=== PATIENT | male | born 1935 | race Hispanic/Latino ===

== ENCOUNTER 2020-07-10 16:08 | Inpatient (IN) | payer OTHER ==
[2020-07-10] MEDS ORDERED: GLUCAGON 1 MG/VIAL IM PRN (17:02)
[2020-07-10 17:13] VITALS: BMI 29.0
[2020-07-10] MEDS ORDERED: D50W 25 GM/50 ML SYRINGE IV PRN (17:24)
[2020-07-10] MEDS: METOPROLOL TAR 25 MG TAB PO SCH (17:51)
[2020-07-10 18:00] LABS: Absolute Lymphocytes (CBC) 1.4 K/uL (0.7-4.9); Basophils % 1.2 % (0-1.3); Hematocrit 22.4 % (39.6-49.0); Lymphocytes % 20.8 % (15.3-44.8); MPV 8.8 fL (7.6-11.3); RBC Red Blood Cell Count 3.96 M/uL (4.33-5.43)
[2020-07-10] MEDS ORDERED: D50W 25 GM/50 ML VIAL IV PRN (18:00)
[2020-07-10 18:13] LABS: Potassium 4.4 mmol/L (3.5-5.1)
[2020-07-10] MEDS ORDERED: PNEUMOCOCCAL VACCINE 0.5 ML IMVAC ONE (19:00)
[2020-07-10 19:21] LABS: Blood Morphology Comment NOTED (NOT SEEN); Platelet Estimate ADEQ; White Blood Cell Scan OK (OK)
[2020-07-10 19:22] LABS: Anisocytosis 3+; Poikilocytosis 3+
[2020-07-10] MEDS: INSULIN -REGULAR HUMAN 50 UNIT/0.5 ML ML SQ SCH (21:00)
[2020-07-10] MEDS ORDERED: ACETAMINOPHEN 500 MG TAB PO PRN (21:01)
[2020-07-10] MEDS: NA CHLORIDE 0.9% 250 ML ONE ×2 (23:40)
[2020-07-11] MEDS: METOPROLOL TAR 25 MG TAB PO SCH ×3 (05:51→18:02)
[2020-07-11 05:59] LABS: Absolute Lymphocytes (CBC) 2.1 K/uL (0.7-4.9); Basophils % 2.1 % (0-1.3); Hematocrit 25.6 % (39.6-49.0); Lymphocytes % 32.9 % (15.3-44.8); MPV 8.5 fL (7.6-11.3); RBC Red Blood Cell Count 4.31 M/uL (4.33-5.43)
[2020-07-11] MEDS: INSULIN -REGULAR HUMAN 50 UNIT/0.5 ML ML SQ SCH ×4 (07:30→21:00)
--- NOTE | 2020-07-11 08:59 | RAD REPORT ---
EXAM DESCRIPTION: CT - Angio Aorta For Dissection - 07/11/2020 7:46 am CLINICAL HISTORY: AAA, chest pain, abdominal pain COMPARISON: Two view chest June 29, 2020, CT abdomen May 2007 TECHNIQUE: Dynamically enhanced 3 mm thick images of the chest, abdomen, and upper pelvis were obtai navya during administration of approximately 150mL Isovue 370 IV contrast. Sagittal and coronal reconst ruction images were generated using MIP and reviewed. Exam utilizes a protocol to evaluate entire cou rse of the aorta. All CT scans are performed using dose optimization technique as appropriate and may include automated exposure control or mA/KV adjustment according to patient size. FINDINGS: Aorta is normal in diameter with no dissection or other acute aortic findings. Aortic wall atherosclerotic calcifications are present without displacement of the calcification. No mural throm bus along the mercedes. Reconstruction images show no significant findings. Prominent iliac wall atherosclerotic calcifications are present without stenosis or luminal narrowing . Left-sided common femoral artery and proximal leg arterial branches are unremarkable. Postsurgical changes are present at the right common femoral artery with multiple bypass grafts in place. All of t he stents appear thrombosed. There is a patent profunda or muscular branch seen in the upper right le g. Pulmonary arteries are normal as well. No cardiomegaly, pericardial thickening or pericardial effusio n. Sternotomy wires are in place. CABG surgical changes are noted. No dense mass or consolidation. A few small scattered ground-glass opacities are present in the lung parenchyma. These are probably areas of minimal atelectasis. Minimal infiltrate is unlikely. No pleur al thickening, pleural effusion or pneumothorax. No abnormal mediastinal or hilar mass or lymphadenopathy seen. No chest wall mass or abnormal axillar y lymphadenopathy. Patient has a large hiatal hernia with approximately 30% of the stomach intrathora cic. Celiac, SMA and renal arteries show no suspicious findings. No mass lesions of the liver, spleen or p ancreas seen. Accessory splenic nodule is present. Full assessment is limited on a single phase acqui sition study. Renal function is symmetric. No hydronephrosis or acute renal parenchymal finding. Part ially filled urinary bladder shows no suspicious finding. Enlarged prostate gland noted. No mass or abnormal lymphadenopathy. No free air, free fluid or inflammatory stranding. No acute bowel finding seen. There is a large amount of stool present filling the colon. Rectum is di stended to 6.5 cm by a large stool volume. Bony degenerative changes are present. No pathologic bone finding identified. IMPRESSION: Negative CT scan of the aorta for dissection, aneurysm or acute finding. 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 A patent profunda or muscular branche is present. Multiple small ground-glass opacities in the lung parenchyma favored to be atelectasis rather than in filtrate. Follow-up CT imaging in 3-6 months can be performed to monitor these findings. Additional nonacute findings detailed in the body of the report.
[2020-07-11] MEDS: MUPIROCIN 2% OINT 22GM TUBE TOP SCH (09:01)
[2020-07-11 10:23] LABS: Anisocytosis 1+; Blood Morphology Comment NOTED (NOT SEEN); Hypochromasia 3+; Platelet Estimate ADEQ; Poikilocytosis 1+
[2020-07-11 10:53] LABS: Urine Appearance CLEAR (Clear); Urine Bilirubin NEGATIVE (Negative); Urine Blood NEGATIVE (Negative); Urine Color YELLOW (Yellow); Urine Glucose NEGATIVE (Negative); Urine Microscopic Reflex NO UMIC; Urine Protein NEGATIVE (Negative); Urine Specific Gravity >=1.030 (1.005-1.030); Urine pH 5.5 (5.0-7.0)
[2020-07-11] MEDS ORDERED: cloNIDine HCL 0.1 MG TAB PO PRN (11:18)
[2020-07-11] MEDS ORDERED: NA CHLORIDE 0.9% 250 ML ONE (11:18)
[2020-07-11] MEDS ORDERED: FUROSEMIDE 20 MG/ 2ML VIAL IV SCH (14:03)
--- NOTE | 2020-07-11 20:12 | PN ---
Date of Progress Note: 07/11/2020 Subjective: The patient is in the process of getting his second unit of blood. He does get bradycar dic with his combination of medications. see how this plays out after he gets his second unit of blood. CT scan showed blockages of his stents on the right lower leg, where he has had all o f his problems including nonhealing of the ulcer on the anterior portion of his leg. We will try and obtain prior records to see if this is acute or chronic. At some point, he may need endoscopy as we ll. In the meantime, we will place him back on his Plavix after second unit of blood. His circulati on does remain an issue. HR/MODL Voice ID: [id number] Report ID: [id number]
[2020-07-11] MEDS ORDERED: METOPROLOL TAR 25 MG TAB PO SCH (21:00)
[2020-07-11] MEDS: HOME MED 1 EA UNK (Pravastatin Sodium [Pravastatin Sodium] 40 MG Tablet) PO SCH (21:00)
[2020-07-11] MEDS ORDERED: CILOSTAZOL 50 MG PO SCH (21:00)
[2020-07-11] MEDS: GABAPENTIN 400 MG CAP PO SCH (21:32)
[2020-07-11] MEDS: TAMSULOSIN 0.4 MG SR CAP PO SCH (21:32)
[2020-07-11] MEDS ORDERED: PANTOPRAZOLE 40MG TABLET PO ONE (22:30)
[2020-07-11] MEDS: cilostazoL 100 MG TAB PO SCH (22:32)
[2020-07-12 05:17] LABS: Absolute Lymphocytes (CBC) 2.2 K/uL (0.7-4.9); Hematocrit 27.3 % (39.6-49.0); Lymphocytes % 27.4 % (15.3-44.8); MPV 8.7 fL (7.6-11.3); Magnesium 2.5 mg/dL (1.8-2.4); Potassium 3.7 mmol/L (3.5-5.1); RBC Red Blood Cell Count 4.55 M/uL (4.33-5.43)
[2020-07-12] MEDS: METOPROLOL TAR 25 MG TAB PO SCH ×2 (06:30→22:35)
[2020-07-12] MEDS: INSULIN -REGULAR HUMAN 50 UNIT/0.5 ML ML SQ SCH ×4 (07:30→21:00)
[2020-07-12] MEDS: MUPIROCIN 2% OINT 22GM TUBE TOP SCH (09:00)
[2020-07-12] MEDS: cilostazoL 100 MG TAB PO SCH ×2 (09:00→21:00)
[2020-07-12] MEDS: GABAPENTIN 400 MG CAP PO SCH ×3 (11:08→22:35)
[2020-07-12] MEDS: CLOPIDOGREL 75 MG TABLET PO SCH (11:09)
[2020-07-12 12:12] LABS: Hematocrit 28.1 % (39.6-49.0)
[2020-07-12] MEDS: PANTOPRAZOLE 40MG TABLET PO SCH ×2 (12:46→22:35)
--- NOTE | 2020-07-12 15:02 | CON ---
Date of Consultation: 07/12/2020 Reason For Consultation: Nonhealing wound, right BKA stump. History Of Present Illness: The patient is an 84-year-old gentleman, who [facility] nonhealing wound that needed debridement and we began his workup and we are going to de bride him as an outpatient; however, the patient's routine labs showed that he was very anemic and wo rkup was begun. He has been transfused and he is not ready for debridement and he was transfused a u nit and a half yesterday blood. I have not been able to get guaiac his stool to see if he is bleedin g or not, but it appears that he has anemia of chronic disease. He is awake, alert. No fever or chi lls. No sore throat, runny nose, cough, headaches, or dizziness. No chest pain. Review of Systems: Otherwise unremarkable. Past Medical History: History of diabetes, hypertension. Past Surgical History: Right below-knee amputation. Allergies: NO ALLERGIES. Social History: The patient currently does not smoke or drink. Family History: Noncontributory. Physical Examination: Vital Signs: Stable. He is afebrile. General: He is awake, alert, and oriented x3. Head and Neck: Cranial nerves 2 through 12 grossly within normal limits. No neck masses. No JVD. Throat clear. Neck: Supple. Chest: Clear. Heart: S1, S2. Abdomen: Soft. Extremity: Diminished dorsalis pedis on the left and posterior tibial on the right BKA stump. The donna solitario does have hair on his BKA stump and there is a wound anterior on the stump. The sacral pressu re wound with moderate amount of fibrin of approximately 1 cm in diameter with minimal erythema, but no warmth. Minimal edema. Laboratory Data: His white count is 8000. His H and H are 8.1 and 27.3. Chemistry reviewed. The p atgregg had a CT dissection study done, which was reviewed with the radiologist. Essentially, the pat ient has occlusion of the right common femoral artery with multiple bypass grafts, but he has a paten t profunda and a muscular branch in the upper right leg, which is supplying the BKA stump. Assessment: Nonhealing wound, right BKA stump. Recommendations: We will go ahead and debride the wound in the morning. The patient and family unde rstand the risks, benefits, and alternatives and agree. Plan of care discussed in detail with Dr. Latricia fuchs. YANELI/JAMI Voice ID: [id number] Report ID: [id number]
--- NOTE | 2020-07-12 16:14 | EKG ---
Test Date: 2020-07-10 Test Time: 17:40:51 Regulatory Affairs Internship: [facility] MEASUREMENT RESULTS: Intervals: Rate: 58 CA: 250 QRSD: 74 QT: 434 QTc: 426 [place]: P: 58 CA: 250 QRS: 73 T: -32 INTERPRETIVE STATEMENTS: Sinus bradycardia with 1st degree AV block Abnormal QRS-T angle, consider primary T wave abnormality Abnormal ECG Compared to ECG 06/29/2020 09:44:29 T-wave abnormality now present Sinus rhythm no longer present Ventricular premature complex(es) no longer present ST (T wave) deviation no longer present Electronically Signed On 07-12-20 16:07:36 CDT by Dale Ruiz
[2020-07-12] MEDS ORDERED: BISACODYL E.C. 5 MG TAB PO ONE (18:00)
[2020-07-12] MEDS: HOME MED 1 EA UNK (Pravastatin Sodium [Pravastatin Sodium] 40 MG Tablet) PO SCH (21:00)
--- NOTE | 2020-07-12 21:38 | PN ---
Date of Progress Note: 07/12/2020 This information was obtained from his granddaughter. She states that during the blood transfusion _ he did have some visual disturbances, which have now improved markedly and none have been p rior to the blood and blood transfusion when he had the BKA in January with no issues. He still not had a bowel movement. A suppository would be necessary to determine his status as far as that is co ncerned. Otherwise, he is scheduling for a surgical debridement of his nonhealing wound anterior estela mp area. HR/MODL Voice ID: [id number] Report ID: [id number]
[2020-07-12] MEDS: TAMSULOSIN 0.4 MG SR CAP PO SCH (22:35)
[2020-07-13 04:17] LABS: Basophils % 0.7 % (0-1.3); Hematocrit 28.4 % (39.6-49.0); Lymphocytes % 27.9 % (15.3-44.8); MPV 8.8 fL (7.6-11.3); RBC Red Blood Cell Count 4.68 M/uL (4.33-5.43)
[2020-07-13 04:33] LABS: Magnesium 2.4 mg/dL (1.8-2.4); Potassium 3.8 mmol/L (3.5-5.1)
[2020-07-13] MEDS: METOPROLOL TAR 25 MG TAB PO SCH (06:00)
[2020-07-13] MEDS: INSULIN -REGULAR HUMAN 50 UNIT/0.5 ML ML SQ SCH ×2 (07:30→11:30)
[2020-07-13] MEDS: PANTOPRAZOLE 40MG TABLET PO SCH (07:30)
[2020-07-13] MEDS: MUPIROCIN 2% OINT 22GM TUBE TOP SCH (09:00)
[2020-07-13] MEDS: GABAPENTIN 400 MG CAP PO SCH (09:00)
[2020-07-13] MEDS: cilostazoL 100 MG TAB PO SCH (09:00)
[2020-07-13] MEDS ORDERED: NA CHLORIDE 0.9% 500 ML ONE (09:37)
[2020-07-13] MEDS ORDERED: propofoL 200 MG/20 ML VIAL IV ONE (09:43)
[2020-07-13] MEDS: COLLAGENASE 30 GM OINTMENT TOP ONE ×2 (09:43→10:42)
[2020-07-13] MEDS ORDERED: LIDOCAINE 2% MPF 5 ML VIAL ONE (09:43)
[2020-07-13] MEDS: CEFAZOLIN/SWI 1gm 1 GM/10 ML SYR ONE ×2 (10:19→10:25)
--- NOTE | 2020-07-13 10:39 | P.OP ---
English Faculty Member: NONE,NONE Preoperative diagnosis: Non healing wound Right BKA Postoperative diagnosis: same Primary procedure: Wide Excision Right BKA wound 2x1 cm to sq Anesthesia: General Estimated blood loss: min Specimen: Debridement tissue Findings: as above Complications: None Transferred to: Recovery Room Condition: Good
[2020-07-13] MEDS ORDERED: CODEINE 30MG/APAP 300MG TAB PO PRN (10:40)
[2020-07-13] MEDS ORDERED: KETOROLAC 30 MG/ML INJ ONE (10:54)
--- NOTE | 2020-07-13 11:18 | OP ---
Date of Procedure: 07/13/2020 Surgeon: Elia Gonzales MD Voice Network Administrator: None. Preoperative Diagnosis: Nonhealing wound, right BKA. Postoperative Diagnosis: Nonhealing wound, right BKA. Procedure: Excisional debridement of right BKA wound 2 x 1 cm to subcutaneous tissue. Estimated Blood Loss: Minimal. Specimen: Debridement tissue. Findings: Above. Anesthesia: General. Complications: None. Disposition: The patient tolerated the procedure in stable condition and taken to Recovery in good g eneral condition. Procedure In Detail: The patient was brought to the OR and placed in supine position. General anest hesia begun. The patient was prepped and draped in the usual sterile fashion and then Marcaine 0.5% was infiltrated locally. A 15-blade was used to make a 2 x 1 cm incision, circular in nature in the anterior aspect of the right BKA. Subcutaneous tissue was divided until healthy bleeding tissue coul d be identified and then the entire nonhealing ulcer was excised and sent to Pathology. Wound was ir rigated. Bleeding was controlled with cautery. Collagenase dressing was applied. The patient kim ated the procedure in stable condition, taken to Recovery in good general condition. /MODL Voice ID: [id number] Report ID: [id number]
[2020-07-13 12:46] VITALS: O2SAT 94
[2020-07-13 12:59] VITALS: BP 141/65; TEMP 97.6
[2020-07-13] MEDS: CLOPIDOGREL 75 MG TABLET PO SCH (13:02)
== END 2020-07-13 15:21 | disposition home or self-care (01) | DRG 465 ==
LOC: 4TH 16:08 → OBSVTOIN 07-12 07:51
PROVIDERS: ADMIT Family Medicine; ATTEND Family Medicine
PROC: 30233N1 Transfusion of Nonautologous Red Blood Cells into Peripheral Vein, Percutaneous Approach (ICD-10-PCS; 2020-07-10)
PROC: 0JBN0ZZ Excision of Right Lower Leg Subcutaneous Tissue and Fascia, Open Approach (ICD-10-PCS; principal; 2020-07-13 10:30)
DX: T87.89 Other complications of amputation stump (principal); I10 Essential (primary) hypertension; E11.9 Type 2 diabetes mellitus without complications; D63.8 Anemia in other chronic diseases classified elsewhere; Z89.611 Acquired absence of right leg above knee; Z89.511 Acquired absence of right leg below knee; Z20.822 Contact with and (suspected) exposure to COVID-19
CPT/HCPCS: 36415; 36430; 71275; 74175; 80048; 81003; 82274; 82947; 83735; 85014; 85018; 85025; 86850; 86900; 86901; 88304; 93005; G0378; J0690; J1940; J2704; J3590; J7040; J7050; P9016; Q9967; U0003

== ENCOUNTER 2022-12-26 13:52 | Inpatient (IN) | payer OTHER ==
--- OUTSIDE RECORDS SUMMARY | 2022-12-26 14:19 | XMS REPORT | Continuity of Care Document ---
:1935 Author Organization [facility] t Address [address] [facility] [address] [place] [address] Care Team Providers Name Role Phone PCP, PATIENT DOES NOT HAVE A Primary Care Physician UnavailEMA Azul JR Attending Clinician Unavailable Justo Lopez Attending Clinician Unavailable Doctor Unassigned, [place] Attending Clinician Unavailable Shakeel Fritz Attending Clinician Unavailable Kristan Gunter RN Attending Clinician Vero Messer Attending Clinician Tia Gutiérrez Attending Clinician Faculty, Vascular Surg Attending Clinician Unavailable Bryanna Pradhan Attending Clinician BRYANNA GR Attending Clinician Unavailable Ema Sam MD Attending Clinician Jr Ferguson MD Attending Clinician Estrellita So MD Attending Clinician John Rush MD, Rey Attending Clinician REY EDMONDSON Attending Clinician Unavailable Hattie [place], Carole Saeed Attending Clinician [phone] Power [place], Mireille Edmondson Attending Clinician Ha Martin MD Attending Clinician Miranda [place], Bianca Moseley Attending Clinician [phone] Mariana [place], Gerardo Thomas Attending Clinician Ainsley BURGOS, Seun العلي Attending Clinician Unavailable ÁNGEL PEÑA Attending Clinician Unavailable Lisandra Fairbakns MD Attending Clinician Mariana [place], Ángel Attending Clinician SUSAN HOLLINGSWORTH Attending Clinician Unavailable Bj [place], Shakeel Falk Attending Clinician Darrick [place], Susan Attending Clinician GERI SABA Attending Clinician Unavailable Dena Faye DO Attending Clinician Geri Saba MD Attending Clinician Maria Guadalupe BURGOS, Ashli Attending Clinician Winston Prieto MD Attending Clinician CAMMIE GREENBERG Attending Clinician Unavailable Kira Leija MD Attending Clinician Cammie Greenberg MD Attending Clinician EMA SAM JR Admitting Clinician Unavailable Yefri Salgado Admitting Clinician Unavailable Ema Sam MD Admitting Clinician Power [place], Mireille Edmondson Admitting Clinician ÁNGEL PEÑA Admitting Clinician Unavailable Mariana [place], Ángel Admitting Clinician SUSAN HOLLINGSWORTH Admitting Clinician Unavailable Darrick [place], Susan Admitting Clinician GERI SABA Admitting Clinician Unavailable Geri Saba MD Admitting Clinician WINSTON PRIETO Admitting Clinician Unavailable Winston Prieto MD Admitting Clinician Payers Payer Name Policy Type Policy Number Effective Date Expiration Date Bernabe almanza [facility] [id number] 2019 2019 EMERGENCY 00:00:00 00:00:00 MEDICAID Problems Condition Condition Condition Status Onset Resolution Last Treating Co mments Source Name Details Category Date Date Treatment Clinician Date Thrombosis Thrombosis Disease Active 2019-03 U nivers of of 03-27 ity of femoro[place] Medical bypass bypass Branch graft, graft, initial initial encounter encounter Pain in Pain in Disease Active 2019-03 Overview: Univ ers right right 03-27 Added ity of lower leg lower leg 00:00: [place] ally from Medical request Branch for surgery [id number] Peripheral Peripheral Disease Active 2019-03 Overview : Univers artery artery 04 Added ity of disease disease 00:00: automatic [place] 00 ally from Medical request Branch for surgery [id number] PAD PAD Disease Active 2019-03 Overview: Univer s (periphera (periphera 0-26 Added it y of l artery l artery 00:00: automatic [place] disease) disease) 00 ally from Med ical request Branch for surgery [id number] 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 9-16 it y of constipati constipati [place] Medical Branch Chronic Chronic Disease Active Univers osteomyeli osteomyeli 9-15 it y of tis of tis of 00:00: [place] right foot right foot 00 Me dical Branch Chronic Chronic Disease Active Univers infection infection 9-11 ity of as as 00:00: [place] complicati complicati 00 Me dical on of on of Branch amputation amputation NIKO (acute NIKO (acute Disease Active U nivers kidney kidney 6- ity of injury) injury) 00:00: [place] 00 Medical Branch Melena Melena Disease Active Overview: Univer s 6-08 Added ity of 00:00: automatic [place] 00 ally from Medical request Branch for surgery [id number] Pain of Pain of Disease Active Overview: Univ ers toe, toe, 6-08 Added ity of unspecifie unspecifie 00:00: automatic [place] d d 00 ally from Medical laterality laterality request B ranch for surgery [id number] Foot Foot Disease Active Univers infection infection 5-23 ity of 00:00: [place] 00 Medical Branch Cellulitis Cellulitis Disease Active U nivers of right of right 5-22 ity of foot foot 00:00: [place] 00 Medical Branch Anemia Anemia Disease Active Univers 5-15 ity of 00:00: [place] 00 Medical Branch Diabetic Diabetic Disease Active Unive rs toe ulcer toe ulcer 3-15 ity of 00:00: [place] 00 Medical Branch Right foot Right foot Disease Active Overview : Univers pain pain 3-15 Added ity of 00:00: automatic [place] 00 ally from Medical request Branch for surgery [id number] Coronary Coronary Disease Active Unive rs atheroscle atheroscle 3-17 it y of rosis of rosis of 00:00: [place] white earth white earth 00 Medical coronary coronary Branch artery artery Essential Essential Disease Active Overview: Univers hypertensi hypertensi 3-17 ICD10 it y of on on 00:00: Diagnosis [place] 00 Term Medical Airplane Inspector Branch Utility 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 3-17 ICD10 ity of mellitus mellitus 00:00: Diagnosis [place] without without 00 Term Medical complicati complicati Airplane Inspector Branch ons ons Utility Well Well Disease Active Univers controlled controlled 3-17 it y of diabetes diabetes 00:00: [place] mellitus mellitus 00 Medica l Branch Coronary Coronary Disease Active Unive rs atheroscle atheroscle 3-17 it y of rosis of rosis of 00:00: [place] white earth white earth 00 Medical coronary coronary Branch artery artery Severe Severe Disease Active Univers peripheral peripheral 2-28 it y of arterial arterial 00:00: [place] disease disease 00 Medical Branch PAD PAD Disease Active Univers (periphera (periphera 2-28 it y of l artery l artery 00:00: [place] disease) disease) 00 Medica l Branch Allergies, Adverse Reactions, Alerts Allergy Allergy Status Severity Reaction(s) Onset Inactive Treating Comm ents Source Name Type Date Date Clinician NO KNOWN Drug Active Univers ALLERGIE Class ity of S [facility] Social History Social Habit Start Date Stop Date Quantity Comments Source Exposure to Not sure University of SARS-CoV-2 [place] [facility] (event) Branch Tobacco use and 2020-03-02 2020-03-02 Never used Universit y of exposure 00:00:00 00:00:00 [facility] Alcohol intake 2020-03-02 2020-03-02 Current University of 00:00:00 00:00:00 non-drinker of [facility] alcohol Branch (finding) History SDOH 2019-12-04 2019-12-04 4 University o f Financial 00:00:00 00:00:00 [place] [facility] History SDUT Food 2019-12-04 2019-12-04 1 Univers ity of Worry 00:00:00 00:00:00 [place] [facility] History SDUT Food 2019-12-04 2019-12-04 1 Univers ity of Scarcity 00:00:00 00:00:00 [place] [facility] History [facility] 2019-12-04 2019-12-04 1 University o f Transport Med 00:00:00 00:00:00 [place] Medic al Branch History [facility] 2019-12-04 2019-12-04 1 University o f Transport Non-Med 00:00:00 00:00:00 [place] M edical Branch Tobacco Comment 2019-08-06 2019-08-06 stopped 1988 Univers ity of 00:00:00 00:00:00 [facility] Sex Assigned At [birth year] Universit y of 00:00:00 00:00:00 [facility] Smoking Status Start Date Stop Date Source Former smoker 2020-03-02 00:00:00 2020-03-02 00:00:00 Universi ty of [facility] Medications Ordered Filled Start Stop Current Ordering Indication Dosage Frequency Signature Comments Components Source Medication Medication Date Date Medication? Clinician (SIG) Name Name acetaminoph 2019-03- No 2745 1{tbl} Take 1 U nivers en-codeine 04-25 tablet by ity of 300-30 mg 00:00: 05:59 mouth [place] tablet 00 :00 every 6 Medical (six) Branch hours as needed for Pain (scale 7-10) for up to 30 days. Indication s: chronic pain acetaminoph 2019-03- No 2745 1{tbl} Take 1 U nivers en-codeine 2-02 01-02 tablet by ity of 300-30 mg 00:00: 05:59 mouth [place] tablet 00 :00 every 6 Medical (six) Branch hours as needed for Pain (scale 7-10) for up to 30 days. Indication s: chronic pain acetaminoph 2019-03 No 2745 1{tbl} Take 1 U nivers en-codeine 2-02 01-02 tablet by ity of 300-30 mg 00:00: 05:59 mouth [place] tablet 00 :00 every 6 Medical (six) Branch hours as needed for Pain (scale 7-10) for up to 30 days. Indication s: chronic pain acetaminoph 2019-03 No 274 1{tbl} Take 1 U nivers en-codeine 2-02 -02 tablet by ity of 300-30 mg 00:00: 05:59 mouth [place] tablet 00 :00 every 6 Medical (six) Branch hours as needed for Pain (scale 7-10) for up to 30 days. Indication s: chronic pain acetaminoph 2019-03 No 274 1{tbl} Take 1 U nivers en-codeine 2-02 -02 tablet by ity of 300-30 mg 00:00: 05:59 mouth [place] tablet 00 :00 every 6 Medical (six) Branch hours as needed for Pain (scale 7-10) for up to 30 days. Indication s: chronic pain acetaminoph 2019-03 No 274 1{tbl} Take 1 U nivers en-codeine 2-02 -02 tablet by ity of 300-30 mg 00:00: 05:59 mouth [place] tablet 00 :00 every 6 Medical (six) Branch hours as needed for Pain (scale 7-10) for up to 30 days. Indication s: chronic pain acetaminoph 2019-03 Yes 4647 1{tbl} Take 1 Un martha en-codeine 1-19 tablet by ity of 300-30 mg 00:00: mouth [place] tablet 00 every 4 Medical (four) Branch hours as needed for Pain (scale 7-10) for up to 30 doses. Indication s: acute pain acetaminoph 2019-03 Yes 4647 1{tbl} Take 1 Un martha en-codeine 1-19 tablet by ity of 300-30 mg 00:00: mouth [place] tablet 00 every 4 Medical (four) Branch hours as needed for Pain (scale 7-10) for up to 30 doses. Indication s: acute pain acetaminoph 2020-1 Yes 4647 1{tbl} Take 1 Un martha en-codeine 1-19 tablet by ity of 300-30 mg 00:00: mouth [place] tablet 00 every 4 Medical (four) Branch hours as needed for Pain (scale 7-10) for up to 30 doses. Indication s: acute pain acetaminoph 2020-1 Yes 4647 1{tbl} Take 1 Un martha en-codeine 1-19 tablet by ity of 300-30 mg 00:00: mouth [place] tablet 00 every 4 Medical (four) Branch hours as needed for Pain (scale 7-10) for up to 30 doses. Indication s: acute pain acetaminoph 2020-1 Yes 4647 1{tbl} Take 1 Un martha en-codeine 1-19 tablet by ity of 300-30 mg 00:00: mouth [place] tablet 00 every 4 Medical (four) Branch hours as needed for Pain (scale 7-10) for up to 30 doses. Indication s: acute pain acetaminoph 2020-1 Yes 4647 1{tbl} Take 1 Un martha en-codeine 1-19 tablet by ity of 300-30 mg 00:00: mouth [place] tablet 00 every 4 Medical (four) Branch hours as needed for Pain (scale 7-10) for up to 30 doses. Indication s: acute pain acetaminoph 2020-1 Yes 4647 1{tbl} Take 1 Un martha en-codeine 1-19 tablet by ity of 300-30 mg 00:00: mouth [place] tablet 00 every 4 Medical (four) Branch hours as needed for Pain (scale 7-10) for up to 30 doses. Indication s: acute pain acetaminoph 2020-1 Yes 4647 1{tbl} Take 1 Un martha en-codeine 1-19 tablet by ity of 300-30 mg 00:00: mouth [place] tablet 00 every 4 Medical (four) Branch hours as needed for Pain (scale 7-10) for up to 30 doses. Indication s: acute pain acetaminoph 2020-1 Yes 4647 1{tbl} Take 1 Un martha en-codeine 1-19 tablet by ity of 300-30 mg 00:00: mouth [place] tablet 00 every 4 Medical (four) Branch hours as needed for Pain (scale 7-10) for up to 30 doses. Indication s: acute pain acetaminoph 2020-1 Yes 4647 1{tbl} Take 1 Un martha en-codeine 1-19 tablet by ity of 300-30 mg 00:00: mouth [place] tablet 00 every 4 Medical (four) Branch hours as needed for Pain (scale 7-10) for up to 30 doses. Indication s: acute pain acetaminoph 2020-1 Yes 4647 1{tbl} Take 1 Un martha en-codeine 1-19 tablet by ity of 300-30 mg 00:00: mouth [place] tablet 00 every 4 Medical (four) Branch hours as needed for Pain (scale 7-10) for up to 30 doses. Indication s: acute pain acetaminoph 2020-1 Yes 4647 1{tbl} Take 1 Un martha en-codeine 1-19 tablet by ity of 300-30 mg 00:00: mouth [place] tablet 00 every 4 Medical (four) Branch hours as needed for Pain (scale 7-10) for up to 30 doses. Indication s: acute pain acetaminoph 2020-1 Yes 4647 1{tbl} Take 1 Un martha en-codeine 1-19 tablet by ity of 300-30 mg 00:00: mouth [place] tablet 00 every 4 Medical (four) Branch hours as needed for Pain (scale 7-10) for up to 30 doses. Indication s: acute pain acetaminoph 2020-1 Yes 4647 1{tbl} Take 1 Un martha en-codeine 1-19 tablet by ity of 300-30 mg 00:00: mouth [place] tablet 00 every 4 Medical (four) Branch hours as needed for Pain (scale 7-10) for up to 30 doses. Indication s: acute pain acetaminoph 2020-1 Yes 4647 1{tbl} Take 1 Un martha en-codeine 1-19 tablet by ity of 300-30 mg 00:00: mouth [place] tablet 00 every 4 Medical (four) Branch hours as needed for Pain (scale 7-10) for up to 30 doses. Indication s: acute pain acetaminoph 2020-1 Yes 4647 1{tbl} Take 1 Un martha en-codeine 1-19 tablet by ity of 300-30 mg 00:00: mouth [place] tablet 00 every 4 Medical (four) Branch hours as needed for Pain (scale 7-10) for up to 30 doses. Indication s: acute pain acetaminoph 2020-1 Yes 4647 1{tbl} Take 1 Un martha en-codeine 1-19 tablet by ity of 300-30 mg 00:00: mouth [place] tablet 00 every 4 Medical (four) Branch hours as needed for Pain (scale 7-10) for up to 30 doses. Indication s: acute pain acetaminoph 2020-1 Yes 4647 1{tbl} Take 1 Un martha en-codeine 1-19 tablet by ity of 300-30 mg 00:00: mouth [place] tablet 00 every 4 Medical (four) Branch hours as needed for Pain (scale 7-10) for up to 30 doses. Indication s: acute pain acetaminoph 2020-1 Yes 4647 1{tbl} Take 1 Un martha en-codeine 1-19 tablet by ity of 300-30 mg 00:00: mouth [place] tablet 00 every 4 Medical (four) Branch hours as needed for Pain (scale 7-10) for up to 30 doses. Indication s: acute pain clopidogreL 2020- Yes 75mg Take 75 mg Univers 75 mg 1-11 by mouth ity of tablet 03:45: daily. [address] clopidogreL 2020-1 Yes 75mg Take 75 mg Univers 75 mg 1-11 by mouth ity of tablet 03:45: daily. [address] clopidogreL 2020-1 Yes 75mg Take 75 mg Univers 75 mg 1-11 by mouth ity of tablet 03:45: daily. [address] clopidogreL 2020-1 Yes 75mg Take 75 mg Univers 75 mg 1-11 by mouth ity of tablet 03:45: daily. [address] clopidogreL 2020-1 Yes 75mg Take 75 mg Univers 75 mg 1-11 by mouth ity of tablet 03:45: daily. [address] clopidogreL 2020-1 Yes 75mg Take 75 mg Univers 75 mg 1-11 by mouth ity of tablet 03:45: daily. [address] clopidogreL 2020-1 Yes 75mg Take 75 mg Univers 75 mg 1-11 by mouth ity of tablet 03:45: daily. [address] clopidogreL 2020-1 Yes 75mg Take 75 mg Univers 75 mg 1-11 by mouth ity of tablet 03:45: daily. [address] clopidogreL 2020-1 Yes 75mg Take 75 mg Univers 75 mg 1-11 by mouth ity of tablet 03:45: daily. [address] clopidogreL 2020-1 Yes 75mg Take 75 mg Univers 75 mg 1-11 by mouth ity of tablet 03:45: daily. [address] clopidogreL 2020-1 Yes 75mg Take 75 mg Univers 75 mg 1-11 by mouth ity of tablet 03:45: daily. [address] clopidogreL 2020-1 Yes 75mg Take 75 mg Univers 75 mg 1-11 by mouth ity of tablet 03:45: daily. [address] clopidogreL 2020-1 Yes 75mg Take 75 mg Univers 75 mg 1-11 by mouth ity of tablet 03:45: daily. [address] clopidogreL 2020-1 Yes 75mg Take 75 mg Univers 75 mg 1-11 by mouth ity of tablet 03:45: daily. [address] clopidogreL 2020-1 Yes 75mg Take 75 mg Univers 75 mg 1-11 by mouth ity of tablet 03:45: daily. [address] clopidogreL 2020-1 Yes 75mg Take 75 mg Univers 75 mg 1-11 by mouth ity of tablet 03:45: daily. [address] clopidogreL 2020-1 Yes 75mg Take 75 mg Univers 75 mg 1-11 by mouth ity of tablet 03:45: daily. [address] clopidogreL 2020-1 Yes 75mg Take 75 mg Univers 75 mg 1-11 by mouth ity of tablet 03:45: daily. [address] clopidogreL 2020-1 Yes 75mg Take 75 mg Univers 75 mg 1-11 by mouth ity of tablet 03:45: daily. [address] clopidogreL 2020-1 Yes 75mg Take 75 mg Univers 75 mg 1-11 by mouth ity of tablet 03:45: daily. [address] clopidogreL 2020-1 Yes 75mg Take 75 mg Univers 75 mg 1-11 by mouth ity of tablet 03:45: daily. [address] clopidogreL 2020-1 Yes 75mg Take 75 mg Univers 75 mg 1-11 by mouth ity of tablet 03:45: daily. [address] clopidogreL 2020-1 Yes 75mg Take 75 mg Univers 75 mg 1-11 by mouth ity of tablet 03:45: daily. [address] acetaminoph 2019-03 Yes [id number] 325mg Take 1 Univers en 1-10 9108 tablet by ity of (TYLENOL) 00:00: mouth [place] 325 mg 00 every 6 Medical tablet (six) Branch hours as needed for Pain (scale 4-6). acetaminoph 2019-03 Yes [id number] 325mg Take 1 Univers en 1-10 9108 tablet by ity of (TYLENOL) 00:00: mouth [place] 325 mg 00 every 6 Medical tablet (six) Branch hours as needed for Pain (scale 4-6). acetaminoph 2019-03 Yes [id number] 325mg Take 1 Univers en 1-10 9108 tablet by ity of (TYLENOL) 00:00: mouth [place] 325 mg 00 every 6 Medical tablet (six) Branch hours as needed for Pain (scale 4-6). acetaminoph 2019-03 Yes [id number] 325mg Take 1 Univers en 1-10 9108 tablet by ity of (TYLENOL) 00:00: mouth [place] 325 mg 00 every 6 Medical tablet (six) Branch hours as needed for Pain (scale 4-6). acetaminoph 2019-03 Yes [id number] 325mg Take 1 Univers en 1-10 9108 tablet by ity of (TYLENOL) 00:00: mouth [place] 325 mg 00 every 6 Medical tablet (six) Branch hours as needed for Pain (scale 4-6). acetaminoph 2019-03 Yes [id number] 325mg Take 1 Univers en 1-10 9108 tablet by ity of (TYLENOL) 00:00: mouth [place] 325 mg 00 every 6 Medical tablet (six) Branch hours as needed for Pain (scale 4-6). acetaminoph 2019-03 Yes [id number] 325mg Take 1 Univers en 1-10 9108 tablet by ity of (TYLENOL) 00:00: mouth [place] 325 mg 00 every 6 Medical tablet (six) Branch hours as needed for Pain (scale 4-6). acetaminoph 2019-03 Yes [id number] 325mg Take 1 Univers en 1-10 9108 tablet by ity of (TYLENOL) 00:00: mouth [place] 325 mg 00 every 6 Medical tablet (six) Branch hours as needed for Pain (scale 4-6). acetaminoph 2019-03 Yes [id number] 325mg Take 1 Univers en 1-10 9108 tablet by ity of (TYLENOL) 00:00: mouth [place] 325 mg 00 every 6 Medical tablet (six) Branch hours as needed for Pain (scale 4-6). acetaminoph 2019-03 Yes [id number] 325mg Take 1 Univers en 1-10 9108 tablet by ity of (TYLENOL) 00:00: mouth [place] 325 mg 00 every 6 Medical tablet (six) Branch hours as needed for Pain (scale 4-6). acetaminoph 2019-03 Yes [id number] 325mg Take 1 Univers en 1-10 9108 tablet by ity of (TYLENOL) 00:00: mouth [place] 325 mg 00 every 6 Medical tablet (six) Branch hours as needed for Pain (scale 4-6). acetaminoph 2019-03 Yes [id number] 325mg Take 1 Univers en 1-10 9108 tablet by ity of (TYLENOL) 00:00: mouth [place] 325 mg 00 every 6 Medical tablet (six) Branch hours as needed for Pain (scale 4-6). acetaminoph 2019-03 Yes [id number] 325mg Take 1 Univers en 1-10 9108 tablet by ity of (TYLENOL) 00:00: mouth [place] 325 mg 00 every 6 Medical tablet (six) Branch hours as needed for Pain (scale 4-6). acetaminoph 2019-03 Yes [id number] 325mg Take 1 Univers en 1-10 9108 tablet by ity of (TYLENOL) 00:00: mouth [place] 325 mg 00 every 6 Medical tablet (six) Branch hours as needed for Pain (scale 4-6). acetaminoph 2019-03 Yes [id number] 325mg Take 1 Univers en 1-10 9108 tablet by ity of (TYLENOL) 00:00: mouth [place] 325 mg 00 every 6 Medical tablet (six) Branch hours as needed for Pain (scale 4-6). acetaminoph 2020 Yes [id number] 325mg Take 1 Univers en 1-10 9108 tablet by ity of (TYLENOL) 00:00: mouth [place] 325 mg 00 every 6 Medical tablet (six) Branch hours as needed for Pain (scale 4-6). acetaminoph 2019-03 Yes [id number] 325mg Take 1 Univers en 1-10 9108 tablet by ity of (TYLENOL) 00:00: mouth [place] 325 mg 00 every 6 Medical tablet (six) Branch hours as needed for Pain (scale 4-6). acetaminoph 2019-03 Yes [id number] 325mg Take 1 Univers en 1-10 9108 tablet by ity of (TYLENOL) 00:00: mouth [place] 325 mg 00 every 6 Medical tablet (six) Branch hours as needed for Pain (scale 4-6). acetaminoph 2019-03 Yes [id number] 325mg Take 1 Univers en 1-10 9108 tablet by ity of (TYLENOL) 00:00: mouth [place] 325 mg 00 every 6 Medical tablet (six) Branch hours as needed for Pain (scale 4-6). acetaminoph 2019-03 Yes [id number] 325mg Take 1 Univers en 1-10 9108 tablet by ity of (TYLENOL) 00:00: mouth [place] 325 mg 00 every 6 Medical tablet (six) Branch hours as needed for Pain (scale 4-6). acetaminoph 2019-03 Yes [id number] 325mg Take 1 Univers en 1-10 9108 tablet by ity of (TYLENOL) 00:00: mouth [place] 325 mg 00 every 6 Medical tablet (six) Branch hours as needed for Pain (scale 4-6). acetaminoph 2019-03 Yes [id number] 325mg Take 1 Univers en 1-10 9108 tablet by ity of (TYLENOL) 00:00: mouth [place] 325 mg 00 every 6 Medical tablet (six) Branch hours as needed for Pain (scale 4-6). acetaminoph 2019-03 Yes [id number] 325mg Take 1 Univers en 1-10 9108 tablet by ity of (TYLENOL) 00:00: mouth [place] 325 mg 00 every 6 Medical tablet (six) Branch hours as needed for Pain (scale 4-6). cyclobenzap 2019-03 2020- No [id number] 5mg Take 1 Univers rine 5 mg 1-10 12-11 9108 tablet by ity of tablet 00:00: 05:59 mouth 3 [place] 00 :00 (three) Medical times Branch daily for 30 days. cyclobenzap 2019-03 2020- No [id number] 5mg Take 1 Univers rine 5 mg 1-10 12-11 9108 tablet by ity of tablet 00:00: 05:59 mouth 3 [place] 00 :00 (three) Medical times Branch daily for 30 days. cyclobenzap 2019- 2020- No [id number] 5mg Take 1 Univers rine 5 mg 1-01 02-11 9108 tablet by ity of tablet 00:00: 05:59 mouth 3 [place] 00 :00 (three) Medical times Branch daily for 30 days. cyclobenzap 2019-03 2020- No [id number] 5mg Take 1 Univers rine 5 mg 1- 12-11 9108 tablet by ity of tablet 00:00: 05:59 mouth 3 [place] 00 :00 (three) Medical times Branch daily for 30 days. cyclobenzap 2019-03 2020- No [id number] 5mg Take 1 Univers rine 5 mg 1- 12-11 9108 tablet by ity of tablet 00:00: 05:59 mouth 3 [place] 00 :00 ([facility]) Medical times Branch daily for 30 days. cyclobenzap 2019-03- No [id number] 5mg Take 1 Univers rine 5 mg 1-01 02- 9108 tablet by ity of tablet 00:00: 05:59 mouth 3 [place] 00 :00 ([facility]) Medical times Branch daily for 30 days. cyclobenzap 2019-03 2020- No [id number] 5mg Take 1 Univers rine 5 mg 04-02- 9108 tablet by ity of tablet 00:00: 05:59 mouth 3 [place] 00 :00 ([facility]) Medical times Branch daily for 30 days. cyclobenzap 2019-03 2020- No [id number] 5mg Take 1 Univers rine 5 mg 04-02- 9108 tablet by ity of tablet 00:00: 05:59 mouth 3 [place] 00 :00 (three) Medical times Branch daily for 30 days. cyclobenzap 2019-03 2020- No [id number] 5mg Take 1 Univers rine 5 mg - 12-11 9108 tablet by ity of tablet 00:00: 05:59 mouth 3 [place] 00 :00 (three) Medical times Branch daily for 30 days. cyclobenzap 2019- 2020- No [id number] 5mg Take 1 Univers rine 5 mg 1-10 12-11 9108 tablet by ity of tablet 00:00: 05:59 mouth 3 [place] 00 :00 (three) Medical times Branch daily for 30 days. cyclobenzap 2019- 2020- No [id number] 5mg Take 1 Univers rine 5 mg 04-02 9108 tablet by ity of tablet 00:00: 05:59 mouth 3 [place] 00 :00 (three) Medical times Branch daily for 30 days. cyclobenzap 2019-03- No [id number] 5mg Take 1 Univers rine 5 mg 04-02 9108 tablet by ity of tablet 00:00: 05:59 mouth 3 [place] 00 :00 (three) Medical times Branch daily for 30 days. cyclobenzap 2019-03- No [id number] 5mg Take 1 Univers rine 5 mg 04-02 9108 tablet by ity of tablet 00:00: 05:59 mouth 3 [place] 00 :00 (three) Medical times Branch daily for 30 days. cyclobenzap 2019-03- No [id number] 5mg Take 1 Univers rine 5 mg 04-02 9108 tablet by ity of tablet 00:00: 05:59 mouth 3 [place] 00 :00 (three) Medical times Branch daily for 30 days. cyclobenzap 2019-03 No [id number] 5mg Take 1 Univers rine 5 mg 04-02 9108 tablet by ity of tablet 00:00: 05:59 mouth 3 [place] 00 :00 (three) Medical times Branch daily for 30 days. HYDROcodone 2019-03 No 4647 1{tbl} Take 1 U nivers -acetaminop 04-02-18 tablet by it y of hen 5-325 00:00: 05:59 mouth [place] mg tablet 00 :00 every 4 Medical (four) Branch hours as needed for Pain (scale 4-6) for up to 7 days. Indication s: acute pain docusate 2019-03- No [id number] 100mg Take 1 [facility] (COLACE) 04-02 9108 capsule by ity of 100 mg 00:00: 05:59 mouth [place] capsule 00 :00 daily for Medical 7 days. Branch HYDROcodone 2019-03- No 4647 1{tbl} Take 1 U nivers -acetaminop - 11-18 tablet by it y of hen 5-325 00:00: 05:59 mouth [place] mg tablet 00 :00 every 4 Medical (four) Branch hours as needed for Pain (scale 4-6) for up to 7 days. Indication s: acute pain docusate 2019-03- No [id number] 100mg Take 1 [facility] (COLACE) 04-02 9108 capsule by ity of 100 mg 00:00: 05:59 mouth [place] capsule 00 :00 daily for Medical 7 days. [place] HYDROcodone 2019-03 2020- No 4647 1{tbl} Take 1 U nivers -acetaminop 04-02 tablet by it y of hen 5-325 00:00: 05:59 mouth [place] mg tablet 00 :00 every 4 Medical (four) Branch hours as needed for Pain (scale 4-6) for up to 7 days. Indication s: acute pain docusate 2019-03- No [id number] 100mg Take 1 Univers (COLACE) 04-02 9108 capsule by ity of 100 mg 00:00: 05:59 mouth [place] capsule 00 :00 daily for Medical 7 days. [place] NaCl 0.9% 2019-03- No 250mL 250 mL, IV Univers (NS) IV 04-01 Infusion, ity of Line 13:00: 14:38 ONCE, 1 [place] Priming and 00 :00 dose, Mon Med ical [place] 01/31/20 at [facility] h Fluid Only 0700, 250 250 mL mL morpHINE 2019-03 Yes 2mg 2 mg, Slow Uni vers injection 2 03-30 IV Push, ity of mg 17:45: Q3HPRN, [place] 00 Starting Medical Sat [place] 01/29/20 at 1145, Until Discontinu ed, Routine, Pain (scale 7-10) metoprolol 2019-03 Yes 25mg 25 mg, Unive rs tartrate 07 Oral, ity of (LOPRESSOR) 14:00: Q12H, [place] tablet 25 00 First dose Medi bharat mg (after Branch last modificati on) on 01/29/20 at 0800, Until Discontinu ed, Routine sodium 2019-03 Yes PRN, Univers chloride 07 Starting ity of 0.9 % 01:15: Fri [place] irrigation 00 01/28/20 at Med ical solution 1915, Branch Until Discontinu ed, Intra-op cyclobenzap 2019-03 Yes 5mg 5 mg, Unive rs rine 1-06 Oral, TID, ity of (FLEXERIL) 02:00: First dose [place] tablet 5 mg 00 on [facility] 01/27/20 at Branch 2000, Until Discontinu ed, Routine ketorolac 2019-03 2020- No 15mg 15 mg, Unive rs (TORADOL) 03-29 Slow IV ity of injection 00:30: 23:59 Push, Q6H, [place] 15 mg 00 :00 4 doses, Medical First dose Branch on [facility] 01/27/20 at 1830, Last dose on Fri01/28/20 at 1200, Routine
cleaning crew member approving Restricted medication : EMA SAM JR morpHINE 2019-03- No 4mg 4 mg, Slow Un martha injection 4 03-29 IV Push, ity of mg 00:17: 17:33 Q4HPRN, [place] 22 :08 Starting Medical [facility] 01/27/20 at 1817, Until 01/29/20 at 1133, Routine, Pain (scale 7-10) sennosides 2019-03 Yes 8.6mg 8.6 mg, Uni vers (SENOKOT) 1-05 Oral, ity of tablet 8.6 15:00: DAILY, [place] mg 00 First dose Medical on [facility] 01/27/20 at 0900, Until Discontinu ed, Routine tamsulosin 2019-03 Yes .4mg 0.4 mg, Univ ers (FLOMAX) 1-05 Oral, ity of capsule 0.4 15:00: DAILY, [place] mg 00 First dose Medical on [facility] 01/27/20 at 0900, Until Discontinu ed, Routine clopidogreL 2019-03 Yes 75mg 75 mg, Univ ers (PLAVIX) 1-05 Oral, ity of tablet 75 15:00: DAILY, [place] mg 00 First dose Medical on [facility] Branch 01/27/20 at 0900, Until Discontinu ed, Routine acetaminoph 2019-03 Yes 650mg 650 mg, Un martha en 1-05 Oral, Q6H, ity of (TYLENOL) 12:00: First dose [place] tablet 650 00 (after Medical mg last Branch modificati on) on [facility] 01/27/20 at 0600, Until Discontinu ed, Routine ibuprofen 2019-03 Yes 200mg 200 mg, Univ ers (MOTRIN IB) 1-05 Oral, Q6H, it y of tablet 200 12:00: First dose [place] mg 00 on [facility] Medical 01/27/20 at Branch 0600, Until Discontinu ed, Routine HYDROcodone 2019-03 Yes 1{tbl} 1 tablet, Univers -acetaminop 05 Oral, ity of hen (NORCO 11:14: Q4HPRN, [place] 5) 5-325 mg 52 Starting Medi bharat tablet 1 Fri [place] tablet 01/27/20 at 0514, Until Discontinu ed, Routine, Pain (scale 4-6) acetaminoph 2019-03 No 650mg 650 mg, U nivers en 03-28 1105 Oral, Q6H, ity of (TYLENOL) 06:00: 11:15 First dose [place] tablet 650 00 :24 (after Medical mg last Branch modificati on) on [facility] 01/27/20 at 0000, Until Discontinu ed, Routine clopidogreL 2019-03 Yes 75mg Take 75 mg Univers 75 mg 05 by mouth ity of tablet 03:46: daily. [address] clopidogreL 2019-03 Yes 75mg Take 75 mg Univers 75 mg -05 by mouth ity of tablet 03:46: daily. [address] clopidogreL 2019-03 Yes 75mg Take 75 mg Univers 75 mg -05 by mouth ity of tablet 03:46: daily. [address] pravastatin 2019-03 Yes 40mg 40 mg, Univ ers (PRAVACHOL) 05 Oral, QHS, it y of tablet 40 03:00: First dose [place] mg 00 on Fri [facility] 01/26/20 at Branch 2100, Until Discontinu ed, Routine rifAMPin 2019-03 Yes 300mg 300 mg, Unive rs (RIFADIN) 105 Oral, ity of capsule 300 02:00: Q12H, [place] mg 00 First dose Medical on Fri [place] 01/26/20 at 2000, Until Discontinu ed, ONESIMO
Re ason for Anti-Infec tive: Documented Infection< br>Documen sapna Infection Site: Vascular<b r>Duration of Therapy: 7 days Polyethylen 2019-03 Yes 17g 17 g, Unive rs e Glycol 1-05 Oral, BID, ity o f 3350 02:00: First dose [place] (MIRALAX) 00 on Fri Medical powder 17 g 01/26/20 at Br anch 1999, Until Discontinu ed, Routine gabapentin 2019-03 Yes 400mg 400 mg, Uni vers (NEURONTIN) 03-28 Oral, TID, it y of capsule 400 02:00: First dose [place] mg 00 on Fri Medical 01/26/20 at Branch 2000, Until Discontinu ed, Routine metoprolol 2019-03 2020- No 25mg 25 mg, Univ ers tartrate 03-2807 Oral, ity of (LOPRESSOR) 02:00: 05:08 Q12H, [place] tablet 25 00 :06 First dose Medi bharat mg on Fri Branch 01/26/20 at 2000, Until Discontinu ed, Routine Sliding 2019-03 Yes Subcutaneo Univ ers Scale -04 us, TID ity of Insulin - 23:00: MEALS+HS, [place] as Aspart 00 First dose Medical (NOVOLOG) + on Fri Branch [facility] 01/26/20 at Testing 1700, Until Discontinu ed, Routine omeprazole 2019-03 Yes 40mg 40 mg, Unive rs (PRILOSEC) 03-27 Oral, QPM, ity of capsule 40 23:00: First dose [place] mg 00 on Fri [facility] 01/26/20 at Branch 1700, Until Discontinu ed glipiZIDE 2019-03 Yes 5mg 5 mg, Univers (GLUCOTROL) 03-27 Oral, ity of tablet 5 mg 23:00: QAM+PM, [place] 00 First dose Medical on [facility] Branch 01/26/20 at 1700, Until Discontinu ed, Routine morphine IR 2019-03 2020- No 2745 7.5mg 7.5 mg, U nivers (MSIR) 03-2706 Oral, ity of tablet 7.5 22:30: 00:18 [id number], [place] mg 43 :48 Starting Medical [facility] 01/26/20 at 1630, Until [place] 01/27/20 at 1818, Routine, Pain (scale 7-10) bisacodyL 2019-03 Yes 5mg 5 mg, Univers (DULCOLAX) 03-27 Oral, ity of tablet 5 mg 22:30: QDAILYPRN, [place] 02 Starting Medical [facility] 01/26/20 at 1630, Until Discontinu ed, Routine, Constipati on heparin 2019-03- No 5000U 5,000 Univers 1000 03-2704 Units, IV ity of unit/mL 21:30: 21:36 Push, [place] injection 00 :00 ONCE, 1 Medical Soln 5,000 dose, Wed Bran ch Units 01/26/20 at 1530, Routine heparin 2019-03- No 18U/kg/ 18 Univer s 25,000 03-27 11-07 h Units/kg/h ity of Units/250 21:28: 01:29 r ?69.9 kg [place] mL 55 :44 (12.582 Medical (Premixed mL/hr, Branch Bag) in rounded to 0.45 % NS 12.58 mL/hr), IV Infusion, TITRATE, Parameters in Admin. Instr., Starting Fri01/26/20 at 1528
CA UTION - If LMWH given in ER, AVOID bolus and start next dose/drip 12 hrs after ER dosage.&nb sp; M ust program rate using programmab le infusion pump.&nbsp ; Nisha ck with the ordering provider first prior to any administra tion should the patient be on existing/a dditional anticoagul ant therapy. Rang e, Dosing and Testing: &nbs p;DO NOT ADJUST INITIAL BOLUS OR INITIAL INFUSION RATE.&nbsp ; _ &nb sp;FOR FOREST, [facility], AND [facility] ONLY &nbs p; - aPTT < 35: & nbsp;Bolus 5000 units, increase rate 300 units/hr&n bsp; - aPTT 35-44:&nbs p; Javed tita 3000 units, increase rate 200 units/hr&n bsp; - aPTT 45-54:&nbs p; In crease rate 100 units/hr&n bsp; - aPTT 55-85:&amp ;nbsp;&nbs p;NO CHANGE&nbs p; - aPTT 86-95:&nbs p; De crease rate 100 units/hr&a mp;nbsp; - aPTT 96-120:&nb sp; H old 30 minutes, decrease rate 150 units/hr&n bsp; - aPTT > 120: Hold 60 minutes, decrease rate 200 units/hr&n bsp; Check aPTT 6 hours after initiation , then Q6H after every change, aPTT Q12H once therapeuti c levels are reached.&n bsp; &nbs p; __ &n bsp;FOR [facility] ONLY - aPTT < 40: & nbsp;Bolus 5000 units, increase rate 300 units/hr&n bsp; - aPTT 40-49:&nbs p; Javed tita 3000 units, increase rate 200 units/hr&n bsp; - aPTT 50-59:&nbs p; In crease rate 100 units/hr&n bsp; - aPTT 60-85:&nbs p; NO CHANGE&nbs p; - aPTT 86-95:&nbs p; De crease rate 100 units/hr&n bsp; - aPTT 96-120:&nb sp; H old 30 minutes, decrease rate 150 units/hr&n bsp; - aPTT > 120: Hold 60 minutes, decrease rate 200 units/hr&n bsp; Check aPTT 6 hours after initiation , then Q6H after every change, aPTT Q12H once therapeuti c levels are reached.<b r> morpHINE 2019-03- No 4mg 4 mg, Slow Un martha injection 4 03-27 IV Push, ity of mg 19:30: 18:28 ONCE, 1 [place] 00 :00 dose, Wed Medical 01/26/20 at Branch 1330, STAT ciprofloxac 2019-03- No [id number] 750mg Take 1 Univers in HCl 750 0-01-3104 tablet by it y of mg tablet 00:00: 00:00 mouth [place] 00 :00 every 12 Medical (twelve) Branch hours for 12 days. rifAMPin 2019-03- No [id number] 300mg Take 1 [facility] 300 mg 001-31 42128 capsule by ity o f capsule 00:00: 00:00 mouth [place] 00 :00 every 12 Medical (twelve) Branch hours for 12 days. ciprofloxac 2019-03- No [id number] 750mg Take 1 Univers in HCl 750 001-26 10077 tablet by it y of mg tablet 00:00: 05:59 mouth [place] 00 :00 every 12 Medical (twelve) Branch hours for 12 days. rifAMPin 2019-03- No [id number] 300mg Take 1 [facility] 300 mg 001-26 06471 capsule by ity o f capsule 00:00: 05:59 mouth [place] 00 :00 every 12 Medical (twelve) Branch hours for 12 days. ciprofloxac 2019-03- No [id number] 750mg Take 1 [facility] in HCl 750 001-26 81517 tablet by it y of mg tablet 00:00: 05:59 mouth [place] 00 :00 every 12 Medical (twelve) Branch hours for 12 days. rifAMPin 2019-03- No [id number] 300mg Take 1 [facility] 300 mg 001-26 67233 capsule by ity o f capsule 00:00: 05:59 mouth [place] 00 :00 every 12 Medical (twelve) Branch hours for 12 days. ciprofloxac 2019-03- No [id number] 750mg Take 1 Univers in HCl 750 001-26 00726 tablet by it y of mg tablet 00:00: 05:59 mouth [place] 00 :00 every 12 Medical (twelve) Branch hours for 12 days. rifAMPin 2019-03- No [id number] 300mg Take 1 [facility] 300 mg 0-01-26 07966 capsule by ity o f capsule 00:00: 05:59 mouth [place] 00 :00 every 12 Medical (twelve) Branch hours for 12 days. ciprofloxac 2019- 2020- No [id number] 750mg Take 1 [facility] in HCl 750 01-26 tablet by it y of mg tablet 00:00: 05:59 mouth [place] 00 :00 every 12 Medical (twelve) Branch hours for 12 days. rifAMPin 2019- 2020- No [id number] 300mg Take 1 [facility] 300 mg 01-26 capsule by ity o f capsule 00:00: 05:59 mouth [place] 00 :00 every 12 Medical ([facility]) Branch hours for 12 days. clopidogreL 2020-0 Yes 75mg Take 75 mg Univers 75 mg 9-30 by mouth ity of tablet 00:27: daily. [address] clopidogreL 2020-0 Yes 75mg Take 75 mg Univers 75 mg 9-30 by mouth ity of tablet 00:27: daily. [address] clopidogreL 2020-0 Yes 75mg Take 75 mg Univers 75 mg 9-30 by mouth ity of tablet 00:27: daily. [address] clopidogreL 2020-0 Yes 75mg Take 75 mg Univers 75 mg 9-30 by mouth ity of tablet 00:27: daily. [address] clopidogreL 2020-0 Yes 75mg Take 75 mg Univers 75 mg 9-30 by mouth ity of tablet 00:27: daily. [address] clopidogreL 2020-0 Yes 75mg Take 75 mg Univers 75 mg 9-30 by mouth ity of tablet 00:27: daily. [address] clopidogreL 2020-0 Yes 75mg Take 75 mg Univers 75 mg 9-30 by mouth ity of tablet 00:27: daily. [address] clopidogreL 2020-0 Yes 75mg Take 75 mg Univers 75 mg 9-30 by mouth ity of tablet 00:27: daily. [address] clopidogreL 2020-0 Yes 75mg Take 75 mg Univers 75 mg 9-30 by mouth ity of tablet 00:27: daily. [address] clopidogreL 2020-0 Yes 75mg Take 75 mg Univers 75 mg 9-30 by mouth ity of tablet 00:27: daily. [address] clopidogreL 2020-0 Yes 75mg Take 75 mg Univers 75 mg 9-30 by mouth ity of tablet 00:27: daily. [address] clopidogreL 2020-0 Yes 75mg Take 75 mg Univers 75 mg 9-30 by mouth ity of tablet 00:27: daily. [address] Branch clopidogreL 2020-0 Yes 75mg Take 75 mg Univers 75 mg 9-30 by mouth ity of tablet 00:27: daily. [address] Branch clopidogreL 2020-0 Yes 75mg Take 75 mg Univers 75 mg 9-30 by mouth ity of tablet 00:27: daily. [address] clopidogreL 2020-0 Yes 75mg Take 75 mg Univers 75 mg 9-30 by mouth ity of tablet 00:27: daily. [address] Branch insulin NPH 2020-0 2020- No [id number] 7U inject 7 Univers 100 unit/mL 12-21 26144 Units ity o f injection 00:00: 00:00 under the [place] 00 :00 skin every Medical morning Branch for 30 days. insulin NPH 2020-0 Yes 7U 7 Units, Un martha (HUMULIN N) 12-20 Subcutaneo it y of injection 7 14:00: TERE lizarraga, [place] Units 00 First dose Medical (after Branch last modificati on) on Fri12/21/19 at 0900, Until Discontinu ed, Routine morphine ER 2020-0 Yes 30mg 30 mg, Univ ers (MS CONTIN) 12-20 Oral, ity of 12 hr 01:00: Q12H, [place] tablet 30 00 First dose Medi bharat mg (after Branch last modificati on) on Fri12/20/19 at 2000, Until Discontinu ed, Routine rifAMPin 2020-0 Yes [id number] 300mg Take 1 [facility] 300 mg 12-20 capsule by ity of capsule 00:00: mouth [place] 00 daily. Medical Branch ciprofloxac 2020-0 Yes [id number] 750mg Take 1 [facility] in HCl 750 12-20 tablet by ity of mg tablet 00:00: mouth [place] 00 every 12 Medical (twelve) Branch hours. rifAMPin 2020-0 Yes [id number] 300mg Take 1 [facility] 300 mg 12-20 90339 capsule by ity of capsule 00:00: mouth [place] 00 daily. Medical Branch ciprofloxac 2020-0 Yes [id number] 750mg Take 1 [facility] in HCl 750 12-20 85760 tablet by ity of mg tablet 00:00: mouth [place] 00 every 12 Medical (twelve) Branch hours. rifAMPin 2020-0 Yes [id number] 300mg Take 1 [facility] 300 mg 9- 75430 capsule by ity of capsule 00:00: mouth [place] 00 daily. Medical Branch ciprofloxac 2020-0 Yes [id number] 750mg Take 1 [facility] in HCl 750 9-29 34547 tablet by ity of mg tablet 00:00: mouth [place] 00 every 12 Medical (twelve) Branch hours. rifAMPin 2020-0 Yes [id number] 300mg Take 1 [facility] 300 mg 9- 35447 capsule by ity of capsule 00:00: mouth [place] 00 daily. Medical Branch ciprofloxac 2020-0 Yes [id number] 750mg Take 1 [facility] in HCl 750 9- 79983 tablet by ity of mg tablet 00:00: mouth [place] 00 every 12 Medical (twelve) Branch hours. rifAMPin 2020-0 Yes [id number] 300mg Take 1 [facility] 300 mg 9- 24450 capsule by ity of capsule 00:00: mouth [place] 00 daily. Medical Branch ciprofloxac 2020-0 Yes [id number] 750mg Take 1 [facility] in HCl 750 9- 59010 tablet by ity of mg tablet 00:00: mouth [place] 00 every 12 Medical (twelve) Branch hours. rifAMPin 2020-0 Yes [id number] 300mg Take 1 [facility] 300 mg 9- 88483 capsule by ity of capsule 00:00: mouth [place] 00 daily. Medical Branch ciprofloxac 2020-0 Yes [id number] 750mg Take 1 [facility] in HCl 750 9- 24515 tablet by ity of mg tablet 00:00: mouth [place] 00 every 12 Medical (twelve) Branch hours. rifAMPin 2020-0 Yes [id number] 300mg Take 1 [facility] 300 mg 9- 40859 capsule by ity of capsule 00:00: mouth [place] 00 daily. Medical Branch ciprofloxac 2020-0 Yes [id number] 750mg Take 1 [facility] in HCl 750 9-29 82084 tablet by ity of mg tablet 00:00: mouth [place] 00 every 12 Medical (twelve) Branch hours. rifAMPin 2020-0 Yes [id number] 300mg Take 1 [facility] 300 mg 9-29 55693 capsule by ity of capsule 00:00: mouth [place] 00 daily. Medical Branch ciprofloxac 2020-0 Yes [id number] 750mg Take 1 [facility] in HCl 750 9- 53358 tablet by ity of mg tablet 00:00: mouth [place] 00 every 12 Medical (twelve) Branch hours. rifAMPin 2020-0 Yes [id number] 300mg Take 1 [facility] 300 mg 9- 84498 capsule by ity of capsule 00:00: mouth [place] 00 daily. Medical Branch ciprofloxac 2020-0 Yes [id number] 750mg Take 1 [facility] in HCl 750 9- 29247 tablet by ity of mg tablet 00:00: mouth [place] 00 every 12 Medical (twelve) Branch hours. rifAMPin 2020-0 Yes [id number] 300mg Take 1 [facility] 300 mg 9 80437 capsule by ity of capsule 00:00: mouth [place] 00 daily. Medical Branch ciprofloxac 2020-0 Yes [id number] 750mg Take 1 [facility] in HCl 750 9- 53794 tablet by ity of mg tablet 00:00: mouth [place] 00 every 12 Medical (twelve) Branch hours. rifAMPin 2020-0 Yes [id number] 300mg Take 1 [facility] 300 mg 12-20 07836 capsule by ity of capsule 00:00: mouth [place] 00 daily. Medical Branch ciprofloxac 2020-0 Yes [id number] 750mg Take 1 [facility] in HCl 750 - 85453 tablet by ity of mg tablet 00:00: mouth [place] 00 every 12 Medical (twelve) Branch hours. rifAMPin 2020-0 2020- No [id number] 300mg Take 1 [facility] 300 mg -01-13 71722 capsule by ity o f capsule 00:00: 00:00 mouth [place] 00 :00 daily. Medical Branch ciprofloxac 2020-0 2020- No [id number] 750mg Take 1 [facility] in HCl 750 -19 01- 90319 tablet by it y of mg tablet 00:00: 00:00 mouth [place] 00 :00 every 12 Medical (twelve) Branch hours. rifAMPin 2020-0 2020- No [id number] 300mg Take 1 [facility] 300 mg 9-19 01- 99579 capsule by ity o f capsule 00:00: 00:00 mouth [place] 00 :00 daily. Medical Branch ciprofloxac 2020-0 2020- No [id number] 750mg Take 1 [facility] in HCl 750 9-29 10-23 78882 tablet by it y of mg tablet 00:00: 00:00 mouth [place] 00 :00 every 12 Medical (twelve) Branch hours. insulin NPH 2019-0 2019- No [id number] 5U inject 5 [facility] 100 unit/mL 12-20 Units ity of injection 00:00: 00:00 under the [place] 00 :00 skin every Medical evening Branch for 30 days. insulin NPH 2020-0 Yes 5U 5 Units, Un martha (HUMULIN N) 12-19 Subcutaneo it y of injection 5 22:00: [place], QPM, [place] Units 00 First dose Medical (after Branch last modificati on) on [facility] 12/20/19 at 1700, Until Discontinu ed, Routine morpHINE 2019-0 2019- No 2mg 2 mg, Slow Un martha injection 2 12-19 IV Push, ity of mg 21:15: 20:56 ONCE, 1 [place] 00 :00 dose, [facility] 12/20/19 at Branch 1615, Routine morpHINE 2020-0 Yes 4mg 4 mg, Slow Uni vers injection 4 12-19 IV Push, ity of mg 20:03: Q4HPRN, [place] 21 Starting Medical [facility] 12/20/19 at 1503, Until Discontinu ed, Routine, Pain (scale 7-10) insulin NPH 2019-0 2019- No 5U 5 Units, U nivers (HUMULIN N) 12-19 Subcutaneo i ty of injection 5 14:00: 20:39 us, QAM, [place] Units 00 :40 First dose Medical on [facility] 12/20/19 at 0900, Until Discontinu ed, Routine gabapentin 2020-0 Yes 400mg 400 mg, Uni vers (NEURONTIN) 12-19 Oral, BID, it y of capsule 400 01:00: First dose [place] mg 00 (after Medical last Branch modificati on) on Fri12/19/19 at 2000, Until Discontinu ed, Routine acetaminoph 2019-0 2020- No [id number] 650mg Take 2 Univers en 325 mg 12-19 tablets by it y of tablet 00:00: 04:59 mouth [place] 00 :00 every 6 Medical (six) Branch hours. acetaminoph 2019-2020- No [id number] 650mg Take 2 Univers en 325 mg 12-19 29917 tablets by it y of tablet 00:00: 04:59 mouth [place] 00 :00 every 6 Medical (six) Branch hours. acetaminoph 2020- No [id number] 650mg Take 2 Univers en 325 mg 12-19 25204 tablets by it y of tablet 00:00: 04:59 mouth [place] 00 :00 every 6 Medical (six) Branch hours. acetaminoph 2020- No [id number] 650mg Take 2 Univers en 325 mg 12-19 84897 tablets by it y of tablet 00:00: 04:59 mouth [place] 00 :00 every 6 Medical (six) Branch hours. acetaminoph 2020- No [id number] 650mg Take 2 Univers en 325 mg 12-19 23034 tablets by it y of tablet 00:00: 04:59 mouth [place] 00 :00 every 6 Medical (six) Branch hours. acetaminoph 2020- No [id number] 650mg Take 2 Univers en 325 mg 12-19 22630 tablets by it y of tablet 00:00: 04:59 mouth [place] 00 :00 every 6 Medical (six) Branch hours. acetaminoph 2020- No [id number] 650mg Take 2 Univers en 325 mg 12-19 45755 tablets by it y of tablet 00:00: 04:59 mouth [place] 00 :00 every 6 Medical (six) Branch hours. acetaminoph 2020- No [id number] 650mg Take 2 Univers en 325 mg 12-19 48460 tablets by it y of tablet 00:00: 04:59 mouth [place] 00 :00 every 6 Medical (six) Branch hours. acetaminoph 2020- No [id number] 650mg Take 2 Univers en 325 mg 12-19 34692 tablets by it y of tablet 00:00: 04:59 mouth [place] 00 :00 every 6 Medical (six) Branch hours. acetaminoph 2020- No [id number] 650mg Take 2 Univers en 325 mg 12-19 85480 tablets by it y of tablet 00:00: 04:59 mouth [place] 00 :00 every 6 Medical (six) Branch hours. acetaminoph 2020- No [id number] 650mg Take 2 Univers en 325 mg 12-19 93190 tablets by it y of tablet 00:00: 04:59 mouth [place] 00 :00 every 6 Medical (six) Branch hours. acetaminoph 2020- No [id number] 650mg Take 2 Univers en 325 mg 12-19 87393 tablets by it y of tablet 00:00: 04:59 mouth [place] 00 :00 every 6 Medical (six) Branch hours. acetaminoph 2020- No [id number] 650mg Take 2 Univers en 325 mg 12-19 29460 tablets by it y of tablet 00:00: 04:59 mouth [place] 00 :00 every 6 Medical (six) Branch hours. acetaminoph 2020- No [id number] 650mg Take 2 Univers en 325 mg 12-19 11046 tablets by it y of tablet 00:00: 04:59 mouth [place] 00 :00 every 6 Medical (six) Branch hours. acetaminoph 2020- No [id number] 650mg Take 2 Univers en 325 mg 12-19 96668 tablets by it y of tablet 00:00: 04:59 mouth [place] 00 :00 every 6 Medical (six) Branch hours. acetaminoph 2020- No [id number] 650mg Take 2 Univers en 325 mg 12-19 06852 tablets by it y of tablet 00:00: 04:59 mouth [place] 00 :00 every 6 Medical (six) Branch hours. acetaminoph 2020- No [id number] 650mg Take 2 Univers en 325 mg 12-19 25611 tablets by it y of tablet 00:00: 04:59 mouth [place] 00 :00 every 6 Medical (six) Branch hours. acetaminoph 2020- No [id number] 650mg Take 2 Univers en 325 mg 12-19 38393 tablets by it y of tablet 00:00: 04:59 mouth [place] 00 :00 every 6 Medical (six) Branch hours. acetaminoph 2020- No [id number] 650mg Take 2 Univers en 325 mg 12-19 56821 tablets by it y of tablet 00:00: 04:59 mouth [place] 00 :00 every 6 Medical (six) Branch hours. acetaminoph 2020- No [id number] 650mg Take 2 Univers en 325 mg 12-19 51191 tablets by it y of tablet 00:00: 04:59 mouth [place] 00 :00 every 6 Medical (six) Branch hours. acetaminoph 2020- No [id number] 650mg Take 2 Univers en 325 mg 12-19 62322 tablets by it y of tablet 00:00: 04:59 mouth [place] 00 :00 every 6 Medical (six) Branch hours. acetaminoph 2020- No [id number] 650mg Take 2 Univers en 325 mg 12-19 02307 tablets by it y of tablet 00:00: 04:59 mouth [place] 00 :00 every 6 Medical (six) Branch hours. acetaminoph 2020- No [id number] 650mg Take 2 Univers en 325 mg 12-19 75245 tablets by it y of tablet 00:00: 04:59 mouth [place] 00 :00 every 6 Medical (six) Branch hours. acetaminoph 2020- No [id number] 650mg Take 2 Univers en 325 mg 12-19 99856 tablets by it y of tablet 00:00: 04:59 mouth [place] 00 :00 every 6 Medical (six) Branch hours. acetaminoph 2020- No [id number] 650mg Take 2 Univers en 325 mg 12-19 52611 tablets by it y of tablet 00:00: 04:59 mouth [place] 00 :00 every 6 Medical (six) Branch hours. acetaminoph 2020- No [id number] 650mg Take 2 Univers en 325 mg 12-19 29877 tablets by it y of tablet 00:00: 04:59 mouth [place] 00 :00 every 6 Medical (six) Branch hours. acetaminoph 2020- No [id number] 650mg Take 2 Univers en 325 mg 12-19 46397 tablets by it y of tablet 00:00: 04:59 mouth [place] 00 :00 every 6 Medical (six) Branch hours. acetaminoph 2020- No [id number] 650mg Take 2 Univers en 325 mg 12-19 74805 tablets by it y of tablet 00:00: 04:59 mouth [place] 00 :00 every 6 Medical (six) Branch hours. acetaminoph 2020- No [id number] 650mg Take 2 Univers en 325 mg 12-19 75398 tablets by it y of tablet 00:00: 04:59 mouth [place] 00 :00 every 6 Medical (six) Branch hours. acetaminoph 2020- No [id number] 650mg Take 2 [facility] en 325 mg 12-19 18443 tablets by it y of tablet 00:00: 04:59 mouth [place] 00 :00 every 6 Medical (six) Branch hours. acetaminoph 2020- No [id number] 650mg Take 2 [facility] en 325 mg 12-19 93801 tablets by it y of tablet 00:00: 04:59 mouth [place] 00 :00 every 6 Medical (six) Branch hours. acetaminoph 2020- No [id number] 650mg Take 2 [facility] en 325 mg 12-19 [id number] tablets by it y of tablet 00:00: 04:59 mouth [place] 00 :00 every 6 Medical (six) Branch hours. acetaminoph 2020- No [id number] 650mg Take 2 [facility] en 325 mg 12-19 24619 tablets by it y of tablet 00:00: 04:59 mouth [place] 00 :00 every 6 Medical (six) Branch hours. acetaminoph 2020- No [id number] 650mg Take 2 [facility] en 325 mg 12-19 82228 tablets by it y of tablet 00:00: 04:59 mouth [place] 00 :00 every 6 Medical (six) Branch hours. acetaminoph 2020- No [id number] 650mg Take 2 [facility] en 325 mg 12-19 [id number] tablets by it y of tablet 00:00: 04:59 mouth [place] 00 :00 every 6 Medical (six) Branch hours. acetaminoph 2020- No [id number] 650mg Take 2 [facility] en 325 mg 12-19 14922 tablets by it y of tablet 00:00: 04:59 mouth [place] 00 :00 every 6 Medical (six) Branch hours. acetaminoph 2020- No [id number] 650mg Take 2 Univers en 325 mg 12-19- 44748 tablets by it y of tablet 00:00: 04:59 mouth [place] 00 :00 every 6 Medical (six) Branch hours. acetaminoph 2020- No [id number] 650mg Take 2 Univers en 325 mg 12-19 70319 tablets by it y of tablet 00:00: 04:59 mouth [place] 00 :00 every 6 Medical (six) Branch hours. acetaminoph 2020- No [id number] 650mg Take 2 [facility] en 325 mg 12-19 78594 tablets by it y of tablet 00:00: 04:59 mouth [place] 00 :00 every 6 Medical (six) Branch hours. acetaminoph 2020- No [id number] 650mg Take 2 [facility] en 325 mg 12-19 94434 tablets by it y of tablet 00:00: 04:59 mouth [place] 00 :00 every 6 Medical (six) Branch hours. acetaminoph 2020- No [id number] 650mg Take 2 [facility] en 325 mg 12-19 81715 tablets by it y of tablet 00:00: 04:59 mouth [place] 00 :00 every 6 Medical (six) Branch hours. sennosides 2020- No [id number] 8.6mg Take 1 [facility] 8.6 mg 9-28 10-13 tablet by ity of tablet 00:00: 04:59 mouth 2 [place] 00 :00 (two) Medical times Branch daily for 14 days. sennosides 2019-0 2020- No [id number] 8.6mg Take 1 [facility] 8.6 mg 9-28 10-13 tablet by ity of tablet 00:00: 04:59 mouth 2 [place] 00 :00 (two) Medical times Branch daily for 14 days. sennosides 2020-0 2020- No [id number] 8.6mg Take 1 Univers 8.6 mg 9-28 10-13 tablet by ity of tablet 00:00: 04:59 mouth 2 [place] 00 :00 (two) Medical times Branch daily for 14 days. sennosides 2020-0 2020- No [id number] 8.6mg Take 1 Univers 8.6 mg 9-28 10-13 tablet by ity of tablet 00:00: 04:59 mouth 2 [place] 00 :00 (two) Medical times Branch daily for 14 days. sennosides 2019- 2020- No [id number] 8.6mg Take 1 Univers 8.6 mg 9-28 10-13 tablet by ity of tablet 00:00: 04:59 mouth 2 [place] 00 :00 (two) Medical times Branch daily for 14 days. sennosides 2019- 2020- No [id number] 8.6mg Take 1 Univers 8.6 mg 9-28 10-13 tablet by ity of tablet 00:00: 04:59 mouth 2 [place] 00 :00 (two) Medical times Branch daily for 14 days. sennosides 2019-2019- No [id number] 8.6mg Take 1 [facility] 8.6 mg 9-28 10-13 tablet by ity of tablet 00:00: 04:59 mouth 2 [place] 00 :00 (two) Medical times Branch daily for 14 days. sennosides 2019- 2020- No [id number] 8.6mg Take 1 [facility] 8.6 mg 9-28 10-13 tablet by ity of tablet 00:00: 04:59 mouth 2 [place] 00 :00 (two) Medical times Branch daily for 14 days. ciprofloxac 2019- 2020- No [id number] 750mg Take 1 Univers in HCl 750 12-19 tablet by it y of mg tablet 00:00: 00:00 mouth [place] 00 :00 every 12 Medical (twelve) Branch hours for 14 days. rifAMPin 2020- No [id number] 300mg Take 1 [facility] 300 mg 12-1904 capsule by ity o f capsule 00:00: 00:00 mouth [place] 00 :00 daily for Medical 14 days. Branch acetaminoph 0 Yes 650mg 650 mg, Un martha en 12-18 Oral, Q6H, ity of (TYLENOL) 23:00: First dose [place] tablet 650 00 (after Medical mg last Branch modificati on) on 12/19/19 at 1800, Until Discontinu ed, Routine morpHINE 2019- 2020- No 2mg 2 mg, Slow [facility] mar[facility] injection 2 12-18 IV Push, ity of mg 22:32: 20:03 Q4HPRN, [place] 22 :34 Starting Medical Sun Branch 12/19/19 at 1732, Until 12/20/19 at 1503, Routine, Pain (scale 7-10) Polyethylen 2020-0 Yes 17g 17 g, Unive rs e Glycol - Oral, TID, ity o f 3350 13:00: First dose [place] (MIRALAX) 00 (after Medical powder 17 g last Branch modificati on) on 12/19/19 at 0800, Until Discontinu ed, Routine morphine ER 2020-0 2020- No 15mg 15 mg, Uni vers (MS CONTIN) 12-18 Oral, ity of 12 hr 01:00: 20:03 Q12H, [place] tablet 15 00 :11 First dose Medi bharat mg on [facility] Branch 12/18/19 at 2000, Until Discontinu ed, Routine morphine IR 2020-0 Yes 2745 7.5mg Take 0.5 U nivers 15 mg 9-27 tablets by ity of tablet 00:00: mouth [place] 00 every 12 Medical (twelve) Branch hours as needed for Pain (scale 7-10) for up to 30 doses. Indication s: chronic pain morphine IR 2020-0 Yes 2745 7.5mg Take 0.5 U nivers 15 mg 9-27 tablets by ity of tablet 00:00: mouth [place] 00 every 12 Medical (twelve) Branch hours as needed for Pain (scale 7-10) for up to 30 doses. Indication s: chronic pain morphine IR 2020-0 Yes 2745 7.5mg Take 0.5 U nivers 15 mg 9-27 tablets by ity of tablet 00:00: mouth [place] 00 every 12 Medical (twelve) Branch hours as needed for Pain (scale 7-10) for up to 30 doses. Indication s: chronic pain morphine IR 2020-0 Yes 2745 7.5mg Take 0.5 U nivers 15 mg 9-27 tablets by ity of tablet 00:00: mouth [place] 00 every 12 Medical (twelve) Branch hours as needed for Pain (scale 7-10) for up to 30 doses. Indication s: chronic pain morphine IR 2020-0 Yes 2745 7.5mg Take 0.5 U nivers 15 mg 9-27 tablets by ity of tablet 00:00: mouth [place] 00 every 12 Medical (twelve) Branch hours as needed for Pain (scale 7-10) for up to 30 doses. Indication s: chronic pain morphine IR 2020-0 Yes 2745 7.5mg Take 0.5 U nivers 15 mg 9-27 tablets by ity of tablet 00:00: mouth [place] 00 every 12 Medical (twelve) Branch hours as needed for Pain (scale 7-10) for up to 30 doses. Indication s: chronic pain morphine IR 2020-0 Yes 2745 7.5mg Take 0.5 U nivers 15 mg 9-27 tablets by ity of tablet 00:00: mouth [place] 00 every 12 Medical (twelve) Branch hours as needed for Pain (scale 7-10) for up to 30 doses. Indication s: chronic pain morphine IR 2020-0 Yes 2745 7.5mg Take 0.5 U nivers 15 mg 9-27 tablets by ity of tablet 00:00: mouth [place] 00 every 12 Medical (twelve) Branch hours as needed for Pain (scale 7-10) for up to 30 doses. Indication s: chronic pain morphine IR 2020-0 Yes 2745 7.5mg Take 0.5 U nivers 15 mg 9-27 tablets by ity of tablet 00:00: mouth [place] 00 every 12 Medical (twelve) Branch hours as needed for Pain (scale 7-10) for up to 30 doses. Indication s: chronic pain morphine IR 2020-0 Yes 2745 7.5mg Take 0.5 U nivers 15 mg 9-27 tablets by ity of tablet 00:00: mouth [place] 00 every 12 Medical (twelve) Branch hours as needed for Pain (scale 7-10) for up to 30 doses. Indication s: chronic pain morphine IR 2020-0 Yes 2745 7.5mg Take 0.5 U nivers 15 mg 9-27 tablets by ity of tablet 00:00: mouth [place] 00 every 12 Medical (twelve) Branch hours as needed for Pain (scale 7-10) for up to 30 doses. Indication s: chronic pain morphine IR 2020-0 Yes 2745 7.5mg Take 0.5 U nivers 15 mg 9-27 tablets by ity of tablet 00:00: mouth [place] 00 every 12 Medical (twelve) Branch hours as needed for Pain (scale 7-10) for up to 30 doses. Indication s: chronic pain morphine IR 2020-0 Yes 2745 7.5mg Take 0.5 U nivers 15 mg 9-27 tablets by ity of tablet 00:00: mouth [place] 00 every 12 Medical (twelve) Branch hours as needed for Pain (scale 7-10) for up to 30 doses. Indication s: chronic pain morphine IR 2020-0 Yes 2745 7.5mg Take 0.5 U nivers 15 mg 9-27 tablets by ity of tablet 00:00: mouth [place] 00 every 12 Medical (twelve) Branch hours as needed for Pain (scale 7-10) for up to 30 doses. Indication s: chronic pain morphine IR 2020-0 Yes 2745 7.5mg Take 0.5 U nivers 15 mg 9-27 tablets by ity of tablet 00:00: mouth [place] 00 every 12 Medical (twelve) Branch hours as needed for Pain (scale 7-10) for up to 30 doses. Indication s: chronic pain morphine IR 2020-0 Yes 2745 7.5mg Take 0.5 U nivers 15 mg 9-27 tablets by ity of tablet 00:00: mouth [place] 00 every 12 Medical (twelve) Branch hours as needed for Pain (scale 7-10) for up to 30 doses. Indication s: chronic pain morphine IR 2020-0 Yes 2745 7.5mg Take 0.5 U nivers 15 mg 9-27 tablets by ity of tablet 00:00: mouth [place] 00 every 12 Medical (twelve) Branch hours as needed for Pain (scale 7-10) for up to 30 doses. Indication s: chronic pain morphine IR 2020-0 Yes 2745 7.5mg Take 0.5 U nivers 15 mg 9-27 tablets by ity of tablet 00:00: mouth [place] 00 every 12 Medical (twelve) Branch hours as needed for Pain (scale 7-10) for up to 30 doses. Indication s: chronic pain morphine IR 2020-0 Yes 2745 7.5mg Take 0.5 U nivers 15 mg 9-27 tablets by ity of tablet 00:00: mouth [place] 00 every 12 Medical (twelve) Branch hours as needed for Pain (scale 7-10) for up to 30 doses. Indication s: chronic pain morphine IR 2020-0 Yes 2745 7.5mg Take 0.5 U nivers 15 mg 9-27 tablets by ity of tablet 00:00: mouth [place] 00 every 12 Medical (twelve) Branch hours as needed for Pain (scale 7-10) for up to 30 doses. Indication s: chronic pain morphine IR 2020-0 Yes 2745 7.5mg Take 0.5 U nivers 15 mg 9-27 tablets by ity of tablet 00:00: mouth [place] 00 every 12 Medical (twelve) Branch hours as needed for Pain (scale 7-10) for up to 30 doses. Indication s: chronic pain morphine IR 2020-0 Yes 2745 7.5mg Take 0.5 U nivers 15 mg 9-27 tablets by ity of tablet 00:00: mouth [place] 00 every 12 Medical (twelve) Branch hours as needed for Pain (scale 7-10) for up to 30 doses. Indication s: chronic pain morphine IR 2020-0 Yes 2745 7.5mg Take 0.5 U nivers 15 mg 9-27 tablets by ity of tablet 00:00: mouth [place] 00 every 12 Medical (twelve) Branch hours as needed for Pain (scale 7-10) for up to 30 doses. Indication s: chronic pain morphine IR 2020-0 Yes 2745 7.5mg Take 0.5 U nivers 15 mg 9-27 tablets by ity of tablet 00:00: mouth [place] 00 every 12 Medical (twelve) Branch hours as needed for Pain (scale 7-10) for up to 30 doses. Indication s: chronic pain morphine IR 2020-0 Yes 2745 7.5mg Take 0.5 U nivers 15 mg 9-27 tablets by ity of tablet 00:00: mouth [place] 00 every 12 Medical (twelve) Branch hours as needed for Pain (scale 7-10) for up to 30 doses. Indication s: chronic pain morphine IR 2020-0 Yes 2745 7.5mg Take 0.5 U nivers 15 mg 9-27 tablets by ity of tablet 00:00: mouth [place] 00 every 12 Medical (twelve) Branch hours as needed for Pain (scale 7-10) for up to 30 doses. Indication s: chronic pain morphine IR 2020-0 Yes 2745 7.5mg Take 0.5 U nivers 15 mg 9-27 tablets by ity of tablet 00:00: mouth [place] 00 every 12 Medical (twelve) Branch hours as needed for Pain (scale 7-10) for up to 30 doses. Indication s: chronic pain morphine IR 2020-0 Yes 2745 7.5mg Take 0.5 U nivers 15 mg 9-27 tablets by ity of tablet 00:00: mouth [place] 00 every 12 Medical (twelve) Branch hours as needed for Pain (scale 7-10) for up to 30 doses. Indication s: chronic pain morphine IR 2020-0 Yes 2745 7.5mg Take 0.5 U nivers 15 mg 9-27 tablets by ity of tablet 00:00: mouth [place] 00 every 12 Medical (twelve) Branch hours as needed for Pain (scale 7-10) for up to 30 doses. Indication s: chronic pain morphine IR 2020-0 Yes 2745 7.5mg Take 0.5 U nivers 15 mg 9-27 tablets by ity of tablet 00:00: mouth [place] 00 every 12 Medical (twelve) Branch hours as needed for Pain (scale 7-10) for up to 30 doses. Indication s: chronic pain morphine IR 2020-0 Yes 2745 7.5mg Take 0.5 U nivers 15 mg 9-27 tablets by ity of tablet 00:00: mouth [place] 00 every 12 Medical (twelve) Branch hours as needed for Pain (scale 7-10) for up to 30 doses. Indication s: chronic pain morphine IR 2020-0 Yes 2745 7.5mg Take 0.5 U nivers 15 mg 9-27 tablets by ity of tablet 00:00: mouth [place] 00 every 12 Medical (twelve) Branch hours as needed for Pain (scale 7-10) for up to 30 doses. Indication s: chronic pain morphine IR 2020-0 Yes 2745 7.5mg Take 0.5 U nivers 15 mg 9-27 tablets by ity of tablet 00:00: mouth [place] 00 every 12 Medical (twelve) Branch hours as needed for Pain (scale 7-10) for up to 30 doses. Indication s: chronic pain morphine IR 2020-0 Yes 2745 7.5mg Take 0.5 U nivers 15 mg 9-27 tablets by ity of tablet 00:00: mouth [place] 00 every 12 Medical (twelve) Branch hours as needed for Pain (scale 7-10) for up to 30 doses. Indication s: chronic pain morphine IR 2020-0 Yes 2745 7.5mg Take 0.5 U nivers 15 mg 9-27 tablets by ity of tablet 00:00: mouth [place] 00 every 12 Medical (twelve) Branch hours as needed for Pain (scale 7-10) for up to 30 doses. Indication s: chronic pain morphine IR 2020-0 Yes 2745 7.5mg Take 0.5 U nivers 15 mg 9-27 tablets by ity of tablet 00:00: mouth [place] 00 every 12 Medical (twelve) Branch hours as needed for Pain (scale 7-10) for up to 30 doses. Indication s: chronic pain morphine IR 2020-0 Yes 2745 7.5mg Take 0.5 U nivers 15 mg 9-27 tablets by ity of tablet 00:00: mouth [place] 00 every 12 Medical (twelve) Branch hours as needed for Pain (scale 7-10) for up to 30 doses. Indication s: chronic pain morphine IR 2020-0 Yes 2745 7.5mg Take 0.5 U nivers 15 mg 9-27 tablets by ity of tablet 00:00: mouth [place] 00 every 12 Medical (twelve) Branch hours as needed for Pain (scale 7-10) for up to 30 doses. Indication s: chronic pain morphine IR 2020-0 Yes 2745 7.5mg Take 0.5 U nivers 15 mg 9-27 tablets by ity of tablet 00:00: mouth [place] 00 every 12 Medical (twelve) Branch hours as needed for Pain (scale 7-10) for up to 30 doses. Indication s: chronic pain morphine IR 2020-0 Yes 2745 7.5mg Take 0.5 U nivers 15 mg 9-27 tablets by ity of tablet 00:00: mouth [place] 00 every 12 Medical (twelve) Branch hours as needed for Pain (scale 7-10) for up to 30 doses. Indication s: chronic pain morphine IR 2020-0 Yes 2745 7.5mg Take 0.5 U nivers 15 mg 9-27 tablets by ity of tablet 00:00: mouth [place] 00 every 12 Medical (twelve) Branch hours as needed for Pain (scale 7-10) for up to 30 doses. Indication s: chronic pain morphine ER 2020-0 2020- No 2745 15mg Take 1 Uni vers 15 mg 12 hr 9-27 10-05 tablet by it y of tablet 00:00: 04:59 mouth [place] 00 :00 every 12 Medical (twelve) Branch hours for 7 days. Indication s: chronic pain morphine ER 2020-0 2020- No 2745 15mg Take 1 Uni vers 15 mg 12 hr 9-27 10-05 tablet by it y of tablet 00:00: 04:59 mouth [place] 00 :00 every 12 Medical (twelve) Branch hours for 7 days. Indication s: chronic pain morphine ER 2020-0 2020- No 2745 15mg Take 1 Uni vers 15 mg 12 hr 12-18 10-05 tablet by it y of tablet 00:00: 04:59 mouth [place] 00 :00 every 12 Medical (twelve) Branch hours for 7 days. Indication s: chronic pain morphine ER 2020-0 2020- No 2745 15mg Take 1 Uni vers 15 mg 12 hr 12-18 10-05 tablet by it y of tablet 00:00: 04:59 mouth [place] 00 :00 every 12 Medical (twelve) Branch hours for 7 days. Indication s: chronic pain morphine ER 2020-0 2020- No 2745 15mg Take 1 Uni vers 15 mg 12 hr 12-18 10-05 tablet by it y of tablet 00:00: 04:59 mouth [place] 00 :00 every 12 Medical (twelve) Branch hours for 7 days. Indication s: chronic pain morphine ER 2020-0 2020- No 2745 15mg Take 1 Uni vers 15 mg 12 hr 12-18 10-05 tablet by it y of tablet 00:00: 04:59 mouth [place] 00 :00 every 12 Medical (twelve) Branch hours for 7 days. Indication s: chronic pain morphine ER 2020-0 2020- No 2745 15mg Take 1 Uni vers 15 mg 12 hr 12-18 10-05 tablet by it y of tablet 00:00: 04:59 mouth [place] 00 :00 every 12 Medical (twelve) Branch hours for 7 days. Indication s: chronic pain morpHINE 2019-0 2020- No 2mg 2 mg, Slow Un martha injection 2 12-17 IV Push, ity of mg 18:30: 22:33 Q4HPRN, [place] 00 :01 Starting Medical Sat Branch 12/18/19 at 1330, Until 12/19/19 at 1733, Routine, Pain (scale 7-10) Sliding 2019-0 Yes Subcutaneo Univ ers Scale - us, TID ity of Insulin - 17:00: MEALS+HS, [place] Aspart 00 First dose Medical (NOVOLOG) + (after Branch Fsbg last Testing modificati on) on [place] 12/16/19 at 1200, Until Discontinu ed, Routine rifAMPin 2019-0 Yes 300mg 300 mg, Unive rs (RIFADIN) 12-15 Oral, ity of capsule 300 14:00: DAILY, [place] mg 00 First dose Medical on [place] Branch 12/16/19 at 0900, Until Discontinu ed, ONESIMO
Re ason for Anti-Infec tive: Documented Infection< br>Documen sapna Infection Site: Wound
D uration of Therapy: 7 days ciprofloxac 2020-0 Yes 750mg 750 mg, Un martha in HCl 12-15 Oral, ity of (CIPRO) 12:15: Q12HA2, [place] tablet 750 00 First dose Med ical mg on [place] Branch 12/16/19 at 0715, Until Discontinu ed, ONESIMO
Re ason for Anti-Infec tive: Documented Infection< br>Documen sapna Infection Site: Wound
D uration of Therapy: 7 days ondansetron 2019-0 2020- No 4mg 4 mg, Univ ers (ZOFRAN-ODT 12-15 Oral, ity of ) 01:00: 12:13 Q12H, [place] disintegrat 00 :36 First dose Me dical ing tablet on Fri Branch 4 mg 12/15/19 at 2000, Until Discontinu ed, Routine thrombin 2020-0 Yes PRN, Univers (recombinan 12-14 Starting ity of t) 22:08: Fri [place] (RECOTHROM) 00 12/15/19 at Or dical topical 1708, Branch solution Until Discontinu ed, Routine, Intra-op papaverine 2020-0 Yes PRN, Univers injection 12-14 Starting ity of 18:43: Fri [place] 00 12/15/19 at Medical 1343, Branch Until Discontinu ed, Routine, Intra-op heparin 2020-0 Yes PRN, Univers 1,000 12-14 Starting ity of unit/mL 18:42: Fri [place] injection 12/15/19 at [facility] 1342, Branch Until Discontinu ed, Routine, Intra-op FENTanyl PF 2020-0 2020- No 50ug 50 mcg, Un martha (SUBLIMAZE 12-14 Slow IV ity o f (PF)) 06:00: 05:10 Push, [place] injection 00 :00 ONCE, 1 Medical 50 mcg dose, [facility] Branch 12/15/19 at 0100, Routine HYDROcodone 2020-0 2020- No 1{tbl} 1 tablet, Univers -acetaminop 12-13-27 Oral, Q8H, i ty of hen (NORCO) 03:00: 17:08 First dose [place] 10-325 mg 00 :55 on Mon Medical tablet 1 12/13/19 at Bran h tablet 2200, Until Discontinu ed, Routine HYDROcodone 2020-0 2020- No 1{tbl} 1 tablet, Univers -acetaminop 12-11- Oral, Q8H, i ty of hen (NORCO 19:00: 21:06 First dose [place] 5) 5-325 mg 00 :07 (after Medica l tablet 1 last Branch tablet modificati on) on Fri12/12/19 at 1400, Until Discontinu ed, Routine heparin 2020-0 Yes 5000U 5,000 Univers (porcine) -20 Units, ity of injection 13:00: Subcutaneo [place] 5,000 Units 00 us, Q12H, Med ical First dose Branch (after last modificati on) on Fri12/12/19 at 0800, Until Discontinu ed, Routine sennosides 2020-0 Yes 8.6mg 8.6 mg, Uni vers (SENOKOT) 19 Oral, BID, ity of tablet 8.6 01:00: First dose [place] mg 00 (after Medical last Branch modificati on) on Fri12/10/19 at 2000, Until Discontinu ed, Routine NaCl 0.9% 2020-0 2020- No 500mL at 999 Univ ers (NS) bolus 12-09 mL/hr, 500 it y of infusion 15:04: 15:32 mL, IV [place] 500 mL 00 :00 Piggyback, Medical ONCE, 1 Branch dose, 12/10/19 at 1015, ONESIMO morpHINE 2019-0 2020- No 4mg 4 mg, Slow Un martha injection 4 12-09 IV Push, ity of mg 15:00: 18:20 Q6HPRN, [place] 00 :14 Starting Medical Fri Branch 12/10/19 at 1000, Until 12/18/19 at 1320, Routine, Pain (scale 7-10) ondansetron 2019-0 2020- No 4mg 4 mg, Slow Univers (ZOFRAN 12-09 IV Push, ity of (PF)) 15:00: 12:13 Q6HPRN, [place] injection 4 00 :36 Starting Medi bharat mg Fri12/10/19 at 1000, Until [place] 12/16/19 at 0713, Routine, Nausea and Vomiting (N/V) HYDROcodone 2019-0 2020- No 1{tbl} 1 tablet, Univers -acetaminop 12-08 Oral, ity of hen (NORCO 01:00: 18:52 Q12H, [place] 5) 5-325 mg 00 :31 First dose Me dical tablet 1 (after Branch tablet last modificati on) on Fri12/08/19 at 2000, Until Discontinu ed, Routine lactated 2020- No 500mL at 999 Unive rs ringers IV 12-07 mL/hr, 500 it y of infusion 17:00: 17:03 mL, IV [place] 500 mL 00 :00 Infusion, Medical ONCE, 1 Branch dose, Fri12/08/19 at 1200, STAT morpHINE 2019-2019- No 4mg 4 mg, Slow Un martha injection 4 12-07 IV Push, ity of mg 15:09: 14:47 [id number], [place] 29 :59 Starting Medical Fri12/08/19 at 1009, Until Fri12/10/19 at 0947, Routine, Pain (scale 7-10) ondansetron 2019- 2020- No 4mg 4 mg, Slow Univers (ZOFRAN 12-07 IV Push, ity of (PF)) 12:15: 14:47 Q8HPRN, [place] injection 4 49 :59 Starting Medi bharat mg Fri12/08/19 at 0715, Until Fri12/10/19 at 0947, Routine, Nausea and Vomiting (N/V) sennosides 2019-0 2020- No 8.6mg 8.6 mg, Un martha (SENOKOT) 12-06 Oral, ity of tablet 8.6 15:15: 14:47 DAILY, [place] mg 00 :59 First dose Medical on Fri12/07/19 at 1015, Until Discontinu ed, Routine morpHINE 2019-0 2020- No 4mg 4 mg, Slow Un martha injection 4 12-05 IV Push, ity of mg 20:03: 14:39 Q4HPRN, [place] 25 :49 Starting Medical [facility] 12/06/19 at 1503, Until 12/08/19 at 0939, Routine, Pain (scale 7-10) HYDROcodone 2020-0 2020- No 1{tbl} 1 tablet, Univers -acetaminop 12-05 Oral, Q8H, i ty of hen (NORCO 19:00: 14:38 First dose [place] 5) 5-325 mg 00 :51 on [facility] Medica l tablet 1 12/06/19 at [facility] h tablet 1400, Until Discontinu ed, Routine acetaminoph 2020-0 2020- No 650mg 650 mg, U nivers en 12-05 Oral, ity of (TYLENOL) 16:02: 19:36 Q6HPRN, [place] tablet 650 34 :49 Starting Medic al mg [facility] 12/06/19 at 1102, Until 12/19/19 at 1436, Routine, Pain (scale 1-3), Pain (scale 4-6) pravastatin 2020-0 Yes 40mg 40 mg, Univ ers (PRAVACHOL) 12-04 Oral, QHS, it y of tablet 40 02:00: First dose [place] mg 00 on [facility] 12/04/19 at Branch 2100, Until Discontinu ed, Routine acetaminoph 2020-0 2020- No 1{tbl} 1 tablet, [facility] en-codeine 12-03 Oral, ity of (TYLENOL 16:06: 16:03 Q4HPN, [place] #3) 300-30 40 :45 Starting Medic al mg tablet 1 [facility] tablet 12/04/19 at 1106, Until [facility] 12/06/19 at 1103, Routine, Pain (scale 4-6) tamsulosin 2020-0 Yes .4mg 0.4 mg, Univ ers (FLOMAX) 12-03 Oral, ity of capsule 0.4 14:00: DAILY, [place] mg 00 First dose Medical on [facility] 12/04/19 at 0900, Until Discontinu ed, Routine omeprazole 2020-0 Yes 40mg 40 mg, Unive rs (PRILOSEC) 12-03 Oral, ity of capsule 40 14:00: DAILY, [place] mg 00 First dose Medical on [facility] 12/04/19 at 0900, Until Discontinu ed clopidogreL 2020-0 Yes 75mg 75 mg, Univ ers (PLAVIX) 12-03 Oral, ity of tablet 75 14:00: DAILY, [place] mg 00 First dose Medical on [facility] Branch 12/04/19 at 0900, Until Discontinu ed, Routine metoprolol 2020-0 Yes 25mg 25 mg, Unive rs tartrate 12-03 Oral, ity of (LOPRESSOR) 13:00: Q12H, [place] tablet 25 00 First dose Medi bharat mg on [facility] Branch 12/04/19 at 0800, Until Discontinu ed, Routine cilostazoL 2020-0 Yes 100mg 100 mg, Uni vers (PLETAL) 12-03 Oral, BID ity of tablet 100 13:00: MEALS, [place] mg 00 First dose Medical on [facility] Branch 12/04/19 at 0800, Until Discontinu ed, Routine Polyethylen 2020-0 2020- No 17g 17 g, Univ ers e Glycol 12-03 Oral, BID, ity of 3350 13:00: 01:37 First dose [place] (MIRALAX) 00 :56 on [facility] Medical powder 17 g 12/04/19 at Br anch 0800, Until Discontinu ed, Routine gabapentin 2020-0 2020- No 400mg 400 mg, Un martha (NEURONTIN) 12-03 Oral, TID, i ty of capsule 400 13:00: 19:34 First dose [place] mg 00 :34 on [facility] Medical 12/04/19 at Branch 0800, Until Discontinu ed, Routine Sliding 2020-0 2020- No Subcutaneo Uni vers Scale 12-03 us, TID ity of Insulin - 13:00: 13:17 MEALS+HS, [place] Aspart 00 :35 First dose Medical (NOVOLOG) + on [facility] Branch Fsbg 12/04/19 at Testing 0800, Until Discontinu ed, Routine heparin 2020-0 2020- No 5000U 5,000 Univers (porcine) 12-03 Units, ity of injection 13:00: 01:42 Subcutaneo [place] 5,000 Units 00 :55 us, Q12H, Med ical First dose Branch on 12/04/19 at 0800, Until Discontinu ed, Routine vancomycin 2020-0 2020- No 1250mg 1,250 mg, Univers 1250 mg in 12-0315 IV ity of NS 250 mL 05:30: 07:06 Piggyback, [place] RTU IV 00 :42 Q12H ABX, Medical Piggyback First dose Bran ch 1,250 mg on 12/04/19 at 0030, Until Discontinu ed
Reas on for Anti-Infec tive: Documented Infection< br>Documen sapna Infection Site: Skin / Soft Tissue< br>Duratio n of Therapy: 7 days ertapenem 2019- No 1000mg 1,000 mg, [facility] (INVANZ) 12-0316 IV ity of 1,000 mg in 05:24: 05:04 Piggyback, [place] NaCl 0.9% 00 :34 Q24H ABX, Medic al (NS) 50 mL First dose Bra nch MINI-BAG on 12/04/19 at 0030, Until Discontinu ed, 50 mL
R gabe for Anti-Infec tive: Documented Infection< br>Documen sapna Infection Site: Skin / Soft Tissue
Duration of Therapy: 7 days
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 dextrose 50 2019-0 Yes 25mL 25 mL, [facility] ers % in water 12-03 Slow IV ity of (D50W) 04:29: Push, PRN, [place] injection 02 Starting Medica l 25 mL Fri Branch 12/03/19 at 2329, Until Discontinu ed, ONESIMO, Blood Glucose < or = 70 mg/dL and patient is unable to swallow or has mental status changes. acetaminoph 2019- No 650mg 650 mg, U nivers en 12-03 Oral, ity of (TYLENOL) 04:27: 16:03 Q6HPRN, [place] 650 11 :45 Starting Medic al mg Fri Branch 12/03/19 at 2327, Until 12/06/19 at 1103, Routine, Pain (scale 1-3) clopidogreL 2020-0 Yes 75mg Take 75 mg [facility] 75 mg 6-26 by mouth ity of tablet 00:37: daily. [address] clopidogreL 2020-0 Yes 75mg Take 75 mg [facility] 75 mg 6-26 by mouth ity of tablet 00:37: daily. [address] clopidogreL 2020-0 Yes 75mg Take 75 mg [facility] 75 mg 6-26 by mouth ity of tablet 00:37: daily. [address] clopidogreL 2020-0 Yes 75mg Take 75 mg [facility] 75 mg 6-26 by mouth ity of tablet 00:37: daily. [address] clopidogreL 2020-0 Yes 75mg Take 75 mg [facility] 75 mg 6-26 by mouth ity of tablet 00:37: daily. [address] clopidogreL 2020-0 Yes 75mg Take 75 mg [facility] 75 mg 6-26 by mouth ity of tablet 00:37: daily. [address] clopidogreL 2020-0 Yes 75mg Take 75 mg [facility] 75 mg 6-26 by mouth ity of tablet 00:37: daily. [address] clopidogreL 2020-0 Yes 75mg Take 75 mg [facility] 75 mg 6-26 by mouth ity of tablet 00:37: daily. [address] clopidogreL 2020-0 Yes 75mg Take 75 mg [facility] 75 mg 6-26 by mouth ity of tablet 00:37: daily. [address] clopidogreL 2020-0 Yes 75mg Take 75 mg [facility] 75 mg 6-26 by mouth ity of tablet 00:37: daily. [address] clopidogreL 2020-0 Yes 75mg Take 75 mg [facility] 75 mg 6-26 by mouth ity of tablet 00:37: daily. [address] clopidogreL 2020-0 Yes 75mg Take 75 mg [facility] 75 mg 6-26 by mouth ity of tablet 00:37: daily. [address] LINAGLIPTIN 2020-0 2020- No Take by [facility] -METFORMIN 6-26 06-25 mouth at ity of 2.5-850 mg 00:35: 00:00 bedtime. [place] Tab 24 :00 [facility] ibuprofen 2020-0 2020- No 600mg Take 600 [facility] 600 mg 6-25 06-25 mg by ity of tablet 17:24: 00:00 mouth 3 [place] 11 :00 (three) Medical times Branch daily. lidocaine 2020-0 2020- No 5mL 5 mL, Univer s 1% (PF) 6-25 06-25 Subcutaneo ity o f (XYLOCAINE) 12:15: 16:00 us, ONCE, [place] injection 5 00 :00 1 dose, Medic al mL [place] Branch 09/16/19 at 0715, Routine NaCl 0.9% 2020-0 Yes 10mL 10 mL, Univer s (NS) 6-25 Slow IV ity of injection 12:11: Push, PRN, [place] 10 mL 22 Starting Medical [place] Branch 09/16/19 at 0711, Until Discontinu ed, Routine, line maintenanc e ferrous 2020-0 Yes [id number] 324mg Take 1 [facility] gluconate 6-25 tablet by ity o f 324 mg 00:00: mouth [place] (37.5 mg 00 every Medical iron) other day. Branch tablet gabapentin 2020-0 Yes [id number] 400mg Take 1 [facility] 400 mg 6-25 [id number] capsule by ity o f capsule 00:00: mouth 3 [place] 00 (three) Medical times Branch daily. omeprazole 2020-0 Yes [id number] 40mg Take 1 [facility] 40 mg 6-25 [id number] capsule by ity of capsule 00:00: mouth [place] 00 every Medical evening. Branch acetaminoph 2020-0 Yes [id number] 1{tbl} Take 1 [facility] en-codeine 6-25 [id number] tablet by it y of 300-30 mg 00:00: mouth [place] tablet 00 every 6 Medical (six) Branch hours as needed for Pain (scale 7-10). traMADol 50 2020-0 Yes [id number] 50mg Take 1 [facility] mg tablet 6-25 [id number] tablet by ity of 00:00: mouth [place] 00 every 6 Medical (six) Branch hours as needed for Pain (scale 4-6). linagliptin 2020-0 Yes [id number] 1{tbl} Take 1 [facility] -metformin 6-25 9101 tablet by ity of 2.5-850 mg 00:00: mouth [place] Tab 00 bedtime. Medical Branch ferrous 2020-0 Yes [id number] 324mg Take 1 [facility] gluconate 6-25 tablet by ity o f 324 mg 00:00: mouth [place] (37.5 mg 00 every Medical iron) other day. Branch tablet gabapentin 2020-0 Yes [id number] 400mg Take 1 [facility] 400 mg 6-25 [id number] capsule by ity o f capsule 00:00: mouth 3 [place] 00 (three) Medical times Branch daily. omeprazole 2020-0 Yes [id number] 40mg Take 1 [facility] 40 mg 6-25 [id number] capsule by ity of capsule 00:00: mouth [place] 00 every Medical evening. Branch acetaminoph 2020-0 Yes [id number] 1{tbl} Take 1 [facility] en-codeine 6-25 [id number] tablet by it y of 300-30 mg 00:00: mouth [place] tablet 00 every 6 Medical (six) Branch hours as needed for Pain (scale 7-10). traMADol 50 2020-0 Yes [id number] 50mg Take 1 [facility] mg tablet 6-25 [id number] tablet by ity of 00:00: mouth [place] 00 every 6 Medical (six) Branch hours as needed for Pain (scale 4-6). linagliptin 2020-0 Yes [id number] 1{tbl} Take 1 [facility] -metformin 6-25 9101 tablet by ity of 2.5-850 mg 00:00: mouth [place] Tab 00 bedtime. Medical Branch ferrous 2020-0 Yes [id number] 324mg Take 1 [facility] gluconate 6-25 tablet by ity o f 324 mg 00:00: mouth [place] (37.5 mg 00 every Medical iron) other day. Branch tablet gabapentin 2020-0 Yes [id number] 400mg Take 1 [facility] 400 mg 6-25 [id number] capsule by ity o f capsule 00:00: mouth 3 [place] 00 (three) Medical times Branch daily. omeprazole 2020-0 Yes [id number] 40mg Take 1 [facility] 40 mg 6-25 [id number] capsule by ity of capsule 00:00: mouth [place] 00 every Medical evening. Branch acetaminoph 2020-0 Yes [id number] 1{tbl} Take 1 [facility] en-codeine 6-25 [id number] tablet by it y of 300-30 mg 00:00: mouth [place] tablet 00 every 6 Medical (six) Branch hours as needed for Pain (scale 7-10). traMADol 50 2020-0 Yes [id number] 50mg Take 1 [facility] mg tablet 6-25 [id number] tablet by ity of 00:00: mouth [place] 00 every 6 Medical (six) Branch hours as needed for Pain (scale 4-6). linagliptin 2020-0 Yes [id number] 1{tbl} Take 1 [facility] -metformin 6-25 9101 tablet by ity of 2.5-850 mg 00:00: mouth [place] Tab 00 bedtime. Medical Branch ferrous 2020-0 Yes [id number] 324mg Take 1 [facility] gluconate 6-25 tablet by ity o f 324 mg 00:00: mouth [place] (37.5 mg 00 every Medical iron) other day. Branch tablet gabapentin 2020-0 Yes [id number] 400mg Take 1 [facility] 400 mg 6-25 [id number] capsule by ity o f capsule 00:00: mouth 3 [place] 00 (three) Medical times Branch daily. omeprazole 2020-0 Yes [id number] 40mg Take 1 [facility] 40 mg 6-25 [id number] capsule by ity of capsule 00:00: mouth [place] 00 every Medical evening. Branch acetaminoph 2020-0 Yes [id number] 1{tbl} Take 1 [facility] en-codeine 6-25 [id number] tablet by it y of 300-30 mg 00:00: mouth [place] tablet 00 every 6 Medical (six) Branch hours as needed for Pain (scale 7-10). traMADol 50 2020-0 Yes [id number] 50mg Take 1 [facility] mg tablet 6-25 [id number] tablet by ity of 00:00: mouth [place] 00 every 6 Medical (six) Branch hours as needed for Pain (scale 4-6). linagliptin 2020-0 Yes [id number] 1{tbl} Take 1 [facility] -metformin 6-25 9101 tablet by ity of 2.5-850 mg 00:00: mouth [place] Tab 00 bedtime. Medical Branch ferrous 2020-0 Yes [id number] 324mg Take 1 [facility] gluconate 6-25 tablet by ity o f 324 mg 00:00: mouth [place] (37.5 mg 00 every Medical iron) other day. Branch tablet gabapentin 2020-0 Yes [id number] 400mg Take 1 [facility] 400 mg 6-25 [id number] capsule by ity o f capsule 00:00: mouth 3 [place] 00 (three) Medical times Branch daily. omeprazole 2020-0 Yes [id number] 40mg Take 1 [facility] 40 mg 6-25 [id number] capsule by ity of capsule 00:00: mouth [place] 00 every Medical evening. Branch acetaminoph 2020-0 Yes [id number] 1{tbl} Take 1 [facility] en-codeine 6-25 [id number] tablet by it y of 300-30 mg 00:00: mouth [place] tablet 00 every 6 Medical (six) Branch hours as needed for Pain (scale 7-10). traMADol 50 2020-0 Yes [id number] 50mg Take 1 [facility] mg tablet 6-25 [id number] tablet by ity of 00:00: mouth [place] 00 every 6 Medical (six) Branch hours as needed for Pain (scale 4-6). linagliptin 2020-0 Yes [id number] 1{tbl} Take 1 [facility] -metformin 6-25 9101 tablet by ity of 2.5-850 mg 00:00: mouth [place] Tab 00 bedtime. Medical Branch ferrous 2020-0 Yes [id number] 324mg Take 1 [facility] gluconate 6-25 tablet by ity o f 324 mg 00:00: mouth [place] (37.5 mg 00 every Medical iron) other day. Branch tablet gabapentin 2020-0 Yes [id number] 400mg Take 1 [facility] 400 mg 6-25 [id number] capsule by ity o f capsule 00:00: mouth 3 [place] 00 (three) Medical times Branch daily. omeprazole 2020-0 Yes [id number] 40mg Take 1 [facility] 40 mg 6-25 [id number] capsule by ity of capsule 00:00: mouth [place] 00 every Medical evening. Branch acetaminoph 2020-0 Yes [id number] 1{tbl} Take 1 [facility] en-codeine 6-25 [id number] tablet by it y of 300-30 mg 00:00: mouth [place] tablet 00 every 6 Medical (six) Branch hours as needed for Pain (scale 7-10). traMADol 50 2020-0 Yes [id number] 50mg Take 1 [facility] mg tablet 6-25 [id number] tablet by ity of 00:00: mouth [place] 00 every 6 Medical (six) Branch hours as needed for Pain (scale 4-6). linagliptin 2020-0 Yes [id number] 1{tbl} Take 1 [facility] -metformin 6-25 9101 tablet by ity of 2.5-850 mg 00:00: mouth [place] Tab 00 bedtime. Medical Branch ferrous 2020-0 Yes [id number] 324mg Take 1 [facility] gluconate 6-25 tablet by ity o f 324 mg 00:00: mouth [place] (37.5 mg 00 every Medical iron) other day. Branch tablet gabapentin 2020-0 Yes [id number] 400mg Take 1 [facility] 400 mg 6-25 [id number] capsule by ity o f capsule 00:00: mouth 3 [place] 00 (three) Medical times Branch daily. omeprazole 2020-0 Yes [id number] 40mg Take 1 [facility] 40 mg 6-25 [id number] capsule by ity of capsule 00:00: mouth [place] 00 every Medical evening. Branch acetaminoph 2020-0 Yes [id number] 1{tbl} Take 1 [facility] en-codeine 6-25 [id number] tablet by it y of 300-30 mg 00:00: mouth [place] tablet 00 every 6 Medical (six) Branch hours as needed for Pain (scale 7-10). traMADol 50 2020-0 Yes [id number] 50mg Take 1 [facility] mg tablet 6-25 [id number] tablet by ity of 00:00: mouth [place] 00 every 6 Medical (six) Branch hours as needed for Pain (scale 4-6). linagliptin 2020-0 Yes [id number] 1{tbl} Take 1 [facility] -metformin 6-25 9101 tablet by ity of 2.5-850 mg 00:00: mouth at [place] Tab 00 bedtime. Medical Branch ferrous 2020-0 Yes [id number] 324mg Take 1 [facility] gluconate 6-25 tablet by ity o f 324 mg 00:00: mouth [place] (37.5 mg 00 every Medical iron) other day. Branch tablet gabapentin 2020-0 Yes [id number] 400mg Take 1 [facility] 400 mg 6-25 [id number] capsule by ity o f capsule 00:00: mouth 3 [place] 00 (three) Medical times Branch daily. omeprazole 2020-0 Yes [id number] 40mg Take 1 [facility] 40 mg 6-25 [id number] capsule by ity of capsule 00:00: mouth [place] 00 every Medical evening. Branch acetaminoph 2020-0 Yes [id number] 1{tbl} Take 1 [facility] en-codeine 6-25 [id number] tablet by it y of 300-30 mg 00:00: mouth [place] tablet 00 every 6 Medical (six) Branch hours as needed for Pain (scale 7-10). traMADol 50 2020-0 Yes [id number] 50mg Take 1 [facility] mg tablet 6-25 [id number] tablet by ity of 00:00: mouth [place] 00 every 6 Medical (six) Branch hours as needed for Pain (scale 4-6). linagliptin 2020-0 Yes [id number] 1{tbl} Take 1 [facility] -metformin 6-25 9101 tablet by ity of 2.5-850 mg 00:00: mouth [place] Tab 00 bedtime. Medical Branch ferrous 2020-0 Yes [id number] 324mg Take 1 [facility] gluconate 6-25 tablet by ity o f 324 mg 00:00: mouth [place] (37.5 mg 00 every Medical iron) other day. Branch tablet gabapentin 2020-0 Yes [id number] 400mg Take 1 [facility] 400 mg 6-25 [id number] capsule by ity o f capsule 00:00: mouth 3 [place] 00 (three) Medical times Branch daily. omeprazole 2020-0 Yes [id number] 40mg Take 1 [facility] 40 mg 6-25 [id number] capsule by ity of capsule 00:00: mouth [place] 00 every Medical evening. Branch acetaminoph 2020-0 Yes [id number] 1{tbl} Take 1 [facility] en-codeine 6-25 [id number] tablet by it y of 300-30 mg 00:00: mouth [place] tablet 00 every 6 Medical (six) Branch hours as needed for Pain (scale 7-10). traMADol 50 2020-0 Yes [id number] 50mg Take 1 [facility] mg tablet 6-25 [id number] tablet by ity of 00:00: mouth [place] 00 every 6 Medical (six) Branch hours as needed for Pain (scale 4-6). linagliptin 2020-0 Yes [id number] 1{tbl} Take 1 [facility] -metformin 6-25 9101 tablet by ity of 2.5-850 mg 00:00: mouth at [place] Tab 00 bedtime. Medical Branch ferrous 2020-0 Yes [id number] 324mg Take 1 [facility] gluconate 6-25 tablet by ity o f 324 mg 00:00: mouth [place] (37.5 mg 00 every Medical iron) other day. Branch tablet gabapentin 2020-0 Yes [id number] 400mg Take 1 [facility] 400 mg 6-25 [id number] capsule by ity o f capsule 00:00: mouth 3 [place] 00 (three) Medical times Branch daily. omeprazole 2020-0 Yes [id number] 40mg Take 1 [facility] 40 mg 6-25 [id number] capsule by ity of capsule 00:00: mouth [place] 00 every Medical evening. Branch acetaminoph 2020-0 Yes [id number] 1{tbl} Take 1 [facility] en-codeine 6-25 [id number] tablet by it y of 300-30 mg 00:00: mouth [place] tablet 00 every 6 Medical (six) Branch hours as needed for Pain (scale 7-10). traMADol 50 2020-0 Yes [id number] 50mg Take 1 [facility] mg tablet 6-25 [id number] tablet by ity of 00:00: mouth [place] 00 every 6 Medical (six) Branch hours as needed for Pain (scale 4-6). linagliptin 2020-0 Yes [id number] 1{tbl} Take 1 [facility] -metformin 6-25 9101 tablet by ity of 2.5-850 mg 00:00: mouth at [place] Tab 00 bedtime. Medical Branch ferrous 2020-0 Yes [id number] 324mg Take 1 [facility] gluconate 6-25 tablet by ity o f 324 mg 00:00: mouth [place] (37.5 mg 00 every Medical iron) other day. Branch tablet gabapentin 2020-0 Yes [id number] 400mg Take 1 [facility] 400 mg 6-25 [id number] capsule by ity o f capsule 00:00: mouth 3 [place] 00 (three) Medical times Branch daily. omeprazole 2020-0 Yes [id number] 40mg Take 1 [facility] 40 mg 6-25 [id number] capsule by ity of capsule 00:00: mouth [place] 00 every Medical evening. Branch acetaminoph 2020-0 Yes [id number] 1{tbl} Take 1 [facility] en-codeine 6-25 [id number] tablet by it y of 300-30 mg 00:00: mouth [place] tablet 00 every 6 Medical (six) Branch hours as needed for Pain (scale 7-10). traMADol 50 2020-0 Yes [id number] 50mg Take 1 [facility] mg tablet 6-25 [id number] tablet by ity of 00:00: mouth [place] 00 every 6 Medical (six) Branch hours as needed for Pain (scale 4-6). linagliptin 2020-0 Yes [id number] 1{tbl} Take 1 [facility] -metformin 6-25 9101 tablet by ity of 2.5-850 mg 00:00: mouth at [place] Tab 00 bedtime. Medical Branch gabapentin 2020-0 Yes [id number] 400mg Take 1 [facility] 400 mg 6-25 [id number] capsule by ity o f capsule 00:00: mouth 3 [place] 00 (three) Medical times Branch daily. omeprazole 2020-0 Yes [id number] 40mg Take 1 [facility] 40 mg 6-25 [id number] capsule by ity of capsule 00:00: mouth [place] 00 every Medical evening. Branch linagliptin 2020-0 Yes [id number] 1{tbl} Take 1 [facility] -metformin 6-25 9101 tablet by ity of 2.5-850 mg 00:00: mouth at [place] Tab 00 bedtime. Medical Branch gabapentin 2020-0 Yes [id number] 400mg Take 1 [facility] 400 mg 6-25 [id number] capsule by ity o f capsule 00:00: mouth 3 [place] 00 (three) Medical times Branch daily. omeprazole 2020-0 Yes [id number] 40mg Take 1 [facility] 40 mg 6-25 [id number] capsule by ity of capsule 00:00: mouth [place] 00 every Medical evening. Branch linagliptin 2020-0 Yes [id number] 1{tbl} Take 1 [facility] -metformin 6-25 9101 tablet by ity of 2.5-850 mg 00:00: mouth at [place] Tab 00 bedtime. Medical Branch gabapentin 2020-0 Yes [id number] 400mg Take 1 [facility] 400 mg 6-25 [id number] capsule by ity o f capsule 00:00: mouth 3 [place] 00 (three) Medical times Branch daily. omeprazole 2020-0 Yes [id number] 40mg Take 1 [facility] 40 mg 6-25 [id number] capsule by ity of capsule 00:00: mouth [place] 00 every Medical evening. Branch linagliptin 2020-0 Yes [id number] 1{tbl} Take 1 [facility] -metformin 6-25 9101 tablet by ity of 2.5-850 mg 00:00: mouth at [place] Tab 00 bedtime. Medical Branch gabapentin 2020-0 Yes [id number] 400mg Take 1 [facility] 400 mg 6-25 [id number] capsule by ity o f capsule 00:00: mouth 3 [place] 00 (three) Medical times Branch daily. omeprazole 2020-0 Yes [id number] 40mg Take 1 [facility] 40 mg 6-25 [id number] capsule by ity of capsule 00:00: mouth [place] 00 every Medical evening. Branch linagliptin 2020-0 Yes [id number] 1{tbl} Take 1 [facility] -metformin 6-25 9101 tablet by ity of 2.5-850 mg 00:00: mouth at [place] Tab 00 bedtime. Medical Branch gabapentin 2020-0 Yes [id number] 400mg Take 1 [facility] 400 mg 6-25 [id number] capsule by ity o f capsule 00:00: mouth 3 [place] 00 (three) Medical times Branch daily. omeprazole 2020-0 Yes [id number] 40mg Take 1 [facility] 40 mg 6-25 [id number] capsule by ity of capsule 00:00: mouth [place] 00 every Medical evening. Branch linagliptin 2020-0 Yes [id number] 1{tbl} Take 1 [facility] -metformin 6-25 9101 tablet by ity of 2.5-850 mg 00:00: mouth at [place] Tab 00 bedtime. Medical Branch gabapentin 2020-0 Yes [id number] 400mg Take 1 [facility] 400 mg 6-25 [id number] capsule by ity o f capsule 00:00: mouth 3 [place] 00 (three) Medical times Branch daily. omeprazole 2020-0 Yes [id number] 40mg Take 1 [facility] 40 mg 6-25 [id number] capsule by ity of capsule 00:00: mouth [place] 00 every Medical evening. Branch linagliptin 2020-0 Yes [id number] 1{tbl} Take 1 [facility] -metformin 6-25 9101 tablet by ity of 2.5-850 mg 00:00: mouth at [place] Tab 00 bedtime. Medical Branch gabapentin 2020-0 Yes [id number] 400mg Take 1 [facility] 400 mg 6-25 [id number] capsule by ity o f capsule 00:00: mouth 3 [place] 00 (three) Medical times Branch daily. omeprazole 2020-0 Yes [id number] 40mg Take 1 [facility] 40 mg 6-25 [id number] capsule by ity of capsule 00:00: mouth [place] 00 every Medical evening. Branch linagliptin 2020-0 Yes [id number] 1{tbl} Take 1 [facility] -metformin 6-25 9101 tablet by ity of 2.5-850 mg 00:00: mouth at [place] Tab 00 bedtime. Medical Branch gabapentin 2020-0 Yes [id number] 400mg Take 1 [facility] 400 mg 6-25 [id number] capsule by ity o f capsule 00:00: mouth 3 [place] 00 (three) Medical times Branch daily. omeprazole 2020-0 Yes [id number] 40mg Take 1 [facility] 40 mg 6-25 [id number] capsule by ity of capsule 00:00: mouth [place] 00 every Medical evening. Branch linagliptin 2020-0 Yes [id number] 1{tbl} Take 1 [facility] -metformin 6-25 9101 tablet by ity of 2.5-850 mg 00:00: mouth at [place] Tab 00 bedtime. Medical Branch gabapentin 2020-0 Yes [id number] 400mg Take 1 [facility] 400 mg 6-25 [id number] capsule by ity o f capsule 00:00: mouth 3 [place] 00 (three) Medical times Branch daily. omeprazole 2020-0 Yes [id number] 40mg Take 1 [facility] 40 mg 6-25 [id number] capsule by ity of capsule 00:00: mouth [place] 00 every Medical evening. Branch linagliptin 2020-0 Yes [id number] 1{tbl} Take 1 [facility] -metformin 6-25 9101 tablet by ity of 2.5-850 mg 00:00: mouth at [place] Tab 00 bedtime. Medical Branch gabapentin 2020-0 Yes [id number] 400mg Take 1 [facility] 400 mg 6-25 [id number] capsule by ity o f capsule 00:00: mouth 3 [place] 00 (three) Medical times Branch daily. omeprazole 2020-0 Yes [id number] 40mg Take 1 [facility] 40 mg 6-25 [id number] capsule by ity of capsule 00:00: mouth [place] 00 every Medical evening. Branch linagliptin 2020-0 Yes [id number] 1{tbl} Take 1 [facility] -metformin 6-25 9101 tablet by ity of 2.5-850 mg 00:00: mouth at [place] Tab 00 bedtime. Medical Branch gabapentin 2020-0 Yes [id number] 400mg Take 1 [facility] 400 mg 6-25 [id number] capsule by ity o f capsule 00:00: mouth 3 [place] 00 (three) Medical times Branch daily. omeprazole 2020-0 Yes [id number] 40mg Take 1 [facility] 40 mg 6-25 [id number] capsule by ity of capsule 00:00: mouth [place] 00 every Medical evening. Branch linagliptin 2020-0 Yes [id number] 1{tbl} Take 1 [facility] -metformin 6-25 9101 tablet by ity of 2.5-850 mg 00:00: mouth at [place] Tab 00 bedtime. Medical Branch gabapentin 2020-0 Yes [id number] 400mg Take 1 [facility] 400 mg 6-25 [id number] capsule by ity o f capsule 00:00: mouth 3 [place] 00 (three) Medical times Branch daily. omeprazole 2020-0 Yes [id number] 40mg Take 1 [facility] 40 mg 6-25 [id number] capsule by ity of capsule 00:00: mouth [place] 00 every Medical evening. Branch linagliptin 2020-0 Yes [id number] 1{tbl} Take 1 [facility] -metformin 6-25 9101 tablet by ity of 2.5-850 mg 00:00: mouth at [place] Tab 00 bedtime. Medical Branch gabapentin 2020-0 Yes [id number] 400mg Take 1 [facility] 400 mg 6-25 [id number] capsule by ity o f capsule 00:00: mouth 3 [place] 00 (three) Medical times Branch daily. omeprazole 2020-0 Yes [id number] 40mg Take 1 [facility] 40 mg 6-25 [id number] capsule by ity of capsule 00:00: mouth [place] 00 every Medical evening. Branch linagliptin 2020-0 Yes [id number] 1{tbl} Take 1 [facility] -metformin 6-25 9101 tablet by ity of 2.5-850 mg 00:00: mouth at [place] Tab 00 bedtime. Medical Branch gabapentin 2020-0 Yes [id number] 400mg Take 1 [facility] 400 mg 6-25 [id number] capsule by ity o f capsule 00:00: mouth 3 [place] 00 (three) Medical times Branch daily. omeprazole 2020-0 Yes [id number] 40mg Take 1 [facility] 40 mg 6-25 [id number] capsule by ity of capsule 00:00: mouth [place] 00 every Medical evening. Branch linagliptin 2020-0 Yes [id number] 1{tbl} Take 1 [facility] -metformin 6-25 9101 tablet by ity of 2.5-850 mg 00:00: mouth at [place] Tab 00 bedtime. Medical Branch gabapentin 2020-0 Yes [id number] 400mg Take 1 [facility] 400 mg 6-25 [id number] capsule by ity o f capsule 00:00: mouth 3 [place] 00 (three) Medical times Branch daily. omeprazole 2020-0 Yes [id number] 40mg Take 1 [facility] 40 mg 6-25 [id number] capsule by ity of capsule 00:00: mouth [place] 00 every Medical evening. Branch linagliptin 2020-0 Yes [id number] 1{tbl} Take 1 [facility] -metformin 6-25 9101 tablet by ity of 2.5-850 mg 00:00: mouth at [place] Tab 00 bedtime. Medical Branch gabapentin 2020-0 Yes [id number] 400mg Take 1 [facility] 400 mg 6-25 [id number] capsule by ity o f capsule 00:00: mouth 3 [place] 00 (three) Medical times Branch daily. omeprazole 2020-0 Yes [id number] 40mg Take 1 [facility] 40 mg 6-25 [id number] capsule by ity of capsule 00:00: mouth [place] 00 every Medical evening. Branch linagliptin 2020-0 Yes [id number] 1{tbl} Take 1 [facility] -metformin 6-25 9101 tablet by ity of 2.5-850 mg 00:00: mouth at [place] Tab 00 bedtime. Medical Branch gabapentin 2020-0 Yes [id number] 400mg Take 1 [facility] 400 mg 6-25 [id number] capsule by ity o f capsule 00:00: mouth 3 [place] 00 (three) Medical times Branch daily. omeprazole 2020-0 Yes [id number] 40mg Take 1 [facility] 40 mg 6-25 [id number] capsule by ity of capsule 00:00: mouth [place] 00 every Medical evening. Branch linagliptin 2020-0 Yes [id number] 1{tbl} Take 1 [facility] -metformin 6-25 9101 tablet by ity of 2.5-850 mg 00:00: mouth at [place] Tab 00 bedtime. Medical Branch gabapentin 2020-0 Yes [id number] 400mg Take 1 [facility] 400 mg 6-25 [id number] capsule by ity o f capsule 00:00: mouth 3 [place] 00 (three) Medical times Branch daily. omeprazole 2020-0 Yes [id number] 40mg Take 1 [facility] 40 mg 6-25 [id number] capsule by ity of capsule 00:00: mouth [place] 00 every Medical evening. Branch linagliptin 2020-0 Yes [id number] 1{tbl} Take 1 [facility] -metformin 6-25 9101 tablet by ity of 2.5-850 mg 00:00: mouth at [place] Tab 00 bedtime. Medical Branch gabapentin 2020-0 Yes [id number] 400mg Take 1 [facility] 400 mg 6-25 [id number] capsule by ity o f capsule 00:00: mouth 3 [place] 00 (three) Medical times Branch daily. omeprazole 2020-0 Yes [id number] 40mg Take 1 [facility] 40 mg 6-25 [id number] capsule by ity of capsule 00:00: mouth [place] 00 every Medical evening. Branch linagliptin 2020-0 Yes [id number] 1{tbl} Take 1 [facility] -metformin 6-25 9101 tablet by ity of 2.5-850 mg 00:00: mouth at [place] Tab 00 bedtime. Medical Branch gabapentin 2020-0 Yes [id number] 400mg Take 1 [facility] 400 mg 6-25 [id number] capsule by ity o f capsule 00:00: mouth 3 [place] 00 (three) Medical times Branch daily. omeprazole 2020-0 Yes [id number] 40mg Take 1 [facility] 40 mg 6-25 [id number] capsule by ity of capsule 00:00: mouth [place] 00 every Medical evening. Branch linagliptin 2020-0 Yes [id number] 1{tbl} Take 1 [facility] -metformin 6-25 9101 tablet by ity of 2.5-850 mg 00:00: mouth at [place] Tab 00 bedtime. Medical Branch gabapentin 2020-0 Yes [id number] 400mg Take 1 [facility] 400 mg 6-25 [id number] capsule by ity o f capsule 00:00: mouth 3 [place] 00 (three) Medical times Branch daily. omeprazole 2020-0 Yes [id number] 40mg Take 1 [facility] 40 mg 6-25 [id number] capsule by ity of capsule 00:00: mouth [place] 00 every Medical evening. Branch linagliptin 2020-0 Yes [id number] 1{tbl} Take 1 [facility] -metformin 6-25 9101 tablet by ity of 2.5-850 mg 00:00: mouth at [place] Tab 00 bedtime. Medical Branch gabapentin 2020-0 Yes [id number] 400mg Take 1 [facility] 400 mg 6-25 [id number] capsule by ity o f capsule 00:00: mouth 3 [place] 00 (three) Medical times Branch daily. omeprazole 2020-0 Yes [id number] 40mg Take 1 [facility] 40 mg 6-25 [id number] capsule by ity of capsule 00:00: mouth [place] 00 every Medical evening. Branch linagliptin 2020-0 Yes [id number] 1{tbl} Take 1 [facility] -metformin 6-25 9101 tablet by ity of 2.5-850 mg 00:00: mouth at [place] Tab 00 bedtime. Medical Branch gabapentin 2020-0 Yes [id number] 400mg Take 1 [facility] 400 mg 6-25 [id number] capsule by ity o f capsule 00:00: mouth 3 [place] 00 (three) Medical times Branch daily. omeprazole 2020-0 Yes [id number] 40mg Take 1 [facility] 40 mg 6-25 [id number] capsule by ity of capsule 00:00: mouth [place] 00 every Medical evening. Branch linagliptin 2020-0 Yes [id number] 1{tbl} Take 1 [facility] -metformin 6-25 9101 tablet by ity of 2.5-850 mg 00:00: mouth at [place] Tab 00 bedtime. Medical Branch gabapentin 2020-0 Yes [id number] 400mg Take 1 [facility] 400 mg 6-25 [id number] capsule by ity o f capsule 00:00: mouth 3 [place] 00 (three) Medical times Branch daily. omeprazole 2020-0 Yes [id number] 40mg Take 1 [facility] 40 mg 6-25 [id number] capsule by ity of capsule 00:00: mouth [place] 00 every Medical evening. Branch linagliptin 2020-0 Yes [id number] 1{tbl} Take 1 [facility] -metformin 6-25 9101 tablet by ity of 2.5-850 mg 00:00: mouth at [place] Tab 00 bedtime. Medical Branch gabapentin 2020-0 Yes [id number] 400mg Take 1 [facility] 400 mg 6-25 [id number] capsule by ity o f capsule 00:00: mouth 3 [place] 00 (three) Medical times Branch daily. omeprazole 2020-0 Yes [id number] 40mg Take 1 [facility] 40 mg 6-25 [id number] capsule by ity of capsule 00:00: mouth [place] 00 every Medical evening. Branch linagliptin 2020-0 Yes [id number] 1{tbl} Take 1 [facility] -metformin 6-25 9101 tablet by ity of 2.5-850 mg 00:00: mouth [place] Tab 00 bedtime. Medical Branch gabapentin 2020-0 Yes [id number] 400mg Take 1 [facility] 400 mg 6-25 [id number] capsule by ity o f capsule 00:00: mouth 3 [place] 00 (three) Medical times Branch daily. omeprazole 2020-0 Yes [id number] 40mg Take 1 [facility] 40 mg 6-25 [id number] capsule by ity of capsule 00:00: mouth [place] 00 every Medical evening. Branch linagliptin 2020-0 Yes [id number] 1{tbl} Take 1 [facility] -metformin 6-25 9101 tablet by ity of 2.5-850 mg 00:00: mouth at [place] Tab 00 bedtime. Medical Branch gabapentin 2020-0 Yes [id number] 400mg Take 1 [facility] 400 mg 6-25 [id number] capsule by ity o f capsule 00:00: mouth 3 [place] 00 (three) Medical times Branch daily. omeprazole 2020-0 Yes [id number] 40mg Take 1 [facility] 40 mg 6-25 [id number] capsule by ity of capsule 00:00: mouth [place] 00 every Medical evening. Branch linagliptin 2020-0 Yes [id number] 1{tbl} Take 1 [facility] -metformin 6-25 9101 tablet by ity of 2.5-850 mg 00:00: mouth at [place] Tab 00 bedtime. Medical Branch gabapentin 2020-0 Yes [id number] 400mg Take 1 [facility] 400 mg 6-25 [id number] capsule by ity o f capsule 00:00: mouth 3 [place] 00 (three) Medical times Branch daily. omeprazole 2020-0 Yes [id number] 40mg Take 1 [facility] 40 mg 6-25 [id number] capsule by ity of capsule 00:00: mouth [place] 00 every Medical evening. Branch linagliptin 2020-0 Yes [id number] 1{tbl} Take 1 [facility] -metformin 6-25 9101 tablet by ity of 2.5-850 mg 00:00: mouth at [place] Tab 00 bedtime. Medical Branch gabapentin 2020-0 Yes [id number] 400mg Take 1 [facility] 400 mg 6-25 [id number] capsule by ity o f capsule 00:00: mouth 3 [place] 00 (three) Medical times Branch daily. omeprazole 2020-0 Yes [id number] 40mg Take 1 [facility] 40 mg 6-25 [id number] capsule by ity of capsule 00:00: mouth [place] 00 every Medical evening. Branch linagliptin 2020-0 Yes [id number] 1{tbl} Take 1 [facility] -metformin 6-25 9101 tablet by ity of 2.5-850 mg 00:00: mouth at [place] Tab 00 bedtime. Medical Branch gabapentin 2020-0 Yes [id number] 400mg Take 1 [facility] 400 mg 6-25 [id number] capsule by ity o f capsule 00:00: mouth 3 [place] 00 (three) Medical times Branch daily. omeprazole 2020-0 Yes [id number] 40mg Take 1 [facility] 40 mg 6-25 [id number] capsule by ity of capsule 00:00: mouth [place] 00 every Medical evening. Branch linagliptin 2020-0 Yes [id number] 1{tbl} Take 1 [facility] -metformin 6-25 9101 tablet by ity of 2.5-850 mg 00:00: mouth at [place] Tab 00 bedtime. Medical Branch gabapentin 2020-0 Yes [id number] 400mg Take 1 [facility] 400 mg 6-25 [id number] capsule by ity o f capsule 00:00: mouth 3 [place] 00 (three) Medical times Branch daily. omeprazole 2020-0 Yes [id number] 40mg Take 1 [facility] 40 mg 6-25 [id number] capsule by ity of capsule 00:00: mouth [place] 00 every Medical evening. Branch linagliptin 2020-0 Yes [id number] 1{tbl} Take 1 [facility] -metformin 6-25 9101 tablet by ity of 2.5-850 mg 00:00: mouth at [place] Tab 00 bedtime. Medical Branch gabapentin 2020-0 Yes [id number] 400mg Take 1 [facility] 400 mg 6-25 [id number] capsule by ity o f capsule 00:00: mouth 3 [place] 00 (three) Medical times Branch daily. omeprazole 2020-0 Yes [id number] 40mg Take 1 [facility] 40 mg 6-25 [id number] capsule by ity of capsule 00:00: mouth [place] 00 every Medical evening. Branch linagliptin 2020-0 Yes [id number] 1{tbl} Take 1 [facility] -metformin 6-25 9101 tablet by ity of 2.5-850 mg 00:00: mouth at [place] Tab 00 bedtime. Medical Branch gabapentin 2020-0 Yes [id number] 400mg Take 1 [facility] 400 mg 6-25 [id number] capsule by ity o f capsule 00:00: mouth 3 [place] 00 (three) Medical times Branch daily. omeprazole 2020-0 Yes [id number] 40mg Take 1 [facility] 40 mg 6-25 [id number] capsule by ity of capsule 00:00: mouth [place] 00 every Medical evening. Branch linagliptin 2020-0 Yes [id number] 1{tbl} Take 1 [facility] -metformin 6-25 9101 tablet by ity of 2.5-850 mg 00:00: mouth at [place] Tab 00 bedtime. Medical Branch gabapentin 2020-0 Yes [id number] 400mg Take 1 [facility] 400 mg 6-25 [id number] capsule by ity o f capsule 00:00: mouth 3 [place] 00 (three) Medical times Branch daily. omeprazole 2020-0 Yes [id number] 40mg Take 1 [facility] 40 mg 6-25 [id number] capsule by ity of capsule 00:00: mouth [place] 00 every Medical evening. Branch linagliptin 2020-0 Yes [id number] 1{tbl} Take 1 [facility] -metformin 6-25 9101 tablet by ity of 2.5-850 mg 00:00: mouth at [place] Tab 00 bedtime. Medical Branch gabapentin 2020-0 Yes [id number] 400mg Take 1 [facility] 400 mg 6-25 [id number] capsule by ity o f capsule 00:00: mouth 3 [place] 00 (three) Medical times Branch daily. omeprazole 2020-0 Yes [id number] 40mg Take 1 [facility] 40 mg 6-25 [id number] capsule by ity of capsule 00:00: mouth [place] 00 every Medical evening. Branch linagliptin 2020-0 Yes [id number] 1{tbl} Take 1 [facility] -metformin 6-25 9101 tablet by ity of 2.5-850 mg 00:00: mouth at [place] Tab 00 bedtime. Medical Branch gabapentin 2020-0 Yes [id number] 400mg Take 1 [facility] 400 mg 6-25 [id number] capsule by ity o f capsule 00:00: mouth 3 [place] 00 (three) Medical times Branch daily. omeprazole 2020-0 Yes [id number] 40mg Take 1 [facility] 40 mg 6-25 [id number] capsule by ity of capsule 00:00: mouth [place] 00 every Medical evening. Branch linagliptin 2020-0 Yes [id number] 1{tbl} Take 1 [facility] -metformin 6-25 9101 tablet by ity of 2.5-850 mg 00:00: mouth at [place] Tab 00 bedtime. Medical Branch gabapentin 2020-0 Yes [id number] 400mg Take 1 [facility] 400 mg 6-25 [id number] capsule by ity o f capsule 00:00: mouth 3 [place] 00 (three) Medical times Branch daily. omeprazole 2020-0 Yes [id number] 40mg Take 1 [facility] 40 mg 6-25 [id number] capsule by ity of capsule 00:00: mouth [place] 00 every Medical evening. Branch linagliptin 2020-0 Yes [id number] 1{tbl} Take 1 [facility] -metformin 6-25 9101 tablet by ity of 2.5-850 mg 00:00: mouth at [place] Tab 00 bedtime. Medical Branch gabapentin 2020-0 Yes [id number] 400mg Take 1 [facility] 400 mg 6-25 [id number] capsule by ity o f capsule 00:00: mouth 3 [place] 00 (three) Medical times Branch daily. omeprazole 2020-0 Yes [id number] 40mg Take 1 [facility] 40 mg 6-25 [id number] capsule by ity of capsule 00:00: mouth [place] 00 every Medical evening. Branch linagliptin 2020-0 Yes [id number] 1{tbl} Take 1 [facility] -metformin 6-25 9101 tablet by ity of 2.5-850 mg 00:00: mouth at [place] Tab 00 bedtime. Medical Branch gabapentin 2020-0 Yes [id number] 400mg Take 1 [facility] 400 mg 6-25 [id number] capsule by ity o f capsule 00:00: mouth 3 [place] 00 (three) Medical times Branch daily. omeprazole 2020-0 Yes [id number] 40mg Take 1 [facility] 40 mg 6-25 [id number] capsule by ity of capsule 00:00: mouth [place] 00 every Medical evening. Branch linagliptin 2020-0 Yes [id number] 1{tbl} Take 1 [facility] -metformin 6-25 9101 tablet by ity of 2.5-850 mg 00:00: mouth at [place] Tab 00 bedtime. Medical Branch gabapentin 2020-0 Yes [id number] 400mg Take 1 [facility] 400 mg 6-25 [id number] capsule by ity o f capsule 00:00: mouth 3 [place] 00 (three) Medical times Branch daily. omeprazole 2020-0 Yes [id number] 40mg Take 1 [facility] 40 mg 6-25 [id number] capsule by ity of capsule 00:00: mouth [place] 00 every Medical evening. Branch linagliptin 2020-0 Yes [id number] 1{tbl} Take 1 [facility] -metformin 6-25 9101 tablet by ity of 2.5-850 mg 00:00: mouth at [place] Tab 00 bedtime. Medical Branch gabapentin 2020-0 Yes [id number] 400mg Take 1 [facility] 400 mg 6-25 [id number] capsule by ity o f capsule 00:00: mouth 3 [place] 00 (three) Medical times Branch daily. omeprazole 2020-0 Yes [id number] 40mg Take 1 [facility] 40 mg 6-25 [id number] capsule by ity of capsule 00:00: mouth [place] 00 every Medical evening. Branch linagliptin 2020-0 Yes [id number] 1{tbl} Take 1 [facility] -metformin 6-25 9101 tablet by ity of 2.5-850 mg 00:00: mouth at [place] Tab 00 bedtime. Medical Branch ferrous 2020-0 Yes [id number] 324mg Take 1 Un martha gluconate 6-25 tablet by ity o f 324 mg 00:00: mouth [place] (37.5 mg 00 every Medical iron) other day. Branch tablet gabapentin 2020-0 Yes [id number] 400mg Take 1 [facility] 400 mg 6-25 [id number] capsule by ity o f capsule 00:00: mouth 3 [place] 00 (three) Medical times Branch daily. omeprazole 2020-0 Yes [id number] 40mg Take 1 [facility] 40 mg 6-25 [id number] capsule by ity of capsule 00:00: mouth [place] 00 every Medical evening. Branch acetaminoph 2020-0 Yes [id number] 1{tbl} Take 1 [facility] en-codeine 6-25 [id number] tablet by it y of 300-30 mg 00:00: mouth [place] tablet 00 every 6 Medical (six) Branch hours as needed for Pain (scale 7-10). traMADol 50 2020-0 Yes [id number] 50mg Take 1 [facility] mg tablet 6-25 [id number] tablet by ity of 00:00: mouth [place] 00 every 6 Medical (six) Branch hours as needed for Pain (scale 4-6). linagliptin 2020-0 Yes [id number] 1{tbl} Take 1 [facility] -metformin 6-25 9101 tablet by ity of 2.5-850 mg 00:00: mouth at [place] Tab 00 bedtime. Medical Branch acetaminoph 2019-0 2020- No [id number] 650mg Take 2 [facility] en 325 mg 6-25 - [id number] tablets by i ty of tablet 00:00: 04:59 mouth [place] 00 :00 every 6 Medical (six) Branch hours. acetaminoph 2019-0 2020- No [id number] 650mg Take 2 [facility] en 325 mg 6-25 - [id number] tablets by i ty of tablet 00:00: 04:59 mouth [place] 00 :00 every 6 Medical (six) Branch hours. acetaminoph 2020- No [id number] 650mg Take 2 [facility] en 325 mg 6-25 - [id number] tablets by i ty of tablet 00:00: 04:59 mouth [place] 00 :00 every 6 Medical (six) Branch hours. acetaminoph 2020- No [id number] 650mg Take 2 [facility] en 325 mg -15 09- [id number] tablets by i ty of tablet 00:00: 04:59 mouth [place] 00 :00 every 6 Medical (six) Branch hours. acetaminoph 2020- No [id number] 650mg Take 2 [facility] en 325 mg 6-15 09- [id number] tablets by i ty of tablet 00:00: 04:59 mouth [place] 00 :00 every 6 Medical (six) Branch hours. acetaminoph 2020- No [id number] 650mg Take 2 [facility] en 325 mg -15 09- [id number] tablets by i ty of tablet 00:00: 04:59 mouth [place] 00 :00 every 6 Medical (six) Branch hours. acetaminoph 2020- No [id number] 650mg Take 2 [facility] en 325 mg 09-15 [id number] tablets by i ty of tablet 00:00: 04:59 mouth [place] 00 :00 every 6 Medical (six) Branch hours. acetaminoph 2020- No [id number] 650mg Take 2 [facility] en 325 mg 09-15- [id number] tablets by i ty of tablet 00:00: 04:59 mouth [place] 00 :00 every 6 Medical (six) Branch hours. acetaminoph 2020- No [id number] 650mg Take 2 [facility] en 325 mg 09-15- [id number] tablets by i ty of tablet 00:00: 04:59 mouth [place] 00 :00 every 6 Medical (six) Branch hours. acetaminoph 2020- No [id number] 650mg Take 2 [facility] en 325 mg -15 09- [id number] tablets by i ty of tablet 00:00: 04:59 mouth [place] 00 :00 every 6 Medical (six) Branch hours. acetaminoph 2020- No [id number] 650mg Take 2 [facility] en 325 mg -15 09- [id number] tablets by i ty of tablet 00:00: 04:59 mouth [place] 00 :00 every 6 Medical (six) Branch hours. acetaminoph 2020- No [id number] 650mg Take 2 [facility] en 325 mg 6-15 09- 013832 tablets by i ty of tablet 00:00: 04:59 mouth [place] 00 :00 every 6 Medical (six) Branch hours. ferrous 2020-0 2020- No [id number] 324mg Take 1 U nivers gluconate 09-15 tablet by ity of 324 mg 00:00: 00:00 mouth [place] (37.5 mg 00 :00 every Medical iron) other day. Branch tablet acetaminoph 2019- 2020- No [id number] 650mg Take 2 [facility] en 325 mg 09-15 [id number] tablets by i ty of tablet 00:00: 00:00 mouth [place] 00 :00 every 6 Medical (six) Branch hours. acetaminoph 2019- 2020- No [id number] 1{tbl} Take 1 [facility] en-codeine 09-15 [id number] tablet by i ty of 300-30 mg 00:00: 00:00 mouth [place] tablet 00 :00 every 6 Medical (six) Branch hours as needed for Pain (scale 7-10). traMADol 50 2019- 2020- No [id number] 50mg Take 1 [facility] mg tablet 09-15 [id number] tablet by it y of 00:00: 00:00 mouth [place] 00 :00 every 6 Medical (six) Branch hours as needed for Pain (scale 4-6). NaCl 0.9% 0 2020- No [id number] 1g Infuse 1 g Univers (NS) PgBk 09-15 [id number] every 24 ity of 50 mL with 00:00: 04:59 (twenty-fo ertapenem 1 00 :00 ur) hours Med ical gram SolR 1 for 33 Branch g days. NaCl 0.9% 0 2020- No [id number] 1g Infuse 1 g Univers (NS) PgBk 09-15 [id number] every 24 ity of 50 mL with 00:00: 04:59 (twenty-fo [place] ertapenem 1 00 :00 ur) hours Med ical gram SolR 1 for 33 Branch g days. NaCl 0.9% 0 2020- No [id number] 1g Infuse 1 g Univers (NS) PgBk 09-15 [id number] every 24 ity of 50 mL with 00:00: 04:59 (twenty-fo [place] ertapenem 1 00 :00 ur) hours Med ical gram SolR 1 for 33 Branch g days. NaCl 0.9% 2020-0 2020- No [id number] 1g Infuse 1 g Univers (NS) PgBk 09-15 [id number] every 24 ity of 50 mL with 00:00: 04:59 (twenty-fo [place] ertapenem 1 00 :00 ur) hours Med ical gram SolR 1 for 33 Branch g days. NaCl 0.9% 2020-0 2020- No [id number] 1g Infuse 1 g Univers (NS) PgBk 09-15 [id number] every 24 ity of 50 mL with 00:00: 04:59 (twenty-fo [place] ertapenem 1 00 :00 ur) hours Med ical gram SolR 1 for 33 Branch g days. NaCl 0.9% 2020-0 2020- No [id number] 1g Infuse 1 g Univers (NS) PgBk 09-15 [id number] every 24 ity of 50 mL with 00:00: 04:59 (twenty-fo [place] ertapenem 1 00 :00 ur) hours Med ical gram SolR 1 for 33 Branch g days. NaCl 0.9% 2020-0 2020- No [id number] 1g Infuse 1 g Univers (NS) PgBk 09-15 [id number] every 24 ity of 50 mL with 00:00: 04:59 (twenty-fo [place] ertapenem 1 00 :00 ur) hours Med ical gram SolR 1 for 33 Branch g days. NaCl 0.9% 2020-0 2020- No [id number] 1g Infuse 1 g Univers (NS) PgBk 09-15 [id number] every 24 ity of 50 mL with 00:00: 04:59 (twenty-fo [place] ertapenem 1 00 :00 ur) hours Med ical gram SolR 1 for 33 Branch g days. gabapentin 2020-0 Yes 400mg 400 mg, Uni vers (NEURONTIN) 6-24 Oral, TID, it y of capsule 400 01:00: First dose [place] mg 00 on [facility] 09/14/19 at [place] 1999, Until Discontinu ed, Routine HYDROcodone 2020-0 2020- No 1{tbl} 1 tablet, Univers -acetaminop 09-13- Oral, ity of hen (NORCO 15:30: 14:37 ONCE, 1 [place] 5) 5-325 mg 00 :00 dose, Tue Med ical tablet 1 09/14/19 at [facility] h tablet 1030, Routine HYDROcodone 2020-0 2020- No 1{tbl} 1 tablet, Univers -acetaminop 09-11 06-21 Oral, ity of hen (NORCO 20:45: 22:55 ONCE, 1 [place] 5) 5-325 mg 00 :00 dose, Sun Med ical tablet 1 09/12/19 at [facility] h tablet 1545, Routine Sliding 2020-0 Yes Subcutaneo Univ ers Scale 6-21 us, Q4H, ity of Insulin - 18:00: First dose [place] Aspart 00 on [facility] (NOVOLOG) + 09/12/19 at [facility] 1300, Testing Until Discontinu ed, Routine acetaminoph 2020-0 Yes 1{tbl} 1 tablet, Univers en-codeine 09-11 Oral, ity of (TYLENOL 12:30: Q6HPRN, [place] #3) 300-30 00 Starting Medic al mg tablet 1 Pending [facility] To [facility] tablet 09/12/19 at 0730, Until Discontinu ed, Routine, Pain (scale 7-10) traMADol 2020-0 Yes 50mg 50 mg, Univers (ULTRAM) 09-11 Oral, ity of tablet 50 12:27: Q6HPRN, [place] mg 52 Starting Medical [place] Branch 09/12/19 at 0727, Until Discontinu ed, Routine, Pain (scale 4-6) Sliding 2020-0 2020- No Subcutaneo Uni vers Scale 6-10 09- us, Q4H, ity of Insulin - 21:00: 17:48 First dose [place] Aspart 00 :45 on [facility] (NOVOLOG) + 09/11/19 at [facility] 1600, Testing Until Discontinu ed, Routine gabapentin 2020-0 2020- No 300mg 300 mg, Un martha (NEURONTIN) 09-09 Oral, TID, i ty of capsule 300 19:00: 21:49 First dose [place] mg 00 :29 on Fri Medical 09/10/19 at Branch 1400, Until Discontinu ed, Routine morpHINE 2020-0 2020- No 4mg 4 mg, Slow Un martha injection 4 09-09 IV Push, ity of mg 10:30: 09:36 ONCE, 1 [place] 00 :00 dose, Fri Medical 09/10/19 at Branch 0530, Routine clopidogreL 2019- Yes 75mg 75 mg, Univ ers (PLAVIX) 09-08 Oral, ity of tablet 75 14:00: DAILY, [place] mg 00 First dose Medical on [place] Branch 09/09/19 at 0900, Until Discontinu ed, Routine acetaminoph 2019- No 1{tbl} 1 tablet, Univers en-codeine 09-08 Oral, ity of (TYLENOL 06:14: 12:28 Q4HPRN, [place] #3) 300-30 42 :29 Starting Medic al mg tablet 1 [facility] tablet 09/09/19 at 0114, Until 09/12/19 at 0728, Routine, Pain (scale 4-6) traMADol 2019- No 50mg 50 mg, Univer s (ULTRAM) 09-08 Oral, ity of tablet 50 06:14: 12:28 Q6HPRN, [place] mg 12 :29 Starting Medical [facility] Branch 09/09/19 at 0114, Until 09/12/19 at 0728, Routine, Pain (scale 7-10) vancomycin 2019- No 15mg/kg 1,000 mg Univers (VANCOCIN) 09-08 (rounded ity of 1,000 mg in 02:30: 14:58 from 960 [place] NaCl 0.9% 00 :18 mg = 15 Medical (NS) 250 mL mg/kg ?64 [facility] VIAL-MATE kg), IV IV Piggyback, piggyback Q12H ABX, First dose on [facility] 09/08/19 at 2130, Until Discontinu ed, 250 mL
Reas on for Anti-Infec tive: Empiric Therapy for Suspected Infection< br>Empiric Therapy Site: Respirator y
Durat ion of therapy: 72 hours clopidogreL 2019- No 150mg 150 mg, U nivers (PLAVIX) 09-08 Oral, ity of tablet 150 00:30: 00:58 ONCE, 1 [place] mg 00 :00 dose, Fri Medical 09/08/19 at Branch 1930, Routine alteplase Yes PRN, Univers (TPA) 09-07 Starting ity of (ACTIVASE) 20:35: Wed [place] syringe 00 09/08/19 at Medica l 1535, [place] Until Discontinu ed, Routine, Intra-op lidocaine Yes PRN, Univers 1% (PF) 09-07 Starting ity of (XYLOCAINE) 18:01: Fri [place] injection 00 09/08/19 at [facility] 1301, [place] Until Discontinu ed, Routine, Intra-op heparin Yes PRN, Univers 1,000 09-07 Starting ity of unit/mL 17:48: Wed [place] 10,000 00 09/08/19 at Medical Units in 1248, [place] NaCl 0.9% Intra-op (NS) 1,000 mL OR irrigation ertapenem Yes 1000mg 1,000 mg, U nivers (INVANZ) 09-06 IV ity of 1,000 mg in 22:45: Piggyback, [place] NaCl 0.9% 00 Q24H ABX, Medic al (NS) 50 mL First dose [facility] MINI-BAG on Fri09/07/19 at 1745, Until Discontinu ed, 50 mL
R gabe for Anti-Infec tive: Documented Infection< br>Documen sapna Infection Site: Blood<br&g t;Duration of Therapy: 7 days
Re stricted use approved by: TUYET HUTCHISON, ADULT ID micafungin 2019- No 100mg 100 mg, IV Univers (MYCAMINE) 09-06 Piggyback, it y of 100 mg in 22:45: 15:55 Q24H ABX, [place] NaCl 0.9% 00 :02 First dose [facility] (NS) 100 mL on [facility] MINI-BAG 09/07/19 at 1745, Until Discontinu ed, 100 mL
R estricted use approved by: TUYET HUTCHISON, ADULT ID
Reas on for Anti-Infec tive: Documented Infection< br>Documen sapna Infection Site: Bone
Du ration of Therapy: 7 days midazolam 0 2020- No IV Push, Uni vers (VERSED) 09-0616 PRN, ity of injection 19:35: 19:35 Starting [place] 44 :56 Tu Medical 09/07/19 at Branch 1435, Until Discontinu ed, Routine ondansetron 2020-0 Yes 4mg 4 mg, Slow Univers (ZOFRAN 6-16 IV Push, ity of (PF)) 18:37: Q8HPRN, [place] injection 4 37 Starting Medi bharat mg [facility] 09/07/19 at 1337, Until Discontinu ed, Routine, Nausea and Vomiting (N/V) lidocaine 2020-0 2020- No PRN, Univers 1% (PF) 09-01 Starting ity of (XYLOCAINE) 16:20: 16:20 [place] injection 44 :44 09/02/19 at [facility] 1120, Branch Until Discontinu ed, Routine FENTanyl PF 2020-0 2020- No Slow IV Un martha (SUBLIMAZE 09-01 Push, PRN, it y of (PF)) 16:19: 16:19 Starting [place] injection 10 :10 [place] Medical 09/02/19 at Branch 1119, Until Discontinu ed, Routine omeprazole 2020-0 Yes 40mg 40 mg, Unive rs (PRILOSEC) 6-10 Oral, QPM, ity of capsule 40 22:00: First dose [place] mg 00 on [facility] 09/01/19 at Branch 1700, Until Discontinu ed, Routine lidocaine 2020-0 2020- No 5mL 5 mL, Univer s 1% (PF) 08-31 Infiltrati ity o f (XYLOCAINE) 19:51: 20:00 on, ONCE, [place] injection 5 00 :00 1 dose, Medic al mL [facility] 09/01/19 at 1500, Routine acetaminoph 2020-0 Yes 650mg 650 mg, Un martha en 6-10 Oral, Q6H, ity of (TYLENOL) 17:00: First dose [place] tablet 650 00 on Fri Medical mg 09/01/19 at Branch 1200, Until Discontinu ed, Routine sennosides- 2020-0 Yes 1{tbl} 1 tablet, Univers docusate 6-10 Oral, BID, ity o f sodium 15:15: First dose [place] (SENOKOT S) 00 on Fri Medica l 8.6-50 mg 09/01/19 at [facility] per tablet 1015, 1 tablet Until Discontinu ed, Routine Polyethylen 2020-0 Yes 17g 17 g, Unive rs e Glycol 6-10 Oral, ity of 3350 15:15: DAILY, [place] (MIRALAX) 00 First dose Medi bharat powder 17 g on Fri09/01/19 at 1015, Until Discontinu ed, Routine ferrous 2020-0 Yes 325mg 325 mg, Univer s sulfate 6-10 Oral, Q ity of tablet 325 14:00: OTHERDAY, [place] mg 00 First dose Medical on Fri09/01/19 at 0900, Until Discontinu ed, Routine aspirin 2020-0 2020- No 81mg 81 mg, Univers chewable 08-31 Oral, ity of tablet 81 14:00: 16:39 DAILY, [place] mg 00 :27 First dose Medical on Fri09/01/19 at 0900, Until Discontinu ed, Routine omeprazole 2020-0 2020- No 40mg 40 mg, Univ ers (PRILOSEC) 08-31 Oral, ity of capsule 40 14:00: 18:39 DAILY, [place] mg 00 :03 First dose Medical on Fri09/01/19 at 0900, Until Discontinu ed, Routine phenol 2020-0 Yes 1{spray 1 [place], Univ ers (SORE 08-31 } Oral, PRN, ity of THROAT 13:58: Starting [place] (PHENOL)) 44 Fri Medical 1.4 % spray 09/01/19 at Br anch bottle 1 0860, [place] Until Discontinu ed, Routine, Sore throat gadoteridol 2020-0 2020- No .2mL/kg 12.3 mL Univers (PROHANCE-1 08-31 (0.2 mL/kg i ty of 5 mL) 04:15: 04:15 ?61.5 kg), [place] injection 00 :00 Intravenou Medi bharat 12.3 mL s, ONCE, 1 Branch dose, Fri08/31/19 at 2315, Routine pravastatin 2020-0 Yes 40mg 40 mg, Univ ers (PRAVACHOL) 6-10 Oral, QHS, it y of tablet 40 02:00: First dose [place] mg 00 on Fri Medical 08/31/19 at Branch 2100, Until Discontinu ed, Routine piperacilli 2020-0 2020- No 2.25g 2.25 g, IV Univers n-tazobacta 08-30- Piggyback, i ty of m (ZOSYN) 22:00: 21:59 Q6H ABX, [place] 2.25 g/50 00 :09 First dose Medi bharat mL RTU on [facility] 08/31/19 at 1700, Until Discontinu ed, 50 mL
Reas on for Anti-Infec tive: Empiric Therapy for Suspected Infection< br>Empiric Therapy Site: Skin / Soft tissue
Duration of therapy: 7 days lactated 2019-0 2020- No 500mL at 999 [facility] [place] [facility] rs ringers IV 08-30 mL/hr, 500 it y of infusion 14:15: 15:02 mL, IV [place] 500 mL 00 :00 Infusion, Medical ONCE, 1 Branch dose, [facility] 08/31/19 at 0915, STAT tamsulosin 2019-0 Yes .4mg 0.4 mg, [facility] ers (FLOMAX) 08-30 Oral, ity of capsule 0.4 14:00: DAILY, [place] 00 First dose Medical on [facility] 08/31/19 at 0900, Until Discontinu ed, Routine furosemide 2019- 2020- No 20mg 20 mg, [facility] ers (LASIX) 08-30 Slow IV ity of injection 13:15: 14:35 Push, [place] 20 mg 00 :00 ONCE, 1 Medical dose, [facility] 08/31/19 at 0815, STAT metoprolol 2019-0 Yes 25mg 25 mg, [facility] [place] [facility] rs tartrate 08-30 Oral, ity of (LOPRESSOR) 13:00: Q12H, [place] tablet 25 00 First dose Medi bharat mg on [facility] 08/31/19 at 0800, Until Discontinu ed, Routine cilostazoL 2019-0 Yes 100mg 100 mg, Uni vers (PLETAL) 08-30 Oral, BID ity of tablet 100 13:00: MEALS, [place] mg 00 First dose Medical on [facility] 08/31/19 at 0800, Until Discontinu ed, Routine Sliding 2019-0 2020- No Subcutaneo Uni vers Scale 08-30 us, TID ity of Insulin - 13:00: 17:24 MEALS+HS, [place] Aspart 00 :02 First dose Medical (NOVOLOG) + on [facility] Fsbg 08/31/19 at Testing 0800, Until Discontinu ed, Routine gabapentin 2020-0 2020- No 200mg 200 mg, Un martha (NEURONTIN) 08-30 Oral, TID, i ty of capsule 200 13:00: 15:26 First dose [place] mg 00 :34 on [facility] Medical 08/31/19 at Branch 0800, Until Discontinu ed, Routine NaCl 0.9% 2020-0 2020- No 500mL at 999 Univ ers (NS) bolus 08-30- mL/hr, 500 it y of infusion 06:00: 05:09 mL, IV [place] 500 mL 00 :00 Piggyback, Medical ONCE, 1 Branch dose, [facility] 08/31/19 at 0100, STAT NaCl 0.9% 2020-0 2020- No 1000mL at 100 Uni vers (NS) IV 08-30 mL/hr, IV ity of infusion 05:45: 13:10 Infusion, [place] 1,000 mL 00 :48 CONTINUOUS Medic al , Starting Branch [facility] 08/31/19 at 0045, Until [facility] 08/31/19 at 0810, Routine glucagon 2020-0 Yes 1mg 1 mg, Univers (GLUCAGEN 08-30 Intravenou ity of DIAGNOSTIC 04:35: s, PRN - [place] as KIT) 41 SEE Medical injection 1 INSTRUCTIO Br anch mg NS, Starting 08/30/19 at 2335, Until Discontinu ed, Routine, BG<70 glucagon 2020-0 Yes 1mg 1 mg, Univers (GLUCAGEN 08-30 Intramuscu ity of DIAGNOSTIC 04:35: lar, PRN, [place] KIT) 37 Starting Medical injection 1 Mon 08/30/19 Br anch mg at 2335, Until Discontinu ed, ONESIMO, Blood Glucose < or = 70 mg/dL and patient is unable to swallow or has mental changes. pantoprazol 2020-0 2020- No 40mg 40 mg, Uni vers e 08-30 Oral, ity of (PROTONIX) 04:15: 13:07 DAILY, [place] EC tablet 00 :31 First dose Medi bharat 40 mg on [facility] Branch 08/30/19 at 2315, Until Discontinu ed, Routine maalox:diph 2020-0 2020- No 15mL 15 mL, Uni vers enhydrAMINE 08-30 Oral, ity of :lidocaine 04:14: 05:34 ONCE, 1 [place] as 2 % viscous 00 :00 dose, Mon Med ical 1:1:1 08/30/19 at [place] (FIRST-MOUT 2315, HWASH BLM) Routine oral suspension 15 mL acetaminoph 2019- 2020- No 1{tbl} 1 tablet, Univers en-codeine 08-30 Oral, ity of (TYLENOL 04:13: 06:15 Q4HPRN, [place] #3) 300-30 50 :06 Starting Medic al mg tablet 1 Mon 08/30/19 Br anch tablet at 2313, Until [place] 09/09/19 at 0115, Routine, Pain (scale 7-10) vancomycin 2019- 2020- No 15mg/kg 1,000 mg Univers 1000 mg in 08-30 (rounded ity of NS 200 mL 02:15: 02:32 from [place] RTU IV 00 :00 1,033.5 mg Medical Piggyback = 15 mg/kg Bran ch 1,000 mg ?68.9 kg), IV Piggyback, ONCE, 1 dose, [facility] 08/30/19 at 2115
Re ason for Anti-Infec tive: Empiric Therapy for Suspected Infection< br>Empiric Therapy Site: Skin / Soft tissue
Duration of therapy: 72 hours ondansetron 2019-0 2020- No 4mg 4 mg, Slow Univers (ZOFRAN 08-30 IV Push, ity of (PF)) 02:00: 01:25 ONCE, 1 [place] injection 4 00 :00 dose, [facility] Med ical mg 08/30/19 at [place] 2100, ONESIMO morpHINE 2019-0 2019- No 4mg 4 mg, Slow Un martha injection 4 08-30 IV Push, ity of mg 02:00: 01:25 ONCE, 1 [place] 00 :00 dose, [facility] Medical 08/30/19 at [place] 2100, STAT LINAGLIPTIN 2020-0 Yes Take by Uni vers -METFORMIN 5-25 mouth at ity o f 2.5-850 mg 23:12: bedtime. Kv[place] as Tab [address] [place] [address] clopidogreL 2020-0 Yes 75mg Take 75 mg Univers 75 mg 5-25 by mouth ity of tablet 23:12: daily. [address] LINAGLIPTIN 2020-0 Yes Take by Uni vers -METFORMIN 5-25 mouth at ity o f 2.5-850 mg 23:12: bedtime. Kv[place] as Tab [address] [place] [address] clopidogreL 2020-0 Yes 75mg Take 75 mg Univers 75 mg 5-25 by mouth ity of tablet 23:12: daily. [address] iron 2019-0 2020- No 25mg 25 mg, IV Univers dextran 5-25 05-25 Piggyback, ity o f (INFED) 25 18:15: 18:49 ONCE, 1 [place] as mg in NaCl 00 :00 dose, [facility] Medi bharat 0.9% (NS) 08/16/19 at Bran ch 100 mL IV 1315, 100 piggyback mL iron 2019- No 1000mg 1,000 mg, Unive rs dextran 5-25 05-25 IV ity of (INFED) 18:15: 20:18 Infusion, [place] 1,000 mg in 00 :00 ONCE, 1 Medic al NaCl 0.9% dose, [facility] Branc h (NS) 500 mL 08/16/19 at IV infusion 1315, 500 mL ferrous 2019-0 Yes 324mg 324 mg, Univer s gluconate 5-25 Oral, TID ity o f tablet 324 17:00: MEALS, [place] mg 00 First dose Medical on [facility] 08/16/19 at 1200, Until Discontinu ed, Routine sennosides- 2019-0 Yes 1{tbl} 1 tablet, Univers docusate 5-25 Oral, ity of sodium 14:00: DAILY, [place] (SENOKOT S) 00 First dose Me dical 8.6-50 mg on [facility] per tablet 08/16/19 at 1 tablet 0900, Until Discontinu ed, Routine ferrous 2019-0 2020- No [id number] 324mg Take 1 U nivers gluconate 5-25 06-25 tablet by ity of 324 mg 00:00: 04:59 mouth 3 [place] (37.5 mg 00 :00 (three) Medical iron) times [place] tablet daily with meals for 30 days. ferrous 2020-0 2020- No [id number] 324mg Take 1 U nivers gluconate 5-25 06-25 tablet by ity of 324 mg 00:00: 04:59 mouth 3 [place] (37.5 mg 00 :00 (three) Medical iron) times Branch tablet daily with meals for 30 days. ferrous 2020-0 2020- No [id number] 324mg Take 1 U nivers gluconate 5-25 06-25 tablet by ity of 324 mg 00:00: 00:00 mouth 3 [place] (37.5 mg 00 :00 (three) Medical iron) times Branch tablet daily with meals for 30 days. cephALEXin 2020-0 2020- No [id number] 500mg Take 1 Univers 500 mg 5-25 05-28 capsule by ity of capsule 00:00: 04:59 mouth 4 [place] 00 :00 (four) Medical times Branch daily for 2 days. cephALEXin 2020-0 2020- No [id number] 500mg Take 1 Univers 500 mg 5-25 05-28 capsule by ity of capsule 00:00: 04:59 mouth 4 [place] 00 :00 (four) Medical times Branch daily for 2 days. piperacilli 2020-0 Yes 3.375g 3.375 g, Univers n-tazobacta 5-23 IV ity of m (ZOSYN) 20:45: [place]gyback, [place] 3.375 00 Q6H ABX, Medical gram/50 mL First dose [facility] Piggyback on Sat RTU 3.375 g 08/14/19 at 1545, Until Discontinu ed, 50 mL
R gabe for Anti-Infec tive: Documented Infection< br>Documen sapna Infection Site: Skin / Soft Tissue
Duration of Therapy: 7 days furosemide 2020-0 Yes 20mg 20 mg, Unive rs (LASIX) 5-23 Oral, ity of tablet 20 14:00: DAILY, [place] mg 00 First dose Medical on [facility] Branch 08/14/19 at 0900, Until Discontinu ed, Routine enalapril 2020-0 Yes 5mg 5 mg, Univers (VASOTEC) 5-23 Oral, ity of tablet 5 mg 14:00: DAILY, [place] 00 First dose Medical on [facility] 08/14/19 at 0900, Until Discontinu ed, Routine clopidogreL 2020-0 Yes 75mg 75 mg, Univ ers (PLAVIX) 5-23 Oral, ity of tablet 75 14:00: DAILY, [place] mg 00 First dose Medical on [facility] Branch 08/14/19 at 0900, Until Discontinu ed, Routine aspirin 2020-0 Yes 81mg 81 mg, Univers chewable 08-13 Oral, ity of tablet 81 14:00: DAILY, [place] mg 00 First dose Medical on [facility] Branch 08/14/19 at 0900, Until Discontinu ed, Routine cilostazoL 2020-0 Yes 100mg 100 mg, Uni vers (PLETAL) - Oral, BID ity of tablet 100 13:00: MEALS, [place] mg 00 First dose Medical on [facility] Branch 08/14/19 at 0800, Until Discontinu ed, Routine vancomycin 2020-0 Yes 15mg/kg 1,000 mg Univers 1000 mg in 08-13 (rounded ity o f NS 200 mL 09:00: from [place] RTU IV 00 1,054.5 mg Medical Piggyback = 15 mg/kg Bran ch 1,000 mg ?70.3 kg), IV Piggyback, Q12H ABX, First dose on [facility] 08/14/19 at 0400, Until Discontinu ed
Reas on for Anti-Infec tive: Empiric Therapy for Suspected Infection< br>Empiric Therapy Site: Skin / Soft tissue
Duration of therapy: 7 days Sliding 2020-0 Yes Subcutaneo Univ ers Scale 5-23 us, TID ity of Insulin - 02:00: MEALS+HS, [place] Aspart 00 First dose Medical (NOVOLOG) + on Fri [place] Fsbg 08/13/19 at Testing 2100, Until Discontinu ed, Routine pravastatin 2020-0 Yes 40mg 40 mg, Univ ers (PRAVACHOL) - Oral, QHS, it y of tablet 40 02:00: First dose [place] mg 00 on Fri Medical 08/13/19 at Branch 2100, Until Discontinu ed, Routine heparin 2020-0 Yes 5000U 5,000 Univers (porcine) 5-23 Units, ity of injection 01:00: Subcutaneo [place] 5,000 Units 00 us, Q12H, Med ical First dose Branch on Fri08/13/19 at 2000, Until Discontinu ed, Routine Polyethylen 2020-0 Yes 17g 17 g, Unive rs e Glycol - Oral, BID, ity o f 3350 01:00: First dose [place] (MIRALAX) 00 on Fri Medical powder 17 g 08/13/19 at Br anch 2000, Until Discontinu ed, Routine metoprolol 2020-0 Yes 25mg 25 mg, Unive rs tartrate 5-23 Oral, ity of (LOPRESSOR) 01:00: Q12H, [place] tablet 25 00 First dose Medi bharat mg on Fri Branch 08/13/19 at 2000, Until Discontinu ed, Routine gabapentin 2020-0 Yes 100mg 100 mg, Uni vers (NEURONTIN) 5-23 Oral, TID, it y of capsule 100 01:00: First dose [place] mg 00 on Fri Medical 08/13/19 at Branch 2000, Until Discontinu ed, Routine ondansetron 2020-0 Yes 4mg 4 mg, Slow Univers (ZOFRAN - IV Push, ity of (PF)) 23:45: Q6HPRN, [place] injection 4 25 Starting Medi bharat mg Fri Branch 08/13/19 at 1845, Until Discontinu ed, Routine, Nausea and Vomiting (N/V) acetaminoph 2020-0 Yes 650mg 650 mg, Un martha en 5- Oral, ity of (TYLENOL) 23:45: Q6HPRN, [place] tablet 650 19 Starting Medic al mg Fri Branch 08/13/19 at 1845, Until Discontinu ed, Routine, Pain (scale 1-3) dextrose 2020-0 Yes 250mL 250 mL, IV Un martha 10% (D10W) 08-12 Infusion, ity of bolus 23:43: PRN - SEE [place] infusion 31 INSTRUCTIO Medic al 250 mL NS, Branch Hypoglycem ia, Starting Fri08/13/19 at 1843
De xtrose 10% 250 mL bag contains:& nbsp;10 gm = 100 mL 20 gm = 200 mL 25 gm = 250 mL (whole bag) The maximum rate at which dextrose can be infused without producing glycosuria is 0.5 g/kg/hour. &nbs p;BUD: If wrapper is open bag is good for 30 days at room temperatur e. <b r> glucagon 2020-0 Yes 1mg 1 mg, Univers (GLUCAGEN - Intramuscu ity of DIAGNOSTIC 23:43: lar, PRN, [place] KIT) 27 Starting Medical injection 1 Fri Branch mg 08/13/19 at 1843, Until Discontinu ed, ONESIMO, Blood Glucose < or = 70 mg/dL and patient is unable to swallow or has mental changes. traMADol 2020-0 Yes 50mg 50 mg, Univers (ULTRAM) - Oral, ity of tablet 50 23:43: Q8HPRN, [place] mg 15 Starting Medical Fri Branch 08/13/19 at 1843, Until Discontinu ed, Routine, Pain (scale 7-10) ondansetron 2019-0 2019- No 4mg 4 mg, Slow Univers (ZOFRAN 08-12 IV Push, ity of (PF)) 21:00: 20:23 ONCE, 1 [place] injection 4 00 :00 dose, Fri Med ical mg 08/13/19 at Branch 1600, ONESIMO morpHINE 2019-0 2019- No 4mg 4 mg, Slow Un martha injection 4 08-12 IV Push, ity of mg 21:00: 20:23 ONCE, 1 [place] 00 :00 dose, Fri Medical 08/13/19 at Branch 1600, STAT vancomycin 2019-0 2019- No 15mg/kg 1,000 mg Univers 1000 mg in 08-12 (rounded ity of NS 200 mL 21:00: 21:23 from [place] RTU IV 00 :00 1,054.5 mg Medical Piggyback = 15 mg/kg Bran ch 1,000 mg ?70.3 kg), IV Piggyback, ONCE, 1 dose, 08/13/19 at 1600
Re ason for Anti-Infec tive: Documented Infection< br>Documen sapna Infection Site: Skin / Soft Tissue
Duration of Therapy: 7 days LINAGLIPTIN 2020-0 Yes Take by Uni vers -METFORMIN 5-16 mouth at ity o f 2.5-850 mg 23:18: bedtime. Kvng as Tab 19 Medical Branch glipiZIDE 2019-0 Yes 5mg 5 mg, Univers (GLUCOTROL) 5-16 Oral, ity of tablet 5 mg 14:00: QAM+PM, [place] 00 First dose Medical on Sat Branch 08/07/19 at 0900, Until Discontinu ed, Routine pantoprazol 2019-0 Yes 40mg 40 mg, IV U nivers e 5-16 Piggyback, ity of (PROTONIX) 13:00: Q12H, [place] 40 mg in 00 First dose Medic al NaCl 0.9% on [facility] Branch (NS) 100 mL 08/07/19 at MINI-BAG 0800, Until Discontinu ed, 100 mL Sliding 2020-0 Yes Subcutaneo Univ ers Scale 5-16 us, AC+HS, ity of Insulin - 12:30: First dose [place] Aspart 00 on [facility] (NOVOLOG) + 08/07/19 at Br anch Fsbg 0730, Testing Until Discontinu ed, Routine traMADol 2020-0 Yes 50mg 50 mg, Univers (ULTRAM) 5-16 Oral, ity of tablet 50 04:57: Q4HPRN, [place] mg 24 Starting Medical Fri Branch 08/06/19 at 2357, Until Discontinu ed, Routine, Pain (scale 4-6) alum-mag 2020-0 Yes 30mL 30 mL, Univers hydroxide-s 5-16 Oral, ity of imeth 04:34: Q6HPRN, [place] (MAALOX 31 Starting Medical PLUS / Fri Branch MAG-AL 08/06/19 at PLUS) 2334, 200-200-20 Until mg/5 mL Discontinu suspension ed, 30 mL Routine, Indigestio n ondansetron 2020-0 Yes 4mg 4 mg, Slow Univers (ZOFRAN 5-16 IV Push, ity of (PF)) 04:33: Q6HPRN, [place] injection 4 32 Starting Medi bharat mg Fri Branch 08/06/19 at 2333, Until Discontinu ed, Routine, Nausea and Vomiting (N/V) metoprolol 2020-0 Yes 25mg 25 mg, Unive rs tartrate 5-16 Oral, ity of (LOPRESSOR) 01:00: Q12H, [place] tablet 25 00 First dose Medi bharat mg on Fri Branch 08/06/19 at 2000, Until Discontinu ed, Routine gabapentin 2020-0 Yes 100mg 100 mg, Uni vers (NEURONTIN) 5-16 Oral, TID, it y of capsule 100 01:00: First dose [place] mg 00 on Fri Medical 08/06/19 at Branch 1999, Until Discontinu ed, Routine acetaminoph 2020-0 Yes 650mg 650 mg, Un martha en 5-15 Oral, ity of (TYLENOL) 20:48: Q6HPRN, [place] tablet 650 24 Starting Medic al mg Fri Branch 08/06/19 at 1548, Until Discontinu ed, Routine, Pain (scale 1-3) maalox:diph 2019-0 2020- No 15mL 15 mL, Uni vers enhydrAMINE -15 05-16 Oral, ity of :lidocaine 20:30: 01:58 ONCE, 1 [place] 2 % viscous 00 :00 dose, Fri Med ical 1:1:1 08/06/19 at [place] (FIRST-MOUT 1530, ONESIMO HWASH BLM) oral suspension 15 mL ondansetron 2019-0 2020- No 4mg 4 mg, Slow Univers (ZOFRAN 5- 05-15 IV Push, ity of (PF)) 20:00: 19:01 ONCE, 1 [place] injection 4 00 :00 dose, Fri Med ical mg 08/06/19 at [place] 1500, ONESIMO NaCl 0.9% 2019-0 2020- No 1000mL at 999 Uni vers (NS) bolus 5-15 05-15 mL/hr, ity of infusion 20:00: 19:00 1,000 mL, [place] as 1,000 mL 00 :00 IV Medical Piggyback, [place] ONCE, 1 dose, 08/06/19 at 1500, STAT iohexol 2019-0 2020- No 50mL 50 mL, Univers (OMNIPAQUE 5- 05-15 Intravenou it y of 350 BULK-50 17:50: 17:50 s, ONCE, 1 [place] mL) 00 :00 dose, Fri Medical injection 08/06/19 at Bran ch 50 mL 1315, Routine traMADol 50 2020-0 Yes [id number] 50mg Take 1 Univers mg tablet 4-17 tablet by ity o f 00:00: mouth [place] 00 every 8 Medical (eight) Branch hours as needed for Pain (scale 7-10) for up to 30 doses. traMADol 50 2020-0 Yes [id number] 50mg Take 1 Univers mg tablet 4-17 tablet by ity o f 00:00: mouth [place] 00 every 8 Medical (eight) Branch hours as needed for Pain (scale 7-10) for up to 30 doses. traMADol 50 2020-0 Yes [id number] 50mg Take 1 Univers mg tablet 4-17 tablet by ity o f 00:00: mouth [place] 00 every 8 Medical (eight) Branch hours as needed for Pain (scale 7-10) for up to 30 doses. traMADol 50 2019-0 Yes [id number] 50mg Take 1 Univers mg tablet 4-17 tablet by ity o f 00:00: mouth [place] 00 every 8 Medical (eight) Branch hours as needed for Pain (scale 7-10) for up to 30 doses. traMADol 50 2019-0 2020- No [id number] 50mg Take 1 Univers mg tablet 4-17 06-08 tablet by ity of 00:00: 00:00 mouth [place] 00 :00 every 8 Medical (eight) Branch hours as needed for Pain (scale 7-10) for up to 30 doses. verapamil 2019-0 2020- No 80mg Take 80 mg U nivers 80 mg 4-02 04-02 by mouth 3 ity of tablet 19:52: 00:00 (three) [place] 46 :00 times Medical daily. Branch verapamil 2019-0 2020- No 80mg Take 80 mg U nivers 80 mg 4-02 04-02 by mouth 3 ity of tablet 19:52: 00:00 (three) [place] 46 :00 times Medical daily. Branch enalapril 0 Yes [id number] 5mg Take 0.5 Univers 10 mg 4-02 tablets by ity of tablet 00:00: mouth [place] 00 daily. Medical Branch acetaminoph 2019-0 Yes [id number] 1{tbl} Take 1 Univers en-codeine 4-02 tablet by ity of 300-30 mg 00:00: mouth [place] tablet 00 every 6 Medical (six) Branch hours as needed for Pain (scale 7-10) for up to 30 doses. enalapril 2019-0 Yes [id number] 5mg Take 0.5 Univers 10 mg 4-02 tablets by ity of tablet 00:00: mouth [place] 00 daily. Medical Branch acetaminoph 2019-0 Yes [id number] 1{tbl} Take 1 Univers en-codeine 4-02 tablet by ity of 300-30 mg 00:00: mouth [place] tablet 00 every 6 Medical (six) Branch hours as needed for Pain (scale 7-10) for up to 30 doses. enalapril 2020-0 Yes [id number] 5mg Take 0.5 Univers 10 mg 4-02 tablets by ity of tablet 00:00: mouth [place] 00 daily. Medical Branch acetaminoph 2019-0 Yes [id number] 1{tbl} Take 1 Univers en-codeine 4-02 tablet by ity of 300-30 mg 00:00: mouth [place] tablet 00 every 6 Medical (six) Branch hours as needed for Pain (scale 7-10) for up to 30 doses. enalapril 2020-0 Yes [id number] 5mg Take 0.5 Univers 10 mg 4-02 tablets by ity of tablet 00:00: mouth [place] 00 daily. Medical Branch acetaminoph 2020-0 Yes [id number] 1{tbl} Take 1 Univers en-codeine 4-02 tablet by ity of 300-30 mg 00:00: mouth [place] tablet 00 every 6 Medical (six) Branch hours as needed for Pain (scale 7-10) for up to 30 doses. enalapril 2020-0 Yes [id number] 5mg Take 0.5 Univers 10 mg 4-02 tablets by ity of tablet 00:00: mouth [place] 00 daily. Medical Branch acetaminoph 2020-0 Yes [id number] 1{tbl} Take 1 Univers en-codeine 4-02 tablet by ity of 300-30 mg 00:00: mouth [place] tablet 00 every 6 Medical (six) Branch hours as needed for Pain (scale 7-10) for up to 30 doses. enalapril 2020-0 Yes [id number] 5mg Take 0.5 Univers 10 mg 4-02 tablets by ity of tablet 00:00: mouth [place] 00 daily. Medical Branch acetaminoph 2019-0 Yes [id number] 1{tbl} Take 1 Univers en-codeine 4-02 tablet by ity of 300-30 mg 00:00: mouth [place] tablet 00 every 6 Medical (six) Branch hours as needed for Pain (scale 7-10) for up to 30 doses. enalapril 2020-0 2020- No [id number] 5mg Take 0.5 Univers 10 mg 4-02 06-25 tablets by ity of tablet 00:00: 00:00 mouth [place] 00 :00 daily. Medical Branch acetaminoph 2020-0 2020- No [id number] 1{tbl} Take 1 Univers en-codeine 4-02 06-25 tablet by ity of 300-30 mg 00:00: 00:00 mouth [place] tablet 00 :00 every 6 Medical (six) Branch hours as needed for Pain (scale 7-10) for up to 30 doses. gabapentin 2019-0 2020- No [id number] 100mg Take 1 Univers 100 mg 4- 05-03 capsule by ity of capsule 00:00: 04:59 mouth 3 [place] 00 :00 (three) Medical times Branch daily for 30 days. gabapentin 2020-0 2020- No [id number] 100mg Take 1 Univers 100 mg 4- 05-03 capsule by ity of capsule 00:00: 04:59 mouth 3 [place] 00 :00 (three) Medical times Branch daily for 30 days. gabapentin 2020-0 2020- No [id number] 100mg Take 1 Univers 100 mg 4- 05-03 capsule by ity of capsule 00:00: 04:59 mouth 3 [place] 00 :00 (three) Medical times Branch daily for 30 days. LINAGLIPTIN 2020-0 Yes Take by Uni vers -METFORMIN 3-27 mouth at ity o f 2.5-850 mg 14:38: bedtime. Kv[place] as Tab 52 Medical Branch verapamil 2020-0 Yes 80mg Take 80 mg Un martha 80 mg 3-27 by mouth 3 ity of tablet 14:38: (three) [place] 52 times Medical daily. Branch LINAGLIPTIN 2020-0 Yes Take by Uni vers -METFORMIN 3-27 mouth at ity o f 2.5-850 mg 14:38: bedtime. Kvng as Tab 52 Medical Branch verapamil 2020-0 Yes 80mg Take 80 mg Un martha 80 mg 3-27 by mouth 3 ity of tablet 14:38: (three) [place] 52 times Medical daily. Branch LINAGLIPTIN 2020-0 Yes Take by Uni vers -METFORMIN 3-27 mouth at ity o f 2.5-850 mg 14:38: bedtime. Kv[place] as Tab 52 Medical Branch LINAGLIPTIN 2020-0 Yes Take by Uni vers -METFORMIN 3-27 mouth at ity o f 2.5-850 mg 14:38: bedtime. Kv[place] as Tab 52 Medical Branch LINAGLIPTIN 2020-0 Yes Take by Uni vers -METFORMIN 3-27 mouth at ity o f 2.5-850 mg 14:38: bedtime. Kv[place] as Tab 52 Medical Branch LINAGLIPTIN 2020-0 Yes Take by Uni vers -METFORMIN 3-27 mouth at ity o f 2.5-850 mg 14:38: bedtime. Kvng as Tab 52 Medical Branch LINAGLIPTIN 2020-0 Yes Take by Uni vers -METFORMIN 3-21 mouth at ity o f 2.5-850 mg 21:20: bedtime. Kvng as Tab 50 Medical Branch verapamil 2020-0 Yes 80mg Take 80 mg Un martha 80 mg 3-21 by mouth 3 ity of tablet 21:20: (three) [place] 50 times Medical daily. Branch LINAGLIPTIN 2020-0 Yes Take by Uni vers -METFORMIN 3-21 mouth at ity o f 2.5-850 mg 21:20: bedtime. Kvng as Tab 50 Medical Branch verapamil 2020-0 Yes 80mg Take 80 mg Un martha 80 mg 3-21 by mouth 3 ity of tablet 21:20: (three) [place] 50 times Medical daily. Branch LINAGLIPTIN 2020-0 Yes Take by Uni vers -METFORMIN 3-21 mouth at ity o f 2.5-850 mg 21:20: bedtime. Kvng as Tab 50 Medical Branch verapamil 2020-0 Yes 80mg Take 80 mg Un martha 80 mg 3-21 by mouth 3 ity of tablet 21:20: (three) [place] 50 times Medical daily. Branch LINAGLIPTIN 2020-0 Yes Take by Uni vers -METFORMIN 3-21 mouth at ity o f 2.5-850 mg 21:20: bedtime. Kvng as Tab 50 Medical Branch verapamil 2020-0 Yes 80mg Take 80 mg Un martha 80 mg 3-21 by mouth 3 ity of tablet 21:20: (three) [place] 50 times Medical daily. Branch furosemide 0 2020- No 20mg Take 20 mg Univers (LASIX) 20 -11 06-21 by mouth ity of mg tablet 16:49: 00:00 daily. [place] 15 :00 Medical Branch ezetimibe/a 2019-0 2020- No 10mg Take 10 mg Univers torvastatin -11 06-21 by mouth ity of calcium 16:49: 00:00 at [place] (EZETIMIBE- 15 :00 bedtime. Medi bharat ATORVASTATI Branch N ORAL) nebivolol 5 2019-0 2020- No 1.25mg Take 1.25 Univers mg tablet - 03-21 mg by ity of 16:49: 00:00 mouth [place] 15 :00 daily. Medical Branch tamsulosin 2019-0 2020- No .4mg Take 0.4 Un martha 0.4 mg 24 3- 03-21 mg by ity of hr capsule 16:49: 00:00 mouth [place] 15 :00 daily. Medical Branch enalapril 2019-0 2020- No Take by Univ ers 10 mg 3-21 -21 mouth ity of tablet 16:49: 00:00 daily. [place] 15 :00 Medical Branch traMADol 50 2020-0 2020- No 50mg Take 50 mg Univers mg tablet 3-21 -21 by mouth ity o f 16:49: 00:00 every 6 [place] 15 :00 (six) Medical hours as Branch needed (foot pain). bisacodyL 5 2020-0 Yes [id number] 5mg Take 1 Univers mg EC 3-21 tablet by ity of tablet 00:00: mouth once [place] 00 daily as Medical needed for Branch Constipati on. Polyethylen 2020-0 Yes [id number] 17g Take 1 Univers e Glycol 3-21 Packet by ity of 3350 17 00:00: mouth 2 [place] gram powder 00 (two) Medical times Branch daily. glipiZIDE 5 2020-0 Yes [id number] 5mg Take 1 Univers mg tablet 3-21 tablet by ity o f 00:00: mouth [place] 00 every Medical morning Branch and evening. metoprolol 2020-0 Yes [id number] 25mg Take 1 Univers tartrate 25 3-21 tablet by ity of mg tablet 00:00: mouth [place] 00 every 12 Medical (twelve) Branch hours. cilostazoL 2020-0 Yes [id number] 100mg Take 2 Univers (PLETAL) 50 3-21 tablets by it y of mg tablet 00:00: mouth 2 [place] 00 (two) Medical times Branch daily with meals. pravastatin 2020-0 Yes [id number] 40mg Take 1 Univers 40 mg 3-21 tablet by ity of tablet 00:00: mouth at [place] 00 bedtime. Medical Branch tamsulosin 2020-0 Yes [id number] .4mg Take 1 Univers 0.4 mg 24 3-21 capsule by ity of hr capsule 00:00: mouth [place] 00 daily. Medical Branch bisacodyL 5 2020-0 Yes [id number] 5mg Take 1 Univers mg EC 3-21 tablet by ity of tablet 00:00: mouth once [place] 00 daily as Medical needed for Branch Constipati on. Polyethylen 2020-0 Yes [id number] 17g Take 1 Univers e Glycol 3-21 Packet by ity of 3350 17 00:00: mouth 2 [place] gram powder 00 (two) Medical times Branch daily. glipiZIDE 5 2020-0 Yes [id number] 5mg Take 1 Univers mg tablet 3-21 tablet by ity o f 00:00: mouth [place] 00 every Medical morning Branch and evening. metoprolol 2020-0 Yes [id number] 25mg Take 1 Univers tartrate 25 3-21 tablet by ity of mg tablet 00:00: mouth [place] 00 every 12 Medical (twelve) Branch hours. cilostazoL 2020-0 Yes [id number] 100mg Take 2 [facility] (PLETAL) 50 3-21 tablets by [facility] mg tablet 00:00: mouth 2 [place] 00 (two) Medical times Branch daily with meals. pravastatin 2020-0 Yes [id number] 40mg Take 1 [facility] 40 mg 3-21 tablet by [facility] tablet 00:00: mouth at [place] 00 bedtime. [facility] tamsulosin 2020-0 Yes [id number] .4mg Take 1 [facility] 0.4 mg 24 3-21 capsule by [facility] of hr capsule 00:00: mouth [place] 00 daily. Medical [facility] bisacodyL 5 2020-0 Yes [id number] 5mg Take 1 [facility] mg EC 3-21 tablet by [facility] of tablet 00:00: mouth once [place] 00 daily as Medical needed for Branch Constipati on. Polyethylen 2020-0 Yes [id number] 17g Take 1 [facility] e Glycol 3-21 Packet by [facility] of 3350 17 00:00: mouth 2 [place] gram powder 00 (two) Medical times Branch daily. glipiZIDE 5 2020-0 Yes [id number] 5mg Take 1 [facility] mg tablet 3-21 tablet by [facility] o f 00:00: mouth [place] 00 every Medical morning Branch and evening. metoprolol 2020-0 Yes [id number] 25mg Take 1 [facility] tartrate 25 3-21 tablet by [facility] of mg tablet 00:00: mouth [place] 00 every 12 Medical (twelve) Branch hours. cilostazoL 2020-0 Yes [id number] 100mg Take 2 [facility] (PLETAL) 50 3-21 tablets by it y of mg tablet 00:00: mouth 2 [place] 00 (two) Medical times Branch daily with meals. pravastatin 2020-0 Yes [id number] 40mg Take 1 [facility] 40 mg 3-21 tablet by [facility] of tablet 00:00: mouth at [place] 00 bedtime. [facility] tamsulosin 2020-0 Yes [id number] .4mg Take 1 [facility] 0.4 mg 24 3-21 capsule by [facility] of hr capsule 00:00: mouth [place] 00 daily. [facility] bisacodyL 5 2020-0 Yes [id number] 5mg Take 1 [facility] mg EC 3-21 tablet by [facility] of tablet 00:00: mouth once [place] 00 daily as Medical needed for Branch Constipati on. Polyethylen 2020-0 Yes [id number] 17g Take 1 [facility] e Glycol 3-21 Packet by [facility]y of 3350 17 00:00: mouth 2 [place] gram powder 00 (two) Medical times Branch daily. glipiZIDE 5 2020-0 Yes [id number] 5mg Take 1 [facility] mg tablet 3-21 tablet by ity o f 00:00: mouth [place] 00 every Medical morning Branch and evening. metoprolol 2020-0 Yes [id number] 25mg Take 1 [facility] tartrate 25 3-21 tablet by [facility] of mg tablet 00:00: mouth [place] 00 every 12 Medical (twelve) Branch hours. cilostazoL 2020-0 Yes [id number] 100mg Take 2 [facility] (PLETAL) 50 3-21 tablets by [facility] of mg tablet 00:00: mouth 2 [place] 00 (two) Medical times Branch daily with meals. pravastatin 2020-0 Yes [id number] 40mg Take 1 [facility] 40 mg 3-21 tablet by [facility] of tablet 00:00: mouth at [place] 00 bedtime. [facility] tamsulosin 2020-0 Yes [id number] .4mg Take 1 [facility] 0.4 mg 24 3-21 capsule by [facility] hr capsule 00:00: mouth [place] 00 daily. [facility] bisacodyL 5 2020-0 Yes [id number] 5mg Take 1 [facility] mg EC 3-21 tablet by [facility] of tablet 00:00: mouth once [place] 00 daily as Medical needed for Branch Constipati on. Polyethylen 2020-0 Yes [id number] 17g Take 1 [facility] e Glycol 3-21 Packet by [facility] of 3350 17 00:00: mouth 2 [place] gram powder 00 (two) Medical times Branch daily. glipiZIDE 5 2020-0 Yes [id number] 5mg Take 1 [facility] mg tablet 3-21 tablet by it[facility] o f 00:00: mouth [place] 00 every Medical morning Branch and evening. metoprolol 2020-0 Yes [id number] 25mg Take 1 [facility] tartrate 25 3-21 tablet by [facility] of mg tablet 00:00: mouth [place] 00 every 12 Medical (twelve) Branch hours. cilostazoL 2020-0 Yes [id number] 100mg Take 2 [facility] (PLETAL) 50 3-21 tablets by it y of mg tablet 00:00: mouth 2 [place] 00 (two) Medical times Branch daily with meals. pravastatin 2020-0 Yes [id number] 40mg Take 1 [facility] 40 mg 3-21 tablet by [facility] of tablet 00:00: mouth at [place] 00 bedtime. [facility] tamsulosin 2020-0 Yes [id number] .4mg Take 1 [facility] 0.4 mg 24 3-21 capsule by [facility] of hr capsule 00:00: mouth [place] 00 daily. [facility] bisacodyL 5 2020-0 Yes [id number] 5mg Take 1 [facility] mg EC 3-21 tablet by [facility] of tablet 00:00: mouth once [place] 00 daily as Medical needed for Branch Constipati on. Polyethylen 2020-0 Yes [id number] 17g Take 1 [facility] e Glycol 3-21 Packet by [facility] of 3350 17 00:00: mouth 2 [place] gram powder 00 (two) Medical times Branch daily. glipiZIDE 5 2020-0 Yes [id number] 5mg Take 1 [facility] mg tablet 3-21 tablet by ity o f 00:00: mouth [place] 00 every Medical morning Branch and evening. metoprolol 2020-0 Yes [id number] 25mg Take 1 [facility] tartrate 25 3-21 tablet by [facility] of mg tablet 00:00: mouth [place] 00 every 12 Medical (twelve) Branch hours. cilostazoL 2020-0 Yes [id number] 100mg Take 2 [facility] (PLETAL) 50 3-21 tablets by it y of mg tablet 00:00: mouth 2 [place] 00 (two) Medical times Branch daily with meals. pravastatin 2020-0 Yes [id number] 40mg Take 1 [facility] 40 mg 3-21 tablet by [facility] of tablet 00:00: mouth at [place] 00 bedtime. Medical [facility] tamsulosin 2020-0 Yes [id number] .4mg Take 1 [facility] 0.4 mg 24 3-21 capsule by [facility] of hr capsule 00:00: mouth [place] 00 daily. [facility] bisacodyL 5 2020-0 Yes [id number] 5mg Take 1 [facility] mg EC 3-21 tablet by [facility] of tablet 00:00: mouth once [place] 00 daily as Medical needed for Branch Constipati on. Polyethylen 2020-0 Yes [id number] 17g Take 1 [facility] e Glycol 3-21 Packet by [facility]y of 3350 17 00:00: mouth 2 [place] gram powder 00 (two) Medical times Branch daily. glipiZIDE 5 2020-0 Yes [id number] 5mg Take 1 [facility] mg tablet 3-21 tablet by ity o f 00:00: mouth [place] 00 every Medical morning Branch and evening. metoprolol 2020-0 Yes [id number] 25mg Take 1 [facility] tartrate 25 3-21 tablet by [facility] of mg tablet 00:00: mouth [place] 00 every 12 Medical (twelve) Branch hours. cilostazoL 2020-0 Yes [id number] 100mg Take 2 [facility] (PLETAL) 50 3-21 tablets by [facility] of mg tablet 00:00: mouth (two) Medical times Branch daily with meals. pravastatin 2020-0 Yes [id number] 40mg Take 1 [facility] 40 mg 3-21 tablet by [facility] of tablet 00:00: mouth at [place] 00 bedtime. Medical [facility] tamsulosin 2020-0 Yes [id number] .4mg Take 1 [facility] 0.4 mg 24 3-21 capsule by [facility] of hr capsule 00:00: mouth 00 daily. [facility] bisacodyL 5 2020-0 Yes [id number] 5mg Take 1 [facility] mg EC 3-21 tablet by [facility] of tablet 00:00: mouth once 00 daily as Medical needed for Branch Constipati on. Polyethylen 2020-0 Yes [id number] 17g Take 1 [facility] e Glycol 3-21 Packet by [facility] of 3350 17 00:00: mouth 2 [place] gram powder 00 (two) Medical times Branch daily. glipiZIDE 5 2020-0 Yes [id number] 5mg Take 1 [facility] mg tablet 3-21 tablet by ity o f 00:00: mouth [place] 00 every Medical morning Branch and evening. metoprolol 2020-0 Yes [id number] 25mg Take 1 [facility] tartrate 25 3-21 tablet by [facility] of mg tablet 00:00: mouth [place] 00 every 12 Medical (twelve) Branch hours. cilostazoL 2020-0 Yes [id number] 100mg Take 2 [facility] (PLETAL) 50 3-21 tablets by it y of mg tablet 00:00: mouth 2 (two) Medical times Branch daily with meals. pravastatin 2020-0 Yes [id number] 40mg Take 1 [facility] 40 mg 3-21 tablet by [facility] of tablet 00:00: mouth at [place] 00 bedtime. [facility] tamsulosin 2020-0 Yes [id number] .4mg Take 1 [facility] 0.4 mg 24 3-21 capsule by [facility] of hr capsule 00:00: mouth [place] 00 daily. [facility] bisacodyL 5 2020-0 Yes [id number] 5mg Take 1 [facility] mg EC 3-21 tablet by [facility] of tablet 00:00: mouth once [place] 00 daily as Medical needed for Branch Constipati on. Polyethylen 2020-0 Yes [id number] 17g Take 1 [facility] e Glycol 3-21 Packet by [facility]y of 3350 17 00:00: mouth 2 [place] gram powder 00 (two) Medical times Branch daily. glipiZIDE 5 2020-0 Yes [id number] 5mg Take 1 [facility] mg tablet 3-21 tablet by ity o f 00:00: mouth 00 every Medical morning Branch and evening. metoprolol 2020-0 Yes [id number] 25mg Take 1 [facility] tartrate 25 3-21 tablet by [facility] of mg tablet 00:00: mouth [place] 00 every 12 Medical (twelve) Branch hours. cilostazoL 2020-0 Yes [id number] 100mg Take 2 [facility] (PLETAL) 50 3-21 tablets by it y of mg tablet 00:00: mouth 2 00 (two) Medical times Branch daily with meals. pravastatin 2020-0 Yes [id number] 40mg Take 1 [facility] 40 mg 3-21 tablet by [facility] of tablet 00:00: mouth at [place] 00 bedtime. [facility] tamsulosin 2020-0 Yes [id number] .4mg Take 1 [facility] 0.4 mg 24 3-21 capsule by [facility] of hr capsule 00:00: mouth [place] 00 daily. [facility] bisacodyL 5 2020-0 Yes [id number] 5mg Take 1 [facility] mg EC 3-21 tablet by [facility] of tablet 00:00: mouth once [place] 00 daily as Medical needed for Branch Constipati on. Polyethylen 2020-0 Yes [id number] 17g Take 1 [facility] e Glycol 3-21 Packet by [facility]y of 3350 17 00:00: mouth 2 [place] gram powder 00 (two) Medical times Branch daily. glipiZIDE 5 2020-0 Yes [id number] 5mg Take 1 [facility] mg tablet 3-21 tablet by ity o f 00:00: mouth [place] 00 every Medical morning Branch and evening. metoprolol 2020-0 Yes [id number] 25mg Take 1 [facility] tartrate 25 3-21 tablet by [facility] of mg tablet 00:00: mouth [place] 00 every 12 Medical (twelve) Branch hours. cilostazoL 2020-0 Yes [id number] 100mg Take 2 [facility] (PLETAL) 50 3-21 tablets by it y of mg tablet 00:00: mouth 2 [place] 00 (two) Medical times Branch daily with meals. pravastatin 2020-0 Yes [id number] 40mg Take 1 [facility] 40 mg 3-21 tablet by [facility] of tablet 00:00: mouth at [place] 00 bedtime. Medical [facility] tamsulosin 2020-0 Yes [id number] .4mg Take 1 [facility] 0.4 mg 24 3-21 capsule by [facility] of hr capsule 00:00: mouth [place] 00 daily. [facility] bisacodyL 5 2020-0 Yes [id number] 5mg Take 1 [facility] mg EC 3-21 tablet by ity of tablet 00:00: mouth once [place] 00 daily as Medical needed for Branch Constipati on. Polyethylen 2020-0 Yes [id number] 17g Take 1 [facility] e Glycol 3-21 Packet by ity of 3350 17 00:00: mouth 2 [place] gram powder 00 (two) Medical times Branch daily. glipiZIDE 5 2020-0 Yes [id number] 5mg Take 1 [facility] mg tablet 3-21 tablet by ity o f 00:00: mouth [place] 00 every Medical morning Branch and evening. metoprolol 2020-0 Yes [id number] 25mg Take 1 [facility] tartrate 25 3-21 tablet by [facility] of mg tablet 00:00: mouth [place] 00 every 12 Medical (twelve) Branch hours. cilostazoL 2020-0 Yes [id number] 100mg Take 2 [facility] (PLETAL) 50 3-21 tablets by it y of mg tablet 00:00: mouth 2 [place] 00 (two) Medical times Branch daily with meals. pravastatin 2020-0 Yes [id number] 40mg Take 1 [facility] 40 mg 3-21 tablet by [facility] of tablet 00:00: mouth at [place] 00 bedtime. Medical [facility] tamsulosin 2020-0 Yes [id number] .4mg Take 1 [facility] 0.4 mg 24 3-21 capsule by [facility] of hr capsule 00:00: mouth [place] 00 daily. [facility] bisacodyL 5 2020-0 Yes [id number] 5mg Take 1 [facility] mg EC 3-21 tablet by [facility] of tablet 00:00: mouth once [place] 00 daily as Medical needed for Branch Constipati on. Polyethylen 2020-0 Yes [id number] 17g Take 1 [facility] e Glycol 3-21 Packet by ity of 3350 17 00:00: mouth 2 [place] gram powder 00 (two) Medical times Branch daily. glipiZIDE 5 2020-0 Yes [id number] 5mg Take 1 [facility] mg tablet 3-21 tablet by ity o f 00:00: mouth [place] 00 every Medical morning Branch and evening. metoprolol 2020-0 Yes [id number] 25mg Take 1 [facility] tartrate 25 3-21 tablet by [facility] of mg tablet 00:00: mouth [place] 00 every 12 Medical (twelve) Branch hours. cilostazoL 2020-0 Yes [id number] 100mg Take 2 [facility] (PLETAL) 50 3-21 tablets by it y of mg tablet 00:00: mouth 2 [place] 00 (two) Medical times Branch daily with meals. pravastatin 2020-0 Yes [id number] 40mg Take 1 [facility] 40 mg 3-21 tablet by [facility] of tablet 00:00: mouth at [place] 00 bedtime. [facility] tamsulosin 2020-0 Yes [id number] .4mg Take 1 [facility] 0.4 mg 24 3-21 capsule by [facility] of hr capsule 00:00: mouth [place] 00 daily. [facility] bisacodyL 5 2020-0 Yes [id number] 5mg Take 1 [facility] mg EC 3-21 tablet by it[facility] of tablet 00:00: mouth once [place] 00 daily as Medical needed for Branch Constipati on. Polyethylen 2020-0 Yes [id number] 17g Take 1 [facility] e Glycol 3-21 Packet by ity of 3350 17 00:00: mouth 2 [place] gram powder 00 (two) Medical times Branch daily. glipiZIDE 5 2020-0 Yes [id number] 5mg Take 1 [facility] mg tablet 3-21 tablet by ity o f 00:00: mouth [place] 00 every Medical morning Branch and evening. metoprolol 2020-0 Yes [id number] 25mg Take 1 [facility] tartrate 25 3-21 tablet by [facility] of mg tablet 00:00: mouth [place] 00 every 12 Medical (twelve) Branch hours. cilostazoL 2020-0 Yes [id number] 100mg Take 2 [facility] (PLETAL) 50 3-21 tablets by it y of mg tablet 00:00: mouth 2 [place] 00 (two) Medical times Branch daily with meals. pravastatin 2020-0 Yes [id number] 40mg Take 1 [facility] 40 mg 3-21 tablet by [facility] of tablet 00:00: mouth at [place] 00 bedtime. Medical [facility] tamsulosin 2020-0 Yes [id number] .4mg Take 1 [facility] 0.4 mg 24 3-21 capsule by [facility] of hr capsule 00:00: mouth [place] 00 daily. [facility] bisacodyL 5 2020-0 Yes [id number] 5mg Take 1 [facility] mg EC 3-21 tablet by [facility]y of tablet 00:00: mouth once [place] 00 daily as Medical needed for Branch Constipati on. Polyethylen 2020-0 Yes [id number] 17g Take 1 [facility] e Glycol 3-21 Packet by ity of 3350 17 00:00: mouth 2 [place] gram powder 00 (two) Medical times Branch daily. glipiZIDE 5 2020-0 Yes [id number] 5mg Take 1 [facility] mg tablet 3-21 tablet by ity o f 00:00: mouth [place] 00 every Medical morning Branch and evening. metoprolol 2020-0 Yes [id number] 25mg Take 1 [facility] tartrate 25 3-21 tablet by [facility] of mg tablet 00:00: mouth [place] 00 every 12 Medical (twelve) Branch hours. cilostazoL 2020-0 Yes [id number] 100mg Take 2 [facility] (PLETAL) 50 3-21 tablets by it y of mg tablet 00:00: mouth 2 [place] 00 (two) Medical times Branch daily with meals. pravastatin 2020-0 Yes [id number] 40mg Take 1 [facility] 40 mg 3-21 tablet by [facility] of tablet 00:00: mouth at [place] 00 bedtime. Medical [facility] tamsulosin 2020-0 Yes [id number] .4mg Take 1 [facility] 0.4 mg 24 3-21 capsule by [facility] of hr capsule 00:00: mouth [place] 00 daily. [facility] bisacodyL 5 2020-0 Yes [id number] 5mg Take 1 [facility] mg EC 3-21 tablet by ity of tablet 00:00: mouth once [place] 00 daily as Medical needed for Branch Constipati on. Polyethylen 2020-0 Yes [id number] 17g Take 1 [facility] e Glycol 3-21 Packet by ity of 3350 17 00:00: mouth 2 [place] gram powder 00 (two) Medical times Branch daily. glipiZIDE 5 2020-0 Yes [id number] 5mg Take 1 [facility] mg tablet 3-21 tablet by ity o f 00:00: mouth 00 every Medical morning Branch and evening. metoprolol 2020-0 Yes [id number] 25mg Take 1 [facility] tartrate 25 3-21 tablet by [facility]y of mg tablet 00:00: mouth [place] 00 every 12 Medical (twelve) Branch hours. cilostazoL 2020-0 Yes [id number] 100mg Take 2 [facility] (PLETAL) 50 3-21 tablets by it y of mg tablet 00:00: mouth (two) Medical times Branch daily with meals. pravastatin 2020-0 Yes [id number] 40mg Take 1 [facility] 40 mg 3-21 tablet by [facility] of tablet 00:00: mouth at [place] 00 bedtime. Medical [facility] tamsulosin 2020-0 Yes [id number] .4mg Take 1 [facility] 0.4 mg 24 3-21 capsule by ity of hr capsule 00:00: mouth daily. [facility] bisacodyL 5 2020-0 Yes [id number] 5mg Take 1 [facility] mg EC 3-21 tablet by ity of tablet 00:00: mouth daily as Medical needed for Branch Constipati on. Polyethylen 2020-0 Yes [id number] 17g Take 1 [facility] e Glycol 3-21 Packet by ity of 3350 17 00:00: mouth 2 [place] gram powder 00 (two) Medical times Branch daily. glipiZIDE 5 2020-0 Yes [id number] 5mg Take 1 [facility] mg tablet 3-21 tablet by ity o f 00:00: mouth 00 every Medical morning Branch and evening. metoprolol 2020-0 Yes [id number] 25mg Take 1 [facility] tartrate 25 3-21 tablet by [facility]y of mg tablet 00:00: mouth [place] 00 every 12 Medical (twelve) Branch hours. cilostazoL 2020-0 Yes [id number] 100mg Take 2 [facility] (PLETAL) 50 3-21 tablets by it y of mg tablet 00:00: mouth 2 [place] 00 (two) Medical times Branch daily with meals. pravastatin 2020-0 Yes [id number] 40mg Take 1 [facility] 40 mg 3-21 tablet by [facility] of tablet 00:00: mouth at [place] 00 bedtime. [facility] tamsulosin 2020-0 Yes [id number] .4mg Take 1 [facility] 0.4 mg 24 3-21 capsule by [facility]y of hr capsule 00:00: mouth [place] 00 daily. [facility] bisacodyL 5 2020-0 Yes [id number] 5mg Take 1 [facility] mg EC 3-21 tablet by ity of tablet 00:00: mouth once [place] 00 daily as Medical needed for Branch Constipati on. Polyethylen 2020-0 Yes [id number] 17g Take 1 [facility] e Glycol 3-21 Packet by ity of 3350 17 00:00: mouth 2 [place] gram powder 00 (two) Medical times Branch daily. glipiZIDE 5 2020-0 Yes [id number] 5mg Take 1 [facility] mg tablet 3-21 tablet by ity o f 00:00: mouth 00 every Medical morning Branch and evening. metoprolol 2020-0 Yes [id number] 25mg Take 1 [facility] tartrate 25 3-21 tablet by [facility]y of mg tablet 00:00: mouth [place] 00 every 12 Medical (twelve) Branch hours. cilostazoL 2020-0 Yes [id number] 100mg Take 2 [facility] (PLETAL) 50 3-21 tablets by it y of mg tablet 00:00: mouth 2 00 (two) Medical times Branch daily with meals. pravastatin 2020-0 Yes [id number] 40mg Take 1 [facility] 40 mg 3-21 tablet by [facility] of tablet 00:00: mouth at [place] 00 bedtime. Medical [facility] tamsulosin 2020-0 Yes [id number] .4mg Take 1 [facility] 0.4 mg 24 3-21 capsule by ity of hr capsule 00:00: mouth [place] 00 daily. [facility] bisacodyL 5 2020-0 Yes [id number] 5mg Take 1 [facility] mg EC 3-21 tablet by [facility]y of tablet 00:00: mouth once [place] 00 daily as Medical needed for Branch Constipati on. Polyethylen 2020-0 Yes [id number] 17g Take 1 [facility] e Glycol 3-21 Packet by ity of 3350 17 00:00: mouth 2 [place] gram powder 00 (two) Medical times Branch daily. glipiZIDE 5 2020-0 Yes [id number] 5mg Take 1 [facility] mg tablet 3-21 tablet by ity o f 00:00: mouth [place] 00 every Medical morning Branch and evening. metoprolol 2020-0 Yes [id number] 25mg Take 1 [facility] tartrate 25 3-21 tablet by [facility]y of mg tablet 00:00: mouth [place] 00 every 12 Medical (twelve) Branch hours. cilostazoL 2020-0 Yes [id number] 100mg Take 2 [facility] (PLETAL) 50 3-21 tablets by it y of mg tablet 00:00: mouth 2 [place] 00 (two) Medical times Branch daily with meals. pravastatin 2020-0 Yes [id number] 40mg Take 1 [facility] 40 mg 3-21 tablet by [facility]y of tablet 00:00: mouth at [place] 00 bedtime. Medical [facility] tamsulosin 2020-0 Yes [id number] .4mg Take 1 [facility] 0.4 mg 24 3-21 capsule by ity of hr capsule 00:00: mouth [place] 00 daily. [facility] bisacodyL 5 2020-0 Yes [id number] 5mg Take 1 [facility] mg EC 3-21 tablet by ity of tablet 00:00: mouth once [place] 00 daily as Medical needed for Branch Constipati on. Polyethylen 2020-0 Yes [id number] 17g Take 1 [facility] e Glycol 3-21 Packet by ity of 3350 17 00:00: mouth 2 [place] gram powder 00 (two) Medical times Branch daily. glipiZIDE 5 2020-0 Yes [id number] 5mg Take 1 [facility] mg tablet 3-21 tablet by ity o f 00:00: mouth [place] 00 every Medical morning Branch and evening. metoprolol 2020-0 Yes [id number] 25mg Take 1 [facility] tartrate 25 3-21 tablet by [facility]y of mg tablet 00:00: mouth [place] 00 every 12 Medical (twelve) Branch hours. cilostazoL 2020-0 Yes [id number] 100mg Take 2 [facility] (PLETAL) 50 3-21 tablets by it y of mg tablet 00:00: mouth 2 [place] 00 (two) Medical times Branch daily with meals. pravastatin 2020-0 Yes [id number] 40mg Take 1 [facility] 40 mg 3-21 tablet by [facility] of tablet 00:00: mouth at [place] 00 bedtime. Medical [facility] tamsulosin 2020-0 Yes [id number] .4mg Take 1 [facility] 0.4 mg 24 3-21 capsule by ity of hr capsule 00:00: mouth [place] 00 daily. [facility] bisacodyL 5 2020-0 Yes [id number] 5mg Take 1 [facility] mg EC 3-21 tablet by ity of tablet 00:00: mouth once [place] 00 daily as Medical needed for Branch Constipati on. Polyethylen 2020-0 Yes [id number] 17g Take 1 [facility] e Glycol 3-21 Packet by ity of 3350 17 00:00: mouth 2 [place] gram powder 00 (two) Medical times Branch daily. glipiZIDE 5 2020-0 Yes [id number] 5mg Take 1 [facility] mg tablet 3-21 tablet by ity o f 00:00: mouth [place] 00 every Medical morning Branch and evening. metoprolol 2020-0 Yes [id number] 25mg Take 1 [facility] tartrate 25 3-21 tablet by [facility]y of mg tablet 00:00: mouth [place] 00 every 12 Medical (twelve) Branch hours. cilostazoL 2020-0 Yes [id number] 100mg Take 2 [facility] (PLETAL) 50 3-21 tablets by it y of mg tablet 00:00: mouth 2 [place] 00 (two) Medical times Branch daily with meals. pravastatin 2020-0 Yes [id number] 40mg Take 1 [facility] 40 mg 3-21 tablet by [facility]y of tablet 00:00: mouth at [place] 00 bedtime. Medical [facility] tamsulosin 2020-0 Yes [id number] .4mg Take 1 [facility] 0.4 mg 24 3-21 capsule by ity of hr capsule 00:00: mouth [place] 00 daily. [facility] bisacodyL 5 2020-0 Yes [id number] 5mg Take 1 [facility] mg EC 3-21 tablet by [facility]y of tablet 00:00: mouth once [place] 00 daily as Medical needed for Branch Constipati on. Polyethylen 2020-0 Yes [id number] 17g Take 1 [facility] e Glycol 3-21 Packet by ity of 3350 17 00:00: mouth 2 [place] gram powder 00 (two) Medical times Branch daily. glipiZIDE 5 2020-0 Yes [id number] 5mg Take 1 [facility] mg tablet 3-21 tablet by ity o f 00:00: mouth [place] 00 every Medical morning Branch and evening. metoprolol 2020-0 Yes [id number] 25mg Take 1 [facility] tartrate 25 3-21 tablet by [facility]y of mg tablet 00:00: mouth [place] 00 every 12 Medical (twelve) Branch hours. cilostazoL 2020-0 Yes [id number] 100mg Take 2 [facility] (PLETAL) 50 3-21 tablets by it y of mg tablet 00:00: mouth 2 [place] 00 (two) Medical times Branch daily with meals. pravastatin 2020-0 Yes [id number] 40mg Take 1 [facility] 40 mg 3-21 tablet by [facility] of tablet 00:00: mouth at [place] 00 bedtime. Medical [facility] tamsulosin 2020-0 Yes [id number] .4mg Take 1 [facility] 0.4 mg 24 3-21 capsule by ity of hr capsule 00:00: mouth [place] 00 daily. [facility] bisacodyL 5 2020-0 Yes [id number] 5mg Take 1 [facility] mg EC 3-21 tablet by ity of tablet 00:00: mouth once [place] 00 daily as Medical needed for Branch Constipati on. Polyethylen 2020-0 Yes [id number] 17g Take 1 [facility] e Glycol 3-21 Packet by ity of 3350 17 00:00: mouth 2 [place] gram powder 00 (two) Medical times Branch daily. glipiZIDE 5 2020-0 Yes [id number] 5mg Take 1 [facility] mg tablet 3-21 tablet by ity o f 00:00: mouth [place] 00 every Medical morning Branch and evening. metoprolol 2020-0 Yes [id number] 25mg Take 1 [facility] tartrate 25 3-21 tablet by [facility]y of mg tablet 00:00: mouth [place] 00 every 12 Medical (twelve) Branch hours. cilostazoL 2020-0 Yes [id number] 100mg Take 2 [facility] (PLETAL) 50 3-21 tablets by it y of mg tablet 00:00: mouth 2 [place] 00 (two) Medical times Branch daily with meals. pravastatin 2020-0 Yes [id number] 40mg Take 1 [facility] 40 mg 3-21 tablet by [facility] of tablet 00:00: mouth at [place] 00 bedtime. Medical [facility] tamsulosin 2020-0 Yes [id number] .4mg Take 1 [facility] 0.4 mg 24 3-21 capsule by [facility]y of hr capsule 00:00: mouth [place] 00 daily. [facility] bisacodyL 5 2020-0 Yes [id number] 5mg Take 1 [facility] mg EC 3-21 tablet by [facility]y of tablet 00:00: mouth once [place] 00 daily as Medical needed for Branch Constipati on. Polyethylen 2020-0 Yes [id number] 17g Take 1 [facility] e Glycol 3-21 Packet by ity of 3350 17 00:00: mouth 2 [place] gram powder 00 (two) Medical times Branch daily. glipiZIDE 5 2020-0 Yes [id number] 5mg Take 1 [facility] mg tablet 3-21 tablet by ity o f 00:00: mouth [place] 00 every Medical morning Branch and evening. metoprolol 2020-0 Yes [id number] 25mg Take 1 [facility] tartrate 25 3-21 tablet by [facility]y of mg tablet 00:00: mouth [place] 00 every 12 Medical (twelve) Branch hours. cilostazoL 2020-0 Yes [id number] 100mg Take 2 [facility] (PLETAL) 50 3-21 tablets by it y of mg tablet 00:00: mouth 2 [place] (two) Medical times Branch daily with meals. pravastatin 2020-0 Yes [id number] 40mg Take 1 [facility] 40 mg 3-21 tablet by [facility] of tablet 00:00: mouth at [place] 00 bedtime. [facility] tamsulosin 2020-0 Yes [id number] .4mg Take 1 [facility] 0.4 mg 24 3-21 capsule by [facility]y of hr capsule 00:00: mouth 00 daily. [facility] bisacodyL 5 2020-0 Yes [id number] 5mg Take 1 [facility] mg EC 3-21 tablet by [facility]y of tablet 00:00: mouth once [place] 00 daily as Medical needed for Branch Constipati on. Polyethylen 2020-0 Yes [id number] 17g Take 1 [facility] e Glycol 3-21 Packet by ity of 3350 17 00:00: mouth 2 [place] gram powder 00 (two) Medical times Branch daily. glipiZIDE 5 2020-0 Yes [id number] 5mg Take 1 [facility] mg tablet 3-21 tablet by ity o f 00:00: mouth [place] 00 every Medical morning Branch and evening. metoprolol 2020-0 Yes [id number] 25mg Take 1 [facility] tartrate 25 3-21 tablet by [facility]y of mg tablet 00:00: mouth [place] 00 every 12 Medical (twelve) Branch hours. cilostazoL 2020-0 Yes [id number] 100mg Take 2 [facility] (PLETAL) 50 3-21 tablets by it y of mg tablet 00:00: mouth 2 00 (two) Medical times Branch daily with meals. pravastatin 2020-0 Yes [id number] 40mg Take 1 [facility] 40 mg 3-21 tablet by [facility] of tablet 00:00: mouth at [place] 00 bedtime. Medical [facility] tamsulosin 2020-0 Yes [id number] .4mg Take 1 [facility] 0.4 mg 24 3-21 capsule by [facility] hr capsule 00:00: mouth [place] 00 daily. [facility] bisacodyL 5 2020-0 Yes [id number] 5mg Take 1 [facility] mg EC 3-21 tablet by [facility] of tablet 00:00: mouth once [place] 00 daily as Medical needed for Branch Constipati on. Polyethylen 2020-0 Yes [id number] 17g Take 1 [facility] e Glycol 3-21 Packet by [facility] of 3350 17 00:00: mouth 2 [place] gram powder 00 (two) Medical times Branch daily. glipiZIDE 5 2020-0 Yes [id number] 5mg Take 1 [facility] mg tablet 3-21 tablet by [facility] o f 00:00: mouth 00 every Medical morning Branch and evening. metoprolol 2020-0 Yes [id number] 25mg Take 1 [facility] tartrate 25 3-21 tablet by [facility] of mg tablet 00:00: mouth [place] 00 every 12 Medical (twelve) Branch hours. cilostazoL 2020-0 Yes [id number] 100mg Take 2 [facility] (PLETAL) 50 3-21 tablets by it y of mg tablet 00:00: mouth 2 (two) Medical times Branch daily with meals. pravastatin 2020-0 Yes [id number] 40mg Take 1 [facility] 40 mg 3-21 tablet by [facility] of tablet 00:00: mouth at [place] 00 bedtime. Medical [facility] tamsulosin 2020-0 Yes [id number] .4mg Take 1 [facility] 0.4 mg 24 3-21 capsule by [facility] hr capsule 00:00: mouth [place] 00 daily. [facility] bisacodyL 5 2020-0 Yes [id number] 5mg Take 1 [facility] mg EC 3-21 tablet by [facility] of tablet 00:00: mouth once [place] 00 daily as Medical needed for Branch Constipati on. Polyethylen 2020-0 Yes [id number] 17g Take 1 [facility] e Glycol 3-21 Packet by [facility] of 3350 17 00:00: mouth 2 [place] gram powder 00 (two) Medical times Branch daily. glipiZIDE 5 2020-0 Yes [id number] 5mg Take 1 [facility] mg tablet 3-21 tablet by [facility] o f 00:00: mouth [place] 00 every Medical morning Branch and evening. metoprolol 2020-0 Yes [id number] 25mg Take 1 [facility] tartrate 25 3-21 tablet by [facility] of mg tablet 00:00: mouth [place] 00 every 12 Medical (twelve) Branch hours. cilostazoL 2020-0 Yes [id number] 100mg Take 2 [facility] (PLETAL) 50 3-21 tablets by it y of mg tablet 00:00: mouth 2 [place] 00 (two) Medical times Branch daily with meals. pravastatin 2020-0 Yes [id number] 40mg Take 1 [facility] 40 mg 3-21 tablet by [facility] of tablet 00:00: mouth at [place] 00 bedtime. [facility] tamsulosin 2020-0 Yes [id number] .4mg Take 1 [facility] 0.4 mg 24 3-21 capsule by [facility] hr capsule 00:00: mouth [place] 00 daily. [facility] bisacodyL 5 2020-0 Yes [id number] 5mg Take 1 [facility] mg EC 3-21 tablet by [facility] of tablet 00:00: mouth once [place] 00 daily as Medical needed for Branch Constipati on. Polyethylen 2020-0 Yes [id number] 17g Take 1 [facility] e Glycol 3-21 Packet by [facility] of 3350 17 00:00: mouth 2 [place] gram powder 00 (two) Medical times Branch daily. glipiZIDE 5 2020-0 Yes [id number] 5mg Take 1 [facility] mg tablet 3-21 tablet by [facility] o f 00:00: mouth [place] 00 every Medical morning Branch and evening. metoprolol 2020-0 Yes [id number] 25mg Take 1 [facility] tartrate 25 3-21 tablet by [facility] of mg tablet 00:00: mouth [place] 00 every 12 Medical (twelve) Branch hours. cilostazoL 2020-0 Yes [id number] 100mg Take 2 [facility] (PLETAL) 50 3-21 tablets by it y of mg tablet 00:00: mouth 2 [place] 00 (two) Medical times Branch daily with meals. pravastatin 2020-0 Yes [id number] 40mg Take 1 [facility] 40 mg 3-21 tablet by [facility] of tablet 00:00: mouth at [place] 00 bedtime. [facility] tamsulosin 2020-0 Yes [id number] .4mg Take 1 [facility] 0.4 mg 24 3-21 capsule by [facility] of hr capsule 00:00: mouth [place] 00 daily. [facility] bisacodyL 5 2020-0 Yes [id number] 5mg Take 1 [facility] mg EC 3-21 tablet by [facility] of tablet 00:00: mouth once [place] 00 daily as Medical needed for Branch Constipati on. Polyethylen 2020-0 Yes [id number] 17g Take 1 [facility] e Glycol 3-21 Packet by [facility] of 3350 17 00:00: mouth 2 [place] gram powder 00 (two) Medical times Branch daily. glipiZIDE 5 2020-0 Yes [id number] 5mg Take 1 [facility] mg tablet 3-21 tablet by [facility] o f 00:00: mouth [place] 00 every Medical morning Branch and evening. metoprolol 2020-0 Yes [id number] 25mg Take 1 [facility] tartrate 25 3-21 tablet by [facility] of mg tablet 00:00: mouth [place] 00 every 12 Medical (twelve) Branch hours. cilostazoL 2020-0 Yes [id number] 100mg Take 2 [facility] (PLETAL) 50 3-21 tablets by it y of mg tablet 00:00: mouth 2 [place] 00 (two) Medical times Branch daily with meals. pravastatin 2020-0 Yes [id number] 40mg Take 1 [facility] 40 mg 3-21 tablet by [facility] of tablet 00:00: mouth at [place] 00 bedtime. Medical [facility] tamsulosin 2020-0 Yes [id number] .4mg Take 1 [facility] 0.4 mg 24 3-21 capsule by [facility] of hr capsule 00:00: mouth [place] 00 daily. [facility] bisacodyL 5 2020-0 Yes [id number] 5mg Take 1 [facility] mg EC 3-21 tablet by [facility] of tablet 00:00: mouth once [place] 00 daily as Medical needed for Branch Constipati on. Polyethylen 2020-0 Yes [id number] 17g Take 1 [facility] e Glycol 3-21 Packet by [facility]y of 3350 17 00:00: mouth 2 [place] gram powder 00 (two) Medical times Branch daily. glipiZIDE 5 2020-0 Yes [id number] 5mg Take 1 [facility] mg tablet 3-21 tablet by ity o f 00:00: mouth [place] 00 every Medical morning Branch and evening. metoprolol 2020-0 Yes [id number] 25mg Take 1 [facility] tartrate 25 3-21 tablet by [facility] of mg tablet 00:00: mouth [place] 00 every 12 Medical (twelve) Branch hours. cilostazoL 2020-0 Yes [id number] 100mg Take 2 [facility] (PLETAL) 50 3-21 tablets by it y of mg tablet 00:00: mouth 2 [place] 00 (two) Medical times Branch daily with meals. pravastatin 2020-0 Yes [id number] 40mg Take 1 [facility] 40 mg 3-21 tablet by [facility] of tablet 00:00: mouth at [place] 00 bedtime. Medical [facility] tamsulosin 2020-0 Yes [id number] .4mg Take 1 [facility] 0.4 mg 24 3-21 capsule by [facility] of hr capsule 00:00: mouth [place] 00 daily. [facility] bisacodyL 5 2020-0 Yes [id number] 5mg Take 1 [facility] mg EC 3-21 tablet by [facility] of tablet 00:00: mouth once [place] 00 daily as Medical needed for Branch Constipati on. Polyethylen 2020-0 Yes [id number] 17g Take 1 [facility] e Glycol 3-21 Packet by [facility] of 3350 17 00:00: mouth 2 [place] gram powder 00 (two) Medical times Branch daily. glipiZIDE 5 2020-0 Yes [id number] 5mg Take 1 [facility] mg tablet 3-21 tablet by ity o f 00:00: mouth [place] 00 every Medical morning Branch and evening. metoprolol 2020-0 Yes [id number] 25mg Take 1 [facility] tartrate 25 3-21 tablet by [facility] of mg tablet 00:00: mouth [place] 00 every 12 Medical (twelve) Branch hours. cilostazoL 2020-0 Yes [id number] 100mg Take 2 [facility] (PLETAL) 50 3-21 tablets by it y of mg tablet 00:00: mouth 2 [place] 00 (two) Medical times Branch daily with meals. pravastatin 2020-0 Yes [id number] 40mg Take 1 [facility] 40 mg 3-21 tablet by [facility] of tablet 00:00: mouth at [place] 00 bedtime. [facility] tamsulosin 2020-0 Yes [id number] .4mg Take 1 [facility] 0.4 mg 24 3-21 capsule by [facility] of hr capsule 00:00: mouth [place] 00 daily. [facility] bisacodyL 5 2020-0 Yes [id number] 5mg Take 1 [facility] mg EC 3-21 tablet by [facility] of tablet 00:00: mouth once [place] 00 daily as Medical needed for Branch Constipati on. Polyethylen 2020-0 Yes [id number] 17g Take 1 [facility] e Glycol 3-21 Packet by ity of 3350 17 00:00: mouth 2 [place] gram powder 00 (two) Medical times Branch daily. glipiZIDE 5 2020-0 Yes [id number] 5mg Take 1 [facility] mg tablet 3-21 tablet by ity o f 00:00: mouth [place] 00 every Medical morning Branch and evening. metoprolol 2020-0 Yes [id number] 25mg Take 1 [facility] tartrate 25 3-21 tablet by [facility] of mg tablet 00:00: mouth [place] 00 every 12 Medical (twelve) Branch hours. cilostazoL 2020-0 Yes [id number] 100mg Take 2 [facility] (PLETAL) 50 3-21 tablets by it y of mg tablet 00:00: mouth 2 [place] 00 (two) Medical times Branch daily with meals. pravastatin 2020-0 Yes [id number] 40mg Take 1 [facility] 40 mg 3-21 tablet by [facility] of tablet 00:00: mouth at [place] 00 bedtime. [facility] tamsulosin 2020-0 Yes [id number] .4mg Take 1 [facility] 0.4 mg 24 3-21 capsule by [facility] of hr capsule 00:00: mouth [place] 00 daily. [facility] bisacodyL 5 2020-0 Yes [id number] 5mg Take 1 [facility] mg EC 3-21 tablet by [facility] of tablet 00:00: mouth once [place] 00 daily as Medical needed for Branch Constipati on. Polyethylen 2020-0 Yes [id number] 17g Take 1 [facility] e Glycol 3-21 Packet by [facility]y of 3350 17 00:00: mouth 2 [place] gram powder 00 (two) Medical times Branch daily. glipiZIDE 5 2020-0 Yes [id number] 5mg Take 1 [facility] mg tablet 3-21 tablet by ity o f 00:00: mouth [place] 00 every Medical morning Branch and evening. metoprolol 2020-0 Yes [id number] 25mg Take 1 [facility] tartrate 25 3-21 tablet by [facility] of mg tablet 00:00: mouth [place] 00 every 12 Medical (twelve) Branch hours. cilostazoL 2020-0 Yes [id number] 100mg Take 2 [facility] (PLETAL) 50 3-21 tablets by it y of mg tablet 00:00: mouth 2 [place] 00 (two) Medical times Branch daily with meals. pravastatin 2020-0 Yes [id number] 40mg Take 1 [facility] 40 mg 3-21 tablet by [facility] of tablet 00:00: mouth at [place] 00 bedtime. [facility] tamsulosin 2020-0 Yes [id number] .4mg Take 1 [facility] 0.4 mg 24 3-21 capsule by [facility] of hr capsule 00:00: mouth [place] 00 daily. [facility] bisacodyL 5 2020-0 Yes [id number] 5mg Take 1 [facility] mg EC 3-21 tablet by [facility] of tablet 00:00: mouth once [place] 00 daily as Medical needed for Branch Constipati on. Polyethylen 2020-0 Yes [id number] 17g Take 1 [facility] e Glycol 3-21 Packet by [facility]y of 3350 17 00:00: mouth 2 [place] gram powder 00 (two) Medical times Branch daily. glipiZIDE 5 2020-0 Yes [id number] 5mg Take 1 [facility] mg tablet 3-21 tablet by ity o f 00:00: mouth [place] 00 every Medical morning Branch and evening. metoprolol 2020-0 Yes [id number] 25mg Take 1 [facility] tartrate 25 3-21 tablet by [facility] of mg tablet 00:00: mouth [place] 00 every 12 Medical (twelve) Branch hours. cilostazoL 2020-0 Yes [id number] 100mg Take 2 [facility] (PLETAL) 50 3-21 tablets by it y of mg tablet 00:00: mouth 2 [place] 00 (two) Medical times Branch daily with meals. pravastatin 2020-0 Yes [id number] 40mg Take 1 [facility] 40 mg 3-21 tablet by [facility] of tablet 00:00: mouth at [place] 00 bedtime. Medical [facility] tamsulosin 2020-0 Yes [id number] .4mg Take 1 [facility] 0.4 mg 24 3-21 capsule by [facility] of hr capsule 00:00: mouth [place] 00 daily. [facility] bisacodyL 5 2020-0 Yes [id number] 5mg Take 1 [facility] mg EC 3-21 tablet by [facility] of tablet 00:00: mouth once [place] 00 daily as Medical needed for Branch Constipati on. HYDROcodone 2020-0 Yes [id number] 1{tbl} Take 1 [facility] -acetaminop 3-21 tablet by ity of hen 5-325 00:00: mouth [place] mg tablet 00 every 6 Medical (six) Branch hours as needed for Pain (scale 4-6) or Pain (scale 7-10). bisacodyL 5 2020-0 Yes [id number] 5mg Take 1 [facility] mg EC 3-21 tablet by ity of tablet 00:00: mouth once [place] 00 daily as Medical needed for Branch Constipati on. Polyethylen 2020-0 Yes [id number] 17g Take 1 [facility] e Glycol 3-21 Packet by ity of 3350 17 00:00: mouth 2 [place] gram powder 00 (two) Medical times Branch daily. glipiZIDE 5 2020-0 Yes [id number] 5mg Take 1 [facility] mg tablet 3-21 tablet by ity o f 00:00: mouth [place] 00 every Medical morning Branch and evening. metoprolol 2020-0 Yes [id number] 25mg Take 1 [facility] tartrate 25 3-21 tablet by [facility] of mg tablet 00:00: mouth [place] 00 every 12 Medical (twelve) Branch hours. cilostazoL 2020-0 Yes [id number] 100mg Take 2 [facility] (PLETAL) 50 3-21 tablets by it y of mg tablet 00:00: mouth 2 [place] 00 (two) Medical times Branch daily with meals. pravastatin 2020-0 Yes [id number] 40mg Take 1 [facility] 40 mg 3-21 tablet by [facility] of tablet 00:00: mouth at [place] 00 bedtime. Medical [facility] tamsulosin 2020-0 Yes [id number] .4mg Take 1 [facility] 0.4 mg 24 3-21 capsule by [facility] of hr capsule 00:00: mouth [place] 00 daily. [facility] Polyethylen 2020-0 Yes [id number] 17g Take 1 [facility] e Glycol 3-21 Packet by ity of 3350 17 00:00: mouth 2 [place] gram powder 00 (two) Medical times Branch daily. enalapril 2020-0 Yes [id number] 10mg Take 1 [facility] 10 mg 3-21 tablet by [facility] of tablet 00:00: mouth [place] 00 daily. [facility] glipiZIDE 5 2020-0 Yes [id number] 5mg Take 1 [facility] mg tablet 3-21 tablet by ity o f 00:00: mouth [place] 00 every Medical morning Branch and evening. bisacodyL 5 2020-0 Yes [id number] 5mg Take 1 [facility] mg EC 3-21 tablet by [facility] of tablet 00:00: mouth once [place] 00 daily as Medical needed for Branch Constipati on. Polyethylen 2020-0 Yes [id number] 17g Take 1 [facility] e Glycol 3-21 Packet by ity of 3350 17 00:00: mouth 2 [place] gram powder 00 (two) Medical times Branch daily. glipiZIDE 5 2020-0 Yes [id number] 5mg Take 1 [facility] mg tablet 3-21 tablet by ity o f 00:00: mouth [place] 00 every Medical morning Branch and evening. metoprolol 2020-0 Yes [id number] 25mg Take 1 [facility] tartrate 25 3-21 tablet by [facility] of mg tablet 00:00: mouth [place] 00 every 12 Medical (twelve) Branch hours. cilostazoL 2020-0 Yes [id number] 100mg Take 2 [facility] (PLETAL) 50 3-21 tablets by it y of mg tablet 00:00: mouth 2 [place] 00 (two) Medical times Branch daily with meals. pravastatin 2020-0 Yes [id number] 40mg Take 1 [facility] 40 mg 3-21 tablet by [facility] of tablet 00:00: mouth at [place] 00 bedtime. Medical [facility] tamsulosin 2020-0 Yes [id number] .4mg Take 1 [facility] 0.4 mg 24 3-21 capsule by [facility] of hr capsule 00:00: mouth [place] 00 daily. [facility] clopidogreL 2020-0 Yes [id number] 75mg Take 1 [facility] 75 mg 3-21 tablet by [facility] of tablet 00:00: mouth [place] 00 daily. [facility] gabapentin 2020-0 Yes [id number] 100mg Take 1 [facility] 100 mg 3-21 capsule by [facility] of capsule 00:00: mouth 3 [place] 00 (three) Medical times Branch daily. bisacodyL 5 2020-0 Yes [id number] 5mg Take 1 [facility] mg EC 3-21 tablet by [facility] of tablet 00:00: mouth once [place] 00 daily as Medical needed for Branch Constipati on. Polyethylen 2020-0 Yes [id number] 17g Take 1 [facility] e Glycol 3-21 Packet by ity of 3350 17 00:00: mouth 2 [place] gram powder 00 (two) Medical times Branch daily. glipiZIDE 5 2020-0 Yes [id number] 5mg Take 1 [facility] mg tablet 3-21 tablet by ity o f 00:00: mouth [place] 00 every Medical morning Branch and evening. metoprolol 2020-0 Yes [id number] 25mg Take 1 [facility] tartrate 25 3-21 tablet by [facility]y of mg tablet 00:00: mouth [place] 00 every 12 Medical (twelve) Branch hours. cilostazoL 2020-0 Yes [id number] 100mg Take 2 [facility] (PLETAL) 50 3-21 tablets by it y of mg tablet 00:00: mouth 2 [place] 00 (two) Medical times Branch daily with meals. pravastatin 2020-0 Yes [id number] 40mg Take 1 [facility] 40 mg 3-21 tablet by [facility] of tablet 00:00: mouth at [place] 00 bedtime. Medical [facility] tamsulosin 2020-0 Yes [id number] .4mg Take 1 [facility] 0.4 mg 24 3-21 capsule by [facility]y of hr capsule 00:00: mouth [place] 00 daily. [facility] metoprolol 2020-0 Yes [id number] 25mg Take 1 [facility] tartrate 25 3-21 tablet by [facility] of mg tablet 00:00: mouth [place] 00 every 12 Medical (twelve) Branch hours. aspirin 81 2020-0 Yes [id number] 81mg Take 1 [facility] mg chewable 3-21 tablet by [facility] of tablet 00:00: mouth [place] 00 daily. [facility] bisacodyL 5 2020-0 Yes [id number] 5mg Take 1 [facility] mg EC 3-21 tablet by ity of tablet 00:00: mouth once [place] 00 daily as Medical needed for Branch Constipati on. Polyethylen 2020-0 Yes [id number] 17g Take 1 [facility] e Glycol 3-21 Packet by ity of 3350 17 00:00: mouth 2 [place] gram powder 00 (two) Medical times Branch daily. glipiZIDE 5 2020-0 Yes [id number] 5mg Take 1 [facility] mg tablet 3-21 tablet by ity o f 00:00: mouth [place] 00 every Medical morning Branch and evening. metoprolol 2020-0 Yes [id number] 25mg Take 1 [facility] tartrate 25 3-21 tablet by [facility]y of mg tablet 00:00: mouth [place] 00 every 12 Medical (twelve) Branch hours. cilostazoL 2020-0 Yes [id number] 100mg Take 2 [facility] (PLETAL) 50 3-21 tablets by it y of mg tablet 00:00: mouth 2 [place] 00 (two) Medical times Branch daily with meals. pravastatin 2020-0 Yes [id number] 40mg Take 1 [facility] 40 mg 3-21 tablet by [facility] of tablet 00:00: mouth at [place] 00 bedtime. Medical [facility] tamsulosin 2020-0 Yes [id number] .4mg Take 1 [facility] 0.4 mg 24 3-21 capsule by [facility]y of hr capsule 00:00: mouth [place] 00 daily. [facility] cilostazoL 2020-0 Yes [id number] 100mg Take 2 [facility] (PLETAL) 50 3-21 tablets by it y of mg tablet 00:00: mouth 2 [place] 00 (two) Medical times Branch daily with meals. furosemide 2020-0 Yes [id number] 20mg Take 1 [facility] (LASIX) 20 3-21 tablet by ity of mg tablet 00:00: mouth [place] 00 daily. [facility] bisacodyL 5 2020-0 Yes [id number] 5mg Take 1 [facility] mg EC 3-21 tablet by ity of tablet 00:00: mouth once [place] 00 daily as Medical needed for Branch Constipati on. Polyethylen 2020-0 Yes [id number] 17g Take 1 [facility] e Glycol 3-21 Packet by ity of 3350 17 00:00: mouth 2 [place] gram powder 00 (two) Medical times Branch daily. glipiZIDE 5 2020-0 Yes [id number] 5mg Take 1 [facility] mg tablet 3-21 tablet by ity o f 00:00: mouth [place] 00 every Medical morning Branch and evening. metoprolol 2020-0 Yes [id number] 25mg Take 1 [facility] tartrate 25 3-21 tablet by [facility]y of mg tablet 00:00: mouth [place] 00 every 12 Medical (twelve) Branch hours. cilostazoL 2020-0 Yes [id number] 100mg Take 2 [facility] (PLETAL) 50 3-21 tablets by it y of mg tablet 00:00: mouth 2 00 (two) Medical times Branch daily with meals. pravastatin 2020-0 Yes [id number] 40mg Take 1 [facility] 40 mg 3-21 tablet by [facility] of tablet 00:00: mouth at [place] 00 bedtime. [facility] pravastatin 2020-0 Yes [id number] 40mg Take 1 [facility] 40 mg 3-21 tablet by [facility]y of tablet 00:00: mouth at [place] 00 bedtime. Medical [facility] tamsulosin 2020-0 Yes [id number] .4mg Take 1 [facility] 0.4 mg 24 3-21 capsule by [facility] of hr capsule 00:00: mouth [place] 00 daily. [facility] tamsulosin 2020-0 Yes [id number] .4mg Take 1 [facility] 0.4 mg 24 3-21 capsule by [facility]y of hr capsule 00:00: mouth [place] 00 daily. [facility] bisacodyL 5 2020-0 Yes [id number] 5mg Take 1 [facility] mg EC 3-21 tablet by ity of tablet 00:00: mouth once [place] 00 daily as Medical needed for Branch Constipati on. Polyethylen 2020-0 Yes [id number] 17g Take 1 [facility] e Glycol 3-21 Packet by ity of 3350 17 00:00: mouth 2 [place] gram powder 00 (two) Medical times Branch daily. glipiZIDE 5 2020-0 Yes [id number] 5mg Take 1 [facility] mg tablet 3-21 tablet by ity o f 00:00: mouth [place] 00 every Medical morning Branch and evening. metoprolol 2020-0 Yes [id number] 25mg Take 1 [facility] tartrate 25 3-21 tablet by [facility]y of mg tablet 00:00: mouth [place] 00 every 12 Medical (twelve) Branch hours. cilostazoL 2020-0 Yes [id number] 100mg Take 2 [facility] (PLETAL) 50 3-21 tablets by it y of mg tablet 00:00: mouth 2 [place] 00 (two) Medical times Branch daily with meals. pravastatin 2020-0 Yes [id number] 40mg Take 1 [facility] 40 mg 3-21 tablet by [facility] of tablet 00:00: mouth at [place] 00 bedtime. Medical [facility] tamsulosin 2020-0 Yes [id number] .4mg Take 1 [facility] 0.4 mg 24 3-21 capsule by ity of hr capsule 00:00: mouth [place] 00 daily. [facility] bisacodyL 5 2020-0 Yes [id number] 5mg Take 1 [facility] mg EC 3-21 tablet by ity of tablet 00:00: mouth once [place] 00 daily as Medical needed for Branch Constipati on. Polyethylen 2020-0 Yes [id number] 17g Take 1 [facility] e Glycol 3-21 Packet by ity of 3350 17 00:00: mouth 2 [place] gram powder 00 (two) Medical times Branch daily. glipiZIDE 5 2020-0 Yes [id number] 5mg Take 1 [facility] mg tablet 3-21 tablet by ity o f 00:00: mouth [place] 00 every Medical morning Branch and evening. metoprolol 2020-0 Yes [id number] 25mg Take 1 [facility] tartrate 25 3-21 tablet by [facility]y of mg tablet 00:00: mouth [place] 00 every 12 Medical (twelve) Branch hours. cilostazoL 2020-0 Yes [id number] 100mg Take 2 [facility] (PLETAL) 50 3-21 tablets by it y of mg tablet 00:00: mouth 2 [place] 00 (two) Medical times Branch daily with meals. pravastatin 2020-0 Yes [id number] 40mg Take 1 [facility] 40 mg 3-21 tablet by [facility] of tablet 00:00: mouth at [place] 00 bedtime. [facility] tamsulosin 2020-0 Yes [id number] .4mg Take 1 [facility] 0.4 mg 24 3-21 capsule by [facility]y of hr capsule 00:00: mouth [place] 00 daily. [facility] bisacodyL 5 2020-0 Yes [id number] 5mg Take 1 [facility] mg EC 3-21 tablet by ity of tablet 00:00: mouth once 00 daily as Medical needed for Branch Constipati on. Polyethylen 2020-0 Yes [id number] 17g Take 1 [facility] e Glycol 3-21 Packet by ity of 3350 17 00:00: mouth 2 [place] gram powder 00 (two) Medical times Branch daily. glipiZIDE 5 2020-0 Yes [id number] 5mg Take 1 [facility] mg tablet 3-21 tablet by ity o f 00:00: mouth [place] 00 every Medical morning Branch and evening. metoprolol 2020-0 Yes [id number] 25mg Take 1 [facility] tartrate 25 3-21 tablet by ity of mg tablet 00:00: mouth [place] 00 every 12 Medical (twelve) Branch hours. cilostazoL 2020-0 Yes [id number] 100mg Take 2 [facility] (PLETAL) 50 3-21 tablets by it y of mg tablet 00:00: mouth 2 [place] 00 (two) Medical times Branch daily with meals. pravastatin 2020-0 Yes [id number] 40mg Take 1 [facility] 40 mg 3-21 tablet by [facility]y of tablet 00:00: mouth at [place] 00 bedtime. Medical [facility] tamsulosin 2020-0 Yes [id number] .4mg Take 1 [facility] 0.4 mg 24 3-21 capsule by ity of hr capsule 00:00: mouth [place] 00 daily. [facility] bisacodyL 5 2020-0 Yes [id number] 5mg Take 1 [facility] mg EC 3-21 tablet by ity of tablet 00:00: mouth once [place] 00 daily as Medical needed for Branch Constipati on. HYDROcodone 2020-0 Yes [id number] 1{tbl} Take 1 [facility] -acetaminop 3-21 tablet by ity of hen 5-325 00:00: mouth [place] mg tablet 00 every 6 Medical (six) Branch hours as needed for Pain (scale 4-6) or Pain (scale 7-10). bisacodyL 5 2020-0 Yes [id number] 5mg Take 1 [facility] mg EC 3-21 tablet by ity of tablet 00:00: mouth once [place] 00 daily as Medical needed for Branch Constipati on. Polyethylen 2020-0 Yes [id number] 17g Take 1 [facility] e Glycol 3-21 Packet by ity of 3350 17 00:00: mouth 2 [place] gram powder 00 (two) Medical times Branch daily. glipiZIDE 5 2020-0 Yes [id number] 5mg Take 1 [facility] mg tablet 3-21 tablet by ity o f 00:00: mouth [place] 00 every Medical morning Branch and evening. metoprolol 2020-0 Yes [id number] 25mg Take 1 [facility] tartrate 25 3-21 tablet by [facility]y of mg tablet 00:00: mouth [place] 00 every 12 Medical (twelve) Branch hours. Polyethylen 2020-0 Yes [id number] 17g Take 1 [facility] e Glycol 3-21 Packet by ity of 3350 17 00:00: mouth 2 [place] gram powder 00 (two) Medical times Branch daily. cilostazoL 2020-0 Yes [id number] 100mg Take 2 [facility] (PLETAL) 50 3-21 tablets by it y of mg tablet 00:00: mouth 2 [place] 00 (two) Medical times Branch daily with meals. pravastatin 2020-0 Yes [id number] 40mg Take 1 [facility] 40 mg 3-21 tablet by [facility]y of tablet 00:00: mouth at [place] 00 bedtime. Medical [facility] tamsulosin 2020-0 Yes [id number] .4mg Take 1 [facility] 0.4 mg 24 3-21 capsule by ity of hr capsule 00:00: mouth [place] 00 daily. [facility] enalapril 2020-0 Yes [id number] 10mg Take 1 [facility] 10 mg 3-21 tablet by [facility] of tablet 00:00: mouth [place] 00 daily. [facility] glipiZIDE 5 2020-0 Yes [id number] 5mg Take 1 [facility] mg tablet 3-21 tablet by ity o f 00:00: mouth [place] 00 every Medical morning Branch and evening. bisacodyL 5 2020-0 Yes [id number] 5mg Take 1 [facility] mg EC 3-21 tablet by ity of tablet 00:00: mouth once [place] 00 daily as Medical needed for Branch Constipati on. Polyethylen 2020-0 Yes [id number] 17g Take 1 [facility] e Glycol 3-21 Packet by ity of 3350 17 00:00: mouth 2 [place] gram powder 00 (two) Medical times Branch daily. glipiZIDE 5 2020-0 Yes [id number] 5mg Take 1 [facility] mg tablet 3-21 tablet by ity o f 00:00: mouth [place] 00 every Medical morning Branch and evening. metoprolol 2020-0 Yes [id number] 25mg Take 1 [facility] tartrate 25 3-21 tablet by ity of mg tablet 00:00: mouth [place] 00 every 12 Medical (twelve) Branch hours. cilostazoL 2020-0 Yes [id number] 100mg Take 2 [facility] (PLETAL) 50 3-21 tablets by it y of mg tablet 00:00: mouth 2 [place] 00 (two) Medical times Branch daily with meals. pravastatin 2020-0 Yes [id number] 40mg Take 1 [facility] 40 mg 3-21 tablet by [facility] of tablet 00:00: mouth at [place] 00 bedtime. Medical [facility] tamsulosin 2020-0 Yes [id number] .4mg Take 1 [facility] 0.4 mg 24 3-21 capsule by ity of hr capsule 00:00: mouth [place] 00 daily. [facility] clopidogreL 2020-0 Yes [id number] 75mg Take 1 [facility] 75 mg 3-21 tablet by [facility] of tablet 00:00: mouth [place] 00 daily. [facility] gabapentin 2020-0 Yes [id number] 100mg Take 1 [facility] 100 mg 3-21 capsule by [facility]y of capsule 00:00: mouth 3 [place] 00 (three) Medical times Branch daily. metoprolol 2020-0 Yes [id number] 25mg Take 1 [facility] tartrate 25 3-21 tablet by [facility]y of mg tablet 00:00: mouth [place] 00 every 12 Medical (twelve) Branch hours. bisacodyL 5 2020-0 Yes [id number] 5mg Take 1 [facility] mg EC 3-21 tablet by ity of tablet 00:00: mouth once 00 daily as Medical needed for Branch Constipati on. Polyethylen 2020-0 Yes [id number] 17g Take 1 [facility] e Glycol 3-21 Packet by [facility] of 3350 17 00:00: mouth 2 [place] gram powder 00 (two) Medical times Branch daily. glipiZIDE 5 2020-0 Yes [id number] 5mg Take 1 [facility] mg tablet 3-21 tablet by [facility] o f 00:00: mouth [place] 00 every Medical morning Branch and evening. metoprolol 2020-0 Yes [id number] 25mg Take 1 [facility] tartrate 25 3-21 tablet by [facility] of mg tablet 00:00: mouth 00 every 12 Medical (twelve) Branch hours. cilostazoL 2020-0 Yes [id number] 100mg Take 2 [facility] (PLETAL) 50 3-21 tablets by it y of mg tablet 00:00: mouth 2 (two) Medical times Branch daily with meals. pravastatin 2020-0 Yes [id number] 40mg Take 1 [facility] 40 mg 3-21 tablet by [facility] of tablet 00:00: mouth at 00 bedtime. Medical Branch tamsulosin 2020-0 Yes [id number] .4mg Take 1 [facility] 0.4 mg 24 3-21 capsule by [facility] of hr capsule 00:00: mouth 00 daily. Medical Branch aspirin 81 2020-0 Yes [id number] 81mg Take 1 [facility] mg chewable 3-21 tablet by [facility] of tablet 00:00: mouth 00 daily. [facility] Branch cilostazoL 2020-0 Yes [id number] 100mg Take 2 [facility] (PLETAL) 50 3-21 tablets by it y of mg tablet 00:00: mouth 2 [place] 00 (two) Medical times Branch daily with meals. bisacodyL 5 2020-0 Yes [id number] 5mg Take 1 [facility] mg EC 3-21 tablet by [facility] of tablet 00:00: mouth once 00 daily as Medical needed for Branch Constipati on. Polyethylen 2020-0 Yes [id number] 17g Take 1 [facility] e Glycol 3-21 Packet by [facility] of 3350 17 00:00: mouth 2 [place] gram powder 00 (two) Medical times Branch daily. glipiZIDE 5 2020-0 Yes [id number] 5mg Take 1 [facility] mg tablet 3-21 tablet by ity o f 00:00: mouth [place] 00 every Medical morning Branch and evening. metoprolol 2020-0 Yes [id number] 25mg Take 1 [facility] tartrate 25 3-21 tablet by [facility] of mg tablet 00:00: mouth [place] 00 every 12 Medical (twelve) Branch hours. cilostazoL 2020-0 Yes [id number] 100mg Take 2 [facility] (PLETAL) 50 3-21 tablets by it y of mg tablet 00:00: mouth 2 [place] 00 (two) Medical times Branch daily with meals. furosemide 2020-0 Yes [id number] 20mg Take 1 [facility] (LASIX) 20 3-21 tablet by [facility] of mg tablet 00:00: mouth [place] 00 daily. Medical [facility] pravastatin 2020-0 Yes [id number] 40mg Take 1 [facility] 40 mg 3-21 tablet by [facility] of tablet 00:00: mouth at [place] 00 bedtime. Medical Branch tamsulosin 2020-0 Yes [id number] .4mg Take 1 [facility] 0.4 mg 24 3-21 capsule by [facility] of hr capsule 00:00: mouth [place] 00 daily. Medical [facility] pravastatin 2020-0 Yes [id number] 40mg Take 1 [facility] 40 mg 3-21 tablet by [facility] of tablet 00:00: mouth at [place] 00 bedtime. Medical Branch bisacodyL 5 2020-0 Yes [id number] 5mg Take 1 [facility] mg EC 3-21 tablet by [facility] of tablet 00:00: mouth once [place] 00 daily as Medical needed for Branch Constipati on. Polyethylen 2020-0 Yes [id number] 17g Take 1 [facility] e Glycol 3-21 Packet by [facility] of 3350 17 00:00: mouth 2 [place] gram powder 00 (two) Medical times Branch daily. glipiZIDE 5 2020-0 Yes [id number] 5mg Take 1 [facility] mg tablet 3-21 tablet by it[facility] o f 00:00: mouth [place] 00 every Medical morning Branch and evening. tamsulosin 2020-0 Yes [id number] .4mg Take 1 [facility] 0.4 mg 24 3-21 capsule by [facility] of hr capsule 00:00: mouth [place] 00 daily. Medical Branch metoprolol 2020-0 Yes [id number] 25mg Take 1 [facility] tartrate 25 3-21 tablet by [facility] of mg tablet 00:00: mouth [place] 00 every 12 Medical (twelve) Branch hours. cilostazoL 2020-0 Yes [id number] 100mg Take 2 [facility] (PLETAL) 50 3-21 tablets by it y of mg tablet 00:00: mouth 2 (two) Medical times Branch daily with meals. pravastatin 2020-0 Yes [id number] 40mg Take 1 [facility] 40 mg 3-21 tablet by [facility] of tablet 00:00: mouth at [place] 00 bedtime. Medical Branch tamsulosin 2020-0 Yes [id number] .4mg Take 1 [facility] 0.4 mg 24 3-21 capsule by [facility] of hr capsule 00:00: mouth 00 daily. Medical Branch bisacodyL 5 2020-0 Yes [id number] 5mg Take 1 [facility] mg EC 3-21 tablet by [facility] of tablet 00:00: mouth once 00 daily as Medical needed for Branch Constipati on. Polyethylen 2020-0 Yes [id number] 17g Take 1 [facility] e Glycol 3-21 Packet by [facility] of 3350 17 00:00: mouth [place] (two) Medical times [facility] daily. glipiZIDE 5 2020-0 Yes [id number] 5mg Take 1 [facility] mg tablet 3-21 tablet by it[facility] o f 00:00: mouth 00 every Medical morning Branch and evening. metoprolol 2020-0 Yes [id number] 25mg Take 1 [facility] tartrate 25 3-21 tablet by [facility] of mg tablet 00:00: mouth [place] 00 every 12 Medical (twelve) Branch hours. cilostazoL 2020-0 Yes [id number] 100mg Take 2 [facility] (PLETAL) 50 3-21 tablets by it y of mg tablet 00:00: mouth 2 (two) Medical times Branch daily with meals. pravastatin 2020-0 Yes [id number] 40mg Take 1 [facility] 40 mg 3-21 tablet by [facility] of tablet 00:00: mouth at [place] 00 bedtime. Medical Branch tamsulosin 2020-0 Yes [id number] .4mg Take 1 [facility] 0.4 mg 24 3-21 capsule by it[facility] of hr capsule 00:00: mouth [place] 00 daily. Medical Branch bisacodyL 5 2020-0 Yes [id number] 5mg Take 1 [facility] mg EC 3-21 tablet by it[facility] of tablet 00:00: mouth once 00 daily as Medical needed for Branch Constipati on. Polyethylen 2020-0 Yes [id number] 17g Take 1 [facility] e Glycol 3-21 Packet by [facility] of 3350 17 00:00: mouth 2 [place] gram powder 00 (two) Medical times Branch daily. glipiZIDE 5 2020-0 Yes [id number] 5mg Take 1 [facility] mg tablet 3-21 tablet by ity o f 00:00: mouth [place] 00 every Medical morning Branch and evening. metoprolol 2020-0 Yes [id number] 25mg Take 1 [facility] tartrate 25 3-21 tablet by [facility] of mg tablet 00:00: mouth [place] 00 every 12 Medical (twelve) Branch hours. cilostazoL 2020-0 Yes [id number] 100mg Take 2 [facility] (PLETAL) 50 3-21 tablets by it y of mg tablet 00:00: mouth 2 (two) Medical times Branch daily with meals. pravastatin 2020-0 Yes [id number] 40mg Take 1 [facility] 40 mg 3-21 tablet by [facility] of tablet 00:00: mouth at [place] 00 bedtime. Medical Branch tamsulosin 2020-0 Yes [id number] .4mg Take 1 [facility] 0.4 mg 24 3-21 capsule by [facility] of hr capsule 00:00: mouth [place] 00 daily. Medical Branch bisacodyL 5 2020-0 Yes [id number] 5mg Take 1 [facility] mg EC 3-21 tablet by [facility] of tablet 00:00: mouth once [place] 00 daily as Medical needed for Branch Constipati on. Polyethylen 2020-0 Yes [id number] 17g Take 1 [facility] e Glycol 3-21 Packet by ity of 3350 17 00:00: mouth 2 [place] gram powder 00 (two) Medical times Branch daily. glipiZIDE 5 2020-0 Yes [id number] 5mg Take 1 [facility] mg tablet 3-21 tablet by ity o f 00:00: mouth [place] 00 every Medical morning Branch and evening. metoprolol 2020-0 Yes [id number] 25mg Take 1 [facility] tartrate 25 3-21 tablet by ity of mg tablet 00:00: mouth [place] 00 every 12 Medical (twelve) Branch hours. cilostazoL 2020-0 Yes [id number] 100mg Take 2 [facility] (PLETAL) 50 3-21 tablets by it y of mg tablet 00:00: mouth 2 [place] (two) Medical times Branch daily with meals. pravastatin 2020-0 Yes [id number] 40mg Take 1 [facility] 40 mg 3-21 tablet by it[facility] of tablet 00:00: mouth at [place] 00 bedtime. Medical Branch tamsulosin 2020-0 Yes [id number] .4mg Take 1 [facility] 0.4 mg 24 3-21 capsule by ity of hr capsule 00:00: mouth [place] 00 daily. Medical Branch bisacodyL 5 2020-0 Yes [id number] 5mg Take 1 [facility] mg EC 3-21 tablet by ity of tablet 00:00: mouth once [place] 00 daily as Medical needed for Branch Constipati on. HYDROcodone 2020-0 Yes [id number] 1{tbl} Take 1 [facility] -acetaminop 3-21 tablet by ity of hen 5-325 00:00: mouth [place] mg tablet 00 every 6 Medical (six) Branch hours as needed for Pain (scale 4-6) or Pain (scale 7-10). bisacodyL 5 2020-0 Yes [id number] 5mg Take 1 [facility] mg EC 3-21 tablet by ity of tablet 00:00: mouth once [place] 00 daily as Medical needed for Branch Constipati on. Polyethylen 2020-0 Yes [id number] 17g Take 1 [facility] e Glycol 3-21 Packet by ity of 3350 17 00:00: mouth 2 [place] gram powder 00 (two) Medical times Branch daily. glipiZIDE 5 2020-0 Yes [id number] 5mg Take 1 [facility] mg tablet 3-21 tablet by ity o f 00:00: mouth [place] 00 every Medical morning Branch and evening. metoprolol 2020-0 Yes [id number] 25mg Take 1 [facility] tartrate 25 3-21 tablet by ity of mg tablet 00:00: mouth [place] 00 every 12 Medical (twelve) Branch hours. cilostazoL 2020-0 Yes [id number] 100mg Take 2 [facility] (PLETAL) 50 3-21 tablets by it y of mg tablet 00:00: mouth 2 [place] 00 (two) Medical times Branch daily with meals. pravastatin 2020-0 Yes [id number] 40mg Take 1 [facility] 40 mg 3-21 tablet by [facility] of tablet 00:00: mouth at [place] 00 bedtime. Medical Branch tamsulosin 2020-0 Yes [id number] .4mg Take 1 [facility] 0.4 mg 24 3-21 capsule by ity of hr capsule 00:00: mouth [place] 00 daily. Medical Branch Polyethylen 2020-0 Yes [id number] 17g Take 1 [facility] e Glycol 3-21 Packet by ity of 3350 17 00:00: mouth 2 [place] gram powder 00 (two) Medical times Branch daily. enalapril 2020-0 Yes [id number] 10mg Take 1 [facility] 10 mg 3-21 tablet by [facility] of tablet 00:00: mouth [place] 00 daily. Medical Branch bisacodyL 5 2020-0 Yes [id number] 5mg Take 1 [facility] mg EC 3-21 tablet by ity of tablet 00:00: mouth once [place] 00 daily as Medical needed for Branch Constipati on. Polyethylen 2020-0 Yes [id number] 17g Take 1 [facility] e Glycol 3-21 Packet by ity of 3350 17 00:00: mouth 2 [place] gram powder 00 (two) Medical times Branch daily. glipiZIDE 5 2020-0 Yes [id number] 5mg Take 1 [facility] mg tablet 3-21 tablet by ity o f 00:00: mouth [place] 00 every Medical morning Branch and evening. metoprolol 2020-0 Yes [id number] 25mg Take 1 [facility] tartrate 25 3-21 tablet by ity of mg tablet 00:00: mouth [place] 00 every 12 Medical (twelve) Branch hours. cilostazoL 2020-0 Yes [id number] 100mg Take 2 [facility] (PLETAL) 50 3-21 tablets by it y of mg tablet 00:00: mouth 2 [place] 00 (two) Medical times Branch daily with meals. pravastatin 2020-0 Yes [id number] 40mg Take 1 [facility] 40 mg 3-21 tablet by ity of tablet 00:00: mouth at [place] 00 bedtime. Medical Branch tamsulosin 2020-0 Yes [id number] .4mg Take 1 [facility] 0.4 mg 24 3-21 capsule by ity of hr capsule 00:00: mouth [place] 00 daily. Medical Branch glipiZIDE 5 2020-0 Yes [id number] 5mg Take 1 [facility] mg tablet 3-21 tablet by ity o f 00:00: mouth [place] 00 every Medical morning Branch and evening. clopidogreL 2020-0 Yes [id number] 75mg Take 1 [facility] 75 mg 3-21 tablet by ity of tablet 00:00: mouth [place] 00 daily. Medical Branch bisacodyL 5 2020-0 Yes [id number] 5mg Take 1 [facility] mg EC 3-21 tablet by ity of tablet 00:00: mouth once 00 daily as Medical needed for Branch Constipati on. Polyethylen 2020-0 Yes [id number] 17g Take 1 [facility] e Glycol 3-21 Packet by ity of 3350 17 00:00: mouth 2 [place] gram powder 00 (two) Medical times Branch daily. glipiZIDE 5 2020-0 Yes [id number] 5mg Take 1 [facility] mg tablet 3-21 tablet by ity o f 00:00: mouth [place] 00 every Medical morning Branch and evening. metoprolol 2020-0 Yes [id number] 25mg Take 1 [facility] tartrate 25 3-21 tablet by ity of mg tablet 00:00: mouth [place] 00 every 12 Medical (twelve) Branch hours. cilostazoL 2020-0 Yes [id number] 100mg Take 2 [facility] (PLETAL) 50 3-21 tablets by it y of mg tablet 00:00: mouth 2 (two) Medical times Branch daily with meals. pravastatin 2020-0 Yes [id number] 40mg Take 1 [facility] 40 mg 3-21 tablet by it[facility] of tablet 00:00: mouth at [place] 00 bedtime. Medical Branch tamsulosin 2020-0 Yes [id number] .4mg Take 1 [facility] 0.4 mg 24 3-21 capsule by ity of hr capsule 00:00: mouth 00 daily. Medical Branch gabapentin 2020-0 Yes [id number] 100mg Take 1 [facility] 100 mg 3-21 capsule by ity of capsule 00:00: mouth 3 [place] 00 (three) Medical times Branch daily. metoprolol 2020-0 Yes [id number] 25mg Take 1 [facility] tartrate 25 3-21 tablet by ity of mg tablet 00:00: mouth [place] 00 every 12 Medical (twelve) Branch hours. aspirin 81 2020-0 Yes [id number] 81mg Take 1 [facility] mg chewable 3-21 tablet by [facility]y of tablet 00:00: mouth [place] 00 daily. Medical Branch cilostazoL 2020-0 Yes [id number] 100mg Take 2 [facility] (PLETAL) 50 3-21 tablets by it y of mg tablet 00:00: mouth 2 [place] 00 (two) Medical times Branch daily with meals. furosemide 2020-0 Yes [id number] 20mg Take 1 [facility] (LASIX) 20 3-21 tablet by ity of mg tablet 00:00: mouth [place] 00 daily. Medical Branch pravastatin 2020-0 Yes [id number] 40mg Take 1 [facility] 40 mg 3-21 tablet by ity of tablet 00:00: mouth at [place] 00 bedtime. Medical Branch tamsulosin 2020-0 Yes [id number] .4mg Take 1 [facility] 0.4 mg 24 3-21 capsule by ity of hr capsule 00:00: mouth [place] 00 daily. Medical [facility] bisacodyL 5 2020-0 Yes [id number] 5mg Take 1 [facility] mg EC 3-21 tablet by ity of tablet 00:00: mouth once [place] 00 daily as Medical needed for Branch Constipati on. HYDROcodone 2020-0 Yes [id number] 1{tbl} Take 1 [facility] -acetaminop 3-21 tablet by ity of hen 5-325 00:00: mouth [place] mg tablet 00 every 6 Medical (six) Branch hours as needed for Pain (scale 4-6) or Pain (scale 7-10). Polyethylen 2020-0 Yes [id number] 17g Take 1 [facility] e Glycol 3-21 Packet by ity of 3350 17 00:00: mouth 2 [place] gram powder 00 (two) Medical times Branch daily. enalapril 2020-0 Yes [id number] 10mg Take 1 [facility] 10 mg 3-21 tablet by ity of tablet 00:00: mouth [place] 00 daily. Medical Branch glipiZIDE 5 2020-0 Yes [id number] 5mg Take 1 [facility] mg tablet 3-21 tablet by ity o f 00:00: mouth [place] 00 every Medical morning Branch and evening. clopidogreL 2020-0 Yes [id number] 75mg Take 1 [facility] 75 mg 3-21 tablet by ity of tablet 00:00: mouth [place] 00 daily. Medical Branch gabapentin 2020-0 Yes [id number] 100mg Take 1 [facility] 100 mg 3-21 capsule by ity of capsule 00:00: mouth 3 [place] 00 (three) Medical times Branch daily. metoprolol 2020-0 Yes [id number] 25mg Take 1 [facility] tartrate 25 3-21 tablet by ity of mg tablet 00:00: mouth [place] 00 every 12 Medical (twelve) Branch hours. aspirin 81 2020-0 Yes [id number] 81mg Take 1 [facility] mg chewable 3-21 tablet by ity of tablet 00:00: mouth [place] 00 daily. Medical [facility] cilostazoL 2020-0 Yes [id number] 100mg Take 2 [facility] (PLETAL) 50 3-21 tablets by it y of mg tablet 00:00: mouth 2 [place] 00 (two) Medical times Branch daily with meals. furosemide 2020-0 Yes [id number] 20mg Take 1 [facility] (LASIX) 20 3-21 tablet by ity of mg tablet 00:00: mouth [place] 00 daily. Medical [facility] pravastatin 2020-0 Yes [id number] 40mg Take 1 [facility] 40 mg 3-21 tablet by ity of tablet 00:00: mouth at [place] 00 bedtime. Medical [facility] tamsulosin 2020-0 Yes [id number] .4mg Take 1 [facility] 0.4 mg 24 3-21 capsule by ity of hr capsule 00:00: mouth [place] 00 daily. Medical [facility] bisacodyL 5 2020-0 Yes [id number] 5mg Take 1 [facility] mg EC 3-21 tablet by ity of tablet 00:00: mouth once [place] 00 daily as Medical needed for Branch Constipati on. HYDROcodone 2020-0 Yes [id number] 1{tbl} Take 1 [facility] -acetaminop 3-21 tablet by ity of hen 5-325 00:00: mouth [place] mg tablet 00 every 6 Medical (six) Branch hours as needed for Pain (scale 4-6) or Pain (scale 7-10). Polyethylen 2020-0 Yes [id number] 17g Take 1 [facility] e Glycol 3-21 Packet by ity of 3350 17 00:00: mouth 2 [place] gram powder 00 (two) Medical times Branch daily. enalapril 2020-0 Yes [id number] 10mg Take 1 [facility] 10 mg 3-21 tablet by ity of tablet 00:00: mouth [place] 00 daily. Medical Branch glipiZIDE 5 2020-0 Yes [id number] 5mg Take 1 [facility] mg tablet 3-21 tablet by ity o f 00:00: mouth [place] 00 every Medical morning Branch and evening. clopidogreL 2020-0 Yes [id number] 75mg Take 1 [facility] 75 mg 3-21 tablet by ity of tablet 00:00: mouth [place] 00 daily. Medical Branch gabapentin 2020-0 Yes [id number] 100mg Take 1 [facility] 100 mg 3-21 capsule by ity of capsule 00:00: mouth 3 [place] 00 (three) Medical times Branch daily. metoprolol 2020-0 Yes [id number] 25mg Take 1 [facility] tartrate 25 3-21 tablet by ity of mg tablet 00:00: mouth [place] 00 every 12 Medical (twelve) Branch hours. aspirin 81 2020-0 Yes [id number] 81mg Take 1 [facility] mg chewable 3-21 tablet by ity of tablet 00:00: mouth [place] 00 daily. Medical [facility] cilostazoL 2020-0 Yes [id number] 100mg Take 2 [facility] (PLETAL) 50 3-21 tablets by it y of mg tablet 00:00: mouth 2 [place] 00 (two) Medical times Branch daily with meals. furosemide 2020-0 Yes [id number] 20mg Take 1 [facility] (LASIX) 20 3-21 tablet by ity of mg tablet 00:00: mouth [place] 00 daily. Medical [facility] pravastatin 2020-0 Yes [id number] 40mg Take 1 [facility] 40 mg 3-21 tablet by ity of tablet 00:00: mouth at [place] 00 bedtime. Medical [facility] tamsulosin 2020-0 Yes [id number] .4mg Take 1 [facility] 0.4 mg 24 3-21 capsule by ity of hr capsule 00:00: mouth [place] 00 daily. Medical [facility] bisacodyL 5 2020-0 Yes [id number] 5mg Take 1 [facility] mg EC 3-21 tablet by ity of tablet 00:00: mouth once [place] 00 daily as Medical needed for Branch Constipati on. Polyethylen 2020-0 Yes [id number] 17g Take 1 [facility] e Glycol 3-21 Packet by ity of 3350 17 00:00: mouth 2 [place] gram powder 00 (two) Medical times Branch daily. glipiZIDE 5 2020-0 Yes [id number] 5mg Take 1 [facility] mg tablet 3-21 tablet by ity o f 00:00: mouth [place] 00 every Medical morning Branch and evening. clopidogreL 2020-0 Yes [id number] 75mg Take 1 [facility] 75 mg 3-21 tablet by ity of tablet 00:00: mouth [place] 00 daily. Medical Branch gabapentin 2020-0 Yes [id number] 100mg Take 1 [facility] 100 mg 3-21 capsule by ity of capsule 00:00: mouth 3 [place] 00 (three) Medical times Branch daily. metoprolol 2020-0 Yes [id number] 25mg Take 1 [facility] tartrate 25 3-21 tablet by ity of mg tablet 00:00: mouth [place] 00 every 12 Medical (twelve) Branch hours. aspirin 81 2020-0 Yes [id number] 81mg Take 1 [facility] mg chewable 3-21 tablet by ity of tablet 00:00: mouth [place] 00 daily. Medical [facility] cilostazoL 2020-0 Yes [id number] 100mg Take 2 [facility] (PLETAL) 50 3-21 tablets by it y of mg tablet 00:00: mouth 2 [place] 00 (two) Medical times Branch daily with meals. furosemide 2020-0 Yes [id number] 20mg Take 1 [facility] (LASIX) 20 3-21 tablet by ity of mg tablet 00:00: mouth [place] 00 daily. Medical [facility] pravastatin 2020-0 Yes [id number] 40mg Take 1 [facility] 40 mg 3-21 tablet by ity of tablet 00:00: mouth at [place] 00 bedtime. Medical [facility] tamsulosin 2020-0 Yes [id number] .4mg Take 1 [facility] 0.4 mg 24 3-21 capsule by ity of hr capsule 00:00: mouth [place] 00 daily. Medical [facility] bisacodyL 5 2020-0 Yes [id number] 5mg Take 1 [facility] mg EC 3-21 tablet by ity of tablet 00:00: mouth once [place] 00 daily as Medical needed for Branch Constipati on. Polyethylen 2020-0 Yes [id number] 17g Take 1 [facility] e Glycol 3-21 Packet by ity of 3350 17 00:00: mouth 2 [place] gram powder 00 (two) Medical times Branch daily. glipiZIDE 5 2020-0 Yes [id number] 5mg Take 1 [facility] mg tablet 3-21 tablet by ity o f 00:00: mouth [place] 00 every Medical morning Branch and evening. clopidogreL 2020-0 Yes [id number] 75mg Take 1 [facility] 75 mg 3-21 tablet by ity of tablet 00:00: mouth [place] 00 daily. Medical Branch gabapentin 2020-0 Yes [id number] 100mg Take 1 [facility] 100 mg 3-21 capsule by ity of capsule 00:00: mouth 3 [place] 00 (three) Medical times Branch daily. metoprolol 2020-0 Yes [id number] 25mg Take 1 [facility] tartrate 25 3-21 tablet by ity of mg tablet 00:00: mouth [place] 00 every 12 Medical (twelve) Branch hours. aspirin 81 2020-0 Yes [id number] 81mg Take 1 [facility] mg chewable 3-21 tablet by ity of tablet 00:00: mouth [place] 00 daily. Medical [facility] cilostazoL 2020-0 Yes [id number] 100mg Take 2 [facility] (PLETAL) 50 3-21 tablets by it y of mg tablet 00:00: mouth 2 [place] 00 (two) Medical times Branch daily with meals. furosemide 2020-0 Yes [id number] 20mg Take 1 [facility] (LASIX) 20 3-21 tablet by ity of mg tablet 00:00: mouth [place] 00 daily. Medical [facility] pravastatin 2020-0 Yes [id number] 40mg Take 1 [facility] 40 mg 3-21 tablet by ity of tablet 00:00: mouth at [place] 00 bedtime. Medical [facility] tamsulosin 2020-0 Yes [id number] .4mg Take 1 [facility] 0.4 mg 24 3-21 capsule by ity of hr capsule 00:00: mouth [place] 00 daily. Medical [facility] bisacodyL 5 2020-0 Yes [id number] 5mg Take 1 [facility] mg EC 3-21 tablet by ity of tablet 00:00: mouth once [place] 00 daily as Medical needed for Branch Constipati on. Polyethylen 2020-0 Yes [id number] 17g Take 1 [facility] e Glycol 3-21 Packet by ity of 3350 17 00:00: mouth 2 [place] gram powder 00 (two) Medical times Branch daily. glipiZIDE 5 2020-0 Yes [id number] 5mg Take 1 [facility] mg tablet 3-21 tablet by ity o f 00:00: mouth [place] 00 every Medical morning Branch and evening. clopidogreL 2020-0 Yes [id number] 75mg Take 1 [facility] 75 mg 3-21 tablet by ity of tablet 00:00: mouth [place] 00 daily. Medical Branch gabapentin 2020-0 Yes [id number] 100mg Take 1 [facility] 100 mg 3-21 capsule by ity of capsule 00:00: mouth 3 [place] 00 (three) Medical times Branch daily. metoprolol 2020-0 Yes [id number] 25mg Take 1 [facility] tartrate 25 3-21 tablet by ity of mg tablet 00:00: mouth [place] 00 every 12 Medical (twelve) Branch hours. aspirin 81 2020-0 Yes [id number] 81mg Take 1 [facility] mg chewable 3-21 tablet by ity of tablet 00:00: mouth [place] 00 daily. Medical [facility] cilostazoL 2020-0 Yes [id number] 100mg Take 2 [facility] (PLETAL) 50 3-21 tablets by it y of mg tablet 00:00: mouth 2 [place] 00 (two) Medical times Branch daily with meals. furosemide 2020-0 Yes [id number] 20mg Take 1 [facility] (LASIX) 20 3-21 tablet by ity of mg tablet 00:00: mouth [place] 00 daily. Medical [facility] pravastatin 2020-0 Yes [id number] 40mg Take 1 [facility] 40 mg 3-21 tablet by ity of tablet 00:00: mouth at [place] 00 bedtime. Medical [facility] tamsulosin 2020-0 Yes [id number] .4mg Take 1 [facility] 0.4 mg 24 3-21 capsule by ity of hr capsule 00:00: mouth [place] 00 daily. Medical [facility] bisacodyL 5 2020-0 Yes [id number] 5mg Take 1 [facility] mg EC 3-21 tablet by ity of tablet 00:00: mouth once [place] 00 daily as Medical needed for Branch Constipati on. Polyethylen 2020-0 Yes [id number] 17g Take 1 [facility] e Glycol 3-21 Packet by ity of 3350 17 00:00: mouth 2 [place] gram powder 00 (two) Medical times Branch daily. glipiZIDE 5 2020-0 Yes [id number] 5mg Take 1 [facility] mg tablet 3-21 tablet by ity o f 00:00: mouth [place] 00 every Medical morning Branch and evening. clopidogreL 2020-0 Yes [id number] 75mg Take 1 [facility] 75 mg 3-21 tablet by [facility]y of tablet 00:00: mouth [place] 00 daily. Medical Branch gabapentin 2020-0 Yes [id number] 100mg Take 1 [facility] 100 mg 3-21 capsule by ity of capsule 00:00: mouth 3 [place] 00 (three) Medical times Branch daily. bisacodyL 5 2020-0 Yes [id number] 5mg Take 1 [facility] mg EC 3-21 tablet by ity of tablet 00:00: mouth once [place] 00 daily as Medical needed for Branch Constipati on. metoprolol 2020-0 Yes [id number] 25mg Take 1 [facility] tartrate 25 3-21 tablet by ity of mg tablet 00:00: mouth [place] 00 every 12 Medical (twelve) Branch hours. aspirin 81 2020-0 Yes [id number] 81mg Take 1 [facility] mg chewable 3-21 tablet by ity of tablet 00:00: mouth [place] 00 daily. Medical [facility] cilostazoL 2020-0 Yes [id number] 100mg Take 2 [facility] (PLETAL) 50 3-21 tablets by it y of mg tablet 00:00: mouth 2 [place] 00 (two) Medical times Branch daily with meals. furosemide 2020-0 Yes [id number] 20mg Take 1 [facility] (LASIX) 20 3-21 tablet by ity of mg tablet 00:00: mouth [place] 00 daily. Medical [facility] pravastatin 2020-0 Yes [id number] 40mg Take 1 [facility] 40 mg 3-21 tablet by [facility]y of tablet 00:00: mouth at [place] 00 bedtime. Medical [facility] tamsulosin 2020-0 Yes [id number] .4mg Take 1 [facility] 0.4 mg 24 3-21 capsule by ity of hr capsule 00:00: mouth [place] 00 daily. Medical Branch HYDROcodone 2020-0 Yes [id number] 1{tbl} Take 1 [facility] -acetaminop 3-21 tablet by ity of hen 5-325 00:00: mouth [place] mg tablet 00 every 6 Medical (six) Branch hours as needed for Pain (scale 4-6) or Pain (scale 7-10). Polyethylen 2020-0 Yes [id number] 17g Take 1 [facility] e Glycol 3-21 Packet by ity of 3350 17 00:00: mouth 2 [place] gram powder 00 (two) Medical times Branch daily. bisacodyL 5 2020-0 Yes [id number] 5mg Take 1 [facility] mg EC 3-21 tablet by ity of tablet 00:00: mouth once [place] 00 daily as Medical needed for Branch Constipati on. Polyethylen 2020-0 Yes [id number] 17g Take 1 [facility] e Glycol 3-21 Packet by ity of 3350 17 00:00: mouth 2 [place] gram powder 00 (two) Medical times Branch daily. glipiZIDE 5 2020-0 Yes [id number] 5mg Take 1 [facility] mg tablet 3-21 tablet by ity o f 00:00: mouth [place] 00 every Medical morning Branch and evening. gabapentin 2020-0 Yes [id number] 100mg Take 1 [facility] 100 mg 3-21 capsule by [facility]y of capsule 00:00: mouth 3 [place] 00 (three) Medical times Branch daily. metoprolol 2020-0 Yes [id number] 25mg Take 1 [facility] tartrate 25 3-21 tablet by ity of mg tablet 00:00: mouth [place] 00 every 12 Medical (twelve) Branch hours. aspirin 81 2020-0 Yes [id number] 81mg Take 1 [facility] mg chewable 3-21 tablet by ity of tablet 00:00: mouth [place] 00 daily. Medical Branch cilostazoL 2020-0 Yes [id number] 100mg Take 2 [facility] (PLETAL) 50 3-21 tablets by it y of mg tablet 00:00: mouth 2 00 (two) Medical times Branch daily with meals. furosemide 2020-0 Yes [id number] 20mg Take 1 [facility] (LASIX) 20 3-21 tablet by ity of mg tablet 00:00: mouth [place] 00 daily. Medical Branch pravastatin 2020-0 Yes [id number] 40mg Take 1 [facility] 40 mg 3-21 tablet by ity of tablet 00:00: mouth at [place] 00 bedtime. Medical Branch tamsulosin 2020-0 Yes [id number] .4mg Take 1 [facility] 0.4 mg 24 3-21 capsule by ity of hr capsule 00:00: mouth [place] 00 daily. Medical Branch enalapril 2020-0 Yes [id number] 10mg Take 1 U nivers 10 mg 3-21 tablet by ity of tablet 00:00: mouth [place] 00 daily. Medical Branch glipiZIDE 5 2020-0 Yes [id number] 5mg Take 1 [facility] mg tablet 3-21 tablet by ity o f 00:00: mouth [place] 00 every Medical morning Branch and evening. clopidogreL 2020-0 Yes [id number] 75mg Take 1 [facility] 75 mg 3-21 tablet by ity of tablet 00:00: mouth [place] 00 daily. Medical Branch gabapentin 2020-0 Yes [id number] 100mg Take 1 [facility] 100 mg 3-21 capsule by ity of capsule 00:00: mouth 3 00 (three) Medical times Branch daily. metoprolol 2020-0 Yes [id number] 25mg Take 1 [facility] tartrate 25 3-21 tablet by ity of mg tablet 00:00: mouth [place] 00 every 12 Medical (twelve) Branch hours. aspirin 81 2020-0 Yes [id number] 81mg Take 1 [facility] mg chewable 3-21 tablet by ity of tablet 00:00: mouth [place] 00 daily. Medical Branch cilostazoL 2020-0 Yes [id number] 100mg Take 2 [facility] (PLETAL) 50 3-21 tablets by it y of mg tablet 00:00: mouth 2 (two) Medical times Branch daily with meals. furosemide 2020-0 Yes [id number] 20mg Take 1 [facility] (LASIX) 20 3-21 tablet by ity of mg tablet 00:00: mouth [place] 00 daily. Medical Branch pravastatin 2020-0 Yes [id number] 40mg Take 1 [facility] 40 mg 3-21 tablet by ity of tablet 00:00: mouth at [place] 00 bedtime. Medical Branch bisacodyL 5 2020-0 Yes [id number] 5mg Take 1 [facility] mg EC 3-21 tablet by ity of tablet 00:00: mouth once [place] 00 daily as Medical needed for Branch Constipati on. tamsulosin 2020-0 Yes [id number] .4mg Take 1 [facility] 0.4 mg 24 3-21 capsule by ity of hr capsule 00:00: mouth [place] 00 daily. Medical Branch Polyethylen 2020-0 Yes [id number] 17g Take 1 [facility] e Glycol 3-21 Packet by ity of 3350 17 00:00: mouth 2 [place] gram powder 00 (two) Medical times Branch daily. glipiZIDE 5 2020-0 Yes [id number] 5mg Take 1 [facility] mg tablet 3-21 tablet by ity o f 00:00: mouth [place] 00 every Medical morning Branch and evening. gabapentin 2020-0 Yes [id number] 100mg Take 1 [facility] 100 mg 3-21 capsule by ity of capsule 00:00: mouth 3 [place] 00 (three) Medical times Branch daily. metoprolol 2020-0 Yes [id number] 25mg Take 1 [facility] tartrate 25 3-21 tablet by ity of mg tablet 00:00: mouth [place] 00 every 12 Medical (twelve) Branch hours. aspirin 81 2020-0 Yes [id number] 81mg Take 1 [facility] mg chewable 3-21 tablet by ity of tablet 00:00: mouth [place] 00 daily. Medical Branch cilostazoL 2020-0 Yes [id number] 100mg Take 2 [facility] (PLETAL) 50 3-21 tablets by it y of mg tablet 00:00: mouth 2 [place] 00 (two) Medical times Branch daily with meals. furosemide 2020-0 Yes [id number] 20mg Take 1 [facility] (LASIX) 20 3-21 tablet by ity of mg tablet 00:00: mouth [place] 00 daily. Medical Branch pravastatin 2020-0 Yes [id number] 40mg Take 1 [facility] 40 mg 3-21 tablet by ity of tablet 00:00: mouth at [place] 00 bedtime. Medical Branch tamsulosin 2020-0 Yes [id number] .4mg Take 1 [facility] 0.4 mg 24 3-21 capsule by ity of hr capsule 00:00: mouth [place] 00 daily. Medical Branch bisacodyL 5 2020-0 Yes [id number] 5mg Take 1 [facility] mg EC 3-21 tablet by ity of tablet 00:00: mouth once [place] 00 daily as Medical needed for Branch Constipati on. Polyethylen 2020-0 Yes [id number] 17g Take 1 [facility] e Glycol 3-21 Packet by ity of 3350 17 00:00: mouth 2 [place] gram powder 00 (two) Medical times Branch daily. glipiZIDE 5 2020-0 Yes [id number] 5mg Take 1 [facility] mg tablet 3-21 tablet by ity o f 00:00: mouth [place] 00 every Medical morning Branch and evening. gabapentin 2020-0 Yes [id number] 100mg Take 1 [facility] 100 mg 3-21 capsule by ity of capsule 00:00: mouth 3 [place] 00 (three) Medical times Branch daily. metoprolol 2020-0 Yes [id number] 25mg Take 1 [facility] tartrate 25 3-21 tablet by ity of mg tablet 00:00: mouth [place] 00 every 12 Medical (twelve) Branch hours. aspirin 81 2020-0 Yes [id number] 81mg Take 1 [facility] mg chewable 3-21 tablet by ity of tablet 00:00: mouth [place] 00 daily. Medical Branch cilostazoL 2020-0 Yes [id number] 100mg Take 2 [facility] (PLETAL) 50 3-21 tablets by it y of mg tablet 00:00: mouth 2 [place] 00 (two) Medical times Branch daily with meals. furosemide 2020-0 Yes [id number] 20mg Take 1 [facility] (LASIX) 20 3-21 tablet by ity of mg tablet 00:00: mouth [place] 00 daily. Medical Branch pravastatin 2020-0 Yes [id number] 40mg Take 1 [facility] 40 mg 3-21 tablet by ity of tablet 00:00: mouth at [place] 00 bedtime. Medical Branch tamsulosin 2020-0 Yes [id number] .4mg Take 1 [facility] 0.4 mg 24 3-21 capsule by ity of hr capsule 00:00: mouth [place] 00 daily. Medical Branch bisacodyL 5 2020-0 Yes [id number] 5mg Take 1 [facility] mg EC 3-21 tablet by ity of tablet 00:00: mouth once [place] 00 daily as Medical needed for Branch Constipati on. Polyethylen 2020-0 Yes [id number] 17g Take 1 [facility] e Glycol 3-21 Packet by ity of 3350 17 00:00: mouth 2 [place] gram powder 00 (two) Medical times Branch daily. glipiZIDE 5 2020-0 Yes [id number] 5mg Take 1 [facility] mg tablet 3-21 tablet by ity o f 00:00: mouth [place] 00 every Medical morning Branch and evening. metoprolol 2020-0 Yes [id number] 25mg Take 1 [facility] tartrate 25 3-21 tablet by ity of mg tablet 00:00: mouth [place] 00 every 12 Medical (twelve) Branch hours. cilostazoL 2020-0 Yes [id number] 100mg Take 2 [facility] (PLETAL) 50 3-21 tablets by it y of mg tablet 00:00: mouth 2 [place] 00 (two) Medical times Branch daily with meals. pravastatin 2020-0 Yes [id number] 40mg Take 1 [facility] 40 mg 3-21 tablet by ity of tablet 00:00: mouth at [place] 00 bedtime. Medical Branch tamsulosin 2020-0 Yes [id number] .4mg Take 1 [facility] 0.4 mg 24 3-21 capsule by ity of hr capsule 00:00: mouth [place] 00 daily. Medical Branch gabapentin 2019-0 2020- No [id number] 100mg Take 1 [facility] 100 mg 3-21 06-25 capsule by ity of capsule 00:00: 00:00 mouth 3 [place] 00 :00 (three) Medical times Branch daily. aspirin 81 2020-0 2020- No [id number] 81mg Take 1 [facility] mg chewable 3-21 06-25 tablet by it y of tablet 00:00: 00:00 mouth [place] 00 :00 daily. Medical Branch furosemide 2019-0 2020- No [id number] 20mg Take 1 [facility] (LASIX) 20 3-21 06-08 tablet by ity of mg tablet 00:00: 00:00 mouth [place] 00 :00 daily. Medical Branch clopidogreL 2019-0 2020- No [id number] 75mg Take 1 [facility] 75 mg 3-21 05-16 tablet by ity of tablet 00:00: 00:00 mouth [place] 00 :00 daily. Medical Branch HYDROcodone 2020-0 2020- No [id number] 1{tbl} Take 1 [facility] -acetaminop 3-21 04-02 tablet by it y of hen 5-325 00:00: 00:00 mouth [place] mg tablet 00 :00 every 6 Medical (six) Branch hours as needed for Pain (scale 4-6) or Pain (scale 7-10). enalapril 2019- No [id number] 10mg Take 1 [facility] 10 mg 3-21 -02 tablet by ity of tablet 00:00: 00:00 mouth [place] 00 :00 daily. Medical Branch HYDROcodone 2019- No [id number] 1{tbl} Take 1 [facility] -acetaminop 3-21 04-02 tablet by it y of hen 5-325 00:00: 00:00 mouth [place] mg tablet 00 :00 every 6 Medical (six) Branch hours as needed for Pain (scale 4-6) or Pain (scale 7-10). enalapril 2019- No [id number] 10mg Take 1 [facility] 10 mg 3-12 07-02 tablet by ity of tablet 00:00: 00:00 mouth [place] 00 :00 daily. Medical Branch cephALEXin 2019- No [id number] 500mg Take 1 [facility] (KEFLEX) -11 06- 9101 capsule by ity of 500 mg 00:00: 04:59 mouth 2 [place] capsule 00 :00 (two) Medical times Branch daily for 2 days. cephALEXin 2019- No [id number] 250mg Take 1 [facility] 250 mg 3-21 -21 capsule by ity of capsule 00:00: 00:00 mouth 4 [place] 00 :00 (four) Medical times Branch daily for 6 doses. cephALEXin 2019- No [id number] 500mg Take 2 [facility] 250 mg 3-21 -21 capsules ity of capsule 00:00: 00:00 by mouth 3 [place] 00 :00 (three) Medical times Branch daily. HYDROcodone Yes 1{tbl} 1 tablet, Univers -acetaminop 3-20 Oral, ity of hen (NORCO 23:00: Q6HPRN, [place] 5) 5-325 mg 00 Starting Medi bharat tablet 1 Fri Branch tablet 06/11/19 at 1800, Until Discontinu ed, Routine, Pain (scale 4-6) morpHINE 2020-0 2020- No 2mg 2 mg, Slow Un martha injection 2 06-1021 IV Push, ity of mg 19:00: 11:59 Q4HPRN, [place] 00 :22 Starting Medical Fri Branch 06/11/19 at 1400, Until 06/12/19 at 0659, Routine, Pain (scale 7-10), pain not controlled by norco lactated 2020-0 2020- No 1000mL at 42 Unive rs ringers IV 06-10-20 mL/hr, ity of infusion 14:30: 16:48 1,000 mL, [place] 1,000 mL 00 :58 IV Medical Infusion, Branch CONTINUOUS , Starting 06/11/19 at 0930, Until 06/11/19 at 1148, Routine, PACU sennosides- 2019-0 Yes 1{tbl} 1 tablet, Univers docusate 06-09 Oral, ity of sodium 14:00: DAILY, [place] (SENOKOT S) 00 First dose Me dical 8.6-50 mg on [place] Branch per tablet 06/10/19 at 1 tablet 0900, Until Discontinu ed, Routine Polyethylen 2020-0 Yes 17g 17 g, Unive rs e Glycol 06-09 Oral, BID, ity o f 3350 13:00: First dose [place] (MIRALAX) 00 on [place] Medical powder 17 g 06/10/19 at Br anch 0800, Until Discontinu ed, Routine magnesium 2020-0 2020- No 800mg 800 mg, Uni vers oxide 06-09 Oral, ity of (MAG-OX 12:45: 14:41 ONCE, 1 [place] 400) tablet 00 :00 dose, [place] Med ical 800 mg 06/10/19 at Branch 0745, Routine D5W 0.45% 2019-0 2020- No 1000mL at 150 Uni vers NaCl 06-08 mL/hr, ity of (1/2NS) IV 09:00: 11:41 1,000 mL, [place] infusion 00 :55 IV Medical 1,000 mL Infusion, Branch CONTINUOUS , Starting 06/09/19 at 0400, Until [place] 06/10/19 at 0641, Routine D5W 0.45% 2020-0 2020- No 1000mL at 125 Uni vers NaCl 06-07-17 mL/hr, ity of (1/2NS) IV 17:15: 18:26 1,000 mL, [place] infusion 00 :10 IV Medical 1,000 mL Infusion, Branch CONTINUOUS , Starting [facility] 06/08/19 at 1215, Until [facility] 06/08/19 at 1326, Routine cephALEXin 2020-0 2020- No 250mg 250 mg, Un martha (KEFLEX) 06-07 Oral, QID, ity of capsule 250 17:00: 16:59 20 doses, [place] mg 00 :00 First dose Medical on [facility] 06/08/19 at 1200, Last dose on [place] 06/13/19 at 0800, ONESIMO
Re ason for Anti-Infec tive: Empiric Therapy for Suspected Infection< br>Empiric Therapy Site: Skin / Soft tissue
Duration of therapy: 7 days tamsulosin 2020-0 Yes .4mg 0.4 mg, Univ ers (FLOMAX) 17 Oral, ity of capsule 0.4 14:00: DAILY, [place] mg 00 First dose Medical on [facility] 06/08/19 at 0900, Until Discontinu ed, Routine cilostazoL 2020-0 Yes 100mg 100 mg, Uni vers (PLETAL) 3-16 Oral, BID ity of tablet 100 22:00: MEALS, [place] mg 00 First dose Medical on [facility] 06/07/19 at 1700, Until Discontinu ed, Routine bisacodyL 2020-0 Yes 10mg 10 mg, Univer s (DULCOLAX) 3-16 Rectal, ity of suppository 15:14: QDAILYPRN, [place] 10 mg 45 Starting [facility] 06/07/19 at 1014, Until Discontinu ed, Routine, Constipati on bisacodyL 2020-0 Yes 5mg 5 mg, Univers (DULCOLAX) 3-16 Oral, ity of tablet 5 mg 15:14: QDAILYPRN, [place] 43 Starting [facility] 06/07/19 at 1014, Until Discontinu ed, Routine, Constipati on furosemide 2020-0 Yes 20mg 20 mg, Unive rs (LASIX) 3-16 Oral, ity of tablet 20 14:00: DAILY, [place] mg 00 First dose Medical on [facility] 06/07/19 at 0900, Until Discontinu ed, Routine clopidogreL 2020-0 Yes 75mg 75 mg, Univ ers (PLAVIX) 3-16 Oral, ity of tablet 75 14:00: DAILY, [place] mg 00 First dose Medical on [facility] 06/07/19 at 0900, Until Discontinu ed, Routine aspirin 2020-0 Yes 81mg 81 mg, [facility] chewable 3-16 Oral, ity of tablet 81 14:00: DAILY, [place] mg 00 First dose Medical on [facility] 06/07/19 at 0900, Until Discontinu ed, Routine heparin 2020-0 Yes 5000U 5,000 [facility] (porcine) 3-16 Units, ity of injection 13:00: Subcutaneo [place] 5,000 Units 00 us, Q12H, Med ical First dose Branch on [facility] 06/07/19 at 0800, Until Discontinu ed, Routine metoprolol 2020-0 Yes 25mg 25 mg, Unive rs tartrate 3-16 Oral, ity of (LOPRESSOR) 13:00: Q12H, [place] tablet 25 00 First dose Medi bharat mg on [facility] 06/07/19 at 0800, Until Discontinu ed, Routine gabapentin 2020-0 Yes 100mg 100 mg, Uni vers (NEURONTIN) 3-16 Oral, TID, it y of capsule 100 13:00: First dose [place] mg 00 on [facility] 06/07/19 at Branch 0800, Until Discontinu ed, Routine cilostazoL 2020-0 2020- No 50mg 50 mg, Univ ers (PLETAL) 06-06-16 Oral, BID ity o f tablet 50 13:00: 20:01 MEALS, [place] mg 00 :19 First dose Medical on [facility] 06/07/19 at 0800, Until Discontinu ed, Routine insulin 2020-0 2020- No 5U 5 Units, Unive rs regular 06-06-16 IV Push, ity of human 07:45: 07:09 ONCE, 1 [place] (HUMULIN R) 00 :00 dose, Mon Med ical injection 5 06/07/19 at Br anch Units 0245, Routine furosemide 2020-0 2020- No 40mg 40 mg, Univ ers (LASIX) 06-06-16 Slow IV ity of injection 06:45: 06:24 Push, ONCE [place] 40 mg 00 :00 NOW, 1 [facility] dose, [facility] 06/07/19 at 0145, Routine dextrose 2020-0 2020- No 250mL 250 mL, IV U nivers 10% (D10W) 06-06-16 Infusion, ity of bolus 06:00: 06:24 ONCE NOW, [place] infusion 00 :00 [facility] Medical 250 mL 06/07/19 at Branch 0100, For 1 dose
De xtrose 10% 250 mL bag contains:& nbsp;10 gm = 100 mL 20 gm = 200 mL 25 gm = 250 mL (whole bag) The maximum rate at which dextrose can be infused without producing glycosuria is 0.5 g/kg/hour. &nbs p;BUD: If wrapper is open bag is good for 30 days at room temperatur e. &l t;br> Sliding 2020-0 Yes Subcutaneo Univ ers Scale 3-16 us, Q6H, ity of Insulin - 05:00: First dose [place] Aspart 00 on [facility] (NOVOLOG) + 06/07/19 at Br anch Fsbg 0000, Testing Until Discontinu ed, Routine NaCl 0.9% 2020-0 2020- No 500mL at 999 Univ ers (NS) bolus 06-06 03-16 mL/hr, 500 it y of infusion 04:00: 04:43 mL, IV [place] 500 mL 00 :00 Piggyback, Medical ONCE, 1 Branch dose, [place] 06/06/19 at 2300, STAT morpHINE 2020-0 2020- No 4mg 4 mg, Slow Un martha injection 4 06-0616 IV Push, ity of mg 03:00: 03:16 ONCE NOW, [place] 00 :00 1 dose, Medical Pending Sale To [facility] 06/06/19 at 2200, Routine dextrose 2020-0 Yes 250mL 250 mL, IV Un martha 10% (D10W) 16 Infusion, ity of bolus 02:03: PRN - SEE [place] infusion 07 INSTRUCTIO Medic al 250 mL NS, If Branch glucose is < or = 70 mg/dL and patient is able to swallow: give 8 oz. nonfat milk OR 4 oz. orange juice OR non-diet soda. IF PATIENT HAS SEVERE KIDNEY DISEASE give 4 oz of cranberry juice OR 4 oz non-diet lemon [place] soda. Recheck blood glucose in 15 minutes; repeat above until glucose > 100 X 2., Starting 06/06/19 at 2103
De xtrose 10% 250 mL bag contains:& nbsp;10 gm = 100 mL 20 gm = 200 mL 25 gm = 250 mL (whole bag) The maximum rate at which dextrose can be infused without producing glycosuria is 0.5 g/kg/hour. &nbs p;BUD: If wrapper is open bag is good for 30 days at room temperatur e. <b r> glucagon 2020-0 Yes 1mg 1 mg, Univers (GLUCAGEN 3-16 Intramuscu ity of DIAGNOSTIC 02:03: lar, PRN, [place] KIT) 04 Starting Medical injection 1 [place] [facility] mg 06/06/19 at 2103, Until Discontinu ed, ONESIMO, Blood Glucose < or = 70 mg/dL and patient is unable to swallow or has mental changes. pravastatin 2019-0 Yes 40mg 40 mg, Univ ers (PRAVACHOL) 3-16 Oral, QHS, it y of tablet 40 02:00: First dose [place] mg 00 on [place] Medical 06/06/19 at [place] 2100, Until Discontinu ed, Routine HYDROcodone 2019-0 2020- No 1{tbl} 1 tablet, Univers -acetaminop -16 03-20 Oral, Q6H, i ty of hen (NORCO 02:00: 17:25 First dose [place] 5) 5-325 mg 00 :32 on [facility] tablet 1 06/06/19 at [facility] h tablet 2100, Until Discontinu ed, Routine morpHINE 2019-0 2020- No 2mg 2 mg, Slow Un martha injection 2 06-06 03-20 IV Push, ity of mg 01:50: 17:25 Q4HPRN, [place] 43 :32 Starting Medical [place] Branch 06/06/19 at 2050, Until 06/11/19 at 1225, Routine, Pain (scale 4-6), Pain (scale 7-10) acetaminoph 2020-0 Yes 650mg 650 mg, Un martha en 3-16 Oral, ity of (TYLENOL) 01:49: Q6HPRN, [place] tablet 650 48 Starting Medic al mg Pending Sale To [facility] 06/06/19 at 2049, Until Discontinu ed, Routine, Pain (scale 1-3) sodium 2019- No 15g 15 g, Univers polystyrene 06-0515 Oral, ity of sulfonate 22:00: 21:11 ONCE, 1 [place] (KAYEXALATE 00 :00 dose, [place] Med ical ) 15 06/06/19 at Branch gram/60 mL 1700, STAT suspension 15 g NaCl 0.9% 2019- No 500mL at 999 [facility] ers (NS) bolus 06-05 mL/hr, 500 it y of infusion 22:00: 21:52 mL, IV [place] 500 mL 00 :00 Infusion, Medical ONCE, 1 Branch dose, [place] 06/06/19 at 1700, STAT traMADol 2019- No 50mg 50 mg, Univer s (ULTRAM) 06-05 Oral, ity of tablet 50 21:17: 02:02 Q8HPRN, [place] mg 40 :42 Starting Medical Pending Sale To [facility] 06/06/19 at 1617, Until [place] 06/06/19 at 2102, Routine, pain cilostazol 2019- No [id number] 50mg Take 1 Tab [facility] (PLETAL) 50 08-06 by mouth 2 i ty of mg tablet 00:00: 00:00 (two) [place] 00 :00 times Medical daily with Branch meals. gabapentin 2019- No 100mg Take 1 Cap [facility] (NEURONTIN) 08-01 by mouth 3 i ty of 100 mg 00:00: 00:00 (three) [place] capsule 00 :00 times Medical daily. Branch ibuprofen 2020- No [id number] 600mg Take 1 Tab [facility] (MOTRIN) 07-05 by mouth ity of 600 mg 00:00: 00:00 every 6 [place] tablet 00 :00 (six) Medical hours as Branch needed for Pain. metoprolol 2020- No 25mg Take 1 Tab [facility] tartrate 06-28 by mouth ity of (LOPRESSOR) 00:00: 00:00 every 12 [place] 25 mg 00 :00 (twelve) Medical tablet hours. Branch aspirin 81 2020- No 81mg Take 1 Tab [facility] mg chewable 05-29 by mouth ity of tablet 00:00: 00:00 daily. [place] 00 Medical Branch clopidogrel 2019- No 75mg Take 1 Tab [facility] (PLAVIX) 75 05-29 by mouth ity of mg tablet 00:00: 00:00 daily. [place] 00 Medical Branch pravastatin 2019- No 40mg Take 1 Tab [facility] (PRAVACHOL) 05-29 by mouth ity of 40 mg 00:00: 00:00 at [place] tablet 00 :00 bedtime. Medical Branch glipiZIDE 2019- No 5mg Take 1 Tab U nivers (GLUCOTROL) 05-29 by mouth ity of 5 mg tablet 00:00: 00:00 every [place] 00 :00 morning Medical and Branch evening. Vital Signs Vital Name Observation Time Observation Value Comments Source Systolic blood 2020-03-02 114 mm[Hg] University of pressure 16:54:00 [facility] Diastolic blood 2020-03-02 59 mm[Hg] University o f pressure 16:54:00 [facility] Heart rate 2020-03-02 62 /min University 16:54:00 [facility] Body temperature 2020-03-02 36.72 [place] University of 16:54:00 [facility] Respiratory rate 2020-03-02 18 /min University of 16:54:00 [facility] Body height 2020-03-02 175.3 cm University of 16:54:00 [facility] Body weight 2020-03-02 71.215 kg University of 16:54:00 [facility] BMI 2020-03-02 23.18 kg/m2 University of 16:54:00 [facility] Systolic blood 2020-02-25 157 mm[Hg] University of pressure 15:24:00 [facility] Diastolic blood 2020-02-25 67 mm[Hg] University o f pressure 15:24:00 [facility] Heart rate 2020-02-25 69 /min University of 15:23:00 [facility] Body temperature 2020-02-25 36.56 [place] University of 15:23:00 [facility] Respiratory rate 2020-02-25 14 /min University of 15:23:00 [facility] Body height 2020-02-25 172.7 cm University of 15:23:00 [facility] Body weight 2020-02-25 71.215 kg University of 15:23:00 [facility] BMI 2020-02-25 23.87 kg/m2 University of 15:23:00 [facility] Systolic blood 2020-02-10 133 mm[Hg] University of pressure 16:14:00 [facility] Diastolic blood 2020-02-10 55 mm[Hg] University o f pressure 16:14:00 [facility] Heart rate 2020-02-10 66 /min University of 16:14:00 [facility] Body temperature 2020-02-10 36.61 [place] University of 16:08:00 [facility] Respiratory rate 2020-02-10 15 /min University of 16:08:00 [facility] Body height 2020-02-10 180.3 cm University of 16:08:00 [facility] Body weight 2020-02-10 69 kg University of 16:08:00 [facility] BMI 2020-02-10 21.22 kg/m2 University of 16:08:00 [facility] Systolic blood 2020-02-01 131 mm[Hg] University of pressure 22:29:00 [facility] Diastolic blood 2020-02-01 59 mm[Hg] University o f pressure 22:29:00 [facility] Heart rate 2020-02-01 58 /min University of 22:29:00 [facility] Body temperature 2020-02-01 36.78 [place] University of 22:29:00 [facility] Respiratory rate 2020-02-01 18 /min University of 22:29:00 [facility] Oxygen saturation 2020-02-01 97 /min [facility] in Arterial blood 22:29:00 [facility] by Pulse oximetry [place] Body weight 2020-01-30 70.489 kg chaitanya, pt University of 11:31:00 unable to stand [place] Medica l on scale at [place] this time. BMI 2020-01-30 21.67 kg/m2 University of 11::00 [facility] Systolic blood 2020-01-17 126 mm[Hg] University of pressure 19:03:00 [facility] Diastolic blood 2020-01-17 52 mm[Hg] University o f pressure 19:03:00 [facility] Heart rate 2020-01-17 53 /min University of 19:03:00 [facility] Body temperature 2020-01-17 36.44 [place] University of 19:03:00 [facility] Respiratory rate 2020-01-17 18 /min University of 19:03:00 [facility] Body weight 2020-01-17 69.854 kg University of 19:03:00 [facility] BMI 2020-01-17 21.48 kg/m2 University of 19:03:00 [facility] Systolic blood 2020-01-13 149 mm[Hg] University of pressure 15:51:00 [facility] Diastolic blood 2020-01-13 60 mm[Hg] University o f pressure 15:51:00 [facility] Heart rate 2020-01-13 54 /min University of 15:51:00 [facility] Body temperature 2020-01-13 36.56 [place] University of 15:51:00 [facility] Body weight 2020-01-13 69.899 kg University of 15:51:00 [facility] BMI 2020-01-13 21.49 kg/m2 University of 15:51:00 [facility] Systolic blood 2019-12-21 143 mm[Hg] University of pressure 21:41:00 [facility] Diastolic blood 2019-12-21 56 mm[Hg] University o f pressure 21:41:00 [facility] Heart rate 2019-12-21 56 /min University of 21:41:00 [facility] Body temperature 2019-12-21 36.28 [place] University of 21:41:00 [facility] Respiratory rate 2019-12-21 18 /min University of :41:00 [facility] Oxygen saturation 2019-12-21 97 /min University in Arterial blood 21:41:00 [facility] by Pulse oximetry [place] Body weight 2019-12-18 73 kg University of 01:00:00 [facility] BMI 2019-12-18 22.45 kg/m2 University of 01:00:00 [facility] Body height 2019-12-04 180.3 cm University of 04:30:00 [facility] Systolic blood 2019-10-25 135 mm[Hg] University of pressure 21:15:00 [facility] Diastolic blood 2019-10-25 56 mm[Hg] University o f pressure 21:15:00 [facility] Heart rate 2019-10-25 58 /min University of 21:15:00 [facility] Body temperature 2019-10-25 36.56 Lynn University of 21:15:00 [facility] Body height 2019-10-25 154.9 cm University of 21:15:00 [facility] Body weight 2019-10-25 68.947 kg University of 21:15:00 [facility] BMI 2019-10-25 28.72 kg/m2 University of 21:15:00 [facility] Systolic blood 2019-10-11 119 mm[Hg] University of pressure 20:43:00 [facility] Diastolic blood 2019-10-11 55 mm[Hg] University o f pressure 20:43:00 [facility] Heart rate 2019-10-11 56 /min University of 20:43:00 [facility] Body temperature 2019-10-11 36.67 Lynn University of 20:43:00 [facility] Respiratory rate 2019-10-11 12 /min University of 20:43:00 [facility] Body height 2019-10-11 154.9 cm University of 20:43:00 [facility] Body weight 2019-10-11 68.493 kg University of 20:43:00 [facility] BMI 2019-10-11 28.53 kg/m2 University of 20:43:00 [facility] Systolic blood 2019-09-16 119 mm[Hg] University of pressure 22:14:00 [facility] Diastolic blood 2019-09-16 42 mm[Hg] University o f pressure 22:14:00 [facility] Heart rate 2019-09-16 55 /min University of 22:14:00 [facility] Body temperature 2019-09-16 36.67 Lynn University of 22:14:00 [facility] Respiratory rate 2019-09-16 18 /min University of 22:14:00 [facility] Oxygen saturation 2019-09-16 98 /min [facility] in Arterial blood 22:14:00 [facility] by Pulse oximetry [place] Body weight 2019-09-13 68.493 kg University of 08:42:00 [facility] BMI 2019-09-13 28.53 kg/m2 University of 08:42:00 [facility] Body height 2019-09-02 154.9 cm University of 15:16:00 [facility] Systolic blood 2019-08-16 105 mm[Hg] University of pressure 20:00:00 [facility] Diastolic blood 2019-08-16 47 mm[Hg] University o f pressure 20:00:00 [facility] Heart rate 2019-08-16 53 /min University of 20:00:00 [facility] Body temperature 2019-08-16 36.83 Lynn University of 20:00:00 [facility] Respiratory rate 2019-08-16 18 /min University of 20:00:00 [facility] Oxygen saturation 2019-08-16 100 /min University of in Arterial blood 20:00:00 [facility] by Pulse oximetry [facility] Body weight 2019-08-13 70.308 kg University of 18:26:00 [facility] BMI 2019-08-13 23.57 kg/m2 University of 18:26:00 [facility] Systolic blood 2019-08-07 127 mm[Hg] University of pressure 20:54:00 [facility] Diastolic blood 2019-08-07 56 mm[Hg] University o f pressure 20:54:00 [facility] Heart rate 2019-08-07 56 /min University of 20:54:00 [facility] Body temperature 2019-08-07 36.78 Lynn University of 20:54:00 [facility] Respiratory rate 2019-08-07 20 /min University of 20:54:00 [facility] Oxygen saturation 2019-08-07 97 /min University of in Arterial blood 20:54:00 [facility] by Pulse oximetry [place] Body height 2019-08-06 172.7 cm University of 21:45:00 [facility] Body weight 2019-08-06 70.489 kg University of 21:45:00 [facility] BMI 2019-08-06 23.63 kg/m2 University of 21:45:00 [facility] Systolic blood 2019-06-24 98 mm[Hg] University of pressure 19:22:00 [facility] Diastolic blood 2019-06-24 33 mm[Hg] University o f pressure 19:22:00 [facility] Heart rate 2019-06-24 66 /min University of 19:22:00 [facility] Body temperature 2019-06-24 36.5 Lynn University of 19:22:00 [facility] Respiratory rate 2019-06-24 15 /min University of 19:22:00 [facility] Body height 2019-06-24 175.3 cm University of 19:22:00 [facility] Body weight 2019-06-24 69.854 kg University of 19:22:00 [facility] BMI 2019-06-24 22.74 kg/m2 University of 19:22:00 [facility] Systolic blood 2019-06-18 100 mm[Hg] University of pressure 14:59:00 [facility] Diastolic blood 2019-06-18 40 mm[Hg] University o f pressure 14:59:00 [facility] Heart rate 2019-06-18 76 /min University of 14:27:00 [facility] Body temperature 2019-06-18 36.94 Lynn University of 14:27:00 [facility] Respiratory rate 2019-06-18 15 /min University of 14:27:00 [facility] Body height 2019-06-18 175.3 cm University of 14:27:00 [facility] Body weight 2019-06-18 69.854 kg University of 14:27:00 [facility] BMI 2019-06-18 22.74 kg/m2 University of 14:27:00 [facility] Systolic blood 2019-06-12 140 mm[Hg] University of pressure 20:28:00 [facility] Diastolic blood 2019-06-12 58 mm[Hg] University o f pressure 20:28:00 [facility] Heart rate 2019-06-12 82 /min University 20:28:00 [facility] Body temperature 2019-06-12 36.5 Lynn University 20:28:00 [facility] Respiratory rate 2019-06-12 18 /min University of 20:28:00 [facility] Oxygen saturation 2019-06-12 99 /min [facility] in Arterial blood 20:28:00 [facility] by Pulse oximetry [place] Body weight 2019-06-08 70 kg University of 00:00:00 [facility] BMI 2019-06-08 22.79 kg/m2 University of 00:00:00 [facility] Procedures Procedure Date / Time Performing Source Performed Clinician AUTHORIZATION FOR RELEASE OF PHI 2020-06-12 Doctor [facility] 05:01:00 Unassigned, No [facility] POCT GLUCOSE (AUTOMATED) 2020-02-01 Ema Sam [facility] sity of 22:26:00 [facility] POCT GLUCOSE (AUTOMATED) 2020-02-01 [facility] 17:22:00 [facility] POCT GLUCOSE (AUTOMATED) 2020-02-01 [facility] of 14:47:00 [facility] CBC WITHOUT DIFF 2020-02-01 Vickie Hughes [place] of 11:33:00 [facility] POCT GLUCOSE (AUTOMATED) 2020-02-01 Ema Sam Univanthony sity of 04:02:00 [facility] POCT GLUCOSE (AUTOMATED) 2020-01-31 Ema Sam [facility]anthony sity of 23:09:00 [facility] POCT GLUCOSE (AUTOMATED) 2020-01-31 Ema Sam Univanthony sity of 22:36:00 [facility] COVID-19 (ID NOW RAPID TESTING) 2020-01-31 Saul [facility] of 18:31:00 [facility] PREPARE PACKED RBC 2020-01-31 [facility] 18:09:08 [facility] POCT GLUCOSE (AUTOMATED) 2020-01-31 Ema Sam Univer sity of 17:12:00 [facility] POCT GLUCOSE (AUTOMATED) 2020-01-31 Ema Sam sity of 14:37:00 [facility] CBC WITHOUT DIFF 2020-01-31 [facility] of 11:19:00 [facility] POCT GLUCOSE (AUTOMATED) 2020-01-31 Ema Sam Univer sity of 03:41:00 [facility] POCT GLUCOSE (AUTOMATED) 2020-01-30 Ema Sam Univer sity of 22:27:00 [facility] POCT GLUCOSE (AUTOMATED) 2020-01-30 Ema Sam Univer sity of 19:26:00 [facility] POCT GLUCOSE (AUTOMATED) 2020-01-30 Ema Sam Univer sity of 15:32:00 [facility] CBC WITHOUT DIFF 2020-01-30 Dolly [facility] of 11:41:00 [facility] POCT GLUCOSE (AUTOMATED) 2020-01-30 Ema Sam Univer sity of 03:35:00 [facility] POCT GLUCOSE (AUTOMATED) 2020-01-30 Ema Sam Univer sity of 00:27:00 [facility] POCT GLUCOSE (AUTOMATED) 2020-01-29 Ema Sam Univer sity of 19:57:00 [facility] CBC WITHOUT DIFF 2020-01-29 [facility] of 17:50:00 [facility] POCT GLUCOSE (AUTOMATED) 2020-01-29 Ema Sam Univer sity of 15:50:00 [facility] PROTHROMBIN TIME / INR 2020-01-29 [facility] of 12:00:00 [facility] POCT GLUCOSE (AUTOMATED) 2020-01-29 Ema Sam Univer sity of 03:05:00 [facility] BELOW THE KNEE AMPUTATION 2020-01-28 Ema Sam Unive rsity of 21:40:00 [facility] ACTIVATED PARTIAL THRMPLAS MISTY 2020-01-28 [facility] 18:47:00 [facility] POCT GLUCOSE (AUTOMATED) 2020-01-28 Ema Sam Univer sity of 18:33:00 [facility] HB ABO GROUPING 2020-01-28 [facility] [place] [facility] 17:00:00 [facility] POCT GLUCOSE (AUTOMATED) 2020-01-28 Ema Sam Univer sity of 14:28:00 [facility] PROTHROMBIN TIME / INR 2020-01-28 [facility] 10:15[facility]00 [facility] ACTIVATED PARTIAL THRMPLAS MISTY 2020-01-28 [facility] of 10:15:00 [facility] POCT GLUCOSE (AUTOMATED) 2020-01-28 Ema Sam Univer sity of 03:03:00 [facility] ACTIVATED PARTIAL THRMPLAS MISTY 2020-01-28 [facility] 00:26:00 [facility] POCT GLUCOSE (AUTOMATED) 2020-01-27 Ema Sam Univer sity of 23:41:00 [facility] POCT GLUCOSE (AUTOMATED) 2020-01-27 Ema Sam Univer sity of 20:14:00 [facility] ACTIVATED PARTIAL THRMPLAS MISTY 2020-01-27 [facility] 14:33:00 [facility] POCT GLUCOSE (AUTOMATED) 2020-01-27 Ema Sam Univer sity of 14:14:00 [facility] MAGNESIUM 2020-01-27 [facility] [place] of 11:06:00 [facility] BASIC METABOLIC PANEL (NA, K, CL, 2020-01-27 [facility] of CO2, GLUCOSE, BUN, CREATININE, CA) 11:06:00 [facility] CBC WITH DIFF 2020-01-27 [facility] [place] of 11:05:00 [facility] ACTIVATED PARTIAL THRMPLAS MISTY 2020-01-27 [facility], Miles Huerta niversity of 06:24:00 [facility] POCT GLUCOSE (AUTOMATED) 2020-01-27 Ema Sam [facility] sity of 06:19:00 [facility] COVID-19 (ID NOW RAPID TESTING) 2020-01-27 Jr Ferguson of 01:07:00 [facility] LAB ONLY COVID INTERPRETATION 2020-01-27 Jr Ferguson niversity of 01:07:00 [facility] POCT GLUCOSE (AUTOMATED) 2020-01-27 Jr Ferguson [facility] sity of 00:28:00 [facility] EDGARDO MULTI LEVEL BY VASCULAR LAB 2020-01-26 [facility] of 20:39:40 [facility] UNILATERAL DUPLEX SCAN OF ARTERY 2020-01-26 [facility] of BY VASCULAR LAB 20:17:10 [facility] BASIC METABOLIC PANEL (NA, K, CL, 2020-01-26 Jr Ferguson of CO2, GLUCOSE, BUN, CREATININE, CA) 18:23:00 [facility] CBC WITH DIFF 2020-01-26 Jr Ferguson of 18:23:00 [facility] PROTHROMBIN TIME / INR 2020-01-26 Jr Ferguson [facility] of 18:23:00 [facility] ACTIVATED PARTIAL THRMPLAS MISTY 2020-01-26 Jr Ferguson of 18:23:00 [facility] LACTIC ACID WHOLE BLOOD 2020-01-26 Jr Ferguson [facility] ity of 18:23:00 [facility] EXTRA TUBE LT. BLUE 2020-01-26 Jr Ferguson [place] of 18:23:00 [facility] FLU VACC(),65+ 2020-01-13 John Rush, Universi ty of YRS,IM,HIGH DOSE QUAD 15:52:51 [facility] NO SHOW OR MISSED APPOINTMENT 2020-01-13 Doctor Un iversity of POLICY ACKNOWLEDGEMENT 15:19:53 Unassigned, No [facility] Name Branch POCT GLUCOSE (AUTOMATED) 2019-12-21 [facility] [place] Univers ity of 21:46:00 [facility] POCT GLUCOSE (AUTOMATED) 2019-12-21 [facility] [place] Univers ity of 16:53:00 [facility] POCT GLUCOSE (AUTOMATED) 2019-12-21 [facility] [place] Univers ity of 13:13:00 [facility] BASIC METABOLIC PANEL (NA, K, CL, 2019-12-21 [facility] CO2, GLUCOSE, BUN, CREATININE, CA) 11:38:[address] [facility] CBC WITH DIFF 2019-12-21 [facility] of 11:37:00 [facility] POCT GLUCOSE (AUTOMATED) 2019-12-21 [facility] [place] Univers ity of 03:07:00 [facility] POCT GLUCOSE (AUTOMATED) 2019-12-20 [facility] [place] Univers ity of 22:26:00 [facility] FL TIME OR (NON-REPORTABLE) 2019-12-20 [facility] ersity of 19:57:01 [facility] POCT GLUCOSE (AUTOMATED) 2019-12-20 [facility] [place] Univers ity of 17:02:00 [facility] BASIC METABOLIC PANEL (NA, K, CL, 2019-12-20 [facility] CO2, GLUCOSE, BUN, CREATININE, CA) 10:39:[address] [facility] CBC WITH DIFF 2019-12-20 [facility] of 10:39:00 [facility] POCT GLUCOSE (AUTOMATED) 2019-12-20 [facility] [place] Univers ity of 01:28:00 [facility] POCT GLUCOSE (AUTOMATED) 2019-12-19 [facility] [place] Univers ity of 22:32:00 [facility] POCT GLUCOSE (AUTOMATED) 2019-12-19 [facility] [place] Univers ity of 17:35:00 [facility] POCT GLUCOSE (AUTOMATED) 2019-12-19 [facility] Univers ity of 13:59:00 [facility] BASIC METABOLIC PANEL (NA, K, CL, 2019-12-19 [facility] CO2, GLUCOSE, BUN, CREATININE, CA) 10:27:[address] [facility] CBC WITH DIFF 2019-12-19 [facility] of 10:27:00 [facility] TRANSFUSE PACKED RBC 2019-12-19 [facility] 03:57:[address] [facility] POCT GLUCOSE (AUTOMATED) 2019-12-19 [facility] [place] Univers ity of 01:58:00 [facility] PREPARE PACKED RBC 2019-12-19 [facility] of 01:26:[address] [facility] POCT GLUCOSE (AUTOMATED) 2019-12-18 [facility] [place] Univers ity of 23:09:00 [facility] HB INDIRECT ANTIGLOBULIN TEST 2019-12-18 [facility] iversity of 17:20:[address] [facility] ABORH INVESTIGATION 2019-12-18 [facility] f 17:20:[address] [facility] POCT GLUCOSE (AUTOMATED) 2019-12-18 [facility] [place] Univers ity of 17:11:00 [facility] POCT GLUCOSE (AUTOMATED) 2019-12-18 [facility] [place] Univers ity of 14:28:00 [facility] BASIC METABOLIC PANEL (NA, K, CL, 2019-12-18 [facility] CO2, GLUCOSE, BUN, CREATININE, CA) 07:34:[address] [facility] CBC WITH DIFF 2019-12-18 [facility] of 07:34:00 [facility] POCT GLUCOSE (AUTOMATED) 2019-12-18 [facility] [place] Univers ity of 01:41:00 [facility] POCT GLUCOSE (AUTOMATED) 2019-12-17 [facility] [place] Univers ity of 20:47:00 [facility] POCT GLUCOSE (AUTOMATED) 2019-12-17 [facility] [place] Univers ity of 18:09:00 [facility] POCT GLUCOSE (AUTOMATED) 2019-12-17 [facility] [place] Univers ity of 12:58:00 [facility] PHOSPHORUS 2019-12-17 Lindsay [facility] of 10:16:00 [facility] MAGNESIUM 2019-12-17 [facility] of 10:16:00 [facility] BASIC METABOLIC PANEL (NA, K, CL, 2019-12-17 [facility] of CO2, GLUCOSE, BUN, CREATININE, CA) 10:16:00 [facility] CBC WITH DIFF 2019-12-17 [facility] 10:16:00 [facility] POCT GLUCOSE (AUTOMATED) 2019-12-17 [facility] [place] Univers ity of 01:35:00 [facility] POCT GLUCOSE (AUTOMATED) 2019-12-16 [facility] [place] Univers ity of 21:06:00 [facility] POCT GLUCOSE (AUTOMATED) 2019-12-16 [facility] [place] Univers ity of 15:59:00 [facility] CBC WITHOUT DIFF 2019-12-16 [facility] 13:32:00 [facility] EKG-12 LEAD 2019-12-16 [facility] of 12:58:44 Unassigned, No [facility] POCT GLUCOSE (AUTOMATED) 2019-12-16 [facility] [place] Univers ity of 12:46:00 [facility] PHOSPHORUS 2019-12-16 [facility] of 11:45:00 [facility] ALBUMIN 2019-12-16 [facility] 11:45:00 Bryanna [facility] MAGNESIUM 2019-12-16 [facility] of 11:45:00 [facility] BASIC METABOLIC PANEL (NA, K, CL, 2019-12-16 [facility] of CO2, GLUCOSE, BUN, CREATININE, CA) 11:45:00 [facility] CBC WITH DIFF 2019-12-16 [facility] of 11:45:00 [facility] CBC WITHOUT DIFF 2019-12-16 Ramin Cheatham [place] of 03:36:00 [facility] POCT GLUCOSE (AUTOMATED) 2019-12-16 [facility] [place] Univers ity of 03:11:00 [facility] FEMORAL-DISTAL BYPASS GRAFT 2019-12-15 Ema Sam [facility] versity of 16:02:00 [facility] ARTERIOGRAM 2019-12-15 Ema Sam [place] of 16:02:00 [facility] POCT GLUCOSE (AUTOMATED) 2019-12-15 [facility] [place] Univers ity of 13:15:00 [facility] BASIC METABOLIC PANEL (NA, K, CL, 2019-12-15 [facility] CO2, GLUCOSE, BUN, CREATININE, CA) 12:59:00 [facility] PROTHROMBIN TIME / INR 2019-12-15 [place] [facility] 12:59:00 [facility] CBC WITH DIFF 2019-12-15 [facility] of 12:58:00 [facility] POCT GLUCOSE (AUTOMATED) 2019-12-15 [facility] [place] Univers ity of 01:08:00 [facility] POCT GLUCOSE (AUTOMATED) 2019-12-14 [facility] [place] Univers ity of 22:05:00 [facility] POCT GLUCOSE (AUTOMATED) 2019-12-14 [facility] [place] Univers ity of 18:34:00 [facility] POCT GLUCOSE (AUTOMATED) 2019-12-14 [facility] [place] Univers ity of 17:40:00 [facility] HB ABO GROUPING 2019-12-14 [facility] of 15:40:00 [facility] COVID-19 (ID NOW RAPID TESTING) 2019-12-14 [facility] of 15:36:00 [facility] BASIC METABOLIC PANEL (NA, K, CL, 2019-12-14 [place] [address], GLUCOSE, BUN, CREATININE, CA) 11:59:00 [facility] CBC WITH DIFF 2019-12-14 [facility] of 11:59:00 [facility] POCT GLUCOSE (AUTOMATED) 2019-12-14 [facility] [place] Univers ity of 01:42:00 [facility] POCT GLUCOSE (AUTOMATED) 2019-12-13 [facility] [place] Univers ity of 22:20:00 [facility] POCT GLUCOSE (AUTOMATED) 2019-12-13 [facility] [place] Univers ity of 17:05:00 [facility] POCT GLUCOSE (AUTOMATED) 2019-12-13 [facility] [place] Univers ity of 13:13:00 [facility] POCT GLUCOSE (AUTOMATED) 2019-12-13 [facility] [place] Univers ity of 01:25:00 [facility] POCT GLUCOSE (AUTOMATED) 2019-12-12 [facility] [place] Univers ity of 22:11:00 [facility] POCT GLUCOSE (AUTOMATED) 2019-12-12 [employer], [place] [facility] ity of 17:12:00 [facility] POCT GLUCOSE (AUTOMATED) 2019-12-12 Power, Mireille Univers ity of 13:33:00 [facility] BASIC METABOLIC PANEL (NA, K, CL, 2019-12-12 Dane [facility] University of CO2, GLUCOSE, BUN, CREATININE, CA) 10:16:00 [facility] CBC WITH DIFF 2019-12-12 [facility] of 10:16:00 [facility] POCT GLUCOSE (AUTOMATED) 2019-12-12 [facility], [place] Univers ity of 01:45:00 [facility] FL TIME OR (NON-REPORTABLE) 2019-12-11 [facility] ersity of 23:29:00 [facility] FUNGUS (ROUTINE) CULTURE 2019-12-11 Cecy [facility] sity of 22:37:21 [facility] TISSUE CULTURE(AEROBIC/ANAEROBIC) 2019-12-11 [facility] of 22:37:21 [facility] ARTERIOGRAM 2019-12-11 [facility] of 20:03:00 [facility] POCT GLUCOSE (AUTOMATED) 2019-12-11 [facility], [place]ireille Univers ity of 17:29:00 [facility] POCT GLUCOSE (AUTOMATED) 2019-12-11 [facility], [place] Univers ity of 14:15:00 [facility] CBC WITH DIFF 2019-12-11 [facility] of 10:10:00 [facility] BASIC METABOLIC PANEL (NA, K, CL, 2019-12-11 [facility] of CO2, GLUCOSE, BUN, CREATININE, CA) 08:54:00 [facility] POCT GLUCOSE (AUTOMATED) 2019-12-10 [facility], [place] Univers ity of 23:05:00 [facility] HB ABO GROUPING 2019-12-10 [facility] of 13:38:00 [facility] BASIC METABOLIC PANEL (NA, K, CL, 2019-12-10 [facility] of CO2, GLUCOSE, BUN, CREATININE, CA) 09:52:00 [facility] CBC WITH DIFF 2019-12-10 [facility] of 09:52:00 [facility] POCT GLUCOSE (AUTOMATED) 2019-12-10 [facility], [place] Univers ity of 03:01:00 [facility] POCT GLUCOSE (AUTOMATED) 2019-12-09 [facility], [place] Univers ity of 22:28:00 [facility] COVID-19 (ID NOW RAPID TESTING) 2019-12-09 [facility] 22:17:00 [facility] POCT GLUCOSE (AUTOMATED) 2019-12-09 [facility], [place] Univers ity of 17:18:00 [facility] BILATERAL VEIN MAPPING BY VASCULAR 2019-12-09 Juma, [facility] of LAB 14:57:48 [facility] POCT GLUCOSE (AUTOMATED) 2019-12-09 [facility], [place] Univers ity of 13:46:00 [facility] BASIC METABOLIC PANEL (NA, K, CL, 2019-12-09 [facility] of CO2, GLUCOSE, BUN, CREATININE, CA) 13:05:00 [facility] CBC WITH DIFF 2019-12-09 [facility] of 13:05:00 [facility] POCT GLUCOSE (AUTOMATED) 2019-12-09 [facility], [place] Univers ity of 03:35:00 [facility] POCT GLUCOSE (AUTOMATED) 2019-12-08 [facility], [place] Univers ity of 23:57:00 [facility] POCT GLUCOSE (AUTOMATED) 2019-12-08 [facility], [place] Univers ity of 17:10:00 [facility] POCT GLUCOSE (AUTOMATED) 2019-12-08 [facility], [place] Univers ity of 13:41:00 [facility] CBC WITH DIFF 2019-12-08 [facility] of 10:52:00 [facility] BASIC METABOLIC PANEL (NA, K, CL, 2019-12-08 [facility] of CO2, GLUCOSE, BUN, CREATININE, CA) 10:51:00 [facility] POCT GLUCOSE (AUTOMATED) 2019-12-08 [facility], [place] Univers ity of 03:41:00 [facility] POCT GLUCOSE (AUTOMATED) 2019-12-07 [facility], [place] Univers ity of 22:31:00 [facility] POCT GLUCOSE (AUTOMATED) 2019-12-07 [facility], [place] Univers ity of 17:02:00 [facility] POCT GLUCOSE (AUTOMATED) 2019-12-07 [facility], [place] Univers ity of 13:44:00 [facility] BASIC METABOLIC PANEL (NA, K, CL, 2019-12-07 VelaKatie pires [facility] of CO2, GLUCOSE, BUN, CREATININE, CA) 06:12:00 [facility] VANCOMYCIN TROUGH 2019-12-07 [facility] [place] of 06:12:00 [facility] CBC WITH DIFF 2019-12-07 [facility] of 06:12:00 [facility] POCT GLUCOSE (AUTOMATED) 2019-12-07 [facility], [place] Univers ity of 02:28:00 [facility] POCT GLUCOSE (AUTOMATED) 2019-12-07 [facility], [place] Univers ity of 01:36:00 [facility] FERRITIN SERUM 2019-12-06 [facility] of 20:44:00 [facility] IRON PANEL 2019-12-06 [facility] of 20:44:00 [facility] CBC WITHOUT DIFF 2019-12-06 [facility] of 20:44:00 [facility] POCT GLUCOSE (AUTOMATED) 2019-12-06 [facility], [place] Univers ity of 18:25:00 [facility] MR FOOT RIGHT WO CONTRAST 2019-12-06 [facility] of 17:00:00 [facility] POCT GLUCOSE (AUTOMATED) 2019-12-06 [facility], [place] Univers ity of 13:48:00 [facility] BASIC METABOLIC PANEL (NA, K, CL, 2019-12-06 VelaKatie [facility] of CO2, GLUCOSE, BUN, CREATININE, CA) 10:42:00 [facility] CBC WITH DIFF 2019-12-06 [facility] of 10:42:00 [facility] POCT GLUCOSE (AUTOMATED) 2019-12-06 [facility], [place] Univers ity of 01:52:00 [facility] POCT GLUCOSE (AUTOMATED) 2019-12-05 [facility], [place] Univers ity of 22:01:00 [facility] EDGARDO MULTI LEVEL BY VASCULAR LAB 2019-12-05 Bill Nogueira [place] of 20:47:06 [facility] UNILATERAL DUPLEX SCAN OF ARTERY 2019-12-05 Ania Nogueira do [place] of BY VASCULAR LAB 20:27:58 [facility] POCT GLUCOSE (AUTOMATED) 2019-12-05 Power, [place]ire[place] Univers ity of 18:44:00 [facility] VANCOMYCIN TROUGH 2019-12-05 Prachi Molina [place] o f 17:42:00 [facility] POCT GLUCOSE (AUTOMATED) 2019-12-05 [facility], [place] Univers ity of 13:00:00 [facility] POCT GLUCOSE (AUTOMATED) 2019-12-05 [facility], [place] Univers ity of 01:47:00 [facility] POCT GLUCOSE (AUTOMATED) 2019-12-04 [facility], [place] Univers ity of 22:34:00 [facility] POCT GLUCOSE (AUTOMATED) 2019-12-04 [facility], [place] Univers ity of 17:44:00 [facility] POCT GLUCOSE (AUTOMATED) 2019-12-04 [facility], [place] Univers ity of 13:53:00 [facility] BLOOD CULTURE SCREEN 2019-12-04 [facility] 05:52:00 [facility] BLOOD CULTURE SCREEN 2019-12-04 Prachi Molina [facility] of 05:39:00 [facility] COVID-19 (ID NOW RAPID TESTING) 2019-12-04 Mark Lopez [place] of 01:38:00 [facility] C-REACTIVE PROTEIN 2019-12-03 Prachi Molina [place] of 22:22:00 [facility] COMP. METABOLIC PANEL (24347) 2019-12-03 [facility] of 22:22:00 [facility] SEDIMENTATION RATE 2019-12-03 Prachi Molina [place] of 22:22:00 [facility] CBC WITH DIFF 2019-12-03 [facility] of 22:22:00 [facility] GLYCOSYLATED HEMOGLOBIN (A1C) 2019-12-03 [facility] of 22:22:00 [facility] XR FOOT 3+ VW RIGHT 2019-12-03 aCrole Kuhn [place] of 22:05:22 Darlin [facility] PHYSICIAN ORDERS 2019-09-28 [facility] of 05:01:00 Unassigned, No [facility] POCT GLUCOSE (AUTOMATED) 2019-09-16 Kumfa, Ángel Univers ity of 22:42:00 [facility] POCT GLUCOSE (AUTOMATED) 2019-09-16 Kum, Ángel Univers ity of 18:01:00 [facility] POCT GLUCOSE (AUTOMATED) 2019-09-16 Kum, Ángel Univers ity of 13:45:00 [facility] POCT GLUCOSE (AUTOMATED) 2019-09-16 [facility], Ángel Univers ity of 09:01:00 [facility] POCT GLUCOSE (AUTOMATED) 2019-09-16 [facility], Ángel Univers ity of 04:37:00 [facility] POCT GLUCOSE (AUTOMATED) 2019-09-16 [facility], Ángel Univers ity of 01:23:00 [facility] POCT GLUCOSE (AUTOMATED) 2019-09-15 [facility], Ángel Univers ity of 22:53:00 [facility] US ABDOMEN LIMITED 2019-09-15 [facility] of 20:32:32 [facility] POCT GLUCOSE (AUTOMATED) 2019-09-15 [facility], Ángel Univers ity of 18:09:00 [facility] XR KUB 2019-09-15 [facility] of 15:14:00 [facility] POCT GLUCOSE (AUTOMATED) 2019-09-15 [facility], Ángel Univers ity of 14:58:00 [facility] CBC WITH DIFFERENTIAL 2019-09-15 [facility] of 09:38:00 [facility] HEPATIC FUNCTION PANEL ([id number]) 2019-09-15 [facility], [facility] niversity of (ALB,T.PRO,BILI 09:38:00 [facility],BU/BC,ALT,AST,ALK PHOS) [place] BASIC METABOLIC PANEL (NA, K, CL, 2019-09-15 [facility], [facility] of CO2, GLUCOSE, BUN, CREATININE, CA) 09:38:00 [facility] POCT GLUCOSE (AUTOMATED) 2019-09-15 [facility], Ángel Univers ity of 09:04:00 [facility] POCT GLUCOSE (AUTOMATED) 2019-09-15 Kumfa, Ángel Univers ity of 04:53:00 [facility] POCT GLUCOSE (AUTOMATED) 2019-09-15 Kumfa, Ángel [facility] ity of 01:49:00 [facility] POCT GLUCOSE (AUTOMATED) 2019-09-14 Kumfa, Ángel [facility] ity of 22:24:00 [facility] CBC WITH DIFFERENTIAL 2019-09-14 Dafne Moya Universit y of 16:59:00 [facility] POCT GLUCOSE (AUTOMATED) 2019-09-14 Kumfa, Ángel [facility] ity of 14:10:00 [facility] POCT GLUCOSE (AUTOMATED) 2019-09-14 Kumfa, Ángel [facility] ity of 09:09:00 [facility] POCT GLUCOSE (AUTOMATED) 2019-09-14 Kumfa, Ángel [facility] ity of 05:05:00 [facility] POCT GLUCOSE (AUTOMATED) 2019-09-14 Kumfa, Ángel [facility] ity of 01:40:00 [facility] POCT GLUCOSE (AUTOMATED) 2019-09-13 Kumfa, Ángel Univers ity of 21:22:00 [facility] POCT GLUCOSE (AUTOMATED) 2019-09-13 Kumfa, Ángel [facility] ity of 17:24:00 [facility] LACTIC ACID WHOLE BLOOD 2019-09-13 Dafne Moya Univers ity of 17:03:00 [facility] POCT GLUCOSE (AUTOMATED) 2019-09-13, Ángel Univers ity of 13:37:00 [facility] CBC WITH DIFFERENTIAL 2019-09-13 Tasneem Marin of 09:27:00 [facility] COMP. METABOLIC PANEL ([id number]) 2019-09-13 Tasneem Marin iversity of 09:27:00 [facility] POCT GLUCOSE (AUTOMATED) 2019-09-13 Kumfa, Ángel Univers ity of 09:21:00 [facility] POCT GLUCOSE (AUTOMATED) 2019-09-13 Kumfa, Ángel [facility] ity of 01:13:00 [facility] POCT GLUCOSE (AUTOMATED) 2019-09-12 Kumfa, Ángel Univers ity of 22:32:00 [facility] POCT GLUCOSE (AUTOMATED) 2019-09-12 Kumfa, Ángel [facility] ity of 19:08:00 [facility] POCT GLUCOSE (AUTOMATED) 2019-09-12 Kumfa, Ángel Univers ity of 17:09:00 [facility] POCT GLUCOSE (AUTOMATED) 2019-09-12 Kumfa, Ángel Univers ity of 12:56:00 [facility] CBC WITH DIFFERENTIAL 2019-09-12 [facility] of 08:58:00 [facility] MAGNESIUM 2019-09-12 [facility] of 08:58:00 [facility] BASIC METABOLIC PANEL (NA, K, CL, 2019-09-12 [facility] of CO2, GLUCOSE, BUN, CREATININE, CA) 08:58:00 [facility] POCT GLUCOSE (AUTOMATED) 2019-09-12 Kumfa, Ángel [facility] ity of 08:52:00 [facility] POCT GLUCOSE (AUTOMATED) 2019-09-12 Kumfa, Ángel [facility] ity of 08:08:00 [facility] POCT GLUCOSE (AUTOMATED) 2019-09-12 Kumfa, Ángel [facility] ity of 05:46:00 [facility] POCT GLUCOSE (AUTOMATED) 2019-09-12 Kumfa, Ángel Univers ity of 00:56:00 [facility] POCT GLUCOSE (AUTOMATED) 2019-09-11 Kumfa, Ángel Univers ity of 21:57:00 [facility] POCT GLUCOSE (AUTOMATED) 2019-09-11 Kumfa, Ángel Univers ity of 21:20:00 [facility] POCT GLUCOSE (AUTOMATED) 2019-09-11 Kumfa, Ángel Univers ity of 18:07:00 [facility] POCT GLUCOSE (AUTOMATED) 2019-09-11 Kumfa, Ángel Univers ity of 17:11:00 [facility] POCT GLUCOSE (AUTOMATED) 2019-09-11 Kumfa, Ángel [facility] ity of 14:06:00 [facility] POCT GLUCOSE (AUTOMATED) 2019-09-11 Kumfa, Ángel Univers ity of 13:15:00 [facility] CBC WITH DIFFERENTIAL 2019-09-11 [facility] of 11:15:00 [facility] MAGNESIUM 2019-09-11 [facility] of 11:15:00 [facility] BASIC METABOLIC PANEL (NA, K, CL, 2019-09-11 [facility] of CO2, GLUCOSE, BUN, CREATININE, CA) 11:15:00 [facility] POCT GLUCOSE (AUTOMATED) 2019-09-11 Kumfa, Ángel Univers ity of 01:45:00 [facility] POCT GLUCOSE (AUTOMATED) 2019-09-10 Kumfa, Ángel Univers ity of 21:35:00 [facility] POCT GLUCOSE (AUTOMATED) 2019-09-10 Kumfa, Ángel [facility] ity of 17:59:00 [facility] CBC WITH DIFFERENTIAL 2019-09-10 [facility] of 09:28:00 [facility] MAGNESIUM 2019-09-10 [facility] of 09:28:00 [facility] BASIC METABOLIC PANEL (NA, K, CL, 2019-09-10 [facility] of CO2, GLUCOSE, BUN, CREATININE, CA) 09:28:00 [facility] POCT GLUCOSE (AUTOMATED) 2019-09-10 Kumfa, Ángel Univers ity of 02:00:00 [facility] PROFILE / HEMOGRAM 2019-09-09 [facility] o f 22:23:00 [facility] POCT GLUCOSE (AUTOMATED) 2019-09-09 Kumfa, Ángel Univers ity of 21:48:00 [facility] POCT GLUCOSE (AUTOMATED) 2019-09-09 Kumfa, Ángel Univers ity of 17:38:00 [facility] POCT GLUCOSE (AUTOMATED) 2019-09-09 [facility], Ángel Univers ity of 13:46:00 [facility] CBC WITH DIFFERENTIAL 2019-09-09 [facility] of 09:13:00 [facility] MAGNESIUM 2019-09-09 [facility] of 09:13:00 [facility] BASIC METABOLIC PANEL (NA, K, CL, 2019-09-09 [facility] of CO2, GLUCOSE, BUN, CREATININE, CA) 09:13:00 [facility] MRSA / MSSA SCREEN BY PCR, [place] 2019-09-09 [facility] 06:04:00 [facility] BLOOD CULTURE SCREEN 2019-09-09 [facility] 04:43:00 [facility] PROFILE / HEMOGRAM 2019-09-09 Crystal [facility] 04:43:00 [facility] BLOOD CULTURE SCREEN 2019-09-09 [facility]ini [facility] 04:37:00 [facility] PREPARE PACKED RBC 2019-09-09 [facility] of 01:41:57 [facility] POCT GLUCOSE (AUTOMATED) 2019-09-09 Monica Peñail Univers ity of 00:50:00 [facility] XR CHEST 1 VW 2019-09-08 [facility] of 23:40:55 [facility] FL TIME OR (NON-REPORTABLE) 2019-09-08 [facility] ersity of 23:15:23 [facility] PROTHROMBIN TIME / INR 2019-09-08 [facility] Sam [facility] of 22:55:02 [facility] COMP. METABOLIC PANEL ([id number]) 2019-09-08 Ema Sam U niversity of 22:55:02 [facility] CBC WITH DIFFERENTIAL 2019-09-08 [facility] 22:52:31 [facility] TYPE AND SCREEN 2019-09-08 Ema Sam [place] of 22:08:00 [facility] ARTERIOGRAM 2019-09-08 Ema Sam [place] of 16:39:00 [facility] POCT GLUCOSE (AUTOMATED) 2019-09-08 [facility] Univers ity of 12:53:00 [facility] CBC WITH DIFFERENTIAL 2019-09-08 [facility] of 10:56:00 [facility] MAGNESIUM 2019-09-08 [facility] of 10:56:00 [facility] BASIC METABOLIC PANEL (NA, K, CL, 2019-09-08 [facility] of CO2, GLUCOSE, BUN, CREATININE, CA) 10:56:00 [facility] POCT GLUCOSE (AUTOMATED) 2019-09-08 Mariana, Ángel Univers ity of 03:09:00 [facility] POCT GLUCOSE (AUTOMATED) 2019-09-08 [facility], Ángel Univers ity of 01:45:00 [facility] POCT GLUCOSE (AUTOMATED) 2019-09-07 Mariana, Ángel Univers ity of 22:13:00 [facility] IR BIOPSY BONE DEEP WITH FLUORO 2019-09-07 [facility] of 20:07:06 [facility] TISSUE CULTURE(AEROBIC/ANAEROBIC) 2019-09-07 Venkatesh Saravia [place] of 19:42:00 [facility] POCT GLUCOSE (AUTOMATED) 2019-09-07 Kummaryjane, Ángel Univers ity of 17:19:00 [facility] COVID-19 (ID NOW RAPID TESTING) 2019-09-07 [facility] of 13:34:00 [facility] POCT GLUCOSE (AUTOMATED) 2019-09-07 Kumfa, Ángel Univers ity of 13:28:00 [facility] CBC WITH DIFFERENTIAL 2019-09-07 [facility] of 10:19:00 [facility] MAGNESIUM 2019-09-07 [facility] of 10:19:00 [facility] BASIC METABOLIC PANEL (NA, K, CL, 2019-09-07 Babu, [facility] of CO2, GLUCOSE, BUN, CREATININE, CA) 10:19:00 [facility] POCT GLUCOSE (AUTOMATED) 2019-09-07 Kummaryjane, Ángel Univers ity of 01:17:00 [facility] POCT GLUCOSE (AUTOMATED) 2019-09-06 Kummaryjane, Ángel Univers ity of 20:58:00 [facility] POCT GLUCOSE (AUTOMATED) 2019-09-06 Kummaryjane, Ángel Univers ity of 17:09:00 [facility] POCT GLUCOSE (AUTOMATED) 2019-09-06 [facility], Ángel Univers ity of 13:19:00 [facility] CBC WITH DIFFERENTIAL 2019-09-06 [facility] of 10:52:00 [facility] PROTHROMBIN TIME / INR 2019-09-06 [facility] Universit y of 10:52:00 [facility] MAGNESIUM 2019-09-06 [facility] of 10:52:00 [facility] BASIC METABOLIC PANEL (NA, K, CL, 2019-09-06 [facility] of CO2, GLUCOSE, BUN, CREATININE, CA) 10:52:00 [facility] POCT GLUCOSE (AUTOMATED) 2019-09-06 Kummaryjane, Ángel Univers ity of 01:50:00 [facility] POCT GLUCOSE (AUTOMATED) 2019-09-05 Kumfa, Ángel Univers ity of 22:09:00 [facility] POCT GLUCOSE (AUTOMATED) 2019-09-05 Kumfa, Ángel Univers ity of 17:14:00 [facility] POCT GLUCOSE (AUTOMATED) 2019-09-05 Kumfa, Ángel Univers ity of 13:19:00 [facility] CBC WITH DIFFERENTIAL 2019-09-05 Babu, [facility] University of 11:14:00 [facility] MAGNESIUM 2019-09-05 Babu, [facility] University of 11:14:00 [facility] BASIC METABOLIC PANEL (NA, K, CL, 2019-09-05 Bab, [facility] of CO2, GLUCOSE, BUN, CREATININE, CA) 11:14:00 [facility] POCT GLUCOSE (AUTOMATED) 2019-09-05 Kumfa, Ángel Univers ity of 01:37:00 [facility] POCT GLUCOSE (AUTOMATED) 2019-09-04 Kumfa, Ángel Univers ity of 22:29:00 [facility] POCT GLUCOSE (AUTOMATED) 2019-09-04 Kumfa, Ángel Univers ity of 17:00:00 [facility] POCT GLUCOSE (AUTOMATED) 2019-09-04 Kumfa, Ángel Univers ity of 13:32:00 [facility] POCT GLUCOSE (AUTOMATED) 2019-09-04 Kumfa, Ángel Univers ity of 13:12:00 [facility] CBC WITH DIFFERENTIAL 2019-09-04 Babu, [facility] of 09:14:00 [facility] MAGNESIUM 2019-09-04 [facility] of 09:14:00 [facility] BASIC METABOLIC PANEL (NA, K, CL, 2019-09-04 [facility] of CO2, GLUCOSE, BUN, CREATININE, CA) 09:14:00 [facility] POCT GLUCOSE (AUTOMATED) 2019-09-04 Kumfa, Ángel Univers ity of 02:00:00 [facility] POCT GLUCOSE (AUTOMATED) 2019-09-03 Kumfa, Ángel Univers ity of 22:37:00 [facility] POCT GLUCOSE (AUTOMATED) 2019-09-03 Kumfa, Ángel [facility] of 17:53:00 [facility] POCT GLUCOSE (AUTOMATED) 2019-09-03 Kumfa, Ángel [facility] of 14:10:00 [facility] CBC WITH DIFFERENTIAL 2019-09-03 [facility] of 10:47:00 [facility] MAGNESIUM 2019-09-03 [facility] of 10:47:00 [facility] BASIC METABOLIC PANEL (NA, K, CL, 2019-09-03 [facility] of CO2, GLUCOSE, BUN, CREATININE, CA) 10:47:00 [facility] POCT GLUCOSE (AUTOMATED) 2019-09-03 Kumfa, Ángel [facility] of 01:51:00 [facility] POCT GLUCOSE (AUTOMATED) 2019-09-02 Kumfa, Ángel [facility] of 22:25:00 [facility] POCT GLUCOSE (AUTOMATED) 2019-09-02 Kumfa, Ángel [facility] of 17:56:00 [facility] IR BIOPSY BONE DEEP WITH FLUORO 2019-09-02 [facility] of 16:53:03 [facility] TISSUE CULTURE(AEROBIC/ANAEROBIC) 2019-09-02 [facility] of 16:25:00 [facility] SURGICAL PATHOLOGY EXAM 2019-09-02 [facility] 16:25:00 [facility] POCT GLUCOSE (AUTOMATED) 2019-09-02 [facility] Ángel [facility] of 13:02:00 [facility] CBC WITH DIFFERENTIAL 2019-09-02 [facility] of 10:52:00 [facility] PROTHROMBIN TIME / IN[facility]02 [facility]00 [facility] MAGNESIUM 2019-09-02 [facility] of 10:52:00 [facility] BASIC METABOLIC PANEL (NA, K, CL, 2019-09-02 [facility] of CO2, GLUCOSE, BUN, CREATININE, CA) 10:52:00 [facility] POCT GLUCOSE (AUTOMATED) 2019-09-02 [facility] of 02:53:00 [facility] POCT GLUCOSE (AUTOMATED) 2019-09-01 [facility], Ángel [facility] of 22:48:00 [facility] WOUND/ASPIRATE OR ABSCESS CULTURE 2019-09-01 Pennie [facility] of 21:20:00 [facility] WOUND CULTURE 2019-09-01 Penn[facility] of 21:20:00 [facility] CBC WITH DIFFERENTIAL 2019-09-[address] [facility] of 17:11:00 [facility] POCT GLUCOSE (AUTOMATED) 2019-09-01 [facility] Ángel [facility] of 17:02:00 [facility] CBC WITH DIFFERENTIAL 2019-09-01 Jesus Tucker of 10:08:00 Darrian Vigil [facility] MAGNESIUM 2019-09-01 [facility] of 10:08:00 [facility] BASIC METABOLIC PANEL (NA, K, CL, 2019-09-01 [facility] CO2, GLUCOSE, BUN, CREATININE, CA) 10:08:00 Darrian cruz [facility] POCT GLUCOSE (AUTOMATED) 2019-09-01 [facility], Ángel [facility] of 04:58:00 [facility] MR ANKLE RIGHT W WO CONTRAST 2019-09-01 Kalyn, Jarad Uni versity of 04:14:50 [facility] MR FOOT RIGHT W WO CONTRAST 2019-09-01 Kalyn, Jarad Univ ersity of 04:12:59 [facility] POCT GLUCOSE (AUTOMATED) 2019-09-01 [facility], Ángel [facility] of 02:50:00 [facility] POCT GLUCOSE (AUTOMATED) 2019-09-01 [facility], Ángel [facility] of 01:35:00 [facility] PROFILE / HEMOGRAM 2019-08-31 [facility] o f 22:15:00 [facility] POCT GLUCOSE (AUTOMATED) 2019-08-31 [facility] Ángel [facility] of 21:49:00 [facility] EKG-12 LEAD 2019-08-31 Gil, [facility] of 18:06:04 [facility] EGD (ENDO) 2019-08-31 [facility] of 17:54:17 [facility] ESOPHAGOGASTRODUODENOSCOPY 2019-08-31 Ana Paula Melo rsity of 17:48:00 Muhannatreva [facility] POCT GLUCOSE (AUTOMATED) 2019-08-31 [facility] Ángel [facility] of 17:20:00 [facility] BASIC METABOLIC PANEL (NA, K, CL, 2019-08-31 Tasneem Marin [place] of CO2, GLUCOSE, BUN, CREATININE, CA) 16:15:00 [facility] POCT GLUCOSE (AUTOMATED) 2019-08-31 [facility], Ángel [facility] of 14:59:00 [facility] PROTHROMBIN TIME / INR 2019-08-31 [facility] ty of 14:42:00 [facility] ACTIVATED PARTIAL THRMPLAS MISTY 2019-08-31 [facility] 14:42:00 [facility] HB ABO GROUPING 2019-08-31 [facility] of 14:42:00 [facility] CBC WITH DIFFERENTIAL 2019-08-31 [facility] 10:59:00 [facility] MAGNESIUM 2019-08-31 [facility] 10:59:00 [facility] BASIC METABOLIC PANEL (NA, K, CL, 2019-08-31 [facility] CO2, GLUCOSE, BUN, CREATININE, CA) 10:59:00 [facility] URINALYSIS 2019-08-31 [facility] 06:54:00 [facility] CREATININE, URINE RANDOM 2019-08-31 [facility], [facility] ity of 06:53:00 [facility] UREA NITROGEN, URINE RANDOM 2019-08-31 [facility], Univ ersity of 06:53:00 [facility] XR FOOT <3 VW RIGHT 2019-08-31 [facility] o f 02:01:00 [facility] LACTIC ACID WHOLE BLOOD 2019-08-31 [facility] 01:09:00 [facility] COVID-19 (ID NOW RAPID TESTING) 2019-08-31 [facility] 01:09:00 [facility] BLOOD CULTURE SCREEN 2019-08-31 [facility] 01:09:00 [facility] SEDIMENTATION RATE 2019-08-31 [facility] 01:07:00 [facility] CBC WITH DIFFERENTIAL 2019-08-31 [facility] 01:07:00 [facility] C-REACTIVE PROTEIN 2019-08-31 [facility] 01:07:00 [facility] COMP. METABOLIC PANEL (25905) 2019-08-31 Magdi iversity of 01:07:00 [facility] VANCOMYCIN RANDOM LEVEL 2019-08-16 Ben Alcantar [facility] of 20:24:00 [facility] POCT GLUCOSE (AUTOMATED) 2019-08-16 Susan Hollingsworth [facility] it[facility] of 17:08:00 [facility] POCT GLUCOSE (AUTOMATED) 2019-08-16 Darrick, Mukaila [facility] it[facility] of 13:32:00 [facility] PHOSPHORUS 2019-08-16 Ortiz [facility] of 08:42:00 [facility] MAGNESIUM 2019-08-16 [facility] of 08:42:00 [facility] BASIC METABOLIC PANEL (NA, K, CL, 2019-08-16 [facility] CO2, GLUCOSE, BUN, CREATININE, CA) 08:42:00 [facility] CBC WITH DIFFERENTIAL 2019-08-16 Ortiz Devens [facility] of 08:42:00 [facility] POCT GLUCOSE (AUTOMATED) 2019-08-16 Darrick, Mukaila [facility] of 02:43:00 [facility] POCT GLUCOSE (AUTOMATED) 2019-08-15 Darrick, Mukaila [facility] of 16:46:00 [facility] POCT GLUCOSE (AUTOMATED) 2019-08-15 Darrick, Mukaila [facility] of 13:30:00 [facility] PHOSPHORUS 2019-08-15 Ortiz [facility] of 09:51:00 [facility] MAGNESIUM 2019-08-15 [facility] of 09:51:00 [facility] BASIC METABOLIC PANEL (NA, K, CL, 2019-08-15 [facility] of CO2, GLUCOSE, BUN, CREATININE, CA) 09:51:00 [facility] VANCOMYCIN TROUGH 2019-08-15 Ortiz [facility] of 09:51:00 [facility] CBC WITH DIFFERENTIAL 2019-08-15 Levi Alcantarrett Universit y of 09:51:00 [facility] POCT GLUCOSE (AUTOMATED) 2019-08-15 Darrick, Mukaila [facility] it[facility] of 05:46:00 [facility] POCT GLUCOSE (AUTOMATED) 2019-08-15 Darrick, Mukaila [facility] ity of 02:43:00 [facility] POCT GLUCOSE (AUTOMATED) 2019-08-14 Darrick, Mukaila [facility] it[facility] of 20:18:00 [facility] POCT GLUCOSE (AUTOMATED) 2019-08-14 Darrick, Mukaila [facility] it[facility] of 14:37:00 [facility] PHOSPHORUS 2019-08-14 Ortiz [facility] of 09:44:00 [facility] MAGNESIUM 2019-08-14 Ben Alcantar [place] of 09:44:00 [facility] BASIC METABOLIC PANEL (NA, K, CL, 2019-08-14 Kim Alcantar [employer] of CO2, GLUCOSE, BUN, CREATININE, CA) 09:44:00 [facility] VANCOMYCIN RANDOM LEVEL 2019-08-14 Ben Alcantar [facility] ity of 09:44:00 [facility] CBC WITH DIFFERENTIAL 2019-08-14 Ben [facility]cantar [facility] 09:44:00 [facility] POCT GLUCOSE (AUTOMATED) 2019-08-14 Susan Hollingsworth [facility] it[facility] of 04:23:00 [facility] XR CHEST 1 VW 2019-08-14 Ben Alcantar [place] of 01:34:19 [facility] POCT GLUCOSE (AUTOMATED) 2019-08-14 Susan Hollingsworth [facility] of 00:08:00 [facility] CBC WITH DIFFERENTIAL 2019-08-13 Merritt Michaels [place] of 21:35:00 [facility] GLYCOSYLATED HEMOGLOBIN (A1C) 2019-08-13 Ben Alcantar U niversity of 21:35:00 [facility] BLOOD CULTURE SCREEN 2019-08-13 Shakeel Lorenzo [facility] y of 20:16:00 [facility] COVID-19 (ID NOW RAPID TESTING) 2019-08-13 Shakeel Lorenzo [place] of 20:06:00 [facility] XR FOOT 3+ VW RIGHT 2019-08-13 [facility] f 19:35:20 [facility] COMP. METABOLIC PANEL (15929) 2019-08-13 Merritt Michaels iversity of 19:17:00 [facility] LIPID PANEL (32331)(TOTAL 2019-08-13 Ben Alcantar Unive rsity of CHOLESTEROL, TRIGLYCERIDES, HDL) 19:17:00 [facility] POCT GLUCOSE (AUTOMATED) 2019-08-07 Geri Saba [facility] ity of 21:08:00 [facility] HEMOGLOBIN 2019-08-07 Geri Saba University of 18:15:00 [facility] POCT GLUCOSE (AUTOMATED) 2019-08-07 Geri Saba ity of 16:20:00 [facility] POCT GLUCOSE (AUTOMATED) 2019-08-07 Geri Saba [facility] ity of 13:51:00 [facility] BASIC METABOLIC PANEL (NA, K, CL, 2019-08-07 [facility] of CO2, GLUCOSE, BUN, CREATININE, CA) 13:32:00 [facility] CBC WITH DIFFERENTIAL 2019-08-07 [facility] of 13:32:00 [facility] VITAMIN B12, LEVEL 2019-08-07 [facility] of 13:31:00 [facility] FOLATE 2019-08-07 [facility] of 13:31:00 [facility] HEMOGLOBIN 2019-08-07 [facility] of 13:31:00 [facility] TRANSFUSE PACKED RBC 2019-08-07 Dena Faye [place] of 11:47:57 [facility] PREPARE PACKED RBC 2019-08-07 Yunier [facility] o f 07:41:17 [facility] HEMOGLOBIN 2019-08-07 [facility] of 05:05:00 [facility] HEMATOCRIT 2019-08-07 [facility] 05:05[facility]00 [facility] POCT GLUCOSE (AUTOMATED) 2019-08-06 [facility] ity of 21:59:00 [facility] URINALYSIS 2019-08-06 Dena Faye [place] of 19:15:00 [facility] CORONAVIRUS COVID-19 TESTING 2019-08-06 Dena Faye iversity of 18:37:00 [facility] HB ABO GROUPING 2019-08-06 Dena Faye [place] of 18:17:00 [facility] EKG-12 LEAD 2019-08-06 Dena Faye [place] of 18:02:17 [facility] CT HEAD WO CONTRAST 2019-08-06 Dena Faye [place] of 17:56:23 [facility] CT ANGIOGRAM HEAD 2019-08-06 Dena Faye [place] of 17:56:00 [facility] CT ANGIOGRAM NECK 2019-08-06 Dena Faye [place] of 17:56:00 [facility] CBC WITH DIFFERENTIAL 2019-08-06 [facility] Faye [facility] 17:41:00 [facility] RETICULOCYTES AUTOMATED 2019-08-06 [facility] of 17:41:00 [facility] MAGNESIUM 2019-08-06 [facility] 17:40:00 Leah [facility] FERRITIN SERUM 2019-08-06 [facility] of 17:40:00 [facility] TROPONIN I 2019-08-06 Yunier Dena [place] of 17:40:00 J [facility] THYROID STIMULATING HORMONE 2019-08-06 [facility] ersity of 17:40:00 [facility] COMP. METABOLIC PANEL (35435) 2019-08-06 Dena Faye niversity of 17:40:00 J [facility] IRON PANEL 2019-08-06 [facility] of 17:40:00 [facility] PROTHROMBIN TIME / INR 2019-08-06 Dena Faye [facility] of 17:40:00 J [facility] ACTIVATED PARTIAL THRMPLAS MISTY 2019-08-06 Dena Faye [place] of 17:40:00 J [facility] EKG-12 LEAD 2019-08-06 Yunier [facility] of 17:38:27 J [facility] POCT GLUCOSE (AUTOMATED) 2019-06-12 Cammie Greenberg Univers ity of 17:12:00 [facility] POCT GLUCOSE (AUTOMATED) 2019-06-12 Cammie Greenberg [facility] ity of 12:50:00 [facility] POCT GLUCOSE (AUTOMATED) 2019-06-12 Cammie Greenberg [facility] ity of 11:02:00 [facility] MAGNESIUM 2019-06-12 [employer], [facility] of 09:29:00 [facility] BASIC METABOLIC PANEL (NA, K, CL, 2019-06-12 [employer], [facility] of CO2, GLUCOSE, BUN, CREATININE, CA) 09:29:00 [facility] CBC WITH DIFFERENTIAL 2019-06-12 [employer], [facility] of 09:29:00 [facility] POCT GLUCOSE (AUTOMATED) 2019-06-12 Cammie Greenberg [facility] ity of 05:04:00 [facility] EKG-12 LEAD 2019-06-11 Cammie Greenberg University of 23:55:17 [facility] POCT GLUCOSE (AUTOMATED) 2019-06-11 Cammie Greenberg Univers ity of 21:58:00 [facility] POCT GLUCOSE (AUTOMATED) 2019-06-11 Cammie Greenberg [facility] ity of 16:04:00 [facility] MAGNESIUM 2019-06-11 Aden Munroe [place] of 09:42:00 [facility] BASIC METABOLIC PANEL (NA, K, CL, 2019-06-11 Ludwig Aden [place] of CO2, GLUCOSE, BUN, CREATININE, CA) 09:42:00 [facility] CBC WITH DIFFERENTIAL 2019-06-11 Ludwig Aden [place] of 09:42:00 [facility] POCT GLUCOSE (AUTOMATED) 2019-06-11 Cammie Greenberg E Univers ity of 05:29:00 [facility] POCT GLUCOSE (AUTOMATED) 2019-06-11 Cammie Greenberg E Univers ity of 05:25:00 [facility] POCT GLUCOSE (AUTOMATED) 2019-06-10 Cammie Greenberg E Univers ity of 22:17:00 [facility] POCT GLUCOSE (AUTOMATED) 2019-06-10 Cammie Greenberg E Univers ity of 18:29:00 [facility] BILATERAL VEIN MAPPING BY VASCULAR 2019-06-10 [facility] 13:42:03 Bisi Raygoza [facility] BILATERAL VEIN MAPPING BY VASCULAR 2019-06-10 [facility] LAB 13:36:50 Bisi Raygoza [facility] MAGNESIUM 2019-06-10 Munroe [facility] of 10:51:00 [facility] BASIC METABOLIC PANEL (NA, K, CL, 2019-06-10 Ludwig Aden [place] of CO2, GLUCOSE, BUN, CREATININE, CA) 10:51:00 [facility] CBC WITH DIFFERENTIAL 2019-06-10 [place], [facility] of 10:51:00 [facility] POCT GLUCOSE (AUTOMATED) 2019-06-10 Cammie Greenberg [facility] ity of 10:49:00 [facility] POCT GLUCOSE (AUTOMATED) 2019-06-10 Cammie Greenberg [facility] ity of 04:38:00 [facility] POCT GLUCOSE (AUTOMATED) 2019-06-10 Cammie Greenberg Univers ity of 01:17:00 [facility] FL TIME OR (NON-REPORTABLE) 2019-06-09 Betarbet, Udayan Uni versity of 19:40:00 [facility] ARTERIOGRAM 2019-06-[address] [facility] of 16:26:00 [facility] BASIC METABOLIC PANEL (NA, K, CL, 2019-06-09 Ludwig Aden [place] of CO2, GLUCOSE, BUN, CREATININE, CA) 16:08:00 [facility] POCT GLUCOSE (AUTOMATED) 2019-06-09 Dionicio Jacqueline Univers ity of 10:44:00 [facility] POCT GLUCOSE (AUTOMATED) 2019-06-09 Dionicio Jacqueline Univers ity of 05:46:00 [facility] POCT GLUCOSE (AUTOMATED) 2019-06-08 Dionicio Jacqueline Univers ity of 22:55:00 [facility] EKG-12 LEAD 2019-06-08 Cammie Greenberg E University of 20:15:34 [facility] POCT GLUCOSE (AUTOMATED) 2019-06-08 Dionicio Jacqueline Univers ity of 17:47:00 [facility] POCT GLUCOSE (AUTOMATED) 2019-06-08 Dionicio Jacqueline Univers ity of 11:53:00 [facility] POCT GLUCOSE (AUTOMATED) 2019-06-08 Dionicio Jacqueline Univers ity of 06:00:00 [facility] POCT GLUCOSE (AUTOMATED) 2019-06-07 Dionicio Jacqueilne Univers ity of 22:46:00 [facility] HB ABO GROUPING 2019-06-07 [facility] of 20:51:00 [facility] POCT GLUCOSE (AUTOMATED) 2019-06-07 Dionicio Jacqueline Univers ity of 17:10:00 [facility] EDGARDO MULTI LEVEL BY VASCULAR LAB 2019-06-07 Johnny Diamond of 15:04:20 [facility] UNILATERAL DUPLEX SCAN OF ARTERY 2019-06-07 [facility] of BY VASCULAR LAB 14:41:04 [facility] ECHO ROUTINE W/DOPPLER COLOR 2019-06-07 Johnny Diamond Un iversity of 13:50:38 [facility] MAGNESIUM 2019-06-07 Johnny Diamond of 11:05:00 [facility] BASIC METABOLIC PANEL (NA, K, CL, 2019-06-07 Castillo Diamond [place] of CO2, GLUCOSE, BUN, CREATININE, CA) 11:05:00 [facility] LIPID PANEL (72101)(TOTAL 2019-06-07 [employer], Sunitha Magdaleno sitroxy of CHOLESTEROL, TRIGLYCERIDES, HDL) 11:05:00 [facility] CBC WITH DIFFERENTIAL 2019-06-07 Johnny Diamondit y of 11:05:00 [facility] POCT GLUCOSE (AUTOMATED) 2019-06-07 Cammie Greenberg Univers ity of 10:56:00 [facility] POCT GLUCOSE (AUTOMATED) 2019-06-07 Cammie Greenberg [facility] ity of 06:21:00 [facility] EKG-12 LEAD 2019-06-07 Cammie Greenberg [place] of 05:54:16 [facility] URINALYSIS 2019-06-07 Bob [facility] of 04:37:00 [facility] CREATININE, URINE RANDOM 2019-06-07 Bob [place] [facility] of 04:37:00 [facility] UREA NITROGEN, URINE RANDOM 2019-06-07 Bob [place] [facility] versity of 04:37:00 [facility] SODIUM, URINE RANDOM 2019-06-07 Bob [facility] of 04:37:00 [facility] BLOOD CULTURE SCREEN 2019-06-07 Bob [facility] of 04:32:00 [facility] BLOOD CULTURE SCREEN 2019-06-07 Bob [facility] of 04:27:00 [facility] C-REACTIVE PROTEIN 2019-06-07 Bob [facility] o f 04:26:00 [facility] SEDIMENTATION RATE 2019-06-07 Bob [facility] o f 04:25:00 [facility] CBC WITH DIFFERENTIAL 2019-06-07 [facility] 04:25:00 [facility] GLYCOSYLATED HEMOGLOBIN (A1C) 2019-06-07 Bob Johnny U niversity of 04:25:00 [facility] BASIC METABOLIC PANEL (NA, K, CL, 2019-06-[address] [facility] of CO2, GLUCOSE, BUN, CREATININE, CA) 04:23:00 [facility] EKG-12 LEAD 2019-06-06 Kira Leija of 21:02:18 [facility] POTASSIUM SERUM 2019-06-06 Kira Leija of 20:19:00 [facility] XR FOOT 3+ VW RIGHT 2019-06-06 Kira Leija o f 19:37:38 [facility] HEPATIC FUNCTION PANEL (24534) 2019-06-06 Kira Leija niversity of (ALB,T.PRO,BILI 18:59:00 [facility],BU/BC,ALT,AST,ALK PHOS) [place] BASIC METABOLIC PANEL (NA, K, CL, 2019-06-06 Quynh Leija [place] of CO2, GLUCOSE, BUN, CREATININE, CA) 18:59:00 [facility] CBC WITH DIFFERENTIAL 2019-06-06 Kira Leija University of 18:59:00 [facility] [facility] PROTHROMBIN TIME / INR 2019-06-06 Kira Leija [facility] y of 18:59:00 [facility] ACTIVATED PARTIAL THRMPLAS MISTY 2019-06-06 Kira Leija U niversity of 18:59:00 [facility] POCT GLUCOSE (AUTOMATED) 2019-06-06 Kira Leija ity of 18:35:00 [facility] NOTICE OF PRIVACY PRACTICES 2019-06-06 Doctor [facility] ersity of 18:26:35 Unassigned, No [facility] CONSENT/REFUSAL FOR DIAGNOSIS AND 2019-06-06 Doctor [place] of TREATMENT 18:26:20 Unassigned, No [facility] Encounters Start End Encounter Admission Attending Care Care Encounter Source Date/Time Date/Time Type Type Clinicians Facility Department ID 2021-01-20 Emergency [facility] [id number] Univers 03:03:56 ity of [facility] 2021-01-20 [facility] [id number] Univers 01:33:25 EMA ity of [facility] 2021-01-19 Emergency [facility] [id number] Univers 17:08:32 ity of [facility] 2020-10-31 2020-10-[address] [facility] RADI LA0 [id number] [facility] 07:23:00 07:23:00 65 [facility] 2020-06-12 2020-06-12 Orders Doctor 1.2.840.114 [id number] Univers 00:00:00 00:00:00 Only Unassigned, MARBIN 350.1.13.10 ity of [place] [facility] 4.2.7.2.686 Kvng as [phone] [facility] [address] 2020-06-07 2020-06-07 Patient Emerita Bear 1.2.840.114 [id number] Univers 00:00:00 00:00:00 Outreach Shakeel Raya 350.1.13.10 [place] [phone] [facility] [address] 2020-06-02 2020-06-02 Patient Emerita Bear 1.2.840.114 [id number] Univers 00:00:00 00:00:00 Outreach Shakeel Dahlia Raya 350.1.13.10 [place] [phone] [facility] [address] [place] 2020-05-29 2020-05-29 Patient Kristan Gunter Emerita 1.2.840.114 [id number] Univers 00:00:00 00:00:00 Outreach E Raya 350.1.13.10 i [place] [phone] [place] [address] Branch 2020-05-29 2020-05-29 Transition Emerita Messer 1.2.840.114 [id number] Univers 00:00:00 00:00:00 of Care Vero Raya 350.1.13.10 [place] [phone] [address] 2020-05-29 2020-05-29 Patient Kristan Gunter Emerita 1.2.840.114 [id number] 00:00:00 00:00:00 Outreach E Raya 350.1.13.10 [place] 4.2.7.2.686 [id number] [facility] 2020-05-08 2020-05-08 Outpatient R [facility] [id number] Univers 16:15:00 16:15:00 ity of [facility] 2020-03-14 2020-03-14 Patient Marla Emerita 1.2.840.114 [id number] Univers 00:00:00 00:00:00 Outreach Tia E Raya 350.1.13.10 i [place] [id number] [place] [address] Branch 2020-03-02 2020-03-02 Office Faculty, Vascular Surg UNIVERSIT 1 .2.840.114 [id number] Univers 10:43:42 11:37:12 Visit Bryanna Gr R Y HEALTH 350.1.1 3.10 ity of [place] [phone] [place] [address] Branch 2020-03-02 2020-03-02 Outpatient R SIMÓN, [facility] [id number] Univers 10:30:00 10:30:00 BRYANNA ity of [facility] 2020-02-25 2020-02-25 Office Faculty, Vascular Surg UNIVERSIT 1 .2.840.114 [id number] Univers 09:15:27 09:30:27 Visit Gr, Bryanna R Y HEALTH 350.1.1 3.10 ity [place] [phone] [address] 2020-02-25 2020-02-25 [facility] [id number] Univers 09:30:00 09:30:00 BRYANNA ity [facility] 2020-02-23 2020-02-23 Patient Kristan Gunter 1.2.840.114 [id number] Univers 00:00:00 00:00:00 Outreach E Raya 350.1.13.10 i [place] [phone] [address] 2020-02-23 2020-02-23 Telephone [facility] 1.2.840.11 [id number] Univers 00:00:00 00:00:00 Bryanna R Y HEALTH 350.1.13.10 it[place] [phone] [address] 2020-02-23 2020-02-23 Telephone [facility] 1.2.840.114 [id number] Univers 00:00:00 00:00:00 Bryanna R SPECIALTY 350.1.13.10 it[place] [phone] [address] 2020-02-10 2020-02-10 Office Faculty, Vascular Surg UNIVERSIT 1 .2.840.114 [id number] Univers 10:01:22 10:16:22 Visit Gr, Bryanna R Y HEALTH 350.1.1 3.10 ity [place] [phone] [address] 2020-02-10 2020-02-10 Outpatient R [facility] [id number] Univers 10:00:00 10:00:00 ity of [facility] 2020-02-03 2020-02-03 Patient Kristan Gunter Emerita 1.2.840.114 [id number] Univers 00:00:00 00:00:00 Outreach E Raya 350.1.13.10 i [place] [id number] [address] 2020-02-02 2020-02-02 Transition Gui Emerita 1.2.840.114 [id number] Univers 00:00:00 00:00:00 of Care Verojatin Careyy 350.1.13.10 [place] [id number] [address] 2020-02-02 2020-02-02 Telephone MORRIS Sam 1.2.840.114 [id number] Univers 00:00:00 00:00:00 Ema JACKSON 350.1.13.10 ity of [place] [phone] [facility] [address] 2020-01-26 2020-02-01 Hospital Marty Jr Sophia Floyd 1.2.840. 114 [id number] Univers 11:46:00 19:58:00 Encounter Ema Sam 350.1.13.10 ity of [facility] 4.2.7.2.686 [place] [phone] [facility] 0[address] 2020-01-28 2020-01-28 Outpatient R CECY HERNANDEZ, [facility] [id number] Univers 11:00:00 11:00:00 EMA dennison of [facility] 2020-01-27 2020-01-27 Case Emerita Gutiérrez 1.2.840.114 [id number] Univers 00:00:00 00:00:00 Management Tia Sophia Raya 350.1.13.10 [place] [id number] [address] 2020-01-27 2020-01-27 Patient Emerita Gutiérrez 1.2.840.114 [id number] Univers 00:00:00 00:00:00 Outreach Tia E Raya 350.1.13.10 i [place] [phone] [facility] [address] 2020-01-17 2020-01-17 Office Faculty, Vascular Surg UNIVERSIT 1 .2.840.114 [id number] Univers 13:52:23 15:22:07 Visit Estrellita So 350.1.13.10 ity of [place] [phone] [facility] [address] 2020-01-17 2020-01-17 Outpatient R [facility] [id number] Univers 13:45:00 13:45:00 ity of [facility] 2020-01-13 2020-01-13 Office [facility] 1.2.279.995 [id number] Univers 10:20:05 10:50:05 Visit Roxy Rush 350.1.13.10 i ty of [facility] [place]2.7.[place] [phone] [facility] 0[address] 2020-01-13 2020-01-13 Outpatient R [facility] [id number] Univers 10:30:00 10:30:00 juma RUSH of [facility] 2020-01-13 2020-01-13 Orders Doctor 1.2.840.114 [id number] Univers 00:00:00 00:00:00 Only Unassigned, MARBIN 350.1.13.10 ity of [place] [facility] 4.2.7.2.686 Kvng as [phone] [facility] [address] 2020-01-12 2020-01-12 Patient Emerita Gutiérrez 1.2.840.114 [id number] Univers 00:00:00 00:00:00 Outreach Tia E Raya 350.1.13.10 i [place] [id number] [facility] [address] 2020-01-06 2020-01-06 Patient Kristan Gunter Emerita 1.2.840.114 [id number] Univers 00:00:00 00:00:00 Outreach E Raya 350.1.13.10 i [place] [phone] [address] 2019-12-31 2019-12-31 Patient Kristan Gunter 1.2.840.114 [id number] Univers 00:00:00 00:00:00 Outreach E Raya 350.1.13.10 i [place] [phone] [address] 2019-12-24 2019-12-24 Patient Kristan Gunter 1.2.840.114 [id number] Univers 00:00:00 00:00:00 Outreach E Raya 350.1.13.10 [place] [phone] [address] 2019-12-23 2019-12-23 Patient Kristan Gunter 1.2.840.114 [id number] Univers 14:03:29 14:33:29 Outreach E Raya 350.1.13.10 [place] [phone] [address] 2019-12-22 2019-12-22 Transition Emerita Messer 1.2.840.114 [id number] Univers 00:00:00 00:00:00 of Care Vero Raya 350.1.13.10 [place] [id number] [address] 2019-12-22 2019-12-22 Patient Kristan Gunter 1.2.840.114 [id number] Univers 00:00:00 00:00:00 Outreach E Raya 350.1.13.10 [place] [phone] [address] 2019-12-22 2019-12-22 Transition Emerita Messer 1.2.840.114 [id number] Univers 00:00:00 00:00:00 of Care Vero Raya 350.1.13.10 [place] [id number] [address] 2019-12-22 2019-12-22 Patient Emerita Gutiérrez 1.2.840.114 [id number] Univers 00:00:00 00:00:00 Outreach Tia Raya 350.1.13.10 i ty of [place] [phone] [facility] [address] 2019-12-03 2019-12-21 [facility] Andieluis angelCarole palmer 1 .2.840.114 [id number] Univers 15:07:00 19:14:00 Encounter Mireille Steve 350.1.13 .10 ity of [facility] 4.2.7.2.686 [place] Mireille Steve [phone] [address] 2019-12-06 2019-12-06 Outpatient R [facility] [id number] Univers 15:30:00 15:30:00 ity of [facility] 2019-10-25 2019-11-02 Office Faculty, Vascular Surg UNIVERSIT 1 .2.840.114 [id number] Univers 16:06:54 12:34:27 Visit JewellEma [facility] 350.1.13.10 ity of [place] [phone] [facility] [address] 2019-10-25 2019-10-25 Outpatient R [facility] [id number] Univers 16:00:00 16:00:00 ity of [facility] 2019-10-11 2019-10-19 Office Faculty, Vascular Surg UNIVERSIT 1 .2.840.114 [id number] Univers 15:39:40 12:43:28 Visit Ema Sam [facility] 350.1.13.10 ity of [place] [id number] [facility] [address] 2019-10-12 2019-10-12 Telephone Miranda NJALICIA 1.2.840.114 [id number] Univers 00:00:00 00:00:00 Bianca Moseley MULTISPEC 350.1.13.10 ity of [place] [phone] [facility] AND [place] [address] [place] [address] [facility] 2019-10-11 2019-10-11 Outpatient R [facility] [id number] Univers 15:45:00 15:45:00 ity of [facility] 2019-09-28 2019-09-28 Orders Doctor 1.2.840.114 [id number] Univers 00:00:00 00:00:00 Only Unassigned, MARBIN 350.1.13.10 ity of [place] [facility] 4.2.7.2.686 [place]vng as [phone] [facility] [address] 2019-09-23 2019-09-23 Letter Gerardo Peña 1.2.840.114 [id number] Univers 00:00:00 00:00:00 (Out) N Marbin 350.1.13.10 it y of [facility] 4.2.7.2.686 [place] [phone] [facility] [address] [place] 2019-09-20 2019-09-20 Outpatient R [facility] [id number] Univers 15:15:00 15:15:00 ity of [facility] 2019-09-20 2019-09-20 Telemedici Faculty, Vascular Surg UNIVERSI 1.2.840.114 [id number] Univers 07:46:15 08:01:15 ne Visit Estrellita So [facility] 350.1.13.1 0 ity of CL[place] [phone] [facility] [address] 2019-09-17 2019-09-17 Transition Emerita Schmitz 1.2.840.114 [id number] Univers 00:00:00 00:00:00 of Care Seun Raya 350.1.13.10 [place] of [place] [id number] [facility] [address] 2019-08-30 2019-09-16 Inpatient X MARIANA [facility] [id number] Univers 19:22:14 19:37:00 ÁNGEL ity of [facility] 2019-08-30 2019-09-16 Hospital Lisandra [place] 1.2. 840.114 [id number] Univers 19:22:14 19:37:00 Encounter Ángel Peña 350.1.13.10 ity of Hospital 4.2.7.2.686 [place] [id number] [facility] [address] 2019-08-18 2019-08-18 Transition Emerita Messer 1.2.840.114 [id number] Univers 00:00:00 00:00:00 of Care Vero Raya 350.1.13.10 [place] of [place] [id number] [facility] [address] 2019-08-13 2019-08-16 Inpatient X [facility] [id number] Univers 13:27:39 18:12:00 MUKAILA ity of [facility] 2019-08-13 2019-08-16 Hospital Shakeel Lorenzo 1.2.840 .114 [id number] Univers 13:27:39 18:12:00 Encounter Susan Hollingsworth 350.1.13.10 ity of [facility] 4.2.7.2.686 [place] [phone] [facility] [address] 2019-08-06 2019-08-07 Outpatient X [facility] [id number] Univers 12:28:23 18:18:00 GERI ity of [facility] 2019-08-06 2019-08-07 Emergency Dena Faye [facility] 1.2.8 40.114 [id number] Univers 12:28:23 18:18:00 Geri Saba Bulverde 350.1.13.10 ity of [place] [phone] [facility] [address] 2019-07-09 2019-07-09 Case Simón, UNIVERSIT 1.2.840.114 [id number] Univers 00:00:00 00:00:00 Management Bryanna R Y HEALTH 350.1.13.10 ity [place] [phone] [facility] [address] 2019-07-08 2019-07-08 Outpatient R [facility] [id number] Univers 14:00:00 14:00:00 ity of [facility] 2019-06-24 2019-06-24 Office Faculty, Vascular Surg UNIVERSIT 1 .2.840.114 [id number] Univers 14:12:23 14:27:23 Visit Simón Bryanna R Y HEALTH 350.1.1 3.10 ity [place] [id number] [address] 2019-06-24 2019-06-24 Outpatient R [facility] [id number] Univers 14:00:00 14:00:00 ity of [facility] 2019-06-18 2019-06-18 Office Faculty, Vascular Surg UNIVERSIT 1 .2.840.114 [id number] Univers 09:06:53 09:21:53 Visit Simón Bryanna R Y HEALTH 350.1.1 3.10 ity of [place] [phone] [address] 2019-06-18 2019-06-18 Outpatient R SIMÓN, [facility] [id number] Univers 09:00:00 09:00:00 BRYANNA ity [facility] 2019-06-16 2019-06-16 Patient Emerita Gutiérrez 1.2.840.114 [id number] Univers 00:00:00 00:00:00 Outreach Tia E Raya 350.1.13.10 [place] [phone] [address] 2019-06-15 2019-06-15 Transition Ashli Lerma 1.2.840.114 [id number] Univers 00:00:00 00:00:00 of Care Raya 350.1.13.10 it y [place] [id number] [address] 2019-06-15 2019-06-15 Patient Emerita Gutiérrez 1.2.840.114 [id number] Univers 00:00:00 00:00:00 Outreach Tia E Raya 350.1.13.10 i [place] [id number] [address] 2019-06-14 2019-06-14 Telephone Winston Prieto UNIVERSIT 1.2.840.114 [id number] Univers 00:00:00 00:00:00 Y HEALTH 350.1.13.10 i ty of [facility] 4.2.7.2.686 Chip biggs [id number] [facility] [address] 2019-06-06 2019-06-12 Inpatient X DIONICIO NJALICIA [facility] [id number] Univers 13:30:57 16:20:00 CAMMIE itroxy [facility] 2019-06-06 2019-06-12 Hospital Kira Leija 1.2.840.1 [id number] Univers 13:30:57 16:20:00 Encounter Cammie Greenberg 350.1.13.10 ity [facility] 4.2.7.2.686 [place] [phone] [facility] [address] [place] Results Test Description Test Time Test Comments Results Result Comments Source POCT GLUCOSE (AUTOMATED) 2020-02-01 22:37:00 Test Item Value Reference Range Interpretation Comme nts POCT GLU (test code = 5346527005) 204 mg/dL 70-110 H Lab Interpretation (test code = 89834-3) Abnormal [facility] GLUCOSE (AUTOMATED)2020-02-01 17:32:00 Test Item Value Reference Range Interpretation Comments POCT GLU (test code = 7328320278) 235 mg/dL 70-110 H Lab Interpretation (test code = Abnormal 24619-1) [facility] GLUCOSE (AUTOMATED)2020-02-01 14:49:00 Test Item Value Reference Range Interpretation Comments POCT GLU (test code = 9823717524) 145 mg/dL 70-110 H Lab Interpretation (test code = Abnormal 46439-3) [facility] WITHOUT [id number] 12:00:00 Test Item Value Reference Range Interpretation Comments WBC (test code = 6690-2) See_Comment [A utomated message] The system 1001 Menus generated this result transmit sapna reference range : 4.20 - 10.70 10*3/?L. The reference range was not used to interpret this result as normal/abnormal . RBC (test code = 789-8) See_Comment L [Au tomated message] The system 1001 Menus generated this result transmit sapna reference range : 4.26 - 5.52 10* 6/?L. The reference r jesus was not used to interpret this result as normal/abnormal . HGB (test code = 718-7) 8.4 g/dL 12.2-16.4 L HCT (test code = 4544-3) 27.3 % 38.4-49.3 L MCH (test code = 785-6) 22.2 pg 26.1-32.7 L MCV (test code = 787-2) 72.0 fL 81.7-95.6 L MCHC (test code = 786-4) 30.8 g/dL 31.2-35 L PLT (test code = 777-3) See_Comment [Au tomated message] The system [employer] generated this result transmit sapna reference range : 150 - 328 10*3/?L. The reference range was not used to interpret this result as normal/abnormal . MPV (test code = 9.7 fL 9.8-13 L 88970-0) RDW-CV (test code = 18.4 % 12.1-15.4 H 788-0) RDW-SD (test code = 47.6 fL 38.5-51.6 98543-7) NRBC x10^3 (test code = <0.01 See_Comment [Au tomated message] 6437107503) The system 1001 Menus generated this result transmit sapna reference range : 10*3/?L. The reference range was not used to interpret this result as normal/abnormal . NRBC/100 WBC (test code See_Comment [Au tomated message] = 4069550303) The system [employer] generated this result transmit sapna reference range : 0.0 - 10.0 /100 WBC s. The reference r jesus was not used to interpret this result as normal/abnormal . IPF % (test code = 2556038652) Lab Interpretation (test Abnormal code = 95908-1) [facility] GLUCOSE (AUTOMATED)2020-02-01 04:13:00 Test Item Value Reference Range Interpretation Comments POCT GLU (test code = 2006941836) 209 mg/dL 70-110 H Lab Interpretation (test code = Abnormal 14246-8) [facility] GLUCOSE (AUTOMATED)2020-01-31 23:11:00 Test Item Value Reference Range Interpretation Comments POCT GLU (test code = 1867914063) 207 mg/dL 70-110 H Lab Interpretation (test code = Abnormal 42213-8) [facility] 23:08:00 Test Item Value Reference Range Interpretation Comments POCT GLU (test code = 2433246806) 195 mg/dL 70-110 H Lab Interpretation (test code = Abnormal 63200-4) [facility] NOW RAPID TESTING)2020-01-31 19:05:00 Test Item Value Reference Range Interpretation Comments SARS-CoV-2 Rapid ID NOW Not Detected Not Detected (test code = 05009-1) AKHIL (test code = AKHIL) ID NOW COVID-19 Assay is an isothermal nucleic acid amplification test intended for the qualitative detection of nucleic acid from SARS-CoV-2 viral RNA in nasopharyngeal (WEB MARKETING ANALYST) specimens. It is used under Emergency Use Authorization (EUA) by FDA. The limit of detection (LOD) of the assay is 125 Genome Equivalents/mL. A positive result is indicative of the presence of SARS-CoV-2 RNA. ?Clinical correlation with patient history and other diagnostic information is necessary to determine patient infection status. A negative (Not Detected) result does not preclude SARS-CoV-2 infection. In patients with clinical symptoms and other tests that are consistent with SARS-CoV-2 infection, negative results should be treated as presumptive negative and a new specimen should be tested with alternative PCR molecular test. Invalid: Please collect a new specimen for repeat patient testing if clinically indicated. Lab Interpretation Normal (test code = 00835-5) [facility] RBC (in units), 1 Units 2020-01-31 18:09:08 Test Item Value Reference Range Interpretation Comments Cross Match Result Compatible (test code = 4409) ISBT Blood Type Code (test code = 223572) Unit Blood Type (test A Pos code = 4410) Unit Number (test [id number] code = 4411) Blood Expiration Date & Time (test code = 499850) Status Information Issued (test code = 4412) Product Red Blood Cells Identification (test code = 4413) Product Code (test Y2407C11 Performed at [facility] code = 4414) Laboratory Services - [facility] Blood [address] [place] [address]32[address]Nnie Free: [phone] A No. [id number] [facility] GLUCOSE (AUTOMATED)2020-01-31 17:21:00 Test Item Value Reference Range Interpretation Comments POCT GLU (test code = 9945777433) 220 mg/dL 70-110 H Lab Interpretation (test code = Abnormal 85782-8) [facility] GLUCOSE (AUTOMATED)2020-01-31 14:39:00 Test Item Value Reference Range Interpretation Comments POCT GLU (test code = 8076920265) 157 mg/dL 70-110 H Lab Interpretation (test code = Abnormal 15728-4) [facility] WITHOUT [id number] 12:06:00 Test Item Value Reference Range Interpretation Comments WBC (test code = 6690-2) See_Comment [A utomated message] The system 1001 Menus generated this result transmit sapna reference range : 4.20 - 10.70 10*3/?L. The reference range was not used to interpret this result as normal/abnormal . RBC (test code = 789-8) See_Comment L [Au tomated message] The system 1001 Menus generated this result transmit sapna reference range : 4.26 - 5.52 10* 6/?L. The reference r jesus was not used to interpret this result as normal/abnormal . HGB (test code = 718-7) 6.9 g/dL 12.2-16.4 L HCT (test code = 4544-3) 23.0 % 38.4-49.3 L MCH (test code = 785-6) 21.6 pg 26.1-32.7 L MCV (test code = 787-2) 71.9 fL 81.7-95.6 L MCHC (test code = 786-4) 30.0 g/dL 31.2-35 L PLT (test code = 777-3) See_Comment [Au tomated message] The system 1001 Menus generated this result transmit sapna reference range : 150 - 328 10*3/?L. The reference range was not used to interpret this result as normal/abnormal . MPV (test code = 10.2 fL 9.8-13 43680-2) RDW-CV (test code = 18.1 % 12.1-15.4 H 788-0) RDW-SD (test code = 46.4 fL 38.5-51.6 71332-1) NRBC x10^3 (test code = <0.01 See_Comment [Au tomated message] 3284202397) The system 1001 Menus generated this result transmit sapna reference range : 10*3/?L. The reference range was not used to interpret this result as normal/abnormal . NRBC/100 WBC (test code See_Comment [Au tomated message] = 9153616698) The system [employer] generated this result transmit sapna reference range : 0.0 - 10.0 /100 WBC s. The reference r jesus was not used to interpret this result as normal/abnormal . IPF % (test code = 6870213197) Lab Interpretation (test Abnormal code = 60421-2) [facility] GLUCOSE (AUTOMATED)2020-01-31 03:51:00 Test Item Value Reference Range Interpretation Comments POCT GLU (test code = 4150297542) 253 mg/dL 70-110 H Lab Interpretation (test code = Abnormal 98790-2) [facility] COVID [id number] 00:31:00COVID DMT InterpretationInterpretation/Recommendations: Tests (PCR) for Active Infection by SARS-CoV-2 Virus: This patient has tested negative for the SARS-CoV-2 virus more than three times with no prior history of a positive result. For approximately two-thirds of patients with a negative test who were tested only once, the patient is truly negative and has not been infected with the SARS-CoV-2 virus. However, for those tested using a nasopharyngeal sample, each time the test is performed, there isan approximately knx-gi-sreps chance that the patient has indeed been infected and the result of theprior test is a false negative. This occurs because the virus is predominantly in the lung and out of reach of the nasopharyngeal swab. Importantly, however, this patient has tested negative more than three times with no prior history of a positive result. Especially if there were minimal or no symptoms of the infection, this makes a false negative result much less likely for this patient, and it is much more likely that the patient has not been infected with the SARS-CoV-2 virus. If the patient becomes progressively more symptomatic, a repeat PCR test should be performed. Tests for IgM and/or IgG Antibodies to SARS-CoV-2 Virus: A. ?A test for IgM antibody to the SARS-CoV-2 virus is likely to be highly informative at this time. IgM antibodies to the SARS-CoV-2 virus identified in a high performing test, usually an GUEVARA or chemiluminescence-based assay, should appear in most patients who are truly infected within approximately a week from the onset of symptoms, and in nearly all patients 2 to 3weeks after symptoms begin. If the high performing IgM test is positive, even if the initial PCR test for active infection was negative, it is highly probable the patient has been infected with the virus at some point. A repeat PCR test to determine if the patient has recovered from the infection would be important to perform if the IgM vpen-HOCM-ZdH-2 antibody test is positive. B. ?A test for IgG antibodies to the SARS-CoV-2 virus was not performed and is also likely to be informative. The sample for the IgG antibody test should be collected 2 or more weeks post onset of symptoms. It is the IgG antibodies that can confer long-term immunity to infectious agents. However, at this time, it is not known if the production of IgG antibodies indicates whether the patient is immune to future infections with the SARS-CoV-2 virus. It is also not known how long IgG antibodies to the SARS-CoV-2 virus persist. C. ?Although it is uncommon, some patients cannot ever mount an antibody response to infectious agents, such as SARS-CoV-2. If there are persistently negative results for IgM and IgG antibodies, this may be the explanation. Int erpretation Result Comments:These interpretation comments are based upon aggregate data pooled from the [facility] medical record including both current and prior COVID-19 related testing results for the following tests offered at our institution:A. Tests for the Identification of SARS-CoV-2 RNA:SARS-CoV-2 PCR assays including [place] Aptima, [place] Fusion, Castanon RealTime, and Iconicfuture Xpert Xpress. SARS-CoV-2 Rapid ID NOW by the ID NOW assay. ? B. Tests for the Identification of SARS-CoV-2 Antibodies: Chemiluminescent immunoassays including Access SARS-CoV-2 IgM (DXI 600), VITROS Afxl-ECCK-QsR-2 IgG (Vitros 5600 and Vitros 3600), and Castanon SARS-CoV-2 IgG (PHOTOCOPYING EQUIPMENT REPAIRER I System). These interpretation comments assume that only the above testing was utilized and that the approved acceptable specimen type(s) were used for a given test. These interpretations are autopopulated into IT'SUGAR based on computerized algorithms matching an interpretation code number to the patient's set of test results. While a clinical pathologist evaluates the combinations for clinical accuracy, clinical correlation is recommended as it may not take into account very remote prior testing. Furthermore, it does not consider testing a patient may have had outside of the [facility] system. Additionally, it should be noted that the c omputerized algorithm treats the results for PCR testing and Rapid ID NOW testing (also PCR) synonymously, and thus, refers to both testing methodologies as PCR tests. Given that the sensitivity of [facility]'s Rapid ID NOW testing platform is analogous to PCR-based methods, for most patients this has no significant implications for clinical decision making. However, if a patient with a negative result forRapid ID NOW continues to have a clinical presentation consistent with COVID-19 infection, negative results should be treated as presumptive negative and a new specimen should be tested with alternative PCR molecular test. If results for COVID-19 infection continue to be negative in the context of a cl inical presentation consistent with a viral respiratory illness, it is possible the patient may havean infection with another respiratory virus, such as influenza, rhinovirus, other coronaviruses thatcause the common cold, etc. Influenza testing and if clinically indicated a respiratory pathogen panel may be beneficial in this setting. [facility] LABORATORY SERVICESCOVID OnxojmpKMEA-VhQ-5 Rapid ID NOW (no units) ? ? Date ? Value ? 01/26/2020 ? Not Detected ? ? ? 12/14/2019 ? Not Detected ? ? ? 12/09/2019 ? Not Detected ? ? ? 12/03/2019 ? Not Detected ? ? ? 09/07/2019 ? Not Detected ? ? ? 08/30/2019 ? Not Detected ? ? ? 08/13/2019 ? Not Detected ? ? ? 08/06/2019 ? Not Detected ? [facility] 2020-01-30 22:28:00 Test Item Value Reference Range Interpretation Comments POCT GLU (test code = 5453702500) 221 mg/dL 70-110 H Lab Interpretation (test code = Abnormal 62500-7) [facility] GLUCOSE (AUTOMATED)2020-01-30 19:28:00 Test Item Value Reference Range Interpretation Comments POCT GLU (test code = 3984525911) 227 mg/dL 70-110 H Lab Interpretation (test code = Abnormal 84303-3) [facility] GLUCOSE (AUTOMATED)2020-01-30 15:33:00 Test Item Value Reference Range Interpretation Comments POCT GLU (test code = 8582133100) 132 mg/dL 70-110 H Lab Interpretation (test code = Abnormal 43694-1) [facility] WITHOUT [id number] 12:17:00 Test Item Value Reference Range Interpretation Comments WBC (test code = 6690-2) See_Comment [A utomated message] The system 1001 Men[employer] generated this result transmit sapna reference range : 4.20 - 10.70 10*3/?L. The reference range was not used to interpret this result as normal/abnormal . RBC (test code = 789-8) See_Comment L [Au tomated message] The system 100[employer] generated this result transmit sapna reference range : 4.26 - 5.52 10* 6/?L. The reference r jesus was not used to interpret this result as normal/abnormal . HGB (test code = 718-7) 7.3 g/dL 12.2-16.4 L HCT (test code = 4544-3) 25.0 % 38.4-49.3 L MCH (test code = 785-6) 20.9 pg 26.1-32.7 L MCV (test code = 787-2) 71.6 fL 81.7-95.6 L MCHC (test code = 786-4) 29.2 g/dL 31.2-35 L PLT (test code = 777-3) See_Comment [Au tomated message] The system 100[employer] generated this result transmit sapna reference range : 150 - 328 10*3/?L. The reference range was not used to interpret this result as normal/abnormal . MPV (test code = 10.4 fL 9.8-13 02515-3) RDW-CV (test code = 17.9 % 12.1-15.4 H 788-0) RDW-SD (test code = 46.0 fL 38.5-51.6 56357-4) NRBC x10^3 (test code = <0.01 See_Comment [Au tomated message] [id number]) The system 100[employer] generated this result transmit sapna reference range : 10*3/?L. The reference range was not used to interpret this result as normal/abnormal . NRBC/100 WBC (test code See_Comment [Au tomated message] = 0149016260) The system [employer] generated this result transmit sapna reference range : 0.0 - 10.0 /100 WBC s. The reference r jesus was not used to interpret this result as normal/abnormal . IPF % (test code = 5022825115) Lab Interpretation (test Abnormal code = 60251-9) [facility] GLUCOSE (AUTOMATED)2020-01-30 03:37:00 Test Item Value Reference Range Interpretation Comments POCT GLU (test code = 9605741324) 200 mg/dL 70-110 H Lab Interpretation (test code = Abnormal 30645-5) [facility] GLUCOSE (AUTOMATED)2020-01-30 00:28:00 Test Item Value Reference Range Interpretation Comments POCT GLU (test code = 1210293691) 78 mg/dL 70-110 Lab Interpretation (test code = Normal 05265-5) [facility] GLUCOSE (AUTOMATED)2020-01-29 20:08:00 Test Item Value Reference Range Interpretation Comments POCT GLU (test code = 3970492034) 288 mg/dL 70-110 H Lab Interpretation (test code = Abnormal 05161-5) [facility] WITHOUT [id number] 18:01:00 Test Item Value Reference Range Interpretation Comments WBC (test code = 6690-2) See_Comment [A utomated message] The system [employer] generated this result transmit sapna reference range : 4.20 - 10.70 10*3/?L. The reference range was not used to interpret this result as normal/abnormal . RBC (test code = 789-8) See_Comment L [Au tomated message] The system [employer] generated this result transmit sapna reference range : 4.26 - 5.52 10* 6/?L. The reference r jesus was not used to interpret this result as normal/abnormal . HGB (test code = 718-7) 7.0 g/dL 12.2-16.4 L HCT (test code = 4544-3) 23.6 % 38.4-49.3 L MCH (test code = 785-6) 21.7 pg 26.1-32.7 L MCV (test code = 787-2) 73.3 fL 81.7-95.6 L MCHC (test code = 786-4) 29.7 g/dL 31.2-35 L PLT (test code = 777-3) See_Comment [Au tomated message] The system [facility] generated this result transmit sapna reference range : 150 - 328 10*3/?L. The reference range was not used to interpret this result as normal/abnormal . MPV (test code = 10.2 fL 9.8-13 29539-5) RDW-CV (test code = 17.8 % 12.1-15.4 H 788-0) RDW-SD (test code = 47.1 fL 38.5-51.6 31057-3) NRBC x10^3 (test code = <0.01 See_Comment [Au tomated message] 2640909020) The system [employer] generated this result transmit sapna reference range : 10*3/?L. The reference range was not used to interpret this result as normal/abnormal . NRBC/100 WBC (test code See_Comment [Au tomated message] = 6174617250) The system [facility] generated this result transmit sapna reference range : 0.0 - 10.0 /100 WBC s. The reference r jesus was not used to interpret this result as normal/abnormal . IPF % (test code = 1118943091) Lab Interpretation (test Abnormal code = 38509-7) [facility] GLUCOSE (AUTOMATED)2020-01-29 15:54:00 Test Item Value Reference Range Interpretation Comments POCT GLU (test code = 3008714654) 90 mg/dL 70-110 Lab Interpretation (test code = Normal 54828-4) [facility]/[id number] 12:21:00 Test Item Value Reference Range Interpretation Comments PROTIME PATIENT (test See_Comment [Auto mated message] code = 5964-2) The system [employer] ich generated this result transmitted ref erence range: 10.1 - 1 2.6 Seconds. The re ference range was not u sed to interpret this result as normal/abnor mal. INR (test code = 6301-6) Nor mal INR <1.1; Warfarin Therap eutic range 2.0 to 3. 0 or 2.5 to 3.5, dep ending upon the indica tions. Lab Interpretation (test Normal code = 30678-2) [facility] GLUCOSE (AUTOMATED)2020-01-29 03:06:00 Test Item Value Reference Range Interpretation Comments POCT GLU (test code = 6265780741) 100 mg/dL 70-110 Lab Interpretation (test code = Normal 00979-7) [facility] (for use with Heparin Drip)2020-01-28 19:26:00 Test Item Value Reference Range Interpretation Comments APTT Patient (test code See_Comment H [Au tomated message] = 3173-2) The system [employer] h generated this result transmitted ref erence range: 26 - 36 Seconds. The reference range was not used to int erpret this result as normal/abnormal . Lab Interpretation (test Abnormal code = 86589-2) [facility] GLUCOSE (AUTOMATED)2020-01-28 18:43:00 Test Item Value Reference Range Interpretation Comments POCT GLU (test code = 3002482535) 86 mg/dL 70-110 Lab Interpretation (test code = Normal 63763-0) [facility] TexasType and Screen - ONCE [id number] 17:44:27 Test Item Value Reference Range Interpretation Comments ABO & RH (test code A POSITIVE Performe d at [facility] = 20) Laboratory Serv [facility] [address] [place] [address]Vhsf Free: [phone] A No. [id number] IAT (test code = Negative Performed a t [facility] 1185) Laboratory Serv [facility] [id number] Free: [phone] A No. [id number] [facility] GLUCOSE (AUTOMATED)2020-01-28 14:40:00 Test Item Value Reference Range Interpretation Comments POCT GLU (test code = 9489146109) 94 mg/dL 70-110 Lab Interpretation (test code = Normal 14030-4) [facility]for use with Heparin Drip)2020-01-28 11:25:00 Test Item Value Reference Range Interpretation Comments APTT Patient (test code >150 See_Comment HH [Au tomated message] = 3173-2) The system 1001 Men[employer] generated this result transmitted ref erence range: 26 - 36 Seconds. The reference range was not used to int erpret this result as normal/abnormal . Lab Interpretation (test Abnormal code = 80984-6) [facility] TexasProthrombin Time/[id number] 11:16:00 Test Item Value Reference Range Interpretation Comments PROTIME PATIENT (test See_Comment [Auto mated message] code = 5964-2) The system [employer] generated this result transmitted ref erence range: 10.1 - 1 2.6 Seconds. The re ference range was not u sed to interpret this result as normal/abnor mal. INR (test code = 6301-6) Nor mal INR <1.1; Warfarin Therap eutic range 2.0 to 3. 0 or 2.5 to 3.5, dep ending upon the indica tions. Lab Interpretation (test Normal code = 18393-6) [facility] GLUCOSE (AUTOMATED)2020-01-28 03:58:00 Test Item Value Reference Range Interpretation Comments POCT GLU (test code = 7943614626) 132 mg/dL 70-110 H Lab Interpretation (test code = Abnormal 85808-4) [facility] (for use with Heparin Drip)2020-01-28 00:43:00 Test Item Value Reference Range Interpretation Comments APTT Patient (test code See_Comment H [Au tomated message] = 3173-2) The system 1001 [employer] generated this result transmitted ref erence range: 26 - 36 Seconds. The reference range was not used to int erpret this result as normal/abnormal . Lab Interpretation (test Abnormal code = 62746-7) [facility] GLUCOSE (AUTOMATED)2020-01-27 23:43:00 Test Item Value Reference Range Interpretation Comments POCT GLU (test code = 0944028935) 138 mg/dL 70-110 H Lab Interpretation (test code = Abnormal 73553-6) [facility] GLUCOSE (AUTOMATED)2020-01-27 20:15:00 Test Item Value Reference Range Interpretation Comments POCT GLU (test code = 0560507540) 106 mg/dL 70-110 Lab Interpretation (test code = Normal 13650-8) [facility] (for use with Heparin Drip)2020-01-27 15:04:00 Test Item Value Reference Range Interpretation Comments APTT Patient (test code See_Comment HH [Au tomated message] = 3173-2) The system 100[employer] generated this result transmitted ref erence range: 26 - 36 Seconds. The reference range was not used to int erpret this result as normal/abnormal . Lab Interpretation (test Abnormal code = 60639-4) [facility] GLUCOSE (AUTOMATED)2020-01-27 14:16:00 Test Item Value Reference Range Interpretation Comments POCT GLU (test code = 9484689179) 97 mg/dL 70-110 Lab Interpretation (test code = Normal 85458-3) [facility] (NA, K, CL, CO2, GLUCOSE, BUN, CREATININE, CA)2020-01-27 12:09:00 Test Item Value Reference Range Interpretation Comments NA (test code = 139 mmol/L 135-145 9098599863) K (test code = 4.1 mmol/L 3.5-5 0129248806) CL (test code = 108 mmol/L 98-108 1095421960) CO2 TOTAL (test code = 25 mmol/L 23-31 7536743893) AGAP (test code = 2-16 0698005801) BUN (test code = 21 mg/dL 7-23 7298110989) GLUCOSE (test code = 87 mg/dL 70-110 7193132954) CREATININE (test code = 0.91 mg/dL 0.6-1.25 1979326736) CALCIUM (test code = 7.7 mg/dL 8.6-10.6 L 6136794805) eGFR Calculation mL/min/1.73m2 (Non-) (test code = 7854539978) eGFR Calculation mL/min/1.73m2 () (test code = 5760499846) AKHIL (test code = AKHIL) Association of Glomerular Filtration Rate (GFR) and Staging of Kidney Disease* + --+ --+ ------+| GFR (mL/min/1.73 m2) ?| With Kidney Damage ?| ?Without Kidney Damage+ --------+ --------+ +| ?>90 ?| ?Stage one ?| ? Normal ?+ ---+ ---+ -------+| ?60-89 ?| ?Stage two ?| ? Decreased GFR ? + --+ --+ ------+| ?30-59 ?| ?Stage three ?| ? Stage three ? + --+ --+ ------+| ?15-29 ?| ?Stage four ? | ? Stage four ?+ ---+ ---+ -------+| ?<15 (or dialysis) ? ?| ?Stage five ? | ? Stage five ?+ ---+ ---+ -------+ *Each stage assumes the associated GFR level has been in effect for at least three months. ?Stages 1 to 5, with or without kidney disease, indicate chronic kidney disease. Notes: Determination of stages one and two (with eGFR >59mL/min/1.73 m2) requires estimation of kidney damage for at least three months as defined by structural or functional abnormalities of the kidney, manifested by either:Pathological abnormalities or Markers of kidney damage (including abnormalities in the composition of the blood or urine or abnormalities in imaging tests). Lab Interpretation Abnormal (test code = 32052-8) [facility] TexasMagnesium [id number] 12:09:00 Test Item Value Reference Range Interpretation Comments MAGNESIUM (test code = 0964559857) 2.3 mg/dL 1.7-2.4 Lab Interpretation (test code = Normal 46061-0) [facility] with [id number] 11:22:00 Test Item Value Reference Range Interpretation Comments WBC (test code = See_Comment [Automated 6690-2) message] The sy stem which generated this result transmitted reference range : 4.20 - 10.70 10*3/?L. The reference range was not used to interpret this result as normal/abnormal . RBC (test code = See_Comment L [Automated 789-8) message] The sy stem which generated this result transmitted reference range : 4.26 - 5.52 10*6/?L. The reference range was not used to interpret this result as normal/abnormal . HGB (test code = 8.1 g/dL 12.2-16.4 L 718-7) HCT (test code = 27.1 % 38.4-49.3 L 4544-3) MCV (test code = 71.9 fL 81.7-95.6 L 787-2) MCH (test code = 21.5 pg 26.1-32.7 L 785-6) MCHC (test code = 29.9 g/dL 31.2-35 L 786-4) RDW-SD (test code = 46.4 fL 38.5-51.6 58174-6) RDW-CV (test code = 17.8 % 12.1-15.4 H 788-0) PLT (test code = See_Comment [Automated 777-3) message] The sy stem which generated this result transmitted reference range : 150 - 328 10*3/ ?L. The reference r jesus was not used to interpret this result as normal/abnormal . MPV (test code = 10.5 fL 9.8-13 90561-7) NRBC/100 WBC (test See_Comment [Automat ed code = 2905635382) message] The system which generated this result transmitted reference range : 0.0 - 10.0 /100 WBCs. The refer ence range was not u sed to interpret th is result as normal/abnormal . NRBC x10^3 (test code <0.01 See_Comment [Auto mated = 4168490629) message] The s ystem which generated this result transmitted reference range : 10*3/?L. The reference range was not used to interpret this result as normal/abnormal . GRAN MAT (NEUT) % 54.2 % (test code = 770-8) IMM GRAN % (test code 0.30 % = 3047212510) LYMPH % (test code = 31.4 % 736-9) MONO % (test code = 11.1 % 5905-5) EOS % (test code = 2.7 % 713-8) BASO % (test code = 0.3 % 706-2) GRAN MAT x10^3(ANC) 3.60 10*3/uL 1.99-6.95 (test code = 4159784682) IMM GRAN x10^3 (test <0.03 0-0.06 code = 9327212918) LYMPH x10^3 (test code 2.09 10*3/uL 1.09-3.23 = 731-0) MONO x10^3 (test code 0.74 10*3/uL 0.36-1.02 = 742-7) EOS x10^3 (test code = 0.18 10*3/uL 0.06-0.53 711-2) BASO x10^3 (test code <0.03 0.01-0.09 = 704-7) Lab Interpretation Abnormal (test code = 82367-9) [facility] (for use with Heparin Drip)2020-01-27 07:29:00 Test Item Value Reference Range Interpretation Comments APTT Patient (test code See_Comment HH [Au tomated message] = 3173-2) The system 1001 Men[employer] generated this result transmitted ref erence range: 26 - 36 Seconds. The reference range was not used to int erpret this result as normal/abnormal . Lab Interpretation (test Abnormal code = 43714-0) [facility]2020-01-27 06:27:00 Test Item Value Reference Range Interpretation Comments POCT GLU (test code = 2105094967) 157 mg/dL 70-110 H Lab Interpretation (test code = Abnormal 89260-8) [facility]OVID[facility] (ID NOW RAPID TESTING)2020-01-27 02:20:00 Test Item Value Reference Range Interpretation Comments SARS-CoV-2 Rapid ID NOW Not Detected Not Detected (test code = 31550-8) AKHIL (test code = AKHLI) ID NOW COVID-19 Assay is an isothermal nucleic acid amplification test intended for the qualitative detection of nucleic acid from SARS-CoV-2 viral RNA in nasopharyngeal (WEB MARKETING ANALYST) specimens. It is used under Emergency Use Authorization (EUA) by FDA. The limit of detection (LOD) of the assay is 125 Genome Equivalents/mL. A positive result is indicative of the presence of SARS-CoV-2 RNA. ?Clinical correlation with patient history and other diagnostic information is necessary to determine patient infection status. A negative (Not Detected) result does not preclude SARS-CoV-2 infection. In patients with clinical symptoms and other tests that are consistent with SARS-CoV-2 infection, negative results should be treated as presumptive negative and a new specimen should be tested with alternative PCR molecular test. Invalid: Please collect a new specimen for repeat patient testing if clinically indicated. Lab Interpretation Normal (test code = 81662-0) [facility]2020-01-27 00:32:00 Test Item Value Reference Range Interpretation Comments POCT GLU (test code = 9183364918) 95 mg/dL 70-110 Lab Interpretation (test code = Normal 52738-4) [facility] TexasaPTT2020-11-04 21:51:00 Test Item Value Reference Range Interpretation Comments APTT Patient (test code = See_Comment [ Automated message] 3173-2) The system [employer] generated this result transmitted ref erence range: 26 - 36 Seconds. The re ference range was not u sed to interpret this result as normal/abnor mal. Lab Interpretation (test Normal code = 56392-2) [facility] TexasProthrombin Time (PT) / [id number] 21:51:00 Test Item Value Reference Range Interpretation Comments PROTIME PATIENT (test See_Comment [Auto mated message] code = 5964-2) The system [employer] generated this result transmitted ref erence range: 10.1 - 1 2.6 Seconds. The re ference range was not u sed to interpret this result as normal/abnor mal. INR (test code = 6301-6) Nor mal INR <1.1; Warfarin Therap eutic range 2.0 to 3. 0 or 2.5 to 3.5, dep ending upon the indica tions. Lab Interpretation (test Normal code = 10330-3) [facility] METABOLIC PANEL (NA, K, CL, CO2, GLUCOSE, BUN, CREATININE, CA)2020-01-26 18:47:00 Test Item Value Reference Range Interpretation Comments NA (test code = 138 mmol/L 135-145 4590213648) K (test code = 4.6 mmol/L 3.5-5 6881921150) CL (test code = 102 mmol/L 98-108 1364718616) CO2 TOTAL (test code = 27 mmol/L 23-31 9004499295) AGAP (test code = 2-16 7830490586) BUN (test code = 23 mg/dL 7-23 3232274905) GLUCOSE (test code = 196 mg/dL 70-110 H 8275648374) CREATININE (test code = 1.12 mg/dL 0.6-1.25 4905079483) CALCIUM (test code = 8.2 mg/dL 8.6-10.6 L 5467686741) eGFR Calculation mL/min/1.73m2 (Non-) (test code = 3791708150) eGFR Calculation mL/min/1.73m2 () (test code = 0912942273) AKHIL (test code = AKHIL) Association of Glomerular Filtration Rate (GFR) and Staging of Kidney Disease* + --+ --+ ------+| GFR (mL/min/1.73 m2) ?| With Kidney Damage ?| ?Without Kidney Damage+ --------+ --------+ +| ?>90 ?| ?Stage one ?| ? Normal ?+ ---+ ---+ -------+| ?60-89 ?| ?Stage two ?| ? Decreased GFR ? + --+ --+ ------+| ?30-59 ?| ?Stage three ?| ? Stage three ? + --+ --+ ------+| ?15-29 ?| ?Stage four ? | ? Stage four ?+ ---+ ---+ -------+| ?<15 (or dialysis) ? ?| ?Stage five ? | ? Stage five ?+ ---+ ---+ -------+ *Each stage assumes the associated GFR level has been in effect for at least three months. ?Stages 1 to 5, with or without kidney disease, indicate chronic kidney disease. Notes: Determination of stages one and two (with eGFR >59mL/min/1.73 m2) requires estimation of kidney damage for at least three months as defined by structural or functional abnormalities of the kidney, manifested by either:Pathological abnormalities or Markers of kidney damage (including abnormalities in the composition of the blood or urine or abnormalities in imaging tests). Lab Interpretation Abnormal (test code = 99115-6) [facility] WITH [id number] 18:39:00 Test Item Value Reference Range Interpretation Comments WBC (test code = See_Comment [Automated 6690-2) message] The sy stem which generated this result transmitted reference range : 4.20 - 10.70 10*3/?L. The reference range was not used to interpret this result as normal/abnormal . RBC (test code = See_Comment L [Automated 789-8) message] The sy stem which generated this result transmitted reference range : 4.26 - 5.52 10*6/?L. The reference range was not used to interpret this result as normal/abnormal . HGB (test code = 9.3 g/dL 12.2-16.4 L 718-7) HCT (test code = 30.9 % 38.4-49.3 L 4544-3) MCV (test code = 72.7 fL 81.7-95.6 L 787-2) MCH (test code = 21.9 pg 26.1-32.7 L 785-6) MCHC (test code = 30.1 g/dL 31.2-35 L 786-4) RDW-SD (test code = 47.6 fL 38.5-51.6 99209-8) RDW-CV (test code = 18.1 % 12.1-15.4 H 788-0) PLT (test code = See_Comment [Automated 777-3) message] The sy stem which generated this result transmitted reference range : 150 - 328 10*3/ ?L. The reference r jesus was not used to interpret this result as normal/abnormal . MPV (test code = 10.2 fL 9.8-13 60777-6) NRBC/100 WBC (test See_Comment [Automat ed code = 8916005926) message] The system which generated this result transmitted reference range : 0.0 - 10.0 /100 WBCs. The refer ence range was not u sed to interpret th is result as normal/abnormal . NRBC x10^3 (test code <0.01 See_Comment [Auto mated = 7400145473) message] The s ystem which generated this result transmitted reference range : 10*3/?L. The reference range was not used to interpret this result as normal/abnormal . GRAN MAT (NEUT) % 68.7 % (test code = 770-8) IMM GRAN % (test code 0.50 % = 1243204969) LYMPH % (test code = 19.2 % 736-9) MONO % (test code = 10.1 % 5905-5) EOS % (test code = 1.1 % 713-8) BASO % (test code = 0.4 % 706-2) GRAN MAT x10^3(ANC) 5.44 10*3/uL 1.99-6.95 (test code = 4574455497) IMM GRAN x10^3 (test 0.04 10*3/uL 0-0.06 code = 6293453317) LYMPH x10^3 (test code 1.52 10*3/uL 1.09-3.23 = 731-0) MONO x10^3 (test code 0.80 10*3/uL 0.36-1.02 = 742-7) EOS x10^3 (test code = 0.09 10*3/uL 0.06-0.53 711-2) BASO x10^3 (test code 0.03 10*3/uL 0.01-0.09 = 704-7) Lab Interpretation Abnormal (test code = 31905-8) [facility] [id number] 18:37:00 Test Item Value Reference Range Interpretation Comments LACTIC ACID (test code = 2.35 mmol/L QUE S 1348709328) [facility] GLUCOSE (AUTOMATED)2019-12-21 21:47:00 Test Item Value Reference Range Interpretation Comments POCT GLU (test code = 9893979324) 163 mg/dL 70-110 H Lab Interpretation (test code = Abnormal 70086-2) [facility] GLUCOSE (AUTOMATED)2019-12-21 16:58:00 Test Item Value Reference Range Interpretation Comments POCT GLU (test code = 7173014570) 202 mg/dL 70-110 H Lab Interpretation (test code = Abnormal 93414-3) [facility] 13:14:00 Test Item Value Reference Range Interpretation Comments POCT GLU (test code = 7698496809) 147 mg/dL 70-110 H Lab Interpretation (test code = Abnormal 29075-8) [facility] METABOLIC PANEL (NA, K, CL, CO2, GLUCOSE, BUN, CREATININE, CA)2019-12-21 12:12:00 Test Item Value Reference Range Interpretation Comments NA (test code = 138 mmol/L 135-145 3021213483) K (test code = 4.0 mmol/L 3.5-5 3078744184) CL (test code = 104 mmol/L 98-108 0699704837) CO2 TOTAL (test code = 26 mmol/L 23-31 3070134262) AGAP (test code = 2-16 3901437059) BUN (test code = 17 mg/dL 7-23 4373732397) GLUCOSE (test code = 128 mg/dL 70-110 H 7891867582) CREATININE (test code = 1.00 mg/dL 0.6-1.25 0717578677) CALCIUM (test code = 7.9 mg/dL 8.6-10.6 L 2810231456) eGFR Calculation mL/min/1.73m2 (Non-) (test code = 1168120114) eGFR Calculation mL/min/1.73m2 () (test code = 4279178586) AKIHL (test code = AKHIL) Association of Glomerular Filtration Rate (GFR) and Staging of Kidney Disease* + --+ --+ ------+| GFR (mL/min/1.73 m2) ?| With Kidney Damage ?| ?Without Kidney Damage+ --------+ --------+ +| ?>90 ?| ?Stage one ?| ? Normal ?+ ---+ ---+ -------+| ?60-89 ?| ?Stage two ?| ? Decreased GFR ? + --+ --+ ------+| ?30-59 ?| ?Stage three ?| ? Stage three ? + --+ --+ ------+| ?15-29 ?| ?Stage four ? | ? Stage four ?+ ---+ ---+ -------+| ?<15 (or dialysis) ? ?| ?Stage five ? | ? Stage five ?+ ---+ ---+ -------+ *Each stage assumes the associated GFR level has been in effect for at least three months. ?Stages 1 to 5, with or without kidney disease, indicate chronic kidney disease. Notes: Determination of stages one and two (with eGFR >59mL/min/1.73 m2) requires estimation of kidney damage for at least three months as defined by structural or functional abnormalities of the kidney, manifested by either:Pathological abnormalities or Markers of kidney damage (including abnormalities in the composition of the blood or urine or abnormalities in imaging tests). Lab Interpretation Abnormal (test code = 33252-1) [facility] WITH [id number] 11:55:00 Test Item Value Reference Range Interpretation Comments WBC (test code = See_Comment [Automated 7690-2) message] The sy stem which generated this result transmitted reference range : 4.20 - 10.70 10*3/?L. The reference range was not used to interpret this result as normal/abnormal . RBC (test code = See_Comment L [Automated 789-8) message] The sy stem which generated this result transmitted reference range : 4.26 - 5.52 10*6/?L. The reference range was not used to interpret this result as normal/abnormal . HGB (test code = 8.1 g/dL 12.2-16.4 L 718-7) HCT (test code = 27.5 % 38.4-49.3 L 4544-3) MCV (test code = 77.0 fL 81.7-95.6 L 787-2) MCH (test code = 22.7 pg 26.1-32.7 L 785-6) MCHC (test code = 29.5 g/dL 31.2-35 L 786-4) RDW-SD (test code = 51.5 fL 38.5-51.6 89861-2) RDW-CV (test code = 18.5 % 12.1-15.4 H 788-0) PLT (test code = See_Comment [Automated 777-3) message] The sy stem which generated this result transmitted reference range : 150 - 328 10*3/ ?L. The reference r jesus was not used to interpret this result as normal/abnormal . MPV (test code = 9.5 fL 9.8-13 L 37707-2) NRBC/100 WBC (test See_Comment [Automat ed code = 3083948419) message] The system which generated this result transmitted reference range : 0.0 - 10.0 /100 WBCs. The refer ence range was not u sed to interpret th is result as normal/abnormal . NRBC x10^3 (test code <0.01 See_Comment [Auto mated = 6744828028) message] The s ystem which generated this result transmitted reference range : 10*3/?L. The reference range was not used to interpret this result as normal/abnormal . GRAN MAT (NEUT) % 58.5 % (test code = 770-8) IMM GRAN % (test code 1.50 % = 8924265291) LYMPH % (test code = 25.7 % 736-9) MONO % (test code = 10.2 % 5905-5) EOS % (test code = 3.6 % 713-8) BASO % (test code = 0.5 % 706-2) GRAN MAT x10^3(ANC) 4.36 10*3/uL 1.99-6.95 (test code = 3701837225) IMM GRAN x10^3 (test 0.11 10*3/uL 0-0.06 H code = 0178242890) LYMPH x10^3 (test code 1.92 10*3/uL 1.09-3.23 = 731-0) MONO x10^3 (test code 0.76 10*3/uL 0.36-1.02 = 742-7) EOS x10^3 (test code = 0.27 10*3/uL 0.06-0.53 711-2) BASO x10^3 (test code 0.04 10*3/uL 0.01-0.09 = 704-7) Lab Interpretation Abnormal (test code = 04722-8) [facility] 03:08:00 Test Item Value Reference Range Interpretation Comments POCT GLU (test code = 5292626815) 139 mg/dL 70-110 H Lab Interpretation (test code = Abnormal 82178-5) [facility] GLUCOSE (AUTOMATED)2019-12-20 22:36:00 Test Item Value Reference Range Interpretation Comments POCT GLU (test code = 6029751148) 172 mg/dL 70-110 H Lab Interpretation (test code = Abnormal 01971-6) [facility]2019-12-20 19:59:28 These images do not require a Radiology diagnostic report.[facility] GLUCOSE (AUTOMATED)2019-12-20 17:08:00 Test Item Value Reference Range Interpretation Comments POCT GLU (test code = 4800330883) 257 mg/dL 70-110 H Lab Interpretation (test code = Abnormal 98113-3) [facility] (NA, K, CL, CO2, GLUCOSE, BUN, CREATININE, CA)2019-12-20 11:29:00 Test Item Value Reference Range Interpretation Comments NA (test code = 136 mmol/L 135-145 0272893962) K (test code = 3.9 mmol/L 3.5-5 6844984419) CL (test code = 101 mmol/L 98-108 8378336261) CO2 TOTAL (test code = 28 mmol/L 23-31 6937249927) AGAP (test code = 2-16 9358008653) BUN (test code = 15 mg/dL 7-23 1725255332) GLUCOSE (test code = 180 mg/dL 70-110 H 7644701051) CREATININE (test code = 1.07 mg/dL 0.6-1.25 0314051082) CALCIUM (test code = 7.8 mg/dL 8.6-10.6 L 0494594344) eGFR Calculation mL/min/1.73m2 (Non-) (test code = 5066336369) eGFR Calculation mL/min/1.73m2 () (test code = 4486774210) AKHIL (test code = AKHIL) Association of Glomerular Filtration Rate (GFR) and Staging of Kidney Disease* + --+ --+ ------+| GFR (mL/min/1.73 m2) ?| With Kidney Damage ?| ?Without Kidney Damage+ --------+ --------+ +| ?>90 ?| ?Stage one ?| ? Normal ?+ ---+ ---+ -------+| ?60-89 ?| ?Stage two ?| ? Decreased GFR ? + --+ --+ ------+| ?30-59 ?| ?Stage three ?| ? Stage three ? + --+ --+ ------+| ?15-29 ?| ?Stage four ? | ? Stage four ?+ ---+ ---+ -------+| ?<15 (or dialysis) ? ?| ?Stage five ? | ? Stage five ?+ ---+ ---+ -------+ *Each stage assumes the associated GFR level has been in effect for at least three months. ?Stages 1 to 5, with or without kidney disease, indicate chronic kidney disease. Notes: Determination of stages one and two (with eGFR >59mL/min/1.73 m2) requires estimation of kidney damage for at least three months as defined by structural or functional abnormalities of the kidney, manifested by either:Pathological abnormalities or Markers of kidney damage (including abnormalities in the composition of the blood or urine or abnormalities in imaging tests). Lab Interpretation Abnormal (test code = 53218-4) [facility] WITH [id number] 10:56:00 Test Item Value Reference Range Interpretation Comments WBC (test code = See_Comment [Automated 9189-2) message] The sy stem which generated this result transmitted reference range : 4.20 - 10.70 10*3/?L. The reference range was not used to interpret this result as normal/abnormal . RBC (test code = See_Comment L [Automated 519-8) message] The sy stem which generated this result transmitted reference range : 4.26 - 5.52 10*6/?L. The reference range was not used to interpret this result as normal/abnormal . HGB (test code = 8.3 g/dL 12.2-16.4 L 718-7) HCT (test code = 27.7 % 38.4-49.3 L 4544-3) MCV (test code = 76.5 fL 81.7-95.6 L 787-2) MCH (test code = 22.9 pg 26.1-32.7 L 785-6) MCHC (test code = 30.0 g/dL 31.2-35 L 786-4) RDW-SD (test code = 50.8 fL 38.5-51.6 62985-3) RDW-CV (test code = 18.2 % 12.1-15.4 H 788-0) PLT (test code = See_Comment [Automated 777-3) message] The sy stem which generated this result transmitted reference range : 150 - 328 10*3/ ?L. The reference r jesus was not used to interpret this result as normal/abnormal . MPV (test code = 9.6 fL 9.8-13 L 99635-1) NRBC/100 WBC (test See_Comment [Automat ed code = 6586684536) message] The system which generated this result transmitted reference range : 0.0 - 10.0 /100 WBCs. The refer ence range was not u sed to interpret th is result as normal/abnormal . NRBC x10^3 (test code <0.01 See_Comment [Auto mated = 3191976175) message] The s ystem which generated this result transmitted reference range : 10*3/?L. The reference range was not used to interpret this result as normal/abnormal . GRAN MAT (NEUT) % 68.2 % (test code = 770-8) IMM GRAN % (test code 1.60 % = 7198480521) LYMPH % (test code = 16.1 % 736-9) MONO % (test code = 10.0 % 5905-5) EOS % (test code = 3.8 % 713-8) BASO % (test code = 0.3 % 706-2) GRAN MAT x10^3(ANC) 6.17 10*3/uL 1.99-6.95 (test code = 8729490701) IMM GRAN x10^3 (test 0.14 10*3/uL 0-0.06 H code = 0831628705) LYMPH x10^3 (test code 1.45 10*3/uL 1.09-3.23 = 731-0) MONO x10^3 (test code 0.90 10*3/uL 0.36-1.02 = 742-7) EOS x10^3 (test code = 0.34 10*3/uL 0.06-0.53 711-2) BASO x10^3 (test code 0.03 10*3/uL 0.01-0.09 = 704-7) Lab Interpretation Abnormal (test code = 60264-4) [facility] GLUCOSE (AUTOMATED)2019-12-20 01:29:00 Test Item Value Reference Range Interpretation Comments POCT GLU (test code = 1297747883) 244 mg/dL 70-110 H Lab Interpretation (test code = Abnormal 55819-1) [facility] GLUCOSE (AUTOMATED)2019-12-19 22:33:00 Test Item Value Reference Range Interpretation Comments POCT GLU (test code = 7101862572) 198 mg/dL 70-110 H Lab Interpretation (test code = Abnormal 44986-4) [facility] GLUCOSE (AUTOMATED)2019-12-19 17:36:00 Test Item Value Reference Range Interpretation Comments POCT GLU (test code = 9521559252) 226 mg/dL 70-110 H Lab Interpretation (test code = Abnormal 41046-9) [facility] GLUCOSE (AUTOMATED)2019-12-19 14:00:00 Test Item Value Reference Range Interpretation Comments POCT GLU (test code = 6034042497) 204 mg/dL 70-110 H Lab Interpretation (test code = Abnormal 84547-1) [facility] METABOLIC PANEL (NA, K, CL, CO2, GLUCOSE, BUN, CREATININE, CA)2019-12-19 11:21:00 Test Item Value Reference Range Interpretation Comments NA (test code = 136 mmol/L 135-145 5570228535) K (test code = 3.7 mmol/L 3.5-5 2396018364) CL (test code = 104 mmol/L 98-108 1425641234) CO2 TOTAL (test code = 25 mmol/L 23-31 3126105448) AGAP (test code = 2-16 5997028642) BUN (test code = 13 mg/dL 7-23 6885329314) GLUCOSE (test code = 183 mg/dL 70-110 H 4434205400) CREATININE (test code = 0.96 mg/dL 0.6-1.25 1515812102) CALCIUM (test code = 7.6 mg/dL 8.6-10.6 L 8543714645) eGFR Calculation mL/min/1.73m2 (Non-) (test code = 7659082058) eGFR Calculation mL/min/1.73m2 () (test code = 0266793973) AKHIL (test code = AKHIL) Association of Glomerular Filtration Rate (GFR) and Staging of Kidney Disease* + --+ --+ ------+| GFR (mL/min/1.73 m2) ?| With Kidney Damage ?| ?Without Kidney Damage+ --------+ --------+ +| ?>90 ?| ?Stage one ?| ? Normal ?+ ---+ ---+ -------+| ?60-89 ?| ?Stage two ?| ? Decreased GFR ? + --+ --+ ------+| ?30-59 ?| ?Stage three ?| ? Stage three ? + --+ --+ ------+| ?15-29 ?| ?Stage four ? | ? Stage four ?+ ---+ ---+ -------+| ?<15 (or dialysis) ? ?| ?Stage five ? | ? Stage five ?+ ---+ ---+ -------+ *Each stage assumes the associated GFR level has been in effect for at least three months. ?Stages 1 to 5, with or without kidney disease, indicate chronic kidney disease. Notes: Determination of stages one and two (with eGFR >59mL/min/1.73 m2) requires estimation of kidney damage for at least three months as defined by structural or functional abnormalities of the kidney, manifested by either:Pathological abnormalities or Markers of kidney damage (including abnormalities in the composition of the blood or urine or abnormalities in imaging tests). Lab Interpretation Abnormal (test code = 07299-7) [facility] WITH [id number] 10:45:00 Test Item Value Reference Range Interpretation Comments WBC (test code = See_Comment [Automated 2596-2) message] The sy stem which generated this result transmitted reference range : 4.20 - 10.70 10*3/?L. The reference range was not used to interpret this result as normal/abnormal . RBC (test code = See_Comment L [Automated 628-8) message] The sy stem which generated this result transmitted reference range : 4.26 - 5.52 10*6/?L. The reference range was not used to interpret this result as normal/abnormal . HGB (test code = 8.0 g/dL 12.2-16.4 L 718-7) HCT (test code = 26.0 % 38.4-49.3 L 4544-3) MCV (test code = 76.0 fL 81.7-95.6 L 787-2) MCH (test code = 23.4 pg 26.1-32.7 L 785-6) MCHC (test code = 30.8 g/dL 31.2-35 L 786-4) RDW-SD (test code = 49.6 fL 38.5-51.6 93787-6) RDW-CV (test code = 18.0 % 12.1-15.4 H 788-0) PLT (test code = See_Comment [Automated 777-3) message] The sy stem which generated this result transmitted reference range : 150 - 328 10*3/ ?L. The reference r jesus was not used to interpret this result as normal/abnormal . MPV (test code = 9.8 fL 9.8-13 87601-6) NRBC/100 WBC (test See_Comment [Automat ed code = 2138008382) message] The system which generated this result transmitted reference range : 0.0 - 10.0 /100 WBCs. The refer ence range was not u sed to interpret th is result as normal/abnormal . NRBC x10^3 (test code <0.01 See_Comment [Auto mated = 9727686227) message] The s ystem which generated this result transmitted reference range : 10*3/?L. The reference range was not used to interpret this result as normal/abnormal . GRAN MAT (NEUT) % 68.5 % (test code = 770-8) IMM GRAN % (test code 1.20 % = 5836736478) LYMPH % (test code = 17.1 % 736-9) MONO % (test code = 9.5 % 5905-5) EOS % (test code = 3.3 % 713-8) BASO % (test code = 0.4 % 706-2) GRAN MAT x10^3(ANC) 6.32 10*3/uL 1.99-6.95 (test code = 9285128116) IMM GRAN x10^3 (test 0.11 10*3/uL 0-0.06 H code = 5228950138) LYMPH x10^3 (test code 1.58 10*3/uL 1.09-3.23 = 731-0) MONO x10^3 (test code 0.88 10*3/uL 0.36-1.02 = 742-7) EOS x10^3 (test code = 0.30 10*3/uL 0.06-0.53 711-2) BASO x10^3 (test code 0.04 10*3/uL 0.01-0.09 = 704-7) Lab Interpretation Abnormal (test code = 73453-4) [facility] GLUCOSE (AUTOMATED)2019-12-19 01:59:00 Test Item Value Reference Range Interpretation Comments POCT GLU (test code = 8519648205) 285 mg/dL 70-110 H Lab Interpretation (test code = Abnormal 49261-7) [facility] Packed RBC (in units), 1 Units 2019-12-19 01:26:37 Test Item Value Reference Range Interpretation Comments Cross Match Result Compatible (test code = 4409) ISBT Blood Type Code (test code = 945723) Unit Blood Type (test A Pos code = 4410) Unit Number (test [id number] code = 4411) Blood Expiration Date & Time (test code = 870976) Status Information Issued (test code = 4412) Product Red Blood Cells Identification (test code = 4413) Product Code (test [id number] Performed at [facility] code = 4414) Laboratory Services [facility] Blood [address] [place] [address]Owoq Free: [phone] A No. [id number] [facility] GLUCOSE (AUTOMATED)2019-12-18 23:11:00 Test Item Value Reference Range Interpretation Comments POCT GLU (test code = 8161151615) 269 mg/dL 70-110 H Lab Interpretation (test code = Abnormal 93383-3) [facility] INVESTIGATION [id number] 19:45:40 Test Item Value Reference Range Interpretation Comments ABO & RH (test A Positive Rh-control Ne gPerformed code = 20) at [facility] Laborat ory Services [facility] Blood [address] [place] [address]Nrns Free: [phone] A No. [id number] [facility] GLUCOSE (AUTOMATED)2019-12-18 17:15:00 Test Item Value Reference Range Interpretation Comments POCT GLU (test code = 9522593964) 280 mg/dL 70-110 H Lab Interpretation (test code = Abnormal 07894-7) [facility] GLUCOSE (AUTOMATED)2019-12-18 14:30:00 Test Item Value Reference Range Interpretation Comments POCT GLU (test code = 3842276551) 204 mg/dL 70-110 H Lab Interpretation (test code = Abnormal 39006-5) [facility] METABOLIC PANEL (NA, K, CL, CO2, GLUCOSE, BUN, CREATININE, CA)2019-12-18 08:07:00 Test Item Value Reference Range Interpretation Comments NA (test code = 133 mmol/L 135-145 L 4708995654) K (test code = 4.0 mmol/L 3.5-5 8291626649) CL (test code = 100 mmol/L 98-108 9170573131) CO2 TOTAL (test code = 27 mmol/L 23-31 8768914473) AGAP (test code = 2-16 9140672511) BUN (test code = 16 mg/dL 7-23 1657171340) GLUCOSE (test code = 196 mg/dL 70-110 H 0733137277) CREATININE (test code = 0.97 mg/dL 0.6-1.25 3168845184) CALCIUM (test code = 7.8 mg/dL 8.6-10.6 L 5160223684) eGFR Calculation mL/min/1.73m2 (Non-) (test code = 9596664685) eGFR Calculation mL/min/1.73m2 () (test code = 0393430950) AKHIL (test code = AKHIL) Association of Glomerular Filtration Rate (GFR) and Staging of Kidney Disease* + --+ --+ ------+| GFR (mL/min/1.73 m2) ?| With Kidney Damage ?| ?Without Kidney Damage+ --------+ --------+ +| ?>90 ?| ?Stage one ?| ? Normal ?+ ---+ ---+ -------+| ?60-89 ?| ?Stage two ?| ? Decreased GFR ? + --+ --+ ------+| ?30-59 ?| ?Stage three ?| ? Stage three ? + --+ --+ ------+| ?15-29 ?| ?Stage four ? | ? Stage four ?+ ---+ ---+ -------+| ?<15 (or dialysis) ? ?| ?Stage five ? | ? Stage five ?+ ---+ ---+ -------+ *Each stage assumes the associated GFR level has been in effect for at least three months. ?Stages 1 to 5, with or without kidney disease, indicate chronic kidney disease. Notes: Determination of stages one and two (with eGFR >59mL/min/1.73 m2) requires estimation of kidney damage for at least three months as defined by structural or functional abnormalities of the kidney, manifested by either:Pathological abnormalities or Markers of kidney damage (including abnormalities in the composition of the blood or urine or abnormalities in imaging tests). Lab Interpretation Abnormal (test code = 54134-7) [facility] WITH [id number] 07:44:00 Test Item Value Reference Range Interpretation Comments WBC (test code = See_Comment [Automated 5990-2) message] The sy stem which generated this result transmitted reference range : 4.20 - 10.70 10*3/?L. The reference range was not used to interpret this result as normal/abnormal . RBC (test code = See_Comment L [Automated 039-8) message] The sy stem which generated this result transmitted reference range : 4.26 - 5.52 10*6/?L. The reference range was not used to interpret this result as normal/abnormal . HGB (test code = 6.9 g/dL 12.2-16.4 L 718-7) HCT (test code = 22.9 % 38.4-49.3 L 4544-3) MCV (test code = 74.1 fL 81.7-95.6 L 787-2) MCH (test code = 22.3 pg 26.1-32.7 L 785-6) MCHC (test code = 30.1 g/dL 31.2-35 L 786-4) RDW-SD (test code = 47.8 fL 38.5-51.6 42166-1) RDW-CV (test code = 17.9 % 12.1-15.4 H 788-0) PLT (test code = See_Comment [Automated 777-3) message] The sy stem which generated this result transmitted reference range : 150 - 328 10*3/ ?L. The reference r jesus was not used to interpret this result as normal/abnormal . MPV (test code = 9.7 fL 9.8-13 L 54431-2) NRBC/100 WBC (test See_Comment [Automat ed code = 5813425846) message] The system which generated this result transmitted reference range : 0.0 - 10.0 /100 WBCs. The refer ence range was not u sed to interpret th is result as normal/abnormal . NRBC x10^3 (test code <0.01 See_Comment [Auto mated = 0954334598) message] The s ystem which generated this result transmitted reference range : 10*3/?L. The reference range was not used to interpret this result as normal/abnormal . GRAN MAT (NEUT) % 72.8 % (test code = 770-8) IMM GRAN % (test code 0.80 % = 6446673145) LYMPH % (test code = 15.4 % 736-9) MONO % (test code = 9.0 % 5905-5) EOS % (test code = 1.6 % 713-8) BASO % (test code = 0.4 % 706-2) GRAN MAT x10^3(ANC) 7.75 10*3/uL 1.99-6.95 H (test code = 6849466523) IMM GRAN x10^3 (test 0.09 10*3/uL 0-0.06 H code = 9367475606) LYMPH x10^3 (test code 1.64 10*3/uL 1.09-3.23 = 731-0) MONO x10^3 (test code 0.96 10*3/uL 0.36-1.02 = 742-7) EOS x10^3 (test code = 0.17 10*3/uL 0.06-0.53 711-2) BASO x10^3 (test code 0.04 10*3/uL 0.01-0.09 = 704-7) Lab Interpretation Abnormal (test code = 85468-3) [facility] GLUCOSE (AUTOMATED)2019-12-18 01:52:00 Test Item Value Reference Range Interpretation Comments POCT GLU (test code = 5771151998) 297 mg/dL 70-110 H Lab Interpretation (test code = Abnormal 20241-7) [facility] GLUCOSE (AUTOMATED)2019-12-17 20:48:00 Test Item Value Reference Range Interpretation Comments POCT GLU (test code = 3098436951) 223 mg/dL 70-110 H Lab Interpretation (test code = Abnormal 71836-7) [facility] GLUCOSE (AUTOMATED)2019-12-17 18:10:00 Test Item Value Reference Range Interpretation Comments POCT GLU (test code = [id number]) 213 mg/dL 70-110 H Lab Interpretation (test code = Abnormal 91325-0) [facility] GLUCOSE (AUTOMATED)2019-12-17 13:09:00 Test Item Value Reference Range Interpretation Comments POCT GLU (test code = 6914621887) 186 mg/dL 70-110 H Lab Interpretation (test code = Abnormal 80836-3) [facility] [id number] 11:15:00 Test Item Value Reference Range Interpretation Comments PHOSPHORUS (test code = 9025559688) 2.7 mg/dL 2.5-5 Lab Interpretation (test code = Normal 38872-2) [facility] (NA, K, CL, CO2, GLUCOSE, BUN, CREATININE, CA)2019-12-17 11:15:00 Test Item Value Reference Range Interpretation Comments NA (test code = 135 mmol/L 135-145 1307013130) K (test code = 4.3 mmol/L 3.5-5 8760577555) CL (test code = 100 mmol/L 98-108 4940552759) CO2 TOTAL (test code = 31 mmol/L 23-31 7445659449) AGAP (test code = 2-16 8804969146) BUN (test code = 19 mg/dL 7-23 8658629519) GLUCOSE (test code = 181 mg/dL 70-110 H 0839306267) CREATININE (test code = 1.08 mg/dL 0.6-1.25 4756151229) CALCIUM (test code = 7.8 mg/dL 8.6-10.6 L 4794006377) eGFR Calculation mL/min/1.73m2 (Non-) (test code = 9237113586) eGFR Calculation mL/min/1.73m2 () (test code = 6139595194) AKHIL (test code = AKHIL) Association of Glomerular Filtration Rate (GFR) and Staging of Kidney Disease* + --+ --+ ------+| GFR (mL/min/1.73 m2) ?| With Kidney Damage ?| ?Without Kidney Damage+ --------+ --------+ +| ?>90 ?| ?Stage one ?| ? Normal ?+ ---+ ---+ -------+| ?60-89 ?| ?Stage two ?| ? Decreased GFR ? + --+ --+ ------+| ?30-59 ?| ?Stage three ?| ? Stage three ? + --+ --+ ------+| ?15-29 ?| ?Stage four ? | ? Stage four ?+ ---+ ---+ -------+| ?<15 (or dialysis) ? ?| ?Stage five ? | ? Stage five ?+ ---+ ---+ -------+ *Each stage assumes the associated GFR level has been in effect for at least three months. ?Stages 1 to 5, with or without kidney disease, indicate chronic kidney disease. Notes: Determination of stages one and two (with eGFR >59mL/min/1.73 m2) requires estimation of kidney damage for at least three months as defined by structural or functional abnormalities of the kidney, manifested by either:Pathological abnormalities or Markers of kidney damage (including abnormalities in the composition of the blood or urine or abnormalities in imaging tests). Lab Interpretation Abnormal (test code = 76886-1) [facility] 11:15:00 Test Item Value Reference Range Interpretation Comments MAGNESIUM (test code = 7196191950) 1.9 mg/dL 1.7-2.4 Lab Interpretation (test code = Normal 77321-4) [facility] [id number] 10:52:00 Test Item Value Reference Range Interpretation Comments WBC (test code = See_Comment H [Automated 6690-2) message] The sy stem which generated this result transmitted reference range : 4.20 - 10.70 10*3/?L. The reference range was not used to interpret this result as normal/abnormal . RBC (test code = See_Comment L [Automated 789-8) message] The sy stem which generated this result transmitted reference range : 4.26 - 5.52 10*6/?L. The reference range was not used to interpret this result as normal/abnormal . HGB (test code = 7.1 g/dL 12.2-16.4 L 718-7) HCT (test code = 23.9 % 38.4-49.3 L 4544-3) MCV (test code = 75.6 fL 81.7-95.6 L 787-2) MCH (test code = 22.5 pg 26.1-32.7 L 785-6) MCHC (test code = 29.7 g/dL 31.2-35 L 786-4) RDW-SD (test code = 48.7 fL 38.5-51.6 57839-1) RDW-CV (test code = 17.7 % 12.1-15.4 H 788-0) PLT (test code = See_Comment [Automated 777-3) message] The sy stem which generated this result transmitted reference range : 150 - 328 10*3/ ?L. The reference r jesus was not used to interpret this result as normal/abnormal . MPV (test code = 10.0 fL 9.8-13 25864-1) NRBC/100 WBC (test See_Comment [Automat ed code = 1449669943) message] The system which generated this result transmitted reference range : 0.0 - 10.0 /100 WBCs. The refer ence range was not u sed to interpret th is result as normal/abnormal . NRBC x10^3 (test code <0.01 See_Comment [Auto mated = 3038053034) message] The s ystem which generated this result transmitted reference range : 10*3/?L. The reference range was not used to interpret this result as normal/abnormal . GRAN MAT (NEUT) % 74.2 % (test code = 770-8) IMM GRAN % (test code 0.70 % = 2119699194) LYMPH % (test code = 14.3 % 736-9) MONO % (test code = 9.9 % 5905-5) EOS % (test code = 0.6 % 713-8) BASO % (test code = 0.3 % 706-2) GRAN MAT x10^3(ANC) 9.26 10*3/uL 1.99-6.95 H (test code = 1661712567) IMM GRAN x10^3 (test 0.09 10*3/uL 0-0.06 H code = 2938342474) LYMPH x10^3 (test code 1.78 10*3/uL 1.09-3.23 = 731-0) MONO x10^3 (test code 1.24 10*3/uL 0.36-1.02 H = 742-7) EOS x10^3 (test code = 0.08 10*3/uL 0.06-0.53 711-2) BASO x10^3 (test code 0.04 10*3/uL 0.01-0.09 = 704-7) Lab Interpretation Abnormal (test code = 50657-4) [facility] GLUCOSE (AUTOMATED)2019-12-17 01:46:00 Test Item Value Reference Range Interpretation Comments POCT GLU (test code = 5152832614) 205 mg/dL 70-110 H Lab Interpretation (test code = Abnormal 85895-6) [facility] GLUCOSE (AUTOMATED)2019-12-16 21:19:00 Test Item Value Reference Range Interpretation Comments POCT GLU (test code = 3198735105) 169 mg/dL 70-110 H Lab Interpretation (test code = Abnormal 34613-8) [facility] GLUCOSE (AUTOMATED)2019-12-16 16:01:00 Test Item Value Reference Range Interpretation Comments POCT GLU (test code = 9879957468) 198 mg/dL 70-110 H Lab Interpretation (test code = Abnormal 13386-4) [facility] WITHOUT [id number] 14:24:00 Test Item Value Reference Range Interpretation Comments WBC (test code = 6690-2) See_Comment H [A utomated message] The system [employer] generated this result transmit sapna reference range : 4.20 - 10.70 10*3/?L. The reference range was not used to interpret this result as normal/abnormal . RBC (test code = 789-8) See_Comment L [Au tomated message] The system [employer] generated this result transmit sapna reference range : 4.26 - 5.52 10* 6/?L. The reference r jesus was not used to interpret this result as normal/abnormal . HGB (test code = 718-7) 7.9 g/dL 12.2-16.4 L HCT (test code = 4544-3) 26.0 % 38.4-49.3 L MCH (test code = 785-6) 22.4 pg 26.1-32.7 L MCV (test code = 787-2) 73.9 fL 81.7-95.6 L MCHC (test code = 786-4) 30.4 g/dL 31.2-35 L PLT (test code = 777-3) See_Comment [Au tomated message] The system [facility] generated this result transmit sapna reference range : 150 - 328 10*3/?L. The reference range was not used to interpret this result as normal/abnormal . MPV (test code = 10.2 fL 9.8-13 75191-3) RDW-CV (test code = 17.5 % 12.1-15.4 H 788-0) RDW-SD (test code = 46.5 fL 38.5-51.6 87943-4) NRBC x10^3 (test code = <0.01 See_Comment [Au tomated message] 3223799326) The system [employer] generated this result transmit sapna reference range : 10*3/?L. The reference range was not used to interpret this result as normal/abnormal . NRBC/100 WBC (test code See_Comment [Au tomated message] = 4223006503) The system [facility] generated this result transmit sapna reference range : 0.0 - 10.0 /100 WBC s. The reference r jesus was not used to interpret this result as normal/abnormal . IPF % (test code = 5687480568) Lab Interpretation (test Abnormal code = 37701-8) [facility] 13:37:00 Test Item Value Reference Range Interpretation Comments ALBUMIN (test code = 0310495202) 2.7 g/dL 3.5-5 L Lab Interpretation (test code = Abnormal 25308-9) [facility]2019-12-16 12:55:00 Test Item Value Reference Range Interpretation Comments POCT GLU (test code = 9369126801) 212 mg/dL 70-110 H Lab Interpretation (test code = Abnormal 01925-5) [facility] Metabolic Panel (NA, K, CL, CO2, GLUCOSE, BUN, CREATININE, CA)2019-12-16 12:11:00 Test Item Value Reference Range Interpretation Comments NA (test code = 137 mmol/L 135-145 1759754966) K (test code = 4.1 mmol/L 3.5-5 3379352966) CL (test code = 100 mmol/L 98-108 7960526555) CO2 TOTAL (test code = 25 mmol/L 23-31 1828848700) AGAP (test code = 2-16 0951219113) BUN (test code = 18 mg/dL 7-23 1688281371) GLUCOSE (test code = 197 mg/dL 70-110 H 0668770497) CREATININE (test code = 0.96 mg/dL 0.6-1.25 4267793943) CALCIUM (test code = 7.5 mg/dL 8.6-10.6 L 6507827945) eGFR Calculation mL/min/1.73m2 (Non-) (test code = 4134841677) eGFR Calculation mL/min/1.73m2 () (test code = 3737385447) AKHIL (test code = AKHIL) Association of Glomerular Filtration Rate (GFR) and Staging of Kidney Disease* + --+ --+ ------+| GFR (mL/min/1.73 m2) ?| With Kidney Damage ?| ?Without Kidney Damage+ --------+ --------+ +| ?>90 ?| ?Stage one ?| ? Normal ?+ ---+ ---+ -------+| ?60-89 ?| ?Stage two ?| ? Decreased GFR ? + --+ --+ ------+| ?30-59 ?| ?Stage three ?| ? Stage three ? + --+ --+ ------+| ?15-29 ?| ?Stage four ? | ? Stage four ?+ ---+ ---+ -------+| ?<15 (or dialysis) ? ?| ?Stage five ? | ? Stage five ?+ ---+ ---+ -------+ *Each stage assumes the associated GFR level has been in effect for at least three months. ?Stages 1 to 5, with or without kidney disease, indicate chronic kidney disease. Notes: Determination of stages one and two (with eGFR >59mL/min/1.73 m2) requires estimation of kidney damage for at least three months as defined by structural or functional abnormalities of the kidney, manifested by either:Pathological abnormalities or Markers of kidney damage (including abnormalities in the composition of the blood or urine or abnormalities in imaging tests). Lab Interpretation Abnormal (test code = 53985-6) [facility] [id number] 12:11:00 Test Item Value Reference Range Interpretation Comments MAGNESIUM (test code = 1821047162) 1.8 mg/dL 1.7-2.4 Lab Interpretation (test code = Normal 07053-3) [facility] [id number] 12:11:00 Test Item Value Reference Range Interpretation Comments PHOSPHORUS (test code = 2616835858) 4.2 mg/dL 2.5-5 Lab Interpretation (test code = Normal 16770-0) [facility] with [id number] 11:58:00 Test Item Value Reference Range Interpretation Comments WBC (test code = See_Comment H [Automated 6690-2) message] The system which generated this result transmit sapna reference range : 4.20 - 10.70 10*3/?L. The reference range was not used to interpret this result as normal/abnormal . RBC (test code = See_Comment L [Automated 789-8) message] The system which generated this result transmit sapna reference range : 4.26 - 5.52 10*6/?L. The reference range was not used to interpret this result as normal/abnormal . HGB (test code = 6.9 g/dL 12.2-16.4 L 718-7) HCT (test code = 22.7 % 38.4-49.3 L 4544-3) MCV (test code = 75.9 fL 81.7-95.6 L 787-2) MCH (test code = 23.1 pg 26.1-32.7 L 785-6) MCHC (test code = 30.4 g/dL 31.2-35 L 786-4) RDW-SD (test code = 47.6 fL 38.5-51.6 74681-9) RDW-CV (test code = 17.3 % 12.1-15.4 H 788-0) PLT (test code = See_Comment [Automated 777-3) message] The system which generated this result transmit sapna reference range : 150 - 328 10*3/ ?L. The reference range was not u sed to interpret th is result as normal/abnormal . MPV (test code = 9.6 fL 9.8-13 L 91190-3) NRBC/100 WBC (test See_Comment [Automat ed code = 8044975572) message] The system which generated this result transmit sapna reference range : 0.0 - 10.0 /100 WBCs. The reference range was not used to interpret this result as normal/abnormal . NRBC x10^3 (test code <0.01 See_Comment [Auto mated = 6358029551) message] The system which generated this result transmit sapna reference range : 10*3/?L. The reference range was not used to interpret this result as normal/abnormal . GRAN MAT (NEUT) % 82.1 % (test code = 770-8) IMM GRAN % (test code 0.60 % = 4761454110) LYMPH % (test code = 8.3 % 736-9) MONO % (test code = 8.9 % 5905-5) EOS % (test code = 0.0 % 713-8) BASO % (test code = 0.1 % 706-2) GRAN MAT x10^3(ANC) 11.61 10*3/uL 1.99-6.95 H (test code = 4114604586) IMM GRAN x10^3 (test 0.08 10*3/uL 0-0.06 H code = 3357677918) LYMPH x10^3 (test code 1.18 10*3/uL 1.09-3.23 = 731-0) MONO x10^3 (test code 1.26 10*3/uL 0.36-1.02 H = 742-7) EOS x10^3 (test code = <0.03 0.06-0.53 L 711-2) BASO x10^3 (test code <0.03 0.01-0.09 = 704-7) Lab Interpretation Abnormal (test code = 59399-6) [facility] WITHOUT [id number] 03:44:00 Test Item Value Reference Range Interpretation Comments WBC (test code = 6690-2) See_Comment H [A utomated message] The system [employer] generated this result transmit sapna reference range : 4.20 - 10.70 10*3/?L. The reference range was not used to interpret this result as normal/abnormal . RBC (test code = 789-8) See_Comment L [Au tomated message] The system [employer] generated this result transmit sapna reference range : 4.26 - 5.52 10* 6/?L. The reference r jesus was not used to interpret this result as normal/abnormal . HGB (test code = 718-7) 8.3 g/dL 12.2-16.4 L HCT (test code = 4544-3) 27.7 % 38.4-49.3 L MCH (test code = 785-6) 22.4 pg 26.1-32.7 L MCV (test code = 787-2) 74.7 fL 81.7-95.6 L MCHC (test code = 786-4) 30.0 g/dL 31.2-35 L PLT (test code = 777-3) See_Comment [Au tomated message] The system [employer] generated this result transmit sapna reference range : 150 - 328 10*3/?L. The reference range was not used to interpret this result as normal/abnormal . MPV (test code = 11.4 fL 9.8-13 67495-8) RDW-CV (test code = 18.6 % 12.1-15.4 H 788-0) RDW-SD (test code = 48.7 fL 38.5-51.6 36549-2) NRBC x10^3 (test code = <0.01 See_Comment [Au tomated message] 6772883540) The system [employer] generated this result transmit sapna reference range : 10*3/?L. The reference range was not used to interpret this result as normal/abnormal . NRBC/100 WBC (test code See_Comment [Au tomated message] = 4925722675) The system [employer] generated this result transmit sapna reference range : 0.0 - 10.0 /100 WBC s. The reference r jesus was not used to interpret this result as normal/abnormal . IPF % (test code = 4037284595) Lab Interpretation (test Abnormal code = 30486-8) [facility]2019-12-16 03:12:00 Test Item Value Reference Range Interpretation Comments POCT GLU (test code = 8351263533) 296 mg/dL 70-110 H Lab Interpretation (test code = Abnormal 17533-1) [facility] METABOLIC PANEL (NA, K, CL, CO2, GLUCOSE, BUN, CREATININE, CA)2019-12-15 13:32:00 Test Item Value Reference Range Interpretation Comments NA (test code = 137 mmol/L 135-145 2954941824) K (test code = 4.0 mmol/L 3.5-5 5706202952) CL (test code = 105 mmol/L 98-108 6517311356) CO2 TOTAL (test code = 26 mmol/L 23-31 2411928825) AGAP (test code = 2-16 8870076640) BUN (test code = 15 mg/dL 7-23 4551903215) GLUCOSE (test code = 171 mg/dL 70-110 H 7614955025) CREATININE (test code = 0.90 mg/dL 0.6-1.25 4162641071) CALCIUM (test code = 7.7 mg/dL 8.6-10.6 L 4079185934) eGFR Calculation mL/min/1.73m2 (Non-) (test code = 4921887532) eGFR Calculation mL/min/1.73m2 () (test code = 2283143998) AKHIL (test code = AKHIL) Association of Glomerular Filtration Rate (GFR) and Staging of Kidney Disease* + --+ --+ ------+| GFR (mL/min/1.73 m2) ?| With Kidney Damage ?| ?Without Kidney Damage+ --------+ --------+ +| ?>90 ?| ?Stage one ?| ? Normal ?+ ---+ ---+ -------+| ?60-89 ?| ?Stage two ?| ? Decreased GFR ? + --+ --+ ------+| ?30-59 ?| ?Stage three ?| ? Stage three ? + --+ --+ ------+| ?15-29 ?| ?Stage four ? | ? Stage four ?+ ---+ ---+ -------+| ?<15 (or dialysis) ? ?| ?Stage five ? | ? Stage five ?+ ---+ ---+ -------+ *Each stage assumes the associated GFR level has been in effect for at least three months. ?Stages 1 to 5, with or without kidney disease, indicate chronic kidney disease. Notes: Determination of stages one and two (with eGFR >59mL/min/1.73 m2) requires estimation of kidney damage for at least three months as defined by structural or functional abnormalities of the kidney, manifested by either:Pathological abnormalities or Markers of kidney damage (including abnormalities in the composition of the blood or urine or abnormalities in imaging tests). Lab Interpretation Abnormal (test code = 79958-9) [facility]2019-12-15 13:19:00 Test Item Value Reference Range Interpretation Comments POCT GLU (test code = 6147659062) 185 mg/dL 70-110 H Lab Interpretation (test code = Abnormal 67490-0) [facility] TexasPROTHROMBIN [facility] / [id number] 13:16:00 Test Item Value Reference Range Interpretation Comments PROTIME PATIENT (test See_Comment H [Auto mated message] code = 5964-2) The system [employer] generated this result transmitted ref erence range: 10.1 - 1 2.6 Seconds. The reference range was not used to int erpret this result as normal/abnormal . INR (test code = 6301-6) Nor mal INR <1.1; Warfarin Therap eutic range 2.0 to 3. 0 or 2.5 to 3.5, dep ending upon the indica tions. Lab Interpretation (test Abnormal code = 31050-7) [facility] WITH [id number] 13:09:00 Test Item Value Reference Range Interpretation Comments WBC (test code = See_Comment H [Automated 6690-2) message] The system which generated this result transmit sapna reference range : 4.20 - 10.70 10*3/?L. The reference range was not used to interpret this result as normal/abnormal . RBC (test code = See_Comment L [Automated 789-8) message] The system which generated this result transmit sapna reference range : 4.26 - 5.52 10*6/?L. The reference range was not used to interpret this result as normal/abnormal . HGB (test code = 8.1 g/dL 12.2-16.4 L 718-7) HCT (test code = 27.0 % 38.4-49.3 L 4544-3) MCV (test code = 74.4 fL 81.7-95.6 L 787-2) MCH (test code = 22.3 pg 26.1-32.7 L 785-6) MCHC (test code = 30.0 g/dL 31.2-35 L 786-4) RDW-SD (test code = 47.0 fL 38.5-51.6 60317-5) RDW-CV (test code = 17.5 % 12.1-15.4 H 788-0) PLT (test code = See_Comment [Automated 777-3) message] The system which generated this result transmit sapna reference range : 150 - 328 10*3/ ?L. The reference range was not u sed to interpret th is result as normal/abnormal . MPV (test code = 9.6 fL 9.8-13 L 63495-3) NRBC/100 WBC (test See_Comment [Automat ed code = 4701006775) message] The system which generated this result transmit sapna reference range : 0.0 - 10.0 /100 WBCs. The reference range was not used to interpret this result as normal/abnormal . NRBC x10^3 (test code <0.01 See_Comment [Auto mated = 5315554357) message] The system which generated this result transmit sapna reference range : 10*3/?L. The reference range was not used to interpret this result as normal/abnormal . GRAN MAT (NEUT) % 84.1 % (test code = 770-8) IMM GRAN % (test code 0.40 % = 5804791239) LYMPH % (test code = 7.7 % 736-9) MONO % (test code = 7.0 % 5905-5) EOS % (test code = 0.5 % 713-8) BASO % (test code = 0.3 % 706-2) GRAN MAT x10^3(ANC) 11.19 10*3/uL 1.99-6.95 H (test code = 4412886253) IMM GRAN x10^3 (test 0.05 10*3/uL 0-0.06 code = 0979566459) LYMPH x10^3 (test code 1.03 10*3/uL 1.09-3.23 L = 731-0) MONO x10^3 (test code 0.93 10*3/uL 0.36-1.02 = 742-7) EOS x10^3 (test code = 0.07 10*3/uL 0.06-0.53 711-2) BASO x10^3 (test code 0.04 10*3/uL 0.01-0.09 = 704-7) Lab Interpretation Abnormal (test code = 31359-6) [facility] GLUCOSE (AUTOMATED)2019-12-15 01:12:00 Test Item Value Reference Range Interpretation Comments POCT GLU (test code = 2096286611) 193 mg/dL 70-110 H Lab Interpretation (test code = Abnormal 58685-4) [facility] GLUCOSE (AUTOMATED)2019-12-14 22:13:00 Test Item Value Reference Range Interpretation Comments POCT GLU (test code = 1536813765) 223 mg/dL 70-110 H Lab Interpretation (test code = Abnormal 74339-5) [facility] GLUCOSE (AUTOMATED)2019-12-14 18:36:00 Test Item Value Reference Range Interpretation Comments POCT GLU (test code = 1368728267) 202 mg/dL 70-110 H Lab Interpretation (test code = Abnormal 30280-6) [facility] GLUCOSE (AUTOMATED)2019-12-14 17:41:00 Test Item Value Reference Range Interpretation Comments POCT GLU (test code = 4843480167) 178 mg/dL 70-110 H Lab Interpretation (test code = Abnormal 82998-9) [facility] TexasType [facility] Screen - ONCE [id number] 16:33:19 Test Item Value Reference Range Interpretation Comments ABO & RH (test code A POSITIVE Performe d at [facility] = 20) Laboratory Serv [facility] [address] [facility] s [address]Hmgz Free: [phone] A No. [id number] IAT (test code = Negative Performed a t [facility] 1185) Laboratory Serv [facility] [address] [facility] s [address]Hjjj Free: [phone] A No. [id number] [facility]OVID[facility] (ID NOW RAPID TESTING)2019-12-14 16:15:00 Test Item Value Reference Range Interpretation Comments SARS-CoV-2 Rapid ID NOW Not Detected Not Detected (test code = 04219-1) AKHIL (test code = AKHIL) ID NOW COVID-19 Assay is an isothermal nucleic acid amplification test intended for the qualitative detection of nucleic acid from SARS-CoV-2 viral RNA in nasopharyngeal (WEB MARKETING ANALYST) specimens. It is used under Emergency Use Authorization (EUA) by FDA. The limit of detection (LOD) of the assay is 125 Genome Equivalents/mL. A positive result is indicative of the presence of SARS-CoV-2 RNA. ?Clinical correlation with patient history and other diagnostic information is necessary to determine patient infection status. A negative (Not Detected) result does not preclude SARS-CoV-2 infection. In patients with clinical symptoms and other tests that are consistent with SARS-CoV-2 infection, negative results should be treated as presumptive negative and a new specimen should be tested with alternative PCR molecular test. Invalid: Please collect a new specimen for repeat patient testing if clinically indicated. Lab Interpretation Normal (test code = 37255-3) [facility] METABOLIC PANEL (NA, K, CL, CO2, GLUCOSE, BUN, CREATININE, CA)2019-12-14 12:39:00 Test Item Value Reference Range Interpretation Comments NA (test code = 136 mmol/L 135-145 2253795637) K (test code = 4.1 mmol/L 3.5-5 7917696543) CL (test code = 101 mmol/L 98-108 3837557241) CO2 TOTAL (test code = 26 mmol/L 23-31 5600444109) AGAP (test code = 2-16 2356668011) BUN (test code = 13 mg/dL 7-23 7627480783) GLUCOSE (test code = 183 mg/dL 70-110 H 8286782678) CREATININE (test code = 0.95 mg/dL 0.6-1.25 7367050204) CALCIUM (test code = 8.4 mg/dL 8.6-10.6 L 0041243785) eGFR Calculation mL/min/1.73m2 (Non-) (test code = 5914049090) eGFR Calculation mL/min/1.73m2 () (test code = 5532872764) AKHIL (test code = AKHIL) Association of Glomerular Filtration Rate (GFR) and Staging of Kidney Disease* + --+ --+ ------+| GFR (mL/min/1.73 m2) ?| With Kidney Damage ?| ?Without Kidney Damage+ --------+ --------+ +| ?>90 ?| ?Stage one ?| ? Normal ?+ ---+ ---+ -------+| ?60-89 ?| ?Stage two ?| ? Decreased GFR ? + --+ --+ ------+| ?30-59 ?| ?Stage three ?| ? Stage three ? + --+ --+ ------+| ?15-29 ?| ?Stage four ? | ? Stage four ?+ ---+ ---+ -------+| ?<15 (or dialysis) ? ?| ?Stage five ? | ? Stage five ?+ ---+ ---+ -------+ *Each stage assumes the associated GFR level has been in effect for at least three months. ?Stages 1 to 5, with or without kidney disease, indicate chronic kidney disease. Notes: Determination of stages one and two (with eGFR >59mL/min/1.73 m2) requires estimation of kidney damage for at least three months as defined by structural or functional abnormalities of the kidney, manifested by either:Pathological abnormalities or Markers of kidney damage (including abnormalities in the composition of the blood or urine or abnormalities in imaging tests). Lab Interpretation Abnormal (test code = 50389-6) [facility] WITH [id number] 12:12:00 Test Item Value Reference Range Interpretation Comments WBC (test code = See_Comment H [Automated 6690-2) message] The sy stem which generated this result transmitted reference range : 4.20 - 10.70 10*3/?L. The reference range was not used to interpret this result as normal/abnormal . RBC (test code = See_Comment L [Automated 789-8) message] The sy stem which generated this result transmitted reference range : 4.26 - 5.52 10*6/?L. The reference range was not used to interpret this result as normal/abnormal . HGB (test code = 9.0 g/dL 12.2-16.4 L 718-7) HCT (test code = 30.0 % 38.4-49.3 L 4544-3) MCV (test code = 74.8 fL 81.7-95.6 L 787-2) MCH (test code = 22.4 pg 26.1-32.7 L 785-6) MCHC (test code = 30.0 g/dL 31.2-35 L 786-4) RDW-SD (test code = 48.6 fL 38.5-51.6 22697-2) RDW-CV (test code = 17.8 % 12.1-15.4 H 788-0) PLT (test code = See_Comment [Automated 777-3) message] The sy stem which generated this result transmitted reference range : 150 - 328 10*3/ ?L. The reference r jesus was not used to interpret this result as normal/abnormal . MPV (test code = 10.1 fL 9.8-13 89610-7) NRBC/100 WBC (test See_Comment [Automat ed code = 2485422373) message] The system which generated this result transmitted reference range : 0.0 - 10.0 /100 WBCs. The refer ence range was not u sed to interpret th is result as normal/abnormal . NRBC x10^3 (test code <0.01 See_Comment [Auto mated = 4722140463) message] The s ystem which generated this result transmitted reference range : 10*3/?L. The reference range was not used to interpret this result as normal/abnormal . GRAN MAT (NEUT) % 81.0 % (test code = 770-8) IMM GRAN % (test code 0.50 % = 1870566650) LYMPH % (test code = 10.1 % 736-9) MONO % (test code = 7.3 % 5905-5) EOS % (test code = 0.8 % 713-8) BASO % (test code = 0.3 % 706-2) GRAN MAT x10^3(ANC) 8.91 10*3/uL 1.99-6.95 H (test code = 1499680883) IMM GRAN x10^3 (test 0.05 10*3/uL 0-0.06 code = 0824315925) LYMPH x10^3 (test code 1.11 10*3/uL 1.09-3.23 = 731-0) MONO x10^3 (test code 0.80 10*3/uL 0.36-1.02 = 742-7) EOS x10^3 (test code = 0.09 10*3/uL 0.06-0.53 711-2) BASO x10^3 (test code 0.03 10*3/uL 0.01-0.09 = 704-7) Lab Interpretation Abnormal (test code = 38388-6) [facility] GLUCOSE (AUTOMATED)2019-12-14 01:43:00 Test Item Value Reference Range Interpretation Comments POCT GLU (test code = 0778032286) 196 mg/dL 70-110 H Lab Interpretation (test code = Abnormal 44239-4) [facility] GLUCOSE (AUTOMATED)2019-12-13 22:21:00 Test Item Value Reference Range Interpretation Comments POCT GLU (test code = 7842961597) 283 mg/dL 70-110 H Lab Interpretation (test code = Abnormal 88496-2) [facility] GLUCOSE (AUTOMATED)2019-12-13 17:11:00 Test Item Value Reference Range Interpretation Comments POCT GLU (test code = 4518555849) 206 mg/dL 70-110 H Lab Interpretation (test code = Abnormal 85272-0) [facility] GLUCOSE (AUTOMATED)2019-12-13 13:13:00 Test Item Value Reference Range Interpretation Comments POCT GLU (test code = 3530900413) 165 mg/dL 70-110 H Lab Interpretation (test code = Abnormal 50863-1) [facility] GLUCOSE (AUTOMATED)2019-12-13 01:26:00 Test Item Value Reference Range Interpretation Comments POCT GLU (test code = 5536345811) 197 mg/dL 70-110 H Lab Interpretation (test code = Abnormal 91729-5) [facility] GLUCOSE (AUTOMATED)2019-12-12 22:13:00 Test Item Value Reference Range Interpretation Comments POCT GLU (test code = 3393247477) 213 mg/dL 70-110 H Lab Interpretation (test code = Abnormal 00733-0) [facility] GLUCOSE (AUTOMATED)2019-12-12 17:18:00 Test Item Value Reference Range Interpretation Comments POCT GLU (test code = 4390865917) 110 mg/dL 70-110 Lab Interpretation (test code = Normal 72404-1) [facility] GLUCOSE (AUTOMATED)2019-12-12 13:35:00 Test Item Value Reference Range Interpretation Comments POCT GLU (test code = 2638761946) 210 mg/dL 70-110 H Lab Interpretation (test code = Abnormal 85410-2) [facility] METABOLIC PANEL (NA, K, CL, CO2, GLUCOSE, BUN, CREATININE, CA)2019-12-12 10:58:00 Test Item Value Reference Range Interpretation Comments NA (test code = 140 mmol/L 135-145 5435035493) K (test code = 4.1 mmol/L 3.5-5 8100996961) CL (test code = 105 mmol/L 98-108 0155838192) CO2 TOTAL (test code = 28 mmol/L 23-31 2863306368) AGAP (test code = 2-16 3300280133) BUN (test code = 18 mg/dL 7-23 7664194494) GLUCOSE (test code = 269 mg/dL 70-110 H 3940495225) CREATININE (test code = 1.04 mg/dL 0.6-1.25 0071292754) CALCIUM (test code = 8.2 mg/dL 8.6-10.6 L 4788369241) eGFR Calculation mL/min/1.73m2 (Non-) (test code = 5790847485) eGFR Calculation mL/min/1.73m2 () (test code = 2390628914) AKHIL (test code = AKHIL) Association of Glomerular Filtration Rate (GFR) and Staging of Kidney Disease* + --+ --+ ------+| GFR (mL/min/1.73 m2) ?| With Kidney Damage ?| ?Without Kidney Damage+ --------+ --------+ +| ?>90 ?| ?Stage one ?| ? Normal ?+ ---+ ---+ -------+| ?60-89 ?| ?Stage two ?| ? Decreased GFR ? + --+ --+ ------+| ?30-59 ?| ?Stage three ?| ? Stage three ? + --+ --+ ------+| ?15-29 ?| ?Stage four ? | ? Stage four ?+ ---+ ---+ -------+| ?<15 (or dialysis) ? ?| ?Stage five ? | ? Stage five ?+ ---+ ---+ -------+ *Each stage assumes the associated GFR level has been in effect for at least three months. ?Stages 1 to 5, with or without kidney disease, indicate chronic kidney disease. Notes: Determination of stages one and two (with eGFR >59mL/min/1.73 m2) requires estimation of kidney damage for at least three months as defined by structural or functional abnormalities of the kidney, manifested by either:Pathological abnormalities or Markers of kidney damage (including abnormalities in the composition of the blood or urine or abnormalities in imaging tests). Lab Interpretation Abnormal (test code = 65608-6) [facility] WITH [id number] 10:32:00 Test Item Value Reference Range Interpretation Comments WBC (test code = See_Comment [Automated 7453-2) message] The sy stem which generated this result transmitted reference range : 4.20 - 10.70 10*3/?L. The reference range was not used to interpret this result as normal/abnormal . RBC (test code = See_Comment L [Automated 475-8) message] The sy stem which generated this result transmitted reference range : 4.26 - 5.52 10*6/?L. The reference range was not used to interpret this result as normal/abnormal . HGB (test code = 8.6 g/dL 12.2-16.4 L 718-7) HCT (test code = 29.2 % 38.4-49.3 L 4544-3) MCV (test code = 76.2 fL 81.7-95.6 L 787-2) MCH (test code = 22.5 pg 26.1-32.7 L 785-6) MCHC (test code = 29.5 g/dL 31.2-35 L 786-4) RDW-SD (test code = 49.2 fL 38.5-51.6 92660-1) RDW-CV (test code = 17.9 % 12.1-15.4 H 788-0) PLT (test code = See_Comment [Automated 777-3) message] The sy stem which generated this result transmitted reference range : 150 - 328 10*3/ ?L. The reference r jesus was not used to interpret this result as normal/abnormal . MPV (test code = 10.1 fL 9.8-13 82872-3) NRBC/100 WBC (test See_Comment [Automat ed code = 6019627582) message] The system which generated this result transmitted reference range : 0.0 - 10.0 /100 WBCs. The refer ence range was not u sed to interpret th is result as normal/abnormal . NRBC x10^3 (test code <0.01 See_Comment [Auto mated = 6839884925) message] The s ystem which generated this result transmitted reference range : 10*3/?L. The reference range was not used to interpret this result as normal/abnormal . GRAN MAT (NEUT) % 72.8 % (test code = 770-8) IMM GRAN % (test code 0.50 % = 9008261523) LYMPH % (test code = 15.1 % 736-9) MONO % (test code = 8.9 % 5905-5) EOS % (test code = 2.4 % 713-8) BASO % (test code = 0.3 % 706-2) GRAN MAT x10^3(ANC) 5.53 10*3/uL 1.99-6.95 (test code = 5391496306) IMM GRAN x10^3 (test 0.04 10*3/uL 0-0.06 code = 1388875101) LYMPH x10^3 (test code 1.15 10*3/uL 1.09-3.23 = 731-0) MONO x10^3 (test code 0.68 10*3/uL 0.36-1.02 = 742-7) EOS x10^3 (test code = 0.18 10*3/uL 0.06-0.53 711-2) BASO x10^3 (test code <0.03 0.01-0.09 = 704-7) Lab Interpretation Abnormal (test code = 44928-4) [facility] GLUCOSE (AUTOMATED)2019-12-12 01:46:00 Test Item Value Reference Range Interpretation Comments POCT GLU (test code = 5691833255) 172 mg/dL 70-110 H Lab Interpretation (test code = Abnormal 06024-1) [facility] 00:33:13 These images do not require a Radiology diagnostic report.[facility] GLUCOSE (AUTOMATED)2019-12-11 17:31:00 Test Item Value Reference Range Interpretation Comments POCT GLU (test code = 0370611742) 160 mg/dL 70-110 H Lab Interpretation (test code = Abnormal 13850-9) [facility] GLUCOSE (AUTOMATED)2019-12-11 14:16:00 Test Item Value Reference Range Interpretation Comments POCT GLU (test code = 6082793770) 150 mg/dL 70-110 H Lab Interpretation (test code = Abnormal 74302-9) [facility] WITH [id number] 10:41:00 Test Item Value Reference Range Interpretation Comments WBC (test code = See_Comment [Automated 6690-2) message] The sy stem which generated this result transmitted reference range : 4.20 - 10.70 10*3/?L. The reference range was not used to interpret this result as normal/abnormal . RBC (test code = See_Comment L [Automated 269-8) message] The sy stem which generated this result transmitted reference range : 4.26 - 5.52 10*6/?L. The reference range was not used to interpret this result as normal/abnormal . HGB (test code = 8.8 g/dL 12.2-16.4 L 718-7) HCT (test code = 30.2 % 38.4-49.3 L 4544-3) MCV (test code = 76.8 fL 81.7-95.6 L 787-2) MCH (test code = 22.4 pg 26.1-32.7 L 785-6) MCHC (test code = 29.1 g/dL 31.2-35 L 786-4) RDW-SD (test code = 49.7 fL 38.5-51.6 63047-9) RDW-CV (test code = 17.8 % 12.1-15.4 H 788-0) PLT (test code = See_Comment [Automated 777-3) message] The sy stem which generated this result transmitted reference range : 150 - 328 10*3/ ?L. The reference r jesus was not used to interpret this result as normal/abnormal . MPV (test code = 10.4 fL 9.8-13 48072-7) NRBC/100 WBC (test See_Comment [Automat ed code = 6007736764) message] The system which generated this result transmitted reference range : 0.0 - 10.0 /100 WBCs. The refer ence range was not u sed to interpret th is result as normal/abnormal . NRBC x10^3 (test code <0.01 See_Comment [Auto mated = 2923919223) message] The s ystem which generated this result transmitted reference range : 10*3/?L. The reference range was not used to interpret this result as normal/abnormal . GRAN MAT (NEUT) % 70.2 % (test code = 770-8) IMM GRAN % (test code 0.40 % = 8125065389) LYMPH % (test code = 17.1 % 736-9) MONO % (test code = 9.2 % 5905-5) EOS % (test code = 2.7 % 713-8) BASO % (test code = 0.4 % 706-2) GRAN MAT x10^3(ANC) 5.78 10*3/uL 1.99-6.95 (test code = 8324327877) IMM GRAN x10^3 (test 0.03 10*3/uL 0-0.06 code = 9203401478) LYMPH x10^3 (test code 1.41 10*3/uL 1.09-3.23 = 731-0) MONO x10^3 (test code 0.76 10*3/uL 0.36-1.02 = 742-7) EOS x10^3 (test code = 0.22 10*3/uL 0.06-0.53 711-2) BASO x10^3 (test code 0.03 10*3/uL 0.01-0.09 = 704-7) Lab Interpretation Abnormal (test code = 00115-6) [facility] METABOLIC PANEL (NA, K, CL, CO2, GLUCOSE, BUN, CREATININE, CA)2019-12-11 10:07:00 Test Item Value Reference Range Interpretation Comments NA (test code = 136 mmol/L 135-145 6832143189) K (test code = 4.8 mmol/L 3.5-5 Slight 4981117293) hemolysis CL (test code = 104 mmol/L 98-108 5220223889) CO2 TOTAL (test code 24 mmol/L 23-31 = 2688166737) AGAP (test code = 2-16 6844479961) BUN (test code = 24 mg/dL 7-23 H Slight 5558728239) hemolysis GLUCOSE (test code = 183 mg/dL 70-110 H 2498740579) CREATININE (test code 1.05 mg/dL 0.6-1.25 = 4198201216) CALCIUM (test code = 8.4 mg/dL 8.6-10.6 L 1973585190) eGFR Calculation mL/min/1.73m2 (Non-) (test code = 5198459106) eGFR Calculation mL/min/1.73m2 () (test code = 9789316134) AKHIL (test code = AKHIL) Association of Glomerular Filtration Rate (GFR) and Staging of Kidney Disease* + -----+ --------+ +| GFR (mL/min/1.73 m2) ?| With Kidney Damage ?| ?Without Kidney Damage+ +------- +---- --+| ?>90 ?| ?Stage one ?| ? Normal ?+ ------+ ---------+--------- +| ?60-89 ?| ?Stage two ?| ? Decreased GFR ? + -----+ --------+ +| ?30-59 ?| ?Stage three ?| ? Stage three ? + -----+ --------+ +| ?15-29 ?| ?Stage four ? | ? Stage four ?+ ------+ ---------+--------- +| ?<15 (or dialysis) ? ?| ?Stage five ? | ? Stage five ?+ ------+ ---------+--------- + *Each stage assumes the associated GFR level has been in effect for at least three months. ?Stages 1 to 5, with or without kidney disease, indicate chronic kidney disease. Notes: Determination of stages one and two (with eGFR >59mL/min/1.73 m2) requires estimation of kidney damage for at least three months as defined by structural or functional abnormalities of the kidney, manifested by either:Pathological abnormalities or Markers of kidney damage (including abnormalities in the composition of the blood or urine or abnormalities in imaging tests). Lab Interpretation Abnormal (test code = 41944-0) [facility] 23:06:00 Test Item Value Reference Range Interpretation Comments POCT GLU (test code = 8172423599) 108 mg/dL 70-110 Lab Interpretation (test code = Normal 66549-9) [facility] - ONCE [id number] 14:22:26 Test Item Value Reference Range Interpretation Comments ABO & RH (test code A POSITIVE Performe d at [facility] = 20) Laboratory Serv [facility] [address] [place] [address]Kwhg Free: [phone] A No. [id number] IAT (test code = Negative Performed a t [facility] 1185) Laboratory Serv [facility] [address] [place] [address]Gqtf Free: [phone] A No. [id number] [facility] (NA, K, CL, CO2, GLUCOSE, BUN, CREATININE, CA)2019-12-10 11:23:00 Test Item Value Reference Range Interpretation Comments NA (test code = 140 mmol/L 135-145 4806831215) K (test code = 4.3 mmol/L 3.5-5 8762761174) CL (test code = 102 mmol/L 98-108 3896362522) CO2 TOTAL (test code = 27 mmol/L 23-31 4610773614) AGAP (test code = 2-16 1594075049) BUN (test code = 24 mg/dL 7-23 H 0878109659) GLUCOSE (test code = 133 mg/dL 70-110 H 6261414365) CREATININE (test code = 1.00 mg/dL 0.6-1.25 4641291268) CALCIUM (test code = 8.5 mg/dL 8.6-10.6 L 3329250796) eGFR Calculation mL/min/1.73m2 (Non-) (test code = 2396411762) eGFR Calculation mL/min/1.73m2 () (test code = 5932338609) AKHIL (test code = AKHIL) Association of Glomerular Filtration Rate (GFR) and Staging of Kidney Disease* + --+ --+ ------+| GFR (mL/min/1.73 m2) ?| With Kidney Damage ?| ?Without Kidney Damage+ --------+ --------+ +| ?>90 ?| ?Stage one ?| ? Normal ?+ ---+ ---+ -------+| ?60-89 ?| ?Stage two ?| ? Decreased GFR ? + --+ --+ ------+| ?30-59 ?| ?Stage three ?| ? Stage three ? + --+ --+ ------+| ?15-29 ?| ?Stage four ? | ? Stage four ?+ ---+ ---+ -------+| ?<15 (or dialysis) ? ?| ?Stage five ? | ? Stage five ?+ ---+ ---+ -------+ *Each stage assumes the associated GFR level has been in effect for at least three months. ?Stages 1 to 5, with or without kidney disease, indicate chronic kidney disease. Notes: Determination of stages one and two (with eGFR >59mL/min/1.73 m2) requires estimation of kidney damage for at least three months as defined by structural or functional abnormalities of the kidney, manifested by either:Pathological abnormalities or Markers of kidney damage (including abnormalities in the composition of the blood or urine or abnormalities in imaging tests). Lab Interpretation Abnormal (test code = 89074-7) [facility] WITH [id number] 10:22:00 Test Item Value Reference Range Interpretation Comments WBC (test code = See_Comment [Automated 6690-2) message] The sy stem which generated this result transmitted reference range : 4.20 - 10.70 10*3/?L. The reference range was not used to interpret this result as normal/abnormal . RBC (test code = See_Comment L [Automated 789-8) message] The sy stem which generated this result transmitted reference range : 4.26 - 5.52 10*6/?L. The reference range was not used to interpret this result as normal/abnormal . HGB (test code = 9.0 g/dL 12.2-16.4 L 718-7) HCT (test code = 29.8 % 38.4-49.3 L 4544-3) MCV (test code = 75.8 fL 81.7-95.6 L 787-2) MCH (test code = 22.9 pg 26.1-32.7 L 785-6) MCHC (test code = 30.2 g/dL 31.2-35 L 786-4) RDW-SD (test code = 49.0 fL 38.5-51.6 26937-5) RDW-CV (test code = 17.5 % 12.1-15.4 H 788-0) PLT (test code = See_Comment [Automated 777-3) message] The sy stem which generated this result transmitted reference range : 150 - 328 10*3/ ?L. The reference r jesus was not used to interpret this result as normal/abnormal . MPV (test code = 10.0 fL 9.8-13 47050-8) NRBC/100 WBC (test See_Comment [Automat ed code = 0495529212) message] The system which generated this result transmitted reference range : 0.0 - 10.0 /100 WBCs. The refer ence range was not u sed to interpret th is result as normal/abnormal . NRBC x10^3 (test code <0.01 See_Comment [Auto mated = 2690783739) message] The s ystem which generated this result transmitted reference range : 10*3/?L. The reference range was not used to interpret this result as normal/abnormal . GRAN MAT (NEUT) % 67.5 % (test code = 770-8) IMM GRAN % (test code 0.30 % = 0033765275) LYMPH % (test code = 19.6 % 736-9) MONO % (test code = 8.5 % 5905-5) EOS % (test code = 3.7 % 713-8) BASO % (test code = 0.4 % 706-2) GRAN MAT x10^3(ANC) 4.79 10*3/uL 1.99-6.95 (test code = 4979906572) IMM GRAN x10^3 (test <0.03 0-0.06 code = 2201821299) LYMPH x10^3 (test code 1.39 10*3/uL 1.09-3.23 = 731-0) MONO x10^3 (test code 0.60 10*3/uL 0.36-1.02 = 742-7) EOS x10^3 (test code = 0.26 10*3/uL 0.06-0.53 711-2) BASO x10^3 (test code 0.03 10*3/uL 0.01-0.09 = 704-7) Lab Interpretation Abnormal (test code = 97080-4) [facility] 03:03:00 Test Item Value Reference Range Interpretation Comments POCT GLU (test code = 5399654933) 166 mg/dL 70-110 H Lab Interpretation (test code = Abnormal 51034-7) [facility] NOW RAPID TESTING)2019-12-09 23:07:00 Test Item Value Reference Range Interpretation Comments SARS-CoV-2 Rapid ID NOW Not Detected Not Detected (test code = 51503-5) AKHIL (test code = AKHIL) ID NOW COVID-19 Assay is an isothermal nucleic acid amplification test intended for the qualitative detection of nucleic acid from SARS-CoV-2 viral RNA in nasopharyngeal (WEB MARKETING ANALYST) specimens. It is used under Emergency Use Authorization (EUA) by FDA. The limit of detection (LOD) of the assay is 125 Genome Equivalents/mL. A positive result is indicative of the presence of SARS-CoV-2 RNA. ?Clinical correlation with patient history and other diagnostic information is necessary to determine patient infection status. A negative (Not Detected) result does not preclude SARS-CoV-2 infection. In patients with clinical symptoms and other tests that are consistent with SARS-CoV-2 infection, negative results should be treated as presumptive negative and a new specimen should be tested with alternative PCR molecular test. Invalid: Please collect a new specimen for repeat patient testing if clinically indicated. Lab Interpretation Normal (test code = 32072-3) [facility] GLUCOSE (AUTOMATED)2019-12-09 22:29:00 Test Item Value Reference Range Interpretation Comments POCT GLU (test code = 4772958705) 156 mg/dL 70-110 H Lab Interpretation (test code = Abnormal 33984-8) [facility] GLUCOSE (AUTOMATED)2019-12-09 17:19:00 Test Item Value Reference Range Interpretation Comments POCT GLU (test code = 3572363718) 174 mg/dL 70-110 H Lab Interpretation (test code = Abnormal 38452-5) [facility] GLUCOSE (AUTOMATED)2019-12-09 13:47:00 Test Item Value Reference Range Interpretation Comments POCT GLU (test code = 2442525215) 111 mg/dL 70-110 H Lab Interpretation (test code = Abnormal 16765-6) [facility] (NA, K, CL, CO2, GLUCOSE, BUN, CREATININE, CA)2019-12-09 13:23:00 Test Item Value Reference Range Interpretation Comments NA (test code = 140 mmol/L 135-145 9944226474) K (test code = 4.6 mmol/L 3.5-5 4273715148) CL (test code = 103 mmol/L 98-108 4927739882) CO2 TOTAL (test code = 30 mmol/L 23-31 9043061596) AGAP (test code = 2-16 2383396053) BUN (test code = 21 mg/dL 7-23 8515368971) GLUCOSE (test code = 110 mg/dL 70-110 8588395405) CREATININE (test code 1.12 mg/dL 0.6-1.25 = 4256008827) CALCIUM (test code = 8.8 mg/dL 8.6-10.6 8649236740) eGFR Calculation mL/min/1.73m2 (Non-) (test code = 0289803494) eGFR Calculation mL/min/1.73m2 () (test code = 3720639110) AKHIL (test code = AKHIL) Association of Glomerular Filtration Rate (GFR) and Staging of Kidney Disease* + -+ + ---+| GFR (mL/min/1.73 m2) ?| With Kidney Damage ?| ?Without Kidney Damage+ -------+ ------+ ---------+| ?>90 ?| ?Stage one ?| ? Normal ?+ --+ -+ ----+| ?60-89 ?| ?Stage two ?| ? Decreased GFR ? + -+ + ---+| ?30-59 ?| ?Stage three ?| ? Stage three ? + -+ + ---+| ?15-29 ?| ?Stage four ? | ? Stage four ?+ --+ -+ ----+| ?<15 (or dialysis) ? ?| ?Stage five ? | ? Stage five ?+ --+ -+ ----+ *Each stage assumes the associated GFR level has been in effect for at least three months. ?Stages 1 to 5, with or without kidney disease, indicate chronic kidney disease. Notes: Determination of stages one and two (with eGFR >59mL/min/1.73 m2) requires estimation of kidney damage for at least three months as defined by structural or functional abnormalities of the kidney, manifested by either:Pathological abnormalities or Markers of kidney damage (including abnormalities in the composition of the blood or urine or abnormalities in imaging tests). [facility] WITH [id number] 13:17:00 Test Item Value Reference Range Interpretation Comments WBC (test code = See_Comment [Automated 1556-2) message] The sy stem which generated this result transmitted reference range : 4.20 - 10.70 10*3/?L. The reference range was not used to interpret this result as normal/abnormal . RBC (test code = See_Comment L [Automated 886-8) message] The sy stem which generated this result transmitted reference range : 4.26 - 5.52 10*6/?L. The reference range was not used to interpret this result as normal/abnormal . HGB (test code = 9.2 g/dL 12.2-16.4 L 718-7) HCT (test code = 31.0 % 38.4-49.3 L 4544-3) MCV (test code = 76.4 fL 81.7-95.6 L 787-2) MCH (test code = 22.7 pg 26.1-32.7 L 785-6) MCHC (test code = 29.7 g/dL 31.2-35 L 786-4) RDW-SD (test code = 48.9 fL 38.5-51.6 32131-2) RDW-CV (test code = 17.6 % 12.1-15.4 H 788-0) PLT (test code = See_Comment [Automated 777-3) message] The sy stem which generated this result transmitted reference range : 150 - 328 10*3/ ?L. The reference r jesus was not used to interpret this result as normal/abnormal . MPV (test code = 10.0 fL 9.8-13 36267-2) NRBC/100 WBC (test See_Comment [Automat ed code = 3506530143) message] The system which generated this result transmitted reference range : 0.0 - 10.0 /100 WBCs. The refer ence range was not u sed to interpret th is result as normal/abnormal . NRBC x10^3 (test code <0.01 See_Comment [Auto mated = 6853354272) message] The s ystem which generated this result transmitted reference range : 10*3/?L. The reference range was not used to interpret this result as normal/abnormal . GRAN MAT (NEUT) % 62.3 % (test code = 770-8) IMM GRAN % (test code 0.30 % = 5659725551) LYMPH % (test code = 24.3 % 736-9) MONO % (test code = 9.2 % 5905-5) EOS % (test code = 3.6 % 713-8) BASO % (test code = 0.3 % 706-2) GRAN MAT x10^3(ANC) 3.81 10*3/uL 1.99-6.95 (test code = 9217696500) IMM GRAN x10^3 (test <0.03 0-0.06 code = 2871879221) LYMPH x10^3 (test code 1.49 10*3/uL 1.09-3.23 = 731-0) MONO x10^3 (test code 0.56 10*3/uL 0.36-1.02 = 742-7) EOS x10^3 (test code = 0.22 10*3/uL 0.06-0.53 711-2) BASO x10^3 (test code <0.03 0.01-0.09 = 704-7) Lab Interpretation Abnormal (test code = 49669-5) [facility] CULTURE [id number] 07:01:00 Test Item Value Reference Range Interpretation Comments Blood Culture-Aerobic No organisms No growth Previo us (test code = 46825-7) isolated prelim inary verified result was Culture In Progress on 12/04/2019 at 05 01 CDTPrevious preliminary verified result was No growth a t 24 hours on 12/05/2019 at 02 01 CDTPrevious preliminary verified result was No growth a t 48 hours on 12/06/2019 at 02 01 CDTPrevious preliminary verified result was No growth a t 72 hours on 12/07/2019 at 02 01 CDT Blood No organisms No growth Previous Culture-Anaerobic isolated preliminar y (test code = 21054-5) verifi ed result was Culture In Progress on 12/04/2019 at 05 01 CDTPrevious preliminary verified result was No growth a t 24 hours on 12/05/2019 at 02 01 CDTPrevious preliminary verified result was No growth a t 48 hours on 12/06/2019 at 02 01 CDTPrevious preliminary verified result was No growth a t 72 hours on 12/07/2019 at 02 01 CDT Lab Interpretation Normal (test code = 84955-9) [facility] CULTURE [id number] 07:01:00 Test Item Value Reference Range Interpretation Comments Blood Culture-Aerobic No organisms No growth Previo us (test code = 28951-0) isolated prelim inary verified result was Culture In Progress on 12/04/2019 at 05 01 CDTPrevious preliminary verified result was No growth a t 24 hours on 12/05/2019 at 02 01 CDTPrevious preliminary verified result was No growth a t 48 hours on 12/06/2019 at 02 01 CDTPrevious preliminary verified result was No growth a t 72 hours on 12/07/2019 at 02 01 CDT Blood No organisms No growth Previous Culture-Anaerobic isolated preliminar y (test code = 64108-5) verifi ed result was Culture In Progress on 12/04/2019 at 05 01 CDTPrevious preliminary verified result was No growth a t 24 hours on 12/05/2019 at 02 01 CDTPrevious preliminary verified result was No growth a t 48 hours on 12/06/2019 at 02 01 CDTPrevious preliminary verified result was No growth a t 72 hours on 12/07/2019 at 02 01 CDT Lab Interpretation Normal (test code = 96664-3) [facility] GLUCOSE (AUTOMATED)2019-12-09 03:46:00 Test Item Value Reference Range Interpretation Comments POCT GLU (test code = 8470910388) 210 mg/dL 70-110 H Lab Interpretation (test code = Abnormal 00368-9) [facility] GLUCOSE (AUTOMATED)2019-12-08 23:59:00 Test Item Value Reference Range Interpretation Comments POCT GLU (test code = 6183955264) 137 mg/dL 70-110 H Lab Interpretation (test code = Abnormal 14239-6) [facility] GLUCOSE (AUTOMATED)2019-12-08 17:12:00 Test Item Value Reference Range Interpretation Comments POCT GLU (test code = 9951768631) 146 mg/dL 70-110 H Lab Interpretation (test code = Abnormal 29209-2) [facility] GLUCOSE (AUTOMATED)2019-12-08 13:44:00 Test Item Value Reference Range Interpretation Comments POCT GLU (test code = 4298204246) 130 mg/dL 70-110 H Lab Interpretation (test code = Abnormal 55319-8) [facility] METABOLIC PANEL (NA, K, CL, CO2, GLUCOSE, BUN, CREATININE, CA)2019-12-08 11:26:00 Test Item Value Reference Range Interpretation Comments NA (test code = 137 mmol/L 135-145 8528596709) K (test code = 4.3 mmol/L 3.5-5 4891997032) CL (test code = 104 mmol/L 98-108 8593366271) CO2 TOTAL (test code = 28 mmol/L 23-31 8387326620) AGAP (test code = 2-16 8883480265) BUN (test code = 28 mg/dL 7-23 H 9503463513) GLUCOSE (test code = 105 mg/dL 70-110 5470542347) CREATININE (test code = 1.04 mg/dL 0.6-1.25 7356134818) CALCIUM (test code = 8.6 mg/dL 8.6-10.6 7299749141) eGFR Calculation mL/min/1.73m2 (Non-) (test code = 3226085950) eGFR Calculation mL/min/1.73m2 () (test code = 1339038072) AKHIL (test code = AKHIL) Association of Glomerular Filtration Rate (GFR) and Staging of Kidney Disease* + --+ --+ ------+| GFR (mL/min/1.73 m2) ?| With Kidney Damage ?| ?Without Kidney Damage+ --------+ --------+ +| ?>90 ?| ?Stage one ?| ? Normal ?+ ---+ ---+ -------+| ?60-89 ?| ?Stage two ?| ? Decreased GFR ? + --+ --+ ------+| ?30-59 ?| ?Stage three ?| ? Stage three ? + --+ --+ ------+| ?15-29 ?| ?Stage four ? | ? Stage four ?+ ---+ ---+ -------+| ?<15 (or dialysis) ? ?| ?Stage five ? | ? Stage five ?+ ---+ ---+ -------+ *Each stage assumes the associated GFR level has been in effect for at least three months. ?Stages 1 to 5, with or without kidney disease, indicate chronic kidney disease. Notes: Determination of stages one and two (with eGFR >59mL/min/1.73 m2) requires estimation of kidney damage for at least three months as defined by structural or functional abnormalities of the kidney, manifested by either:Pathological abnormalities or Markers of kidney damage (including abnormalities in the composition of the blood or urine or abnormalities in imaging tests). Lab Interpretation Abnormal (test code = 17379-5) [facility] WITH [id number] 11:15:00 Test Item Value Reference Range Interpretation Comments WBC (test code = See_Comment [Automated 3390-2) message] The sy stem which generated this result transmitted reference range : 4.20 - 10.70 10*3/?L. The reference range was not used to interpret this result as normal/abnormal . RBC (test code = See_Comment L [Automated 789-8) message] The sy stem which generated this result transmitted reference range : 4.26 - 5.52 10*6/?L. The reference range was not used to interpret this result as normal/abnormal . HGB (test code = 8.8 g/dL 12.2-16.4 L 718-7) HCT (test code = 29.1 % 38.4-49.3 L 4544-3) MCV (test code = 75.8 fL 81.7-95.6 L 787-2) MCH (test code = 22.9 pg 26.1-32.7 L 785-6) MCHC (test code = 30.2 g/dL 31.2-35 L 786-4) RDW-SD (test code = 48.7 fL 38.5-51.6 80809-8) RDW-CV (test code = 17.8 % 12.1-15.4 H 788-0) PLT (test code = See_Comment [Automated 777-3) message] The sy stem which generated this result transmitted reference range : 150 - 328 10*3/ ?L. The reference r jesus was not used to interpret this result as normal/abnormal . MPV (test code = 10.3 fL 9.8-13 95825-1) NRBC/100 WBC (test See_Comment [Automat ed code = 4907130934) message] The system which generated this result transmitted reference range : 0.0 - 10.0 /100 WBCs. The refer ence range was not u sed to interpret th is result as normal/abnormal . NRBC x10^3 (test code <0.01 See_Comment [Auto mated = 3627947780) message] The s ystem which generated this result transmitted reference range : 10*3/?L. The reference range was not used to interpret this result as normal/abnormal . GRAN MAT (NEUT) % 64.1 % (test code = 770-8) IMM GRAN % (test code 0.50 % = 6529456666) LYMPH % (test code = 22.8 % 736-9) MONO % (test code = 8.9 % 5905-5) EOS % (test code = 3.4 % 713-8) BASO % (test code = 0.3 % 706-2) GRAN MAT x10^3(ANC) 4.11 10*3/uL 1.99-6.95 (test code = 4594141811) IMM GRAN x10^3 (test 0.03 10*3/uL 0-0.06 code = 8713370120) LYMPH x10^3 (test code 1.46 10*3/uL 1.09-3.23 = 731-0) MONO x10^3 (test code 0.57 10*3/uL 0.36-1.02 = 742-7) EOS x10^3 (test code = 0.22 10*3/uL 0.06-0.53 711-2) BASO x10^3 (test code <0.03 0.01-0.09 = 704-7) Lab Interpretation Abnormal (test code = 61374-6) [facility] GLUCOSE (AUTOMATED)2019-12-08 03:42:00 Test Item Value Reference Range Interpretation Comments POCT GLU (test code = 6274749997) 170 mg/dL 70-110 H Lab Interpretation (test code = Abnormal 88209-1) [facility] GLUCOSE (AUTOMATED)2019-12-07 22:32:00 Test Item Value Reference Range Interpretation Comments POCT GLU (test code = 0096808222) 124 mg/dL 70-110 H Lab Interpretation (test code = Abnormal 15539-2) [facility] GLUCOSE (AUTOMATED)2019-12-07 17:03:00 Test Item Value Reference Range Interpretation Comments POCT GLU (test code = 2777352615) 138 mg/dL 70-110 H Lab Interpretation (test code = Abnormal 29312-4) [facility] GLUCOSE (AUTOMATED)2019-12-07 13:46:00 Test Item Value Reference Range Interpretation Comments POCT GLU (test code = 8884379760) 111 mg/dL 70-110 H Lab Interpretation (test code = Abnormal 37548-4) [facility] - Draw immediately prior to the 4TH dose, but, no more than 60 minutes before the 4TH dose. 2019-12-07 07:30:00 Test Item Value Reference Range Interpretation Comments VANCO TROUGH (test code 16.1 ug/mL 10-20 = 5021672241) AKHIL (test code = AKHIL) Toxic Range: ?>20 ug/mL 15-20 ug/mL is recommended for severe infection or when Vancomycin BHAVANA is greater than or equal to 2. Lab Interpretation (test Normal code = 29162-7) [facility] METABOLIC PANEL (NA, K, CL, CO2, GLUCOSE, BUN, CREATININE, CA)2019-12-07 06:59:00 Test Item Value Reference Range Interpretation Comments NA (test code = 139 mmol/L 135-145 8361133243) K (test code = 4.3 mmol/L 3.5-5 8797981775) CL (test code = 104 mmol/L 98-108 6304044147) CO2 TOTAL (test code = 27 mmol/L 23-31 9342180877) AGAP (test code = 2-16 6552547864) BUN (test code = 25 mg/dL 7-23 H 4450790895) GLUCOSE (test code = 127 mg/dL 70-110 H 6092860846) CREATININE (test code = 1.01 mg/dL 0.6-1.25 4311875138) CALCIUM (test code = 8.4 mg/dL 8.6-10.6 L 7105739085) eGFR Calculation mL/min/1.73m2 (Non-) (test code = 9872062654) eGFR Calculation mL/min/1.73m2 () (test code = 9767209001) AKHIL (test code = AKHIL) Association of Glomerular Filtration Rate (GFR) and Staging of Kidney Disease* + --+ --+ ------+| GFR (mL/min/1.73 m2) ?| With Kidney Damage ?| ?Without Kidney Damage+ --------+ --------+ +| ?>90 ?| ?Stage one ?| ? Normal ?+ ---+ ---+ -------+| ?60-89 ?| ?Stage two ?| ? Decreased GFR ? + --+ --+ ------+| ?30-59 ?| ?Stage three ?| ? Stage three ? + --+ --+ ------+| ?15-29 ?| ?Stage four ? | ? Stage four ?+ ---+ ---+ -------+| ?<15 (or dialysis) ? ?| ?Stage five ? | ? Stage five ?+ ---+ ---+ -------+ *Each stage assumes the associated GFR level has been in effect for at least three months. ?Stages 1 to 5, with or without kidney disease, indicate chronic kidney disease. Notes: Determination of stages one and two (with eGFR >59mL/min/1.73 m2) requires estimation of kidney damage for at least three months as defined by structural or functional abnormalities of the kidney, manifested by either:Pathological abnormalities or Markers of kidney damage (including abnormalities in the composition of the blood or urine or abnormalities in imaging tests). Lab Interpretation Abnormal (test code = 83916-7) [facility] WITH [id number] 06:36:00 Test Item Value Reference Range Interpretation Comments WBC (test code = See_Comment [Automated 9790-2) message] The sy stem which generated this result transmitted reference range : 4.20 - 10.70 10*3/?L. The reference range was not used to interpret this result as normal/abnormal . RBC (test code = See_Comment L [Automated 789-8) message] The sy stem which generated this result transmitted reference range : 4.26 - 5.52 10*6/?L. The reference range was not used to interpret this result as normal/abnormal . HGB (test code = 8.5 g/dL 12.2-16.4 L 718-7) HCT (test code = 28.0 % 38.4-49.3 L 4544-3) MCV (test code = 75.9 fL 81.7-95.6 L 787-2) MCH (test code = 23.0 pg 26.1-32.7 L 785-6) MCHC (test code = 30.4 g/dL 31.2-35 L 786-4) RDW-SD (test code = 49.1 fL 38.5-51.6 28253-0) RDW-CV (test code = 17.9 % 12.1-15.4 H 788-0) PLT (test code = See_Comment [Automated 777-3) message] The sy stem which generated this result transmitted reference range : 150 - 328 10*3/ ?L. The reference r jesus was not used to interpret this result as normal/abnormal . MPV (test code = 10.5 fL 9.8-13 64004-8) NRBC/100 WBC (test See_Comment [Automat ed code = 6181492765) message] The system which generated this result transmitted reference range : 0.0 - 10.0 /100 WBCs. The refer ence range was not u sed to interpret th is result as normal/abnormal . NRBC x10^3 (test code <0.01 See_Comment [Auto mated = 7985930127) message] The s ystem which generated this result transmitted reference range : 10*3/?L. The reference range was not used to interpret this result as normal/abnormal . GRAN MAT (NEUT) % 71.9 % (test code = 770-8) IMM GRAN % (test code 0.30 % = 9194097416) LYMPH % (test code = 15.9 % 736-9) MONO % (test code = 8.9 % 5905-5) EOS % (test code = 2.7 % 713-8) BASO % (test code = 0.3 % 706-2) GRAN MAT x10^3(ANC) 4.50 10*3/uL 1.99-6.95 (test code = 8302424579) IMM GRAN x10^3 (test <0.03 0-0.06 code = 0854298981) LYMPH x10^3 (test code 1.00 10*3/uL 1.09-3.23 L = 731-0) MONO x10^3 (test code 0.56 10*3/uL 0.36-1.02 = 742-7) EOS x10^3 (test code = 0.17 10*3/uL 0.06-0.53 711-2) BASO x10^3 (test code <0.03 0.01-0.09 = 704-7) Lab Interpretation Abnormal (test code = 38186-9) [facility] 02:39:00 Test Item Value Reference Range Interpretation Comments POCT GLU (test code = 8378503835) 149 mg/dL 70-110 H Lab Interpretation (test code = Abnormal 55404-4) [facility] 01:37:00 Test Item Value Reference Range Interpretation Comments POCT GLU (test code = 4415338646) 161 mg/dL 70-110 H Lab Interpretation (test code = Abnormal 96886-9) [facility] [id number] 22:51:00 Test Item Value Reference Range Interpretation Comments FERRITIN (test code = 12.7 ng/mL 18-464 L 2156653707) AKHIL (test code = AKHIL) Biotin has been reported to cause a negative bias, interpret results relative to patient's use of biotin. Lab Interpretation (test Abnormal code = 16406-2) [facility] [id number] 22:26:00 Test Item Value Reference Range Interpretation Comments IRON (test code = 1785396604) 21 ug/dL 50-160 L TIBC (test code = 4043468531) 342 ug/dL 250-410 % FE SAT (test code = 0999631923) 6 % 20-50 L Lab Interpretation (test code = Abnormal 30775-6) [facility] WITHOUT [id number] 20:52:00 Test Item Value Reference Range Interpretation Comments WBC (test code = 6690-2) See_Comment [A utomated message] The system [employer] generated this result transmit sapna reference range : 4.20 - 10.70 10*3/?L. The reference range was not used to interpret this result as normal/abnormal . RBC (test code = 789-8) See_Comment L [Au tomated message] The system [employer] generated this result transmit sapna reference range : 4.26 - 5.52 10* 6/?L. The reference r jesus was not used to interpret this result as normal/abnormal . HGB (test code = 718-7) 8.6 g/dL 12.2-16.4 L HCT (test code = 4544-3) 28.9 % 38.4-49.3 L MCH (test code = 785-6) 23.0 pg 26.1-32.7 L MCV (test code = 787-2) 77.3 fL 81.7-95.6 L MCHC (test code = 786-4) 29.8 g/dL 31.2-35 L PLT (test code = 777-3) See_Comment [Au tomated message] The system [employer] generated this result transmit sapna reference range : 150 - 328 10*3/?L. The reference range was not used to interpret this result as normal/abnormal . MPV (test code = 10.7 fL 9.8-13 93063-6) RDW-CV (test code = 17.8 % 12.1-15.4 H 788-0) RDW-SD (test code = 49.7 fL 38.5-51.6 98642-0) NRBC x10^3 (test code = <0.01 See_Comment [Au tomated message] 8235743681) The system [employer] generated this result transmit sapna reference range : 10*3/?L. The reference range was not used to interpret this result as normal/abnormal . NRBC/100 WBC (test code See_Comment [Au tomated message] = 6553121102) The system [employer] generated this result transmit sapna reference range : 0.0 - 10.0 /100 WBC s. The reference r jesus was not used to interpret this result as normal/abnormal . 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 Changes of partial second ray amputation are seen at the level of theproximal phalanx base. A soft tissue defect overlies the amputation site.Heterogeneous hyperintense PD/STIR signal with corresponding hypointense T 1signal intensity is seen in the second toe proximal phalangeal remnant.Marrow edema without corresponding T1 hypointensity is seen at the firstthrough fifth metatarsal heads. Degenerative cystic changes are seen aboutthe great toe interphalangeal joint. Heterogeneous geographic ,wellmarginated hyperintense T2 lesions in the first, third and fifth distalmetatarsals are suggestive of bone infarcts. Diffuse muscle edema and fatty atrophy is observed. No organized fluid collection is seen, although evaluation is limitedwithout IV contrast. [facility], Radiant Results Inft User - 12/06/2019 12:53 PM CDTEXAM:MRI RIGHT FOOTHISTORY: Non-healing R foot amputation site wound with signs of drygangrene COMPARISON: Radiographs 12/03/2019TECHNIQUE AND FINDINGS:3T OR 1.5T multiplanar multiweighted MR imaging of the right foot(forefoot) was performed without IV contrast.Changes of partial second ray amputation are seen at the level of theproximal phalanx base. A soft tissue defect overlies the amputation site.Heterogeneous hyperintense PD/STIR signal with corresponding hypointense Y3jbfhai intensity is seen in the second toe proximal phalangeal remnant.Marrow edema without corresponding T1 hypointensity is seen atthe firstthrough fifth metatarsal heads. Degenerative cystic changes are seen aboutthe great toe interphalangeal joint. Heterogeneous geographic ,wellmarginated hyperintense T2 lesions in the first, third and fifth distalmetatarsals are suggestive of bone infarcts.Diffuse muscle edema and fatty atrophy is observed.No organized fluid collection is seen, although evaluation is limitedwithout IV contrast.IMPRESSIONFindings are compatible with osteomyelitis of the second toe proximalphalanx remnant.Multi focal metatarsal bone infarcts.[facility] 13:49:00 Test Item Value Reference Range Interpretation Comments POCT GLU (test code = 2967579174) 102 mg/dL 70-110 Lab Interpretation (test code = Normal 30736-5) [facility] (NA, K, CL, CO2, GLUCOSE, BUN, CREATININE, CA)2019-12-06 11:09:00 Test Item Value Reference Range Interpretation Comments NA (test code = 139 mmol/L 135-145 6090080889) K (test code = 4.0 mmol/L 3.5-5 5758106944) CL (test code = 106 mmol/L 98-108 4760158523) CO2 TOTAL (test code = 27 mmol/L 23-31 5189731651) AGAP (test code = 2-16 8282366675) BUN (test code = 25 mg/dL 7-23 H 9575978287) GLUCOSE (test code = 106 mg/dL 70-110 0334290070) CREATININE (test code = 1.06 mg/dL 0.6-1.25 3474486383) CALCIUM (test code = 8.2 mg/dL 8.6-10.6 L 2563580424) eGFR Calculation mL/min/1.73m2 (Non-) (test code = 8034948974) eGFR Calculation mL/min/1.73m2 () (test code = 2281816190) AKHIL (test code = AKHIL) Association of Glomerular Filtration Rate (GFR) and Staging of Kidney Disease* + --+ --+ ------+| GFR (mL/min/1.73 m2) ?| With Kidney Damage ?| ?Without Kidney Damage+ --------+ --------+ +| ?>90 ?| ?Stage one ?| ? Normal ?+ ---+ ---+ -------+| ?60-89 ?| ?Stage two ?| ? Decreased GFR ? + --+ --+ ------+| ?30-59 ?| ?Stage three ?| ? Stage three ? + --+ --+ ------+| ?15-29 ?| ?Stage four ? | ? Stage four ?+ ---+ ---+ -------+| ?<15 (or dialysis) ? ?| ?Stage five ? | ? Stage five ?+ ---+ ---+ -------+ *Each stage assumes the associated GFR level has been in effect for at least three months. ?Stages 1 to 5, with or without kidney disease, indicate chronic kidney disease. Notes: Determination of stages one and two (with eGFR >59mL/min/1.73 m2) requires estimation of kidney damage for at least three months as defined by structural or functional abnormalities of the kidney, manifested by either:Pathological abnormalities or Markers of kidney damage (including abnormalities in the composition of the blood or urine or abnormalities in imaging tests). Lab Interpretation Abnormal (test code = 18221-6) [facility] WITH [id number] 10:56:00 Test Item Value Reference Range Interpretation Comments WBC (test code = See_Comment [Automated 6690-2) message] The sy stem which generated this result transmitted reference range : 4.20 - 10.70 10*3/?L. The reference range was not used to interpret this result as normal/abnormal . RBC (test code = See_Comment L [Automated 789-8) message] The sy stem which generated this result transmitted reference range : 4.26 - 5.52 10*6/?L. The reference range was not used to interpret this result as normal/abnormal . HGB (test code = 8.4 g/dL 12.2-16.4 L 718-7) HCT (test code = 28.1 % 38.4-49.3 L 4544-3) MCV (test code = 76.8 fL 81.7-95.6 L 787-2) MCH (test code = 23.0 pg 26.1-32.7 L 785-6) MCHC (test code = 29.9 g/dL 31.2-35 L 786-4) RDW-SD (test code = 50.2 fL 38.5-51.6 46427-4) RDW-CV (test code = 18.0 % 12.1-15.4 H 788-0) PLT (test code = See_Comment [Automated 777-3) message] The sy stem which generated this result transmitted reference range : 150 - 328 10*3/ ?L. The reference r jesus was not used to interpret this result as normal/abnormal . MPV (test code = 10.3 fL 9.8-13 07537-7) NRBC/100 WBC (test See_Comment [Automat ed code = 7654723687) message] The system which generated this result transmitted reference range : 0.0 - 10.0 /100 WBCs. The refer ence range was not u sed to interpret th is result as normal/abnormal . NRBC x10^3 (test code <0.01 See_Comment [Auto mated = 9435429338) message] The s ystem which generated this result transmitted reference range : 10*3/?L. The reference range was not used to interpret this result as normal/abnormal . GRAN MAT (NEUT) % 64.5 % (test code = 770-8) IMM GRAN % (test code 0.50 % = 8045835020) LYMPH % (test code = 21.7 % 736-9) MONO % (test code = 9.9 % 5905-5) EOS % (test code = 3.1 % 713-8) BASO % (test code = 0.3 % 706-2) GRAN MAT x10^3(ANC) 4.23 10*3/uL 1.99-6.95 (test code = 2572794123) IMM GRAN x10^3 (test 0.03 10*3/uL 0-0.06 code = 7461611085) LYMPH x10^3 (test code 1.42 10*3/uL 1.09-3.23 = 731-0) MONO x10^3 (test code 0.65 10*3/uL 0.36-1.02 = 742-7) EOS x10^3 (test code = 0.20 10*3/uL 0.06-0.53 711-2) BASO x10^3 (test code <0.03 0.01-0.09 = 704-7) Lab Interpretation Abnormal (test code = 86024-7) [facility] GLUCOSE (AUTOMATED)2019-12-06 01:53:00 Test Item Value Reference Range Interpretation Comments POCT GLU (test code = 3482328752) 140 mg/dL 70-110 H Lab Interpretation (test code = Abnormal 43430-3) [facility] GLUCOSE (AUTOMATED)2019-12-05 22:13:00 Test Item Value Reference Range Interpretation Comments POCT GLU (test code = 2064306081) 197 mg/dL 70-110 H Lab Interpretation (test code = Abnormal 14846-1) [facility] - Draw within 30 minutes prior to 4TH dose.2019-12-05 19:24:00 Test Item Value Reference Range Interpretation Comments VANCO TROUGH (test code 15.2 ug/mL 10-20 = 0138206596) AKHIL (test code = AKHIL) Toxic Range: ?>20 ug/mL 15-20 ug/mL is recommended for severe infection or when Vancomycin BHAVANA is greater than or equal to 2. Lab Interpretation (test Normal code = 39705-9) [facility] GLUCOSE (AUTOMATED)2019-12-05 18:46:00 Test Item Value Reference Range Interpretation Comments POCT GLU (test code = 6705949386) 146 mg/dL 70-110 H Lab Interpretation (test code = Abnormal 70202-2) [facility] [id number] 16:21:00 Test Item Value Reference Range Interpretation Comments CRP (test code = 5387604126) 2.1 mg/dL <0.8 H Lab Interpretation (test code = Abnormal 78787-2) [facility] GLUCOSE (AUTOMATED)2019-12-05 13:10:00 Test Item Value Reference Range Interpretation Comments POCT GLU (test code = 2450859185) 108 mg/dL 70-110 Lab Interpretation (test code = Normal 97027-0) [facility] GLUCOSE (AUTOMATED)2019-12-05 01:48:00 Test Item Value Reference Range Interpretation Comments POCT GLU (test code = 6985489409) 144 mg/dL 70-110 H Lab Interpretation (test code = Abnormal 53916-1) [facility] GLUCOSE (AUTOMATED)2019-12-04 22:38:00 Test Item Value Reference Range Interpretation Comments POCT GLU (test code = 238 mg/dL 70-110 H Notifi ed Provider [id number]) Lab Interpretation (test Abnormal code = 16290-3) [facility] GLUCOSE (AUTOMATED)2019-12-04 17:58:00 Test Item Value Reference Range Interpretation Comments POCT GLU (test code = 131 mg/dL 70-110 H Notifi ed Provider [id number]) Lab Interpretation (test Abnormal code = 44790-5) [facility] GLUCOSE (AUTOMATED)2019-12-04 13:57:00 Test Item Value Reference Range Interpretation Comments POCT GLU (test code = 3811234724) 108 mg/dL 70-110 Lab Interpretation (test code = Normal 25936-3) [facility] [id number] 11:35:00 Test Item Value Reference Range Interpretation Comments ESR (test code = See_Comment H [Automated message] [id number]) The system 1001 Menus generated this result transmitted ref erence range: 0 - 10 m m/HR. The reference r jesus was not used to interpret this result as normal/abnor mal. Lab Interpretation (test Abnormal code = 16103-6) [facility]2019-12-04 08:57:00 Test Item Value Reference Range Interpretation Comments HGB A1C (test code = 4548-4) 6.5 % 4-6 H Lab Interpretation (test code = Abnormal 32903-4) [facility] NOW RAPID TESTING)2019-12-04 03:20:00 Test Item Value Reference Range Interpretation Comments SARS-CoV-2 Rapid ID NOW Not Detected Not Detected (test code = 89296-9) AKHIL (test code = AKHIL) ID NOW COVID-19 Assay is an isothermal nucleic acid amplification test intended for the qualitative detection of nucleic acid from SARS-CoV-2 viral RNA in nasopharyngeal (WEB MARKETING ANALYST) specimens. It is used under Emergency Use Authorization (EUA) by FDA. The limit of detection (LOD) of the assay is 125 Genome Equivalents/mL. A positive result is indicative of the presence of SARS-CoV-2 RNA. ?Clinical correlation with patient history and other diagnostic information is necessary to determine patient infection status. A negative (Not Detected) result does not preclude SARS-CoV-2 infection. In patients with clinical symptoms and other tests that are consistent with SARS-CoV-2 infection, negative results should be treated as presumptive negative and a new specimen should be tested with alternative PCR molecular test. Invalid: Please collect a new specimen for repeat patient testing if clinically indicated. Lab Interpretation Normal (test code = 81213-5) [facility] [id number] 23:37:45 Stable changes of second toe amputation. Interval increase soft tissue swelling surrounding the great toe withoutbony destructive change. Ulceration about the small toe. Preliminary Report Dictated byResident: Ida Howell I, Jason Nelson MD., have reviewed this study and agree with the abovereport.EXAM: XR FOOT 3+ VW RIGHT HISTORY: 84 years-old Male with toe infection COMPARISON: X-ray right foot 08/30/2019 FINDINGS: Radiographs of the right foot demonstrate changes of second ray amputationat thelevel of the proximal phalanx base. No acute bony destruction isidentified. No acute fractures or dislocations. Joint spaces are preserved.Alignment is within normal limits. Vascular calcifications are noted.Surgical clips are noted about the hindfoot and the distal leg. Mild softtissue swelling is noted about the forefoot. Interval increase of softtissue swelling involving the great toe without underlying bony erosions.Ulceration is seen about the distal margin of the small toe. [facility], Radiant Results Inft User - 12/03/2019 6:38 PM CDTEXAM: XR FOOT 3+ VW RIGHTHISTORY: 84 years-old Male with toe infection COMPARISON: X-ray right foot 08/30/2019FINDINGS: Radiographs of the right foot demonstrate changes of second ray amputationat the level of the proximal phalanx base. No acute bony destruction isidentified. No acute fractures or dislocations. Joint spaces are preserved.Alignment is within normal limits. Vascular calcifications are noted.Surgical clips are noted about the hindfoot and the distal leg. Mild softtissue swelling is noted about the forefoot. Interval increase of softtissue swelling involving the great toe without underlying bony erosions.Ulceration is seen about the distal margin of the small toe.IMPRESSIONStable changes of second toe amputation.Interval increase soft tissue swellingsurrounding the great toe withoutbony destructive change.Ulceration about the small toe.Preliminary Report Dictated by Resident: Ida Smith, Jason Nelson MD., have reviewed this study and agree with the abovereport.[facility]. METABOLIC PANEL (16395) 2019-12-03 23:06:00 Test Item Value Reference Range Interpretation Comments NA (test code = 139 mmol/L 135-145 2927859633) K (test code = 4.4 mmol/L 3.5-5 2081972691) CL (test code = 102 mmol/L 98-108 4376327871) CO2 TOTAL (test code = 24 mmol/L 23-31 3381169466) AGAP (test code = 2-16 8195624127) BUN (test code = 23 mg/dL 7-23 1585433577) GLUCOSE (test code = 127 mg/dL 70-110 H 5169035402) CREATININE (test code = 0.97 mg/dL 0.6-1.25 4468518912) TOTAL BILI (test code = 0.4 mg/dL 0.1-1.7 1116711453) CALCIUM (test code = 9.4 mg/dL 8.6-10.6 4746630770) T PROTEIN (test code = 7.4 g/dL 6.3-8.2 2664135675) ALBUMIN (test code = 4.4 g/dL 3.5-5 1634449168) ALK PHOS (test code = 88 U/L 34-122 8883466978) ALTv (test code = 18 U/L 5-50 1742-6) AST(SGOT) (test code = 26 U/L 13-40 0285393178) eGFR Calculation mL/min/1.73m2 (Non-) (test code = 7536834068) eGFR Calculation mL/min/1.73m2 () (test code = 7185518254) AKHIL (test code = AKHIL) Association of Glomerular Filtration Rate (GFR) and Staging of Kidney Disease* + --+ --+ ------+| GFR (mL/min/1.73 m2) ?| With Kidney Damage ?| ?Without Kidney Damage+ --------+ --------+ +| ?>90 ?| ?Stage one ?| ? Normal ?+ ---+ ---+ -------+| ?60-89 ?| ?Stage two ?| ? Decreased GFR ? + --+ --+ ------+| ?30-59 ?| ?Stage three ?| ? Stage three ? + --+ --+ ------+| ?15-29 ?| ?Stage four ? | ? Stage four ?+ ---+ ---+ -------+| ?<15 (or dialysis) ? ?| ?Stage five ? | ? Stage five ?+ ---+ ---+ -------+ *Each stage assumes the associated GFR level has been in effect for at least three months. ?Stages 1 to 5, with or without kidney disease, indicate chronic kidney disease. Notes: Determination of stages one and two (with eGFR >59mL/min/1.73 m2) requires estimation of kidney damage for at least three months as defined by structural or functional abnormalities of the kidney, manifested by either:Pathological abnormalities or Markers of kidney damage (including abnormalities in the composition of the blood or urine or abnormalities in imaging tests). Lab Interpretation Abnormal (test code = 09764-3) [facility] WITH [id number] 22:52:00 Test Item Value Reference Range Interpretation Comments WBC (test code = See_Comment [Automated 6690-2) message] The sy stem which generated this result transmitted reference range : 4.20 - 10.70 10*3/?L. The reference range was not used to interpret this result as normal/abnormal . RBC (test code = See_Comment [Automated 789-8) message] The sy stem which generated this result transmitted reference range : 4.26 - 5.52 10*6/?L. The reference range was not used to interpret this result as normal/abnormal . HGB (test code = 10.1 g/dL 12.2-16.4 L 718-7) HCT (test code = 33.9 % 38.4-49.3 L 4544-3) MCV (test code = 77.2 fL 81.7-95.6 L 787-2) MCH (test code = 23.0 pg 26.1-32.7 L 785-6) MCHC (test code = 29.8 g/dL 31.2-35 L 786-4) RDW-SD (test code = 49.8 fL 38.5-51.6 15322-2) RDW-CV (test code = 17.9 % 12.1-15.4 H 788-0) PLT (test code = See_Comment [Automated 777-3) message] The sy stem which generated this result transmitted reference range : 150 - 328 10*3/ ?L. The reference r jesus was not used to interpret this result as normal/abnormal . MPV (test code = 10.4 fL 9.8-13 55490-1) NRBC/100 WBC (test See_Comment [Automat ed code = 0817100466) message] The system which generated this result transmitted reference range : 0.0 - 10.0 /100 WBCs. The refer ence range was not u sed to interpret th is result as normal/abnormal . NRBC x10^3 (test code <0.01 See_Comment [Auto mated = 1254564990) message] The s ystem which generated this result transmitted reference range : 10*3/?L. The reference range was not used to interpret this result as normal/abnormal . GRAN MAT (NEUT) % 76.6 % (test code = 770-8) IMM GRAN % (test code 0.30 % = 9187617278) LYMPH % (test code = 12.7 % 736-9) MONO % (test code = 9.4 % 5905-5) EOS % (test code = 0.7 % 713-8) BASO % (test code = 0.3 % 706-2) GRAN MAT x10^3(ANC) 6.97 10*3/uL 1.99-6.95 H (test code = 0513891435) IMM GRAN x10^3 (test 0.03 10*3/uL 0-0.06 code = 2587783920) LYMPH x10^3 (test code 1.16 10*3/uL 1.09-3.23 = 731-0) MONO x10^3 (test code 0.86 10*3/uL 0.36-1.02 = 742-7) EOS x10^3 (test code = 0.06 10*3/uL 0.06-0.53 711-2) BASO x10^3 (test code 0.03 10*3/uL 0.01-0.09 = 704-7) Lab Interpretation Abnormal (test code = 21688-5) [facility] GLUCOSE (AUTOMATED)2019-09-16 22:43:00 Test Item Value Reference Range Interpretation Comments POCT GLU (test code = 9542473300) 176 mg/dL 70-110 H Lab Interpretation (test code = Abnormal 55510-2) [facility] GLUCOSE (AUTOMATED)2019-09-16 18:03:00 Test Item Value Reference Range Interpretation Comments POCT GLU (test code = 4171062370) 210 mg/dL 70-110 H Lab Interpretation (test code = Abnormal 30810-0) [facility] GLUCOSE (AUTOMATED)2019-09-16 13:48:00 Test Item Value Reference Range Interpretation Comments POCT GLU (test code = 9421469168) 146 mg/dL 70-110 H Lab Interpretation (test code = Abnormal 95536-1) [facility] GLUCOSE (AUTOMATED)2019-09-16 09:04:00 Test Item Value Reference Range Interpretation Comments POCT GLU (test code = 0631622493) 134 mg/dL 70-110 H Lab Interpretation (test code = Abnormal 43392-1) [facility] GLUCOSE (AUTOMATED)2019-09-16 04:53:00 Test Item Value Reference Range Interpretation Comments POCT GLU (test code = 5406349159) 149 mg/dL 70-110 H Lab Interpretation (test code = Abnormal 85922-5) [facility] GLUCOSE (AUTOMATED)2019-09-16 01:24:00 Test Item Value Reference Range Interpretation Comments POCT GLU (test code = 3590825976) 185 mg/dL 70-110 H Lab Interpretation (test code = Abnormal 46196-0) [facility] GLUCOSE (AUTOMATED)2019-09-15 22:54:00 Test Item Value Reference Range Interpretation Comments POCT GLU (test code = 6548784243) 216 mg/dL 70-110 H Lab Interpretation (test code = Abnormal 59344-5) [facility] ABDOMEN [id number] 21:24:28 1. ?No intra or extrahepatic biliary ductal dilatation. 2. ?Prior cholecystectomy. Preliminary Report Dictated by Resident: Alfredo Solorio I, Nydia Macias MD., have reviewed this study and agree with the abovereport.EXAM: US ABDOMEN LIMITED HISTORY: 83 years-old Male with bilious emesis . TECHNIQUE: Limited abdominal ultrasound was performed focused on thebiliary system. Main portal vein was evaluated with color Doppler imaging.Environmental Adviser images were obtained for the record. COMPARISON: 09/16/2019 abdomen x-ray FINDINGS: HEPATOBILIARY: Limited evaluation of the liver. Liver measures 16 cm inlength. No intra or extrahepatic biliary ductal dilatation. Common ductmeasures 6 mm in diameter. Patient is status post cholecystectomy.Hepatopetal flow present in the main portal vein. It measures 1.4cm in APdimension. AORTA:Abdominal aorta is normal in caliber where visualized. IVC:IVC is normal inappearance where visualized. OTHER: Pancreas is obscured due to shadowing from bowel gas. [facility], Radiant Results Inft User - 09/15/2019 4:25 PM CDTEXAM: US ABDOMEN LIMITEDHISTORY: 83 years-old Male with bilious emesis .TECHNIQUE: Limited abdominal ultrasound was performed focused on thebiliary system. Main portal vein was evaluated with color Doppler imaging.Environmental Adviser images were obtained for therecord.COMPARISON: 09/16/2019 abdomen x-rayFINDINGS: HEPATOBILIARY: Limited evaluation of the liver. Liver measures 16 cm inlength. No intra or extrahepatic biliary ductal dilatation. Common ductmeasures 6 mm in diameter. Patient is status post cholecystectomy.Hepatopetal flow present in the main portal vein. It measures 1.4 cm in APdimension.AORTA:Abdominal aorta is normal in caliber where visualized. IVC:IVC is normal in appearance where visualized. OTHER: Pancreas is obscured due to shadowing frombowel gas.IMPRESSION1. No intra or extrahepatic biliary ductal dilatation.2. Prior cholecystectomy.Preliminary Report Dictated by Resident: Alfredo Sharma, Nydia Macias MD., have reviewed this study and agree with the abovereport.[facility] 18:20:00 Test Item Value Reference Range Interpretation Comments POCT GLU (test code = 8273031121) 194 mg/dL 70-110 H Lab Interpretation (test code = Abnormal 76085-3) [facility] [id number] 15:35:08EXAM: XR KUB HISTORY: bilious emesis COMPARISON: None. FINDINGS: The bowel gas pattern is normal andno opaque stones or masses are found. ? [facility], Radiant Results Inft User - 09/15/2019 10:36 AM CDTEXAM: XR KUBHISTORY: bilious emesis COMPARISON: None.FINDINGS:The bowel gas pattern is normal and no opaque stones or masses are found.[facility] [place] (60853[facility] (ALB,T.PRO,BILI T,BU/BC,ALT,AST,ALK PHOS)2019-09-15 15:32:00 Test Item Value Reference Range Interpretation Comments TOTAL BILI (test code = 3178645137) 0.3 mg/dL 0.1-1.1 BILI UNCON (test code = 0460909103) 0.3 mg/dL 0.1-1.1 BILI CONJ (test code = 3290753758) 0.0 mg/dL 0-0.3 T PROTEIN (test code = 8861003627) 5.7 g/dL 6.3-8.2 L ALBUMIN (test code = 8388516360) 3.0 g/dL 3.5-5 L ALK PHOS (test code = 2789543020) 47 U/L 34-122 ALTv (test code = 1742-6) 15 U/L 5-50 AST(SGOT) (test code = 9470787593) 27 U/L 13-40 Lab Interpretation (test code = Abnormal 39364-4) [facility]2019-09-15 15:04:00 Test Item Value Reference Range Interpretation Comments POCT GLU (test code = 2210509307) 167 mg/dL 70-110 H Lab Interpretation (test code = Abnormal 08329-7) [facility] METABOLIC PANEL (NA, K, CL, CO2, GLUCOSE, BUN, CREATININE, CA)2019-09-15 10:52:00 Test Item Value Reference Range Interpretation Comments NA (test code = 136 mmol/L 135-145 0323445925) K (test code = 4.0 mmol/L 3.5-5 4691677609) CL (test code = 103 mmol/L 98-108 7373443115) CO2 TOTAL (test code = 28 mmol/L 23-31 2830328762) AGAP (test code = 2-16 8419686344) BUN (test code = 20 mg/dL 7-23 8140642827) GLUCOSE (test code = 146 mg/dL 70-110 H 3493557061) CREATININE (test code = 0.98 mg/dL 0.6-1.25 2382054743) CALCIUM (test code = 8.5 mg/dL 8.6-10.6 L 6220410806) eGFR Calculation mL/min/1.73m2 (Non-) (test code = 4665519955) eGFR Calculation mL/min/1.73m2 () (test code = 9561617440) AKHIL (test code = AKHIL) Association of Glomerular Filtration Rate (GFR) and Staging of Kidney Disease* + --+ --+ ------+| GFR (mL/min/1.73 m2) ?| With Kidney Damage ?| ?Without Kidney Damage+ --------+ --------+ +| ?>90 ?| ?Stage one ?| ? Normal ?+ ---+ ---+ -------+| ?60-89 ?| ?Stage two ?| ? Decreased GFR ? + --+ --+ ------+| ?30-59 ?| ?Stage three ?| ? Stage three ? + --+ --+ ------+| ?15-29 ?| ?Stage four ? | ? Stage four ?+ ---+ ---+ -------+| ?<15 (or dialysis) ? ?| ?Stage five ? | ? Stage five ?+ ---+ ---+ -------+ *Each stage assumes the associated GFR level has been in effect for at least three months. ?Stages 1 to 5, with or without kidney disease, indicate chronic kidney disease. Notes: Determination of stages one and two (with eGFR >59mL/min/1.73 m2) requires estimation of kidney damage for at least three months as defined by structural or functional abnormalities of the kidney, manifested by either:Pathological abnormalities or Markers of kidney damage (including abnormalities in the composition of the blood or urine or abnormalities in imaging tests). Lab Interpretation Abnormal (test code = 41386-5) [facility] WITH [id number] 10:09:00 Test Item Value Reference Range Interpretation Comments WBC (test code = See_Comment [Automated 6690-2) message] The sy stem which generated this result transmitted reference range : 4.20 - 10.70 10*3/?L. The reference range was not used to interpret this result as normal/abnormal . RBC (test code = See_Comment L [Automated 789-8) message] The sy stem which generated this result transmitted reference range : 4.26 - 5.52 10*6/?L. The reference range was not used to interpret this result as normal/abnormal . HGB (test code = 7.4 g/dL 12.2-16.4 L 718-7) HCT (test code = 24.3 % 38.4-49.3 L 4544-3) MCV (test code = 85.6 fL 81.7-95.6 787-2) MCH (test code = 26.1 pg 26.1-32.7 785-6) MCHC (test code = 30.5 g/dL 31.2-35 L 786-4) RDW-SD (test code = 75.3 fL 38.5-51.6 H 49609-0) RDW-CV (test code = 24.0 % 12.1-15.4 H 788-0) PLT (test code = See_Comment [Automated 777-3) message] The sy stem which generated this result transmitted reference range : 150 - 328 10*3/ ?L. The reference r jesus was not used to interpret this result as normal/abnormal . MPV (test code = 9.7 fL 9.8-13 L 05803-0) NRBC/100 WBC (test See_Comment [Automat ed code = 9812304508) message] The system which generated this result transmitted reference range : 0.0 - 10.0 /100 WBCs. The refer ence range was not u sed to interpret th is result as normal/abnormal . NRBC x10^3 (test code <0.01 See_Comment [Auto mated = 4531531978) message] The s ystem which generated this result transmitted reference range : 10*3/?L. The reference range was not used to interpret this result as normal/abnormal . GRAN MAT (NEUT) % 72.1 % (test code = 770-8) IMM GRAN % (test code 0.60 % = 6107696820) LYMPH % (test code = 17.0 % 736-9) MONO % (test code = 7.6 % 5905-5) EOS % (test code = 2.3 % 713-8) BASO % (test code = 0.4 % 706-2) GRAN MAT x10^3(ANC) 6.69 10*3/uL 1.99-6.95 (test code = 7089309541) IMM GRAN x10^3 (test 0.06 10*3/uL 0-0.06 code = 2938648902) LYMPH x10^3 (test code 1.58 10*3/uL 1.09-3.23 = 731-0) MONO x10^3 (test code 0.71 10*3/uL 0.36-1.02 = 742-7) EOS x10^3 (test code = 0.21 10*3/uL 0.06-0.53 711-2) BASO x10^3 (test code 0.04 10*3/uL 0.01-0.09 = 704-7) Lab Interpretation Abnormal (test code = 91325-7) [facility] GLUCOSE (AUTOMATED)2019-09-15 09:05:00 Test Item Value Reference Range Interpretation Comments POCT GLU (test code = 3116690280) 157 mg/dL 70-110 H Lab Interpretation (test code = Abnormal 56237-2) [facility] GLUCOSE (AUTOMATED)2019-09-15 04:54:00 Test Item Value Reference Range Interpretation Comments POCT GLU (test code = 8718889720) 148 mg/dL 70-110 H Lab Interpretation (test code = Abnormal 74819-2) [facility] GLUCOSE (AUTOMATED)2019-09-15 02:17:00 Test Item Value Reference Range Interpretation Comments POCT GLU (test code = 5438883373) 201 mg/dL 70-110 H Lab Interpretation (test code = Abnormal 29070-9) [facility] GLUCOSE (AUTOMATED)2019-09-14 22:25:00 Test Item Value Reference Range Interpretation Comments POCT GLU (test code = 7241992169) 244 mg/dL 70-110 H Lab Interpretation (test code = Abnormal 80302-8) [facility] WITH [id number] 17:08:00 Test Item Value Reference Range Interpretation Comments WBC (test code = See_Comment [Automated 6690-2) message] The sy stem which generated this result transmitted reference range : 4.20 - 10.70 10*3/?L. The reference range was not used to interpret this result as normal/abnormal . RBC (test code = See_Comment L [Automated 789-8) message] The sy stem which generated this result transmitted reference range : 4.26 - 5.52 10*6/?L. The reference range was not used to interpret this result as normal/abnormal . HGB (test code = 7.4 g/dL 12.2-16.4 L 718-7) HCT (test code = 24.3 % 38.4-49.3 L 4544-3) MCV (test code = 86.2 fL 81.7-95.6 787-2) MCH (test code = 26.2 pg 26.1-32.7 785-6) MCHC (test code = 30.5 g/dL 31.2-35 L 786-4) RDW-SD (test code = 74.6 fL 38.5-51.6 H 48798-4) RDW-CV (test code = 24.0 % 12.1-15.4 H 788-0) PLT (test code = See_Comment [Automated 777-3) message] The sy stem which generated this result transmitted reference range : 150 - 328 10*3/ ?L. The reference r jesus was not used to interpret this result as normal/abnormal . MPV (test code = 9.9 fL 9.8-13 58909-7) NRBC/100 WBC (test See_Comment [Automat ed code = 5466170506) message] The system which generated this result transmitted reference range : 0.0 - 10.0 /100 WBCs. The refer ence range was not u sed to interpret th is result as normal/abnormal . NRBC x10^3 (test code <0.01 See_Comment [Auto mated = 5325082251) message] The s ystem which generated this result transmitted reference range : 10*3/?L. The reference range was not used to interpret this result as normal/abnormal . GRAN MAT (NEUT) % 80.0 % (test code = 770-8) IMM GRAN % (test code 0.50 % = 9528766398) LYMPH % (test code = 10.3 % 736-9) MONO % (test code = 7.0 % 5905-5) EOS % (test code = 1.7 % 713-8) BASO % (test code = 0.5 % 706-2) GRAN MAT x10^3(ANC) 6.80 10*3/uL 1.99-6.95 (test code = 1161227768) IMM GRAN x10^3 (test 0.04 10*3/uL 0-0.06 code = 8798490570) LYMPH x10^3 (test code 0.87 10*3/uL 1.09-3.23 L = 731-0) MONO x10^3 (test code 0.59 10*3/uL 0.36-1.02 = 742-7) EOS x10^3 (test code = 0.14 10*3/uL 0.06-0.53 711-2) BASO x10^3 (test code 0.04 10*3/uL 0.01-0.09 = 704-7) Lab Interpretation Abnormal (test code = 69806-2) [facility] GLUCOSE (AUTOMATED)2019-09-14 14:12:00 Test Item Value Reference Range Interpretation Comments POCT GLU (test code = 9010043925) 177 mg/dL 70-110 H Lab Interpretation (test code = Abnormal 77114-7) [facility] GLUCOSE (AUTOMATED)2019-09-14 09:10:00 Test Item Value Reference Range Interpretation Comments POCT GLU (test code = 8853261219) 136 mg/dL 70-110 H Lab Interpretation (test code = Abnormal 04744-0) [facility] CULTURE [id number] 06:01:00 Test Item Value Reference Range Interpretation Comments Blood Culture-Aerobic No organisms No growth Previo us (test code = 50856-9) isolated prelim inary verified result was Culture In Progress on 09/09/2019 at 06 22 CDTPrevious preliminary verified result was No growth a t 24 hours on 09/10/2019 at 03 24 CDTPrevious preliminary verified result was No growth a t 48 hours on 09/11/2019 at 03 24 CDTPrevious preliminary verified result was No growth a t 72 hours on 09/12/2019 at 03 24 CDT Blood No organisms No growth Previous Culture-Anaerobic isolated preliminar y (test code = 20685-2) verifi ed result was Culture In Progress on 09/09/2019 at 04 CDTPrevious preliminary verified result was No growth a t 24 hours on 09/10/2019 at 03 24 CDTPrevious preliminary verified result was No growth a t 48 hours on 09/11/2019 at 03 24 CDTPrevious preliminary verified result was No growth a t 72 hours on 09/12/2019 at 03 24 CDT Lab Interpretation Normal (test code = 48143-6) [facility] CULTURE [id number] 06:01:00 Test Item Value Reference Range Interpretation Comments Blood Culture-Aerobic No organisms No growth Previo us (test code = 75285-0) isolated prelim inary verified result was Culture In Progress on 09/09/2019 at 04 CDTPrevious preliminary verified result was No growth a t 24 hours on 09/10/2019 at 03 24 CDTPrevious preliminary verified result was No growth a t 48 hours on 09/11/2019 at 03 24 CDTPrevious preliminary verified result was No growth a t 72 hours on 09/12/2019 at 01 01 CDT Blood No organisms No growth Previous Culture-Anaerobic isolated preliminar y (test code = 28676-6) verifi ed result was Culture In Progress on 09/09/2019 at 04 01 CDTPrevious preliminary verified result was No growth a t 24 hours on 09/10/2019 at 01 CDTPrevious preliminary verified result was No growth a t 48 hours on 09/11/2019 at 01 CDTPrevious preliminary verified result was No growth a t 72 hours on 09/12/2019 at 01 01 CDT Lab Interpretation Normal (test code = 25398-7) [facility] GLUCOSE (AUTOMATED)2019-09-14 05:06:00 Test Item Value Reference Range Interpretation Comments POCT GLU (test code = 0422511849) 259 mg/dL 70-110 H Lab Interpretation (test code = Abnormal 00394-7) [facility] GLUCOSE (AUTOMATED)2019-09-14 01:41:00 Test Item Value Reference Range Interpretation Comments POCT GLU (test code = 5602310112) 334 mg/dL 70-110 H Lab Interpretation (test code = Abnormal 41171-1) [facility] GLUCOSE (AUTOMATED)2019-09-13 21:23:00 Test Item Value Reference Range Interpretation Comments POCT GLU (test code = 0890205031) 227 mg/dL 70-110 H Lab Interpretation (test code = Abnormal 27653-6) [facility] GLUCOSE (AUTOMATED)2019-09-13 17:25:00 Test Item Value Reference Range Interpretation Comments POCT GLU (test code = 9933310517) 202 mg/dL 70-110 H Lab Interpretation (test code = Abnormal 30794-7) [id number] 17:13:00 Test Item Value Reference Range Interpretation Comments LACTIC ACID (test code = 1.06 mmol/L 0.5-2.2 9508669713) [facility] GLUCOSE (AUTOMATED)2019-09-13 13:40:00 Test Item Value Reference Range Interpretation Comments POCT GLU (test code = 9134755865) 170 mg/dL 70-110 H Lab Interpretation (test code = Abnormal 58305-3) [facility] METABOLIC PANEL ([id number])2019-09-13 10:08:00 Test Item Value Reference Range Interpretation Comments NA (test code = 135 mmol/L 135-145 6065921074) K (test code = 4.0 mmol/L 3.5-5 9691854979) CL (test code = 103 mmol/L 98-108 1986816814) CO2 TOTAL (test code = 27 mmol/L 23-31 3359288239) AGAP (test code = 2-16 7136482974) BUN (test code = 19 mg/dL 7-23 4361135232) GLUCOSE (test code = 131 mg/dL 70-110 H 0245613316) CREATININE (test code = 0.95 mg/dL 0.6-1.25 0573129579) TOTAL BILI (test code = 0.5 mg/dL 0.1-1.0 8888990879) CALCIUM (test code = 8.4 mg/dL 8.6-10.6 L 3576011764) T PROTEIN (test code = 5.7 g/dL 6.3-8.2 L 4715764370) ALBUMIN (test code = 3.0 g/dL 3.5-5 L 6181796895) ALK PHOS (test code = 44 U/L 34-122 0873802048) ALTv (test code = 15 U/L 5-50 1742-6) AST(SGOT) (test code = 22 U/L 13-40 7586569948) eGFR Calculation mL/min/1.73m2 (Non-) (test code = 6127274100) eGFR Calculation mL/min/1.73m2 () (test code = 7145485756) AKHIL (test code = AKHIL) Association of Glomerular Filtration Rate (GFR) and Staging of Kidney Disease* + --+ --+ ------+| GFR (mL/min/1.73 m2) ?| With Kidney Damage ?| ?Without Kidney Damage+ --------+ --------+ +| ?>90 ?| ?Stage one ?| ? Normal ?+ ---+ ---+ -------+| ?60-89 ?| ?Stage two ?| ? Decreased GFR ? + --+ --+ ------+| ?30-59 ?| ?Stage three ?| ? Stage three ? + --+ --+ ------+| ?15-29 ?| ?Stage four ? | ? Stage four ?+ ---+ ---+ -------+| ?<15 (or dialysis) ? ?| ?Stage five ? | ? Stage five ?+ ---+ ---+ -------+ *Each stage assumes the associated GFR level has been in effect for at least three months. ?Stages 1 to 5, with or without kidney disease, indicate chronic kidney disease. Notes: Determination of stages one and two (with eGFR >59mL/min/1.73 m2) requires estimation of kidney damage for at least three months as defined by structural or functional abnormalities of the kidney, manifested by either:Pathological abnormalities or Markers of kidney damage (including abnormalities in the composition of the blood or urine or abnormalities in imaging tests). Lab Interpretation Abnormal (test code = 52002-6) [facility] WITH [id number] 09:40:00 Test Item Value Reference Range Interpretation Comments WBC (test code = See_Comment [Automated 4990-2) message] The sy stem which generated this result transmitted reference range : 4.20 - 10.70 10*3/?L. The reference range was not used to interpret this result as normal/abnormal . RBC (test code = See_Comment L [Automated 789-8) message] The sy stem which generated this result transmitted reference range : 4.26 - 5.52 10*6/?L. The reference range was not used to interpret this result as normal/abnormal . HGB (test code = 7.5 g/dL 12.2-16.4 L 718-7) HCT (test code = 23.9 % 38.4-49.3 L 4544-3) MCV (test code = 86.0 fL 81.7-95.6 787-2) MCH (test code = 27.0 pg 26.1-32.7 785-6) MCHC (test code = 31.4 g/dL 31.2-35 786-4) RDW-SD (test code = 74.0 fL 38.5-51.6 H 87954-5) RDW-CV (test code = 23.9 % 12.1-15.4 H 788-0) PLT (test code = See_Comment [Automated 777-3) message] The sy stem which generated this result transmitted reference range : 150 - 328 10*3/ ?L. The reference r jesus was not used to interpret this result as normal/abnormal . MPV (test code = 8.7 fL 9.8-13 L 45408-4) NRBC/100 WBC (test See_Comment [Automat ed code = 4261640344) message] The system which generated this result transmitted reference range : 0.0 - 10.0 /100 WBCs. The refer ence range was not u sed to interpret th is result as normal/abnormal . NRBC x10^3 (test code <0.01 See_Comment [Auto mated = 0287790591) message] The s ystem which generated this result transmitted reference range : 10*3/?L. The reference range was not used to interpret this result as normal/abnormal . GRAN MAT (NEUT) % 68.7 % (test code = 770-8) IMM GRAN % (test code 0.30 % = 8858255710) LYMPH % (test code = 16.5 % 736-9) MONO % (test code = 10.7 % 5905-5) EOS % (test code = 3.4 % 713-8) BASO % (test code = 0.4 % 706-2) GRAN MAT x10^3(ANC) 4.83 10*3/uL 1.99-6.95 (test code = 3429813055) IMM GRAN x10^3 (test <0.03 0-0.06 code = 1776578398) LYMPH x10^3 (test code 1.16 10*3/uL 1.09-3.23 = 731-0) MONO x10^3 (test code 0.75 10*3/uL 0.36-1.02 = 742-7) EOS x10^3 (test code = 0.24 10*3/uL 0.06-0.53 711-2) BASO x10^3 (test code 0.03 10*3/uL 0.01-0.09 = 704-7) Lab Interpretation Abnormal (test code = 44524-5) [facility] GLUCOSE (AUTOMATED)2019-09-13 09:23:00 Test Item Value Reference Range Interpretation Comments POCT GLU (test code = 3907725251) 138 mg/dL 70-110 H Lab Interpretation (test code = Abnormal 22670-9) [facility] GLUCOSE (AUTOMATED)2019-09-13 01:14:00 Test Item Value Reference Range Interpretation Comments POCT GLU (test code = 7086835346) 170 mg/dL 70-110 H Lab Interpretation (test code = Abnormal 21688-8) [facility] GLUCOSE (AUTOMATED)2019-09-12 22:33:00 Test Item Value Reference Range Interpretation Comments POCT GLU (test code = 6471665590) 125 mg/dL 70-110 H Lab Interpretation (test code = Abnormal 41352-5) [facility] GLUCOSE (AUTOMATED)2019-09-12 19:18:00 Test Item Value Reference Range Interpretation Comments POCT GLU (test code = 1894970647) 260 mg/dL 70-110 H Lab Interpretation (test code = Abnormal 99021-0) [facility] GLUCOSE (AUTOMATED)2019-09-12 17:11:00 Test Item Value Reference Range Interpretation Comments POCT GLU (test code = 1761478501) 250 mg/dL 70-110 H Lab Interpretation (test code = Abnormal 78252-9) [facility] GLUCOSE (AUTOMATED)2019-09-12 12:57:00 Test Item Value Reference Range Interpretation Comments POCT GLU (test code = 0011039310) 221 mg/dL 70-110 H Lab Interpretation (test code = Abnormal 37619-3) [facility] METABOLIC PANEL (NA, K, CL, CO2, GLUCOSE, BUN, CREATININE, CA)2019-09-12 09:38:00 Test Item Value Reference Range Interpretation Comments NA (test code = 135 mmol/L 135-145 4514978600) K (test code = 4.1 mmol/L 3.5-5 5593875228) CL (test code = 102 mmol/L 98-108 3693826022) CO2 TOTAL (test code = 24 mmol/L 23-31 6052024295) AGAP (test code = 2-16 1532615658) BUN (test code = 29 mg/dL 7-23 H 0462434194) GLUCOSE (test code = 142 mg/dL 70-110 H 3184278218) CREATININE (test code = 1.07 mg/dL 0.6-1.25 3720034770) CALCIUM (test code = 8.4 mg/dL 8.6-10.6 L 6152001257) eGFR Calculation mL/min/1.73m2 (Non-) (test code = 4502756998) eGFR Calculation mL/min/1.73m2 () (test code = 0068213714) AKHIL (test code = AKHIL) Association of Glomerular Filtration Rate (GFR) and Staging of Kidney Disease* + --+ --+ ------+| GFR (mL/min/1.73 m2) ?| With Kidney Damage ?| ?Without Kidney Damage+ --------+ --------+ +| ?>90 ?| ?Stage one ?| ? Normal ?+ ---+ ---+ -------+| ?60-89 ?| ?Stage two ?| ? Decreased GFR ? + --+ --+ ------+| ?30-59 ?| ?Stage three ?| ? Stage three ? + --+ --+ ------+| ?15-29 ?| ?Stage four ? | ? Stage four ?+ ---+ ---+ -------+| ?<15 (or dialysis) ? ?| ?Stage five ? | ? Stage five ?+ ---+ ---+ -------+ *Each stage assumes the associated GFR level has been in effect for at least three months. ?Stages 1 to 5, with or without kidney disease, indicate chronic kidney disease. Notes: Determination of stages one and two (with eGFR >59mL/min/1.73 m2) requires estimation of kidney damage for at least three months as defined by structural or functional abnormalities of the kidney, manifested by either:Pathological abnormalities or Markers of kidney damage (including abnormalities in the composition of the blood or urine or abnormalities in imaging tests). Lab Interpretation Abnormal (test code = 51512-9) [facility] Test Item Value Reference Range Interpretation Comments MAGNESIUM (test code = 2613275442) 2.0 mg/dL 1.7-2.4 Lab Interpretation (test code = Normal 64491-5) [facility] [id number] 09:11:00 Test Item Value Reference Range Interpretation Comments WBC (test code = See_Comment [Automated 6690-2) message] The sy stem which generated this result transmitted reference range : 4.20 - 10.70 10*3/?L. The reference range was not used to interpret this result as normal/abnormal . RBC (test code = See_Comment L [Automated 789-8) message] The sy stem which generated this result transmitted reference range : 4.26 - 5.52 10*6/?L. The reference range was not used to interpret this result as normal/abnormal . HGB (test code = 7.6 g/dL 12.2-16.4 L 718-7) HCT (test code = 24.5 % 38.4-49.3 L 4544-3) MCV (test code = 86.9 fL 81.7-95.6 787-2) MCH (test code = 27.0 pg 26.1-32.7 785-6) MCHC (test code = 31.0 g/dL 31.2-35 L 786-4) RDW-SD (test code = 75.0 fL 38.5-51.6 H 16316-7) RDW-CV (test code = 24.1 % 12.1-15.4 H 788-0) PLT (test code = See_Comment [Automated 777-3) message] The sy stem which generated this result transmitted reference range : 150 - 328 10*3/ ?L. The reference r jesus was not used to interpret this result as normal/abnormal . MPV (test code = 10.0 fL 9.8-13 96236-6) NRBC/100 WBC (test See_Comment [Automat ed code = 0801673546) message] The system which generated this result transmitted reference range : 0.0 - 10.0 /100 WBCs. The refer ence range was not u sed to interpret th is result as normal/abnormal . NRBC x10^3 (test code <0.01 See_Comment [Auto mated = 1343996476) message] The s ystem which generated this result transmitted reference range : 10*3/?L. The reference range was not used to interpret this result as normal/abnormal . GRAN MAT (NEUT) % 73.2 % (test code = 770-8) IMM GRAN % (test code 0.50 % = 0348658117) LYMPH % (test code = 14.1 % 736-9) MONO % (test code = 9.1 % 5905-5) EOS % (test code = 2.9 % 713-8) BASO % (test code = 0.2 % 706-2) GRAN MAT x10^3(ANC) 7.45 10*3/uL 1.99-6.95 H (test code = 4682152637) IMM GRAN x10^3 (test 0.05 10*3/uL 0-0.06 code = 1234017570) LYMPH x10^3 (test code 1.44 10*3/uL 1.09-3.23 = 731-0) MONO x10^3 (test code 0.93 10*3/uL 0.36-1.02 = 742-7) EOS x10^3 (test code = 0.30 10*3/uL 0.06-0.53 711-2) BASO x10^3 (test code <0.03 0.01-0.09 = 704-7) Lab Interpretation Abnormal (test code = 40703-2) [facility] GLUCOSE (AUTOMATED)2019-09-12 08:52:00 Test Item Value Reference Range Interpretation Comments POCT GLU (test code = 1834601915) 150 mg/dL 70-110 H Lab Interpretation (test code = Abnormal 14721-3) [facility] GLUCOSE (AUTOMATED)2019-09-12 08:09:00 Test Item Value Reference Range Interpretation Comments POCT GLU (test code = 2861902963) 169 mg/dL 70-110 H Lab Interpretation (test code = Abnormal 90665-9) [facility] GLUCOSE (AUTOMATED)2019-09-12 05:51:00 Test Item Value Reference Range Interpretation Comments POCT GLU (test code = 4178891431) 253 mg/dL 70-110 H Lab Interpretation (test code = Abnormal 90570-5) [facility] GLUCOSE (AUTOMATED)2019-09-12 00:57:00 Test Item Value Reference Range Interpretation Comments POCT GLU (test code = 5990669138) 240 mg/dL 70-110 H Lab Interpretation (test code = Abnormal 27240-0) [facility] GLUCOSE (AUTOMATED)2019-09-11 22:00:00 Test Item Value Reference Range Interpretation Comments POCT GLU (test code = 2153848079) 173 mg/dL 70-110 H Lab Interpretation (test code = Abnormal 76092-7) [facility] GLUCOSE (AUTOMATED)2019-09-11 21:24:00 Test Item Value Reference Range Interpretation Comments POCT GLU (test code = 1368353780) 183 mg/dL 70-110 H Lab Interpretation (test code = Abnormal 24356-3) [facility] GLUCOSE (AUTOMATED)2019-09-11 18:18:00 Test Item Value Reference Range Interpretation Comments POCT GLU (test code = 3305074815) 257 mg/dL 70-110 H Lab Interpretation (test code = Abnormal 41398-8) [facility] GLUCOSE (AUTOMATED)2019-09-11 17:22:00 Test Item Value Reference Range Interpretation Comments POCT GLU (test code = 9003865742) 229 mg/dL 70-110 H Lab Interpretation (test code = Abnormal 97924-3) [facility] GLUCOSE (AUTOMATED)2019-09-11 14:17:00 Test Item Value Reference Range Interpretation Comments POCT GLU (test code = 9444927915) 195 mg/dL 70-110 H Lab Interpretation (test code = Abnormal 61545-3) [facility] GLUCOSE (AUTOMATED)2019-09-11 13:16:00 Test Item Value Reference Range Interpretation Comments POCT GLU (test code = 4881436068) 185 mg/dL 70-110 H Lab Interpretation (test code = Abnormal 61309-8) [facility] METABOLIC PANEL (NA, K, CL, CO2, GLUCOSE, BUN, CREATININE, CA)2019-09-11 12:01:00 Test Item Value Reference Range Interpretation Comments NA (test code = 134 mmol/L 135-145 L 0964255462) K (test code = 4.3 mmol/L 3.5-5 Slight 3290364659) hemolysis CL (test code = 102 mmol/L 98-108 9637935453) CO2 TOTAL (test code 26 mmol/L 23-31 = 1306304173) AGAP (test code = 2-16 8992774875) BUN (test code = 28 mg/dL 7-23 H Slight 3890434700) hemolysis GLUCOSE (test code = 140 mg/dL 70-110 H 6388563063) CREATININE (test code 1.04 mg/dL 0.6-1.25 = 9562350791) CALCIUM (test code = 8.1 mg/dL 8.6-10.6 L 0952464143) eGFR Calculation mL/min/1.73m2 (Non-) (test code = 6080840103) eGFR Calculation mL/min/1.73m2 () (test code = 5857825356) AKHIL (test code = AKHIL) Association of Glomerular Filtration Rate (GFR) and Staging of Kidney Disease* + -----+ --------+ +| GFR (mL/min/1.73 m2) ?| With Kidney Damage ?| ?Without Kidney Damage+ +------- +---- --+| ?>90 ?| ?Stage one ?| ? Normal ?+ ------+ ---------+--------- +| ?60-89 ?| ?Stage two ?| ? Decreased GFR ? + -----+ --------+ +| ?30-59 ?| ?Stage three ?| ? Stage three ? + -----+ --------+ +| ?15-29 ?| ?Stage four ? | ? Stage four ?+ ------+ ---------+--------- +| ?<15 (or dialysis) ? ?| ?Stage five ? | ? Stage five ?+ ------+ ---------+--------- + *Each stage assumes the associated GFR level has been in effect for at least three months. ?Stages 1 to 5, with or without kidney disease, indicate chronic kidney disease. Notes: Determination of stages one and two (with eGFR >59mL/min/1.73 m2) requires estimation of kidney damage for at least three months as defined by structural or functional abnormalities of the kidney, manifested by either:Pathological abnormalities or Markers of kidney damage (including abnormalities in the composition of the blood or urine or abnormalities in imaging tests). Lab Interpretation Abnormal (test code = 96128-0) [facility] 12:01:00 Test Item Value Reference Range Interpretation Comments MAGNESIUM (test code = 7210474161) 2.1 mg/dL 1.7-2.4 Lab Interpretation (test code = Normal 28676-0) [facility] WITH [id number] 11:35:00 Test Item Value Reference Range Interpretation Comments WBC (test code = See_Comment [Automated 6690-2) message] The sy stem which generated this result transmitted reference range : 4.20 - 10.70 10*3/?L. The reference range was not used to interpret this result as normal/abnormal . RBC (test code = See_Comment L [Automated 789-8) message] The sy stem which generated this result transmitted reference range : 4.26 - 5.52 10*6/?L. The reference range was not used to interpret this result as normal/abnormal . HGB (test code = 7.0 g/dL 12.2-16.4 L 718-7) HCT (test code = 23.1 % 38.4-49.3 L 4544-3) MCV (test code = 88.8 fL 81.7-95.6 787-2) MCH (test code = 26.9 pg 26.1-32.7 785-6) MCHC (test code = 30.3 g/dL 31.2-35 L 786-4) RDW-SD (test code = 78.2 fL 38.5-51.6 H 12060-5) RDW-CV (test code = 24.7 % 12.1-15.4 H 788-0) PLT (test code = See_Comment L [Automated 777-3) message] The sy stem which generated this result transmitted reference range : 150 - 328 10*3/ ?L. The reference r jesus was not used to interpret this result as normal/abnormal . MPV (test code = 10.3 fL 9.8-13 39134-2) NRBC/100 WBC (test See_Comment [Automat ed code = 8270506325) message] The system which generated this result transmitted reference range : 0.0 - 10.0 /100 WBCs. The refer ence range was not u sed to interpret th is result as normal/abnormal . NRBC x10^3 (test code <0.01 See_Comment [Auto mated = 9171034720) message] The s ystem which generated this result transmitted reference range : 10*3/?L. The reference range was not used to interpret this result as normal/abnormal . GRAN MAT (NEUT) % 74.2 % (test code = 770-8) IMM GRAN % (test code 0.40 % = 3407522901) LYMPH % (test code = 13.6 % 736-9) MONO % (test code = 8.4 % 5905-5) EOS % (test code = 3.3 % 713-8) BASO % (test code = 0.1 % 706-2) GRAN MAT x10^3(ANC) 6.99 10*3/uL 1.99-6.95 H (test code = 7589013076) IMM GRAN x10^3 (test 0.04 10*3/uL 0-0.06 code = 5456486727) LYMPH x10^3 (test code 1.28 10*3/uL 1.09-3.23 = 731-0) MONO x10^3 (test code 0.79 10*3/uL 0.36-1.02 = 742-7) EOS x10^3 (test code = 0.31 10*3/uL 0.06-0.53 711-2) BASO x10^3 (test code <0.03 0.01-0.09 = 704-7) Lab Interpretation Abnormal (test code = 94037-8) [facility] GLUCOSE (AUTOMATED)2019-09-11 01:47:00 Test Item Value Reference Range Interpretation Comments POCT GLU (test code = 2434118291) 201 mg/dL 70-110 H Lab Interpretation (test code = Abnormal 70273-6) [facility] GLUCOSE (AUTOMATED)2019-09-10 21:38:00 Test Item Value Reference Range Interpretation Comments POCT GLU (test code = 3734620218) 242 mg/dL 70-110 H Lab Interpretation (test code = Abnormal 03734-1) [facility] GLUCOSE (AUTOMATED)2019-09-10 18:12:00 Test Item Value Reference Range Interpretation Comments POCT GLU (test code = 1896635217) 280 mg/dL 70-110 H Lab Interpretation (test code = Abnormal 45404-0) [facility] METABOLIC PANEL (NA, K, CL, CO2, GLUCOSE, BUN, CREATININE, CA)2019-09-10 10:07:00 Test Item Value Reference Range Interpretation Comments NA (test code = 138 mmol/L 135-145 7131855590) K (test code = 4.2 mmol/L 3.5-5 5951635833) CL (test code = 105 mmol/L 98-108 0297585927) CO2 TOTAL (test code = 27 mmol/L 23-31 1349954895) AGAP (test code = 2-16 2272940659) BUN (test code = 19 mg/dL 7-23 3895761722) GLUCOSE (test code = 127 mg/dL 70-110 H 3231925452) CREATININE (test code = 1.13 mg/dL 0.6-1.25 8580810927) CALCIUM (test code = 8.4 mg/dL 8.6-10.6 L 4848519509) eGFR Calculation mL/min/1.73m2 (Non-) (test code = 2040580664) eGFR Calculation mL/min/1.73m2 () (test code = 2204844193) AKHIL (test code = AKHIL) Association of Glomerular Filtration Rate (GFR) and Staging of Kidney Disease* + --+ --+ ------+| GFR (mL/min/1.73 m2) ?| With Kidney Damage ?| ?Without Kidney Damage+ --------+ --------+ +| ?>90 ?| ?Stage one ?| ? Normal ?+ ---+ ---+ -------+| ?60-89 ?| ?Stage two ?| ? Decreased GFR ? + --+ --+ ------+| ?30-59 ?| ?Stage three ?| ? Stage three ? + --+ --+ ------+| ?15-29 ?| ?Stage four ? | ? Stage four ?+ ---+ ---+ -------+| ?<15 (or dialysis) ? ?| ?Stage five ? | ? Stage five ?+ ---+ ---+ -------+ *Each stage assumes the associated GFR level has been in effect for at least three months. ?Stages 1 to 5, with or without kidney disease, indicate chronic kidney disease. Notes: Determination of stages one and two (with eGFR >59mL/min/1.73 m2) requires estimation of kidney damage for at least three months as defined by structural or functional abnormalities of the kidney, manifested by either:Pathological abnormalities or Markers of kidney damage (including abnormalities in the composition of the blood or urine or abnormalities in imaging tests). Lab Interpretation Abnormal (test code = 20020-4) [facility] 10:07:00 Test Item Value Reference Range Interpretation Comments MAGNESIUM (test code = 2198180569) 2.1 mg/dL 1.7-2.4 Lab Interpretation (test code = Normal 38266-7) [facility] [id number] 09:49:00 Test Item Value Reference Range Interpretation Comments WBC (test code = See_Comment H [Automated 6690-2) message] The sy stem which generated this result transmitted reference range : 4.20 - 10.70 10*3/?L. The reference range was not used to interpret this result as normal/abnormal . RBC (test code = See_Comment L [Automated 789-8) message] The sy stem which generated this result transmitted reference range : 4.26 - 5.52 10*6/?L. The reference range was not used to interpret this result as normal/abnormal . HGB (test code = 7.7 g/dL 12.2-16.4 L 718-7) HCT (test code = 26.0 % 38.4-49.3 L 4544-3) MCV (test code = 89.3 fL 81.7-95.6 787-2) MCH (test code = 26.5 pg 26.1-32.7 785-6) MCHC (test code = 29.6 g/dL 31.2-35 L 786-4) RDW-SD (test code = 81.0 fL 38.5-51.6 H 92162-3) RDW-CV (test code = 25.2 % 12.1-15.4 H 788-0) PLT (test code = See_Comment L [Automated 777-3) message] The sy stem which generated this result transmitted reference range : 150 - 328 10*3/ ?L. The reference r jesus was not used to interpret this result as normal/abnormal . MPV (test code = 9.5 fL 9.8-13 L 69418-5) NRBC/100 WBC (test See_Comment [Automat ed code = 4508979460) message] The system which generated this result transmitted reference range : 0.0 - 10.0 /100 WBCs. The refer ence range was not u sed to interpret th is result as normal/abnormal . NRBC x10^3 (test code <0.01 See_Comment [Auto mated = 2659801358) message] The s ystem which generated this result transmitted reference range : 10*3/?L. The reference range was not used to interpret this result as normal/abnormal . GRAN MAT (NEUT) % 79.4 % (test code = 770-8) IMM GRAN % (test code 0.50 % = 1112513088) LYMPH % (test code = 9.7 % 736-9) MONO % (test code = 7.1 % 5905-5) EOS % (test code = 3.0 % 713-8) BASO % (test code = 0.3 % 706-2) GRAN MAT x10^3(ANC) 9.66 10*3/uL 1.99-6.95 H (test code = 1820824393) IMM GRAN x10^3 (test 0.06 10*3/uL 0-0.06 code = 3019475095) LYMPH x10^3 (test code 1.18 10*3/uL 1.09-3.23 = 731-0) MONO x10^3 (test code 0.86 10*3/uL 0.36-1.02 = 742-7) EOS x10^3 (test code = 0.36 10*3/uL 0.06-0.53 711-2) BASO x10^3 (test code 0.04 10*3/uL 0.01-0.09 = 704-7) Lab Interpretation Abnormal (test code = 43500-3) [facility] 02:01:00 Test Item Value Reference Range Interpretation Comments POCT GLU (test code = 7503771878) 165 mg/dL 70-110 H Lab Interpretation (test code = Abnormal 94230-6) [facility] [id number] 22:36:00 Test Item Value Reference Range Interpretation Comments WBC (test code = 6690-2) See_Comment H [A utomated message] The system [facility] generated this result transmit sapna reference range : 4.20 - 10.70 10*3/?L. The reference range was not used to interpret this result as normal/abnormal . RBC (test code = 789-8) See_Comment L [Au tomated message] The system [facility] generated this result transmit sapna reference range : 4.26 - 5.52 10* 6/?L. The reference r jesus was not used to interpret this result as normal/abnormal . HGB (test code = 718-7) 8.0 g/dL 12.2-16.4 L HCT (test code = 4544-3) 27.0 % 38.4-49.3 L MCH (test code = 785-6) 26.8 pg 26.1-32.7 MCV (test code = 787-2) 90.6 fL 81.7-95.6 MCHC (test code = 786-4) 29.6 g/dL 31.2-35 L PLT (test code = 777-3) See_Comment L [Au tomated message] The system [facility] generated this result transmit sapna reference range : 150 - 328 10*3/?L. The reference range was not used to interpret this result as normal/abnormal . MPV (test code = 9.7 fL 9.8-13 L 11215-2) RDW-CV (test code = 25.4 % 12.1-15.4 H 788-0) RDW-SD (test code = 82.4 fL 38.5-51.6 H 50213-2) NRBC x10^3 (test code = <0.01 See_Comment [Au tomated message] 1276746486) The system [facility] generated this result transmit sapna reference range : 10*3/?L. The reference range was not used to interpret this result as normal/abnormal . NRBC/100 WBC (test code See_Comment [Au tomated message] = 9968935330) The system [facility] generated this result transmit sapna reference range : 0.0 - 10.0 /100 WBC s. The reference r jesus was not used to interpret this result as normal/abnormal . IPF % (test code = 2786002559) Lab Interpretation (test Abnormal code = 69616-5) [facility] GLUCOSE (AUTOMATED)2019-09-09 21:48:00 Test Item Value Reference Range Interpretation Comments POCT GLU (test code = 6582844403) 161 mg/dL 70-110 H Lab Interpretation (test code = Abnormal 03405-7) [facility] GLUCOSE (AUTOMATED)2019-09-09 17:50:00 Test Item Value Reference Range Interpretation Comments POCT GLU (test code = 2517640182) 158 mg/dL 70-110 H Lab Interpretation (test code = Abnormal 03218-7) [facility] MSSA Screen by Milton [id number] 16:16:00 Test Item Value Reference Range Interpretation Comments MSSA Screen by Milton CISNEROS (test code Negative Negative = 02085-6) MRSA/MSSA Positive? (test code = No No [id number]) Lab Interpretation (test code = Normal 95880-5) [facility] 1 [id number] 14:31:14FINDINGS AND IMPRESSION: A heterogeneous opacity occupies most of the right lung, likelyrepresentingconsolidations, likely due to a combination of atelectasis andinfection, including aspiration, ?Moderate increase in the pulmonaryvascular markings in keeping with moderate pulmonary vascular congestion.No pleural effusion or pneumothorax is identified. A small hiatal hernia is present. The cardiomediastinal silhouette isnormal. Mildly distended air-filled stomach is noted. No acute osseous abnormality. Median sternotomy wires are present. Preliminary Report Dictated by Resident: Magdy Sanchez I reviewed this study and agree with minor modifications (no call needed tothe referring physician). I,Mor Faustin MD., have reviewed this study and agree with theabove report. EXAM: XR CHEST 1 VW HISTORY: intraop aspiration COMPARISON: Chest x-ray dated 08/13/2019. [facility], Radiant Results Inft User - 09/09/2019 9:32 AM CDTEXAM: XR CHEST 1 VWHISTORY: intraop aspiration COMPARISON: Chest x-ray dated 08/13/2019.IMPRESSIONFINDINGS AND IMPRESSION:A heterogeneous opacity occupies most of the right lung, likelyrepresenting consolidations, likely due to a combination of atelectasis andinfection, including aspiration, Moderate increase in the pulmonaryvascular markings in keeping with moderate pulmonaryvascular congestion.No pleural effusion or pneumothorax is identified.A small hiatal hernia is present. The cardiomediastinal silhouette isnormal. Mildly distended air-filled stomach is noted.No acute osseous abnormality.Median sternotomy wires are present.Preliminary Report Dictated by Resident: Magdy Mcdonnell reviewed this study and agree with minor modifications (no call needed tothe referring donna abdalla).I, Mor Faustin MD., have reviewed this study and agree with theabove report.[facility]) 2019-09-09 13:53:00 Test Item Value Reference Range Interpretation Comments POCT GLU (test code = 3539710754) 199 mg/dL 70-110 H Lab Interpretation (test code = Abnormal 79627-3) [facility] METABOLIC PANEL (NA, K, CL, CO2, GLUCOSE, BUN, CREATININE, CA)2019-09-09 09:59:00 Test Item Value Reference Range Interpretation Comments NA (test code = 136 mmol/L 135-145 3933318275) K (test code = 4.2 mmol/L 3.5-5 4441899279) CL (test code = 106 mmol/L 98-108 0912930296) CO2 TOTAL (test code = 25 mmol/L 23-31 7224671109) AGAP (test code = 2-16 3612277139) BUN (test code = 17 mg/dL 7-23 1761278211) GLUCOSE (test code = 180 mg/dL 70-110 H 6306830169) CREATININE (test code = 1.06 mg/dL 0.6-1.25 1121729076) CALCIUM (test code = 8.0 mg/dL 8.6-10.6 L 0713600475) eGFR Calculation mL/min/1.73m2 (Non-) (test code = 7665453662) eGFR Calculation mL/min/1.73m2 () (test code = 8698520986) AKHIL (test code = AKHIL) Association of Glomerular Filtration Rate (GFR) and Staging of Kidney Disease* + --+ --+ ------+| GFR (mL/min/1.73 m2) ?| With Kidney Damage ?| ?Without Kidney Damage+ --------+ --------+ +| ?>90 ?| ?Stage one ?| ? Normal ?+ ---+ ---+ -------+| ?60-89 ?| ?Stage two ?| ? Decreased GFR ? + --+ --+ ------+| ?30-59 ?| ?Stage three ?| ? Stage three ? + --+ --+ ------+| ?15-29 ?| ?Stage four ? | ? Stage four ?+ ---+ ---+ -------+| ?<15 (or dialysis) ? ?| ?Stage five ? | ? Stage five ?+ ---+ ---+ -------+ *Each stage assumes the associated GFR level has been in effect for at least three months. ?Stages 1 to 5, with or without kidney disease, indicate chronic kidney disease. Notes: Determination of stages one and two (with eGFR >59mL/min/1.73 m2) requires estimation of kidney damage for at least three months as defined by structural or functional abnormalities of the kidney, manifested by either:Pathological abnormalities or Markers of kidney damage (including abnormalities in the composition of the blood or urine or abnormalities in imaging tests). Lab Interpretation Abnormal (test code = 16709-8) [facility]2020-[facility]-18 09:59:00 Test Item Value Reference Range Interpretation Comments MAGNESIUM (test code = 9815482941) 1.9 mg/dL 1.7-2.4 Lab Interpretation (test code = Normal 71085-9) [facility] WITH [id number] 09:21:00 Test Item Value Reference Range Interpretation Comments WBC (test code = See_Comment H [Automated 8176-2) message] The system which generated this result transmit sapna reference range : 4.20 - 10.70 10*3/?L. The reference range was not used to interpret this result as normal/abnormal . RBC (test code = See_Comment L [Automated 095-8) message] The system which generated this result transmit sapna reference range : 4.26 - 5.52 10*6/?L. The reference range was not used to interpret this result as normal/abnormal . HGB (test code = 7.8 g/dL 12.2-16.4 L 718-7) HCT (test code = 25.4 % 38.4-49.3 L 4544-3) MCV (test code = 88.2 fL 81.7-95.6 787-2) MCH (test code = 27.1 pg 26.1-32.7 785-6) MCHC (test code = 30.7 g/dL 31.2-35 L 786-4) RDW-SD (test code = 79.3 fL 38.5-51.6 H 23686-1) RDW-CV (test code = 25.3 % 12.1-15.4 H 788-0) PLT (test code = See_Comment L [Automated 777-3) message] The system which generated this result transmit sapna reference range : 150 - 328 10*3/ ?L. The reference range was not u sed to interpret th is result as normal/abnormal . MPV (test code = 9.5 fL 9.8-13 L 48145-2) NRBC/100 WBC (test See_Comment [Automat ed code = 5561932457) message] The system which generated this result transmit sapna reference range : 0.0 - 10.0 /100 WBCs. The reference range was not used to interpret this result as normal/abnormal . NRBC x10^3 (test code <0.01 See_Comment [Auto mated = 6773909169) message] The system which generated this result transmit sapna reference range : 10*3/?L. The reference range was not used to interpret this result as normal/abnormal . GRAN MAT (NEUT) % 88.1 % (test code = 770-8) IMM GRAN % (test code 0.60 % = 4890680652) LYMPH % (test code = 5.5 % 736-9) MONO % (test code = 5.5 % 5905-5) EOS % (test code = 0.1 % 713-8) BASO % (test code = 0.2 % 706-2) GRAN MAT x10^3(ANC) 14.61 10*3/uL 1.99-6.95 H (test code = 5105317736) IMM GRAN x10^3 (test 0.10 10*3/uL 0-0.06 H code = 1784937670) LYMPH x10^3 (test code 0.91 10*3/uL 1.09-3.23 L = 731-0) MONO x10^3 (test code 0.92 10*3/uL 0.36-1.02 = 742-7) EOS x10^3 (test code = <0.03 0.06-0.53 L 711-2) BASO x10^3 (test code 0.03 10*3/uL 0.01-0.09 = 704-7) Lab Interpretation Abnormal (test code = 60913-3) [facility] TexasPROFILE / [id number] 04:52:00 Test Item Value Reference Range Interpretation Comments WBC (test code = 6690-2) See_Comment H [A utomated message] The system [employer] generated this result transmit sapna reference range : 4.20 - 10.70 10*3/?L. The reference range was not used to interpret this result as normal/abnormal . RBC (test code = 789-8) See_Comment L [Au tomated message] The system [employer] generated this result transmit sapna reference range : 4.26 - 5.52 10* 6/?L. The reference r jesus was not used to interpret this result as normal/abnormal . HGB (test code = 718-7) 8.3 g/dL 12.2-16.4 L HCT (test code = 4544-3) 27.2 % 38.4-49.3 L MCH (test code = 785-6) 26.9 pg 26.1-32.7 MCV (test code = 787-2) 88.0 fL 81.7-95.6 MCHC (test code = 786-4) 30.5 g/dL 31.2-35 L PLT (test code = 777-3) See_Comment L [Au tomated message] The system [employer] generated this result transmit sapna reference range : 150 - 328 10*3/?L. The reference range was not used to interpret this result as normal/abnormal . MPV (test code = 9.3 fL 9.8-13 L 16793-4) RDW-CV (test code = 25.2 % 12.1-15.4 H 788-0) RDW-SD (test code = 79.6 fL 38.5-51.6 H 78684-0) NRBC x10^3 (test code = <0.01 See_Comment [Au tomated message] 2332874612) The system [employer] generated this result transmit sapna reference range : 10*3/?L. The reference range was not used to interpret this result as normal/abnormal . NRBC/100 WBC (test code See_Comment [Au tomated message] = 3070182187) The system [employer] generated this result transmit sapna reference range : 0.0 - 10.0 /100 WBC s. The reference r jesus was not used to interpret this result as normal/abnormal . IPF % (test code = 6568142942) Lab Interpretation (test Abnormal code = 55959-0) [facility] D[facility] WITH [id number] 03:04:09Technically successful fluoroscopic guided percutaneous bonebiopsy. Preliminary Report Dictated by Resident: Seth Springer MD., have reviewed this study and agree with theabove report.EXAMINATION: IMAGE GUIDED PERCUTANEOUS BONE BIOPSY. 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 Total monitored sedation time was time minutes. ATTENDING PRESENCE: ?As the attending radiolog ist, I was present in theroom during the entire procedure. RADIATION DOSE: 0.18 mGy. TECHNIQUE: The risks, benefits and alternatives were discussed and informedconsent was obtained. Prior to beginning the procedure, [place] Protocolwas performed to confirm the patient's identity and the planned proce dure.Maximum sterile barriers including cap, mask, hand hygiene, sterile gloves,sterile gown, large sterile drape and cutaneous antisepsis were used. The right foot second digit was localized using fluoroscopic guidance. Asafe route, free of overlying structures was identified. The area over thissitewas anesthetized with 1 percent lidocaine, and a small skin incisionwas made. A bone access tray wasutilized. An 11 gauge coaxial needle was advancedinto the targeted bone using real-time fluoroscopicguidance. A 13-gaugecore biopsy sample was obtained and sent to lab for culture analysis. At the endof the procedure, the biopsy device was removed and pressureheld until hemostasis was achieved. ESTIMATED BLOOD LOSS: Minimal. CONDITION: Stable. DISCHARGED TO: Recovery. FINDINGS:Fluoroscopy images show an appropriate target for bone biopsy. [facility], Radiant Results Inft User - 09/08/2019 10:05 PM CDTEXAMINATION: IMAGE GUIDED PERCUTANEOUS BONE BIOPSY. 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 Total monitored sedation time was time minutes.ATTENDING PRESENCE: As the attending radiologist, I was present in theroom during the entire procedure. RADIATION DOSE: 0.18 mGy.TECHNIQUE: The risks, benefitsand alternatives were discussed and informedconsent was obtained. Prior to beginning the procedure, [place] Protocolwas performed to confirm the patient's identity and the planned procedure.Maximum sterile barriers including cap, mask, hand hygiene, sterile gloves,sterile gown, large sterile drape and cutaneous antisepsis were used. The right foot second digit was localized using fluoroscopic guidance. Asafe route, free of overlying structures was identified. The area over thissite was anesthetized with 1 percent lidocaine, and a small skin incisionwas made. A bone access tray was utilized. An 11gauge coaxial needle was advancedinto the targeted bone using real-time fluoroscopic guidance. A 13-gaugecore biopsy sample was obtained and sent to lab for culture analysis. At the end of the procedure, the biopsy device was removed and pressureheld until hemostasis was achieved. ESTIMATED BLOOD LOSS: Minimal.CONDITION: Stable.DISCHARGED TO: Recovery.FINDINGS:Fluoroscopy images show an appropriate target for bone biopsy.IMPRESSIONTechnically successful fluoroscopic guided percutaneous bonebiopsy.Preliminary Report Dictated by Resident: Seth Crawford MD., have reviewed thisstudy and agree with theabove report.[facility] TexasPrepare Packed RBC (in units), 1 [id number] 01:41:57 Test Item Value Reference Range Interpretation Comments Cross Match Result Compatible (test code = 4409) ISBT Blood Type Code (test code = 599260) Unit Blood Type (test A Pos code = 4410) Unit Number (test [id number] code = 4411) Blood Expiration Date & Time (test code = 604607) Status Information Issued (test code = 4412) Product Red Blood Cells Identification (test code = 4413) Product Code (test X0405I48 Performed at [facility] code = 4414) Laboratory Services - [facility] Blood [address] [facility] [address]Bhev Free: [phone] A No. [id number] [facility]SE (AUTOMATED)2019-09-09 00:51:00 Test Item Value Reference Range Interpretation Comments POCT GLU (test code = 2421601075) 228 mg/dL 70-110 H Lab Interpretation (test code = Abnormal 97804-5) [facility] TexasType and Screen - [id number] 00:42:41 Test Item Value Reference Range Interpretation Comments IAT (test code = Negative Performed a t [facility] 1185) Laboratory Serv [facility] Blood [facility]3 01 [facility] [address]Zuvi Free: [phone] A No. [id number] ABO & RH (test code A Positive Performe d at [facility] = 20) Laboratory Serv [facility] Blood [facility]3 [address] [facility] [address]Ekrl Free: [phone] A No. [id number] [facility] TexasCOMP. METABOLIC PANEL (93313)2019-09-08 23:49:00 Test Item Value Reference Range Interpretation Comments NA (test code = 138 mmol/L 135-145 4683936490) K (test code = 3.7 mmol/L 3.5-5 0983569159) CL (test code = 106 mmol/L 98-108 0414552551) CO2 TOTAL (test code = 23 mmol/L 23-31 6414621096) AGAP (test code = 2-16 7695161478) BUN (test code = 15 mg/dL 7-23 5916322227) GLUCOSE (test code = 163 mg/dL 70-110 H 3831301130) CREATININE (test code = 0.89 mg/dL 0.6-1.25 6406960164) TOTAL BILI (test code = 0.2 mg/dL 0.1-1.6 7928902275) CALCIUM (test code = 7.6 mg/dL 8.6-10.6 L 0834814973) T PROTEIN (test code = 5.2 g/dL 6.3-8.2 L 3061395381) ALBUMIN (test code = 2.8 g/dL 3.5-5 L 2360720725) ALK PHOS (test code = 41 U/L 34-122 7105168219) ALTv (test code = 15 U/L 5-50 1742-6) AST(SGOT) (test code = 18 U/L 13-40 3269146031) eGFR Calculation mL/min/1.73m2 (Non-) (test code = 5185804965) eGFR Calculation mL/min/1.73m2 () (test code = 2726907239) AKHIL (test code = AKHIL) Association of Glomerular Filtration Rate (GFR) and Staging of Kidney Disease* + --+ --+ ------+| GFR (mL/min/1.73 m2) ?| With Kidney Damage ?| ?Without Kidney Damage+ --------+ --------+ +| ?>90 ?| ?Stage one ?| ? Normal ?+ ---+ ---+ -------+| ?60-89 ?| ?Stage two ?| ? Decreased GFR ? + --+ --+ ------+| ?30-59 ?| ?Stage three ?| ? Stage three ? + --+ --+ ------+| ?15-29 ?| ?Stage four ? | ? Stage four ?+ ---+ ---+ -------+| ?<15 (or dialysis) ? ?| ?Stage five ? | ? Stage five ?+ ---+ ---+ -------+ *Each stage assumes the associated GFR level has been in effect for at least three months. ?Stages 1 to 5, with or without kidney disease, indicate chronic kidney disease. Notes: Determination of stages one and two (with eGFR >59mL/min/1.73 m2) requires estimation of kidney damage for at least three months as defined by structural or functional abnormalities of the kidney, manifested by either:Pathological abnormalities or Markers of kidney damage (including abnormalities in the composition of the blood or urine or abnormalities in imaging tests). Lab Interpretation Abnormal (test code = 65522-5) [facility] WITH [id number] 23:22:00 Test Item Value Reference Range Interpretation Comments WBC (test code = See_Comment H [Automated 6690-2) message] The system which generated this result transmit sapna reference range : 4.20 - 10.70 10*3/?L. The reference range was not used to interpret this result as normal/abnormal . RBC (test code = See_Comment L [Automated 789-8) message] The system which generated this result transmit sapna reference range : 4.26 - 5.52 10*6/?L. The reference range was not used to interpret this result as normal/abnormal . HGB (test code = 6.7 g/dL 12.2-16.4 L 718-7) HCT (test code = 22.0 % 38.4-49.3 L 4544-3) MCV (test code = 85.9 fL 81.7-95.6 787-2) MCH (test code = 26.2 pg 26.1-32.7 785-6) MCHC (test code = 30.5 g/dL 31.2-35 L 786-4) RDW-SD (test code = 82.1 fL 38.5-51.6 H 48850-6) RDW-CV (test code = 26.6 % 12.1-15.4 H 788-0) PLT (test code = See_Comment L [Automated 777-3) message] The system which generated this result transmit sapna reference range : 150 - 328 10*3/ ?L. The reference range was not u sed to interpret th is result as normal/abnormal . MPV (test code = 9.9 fL 9.8-13 28042-3) NRBC/100 WBC (test See_Comment [Automat ed code = 7448002281) message] The system which generated this result transmit sapna reference range : 0.0 - 10.0 /100 WBCs. The reference range was not used to interpret this result as normal/abnormal . NRBC x10^3 (test code <0.01 See_Comment [Auto mated = 8039029593) message] The system which generated this result transmit sapna reference range : 10*3/?L. The reference range was not used to interpret this result as normal/abnormal . GRAN MAT (NEUT) % 84.4 % (test code = 770-8) IMM GRAN % (test code 0.40 % = 8202837632) LYMPH % (test code = 11.1 % 736-9) MONO % (test code = 3.1 % 5905-5) EOS % (test code = 0.8 % 713-8) BASO % (test code = 0.2 % 706-2) GRAN MAT x10^3(ANC) 10.23 10*3/uL 1.99-6.95 H (test code = 2194370232) IMM GRAN x10^3 (test 0.05 10*3/uL 0-0.06 code = 0176951995) LYMPH x10^3 (test code 1.34 10*3/uL 1.09-3.23 = 731-0) MONO x10^3 (test code 0.38 10*3/uL 0.36-1.02 = 742-7) EOS x10^3 (test code = 0.10 10*3/uL 0.06-0.53 711-2) BASO x10^3 (test code <0.03 0.01-0.09 = 704-7) Lab Interpretation Abnormal (test code = 92566-8) [facility] TexasPROTHROMBIN TIME / [id number] 23:19:00 Test Item Value Reference Range Interpretation Comments PROTIME PATIENT (test See_Comment H [Auto mated message] code = 5964-2) The system [facility] generated this result transmitted ref erence range: 10.1 - 1 2.6 Seconds. The reference range was not used to int erpret this result as normal/abnormal . INR (test code = 6301-6) Nor mal INR <1.1; Warfarin Therap eutic range 2.0 to 3. 0 or 2.5 to 3.5, dep ending upon the indica tions. Lab Interpretation (test Abnormal code = 17323-5) [facility] TexasFL TIME OR (NON-REPORTABLE)2019-09-08 23:15:55 These images do not require a Radiology diagnostic report.[facility] TexasPOCT GLUCOSE (AUTOMATED)2019-09-08 12:54:00 Test Item Value Reference Range Interpretation Comments POCT GLU (test code = 5073420942) 168 mg/dL 70-110 H Lab Interpretation (test code = Abnormal 64336-7) [facility] METABOLIC PANEL (NA, K, CL, CO2, GLUCOSE, BUN, CREATININE, CA)2019-09-08 11:39:00 Test Item Value Reference Range Interpretation Comments NA (test code = 138 mmol/L 135-145 5111614408) K (test code = 4.0 mmol/L 3.5-5 2249917211) CL (test code = 105 mmol/L 98-108 3850791759) CO2 TOTAL (test code = 27 mmol/L 23-31 8430315920) AGAP (test code = 2-16 2207159767) BUN (test code = 19 mg/dL 7-23 7450471808) GLUCOSE (test code = 149 mg/dL 70-110 H 1872297081) CREATININE (test code = 0.99 mg/dL 0.6-1.25 7997632767) CALCIUM (test code = 8.4 mg/dL 8.6-10.6 L 2722702293) eGFR Calculation mL/min/1.73m2 (Non-) (test code = 6742278927) eGFR Calculation mL/min/1.73m2 () (test code = 3117468051) AKHIL (test code = AKHIL) Association of Glomerular Filtration Rate (GFR) and Staging of Kidney Disease* + --+ --+ ------+| GFR (mL/min/1.73 m2) ?| With Kidney Damage ?| ?Without Kidney Damage+ --------+ --------+ +| ?>90 ?| ?Stage one ?| ? Normal ?+ ---+ ---+ -------+| ?60-89 ?| ?Stage two ?| ? Decreased GFR ? + --+ --+ ------+| ?30-59 ?| ?Stage three ?| ? Stage three ? + --+ --+ ------+| ?15-29 ?| ?Stage four ? | ? Stage four ?+ ---+ ---+ -------+| ?<15 (or dialysis) ? ?| ?Stage five ? | ? Stage five ?+ ---+ ---+ -------+ *Each stage assumes the associated GFR level has been in effect for at least three months. ?Stages 1 to 5, with or without kidney disease, indicate chronic kidney disease. Notes: Determination of stages one and two (with eGFR >59mL/min/1.73 m2) requires estimation of kidney damage for at least three months as defined by structural or functional abnormalities of the kidney, manifested by either:Pathological abnormalities or Markers of kidney damage (including abnormalities in the composition of the blood or urine or abnormalities in imaging tests). Lab Interpretation Abnormal (test code = 00097-2) [facility] TexasMAG[facility]IUM2020-06-17 11:39:00 Test Item Value Reference Range Interpretation Comments MAGNESIUM (test code = 5759915437) 2.0 mg/dL 1.7-2.4 Lab Interpretation (test code = Normal 97045-7) [facility] TexasCB WITH [id number] 11:07:00 Test Item Value Reference Range Interpretation Comments WBC (test code = See_Comment [Automated 6690-2) message] The sy stem which generated this result transmitted reference range : 4.20 - 10.70 10*3/?L. The reference range was not used to interpret this result as normal/abnormal . RBC (test code = See_Comment L [Automated 789-8) message] The sy stem which generated this result transmitted reference range : 4.26 - 5.52 10*6/?L. The reference range was not used to interpret this result as normal/abnormal . HGB (test code = 8.8 g/dL 12.2-16.4 L 718-7) HCT (test code = 29.1 % 38.4-49.3 L 4544-3) MCV (test code = 85.6 fL 81.7-95.6 787-2) MCH (test code = 25.9 pg 26.1-32.7 L 785-6) MCHC (test code = 30.2 g/dL 31.2-35 L 786-4) RDW-SD (test code = 83.4 fL 38.5-51.6 H 83924-4) RDW-CV (test code = 27.1 % 12.1-15.4 H 788-0) PLT (test code = See_Comment [Automated 777-3) message] The sy stem which generated this result transmitted reference range : 150 - 328 10*3/ ?L. The reference r jesus was not used to interpret this result as normal/abnormal . MPV (test code = 9.6 fL 9.8-13 L 56107-9) NRBC/100 WBC (test See_Comment [Automat ed code = 7823825904) message] The system which generated this result transmitted reference range : 0.0 - 10.0 /100 WBCs. The refer ence range was not u sed to interpret th is result as normal/abnormal . NRBC x10^3 (test code <0.01 See_Comment [Auto mated = 7120743269) message] The s ystem which generated this result transmitted reference range : 10*3/?L. The reference range was not used to interpret this result as normal/abnormal . GRAN MAT (NEUT) % 79.4 % (test code = 770-8) IMM GRAN % (test code 0.40 % = 4772691576) LYMPH % (test code = 11.9 % 736-9) MONO % (test code = 6.8 % 5905-5) EOS % (test code = 1.2 % 713-8) BASO % (test code = 0.3 % 706-2) GRAN MAT x10^3(ANC) 8.00 10*3/uL 1.99-6.95 H (test code = 5839523296) IMM GRAN x10^3 (test 0.04 10*3/uL 0-0.06 code = 0648702161) LYMPH x10^3 (test code 1.20 10*3/uL 1.09-3.23 = 731-0) MONO x10^3 (test code 0.68 10*3/uL 0.36-1.02 = 742-7) EOS x10^3 (test code = 0.12 10*3/uL 0.06-0.53 711-2) BASO x10^3 (test code 0.03 10*3/uL 0.01-0.09 = 704-7) Lab Interpretation Abnormal (test code = 09004-2) [facility] GLUCOSE (AUTOMATED)2019-09-08 03:13:00 Test Item Value Reference Range Interpretation Comments POCT GLU (test code = 2998487559) 293 mg/dL 70-110 H Lab Interpretation (test code = Abnormal 74384-7) [facility] GLUCOSE (AUTOMATED)2019-09-08 01:49:00 Test Item Value Reference Range Interpretation Comments POCT GLU (test code = 9271779250) 303 mg/dL 70-110 H Lab Interpretation (test code = Abnormal 48171-4) [facility] GLUCOSE (AUTOMATED)2019-09-07 22:14:00 Test Item Value Reference Range Interpretation Comments POCT GLU (test code = 8767237341) 185 mg/dL 70-110 H Lab Interpretation (test code = Abnormal 23867-7) [facility] GLUCOSE (AUTOMATED)2019-09-07 17:31:00 Test Item Value Reference Range Interpretation Comments POCT GLU (test code = 4312964902) 216 mg/dL 70-110 H Lab Interpretation (test code = Abnormal 03704-0) [facility] 14:13:00 Test Item Value Reference Range Interpretation Comments SARS-CoV-2 Rapid ID NOW Not Detected Not Detected (test code = 02319-5) AKHIL (test code = AKHIL) ID NOW COVID-19 Assay is an isothermal nucleic acid amplification test intended for the qualitative detection of nucleic acid from SARS-CoV-2 viral RNA in nasopharyngeal (WEB MARKETING ANALYST) specimens. It is used under Emergency Use Authorization (EUA) by FDA. The limit of detection (LOD) of the assay is 125 Genome Equivalents/mL. A positive result is indicative of the presence of SARS-CoV-2 RNA. ?Clinical correlation with patient history and other diagnostic information is necessary to determine patient infection status. A negative (Not Detected) result does not preclude SARS-CoV-2 infection. In patients with clinical symptoms and other tests that are consistent with SARS-CoV-2 infection, negative results should be treated as presumptive negative and a new specimen should be tested with alternative PCR molecular test. Invalid: Please collect a new specimen for repeat patient testing if clinically indicated. Lab Interpretation Normal (test code = 29341-5) [facility] GLUCOSE (AUTOMATED)2019-09-07 13:53:00 Test Item Value Reference Range Interpretation Comments POCT GLU (test code = 3932935220) 163 mg/dL 70-110 H Lab Interpretation (test code = Abnormal 58992-6) [facility] CULTURE(AEROBIC/ANAEROBIC)2019-09-07 12:10:00 Test Item Value Reference Range Interpretation Comments TISSUE CULTURE No aerobic/anaerobic (test code = organisms isolated 93576-4) Gram stain (test No Polymorphonuclear code = 664-3) leukocytes [facility] METABOLIC PANEL (NA, K, CL, CO2, GLUCOSE, BUN, CREATININE, CA)2019-09-07 10:52:00 Test Item Value Reference Range Interpretation Comments NA (test code = 136 mmol/L 135-145 6120292878) K (test code = 4.7 mmol/L 3.5-5 Slight 0605895888) hemolysis CL (test code = 104 mmol/L 98-108 8614719061) CO2 TOTAL (test code 26 mmol/L 23-31 = 4072744241) AGAP (test code = 2-16 4971132270) BUN (test code = 31 mg/dL 7-23 H Slight 8209296634) hemolysis GLUCOSE (test code = 147 mg/dL 70-110 H 8069196064) CREATININE (test code 1.06 mg/dL 0.6-1.25 = 0998155128) CALCIUM (test code = 8.6 mg/dL 8.6-10.6 8471403488) eGFR Calculation mL/min/1.73m2 (Non-) (test code = 6931563132) eGFR Calculation mL/min/1.73m2 () (test code = 4751169753) AKHIL (test code = AKHIL) Association of Glomerular Filtration Rate (GFR) and Staging of Kidney Disease* + -----+ --------+ +| GFR (mL/min/1.73 m2) ?| With Kidney Damage ?| ?Without Kidney Damage+ +------- +---- --+| ?>90 ?| ?Stage one ?| ? Normal ?+ ------+ ---------+--------- +| ?60-89 ?| ?Stage two ?| ? Decreased GFR ? + -----+ --------+ +| ?30-59 ?| ?Stage three ?| ? Stage three ? + -----+ --------+ +| ?15-29 ?| ?Stage four ? | ? Stage four ?+ ------+ ---------+--------- +| ?<15 (or dialysis) ? ?| ?Stage five ? | ? Stage five ?+ ------+ ---------+--------- + *Each stage assumes the associated GFR level has been in effect for at least three months. ?Stages 1 to 5, with or without kidney disease, indicate chronic kidney disease. Notes: Determination of stages one and two (with eGFR >59mL/min/1.73 m2) requires estimation of kidney damage for at least three months as defined by structural or functional abnormalities of the kidney, manifested by either:Pathological abnormalities or Markers of kidney damage (including abnormalities in the composition of the blood or urine or abnormalities in imaging tests). Lab Interpretation Abnormal (test code = 08320-4) [facility]00 Test Item Value Reference Range Interpretation Comments MAGNESIUM (test code = 3697087618) 2.1 mg/dL 1.7-2.4 Lab Interpretation (test code = Normal 39849-9) [facility] WITH [id number] 10:39:00 Test Item Value Reference Range Interpretation Comments WBC (test code = See_Comment [Automated 6690-2) message] The sy stem which generated this result transmitted reference range : 4.20 - 10.70 10*3/?L. The reference range was not used to interpret this result as normal/abnormal . RBC (test code = See_Comment L [Automated 789-8) message] The sy stem which generated this result transmitted reference range : 4.26 - 5.52 10*6/?L. The reference range was not used to interpret this result as normal/abnormal . HGB (test code = 8.2 g/dL 12.2-16.4 L 718-7) HCT (test code = 27.3 % 38.4-49.3 L 4544-3) MCV (test code = 85.3 fL 81.7-95.6 787-2) MCH (test code = 25.6 pg 26.1-32.7 L 785-6) MCHC (test code = 30.0 g/dL 31.2-35 L 786-4) RDW-SD (test code = 83.7 fL 38.5-51.6 H 25688-9) RDW-CV (test code = 27.7 % 12.1-15.4 H 788-0) PLT (test code = See_Comment [Automated 777-3) message] The sy stem which generated this result transmitted reference range : 150 - 328 10*3/ ?L. The reference r jesus was not used to interpret this result as normal/abnormal . MPV (test code = 10.2 fL 9.8-13 02283-8) NRBC/100 WBC (test See_Comment [Automat ed code = 1140462764) message] The system which generated this result transmitted reference range : 0.0 - 10.0 /100 WBCs. The refer ence range was not u sed to interpret th is result as normal/abnormal . NRBC x10^3 (test code <0.01 See_Comment [Auto mated = 4183380853) message] The s ystem which generated this result transmitted reference range : 10*3/?L. The reference range was not used to interpret this result as normal/abnormal . GRAN MAT (NEUT) % 64.1 % (test code = 770-8) IMM GRAN % (test code 0.40 % = 9384685141) LYMPH % (test code = 24.4 % 736-9) MONO % (test code = 6.8 % 5905-5) EOS % (test code = 3.9 % 713-8) BASO % (test code = 0.4 % 706-2) GRAN MAT x10^3(ANC) 4.62 10*3/uL 1.99-6.95 (test code = 6771739135) IMM GRAN x10^3 (test 0.03 10*3/uL 0-0.06 code = 9822414066) LYMPH x10^3 (test code 1.76 10*3/uL 1.09-3.23 = 731-0) MONO x10^3 (test code 0.49 10*3/uL 0.36-1.02 = 742-7) EOS x10^3 (test code = 0.28 10*3/uL 0.06-0.53 711-2) BASO x10^3 (test code 0.03 10*3/uL 0.01-0.09 = 704-7) Lab Interpretation Abnormal (test code = 48441-4) [facility] GLUCOSE (AUTOMATED)2019-09-07 01:20:00 Test Item Value Reference Range Interpretation Comments POCT GLU (test code = 3922200002) 166 mg/dL 70-110 H Lab Interpretation (test code = Abnormal 16965-3) [facility] GLUCOSE (AUTOMATED)2019-09-06 21:00:00 Test Item Value Reference Range Interpretation Comments POCT GLU (test code = 0687848312) 380 mg/dL 70-110 H Lab Interpretation (test code = Abnormal 39683-1) [facility] GLUCOSE (AUTOMATED)2019-09-06 17:25:00 Test Item Value Reference Range Interpretation Comments POCT GLU (test code = 0035989191) 153 mg/dL 70-110 H Lab Interpretation (test code = Abnormal 08804-5) [facility] GLUCOSE (AUTOMATED)2019-09-06 13:22:00 Test Item Value Reference Range Interpretation Comments POCT GLU (test code = 9310770068) 147 mg/dL 70-110 H Lab Interpretation (test code = Abnormal 11282-4) [facility]ANAEROBIC[facility] 2019-09-06 12:07:00 Test Item Value Reference Range Interpretation Comments BODY FLUID CULT No organisms isolated (test code = 611-4) Gram stain (test No PMNs or Mononuclear code = 664-3) cells observed [facility] (NA, K, CL, CO2, GLUCOSE, BUN, CREATININE, CA)2019-09-06 11:47:00 Test Item Value Reference Range Interpretation Comments NA (test code = 138 mmol/L 135-145 2465153826) K (test code = 4.5 mmol/L 3.5-5 2382760065) CL (test code = 106 mmol/L 98-108 5923718371) CO2 TOTAL (test code = 24 mmol/L 23-31 3856536471) AGAP (test code = 2-16 3701970757) BUN (test code = 27 mg/dL 7-23 H 9278466019) GLUCOSE (test code = 163 mg/dL 70-110 H 9131734378) CREATININE (test code = 1.03 mg/dL 0.6-1.25 0760861877) CALCIUM (test code = 8.7 mg/dL 8.6-10.6 2049986562) eGFR Calculation mL/min/1.73m2 (Non-) (test code = 1219718549) eGFR Calculation mL/min/1.73m2 () (test code = 6163687997) AKHIL (test code = AKHIL) Association of Glomerular Filtration Rate (GFR) and Staging of Kidney Disease* + --+ --+ ------+| GFR (mL/min/1.73 m2) ?| With Kidney Damage ?| ?Without Kidney Damage+ --------+ --------+ +| ?>90 ?| ?Stage one ?| ? Normal ?+ ---+ ---+ -------+| ?60-89 ?| ?Stage two ?| ? Decreased GFR ? + --+ --+ ------+| ?30-59 ?| ?Stage three ?| ? Stage three ? + --+ --+ ------+| ?15-29 ?| ?Stage four ? | ? Stage four ?+ ---+ ---+ -------+| ?<15 (or dialysis) ? ?| ?Stage five ? | ? Stage five ?+ ---+ ---+ -------+ *Each stage assumes the associated GFR level has been in effect for at least three months. ?Stages 1 to 5, with or without kidney disease, indicate chronic kidney disease. Notes: Determination of stages one and two (with eGFR >59mL/min/1.73 m2) requires estimation of kidney damage for at least three months as defined by structural or functional abnormalities of the kidney, manifested by either:Pathological abnormalities or Markers of kidney damage (including abnormalities in the composition of the blood or urine or abnormalities in imaging tests). Lab Interpretation Abnormal (test code = 50540-5) [facility] 11:47:00 Test Item Value Reference Range Interpretation Comments MAGNESIUM (test code = 8555508340) 1.9 mg/dL 1.7-2.4 Lab Interpretation (test code = Normal 00294-9) [facility] / [id number] 11:23:00 Test Item Value Reference Range Interpretation Comments PROTIME PATIENT (test See_Comment [Auto mated message] code = 5964-2) The system wh ich generated this result transmitted ref erence range: 10.1 - 1 2.6 Seconds. The re ference range was not u sed to interpret this result as normal/abnor mal. INR (test code = 6301-6) Nor mal INR <1.1; Warfarin Therap eutic range 2.0 to 3. 0 or 2.5 to 3.5, dep ending upon the indica tions. Lab Interpretation (test Normal code = 90392-8) [facility] WITH [id number] 11:17:00 Test Item Value Reference Range Interpretation Comments WBC (test code = See_Comment [Automated 8490-2) message] The sy stem which generated this result transmitted reference range : 4.20 - 10.70 10*3/?L. The reference range was not used to interpret this result as normal/abnormal . RBC (test code = See_Comment L [Automated 789-8) message] The sy stem which generated this result transmitted reference range : 4.26 - 5.52 10*6/?L. The reference range was not used to interpret this result as normal/abnormal . HGB (test code = 8.7 g/dL 12.2-16.4 L 718-7) HCT (test code = 28.6 % 38.4-49.3 L 4544-3) MCV (test code = 85.6 fL 81.7-95.6 787-2) MCH (test code = 26.0 pg 26.1-32.7 L 785-6) MCHC (test code = 30.4 g/dL 31.2-35 L 786-4) RDW-SD (test code = 85.5 fL 38.5-51.6 H 16515-3) RDW-CV (test code = 28.0 % 12.1-15.4 H 788-0) PLT (test code = See_Comment [Automated 777-3) message] The sy stem which generated this result transmitted reference range : 150 - 328 10*3/ ?L. The reference r jesus was not used to interpret this result as normal/abnormal . MPV (test code = 10.5 fL 9.8-13 56945-5) NRBC/100 WBC (test See_Comment [Automat ed code = 2013950074) message] The system which generated this result transmitted reference range : 0.0 - 10.0 /100 WBCs. The refer ence range was not u sed to interpret th is result as normal/abnormal . NRBC x10^3 (test code <0.01 See_Comment [Auto mated = 5679311970) message] The s ystem which generated this result transmitted reference range : 10*3/?L. The reference range was not used to interpret this result as normal/abnormal . GRAN MAT (NEUT) % 66.9 % (test code = 770-8) IMM GRAN % (test code 0.60 % = 9881870043) LYMPH % (test code = 22.9 % 736-9) MONO % (test code = 6.8 % 5905-5) EOS % (test code = 2.5 % 713-8) BASO % (test code = 0.3 % 706-2) GRAN MAT x10^3(ANC) 4.86 10*3/uL 1.99-6.95 (test code = 9376161229) IMM GRAN x10^3 (test 0.04 10*3/uL 0-0.06 code = 0976741349) LYMPH x10^3 (test code 1.66 10*3/uL 1.09-3.23 = 731-0) MONO x10^3 (test code 0.49 10*3/uL 0.36-1.02 = 742-7) EOS x10^3 (test code = 0.18 10*3/uL 0.06-0.53 711-2) BASO x10^3 (test code <0.03 0.01-0.09 = 704-7) Lab Interpretation Abnormal (test code = 07273-1) [facility] GLUCOSE (AUTOMATED)2019-09-06 01:51:00 Test Item Value Reference Range Interpretation Comments POCT GLU (test code = 0270831475) 244 mg/dL 70-110 H Lab Interpretation (test code = Abnormal 50304-4) [facility] GLUCOSE (AUTOMATED)2019-09-05 22:10:00 Test Item Value Reference Range Interpretation Comments POCT GLU (test code = 0648611293) 204 mg/dL 70-110 H Lab Interpretation (test code = Abnormal 10789-5) [facility] GLUCOSE (AUTOMATED)2019-09-05 17:25:00 Test Item Value Reference Range Interpretation Comments POCT GLU (test code = 8145823658) 240 mg/dL 70-110 H Lab Interpretation (test code = Abnormal 92577-6) [facility] GLUCOSE (AUTOMATED)2019-09-05 13:20:00 Test Item Value Reference Range Interpretation Comments POCT GLU (test code = 2238607870) 142 mg/dL 70-110 H Lab Interpretation (test code = Abnormal 73629-3) [facility] METABOLIC PANEL (NA, K, CL, CO2, GLUCOSE, BUN, CREATININE, CA)2019-09-05 11:57:00 Test Item Value Reference Range Interpretation Comments NA (test code = 138 mmol/L 135-145 7829997272) K (test code = 4.3 mmol/L 3.5-5 5481253275) CL (test code = 106 mmol/L 98-108 1645323531) CO2 TOTAL (test code = 25 mmol/L 23-31 6049071057) AGAP (test code = 2-16 8826974048) BUN (test code = 21 mg/dL 7-23 2329077167) GLUCOSE (test code = 134 mg/dL 70-110 H 9449430468) CREATININE (test code = 1.03 mg/dL 0.6-1.25 5146826363) CALCIUM (test code = 8.7 mg/dL 8.6-10.6 6998095171) eGFR Calculation mL/min/1.73m2 (Non-) (test code = 0999702018) eGFR Calculation mL/min/1.73m2 () (test code = 7365202096) AKHIL (test code = AKHIL) Association of Glomerular Filtration Rate (GFR) and Staging of Kidney Disease* + --+ --+ ------+| GFR (mL/min/1.73 m2) ?| With Kidney Damage ?| ?Without Kidney Damage+ --------+ --------+ +| ?>90 ?| ?Stage one ?| ? Normal ?+ ---+ ---+ -------+| ?60-89 ?| ?Stage two ?| ? Decreased GFR ? + --+ --+ ------+| ?30-59 ?| ?Stage three ?| ? Stage three ? + --+ --+ ------+| ?15-29 ?| ?Stage four ? | ? Stage four ?+ ---+ ---+ -------+| ?<15 (or dialysis) ? ?| ?Stage five ? | ? Stage five ?+ ---+ ---+ -------+ *Each stage assumes the associated GFR level has been in effect for at least three months. ?Stages 1 to 5, with or without kidney disease, indicate chronic kidney disease. Notes: Determination of stages one and two (with eGFR >59mL/min/1.73 m2) requires estimation of kidney damage for at least three months as defined by structural or functional abnormalities of the kidney, manifested by either:Pathological abnormalities or Markers of kidney damage (including abnormalities in the composition of the blood or urine or abnormalities in imaging tests). Lab Interpretation Abnormal (test code = 37600-3) [facility] 11:57:00 Test Item Value Reference Range Interpretation Comments MAGNESIUM (test code = 0616659031) 1.9 mg/dL 1.7-2.4 Lab Interpretation (test code = Normal 18989-2) [facility] WITH [id number] 11:35:00 Test Item Value Reference Range Interpretation Comments WBC (test code = See_Comment [Automated 90-2) message] The sy stem which generated this result transmitted reference range : 4.20 - 10.70 10*3/?L. The reference range was not used to interpret this result as normal/abnormal . RBC (test code = See_Comment L [Automated 831-8) message] The sy stem which generated this result transmitted reference range : 4.26 - 5.52 10*6/?L. The reference range was not used to interpret this result as normal/abnormal . HGB (test code = 8.3 g/dL 12.2-16.4 L 718-7) HCT (test code = 26.9 % 38.4-49.3 L 4544-3) MCV (test code = 84.9 fL 81.7-95.6 787-2) MCH (test code = 26.2 pg 26.1-32.7 785-6) MCHC (test code = 30.9 g/dL 31.2-35 L 786-4) RDW-SD (test code = 83.5 fL 38.5-51.6 H 69108-2) RDW-CV (test code = 27.9 % 12.1-15.4 H 788-0) PLT (test code = See_Comment [Automated 777-3) message] The sy stem which generated this result transmitted reference range : 150 - 328 10*3/ ?L. The reference r jesus was not used to interpret this result as normal/abnormal . MPV (test code = 10.4 fL 9.8-13 55395-1) NRBC/100 WBC (test See_Comment [Automat ed code = 3298916669) message] The system which generated this result transmitted reference range : 0.0 - 10.0 /100 WBCs. The refer ence range was not u sed to interpret th is result as normal/abnormal . NRBC x10^3 (test code <0.01 See_Comment [Auto mated = 6214445033) message] The s ystem which generated this result transmitted reference range : 10*3/?L. The reference range was not used to interpret this result as normal/abnormal . GRAN MAT (NEUT) % 64.7 % (test code = 770-8) IMM GRAN % (test code 0.30 % = 6037863751) LYMPH % (test code = 24.3 % 736-9) MONO % (test code = 7.7 % 5905-5) EOS % (test code = 2.7 % 713-8) BASO % (test code = 0.3 % 706-2) GRAN MAT x10^3(ANC) 3.86 10*3/uL 1.99-6.95 (test code = 3469629705) IMM GRAN x10^3 (test <0.03 0-0.06 code = 2131936781) LYMPH x10^3 (test code 1.45 10*3/uL 1.09-3.23 = 731-0) MONO x10^3 (test code 0.46 10*3/uL 0.36-1.02 = 742-7) EOS x10^3 (test code = 0.16 10*3/uL 0.06-0.53 711-2) BASO x10^3 (test code <0.03 0.01-0.09 = 704-7) Lab Interpretation Abnormal (test code = 86315-4) [facility] CULTURE [id number] 02:01:00 Test Item Value Reference Range Interpretation Comments Blood Culture-Aerobic No organisms No growth Previo us (test code = 42516-0) isolated prelim inary verified result was Culture In Progress on 08/31/2019 at 000 1 CDTPrevious preliminary verified result was No growth a t 24 hours on 08/31/2019 at 210 1 CDTPrevious preliminary verified result was No growth a t 48 hours on 09/01/2019 at 21 01 CDTPrevious preliminary verified result was No growth a t 72 hours on 09/02/2019 at 21 01 CDT Blood No organisms No growth Previous Culture-Anaerobic isolated preliminar y (test code = 45501-3) verifi ed result was Culture In Progress on 08/31/2019 at 000 1 CDTPrevious preliminary verified result was No growth a t 24 hours on 08/31/2019 at 210 1 CDTPrevious preliminary verified result was No growth a t 48 hours on 09/01/2019 at 21 01 CDTPrevious preliminary verified result was No growth a t 72 hours on 09/02/2019 at 21 01 CDT Lab Interpretation Normal (test code = 47366-1) [facility] CULTURE [id number] 02:01:00 Test Item Value Reference Range Interpretation Comments Blood Culture-Aerobic No organisms No growth Previo us (test code = 88080-8) isolated prelim inary verified result was Culture In Progress on 08/31/2019 at 000 1 CDTPrevious preliminary verified result was No growth a t 24 hours on 08/31/2019 at 210 1 CDTPrevious preliminary verified result was No growth a t 48 hours on 09/01/2019 at 21 01 CDTPrevious preliminary verified result was No growth a t 72 hours on 09/02/2019 at 21 01 CDT Blood No organisms No growth Previous Culture-Anaerobic isolated preliminar y (test code = 00949-4) verifi ed result was Culture In Progress on 08/31/2019 at 000 1 CDTPrevious preliminary verified result was No growth a t 24 hours on 08/31/2019 at 210 1 CDTPrevious preliminary verified result was No growth a t 48 hours on 09/01/2019 at 21 01 CDTPrevious preliminary verified result was No growth a t 72 hours on 09/02/2019 at 21 01 CDT Lab Interpretation Normal (test code = 92900-8) [facility] GLUCOSE (AUTOMATED)2019-09-05 01:38:00 Test Item Value Reference Range Interpretation Comments POCT GLU (test code = 1489538221) 185 mg/dL 70-110 H Lab Interpretation (test code = Abnormal 02623-7) [facility] GLUCOSE (AUTOMATED)2019-09-04 22:31:00 Test Item Value Reference Range Interpretation Comments POCT GLU (test code = 6895039677) 149 mg/dL 70-110 H Lab Interpretation (test code = Abnormal 93108-3) [facility] GLUCOSE (AUTOMATED)2019-09-04 17:17:00 Test Item Value Reference Range Interpretation Comments POCT GLU (test code = 8980656670) 314 mg/dL 70-110 H Lab Interpretation (test code = Abnormal 66234-6) [facility] GLUCOSE (AUTOMATED)2019-09-04 13:33:00 Test Item Value Reference Range Interpretation Comments POCT GLU (test code = 2702215271) 137 mg/dL 70-110 H Lab Interpretation (test code = Abnormal 89302-6) [facility] GLUCOSE (AUTOMATED)2019-09-04 13:15:00 Test Item Value Reference Range Interpretation Comments POCT GLU (test code = 1024630885) 130 mg/dL 70-110 H Lab Interpretation (test code = Abnormal 62349-8) [facility] METABOLIC PANEL (NA, K, CL, CO2, GLUCOSE, BUN, CREATININE, CA)2019-09-04 09:43:00 Test Item Value Reference Range Interpretation Comments NA (test code = 140 mmol/L 135-145 8705979482) K (test code = 4.0 mmol/L 3.5-5 8894884299) CL (test code = 110 mmol/L 98-108 H 9952646879) CO2 TOTAL (test code = 24 mmol/L 23-31 6301062428) AGAP (test code = 2-16 4286501766) BUN (test code = 18 mg/dL 7-23 7074297404) GLUCOSE (test code = 107 mg/dL 70-110 5684824295) CREATININE (test code = 0.95 mg/dL 0.6-1.25 4277950650) CALCIUM (test code = 8.4 mg/dL 8.6-10.6 L 4245332973) eGFR Calculation mL/min/1.73m2 (Non-) (test code = 8133377479) eGFR Calculation mL/min/1.73m2 () (test code = 0665175083) AKHIL (test code = AKHIL) Association of Glomerular Filtration Rate (GFR) and Staging of Kidney Disease* + --+ --+ ------+| GFR (mL/min/1.73 m2) ?| With Kidney Damage ?| ?Without Kidney Damage+ --------+ --------+ +| ?>90 ?| ?Stage one ?| ? Normal ?+ ---+ ---+ -------+| ?60-89 ?| ?Stage two ?| ? Decreased GFR ? + --+ --+ ------+| ?30-59 ?| ?Stage three ?| ? Stage three ? + --+ --+ ------+| ?15-29 ?| ?Stage four ? | ? Stage four ?+ ---+ ---+ -------+| ?<15 (or dialysis) ? ?| ?Stage five ? | ? Stage five ?+ ---+ ---+ -------+ *Each stage assumes the associated GFR level has been in effect for at least three months. ?Stages 1 to 5, with or without kidney disease, indicate chronic kidney disease. Notes: Determination of stages one and two (with eGFR >59mL/min/1.73 m2) requires estimation of kidney damage for at least three months as defined by structural or functional abnormalities of the kidney, manifested by either:Pathological abnormalities or Markers of kidney damage (including abnormalities in the composition of the blood or urine or abnormalities in imaging tests). Lab Interpretation Abnormal (test code = 40918-2) [facility] 09[facility]00 Test Item Value Reference Range Interpretation Comments MAGNESIUM (test code = 7359256728) 1.9 mg/dL 1.7-2.4 Lab Interpretation (test code = Normal 58324-0) [facility] WITH [id number] 09:30:00 Test Item Value Reference Range Interpretation Comments WBC (test code = See_Comment [Automated 6690-2) message] The sy stem which generated this result transmitted reference range : 4.20 - 10.70 10*3/?L. The reference range was not used to interpret this result as normal/abnormal . RBC (test code = See_Comment L [Automated 789-8) message] The sy stem which generated this result transmitted reference range : 4.26 - 5.52 10*6/?L. The reference range was not used to interpret this result as normal/abnormal . HGB (test code = 8.6 g/dL 12.2-16.4 L 718-7) HCT (test code = 28.4 % 38.4-49.3 L 4544-3) MCV (test code = 84.8 fL 81.7-95.6 787-2) MCH (test code = 25.7 pg 26.1-32.7 L 785-6) MCHC (test code = 30.3 g/dL 31.2-35 L 786-4) RDW-SD (test code = 85.0 fL 38.5-51.6 H 60832-9) RDW-CV (test code = 28.2 % 12.1-15.4 H 788-0) PLT (test code = See_Comment [Automated 777-3) message] The sy stem which generated this result transmitted reference range : 150 - 328 10*3/ ?L. The reference r jesus was not used to interpret this result as normal/abnormal . MPV (test code = 10.1 fL 9.8-13 61008-2) NRBC/100 WBC (test See_Comment [Automat ed code = 5707521745) message] The system which generated this result transmitted reference range : 0.0 - 10.0 /100 WBCs. The refer ence range was not u sed to interpret th is result as normal/abnormal . NRBC x10^3 (test code <0.01 See_Comment [Auto mated = 8551831784) message] The s ystem which generated this result transmitted reference range : 10*3/?L. The reference range was not used to interpret this result as normal/abnormal . GRAN MAT (NEUT) % 62.1 % (test code = 770-8) IMM GRAN % (test code 0.40 % = 6817468345) LYMPH % (test code = 27.4 % 736-9) MONO % (test code = 7.1 % 5905-5) EOS % (test code = 2.7 % 713-8) BASO % (test code = 0.3 % 706-2) GRAN MAT x10^3(ANC) 4.22 10*3/uL 1.99-6.95 (test code = 1349695806) IMM GRAN x10^3 (test 0.03 10*3/uL 0-0.06 code = 9288269866) LYMPH x10^3 (test code 1.86 10*3/uL 1.09-3.23 = 731-0) MONO x10^3 (test code 0.48 10*3/uL 0.36-1.02 = 742-7) EOS x10^3 (test code = 0.18 10*3/uL 0.06-0.53 711-2) BASO x10^3 (test code <0.03 0.01-0.09 = 704-7) Lab Interpretation Abnormal (test code = 02480-3) [facility] GLUCOSE (AUTOMATED)2019-09-04 02:01:00 Test Item Value Reference Range Interpretation Comments POCT GLU (test code = 7268983858) 185 mg/dL 70-110 H Lab Interpretation (test code = Abnormal 27014-6) [facility] GLUCOSE (AUTOMATED)2019-09-03 22:38:00 Test Item Value Reference Range Interpretation Comments POCT GLU (test code = 6271282344) 209 mg/dL 70-110 H Lab Interpretation (test code = Abnormal 51673-6) [facility] [id number] 18:24:00 Test Item Value Reference Range Interpretation Comments Case Report (test code Surgical Pathology ? ? = [id number]) ?Case: [id number] ? Authorizing Provider: ?Ángel Peña MD ? Collected: ? 09/02/2019 1125 ?Ordering Location: ? ? [facility] Received: ?09/02/2019 1341 ? (DC 11D) ?Pathologist: ? Jay Haider MD ?Specimen: ? ?BONE ? Final Diagnosis (test g4iixHGxHCWco2drVTAowY code = 6201211160) FuZzEwMzNcZnRuYmpcdWMx VHiypjUnFYqvq5OcP9VoBb AwMFxhbnNpXGRlZmxhbmcx GQVjXGK0cqPrWIClQGlkYJ TpFLrnWa3oyXWhkLgqXyMx TLPpl3tylvNCumrcdEu6g9 meQVGxPeG1lCPmGBgaP1il xxVshFRyXNGfQCt4lB03VB YirJ6sgRPeHVxpmiRvGOyr ulQqxoGtEvr4YTLwH3tfWH FeTPNfQ8AnRJ4uKYAmOrv9 ZEP0ZUU0pKhsy5K1oRYkoH XbrWffDiUtOdKwDAHIz7Yp XOj5rFjfD0TeQEFrMyK8dX QgUGFyYWdyYXBoIEZvbnQ7 vL53HQmzcvH9pRZfx5Ysj4 1qp043gI7vuEIbVCJ5DIXu QNHxdUSyCTNbGVP8PLMguE DuF1zqFNzxJG0dpamnGFC0 MFxtYXJndDcyMFxtYXJnYj KqbKAzKFBcyOpoZMxoe259 YZZ5KkQcIX0oQ0Jaa2O0dB 9maXRcZGVmdGFiNzIwXGZv ge7imOMdWSrhp7CyCUS3dc K6rWRpaRTmJCQaLQ77Menl k2LoWmftWLF4GXXtdxNac0 Iga6joTqFsxoDdS9kgQ1Es ZHJoZWFkXHBnYnJkcmZvb3 Soe1LayIUapSt0c1toUENx SCCihTtnx0jhLOM3ITDfW9 I3gUOao9ddXAdaSWVpsDY3 xoOyQXAuhYSkF6TtqP9oGY mcTT2adgv0k6tyKmAlWK8f bbcas5npOGiuPVKuCOV9Db PrSAUkr8ZbgyiiIpGjw0Bg vATwXYqiV31cm756AENpsg DcA7aorXKlhbjavMWtwhsz MFxmczIwXHFsXHBsYWluXG WhOLIcUsAoiXlnmV1rOcAv YhRpVEgkDFYeET5fPq4RFO hsNdlCXVNtSp9XUONYOYif QklPUFNZOlxwYXIgICAgLS TQDsDCLKVQGXCRRjMOFJ4T G56jZ7EGUZmLVWuKMLLDZV FAL09HBMyOMKczDQCiMVti OJLpKAEzXsUrDx8pTVEEOL 2XM5qAN6NTLXWKQS2CXCfo bGFpblxmMFxmczIwICBccG OrYTCbZC1tWe5oI4OIOQ2Q WUVMSVRJUyBJREVOVElGSU VEXHBhciAgICAtIEFERElU IZ1AEVxcULAGEDaOVRSQRO 9ZHaATSONthn86OER8SzRc q5G5HZTsBdPiROCgCR2brV yhHRIdVB2uTWFoK5kjwC1e aov7RtDbXADuPoB8SZZznm S6Ptt4PIZzACuwm3gef0Xo F6PojWZblMh4t1shAGMkGy G7eFCxANwwN8axitRjgZBd SUXrGVt8oHjfBiGbBMLym6 lzcyBcZmNoYXJzZXQwIENh uOsxbvh1jZ07ATLnaQ9mvP LuHFrieqPaTlE8QOfmZQTp PhC5NKSgdUUmWKGqO9eqFP QwXGdyZWVuMFxibHVlMCA7 dLcaz2S8sIXtzNMzkKvoMw PeCuWwZYZEc3YyQTw8hQur O4FzZGRpVxM3xGTcRGRuOF frRFKnVOQyhoF8gU63VOwu moQ4dCGmw0Kgq16ql854vN 1daMJtGQF7IELgFKGzbUXz KKKhFWX9TICyaALqB2idLS HgYY9jfahtDIbmZZllAWLv tFZ0QGVkzCLpA8BdBLYsAE sjMVAsctn6VuAaSl9mzDSw oHdyUGyfu6ptr6tasLWyLf u2EGVbRrClIokoBAsen0Aq l6zqVGJnbr5wIIS3qGMkoC sjr3S3kCCrJPMuuJRmgoNn OIXzDjY7LWivLN3ywv91DR YiMSU3hy6vjHHqdUajciZe vJMbSLrnP2KjTYLmm830RX RsY1YvPNHpb0J7qjUnTpIq XHGbzVB7nmL2GUDeXHc9jI SeezQ9fgIytUFkG8iolW9g FASoKR9tepdzx8vsBVmyUP mqTJOdjKS2ltA7FYJmwCGh S7HjqE0uEIIcTAwgQXVjva p0EzViHp1wzLRinVrcUVik YmtwYWdlXHBnbmNvbnRccG duZGVjXHBsYWluXHBsYWlu XGYwXGZzMjRccWxccGxhaW 8lJxDfHpIfATuxPS4xPDIn Y2qotKSwDPPzFEFwU6sjIa XgnF9xxMzbWCtpEkAnSdDm MFxwYXIgSSBoYXZlIHBlcn IjscVecIbkytT4uQK6VTEw PLmnXZLlUONfkNNfot0qtX ivPKHaAL1qBIElavKpCUgw zRwrOUzgHSP2POSxxENxgL MgbWFkZSBieSByZXNpZGVu bYCwBJJhnRpwq1Mzi7LjaX G9yT4bb8doj5SdDOJxgCF2 DZ45hfI2xL0pLOBmWH1kRC ItSE9ofXLtmHLsVGFhd19n dGhpcyByZXBvcnQuXHBsYW luXGYyXGZzMjhcbGFuZzEw MzNcaGljaFxmMlxkYmNoXG ItSBinH4kcGrQoJyLhJDhb YXJ9fQ== Clinical Information 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 (test code = 2432514908) Gross Description (test u8mxlHMnMXFvvYCoJdRlBD code = 7085873448) TdGHKbe9suNULgrBNjIjEz MzNcZnRuYmpcdWMxXGRlZm Iyp3sjf608cZPxn1diJYQk NdZ3nZNzMWCdpYVvL219YB RrPUycc7rdu4WwUQYloJHt o8K5GRZDzwmkpPj0iElrG9 3ik5B0KkcaA1uuTSNbSOup UEWzFKznnPBlOFM4UVLyXV B3WPqyshBqaoO4WUckmUAf AtM0WWs5v8prkSslATYfHD M7l9dbIAvakqVkNJ9lxu8g yYl3g6bwjgZgMWFeFMWcwP PVKVGoU1DklWrgHk4avKj2 oCpaEejeOXG2Tsh0QH2sqs 56vmt9tPcmSMQsrlhzQsQ3 SPbyKYUqjvcpJGy2YQsnQD CfxTIyKWFtyEZwP6NpUBfc GL0nbns0NnFjEN3zptkeRK gzTTQvMPW0KlNxOJBrx1Ml fhsxAzSynq1cms97JRB6m3 DtiEaqUWJ7XGB7LhPdDs5r eAAkSNJmBM6fJuMuvQXnUM Pwpy64bWzoXZhyeoUecH8q QbWoIR7sqGzgk08sDUIxEW 9vpA1hrr6phySvVKwaiDEq uEV6nsomRZP0KSNqjdAcz5 CvIHR4uo1tgOCceQhhcpQw qHRfKKxyY4OeAJZev983PR CyC8NbHLZir0E7auOmXfDa HSTlrUS3luH6TMSeBUn7xV UqnnY4yeNtbTYoN1rdfM7u WMhoPH1tmcjmp5olRNB3KK glBQLsmUO1xizcVDldUYGu YpN0xsQisBPvMKVtuIdoVU vij855GGI0RmRkWSEvf8Ji V2WuqVgjQ65jhKooS61rAG AfsGqqjV7huPwowA4gKnNd FbRlPVcfINOmXQqshCX0Hy qqeU30eUUpIMMgGHMpOXjq MJNrNFLeYhGdsMlgkJ0vUj QtFnHwJWRPzZGugC3qodWT APrmSSAlS3PsarPtFRgoSI Fqnv7vtKcfDAluFeYhcJMb IHdpdGggdGhlIHBhdGllbn KtsMjshY4eRxReBtThAJw4 ODIxNyBcJzkyXHBsYWluXG MpNYJoNoTjetJqMD1kORTB CBVliY6kDRCkWyBraiZjeP evmB9jFoNhPnYkLHt4JBYc XNCpQiq3CJCvHTugHYJfUB DlMkXvNNTgs6cavmW6FVVj ZnJvbSByaWdodCBzZWNvbm OmcQ7zJGRtFLVob35ueYZ7 cyBvZiBhIHNpbmdsZSBjeW nplpGwmLEgtGVgy4J6hW9u LQ0eCPKiFQTazR9iBHUumr IwOEWzDXQ2ITSuVfK2PTXz MiBjbSkuIFRoZSBzcGVjaW 1lbiBpcyBlbnRpcmVseSBz hLBfnGB1TUKswN6jGOEmbW 8bw6vpSvPlYNodSKUfJWAe a6duc1thyvajEWBeCExdkJ DkM5A8xL1jTfemRUTnkAMm ZFxwbGFpblxmMFxmczIwXH BsYWluXGYxXGZzMjAgUGF1 eUGWyT98KDTeRHFnWYWhvC fyaN7oxPC3ETKcs9szoMVi dClccGFyXHFsXHBsYWluXG AbTUJvCmMorCsxrA9iZqBb ZnMyMFxwYXJ9 Embedded Images (test code = 8990685123) [facility] WITH [id number] 18:21:18Technically successful fluoroscopically-guided percutaneousbone biopsy of the proximal phalanx of the right second toe. [place] to Executive Order [place] 09 [place] emergency rule 22 [place]187.57(c), this procedure was deemed medicallynecessary to address a medical condition (right second toe osteomyelitis)which places this patient at risk for serious adverse medical consequencesor . Preliminary Report Dictated by Resident: Wayne Solorio. As the attending radiologist, I, Dr. Mikal Florez, was present inthe room during the critical portions of the procedure. IMikal MD., have reviewed this study and agree with theabove report.EXAMINATION: FLUOROSCOPY-GUIDED BONE BIOPSY HISTORY/INDICATION: Osteomyelitis of the proximal phalanx of the rightsecond toe, history of amputation at the proximal phalanx of the rightsecond toe. SEDATION: IV analgesia was used with IV fentanyl. 1% subcutaneouslidocaine. See the EPIC note for the sedation time. RADIATION DOSE: 0.1 mGy. TECHNIQUE: The risks, benefits and alternatives were discussed and informedconsent was obtained. Prior to beginning the procedure, [place] Protocolwas performed to confirm the patient's identity and the planned procedure.Maximum sterile barriers including cap, mask, hand hygiene, sterile gloves,sterile gown, large sterile drape and cutaneous antisepsis were used. The proximal phalanx of the right second toe was localized usingfluoroscopic guidance. A safe route, free of skin ulceration wasidentified. The area over this site was anesthetized with 1 percentlidocaine, and a small skin incision was made. A bone access tray was utilized. An 11 gauge coaxial needle was advancedinto the targeted bone using real-time fluoroscopic guidance. A core needlebiopsy sample was obtained, half of which was sent for surgical pathologyand half for microbiology. In addition, small amount of aspirate was alsoobtained for microbiology analysis. At the end of the procedure, the biopsy device was removed and pressureheld until hemostasis was achieved. The patient tolerated the procedurewell without immediate complications and was subsequently returned to theinpatient unit in stable condition. COMPLICATIONS: None immediate. ESTIMATED BLOOD LOSS: Minimal. CONDITION: Stable. DISCHARGED TO: Recovery and then returned to inpatient unit. FINDINGS:Fluoroscopy images show an appropriate target for bone biopsy. Evidence ofprior amputation at the proximal phalanx of the right second toe. [facility], Radiant Results Inft User - 09/03/2019 1:22 PM CDTEXAMINATION: FLUOROSCOPY- GUIDED BONE BIOPSY HISTORY/INDICATION: Osteomyelitis of the proximal phalanx of the rightsecond toe, history of amputation at the proximal phalanx of the rightsecond toe.SEDATION: IV analgesia was used with IV fentanyl. 1% subcutaneouslidocaine. See the EPIC note for the sedation time. RADIATION DOSE: 0.1 mGy.TECHNIQUE: The risks, benefits and alternatives were discussed and informedconsent was obtained. Prior to beginning the procedure, [place] Protocolwas performed to confirm the patient's identity and the planned procedure.Maximum sterile barriers including cap, mask, hand hygiene, sterile gloves,sterile gown, large sterile drape andcutaneous antisepsis were used. The proximal phalanx of the right second toe was localized usingfluoroscopic guidance. A safe route, free of skin ulceration wasidentified. The area over this site was anesthetized with 1 percentlidocaine, and a small skin incision was made. A bone access tray was utilized. An 11 gauge coaxial needle was advancedinto the targeted bone using real-time fluoroscopic guidance. A core needlebiopsy sample was obtained, half of which was sent for surgical pathologyand half for microbiology. In addition, small amount of aspirate was alsoobtained for microbiology analysis.At the end of the procedure, the biopsy device was removed and pressureheld until hemostasis was achieved. The patient tolerated the procedurewell without immediate complications and was subsequently returned to theinpatient unit in stable condition.COMPLICATIONS: None immediate.ESTIMATED BLOOD LOSS: Minimal.CONDITION: Stable.DISCHARGED TO: Recovery and then returned to inpatient unit.FINDINGS:Fluoroscopy images show an appropriate target for bone biopsy. Evidence ofprior amputation at the proximal phalanx of the right second toe.IMPRESSIONTechnically successful fluoroscopically-guided percutaneousbonebiopsy of the proximal phalanx of the right second toe.According to [place] Order [place] 09 [place] emergency rule 22 [place]187.57(c), this procedure was deemed medicallynecessary to address a medical condition (right second toe osteomyelitis)which places this patient at risk for serious adverse medical consequencesor .Preliminary Report Dictated by Resident: Wayne Solorio.As t he attending radiologist, I, Dr. Mikal Florez, was present inthe room during the critical portions of the procedure.I, Mikal Florez MD., have reviewed this study and agree with theabove report.[facility] GLUCOSE (AUTOMATED)2019-09-03 17:55:00 Test Item Value Reference Range Interpretation Comments POCT GLU (test code = 5252720829) 185 mg/dL 70-110 H Lab Interpretation (test code = Abnormal 74435-0) [facility] GLUCOSE (AUTOMATED)2019-09-03 14:11:00 Test Item Value Reference Range Interpretation Comments POCT GLU (test code = 1916671258) 139 mg/dL 70-110 H Lab Interpretation (test code = Abnormal 25367-7) [facility] METABOLIC PANEL (NA, K, CL, CO2, GLUCOSE, BUN, CREATININE, CA)2019-09-03 11:36:00 Test Item Value Reference Range Interpretation Comments NA (test code = 138 mmol/L 135-145 2103430601) K (test code = 4.5 mmol/L 3.5-5 9972930183) CL (test code = 107 mmol/L 98-108 3354284428) CO2 TOTAL (test code = 24 mmol/L 23-31 1963750329) AGAP (test code = 2-16 6914446571) BUN (test code = 19 mg/dL 7-23 0734459544) GLUCOSE (test code = 153 mg/dL 70-110 H 5015927906) CREATININE (test code = 1.13 mg/dL 0.6-1.25 7908976100) CALCIUM (test code = 9.0 mg/dL 8.6-10.6 2793707464) eGFR Calculation mL/min/1.73m2 (Non-) (test code = 4702349236) eGFR Calculation mL/min/1.73m2 () (test code = 7316044510) AKHIL (test code = AKHIL) Association of Glomerular Filtration Rate (GFR) and Staging of Kidney Disease* + --+ --+ ------+| GFR (mL/min/1.73 m2) ?| With Kidney Damage ?| ?Without Kidney Damage+ --------+ --------+ +| ?>90 ?| ?Stage one ?| ? Normal ?+ ---+ ---+ -------+| ?60-89 ?| ?Stage two ?| ? Decreased GFR ? + --+ --+ ------+| ?30-59 ?| ?Stage three ?| ? Stage three ? + --+ --+ ------+| ?15-29 ?| ?Stage four ? | ? Stage four ?+ ---+ ---+ -------+| ?<15 (or dialysis) ? ?| ?Stage five ? | ? Stage five ?+ ---+ ---+ -------+ *Each stage assumes the associated GFR level has been in effect for at least three months. ?Stages 1 to 5, with or without kidney disease, indicate chronic kidney disease. Notes: Determination of stages one and two (with eGFR >59mL/min/1.73 m2) requires estimation of kidney damage for at least three months as defined by structural or functional abnormalities of the kidney, manifested by either:Pathological abnormalities or Markers of kidney damage (including abnormalities in the composition of the blood or urine or abnormalities in imaging tests). Lab Interpretation Abnormal (test code = 39481-4) [facility] 11:36:00 Test Item Value Reference Range Interpretation Comments MAGNESIUM (test code = 2652850931) 2.1 mg/dL 1.7-2.4 Lab Interpretation (test code = Normal 38475-7) [facility] WITH [id number] 11:08:00 Test Item Value Reference Range Interpretation Comments WBC (test code = See_Comment [Automated 6690-2) message] The sy stem which generated this result transmitted reference range : 4.20 - 10.70 10*3/?L. The reference range was not used to interpret this result as normal/abnormal . RBC (test code = See_Comment L [Automated 789-8) message] The sy stem which generated this result transmitted reference range : 4.26 - 5.52 10*6/?L. The reference range was not used to interpret this result as normal/abnormal . HGB (test code = 8.2 g/dL 12.2-16.4 L 718-7) HCT (test code = 27.4 % 38.4-49.3 L 4544-3) MCV (test code = 84.3 fL 81.7-95.6 787-2) MCH (test code = 25.2 pg 26.1-32.7 L 785-6) MCHC (test code = 29.9 g/dL 31.2-35 L 786-4) RDW-SD (test code = 85.2 fL 38.5-51.6 H 11169-4) RDW-CV (test code = 28.6 % 12.1-15.4 H 788-0) PLT (test code = See_Comment L [Automated 777-3) message] The sy stem which generated this result transmitted reference range : 150 - 328 10*3/ ?L. The reference r jesus was not used to interpret this result as normal/abnormal . MPV (test code = 10.2 fL 9.8-13 06704-0) NRBC/100 WBC (test See_Comment [Automat ed code = 9585908416) message] The system which generated this result transmitted reference range : 0.0 - 10.0 /100 WBCs. The refer ence range was not u sed to interpret th is result as normal/abnormal . NRBC x10^3 (test code <0.01 See_Comment [Auto mated = 4568654787) message] The s ystem which generated this result transmitted reference range : 10*3/?L. The reference range was not used to interpret this result as normal/abnormal . GRAN MAT (NEUT) % 63.3 % (test code = 770-8) IMM GRAN % (test code 0.30 % = 8441513667) LYMPH % (test code = 25.9 % 736-9) MONO % (test code = 7.5 % 5905-5) EOS % (test code = 2.7 % 713-8) BASO % (test code = 0.3 % 706-2) GRAN MAT x10^3(ANC) 4.22 10*3/uL 1.99-6.95 (test code = 0256291184) IMM GRAN x10^3 (test <0.03 0-0.06 code = 6775954633) LYMPH x10^3 (test code 1.73 10*3/uL 1.09-3.23 = 731-0) MONO x10^3 (test code 0.50 10*3/uL 0.36-1.02 = 742-7) EOS x10^3 (test code = 0.18 10*3/uL 0.06-0.53 711-2) BASO x10^3 (test code <0.03 0.01-0.09 = 704-7) Lab Interpretation Abnormal (test code = 73455-5) [facility] GLUCOSE (AUTOMATED)2019-09-03 01:53:00 Test Item Value Reference Range Interpretation Comments POCT GLU (test code = 3444627311) 213 mg/dL 70-110 H Lab Interpretation (test code = Abnormal 66795-6) [facility] GLUCOSE (AUTOMATED)2019-09-02 22:29:00 Test Item Value Reference Range Interpretation Comments POCT GLU (test code = 2180780610) 275 mg/dL 70-110 H Lab Interpretation (test code = Abnormal 27828-1) [facility] GLUCOSE (AUTOMATED)2019-09-02 17:57:00 Test Item Value Reference Range Interpretation Comments POCT GLU (test code = 3457689383) 146 mg/dL 70-110 H Lab Interpretation (test code = Abnormal 35435-3) [facility] GLUCOSE (AUTOMATED)2019-09-02 13:10:00 Test Item Value Reference Range Interpretation Comments POCT GLU (test code = 7612045995) 118 mg/dL 70-110 H Lab Interpretation (test code = Abnormal 39235-9) [facility] METABOLIC PANEL (NA, K, CL, CO2, GLUCOSE, BUN, CREATININE, CA)2019-09-02 11:30:00 Test Item Value Reference Range Interpretation Comments NA (test code = 138 mmol/L 135-145 6777707824) K (test code = 4.5 mmol/L 3.5-5 7508742341) CL (test code = 109 mmol/L 98-108 H 3328695989) CO2 TOTAL (test code = 25 mmol/L 23-31 2599179020) AGAP (test code = 2-16 7780851995) BUN (test code = 23 mg/dL 7-23 0854626684) GLUCOSE (test code = 118 mg/dL 70-110 H 9818659056) CREATININE (test code = 1.09 mg/dL 0.6-1.25 7687006633) CALCIUM (test code = 8.4 mg/dL 8.6-10.6 L 9871695173) eGFR Calculation mL/min/1.73m2 (Non-) (test code = 2598037902) eGFR Calculation mL/min/1.73m2 () (test code = 7649975657) AKHIL (test code = AKHIL) Association of Glomerular Filtration Rate (GFR) and Staging of Kidney Disease* + --+ --+ ------+| GFR (mL/min/1.73 m2) ?| With Kidney Damage ?| ?Without Kidney Damage+ --------+ --------+ +| ?>90 ?| ?Stage one ?| ? Normal ?+ ---+ ---+ -------+| ?60-89 ?| ?Stage two ?| ? Decreased GFR ? + --+ --+ ------+| ?30-59 ?| ?Stage three ?| ? Stage three ? + --+ --+ ------+| ?15-29 ?| ?Stage four ? | ? Stage four ?+ ---+ ---+ -------+| ?<15 (or dialysis) ? ?| ?Stage five ? | ? Stage five ?+ ---+ ---+ -------+ *Each stage assumes the associated GFR level has been in effect for at least three months. ?Stages 1 to 5, with or without kidney disease, indicate chronic kidney disease. Notes: Determination of stages one and two (with eGFR >59mL/min/1.73 m2) requires estimation of kidney damage for at least three months as defined by structural or functional abnormalities of the kidney, manifested by either:Pathological abnormalities or Markers of kidney damage (including abnormalities in the composition of the blood or urine or abnormalities in imaging tests). Lab Interpretation Abnormal (test code = 93167-8) [facility] 11:30:00 Test Item Value Reference Range Interpretation Comments MAGNESIUM (test code = 0564701377) 2.2 mg/dL 1.7-2.4 Lab Interpretation (test code = Normal 26106-1) [facility] / [id number] 11:14:00 Test Item Value Reference Range Interpretation Comments PROTIME PATIENT (test See_Comment H [Auto mated message] code = 5964-2) The system [employer] generated this result transmitted ref erence range: 10.1 - 1 2.6 Seconds. The reference range was not used to int erpret this result as normal/abnormal . INR (test code = 6301-6) Nor mal INR <1.1; Warfarin Therap eutic range 2.0 to 3. 0 or 2.5 to 3.5, dep ending upon the indica tions. Lab Interpretation (test Abnormal code = 80929-2) [facility] WITH [id number] 11:07:00 Test Item Value Reference Range Interpretation Comments WBC (test code = See_Comment [Automated 6690-2) message] The sy stem which generated this result transmitted reference range : 4.20 - 10.70 10*3/?L. The reference range was not used to interpret this result as normal/abnormal . RBC (test code = See_Comment L [Automated 789-8) message] The sy stem which generated this result transmitted reference range : 4.26 - 5.52 10*6/?L. The reference range was not used to interpret this result as normal/abnormal . HGB (test code = 7.9 g/dL 12.2-16.4 L 718-7) HCT (test code = 26.2 % 38.4-49.3 L 4544-3) MCV (test code = 84.2 fL 81.7-95.6 787-2) MCH (test code = 25.4 pg 26.1-32.7 L 785-6) MCHC (test code = 30.2 g/dL 31.2-35 L 786-4) RDW-SD (test code = 85.4 fL 38.5-51.6 H 57157-4) RDW-CV (test code = 28.7 % 12.1-15.4 H 788-0) PLT (test code = See_Comment L [Automated 777-3) message] The sy stem which generated this result transmitted reference range : 150 - 328 10*3/ ?L. The reference r jesus was not used to interpret this result as normal/abnormal . MPV (test code = 11.0 fL 9.8-13 42338-6) NRBC/100 WBC (test See_Comment [Automat ed code = [id number]) message] The system which generated this result transmitted reference range : 0.0 - 10.0 /100 WBCs. The refer ence range was not u sed to interpret th is result as normal/abnormal . NRBC x10^3 (test code <0.01 See_Comment [Auto mated = [id number]) message] The s ystem which generated this result transmitted reference range : 10*3/?L. The reference range was not used to interpret this result as normal/abnormal . GRAN MAT (NEUT) % 65.8 % (test code = 770-8) IMM GRAN % (test code 0.40 % = [id number]) LYMPH % (test code = 21.3 % 736-9) MONO % (test code = 8.7 % 5905-5) EOS % (test code = 3.4 % 713-8) BASO % (test code = 0.4 % 706-2) GRAN MAT x10^3(ANC) 4.62 10*3/uL 1.99-6.95 (test code = [id number]) IMM GRAN x10^3 (test 0.03 10*3/uL 0-0.06 code = [id number]) LYMPH x10^3 (test code 1.50 10*3/uL 1.09-3.23 = 731-0) MONO x10^3 (test code 0.61 10*3/uL 0.36-1.02 = 742-7) EOS x10^3 (test code = 0.24 10*3/uL 0.06-0.53 711-2) BASO x10^3 (test code 0.03 10*3/uL 0.01-0.09 = 704-7) Lab Interpretation Abnormal (test code = 09765-8) [facility] GLUCOSE (AUTOMATED)2019-09-02 02:54:00 Test Item Value Reference Range Interpretation Comments POCT GLU (test code = 6610602782) 196 mg/dL 70-110 H Lab Interpretation (test code = Abnormal 26592-3) [facility] GLUCOSE (AUTOMATED)2019-09-01 22:50:00 Test Item Value Reference Range Interpretation Comments POCT GLU (test code = 2745124962) 224 mg/dL 70-110 H Lab Interpretation (test code = Abnormal 60943-6) [facility] WITH [id number] 17:18:00 Test Item Value Reference Range Interpretation Comments WBC (test code = See_Comment [Automated 6690-2) message] The sy stem which generated this result transmitted reference range : 4.20 - 10.70 10*3/?L. The reference range was not used to interpret this result as normal/abnormal . RBC (test code = See_Comment L [Automated 789-8) message] The sy stem which generated this result transmitted reference range : 4.26 - 5.52 10*6/?L. The reference range was not used to interpret this result as normal/abnormal . HGB (test code = 7.7 g/dL 12.2-16.4 L 718-7) HCT (test code = 26.3 % 38.4-49.3 L 4544-3) MCV (test code = 85.9 fL 81.7-95.6 787-2) MCH (test code = 25.2 pg 26.1-32.7 L 785-6) MCHC (test code = 29.3 g/dL 31.2-35 L 786-4) RDW-SD (test code = 87.0 fL 38.5-51.6 H 45660-7) RDW-CV (test code = 28.8 % 12.1-15.4 H 788-0) PLT (test code = See_Comment L [Automated 777-3) message] The sy stem which generated this result transmitted reference range : 150 - 328 10*3/ ?L. The reference r jesus was not used to interpret this result as normal/abnormal . MPV (test code = 10.1 fL 9.8-13 61046-7) NRBC/100 WBC (test See_Comment [Automat ed code = 0017458898) message] The system which generated this result transmitted reference range : 0.0 - 10.0 /100 WBCs. The refer ence range was not u sed to interpret th is result as normal/abnormal . NRBC x10^3 (test code <0.01 See_Comment [Auto mated = 5444354264) message] The s ystem which generated this result transmitted reference range : 10*3/?L. The reference range was not used to interpret this result as normal/abnormal . GRAN MAT (NEUT) % 74.9 % (test code = 770-8) IMM GRAN % (test code 0.50 % = 7403286090) LYMPH % (test code = 13.4 % 736-9) MONO % (test code = 8.0 % 5905-5) EOS % (test code = 3.0 % 713-8) BASO % (test code = 0.2 % 706-2) GRAN MAT x10^3(ANC) 4.96 10*3/uL 1.99-6.95 (test code = 3650592356) IMM GRAN x10^3 (test 0.03 10*3/uL 0-0.06 code = 9396320250) LYMPH x10^3 (test code 0.89 10*3/uL 1.09-3.23 L = 731-0) MONO x10^3 (test code 0.53 10*3/uL 0.36-1.02 = 742-7) EOS x10^3 (test code = 0.20 10*3/uL 0.06-0.53 711-2) BASO x10^3 (test code <0.03 0.01-0.09 = 704-7) Lab Interpretation Abnormal (test code = 22588-1) [facility] 17:03:00 Test Item Value Reference Range Interpretation Comments POCT GLU (test code = 1148096961) 161 mg/dL 70-110 H Lab Interpretation (test code = Abnormal 44570-0) [facility]MR [facility] WO [id number] 15:05:31 Second ray amputation changes with osteomyelitis of the second toe proximalphalanx and second metatarsal head. Additional signal derangement withinthe third and fourth metatarsal heads and base of thethird digit proximalphalanx may represent reactive bone marrow edema. However, cannot reliablyexclude early osteomyelitis given proximity to the second digit ulcer. No abscesses. Preliminary Report Dictated by Resident: Freddy Lambert I, Jason Nelson MD., have reviewed this study and agree with theabovereport.EXAM: MR FOOT RIGHT W WO CONTRAST HISTORY: 83 years-old Male osteomyelitis COMPARISON: Ra diographs from 08/30/2019 TECHNIQUE: 1.5T multiplanar multiweighted MR imaging of the foot was performed withand without contrast. 13 mL IV ProHance was administered. FINDINGS: Postsurgical changes of second ray amputation are seen at the level of theproximal phalanx base with subtle blurring of the amputation margins.Overlying skin ulceration is seen with subcutaneous T2 signal increase andenhancementsurrounding the amputation site and diffusely throughout theforefoot. Underlying abnormal increased T2/STIR signal with corresponding hypointenseT1 signal and enhancement are noted in the second toe proximal phalanx anddistal second plantar metatarsal head. There is similar milder signalderangement with enhancement at the level of the plantar medial thirdmetatarsal head and adjacent medial base of the third proximal phalanx andwithin the plantar fourth metatarsal head. The remaining bone marrow signa lintensity is unremarkable. Edematous changes of the plantar muscles of theforefoot are noted. No soft tissue abscesses are identified. ? [facility], Radiant Results Inft User - 09/01/2019 10:06 AM CDTEXAM: MR FOOT RIGHT W WO CONTRASTHISTORY: 83 years-old Male osteomyelitisCOMPARISON: Radiographs from 08/30/2019TECHNIQUE:1.5T multiplanar multiweighted MR imaging of the foot was performed withand without contrast. 13 mL IV ProHance was administered.FINDINGS:Postsurgical changes of second ray amputation are seen at the level of theproximal phalanx base with subtle blurring of the amputation margins.Overlyingskin ulceration is seen with subcutaneous T2 signal increase andenhancement surrounding the amputation site and diffusely throughout theforefoot. Underlying abnormal increased T2/STIR signal with corresponding hypointenseT1 signal and enhancement are noted in the second toe proximal phalanx anddistal second plantar metatarsal head. There is similar milder signalderangement with enhancement at the level of the plantar medial thirdmetatarsal head and adjacent medial base of the third proximal phalanx a ndwithin the plantar fourth metatarsal head. The remaining bone marrow signalintensity is unremarkable. Edematous changes of the plantar muscles of theforefoot are noted. No soft tissue abscesses are identified. IMPRESSIONSecond ray amputation changes with osteomyelitis of the second toe proximalphalanx and second metatarsal head. Additional signal derangement withinthe third and fourth metatarsal heads and base of the third digit proximalphalanx may represent reactive bone marrow edema. However, cannot reliablyexclude early osteomyelitis given proximity to the second digit ulcer.No abscesses.Preliminary Report Dictated by Resident: Jason Guillen MD., have reviewed this study and agree with the abovereport.[facility]MR [facility] W WO [id number] 14:55:36 No osteomyelitis in the hindfoot. Please refer to the separately dictated MRI foot report regardingfindingsin the forefoot. Preliminary Report Dictated by Resident: Freddy Lambert I, Jason Nelson MD., have reviewed this study and agree with the abovereport.EXAM: MR ANKLE RIGHT W WO CONTRAST HISTORY: 83 years-old Male osteomyelitis COMPARISON: Radiographs from 08/30/2019 TECHNIQUE: 1.5T multiplanarmultiweighted MR imaging of the right ankle was performedwith and without contrast. 13 mL IV ProHance was administered. FINDINGS: Mild increased subcortical fluid signal in the midfoot and calcaneuswithout T1 signal abnormality is compatible with reactive marrow changes.The background marrow signal inthe midfoot and hindfoot is otherwiseunremarkable. No acute fractures are seen The ankle mortise is c ongruent.Small subcentimeter bone infarct is seen at the level of the lateral talardome. Increased fluid signal within the plantar fascia is noted. Theligaments and tendons are intact. No ankle joint effusion is seen. No softtissue abscesses or collections are identified. No muscle edema or muscleatrophy is present. Increased T2/STIR subcutaneous soft tissue edema andinflammatory signal is partially visualized in the forefoot. Anterior lowerleg skin thickening/irregularity is seen with underlying subcutaneousedema. [facility], Radiant Results Inft User - 09/01/2019 9:56 AM CDTEXAM: MR ANKLE RIGHT W WO CONTRASTHISTORY: 83 years-old Male osteomyelitisCOMPARISON: Radiographs from 08/30/2019TECHNIQUE: 1.5T multiplanar multiweighted MR imaging of the right ankle was performedwith and without contrast. 13 mL IV ProHance was administered.FINDINGS:Mild increased subcortical fluid signal in the midfoot and calcaneuswithout T1 signal abnormality is compatible with reactive marrow changes.The background marrow signal in the midfoot and hindfoot is otherwiseunremarkable. No acute fractures are seen The ankle mortise is congruent.Small subcentimeter bone infarct is seen at the level of the lateral talardome. Increased fluid signal within the plantar fascia is noted. Theligaments and tendons are intact. No ankle joint effusion is seen. No softtissue abscesses or collections are identified. No muscle edema or musc leatrophy is present. Increased T2/STIR subcutaneous soft tissue edema andinflammatory signal is partially visualized in the forefoot. Anterior lowerleg skin thickening/irregularity is seen with underlying subcutaneousedema.IMPRESSIONNo osteomyelitis in the hindfoot. Please refer to the separately dictated MRI foot report regarding findingsin the forefoot.Preliminary Report Dictated by Resident: Jason Guillen MD., have reviewed this study and agree with the abovereport.[facility] METABOLIC PANEL (NA, K, CL, CO2, GLUCOSE, BUN, CREATININE, CA)2019-09-01 10:52:00 Test Item Value Reference Range Interpretation Comments NA (test code = 136 mmol/L 135-145 2308528009) K (test code = 4.3 mmol/L 3.5-5 1874543961) CL (test code = 108 mmol/L 98-108 3082448255) CO2 TOTAL (test code = 23 mmol/L 23-31 0056028349) AGAP (test code = 2-16 7300548987) BUN (test code = 28 mg/dL 7-23 H 6522836403) GLUCOSE (test code = 106 mg/dL 70-110 7602999523) CREATININE (test code = 1.21 mg/dL 0.6-1.25 1995838702) CALCIUM (test code = 7.3 mg/dL 8.6-10.6 L 7168854314) eGFR Calculation mL/min/1.73m2 (Non-) (test code = 9431092203) eGFR Calculation mL/min/1.73m2 () (test code = 4686701256) AKHIL (test code = AKHIL) Association of Glomerular Filtration Rate (GFR) and Staging of Kidney Disease* + --+ --+ ------+| GFR (mL/min/1.73 m2) ?| With Kidney Damage ?| ?Without Kidney Damage+ --------+ --------+ +| ?>90 ?| ?Stage one ?| ? Normal ?+ ---+ ---+ -------+| ?60-89 ?| ?Stage two ?| ? Decreased GFR ? + --+ --+ ------+| ?30-59 ?| ?Stage three ?| ? Stage three ? + --+ --+ ------+| ?15-29 ?| ?Stage four ? | ? Stage four ?+ ---+ ---+ -------+| ?<15 (or dialysis) ? ?| ?Stage five ? | ? Stage five ?+ ---+ ---+ -------+ *Each stage assumes the associated GFR level has been in effect for at least three months. ?Stages 1 to 5, with or without kidney disease, indicate chronic kidney disease. Notes: Determination of stages one and two (with eGFR >59mL/min/1.73 m2) requires estimation of kidney damage for at least three months as defined by structural or functional abnormalities of the kidney, manifested by either:Pathological abnormalities or Markers of kidney damage (including abnormalities in the composition of the blood or urine or abnormalities in imaging tests). Lab Interpretation Abnormal (test code = 22484-6) [facility]2020-[facility]10 10:52:00 Test Item Value Reference Range Interpretation Comments MAGNESIUM (test code = 0820215128) 2.1 mg/dL 1.7-2.4 Lab Interpretation (test code = Normal 26234-0) [facility]CB WITH [id number] 10:24:00 Test Item Value Reference Range Interpretation Comments WBC (test code = See_Comment [Automated 6690-2) message] The sy stem which generated this result transmitted reference range : 4.20 - 10.70 10*3/?L. The reference range was not used to interpret this result as normal/abnormal . RBC (test code = See_Comment L [Automated 789-8) message] The sy stem which generated this result transmitted reference range : 4.26 - 5.52 10*6/?L. The reference range was not used to interpret this result as normal/abnormal . HGB (test code = 7.2 g/dL 12.2-16.4 L 718-7) HCT (test code = 24.7 % 38.4-49.3 L 4544-3) MCV (test code = 85.5 fL 81.7-95.6 787-2) MCH (test code = 24.9 pg 26.1-32.7 L 785-6) MCHC (test code = 29.1 g/dL 31.2-35 L 786-4) RDW-SD (test code = 86.1 fL 38.5-51.6 H 65656-8) RDW-CV (test code = 28.4 % 12.1-15.4 H 788-0) PLT (test code = See_Comment L [Automated 777-3) message] The sy stem which generated this result transmitted reference range : 150 - 328 10*3/ ?L. The reference r jesus was not used to interpret this result as normal/abnormal . MPV (test code = 10.1 fL 9.8-13 34738-7) NRBC/100 WBC (test See_Comment [Automat ed code = 8170067072) message] The system which generated this result transmitted reference range : 0.0 - 10.0 /100 WBCs. The refer ence range was not u sed to interpret th is result as normal/abnormal . NRBC x10^3 (test code <0.01 See_Comment [Auto mated = 4416365577) message] The s ystem which generated this result transmitted reference range : 10*3/?L. The reference range was not used to interpret this result as normal/abnormal . GRAN MAT (NEUT) % 68.1 % (test code = 770-8) IMM GRAN % (test code 0.60 % = 1384992133) LYMPH % (test code = 14.4 % 736-9) MONO % (test code = 12.3 % 5905-5) EOS % (test code = 4.3 % 713-8) BASO % (test code = 0.3 % 706-2) GRAN MAT x10^3(ANC) 4.31 10*3/uL 1.99-6.95 (test code = 3042546837) IMM GRAN x10^3 (test 0.04 10*3/uL 0-0.06 code = 7467460726) LYMPH x10^3 (test code 0.91 10*3/uL 1.09-3.23 L = 731-0) MONO x10^3 (test code 0.78 10*3/uL 0.36-1.02 = 742-7) EOS x10^3 (test code = 0.27 10*3/uL 0.06-0.53 711-2) BASO x10^3 (test code <0.03 0.01-0.09 = 704-7) Lab Interpretation Abnormal (test code = 10326-3) [facility] GLUCOSE (AUTOMATED)2019-09-01 04:59:00 Test Item Value Reference Range Interpretation Comments POCT GLU (test code = 7906474042) 230 mg/dL 70-110 H Lab Interpretation (test code = Abnormal 87000-3) [facility] GLUCOSE (AUTOMATED)2019-09-01 02:51:00 Test Item Value Reference Range Interpretation Comments POCT GLU (test code = 4865615896) 307 mg/dL 70-110 H Lab Interpretation (test code = Abnormal 95207-8) [facility] GLUCOSE (AUTOMATED)2019-09-01 01:36:00 Test Item Value Reference Range Interpretation Comments POCT GLU (test code = 9283441550) 328 mg/dL 70-110 H Lab Interpretation (test code = Abnormal 04360-6) [facility]PROFILE / [id number] 22:32:00 Test Item Value Reference Range Interpretation Comments WBC (test code = 6690-2) See_Comment [A utomated message] The system [employer] generated this result transmit sapna reference range : 4.20 - 10.70 10*3/?L. The reference range was not used to interpret this result as normal/abnormal . RBC (test code = 789-8) See_Comment L [Au tomated message] The system [employer] generated this result transmit sapna reference range : 4.26 - 5.52 10* 6/?L. The reference r jesus was not used to interpret this result as normal/abnormal . HGB (test code = 718-7) 8.1 g/dL 12.2-16.4 L HCT (test code = 4544-3) 27.7 % 38.4-49.3 L MCH (test code = 785-6) 25.2 pg 26.1-32.7 L MCV (test code = 787-2) 86.3 fL 81.7-95.6 MCHC (test code = 786-4) 29.2 g/dL 31.2-35 L PLT (test code = 777-3) See_Comment L [Au tomated message] The system [employer] generated this result transmit sapna reference range : 150 - 328 10*3/?L. The reference range was not used to interpret this result as normal/abnormal . MPV (test code = 10.2 fL 9.8-13 31675-2) RDW-CV (test code = 29.0 % 12.1-15.4 H 788-0) RDW-SD (test code = 87.7 fL 38.5-51.6 H 43320-3) NRBC x10^3 (test code = <0.01 See_Comment [Au tomated message] 6701383428) The system [employer] generated this result transmit sapna reference range : 10*3/?L. The reference range was not used to interpret this result as normal/abnormal . NRBC/100 WBC (test code See_Comment [Au tomated message] = 8070889230) The system [employer] generated this result transmit sapna reference range : 0.0 - 10.0 /100 WBC s. The reference r jesus was not used to interpret this result as normal/abnormal . IPF % (test code = 2831986945) Lab Interpretation (test Abnormal code = 73060-9) [facility] GLUCOSE (AUTOMATED)2019-08-31 21:50:00 Test Item Value Reference Range Interpretation Comments POCT GLU (test code = 2383366934) 146 mg/dL 70-110 H Lab Interpretation (test code = Abnormal 86337-9) [facility] GLUCOSE (AUTOMATED)2019-08-31 17:24:00 Test Item Value Reference Range Interpretation Comments POCT GLU (test code = 3217266643) 99 mg/dL 70-110 Lab Interpretation (test code = Normal 67179-1) [facility] TexasType and Screen - ONCE [id number] 17:19:51 Test Item Value Reference Range Interpretation Comments ABO & RH (test code A POSITIVE Performe d at [facility] = 20) Laboratory Serv [facility] s [address]Oppl Free: [phone] A No. [id number] IAT (test code = Negative Performed a t [facility] 1185) Laboratory [facility] Blood [facility] [address] [facility] s [id number] Free: [phone] A No. [id number] [facility]BASI METABOLIC PANEL (NA, K, CL, CO2, GLUCOSE, BUN, CREATININE, CA)2019-08-31 16:48:00 Test Item Value Reference Range Interpretation Comments NA (test code = 138 mmol/L 135-145 4653520069) K (test code = 5.3 mmol/L 3.5-5 H 6331771466) CL (test code = 109 mmol/L 98-108 H 1294211841) CO2 TOTAL (test code = 24 mmol/L 23-31 3758318304) AGAP (test code = 2-16 3251776375) BUN (test code = 32 mg/dL 7-23 H 7127578989) GLUCOSE (test code = 99 mg/dL 70-110 9721757422) CREATININE (test code = 1.32 mg/dL 0.6-1.25 H 6371913868) CALCIUM (test code = 8.1 mg/dL 8.6-10.6 L 0471562496) eGFR Calculation mL/min/1.73m2 (Non-) (test code = 5591976832) eGFR Calculation mL/min/1.73m2 () (test code = 8753525959) AKHIL (test code = AKHIL) Association of Glomerular Filtration Rate (GFR) and Staging of Kidney Disease* + --+ --+ ------+| GFR (mL/min/1.73 m2) ?| With Kidney Damage ?| ?Without Kidney Damage+ --------+ --------+ +| ?>90 ?| ?Stage one ?| ? Normal ?+ ---+ ---+ -------+| ?60-89 ?| ?Stage two ?| ? Decreased GFR ? + --+ --+ ------+| ?30-59 ?| ?Stage three ?| ? Stage three ? + --+ --+ ------+| ?15-29 ?| ?Stage four ? | ? Stage four ?+ ---+ ---+ -------+| ?<15 (or dialysis) ? ?| ?Stage five ? | ? Stage five ?+ ---+ ---+ -------+ *Each stage assumes the associated GFR level has been in effect for at least three months. ?Stages 1 to 5, with or without kidney disease, indicate chronic kidney disease. Notes: Determination of stages one and two (with eGFR >59mL/min/1.73 m2) requires estimation of kidney damage for at least three months as defined by structural or functional abnormalities of the kidney, manifested by either:Pathological abnormalities or Markers of kidney damage (including abnormalities in the composition of the blood or urine or abnormalities in imaging tests). Lab Interpretation Abnormal (test code = 20369-9) [facility] TexasaPTT2020-06-09 16:30:00 Test Item Value Reference Range Interpretation Comments APTT Patient (test code = See_Comment [ Automated message] 3173-2) The system [employer] generated this result transmitted ref erence range: 26 - 36 Seconds. The re ference range was not u sed to interpret this result as normal/abnor mal. Lab Interpretation (test Normal code = 67498-9) [facility] TexasProthrombin Time / [id number] 16:30:00 Test Item Value Reference Range Interpretation Comments PROTIME PATIENT (test See_Comment H [Auto mated message] code = 5964-2) The system [employer] generated this result transmitted ref erence range: 10.1 - 1 2.6 Seconds. The reference range was not used to int erpret this result as normal/abnormal . INR (test code = 6301-6) Nor mal INR <1.1; Warfarin Therap eutic range 2.0 to 3. 0 or 2.5 to 3.5, dep ending upon the indica tions. Lab Interpretation (test Abnormal code = 60485-0) [facility]2019-08-31 15:03:00 Test Item Value Reference Range Interpretation Comments POCT GLU (test code = 1466869686) 86 mg/dL 70-110 Lab Interpretation (test code = Normal 23032-3) [facility] TexasC-REACTIVE [id number] 14:55:00 Test Item Value Reference Range Interpretation Comments CRP (test code = <0.1 See_Comment [Automated message] 8337015166) The system [employer] generated this result transmitted ref erence range: <0.8 mg/ dL. The reference range was not used to int erpret this result as normal/abnormal . Lab Interpretation (test Normal code = 56733-1) [facility] (NA, K, CL, CO2, GLUCOSE, BUN, CREATININE, CA)2019-08-31 11:40:00 Test Item Value Reference Range Interpretation Comments NA (test code = 140 mmol/L 135-145 2842634329) K (test code = 5.6 mmol/L 3.5-5 H 7981256020) CL (test code = 111 mmol/L 98-108 H 5310020764) CO2 TOTAL (test code = 24 mmol/L 23-31 0085390536) AGAP (test code = 2-16 6875194799) BUN (test code = 38 mg/dL 7-23 H 4326589297) GLUCOSE (test code = 71 mg/dL 70-110 6794830674) CREATININE (test code = 1.36 mg/dL 0.6-1.25 H 5144724940) CALCIUM (test code = 8.4 mg/dL 8.6-10.6 L 0355648497) eGFR Calculation mL/min/1.73m2 (Non-) (test code = 2663149279) eGFR Calculation mL/min/1.73m2 () (test code = 5281432395) AKHIL (test code = AKHIL) Association of Glomerular Filtration Rate (GFR) and Staging of Kidney Disease* + --+ --+ ------+| GFR (mL/min/1.73 m2) ?| With Kidney Damage ?| ?Without Kidney Damage+ --------+ --------+ +| ?>90 ?| ?Stage one ?| ? Normal ?+ ---+ ---+ -------+| ?60-89 ?| ?Stage two ?| ? Decreased GFR ? + --+ --+ ------+| ?30-59 ?| ?Stage three ?| ? Stage three ? + --+ --+ ------+| ?15-29 ?| ?Stage four ? | ? Stage four ?+ ---+ ---+ -------+| ?<15 (or dialysis) ? ?| ?Stage five ? | ? Stage five ?+ ---+ ---+ -------+ *Each stage assumes the associated GFR level has been in effect for at least three months. ?Stages 1 to 5, with or without kidney disease, indicate chronic kidney disease. Notes: Determination of stages one and two (with eGFR >59mL/min/1.73 m2) requires estimation of kidney damage for at least three months as defined by structural or functional abnormalities of the kidney, manifested by either:Pathological abnormalities or Markers of kidney damage (including abnormalities in the composition of the blood or urine or abnormalities in imaging tests). Lab Interpretation Abnormal (test code = 73902-4) [facility]MAG[facility]UM2020-06-09 11:40:00 Test Item Value Reference Range Interpretation Comments MAGNESIUM (test code = 5498411588) 2.7 mg/dL 1.7-2.4 H Lab Interpretation (test code = Abnormal 44135-3) [facility]CB WITH [id number] 11:14:00 Test Item Value Reference Range Interpretation Comments WBC (test code = See_Comment [Automated 6690-2) message] The sy stem which generated this result transmitted reference range : 4.20 - 10.70 10*3/?L. The reference range was not used to interpret this result as normal/abnormal . RBC (test code = See_Comment L [Automated 789-8) message] The sy stem which generated this result transmitted reference range : 4.26 - 5.52 10*6/?L. The reference range was not used to interpret this result as normal/abnormal . HGB (test code = 7.7 g/dL 12.2-16.4 L 718-7) HCT (test code = 26.2 % 38.4-49.3 L 4544-3) MCV (test code = 84.5 fL 81.7-95.6 787-2) MCH (test code = 24.8 pg 26.1-32.7 L 785-6) MCHC (test code = 29.4 g/dL 31.2-35 L 786-4) RDW-SD (test code = 85.8 fL 38.5-51.6 H 13106-9) RDW-CV (test code = 29.1 % 12.1-15.4 H 788-0) PLT (test code = See_Comment L [Automated 777-3) message] The sy stem which generated this result transmitted reference range : 150 - 328 10*3/ ?L. The reference r jesus was not used to interpret this result as normal/abnormal . MPV (test code = 10.1 fL 9.8-13 50407-8) NRBC/100 WBC (test See_Comment [Automat ed code = 5657099245) message] The system which generated this result transmitted reference range : 0.0 - 10.0 /100 WBCs. The refer ence range was not u sed to interpret th is result as normal/abnormal . NRBC x10^3 (test code <0.01 See_Comment [Auto mated = 9185334544) message] The s ystem which generated this result transmitted reference range : 10*3/?L. The reference range was not used to interpret this result as normal/abnormal . GRAN MAT (NEUT) % 77.1 % (test code = 770-8) IMM GRAN % (test code 0.40 % = 6986430055) LYMPH % (test code = 11.5 % 736-9) MONO % (test code = 8.6 % 5905-5) EOS % (test code = 2.3 % 713-8) BASO % (test code = 0.1 % 706-2) GRAN MAT x10^3(ANC) 5.45 10*3/uL 1.99-6.95 (test code = 9325868307) IMM GRAN x10^3 (test 0.03 10*3/uL 0-0.06 code = 3957858975) LYMPH x10^3 (test code 0.81 10*3/uL 1.09-3.23 L = 731-0) MONO x10^3 (test code 0.61 10*3/uL 0.36-1.02 = 742-7) EOS x10^3 (test code = 0.16 10*3/uL 0.06-0.53 711-2) BASO x10^3 (test code <0.03 0.01-0.09 = 704-7) Lab Interpretation Abnormal (test code = 90191-5) [facility] [id number] 10:12:13 No radiographic evidence of osteomyelitis. Preliminary Report Dictated by Resident: Orquidea Mcginnis I, Jason Nelson MD., have reviewed this study and agree with the abovereport.EXAM: XR FOOT <3 VW RIGHT HISTORY: 2nd toe infection COMPARISON: None. 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 No bone erosion identified. Vascularcalcifications are seen. Surgical bijan are seen. Soft tissue swellingand osteopenia are present. 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 No bone erosion identified. Vascularcalcifications are seen. Surgical bijan are seen. Soft tissue swellingand osteopenia are present.IMPRESSIONNo radiographic evidence of osteomyelitis.Preliminary Report Dictated by Resident: Orquidea Oro, Jason Nelson MD., have reviewed this study and agree with the abovereport.[facility]CREAT[facility], URINE [id number] 07:54:00 Test Item Value Reference Range Interpretation Comments CREAT U (test code = 3845302921) 57.2 mg/dL [facility] NITROGEN, URINE [id number] 07:54:00 Test Item Value Reference Range Interpretation Comments UREA N UR (test code = 2415246711) 852 mg/dL [facility] TexasURINALYSIS2020-06-09 07:28:00 Test Item Value Reference Range Interpretation Comments APPEARANCE (test code = Hazy Clear A 6848547660) COLOR (test code = Yellow Yellow 7424494664) PH (test code = 4.8-8.0 6527258363) SP GRAVITY (test code = 1.003-1.030 1180164002) GLU U QUAL (test code = Normal Normal 6233372819) BLOOD (test code = Negative Negative INTERFERE NCE FROM 0587161225) ASCORBIC ACID M AY CAUSE FALSE NEG ATIVE RESULT KETONES (test code = Negative Negative 0196384233) PROTEIN (test code = Negative Negative 2887-8) UROBILIN (test code = Normal Normal 8483162494) BILIRUBIN (test code = Negative Negative 3350300382) NITRITE (test code = Negative Negative 7180969144) LEUK DEBI (test code = Negative Negative 3846947628) RBC/HPF (test code = See_Comment [Autom ated message] 2171340406) The system 1001 [employer] generated this result transmitted ref erence range: 0 - 3 HP F. The reference range was not used to int erpret this result as normal/abnormal . WBC/HPF (test code = See_Comment [Autom ated message] 4692750819) The system [employer] generated this result transmitted ref erence range: 0 - 5 HP F. The reference range was not used to int erpret this result as normal/abnormal . BACTERIA (test code = Negative Negative 6589775320) SQ EPITH (test code = <1 See_Comment [Auto mated message] 8530544397) The system 1001 [employer] generated this result transmitted ref erence range: <=2 HPF. The reference range was not used to int erpret this result as normal/abnormal . Lab Interpretation (test Abnormal code = 39963-5) [facility]OVID-[facility] (ID NOW RAPID TESTING)2019-08-31 02:10:00 Test Item Value Reference Range Interpretation Comments SARS-CoV-2 Rapid ID NOW Not Detected Not Detected (test code = 94055-1) AKHIL (test code = AKHIL) ID NOW COVID-19 Assay is an isothermal nucleic acid amplification test intended for the qualitative detection of nucleic acid from SARS-CoV-2 viral RNA in nasopharyngeal (WEB MARKETING ANALYST) specimens. It is used under Emergency Use Authorization (EUA) by FDA. The limit of detection (LOD) of the assay is 125 Genome Equivalents/mL. A positive result is indicative of the presence of SARS-CoV-2 RNA. ?Clinical correlation with patient history and other diagnostic information is necessary to determine patient infection status. A negative (Not Detected) result does not preclude SARS-CoV-2 infection. In patients with clinical symptoms and other tests that are consistent with SARS-CoV-2 infection, negative results should be treated as presumptive negative and a new specimen should be tested with alternative PCR molecular test. Invalid: Please collect a new specimen for repeat patient testing if clinically indicated. Lab Interpretation Normal (test code = 57230-1) [facility] TexasSEDIMENTATION [id number] 01:59:00 Test Item Value Reference Range Interpretation Comments ESR (test code = See_Comment [Automated 2427648954) message] The system which generated this result transmit sapna reference range : 0 - 10 mm/HR. The reference range was not used to interpret this result as normal/abnormal . AKHIL (test code = AKHIL) ESR setup by EROS THORPE Lab Interpretation Normal (test code = 85577-2) [facility] TexasCOM. METABOLIC PANEL (77805)2019-08-31 01:34:00 Test Item Value Reference Range Interpretation Comments NA (test code = 137 mmol/L 135-145 8968068610) K (test code = 5.6 mmol/L 3.5-5 H 3654537489) CL (test code = 105 mmol/L 98-108 6006673836) CO2 TOTAL (test code = 24 mmol/L 23-31 9285190834) AGAP (test code = 2-16 3257211427) BUN (test code = 52 mg/dL 7-23 H 0317340198) GLUCOSE (test code = 208 mg/dL 70-110 H 7831641251) CREATININE (test code = 1.69 mg/dL 0.6-1.25 H 9635604426) TOTAL BILI (test code = 0.1 mg/dL 0.1-1.7 4505316906) CALCIUM (test code = 8.9 mg/dL 8.6-10.6 6248814173) T PROTEIN (test code = 6.9 g/dL 6.3-8.2 6494828746) ALBUMIN (test code = 4.1 g/dL 3.5-5 9210129074) ALK PHOS (test code = 57 U/L 34-122 5297798175) ALTv (test code = 37 U/L 5-50 1742-6) AST(SGOT) (test code = 24 U/L 13-40 4792177410) eGFR Calculation mL/min/1.73m2 (Non-) (test code = 0980041197) eGFR Calculation mL/min/1.73m2 () (test code = 2679965654) AKHIL (test code = AKHIL) Association of Glomerular Filtration Rate (GFR) and Staging of Kidney Disease* + --+ --+ ------+| GFR (mL/min/1.73 m2) ?| With Kidney Damage ?| ?Without Kidney Damage+ --------+ --------+ +| ?>90 ?| ?Stage one ?| ? Normal ?+ ---+ ---+ -------+| ?60-89 ?| ?Stage two ?| ? Decreased GFR ? + --+ --+ ------+| ?30-59 ?| ?Stage three ?| ? Stage three ? + --+ --+ ------+| ?15-29 ?| ?Stage four ? | ? Stage four ?+ ---+ ---+ -------+| ?<15 (or dialysis) ? ?| ?Stage five ? | ? Stage five ?+ ---+ ---+ -------+ *Each stage assumes the associated GFR level has been in effect for at least three months. ?Stages 1 to 5, with or without kidney disease, indicate chronic kidney disease. Notes: Determination of stages one and two (with eGFR >59mL/min/1.73 m2) requires estimation of kidney damage for at least three months as defined by structural or functional abnormalities of the kidney, manifested by either:Pathological abnormalities or Markers of kidney damage (including abnormalities in the composition of the blood or urine or abnormalities in imaging tests). Lab Interpretation Abnormal (test code = 43237-1) [facility] WITH [id number] 01:21:00 Test Item Value Reference Range Interpretation Comments WBC (test code = See_Comment [Automated 6690-2) message] The sy stem which generated this result transmitted reference range : 4.20 - 10.70 10*3/?L. The reference range was not used to interpret this result as normal/abnormal . RBC (test code = See_Comment L [Automated 789-8) message] The sy stem which generated this result transmitted reference range : 4.26 - 5.52 10*6/?L. The reference range was not used to interpret this result as normal/abnormal . HGB (test code = 8.4 g/dL 12.2-16.4 L 718-7) HCT (test code = 29.0 % 38.4-49.3 L 4544-3) MCV (test code = 84.8 fL 81.7-95.6 787-2) MCH (test code = 24.6 pg 26.1-32.7 L 785-6) MCHC (test code = 29.0 g/dL 31.2-35 L 786-4) RDW-SD (test code = 86.3 fL 38.5-51.6 H 22297-8) RDW-CV (test code = 29.2 % 12.1-15.4 H 788-0) PLT (test code = See_Comment [Automated 777-3) message] The sy stem which generated this result transmitted reference range : 150 - 328 10*3/ ?L. The reference r jesus was not used to interpret this result as normal/abnormal . MPV (test code = 10.1 fL 9.8-13 93359-6) NRBC/100 WBC (test See_Comment [Automat ed code = 6968737587) message] The system which generated this result transmitted reference range : 0.0 - 10.0 /100 WBCs. The refer ence range was not u sed to interpret th is result as normal/abnormal . NRBC x10^3 (test code <0.01 See_Comment [Auto mated = 2918792551) message] The s ystem which generated this result transmitted reference range : 10*3/?L. The reference range was not used to interpret this result as normal/abnormal . GRAN MAT (NEUT) % 71.6 % (test code = 770-8) IMM GRAN % (test code 0.60 % = 2233887807) LYMPH % (test code = 17.6 % 736-9) MONO % (test code = 7.8 % 5905-5) EOS % (test code = 1.8 % 713-8) BASO % (test code = 0.6 % 706-2) GRAN MAT x10^3(ANC) 5.13 10*3/uL 1.99-6.95 (test code = 2493975867) IMM GRAN x10^3 (test 0.04 10*3/uL 0-0.06 code = 6975965255) LYMPH x10^3 (test code 1.26 10*3/uL 1.09-3.23 = 731-0) MONO x10^3 (test code 0.56 10*3/uL 0.36-1.02 = 742-7) EOS x10^3 (test code = 0.13 10*3/uL 0.06-0.53 711-2) BASO x10^3 (test code 0.04 10*3/uL 0.01-0.09 = 704-7) Lab Interpretation Abnormal (test code = 64980-9) [facility] TexasLactic Acid Whole [id number] 01:19:00 Test Item Value Reference Range Interpretation Comments LACTIC ACID (test code = 1.51 mmol/L 0.5-2.2 1718374989) [facility] TexasVancomycin Random [id number] 21:36:00 Test Item Value Reference Range Interpretation Comments VANCO RANDOM (test code = 18.5 ug/mL 9052803691) [facility] GLUCOSE (AUTOMATED)2019-08-16 17:11:00 Test Item Value Reference Range Interpretation Comments POCT GLU (test code = 1305504032) 133 mg/dL 70-110 H Lab Interpretation (test code = Abnormal 48533-1) [facility] GLUCOSE (AUTOMATED)2019-08-16 13:33:00 Test Item Value Reference Range Interpretation Comments POCT GLU (test code = 1617442588) 129 mg/dL 70-110 H Lab Interpretation (test code = Abnormal 34900-4) [facility] TexasBAC METABOLIC PANEL (NA, K, CL, CO2, GLUCOSE, BUN, CREATININE, CA)2019-08-16 09:15:00 Test Item Value Reference Range Interpretation Comments NA (test code = 137 mmol/L 135-145 3156359699) K (test code = 4.2 mmol/L 3.5-5 2589364854) CL (test code = 103 mmol/L 98-108 4624590183) CO2 TOTAL (test code = 27 mmol/L 23-31 4883976996) AGAP (test code = 2-16 5684154929) BUN (test code = 25 mg/dL 7-23 H 0599400294) GLUCOSE (test code = 95 mg/dL 70-110 0631717776) CREATININE (test code = 1.24 mg/dL 0.6-1.25 5619916582) CALCIUM (test code = 8.6 mg/dL 8.6-10.6 8534414942) eGFR Calculation mL/min/1.73m2 (Non-) (test code = 3253566086) eGFR Calculation mL/min/1.73m2 () (test code = 9304672955) AKHIL (test code = AKHIL) Association of Glomerular Filtration Rate (GFR) and Staging of Kidney Disease* + --+ --+ ------+| GFR (mL/min/1.73 m2) ?| With Kidney Damage ?| ?Without Kidney Damage+ --------+ --------+ +| ?>90 ?| ?Stage one ?| ? Normal ?+ ---+ ---+ -------+| ?60-89 ?| ?Stage two ?| ? Decreased GFR ? + --+ --+ ------+| ?30-59 ?| ?Stage three ?| ? Stage three ? + --+ --+ ------+| ?15-29 ?| ?Stage four ? | ? Stage four ?+ ---+ ---+ -------+| ?<15 (or dialysis) ? ?| ?Stage five ? | ? Stage five ?+ ---+ ---+ -------+ *Each stage assumes the associated GFR level has been in effect for at least three months. ?Stages 1 to 5, with or without kidney disease, indicate chronic kidney disease. Notes: Determination of stages one and two (with eGFR >59mL/min/1.73 m2) requires estimation of kidney damage for at least three months as defined by structural or functional abnormalities of the kidney, manifested by either:Pathological abnormalities or Markers of kidney damage (including abnormalities in the composition of the blood or urine or abnormalities in imaging tests). Lab Interpretation Abnormal (test code = 05379-2) [facility]2020-05-25 09:15:00 Test Item Value Reference Range Interpretation Comments MAGNESIUM (test code = 0181241497) 2.3 mg/dL 1.7-2.4 Lab Interpretation (test code = Normal 84746-4) [facility]PHOSPHORUS2020-05-25 09:15:00 Test Item Value Reference Range Interpretation Comments PHOSPHORUS (test code = 7905586371) 4.8 mg/dL 2.5-5 Lab Interpretation (test code = Normal 98580-4) [facility]CB WITH [id number] 08:53:00 Test Item Value Reference Range Interpretation Comments WBC (test code = See_Comment [Automated 8590-2) message] The sy stem which generated this result transmitted reference range : 4.20 - 10.70 10*3/?L. The reference range was not used to interpret this result as normal/abnormal . RBC (test code = See_Comment L [Automated 789-8) message] The sy stem which generated this result transmitted reference range : 4.26 - 5.52 10*6/?L. The reference range was not used to interpret this result as normal/abnormal . HGB (test code = 7.9 g/dL 12.2-16.4 L 718-7) HCT (test code = 27.6 % 38.4-49.3 L 4544-3) MCV (test code = 74.8 fL 81.7-95.6 L 787-2) MCH (test code = 21.4 pg 26.1-32.7 L 785-6) MCHC (test code = 28.6 g/dL 31.2-35 L 786-4) RDW-SD (test code = 60.2 fL 38.5-51.6 H 66628-2) RDW-CV (test code = 22.4 % 12.1-15.4 H 788-0) PLT (test code = See_Comment [Automated 777-3) message] The sy stem which generated this result transmitted reference range : 150 - 328 10*3/ ?L. The reference r jesus was not used to interpret this result as normal/abnormal . MPV (test code = 9.2 fL 9.8-13 L 71381-6) NRBC/100 WBC (test See_Comment [Automat ed code = 9284314472) message] The system which generated this result transmitted reference range : 0.0 - 10.0 /100 WBCs. The refer ence range was not u sed to interpret th is result as normal/abnormal . NRBC x10^3 (test code <0.01 See_Comment [Auto mated = 0060524160) message] The s ystem which generated this result transmitted reference range : 10*3/?L. The reference range was not used to interpret this result as normal/abnormal . GRAN MAT (NEUT) % 62.4 % (test code = 770-8) IMM GRAN % (test code 0.30 % = 8046027919) LYMPH % (test code = 22.9 % 736-9) MONO % (test code = 10.4 % 5905-5) EOS % (test code = 3.5 % 713-8) BASO % (test code = 0.5 % 706-2) GRAN MAT x10^3(ANC) 4.79 10*3/uL 1.99-6.95 (test code = 9457808308) IMM GRAN x10^3 (test <0.03 0-0.06 code = 5736557794) LYMPH x10^3 (test code 1.76 10*3/uL 1.09-3.23 = 731-0) MONO x10^3 (test code 0.80 10*3/uL 0.36-1.02 = 742-7) EOS x10^3 (test code = 0.27 10*3/uL 0.06-0.53 711-2) BASO x10^3 (test code 0.04 10*3/uL 0.01-0.09 = 704-7) Lab Interpretation Abnormal (test code = 35750-5) [facility] GLUCOSE (AUTOMATED)2019-08-16 02:54:00 Test Item Value Reference Range Interpretation Comments POCT GLU (test code = 5716737609) 177 mg/dL 70-110 H Lab Interpretation (test code = Abnormal 94727-2) [facility] GLUCOSE (AUTOMATED)2019-08-15 16:55:00 Test Item Value Reference Range Interpretation Comments POCT GLU (test code = 1421641518) 156 mg/dL 70-110 H Lab Interpretation (test code = Abnormal 72744-7) [facility] GLUCOSE (AUTOMATED)2019-08-15 13:31:00 Test Item Value Reference Range Interpretation Comments POCT GLU (test code = 5668629247) 112 mg/dL 70-110 H Lab Interpretation (test code = Abnormal 40041-8) [facility] Texas[facility]comycin Trough Level - Draw within 30 minutes prior to 4TH dose.2019-08-15 11:25:00 Test Item Value Reference Range Interpretation Comments VANCO TROUGH (test code 13.2 ug/mL 10-20 = 3333726009) AKHIL (test code = AKHIL) Toxic Range: ?>20 ug/mL 15-20 ug/mL is recommended for severe infection or when Vancomycin BHAVANA is greater than or equal to 2. Lab Interpretation (test Normal code = 02791-7) [facility] (NA, K, CL, CO2, GLUCOSE, BUN, CREATININE, CA)2019-08-15 10:21:00 Test Item Value Reference Range Interpretation Comments NA (test code = 137 mmol/L 135-145 6959467033) K (test code = 4.5 mmol/L 3.5-5 9641879373) CL (test code = 102 mmol/L 98-108 8865789873) CO2 TOTAL (test code = 28 mmol/L 23-31 3473424088) AGAP (test code = 2-16 5597366377) BUN (test code = 25 mg/dL 7-23 H 2182612829) GLUCOSE (test code = 112 mg/dL 70-110 H 6505198321) CREATININE (test code = 1.20 mg/dL 0.6-1.25 9846859012) CALCIUM (test code = 8.4 mg/dL 8.6-10.6 L 0449594138) eGFR Calculation mL/min/1.73m2 (Non-) (test code = 4555231958) eGFR Calculation mL/min/1.73m2 () (test code = 3027876831) AKHIL (test code = AKHIL) Association of Glomerular Filtration Rate (GFR) and Staging of Kidney Disease* + --+ --+ ------+| GFR (mL/min/1.73 m2) ?| With Kidney Damage ?| ?Without Kidney Damage+ --------+ --------+ +| ?>90 ?| ?Stage one ?| ? Normal ?+ ---+ ---+ -------+| ?60-89 ?| ?Stage two ?| ? Decreased GFR ? + --+ --+ ------+| ?30-59 ?| ?Stage three ?| ? Stage three ? + --+ --+ ------+| ?15-29 ?| ?Stage four ? | ? Stage four ?+ ---+ ---+ -------+| ?<15 (or dialysis) ? ?| ?Stage five ? | ? Stage five ?+ ---+ ---+ -------+ *Each stage assumes the associated GFR level has been in effect for at least three months. ?Stages 1 to 5, with or without kidney disease, indicate chronic kidney disease. Notes: Determination of stages one and two (with eGFR >59mL/min/1.73 m2) requires estimation of kidney damage for at least three months as defined by structural or functional abnormalities of the kidney, manifested by either:Pathological abnormalities or Markers of kidney damage (including abnormalities in the composition of the blood or urine or abnormalities in imaging tests). Lab Interpretation Abnormal (test code = 16039-2) [facility]2020-[facility]-24 10:21:00 Test Item Value Reference Range Interpretation Comments MAGNESIUM (test code = 2936099363) 2.3 mg/dL 1.7-2.4 Lab Interpretation (test code = Normal 41003-2) [facility]2020-[facility]-24 10:21:00 Test Item Value Reference Range Interpretation Comments PHOSPHORUS (test code = 6003980331) 4.5 mg/dL 2.5-5 Lab Interpretation (test code = Normal 64580-5) [facility] WITH [id number] 10:05:00 Test Item Value Reference Range Interpretation Comments WBC (test code = See_Comment [Automated 6690-2) message] The sy stem which generated this result transmitted reference range : 4.20 - 10.70 10*3/?L. The reference range was not used to interpret this result as normal/abnormal . RBC (test code = See_Comment L [Automated 789-8) message] The sy stem which generated this result transmitted reference range : 4.26 - 5.52 10*6/?L. The reference range was not used to interpret this result as normal/abnormal . HGB (test code = 8.2 g/dL 12.2-16.4 L 718-7) HCT (test code = 28.1 % 38.4-49.3 L 4544-3) MCV (test code = 74.9 fL 81.7-95.6 L 787-2) MCH (test code = 21.9 pg 26.1-32.7 L 785-6) MCHC (test code = 29.2 g/dL 31.2-35 L 786-4) RDW-SD (test code = 60.7 fL 38.5-51.6 H 17475-7) RDW-CV (test code = 22.5 % 12.1-15.4 H 788-0) PLT (test code = See_Comment [Automated 777-3) message] The sy stem which generated this result transmitted reference range : 150 - 328 10*3/ ?L. The reference r jesus was not used to interpret this result as normal/abnormal . MPV (test code = 10.0 fL 9.8-13 71884-7) NRBC/100 WBC (test See_Comment [Automat ed code = 4109441734) message] The system which generated this result transmitted reference range : 0.0 - 10.0 /100 WBCs. The refer ence range was not u sed to interpret th is result as normal/abnormal . NRBC x10^3 (test code <0.01 See_Comment [Auto mated = 9340624411) message] The s ystem which generated this result transmitted reference range : 10*3/?L. The reference range was not used to interpret this result as normal/abnormal . GRAN MAT (NEUT) % 63.9 % (test code = 770-8) IMM GRAN % (test code 0.50 % = 8802475122) LYMPH % (test code = 22.5 % 736-9) MONO % (test code = 9.7 % 5905-5) EOS % (test code = 2.9 % 713-8) BASO % (test code = 0.5 % 706-2) GRAN MAT x10^3(ANC) 4.65 10*3/uL 1.99-6.95 (test code = 6119019167) IMM GRAN x10^3 (test 0.04 10*3/uL 0-0.06 code = 5791210231) LYMPH x10^3 (test code 1.64 10*3/uL 1.09-3.23 = 731-0) MONO x10^3 (test code 0.71 10*3/uL 0.36-1.02 = 742-7) EOS x10^3 (test code = 0.21 10*3/uL 0.06-0.53 711-2) BASO x10^3 (test code 0.04 10*3/uL 0.01-0.09 = 704-7) Lab Interpretation Abnormal (test code = 97544-8) [facility] GLUCOSE (AUTOMATED)2019-08-15 05:59:00 Test Item Value Reference Range Interpretation Comments POCT GLU (test code = 8280469500) 158 mg/dL 70-110 H Lab Interpretation (test code = Abnormal 50277-9) [facility] GLUCOSE (AUTOMATED)2019-08-15 02:43:00 Test Item Value Reference Range Interpretation Comments POCT GLU (test code = 9128995093) 227 mg/dL 70-110 H Lab Interpretation (test code = Abnormal 06485-6) [facility] GLUCOSE (AUTOMATED)2019-08-14 20:21:00 Test Item Value Reference Range Interpretation Comments POCT GLU (test code = 5189470572) 255 mg/dL 70-110 H Lab Interpretation (test code = Abnormal 19210-4) [facility] GLUCOSE (AUTOMATED)2019-08-14 14:46:00 Test Item Value Reference Range Interpretation Comments POCT GLU (test code = 9885369491) 86 mg/dL 70-110 Lab Interpretation (test code = Normal 80191-7) [facility]com[facility] Random [id number] 11:13:00 Test Item Value Reference Range Interpretation Comments VANCO RANDOM (test code = 6.1 ug/mL 2945839468) [facility] (NA, K, CL, CO2, GLUCOSE, BUN, CREATININE, CA)2019-08-14 11:08:00 Test Item Value Reference Range Interpretation Comments NA (test code = 138 mmol/L 135-145 1352845239) K (test code = 5.0 mmol/L 3.5-5 6356788526) CL (test code = 103 mmol/L 98-108 6880271903) CO2 TOTAL (test code = 28 mmol/L 23-31 1108706576) AGAP (test code = 2-16 5423709791) BUN (test code = 23 mg/dL 7-23 5640726988) GLUCOSE (test code = 99 mg/dL 70-110 4741025782) CREATININE (test code 1.03 mg/dL 0.6-1.25 = 8718016042) CALCIUM (test code = 8.8 mg/dL 8.6-10.6 6186652181) eGFR Calculation mL/min/1.73m2 (Non-) (test code = 3507335788) eGFR Calculation mL/min/1.73m2 () (test code = 4503044933) AKHIL (test code = AKHIL) Association of Glomerular Filtration Rate (GFR) and Staging of Kidney Disease* + -+ + ---+| GFR (mL/min/1.73 m2) ?| With Kidney Damage ?| ?Without Kidney Damage+ -------+ ------+ ---------+| ?>90 ?| ?Stage one ?| ? Normal ?+ --+ -+ ----+| ?60-89 ?| ?Stage two ?| ? Decreased GFR ? + -+ + ---+| ?30-59 ?| ?Stage three ?| ? Stage three ? + -+ + ---+| ?15-29 ?| ?Stage four ? | ? Stage four ?+ --+ -+ ----+| ?<15 (or dialysis) ? ?| ?Stage five ? | ? Stage five ?+ --+ -+ ----+ *Each stage assumes the associated GFR level has been in effect for at least three months. ?Stages 1 to 5, with or without kidney disease, indicate chronic kidney disease. Notes: Determination of stages one and two (with eGFR >59mL/min/1.73 m2) requires estimation of kidney damage for at least three months as defined by structural or functional abnormalities of the kidney, manifested by either:Pathological abnormalities or Markers of kidney damage (including abnormalities in the composition of the blood or urine or abnormalities in imaging tests). [facility] 11:08:00 Test Item Value Reference Range Interpretation Comments MAGNESIUM (test code = 1491593201) 2.5 mg/dL 1.7-2.4 H Lab Interpretation (test code = Abnormal 00844-6) [facility]2020[facility] 11[facility]08:00 Test Item Value Reference Range Interpretation Comments PHOSPHORUS (test code = 9516674368) 4.5 mg/dL 2.5-5 Lab Interpretation (test code = Normal 81381-6) [facility] WITH [id number] 10:09:00 Test Item Value Reference Range Interpretation Comments WBC (test code = See_Comment [Automated 6690-2) message] The sy stem which generated this result transmitted reference range : 4.20 - 10.70 10*3/?L. The reference range was not used to interpret this result as normal/abnormal . RBC (test code = See_Comment L [Automated 789-8) message] The sy stem which generated this result transmitted reference range : 4.26 - 5.52 10*6/?L. The reference range was not used to interpret this result as normal/abnormal . HGB (test code = 8.3 g/dL 12.2-16.4 L 718-7) HCT (test code = 29.3 % 38.4-49.3 L 4544-3) MCV (test code = 75.5 fL 81.7-95.6 L 787-2) MCH (test code = 21.4 pg 26.1-32.7 L 785-6) MCHC (test code = 28.3 g/dL 31.2-35 L 786-4) RDW-SD (test code = 59.9 fL 38.5-51.6 H 56617-2) RDW-CV (test code = 22.5 % 12.1-15.4 H 788-0) PLT (test code = See_Comment [Automated 777-3) message] The sy stem which generated this result transmitted reference range : 150 - 328 10*3/ ?L. The reference r jesus was not used to interpret this result as normal/abnormal . MPV (test code = 9.7 fL 9.8-13 L 17625-7) NRBC/100 WBC (test See_Comment [Automat ed code = 8191347062) message] The system which generated this result transmitted reference range : 0.0 - 10.0 /100 WBCs. The refer ence range was not u sed to interpret th is result as normal/abnormal . NRBC x10^3 (test code <0.01 See_Comment [Auto mated = 1336674520) message] The s ystem which generated this result transmitted reference range : 10*3/?L. The reference range was not used to interpret this result as normal/abnormal . GRAN MAT (NEUT) % 58.5 % (test code = 770-8) IMM GRAN % (test code 0.50 % = 5329201301) LYMPH % (test code = 28.1 % 736-9) MONO % (test code = 10.0 % 5905-5) EOS % (test code = 2.4 % 713-8) BASO % (test code = 0.5 % 706-2) GRAN MAT x10^3(ANC) 4.63 10*3/uL 1.99-6.95 (test code = 3110998771) IMM GRAN x10^3 (test 0.04 10*3/uL 0-0.06 code = 1055517085) LYMPH x10^3 (test code 2.22 10*3/uL 1.09-3.23 = 731-0) MONO x10^3 (test code 0.79 10*3/uL 0.36-1.02 = 742-7) EOS x10^3 (test code = 0.19 10*3/uL 0.06-0.53 711-2) BASO x10^3 (test code 0.04 10*3/uL 0.01-0.09 = 704-7) Lab Interpretation Abnormal (test code = 84663-4) [facility]2019-08-14 04:29:00 Test Item Value Reference Range Interpretation Comments POCT GLU (test code = 4843332795) 107 mg/dL 70-110 Lab Interpretation (test code = Normal 82535-0) [facility] (Total Cholesterol, Triglycerides, HDL) - [id number] 01:59:00 Test Item Value Reference Range Interpretation Comments CHOL (test code = 88 mg/dL 120-200 L 7633434928) HDL (test code = 41 mg/dL >40 0684368149) HDLC RATIO (test code = See_Comment [Au tomated message] 8011984523) The system 1001 Men[employer] generated this result transmitted ref erence range: <=5.0. T he reference range was not used to int erpret this result as normal/abnormal . TRIG (test code = 74 mg/dL 30-170 6269231035) LDL CHOL (test code = 32 mg/dL See_Comment [Auto mated message] 93365-7) The system 1001 [employer] generated this result transmitted ref erence range: <=160. T he reference range was not used to int erpret this result as normal/abnormal . VLDL (test code = 15 mg/dL 5-60 1782135422) Lab Interpretation (test Abnormal code = 84237-0) [facility] 1 [id number] 01:45:52 No acute intrathoracic abnormality.PROCEDURE: XR CHEST 1 VW CLINICAL INDICATION: Pre- procedural COMPARISON: 06/21/2010 FINDINGS: The lungs are clear. No pleural effusion or pneumothorax is seen. The cardiomediastinal silhouette is normal. A hiatal hernia suspected.No acute bony abnormality. Status post CABG. [facility], Radiant Results Inft User - 08/13/2019 8:46 PM CDTPROCEDURE: XR CHEST 1 VWCLINICAL INDICATION: Pre-procedural COMPARISON: 06/21/2010FINDINGS:The lungs are clear. No pleural effusion or pneumothorax is seen. The cardiomediastinal silhouette is normal. A hiatal hernia suspected.No acute bonyabnormality. Status post CABG.IMPRESSIONNo acute intrathoracic abnormality.[facility] TexasGlycosylated Hemoglobin (A1C)2019-08-14 00:20:00 Test Item Value Reference Range Interpretation Comments HGB A1C (test code = 4548-4) 6.0 % 4-6 Lab Interpretation (test code = Normal 63162-8) [facility]2019-08-14 00:08:00 Test Item Value Reference Range Interpretation Comments POCT GLU (test code = 7666679303) 107 mg/dL 70-110 Lab Interpretation (test code = Normal 13736-7) [facility] TexasCOMP. METABOLIC PANEL (95366)2019-08-13 21:51:00 Test Item Value Reference Range Interpretation Comments NA (test code = 137 mmol/L 135-145 8532670094) K (test code = 5.1 mmol/L 3.5-5 H 7892050691) CL (test code = 105 mmol/L 98-108 8231188716) CO2 TOTAL (test code = 26 mmol/L 23-31 6337157427) AGAP (test code = 2-16 4581798079) BUN (test code = 27 mg/dL 7-23 H 7059141938) GLUCOSE (test code = 69 mg/dL 70-110 L 6430313475) CREATININE (test code = 1.07 mg/dL 0.6-1.25 0595291060) TOTAL BILI (test code = 0.2 mg/dL 0.1-1.1 7741406001) CALCIUM (test code = 8.3 mg/dL 8.6-10.6 L 0085270399) T PROTEIN (test code = 6.3 g/dL 6.3-8.2 6310854193) ALBUMIN (test code = 3.4 g/dL 3.5-5 L 1793845758) ALK PHOS (test code = 60 U/L 34-122 5728777258) ALTv (test code = 44 U/L 5-50 1742-6) AST(SGOT) (test code = 39 U/L 13-40 8885355152) eGFR Calculation mL/min/1.73m2 (Non-) (test code = 3403080362) eGFR Calculation mL/min/1.73m2 () (test code = 1871076185) AKHIL (test code = AKHIL) Association of Glomerular Filtration Rate (GFR) and Staging of Kidney Disease* + --+ --+ ------+| GFR (mL/min/1.73 m2) ?| With Kidney Damage ?| ?Without Kidney Damage+ --------+ --------+ +| ?>90 ?| ?Stage one ?| ? Normal ?+ ---+ ---+ -------+| ?60-89 ?| ?Stage two ?| ? Decreased GFR ? + --+ --+ ------+| ?30-59 ?| ?Stage three ?| ? Stage three ? + --+ --+ ------+| ?15-29 ?| ?Stage four ? | ? Stage four ?+ ---+ ---+ -------+| ?<15 (or dialysis) ? ?| ?Stage five ? | ? Stage five ?+ ---+ ---+ -------+ *Each stage assumes the associated GFR level has been in effect for at least three months. ?Stages 1 to 5, with or without kidney disease, indicate chronic kidney disease. Notes: Determination of stages one and two (with eGFR >59mL/min/1.73 m2) requires estimation of kidney damage for at least three months as defined by structural or functional abnormalities of the kidney, manifested by either:Pathological abnormalities or Markers of kidney damage (including abnormalities in the composition of the blood or urine or abnormalities in imaging tests). Lab Interpretation Abnormal (test code = 29506-2) [facility] WITH [id number] 21:46:00 Test Item Value Reference Range Interpretation Comments WBC (test code = See_Comment [Automated 6690-2) message] The sy stem which generated this result transmitted reference range : 4.20 - 10.70 10*3/?L. The reference range was not used to interpret this result as normal/abnormal . RBC (test code = See_Comment L [Automated 789-8) message] The sy stem which generated this result transmitted reference range : 4.26 - 5.52 10*6/?L. The reference range was not used to interpret this result as normal/abnormal . HGB (test code = 8.3 g/dL 12.2-16.4 L 718-7) HCT (test code = 29.1 % 38.4-49.3 L 4544-3) MCV (test code = 75.6 fL 81.7-95.6 L 787-2) MCH (test code = 21.6 pg 26.1-32.7 L 785-6) MCHC (test code = 28.5 g/dL 31.2-35 L 786-4) RDW-SD (test code = 61.9 fL 38.5-51.6 H 06924-7) RDW-CV (test code = 22.8 % 12.1-15.4 H 788-0) PLT (test code = See_Comment [Automated 777-3) message] The sy stem which generated this result transmitted reference range : 150 - 328 10*3/ ?L. The reference r jesus was not used to interpret this result as normal/abnormal . MPV (test code = 9.6 fL 9.8-13 L 41302-7) NRBC/100 WBC (test See_Comment [Automat ed code = 4436972574) message] The system which generated this result transmitted reference range : 0.0 - 10.0 /100 WBCs. The refer ence range was not u sed to interpret th is result as normal/abnormal . NRBC x10^3 (test code <0.01 See_Comment [Auto mated = 1773810497) message] The s ystem which generated this result transmitted reference range : 10*3/?L. The reference range was not used to interpret this result as normal/abnormal . GRAN MAT (NEUT) % 69.8 % (test code = 770-8) IMM GRAN % (test code 0.50 % = 7328730079) LYMPH % (test code = 19.3 % 736-9) MONO % (test code = 8.0 % 5905-5) EOS % (test code = 2.0 % 713-8) BASO % (test code = 0.4 % 706-2) GRAN MAT x10^3(ANC) 6.36 10*3/uL 1.99-6.95 (test code = 5039790104) IMM GRAN x10^3 (test 0.05 10*3/uL 0-0.06 code = 9983163177) LYMPH x10^3 (test code 1.76 10*3/uL 1.09-3.23 = 731-0) MONO x10^3 (test code 0.73 10*3/uL 0.36-1.02 = 742-7) EOS x10^3 (test code = 0.18 10*3/uL 0.06-0.53 711-2) BASO x10^3 (test code 0.04 10*3/uL 0.01-0.09 = 704-7) Lab Interpretation Abnormal (test code = 00131-4) [facility]OVID[facility] (ID NOW RAPID TESTING)2019-08-13 20:37:00 Test Item Value Reference Range Interpretation Comments SARS-CoV-2 Rapid ID NOW Not Detected Not Detected (test code = 99827-2) AKHIL (test code = AKHIL) ID NOW COVID-19 Assay is an isothermal nucleic acid amplification test intended for the qualitative detection of nucleic acid from SARS-CoV-2 viral RNA in nasopharyngeal (WE[employer]LYST) specimens. It is used under Emergency Use Authorization (EUA) by FDA. The limit of detection (LOD) of the assay is 125 Genome Equivalents/mL. A positive result is indicative of the presence of SARS-CoV-2 RNA. ?Clinical correlation with patient history and other diagnostic information is necessary to determine patient infection status. A negative (Not Detected) result does not preclude SARS-CoV-2 infection. In patients with clinical symptoms and other tests that are consistent with SARS-CoV-2 infection, negative results should be treated as presumptive negative and a new specimen should be tested with alternative PCR molecular test. Invalid: Please collect a new specimen for repeat patient testing if clinically indicated. Lab Interpretation Normal (test code = 68201-3) [facility]+ VW [id number] 19:38:32 No radiographic findings of osteomyelitis. MRI may be helpful for moresensitive evaluation of osteomyelitis. Soft tissue swelling. 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 The bony amputation margin is intact. No overt osseousdestruction or periosteal reaction is seen. Diffuse soft tissue swelling ispresent, more prominent in the forefoot. Diabetic type vascularcalcifications and surgical clips are noted.. [facility], Radiant Results Inft User - 08/13/2019 2:39 PM CDTEXAM:XR FOOT 3+ VW RIGHTHISTORY:amputation wound of right 2nd toe worsens COMPARISON:06/06/2019FINDINGS: Interval amputation of the second ray at the level of the proximal phalanxbase is seen. The bony amputation margin is intact. No overt osseousdestruction or periosteal reaction is seen. Diffuse soft tissue swelling ispresent, more prominent in the forefoot. Diabetic type vascularcal cifications and surgical clips are noted..IMPRESSIONNo radiographic findings of osteomyelitis. MRI may be helpful for moresensitive evaluation of osteomyelitis.Soft tissue swelling.[facility] TexasFOLATE 2019-08-07 21:37:00 Test Item Value Reference Range Interpretation Comments FOLATE SER (test code = 18.4 ng/mL 3-20 Biot in has been 0729214719) reported to cau se a positive bias, interpret resul ts relative to patient's use o f biotin. Lab Interpretation (test Normal code = 28355-4) [facility]2019-08-07 21:22:00 Test Item Value Reference Range Interpretation Comments POCT GLU (test code = 9237588849) 218 mg/dL 70-110 H Lab Interpretation (test code = Abnormal 02120-1) [facility] TexasVITAMIN B12, [id number] 20:49:00 Test Item Value Reference Range Interpretation Comments VIT B12 (test code = 921 pg/mL 240-930 6220290852) AKHIL (test code = AKHIL) Biotin has been reported to cause a positive bias, interpret results relative to patient's use of biotin. Lab Interpretation (test Normal code = 43554-8) [facility]HEMOGLOBIN2020-05-16 18:24:00 Test Item Value Reference Range Interpretation Comments HGB (test code = 718-7) 8.4 g/dL 12.2-16.4 L Lab Interpretation (test code = Abnormal 20943-6) [facility]2019-08-07 16:35:00 Test Item Value Reference Range Interpretation Comments POCT GLU (test code = 3105291970) 132 mg/dL 70-110 H Lab Interpretation (test code = Abnormal 68758-8) [facility] WITH [id number] 14:19:00 Test Item Value Reference Range Interpretation Comments WBC (test code = See_Comment [Automated 6690-2) message] The sy stem which generated this result transmitted reference range : 4.20 - 10.70 10*3/?L. The reference range was not used to interpret this result as normal/abnormal . RBC (test code = See_Comment L [Automated 789-8) message] The sy stem which generated this result transmitted reference range : 4.26 - 5.52 10*6/?L. The reference range was not used to interpret this result as normal/abnormal . HGB (test code = 8.2 g/dL 12.2-16.4 L 718-7) HCT (test code = 26.7 % 38.4-49.3 L 4544-3) MCV (test code = 72.8 fL 81.7-95.6 L 787-2) MCH (test code = 22.3 pg 26.1-32.7 L 785-6) MCHC (test code = 30.7 g/dL 31.2-35 L 786-4) RDW-SD (test code = 51.5 fL 38.5-51.6 08704-1) RDW-CV (test code = 19.8 % 12.1-15.4 H 788-0) PLT (test code = See_Comment [Automated 777-3) message] The sy stem which generated this result transmitted reference range : 150 - 328 10*3/ ?L. The reference r jesus was not used to interpret this result as normal/abnormal . MPV (test code = 9.9 fL 9.8-13 96522-3) NRBC/100 WBC (test See_Comment [Automat ed code = 8505820344) message] The system which generated this result transmitted reference range : 0.0 - 10.0 /100 WBCs. The refer ence range was not u sed to interpret th is result as normal/abnormal . NRBC x10^3 (test code See_Comment [Auto mated = 5947089938) message] The s ystem which generated this result transmitted reference range : 10*3/?L. The reference range was not used to interpret this result as normal/abnormal . GRAN MAT (NEUT) % 67.7 % (test code = 770-8) IMM GRAN % (test code 0.70 % = 0206298708) LYMPH % (test code = 19.8 % 736-9) MONO % (test code = 10.6 % 5905-5) EOS % (test code = 0.8 % 713-8) BASO % (test code = 0.4 % 706-2) GRAN MAT x10^3(ANC) 6.68 10*3/uL 1.99-6.95 (test code = 4493649334) IMM GRAN x10^3 (test 0.07 10*3/uL 0-0.06 H code = 5069340778) LYMPH x10^3 (test code 1.96 10*3/uL 1.09-3.23 = 731-0) MONO x10^3 (test code 1.05 10*3/uL 0.36-1.02 H = 742-7) EOS x10^3 (test code = 0.08 10*3/uL 0.06-0.53 711-2) BASO x10^3 (test code 0.04 10*3/uL 0.01-0.09 = 704-7) Lab Interpretation Abnormal (test code = 06698-5) [facility] (NA, K, CL, CO2, GLUCOSE, BUN, CREATININE, CA)2019-08-07 14:08:00 Test Item Value Reference Range Interpretation Comments NA (test code = 139 mmol/L 135-145 3744453862) K (test code = 4.8 mmol/L 3.5-5 0398529506) CL (test code = 108 mmol/L 98-108 5981507600) CO2 TOTAL (test code = 27 mmol/L 23-31 4399050715) AGAP (test code = 2-16 8664413992) BUN (test code = 24 mg/dL 7-23 H 6533104009) GLUCOSE (test code = 98 mg/dL 70-110 8475412397) CREATININE (test code = 1.12 mg/dL 0.6-1.25 6561218069) CALCIUM (test code = 8.7 mg/dL 8.6-10.6 6980654602) eGFR Calculation mL/min/1.73m2 (Non-) (test code = 8494311351) eGFR Calculation mL/min/1.73m2 () (test code = 7019675725) AKHIL (test code = AKHIL) Association of Glomerular Filtration Rate (GFR) and Staging of Kidney Disease* + --+ --+ ------+| GFR (mL/min/1.73 m2) ?| With Kidney Damage ?| ?Without Kidney Damage+ --------+ --------+ +| ?>90 ?| ?Stage one ?| ? Normal ?+ ---+ ---+ -------+| ?60-89 ?| ?Stage two ?| ? Decreased GFR ? + --+ --+ ------+| ?30-59 ?| ?Stage three ?| ? Stage three ? + --+ --+ ------+| ?15-29 ?| ?Stage four ? | ? Stage four ?+ ---+ ---+ -------+| ?<15 (or dialysis) ? ?| ?Stage five ? | ? Stage five ?+ ---+ ---+ -------+ *Each stage assumes the associated GFR level has been in effect for at least three months. ?Stages 1 to 5, with or without kidney disease, indicate chronic kidney disease. Notes: Determination of stages one and two (with eGFR >59mL/min/1.73 m2) requires estimation of kidney damage for at least three months as defined by structural or functional abnormalities of the kidney, manifested by either:Pathological abnormalities or Markers of kidney damage (including abnormalities in the composition of the blood or urine or abnormalities in imaging tests). Lab Interpretation Abnormal (test code = 26216-4) [facility]HEMOGLOBIN2020-05-16 14:06:00 Test Item Value Reference Range Interpretation Comments HGB (test code = 718-7) 8.2 g/dL 12.2-16.4 L Lab Interpretation (test code = Abnormal 55374-6) [facility]2019-08-07 13:53:00 Test Item Value Reference Range Interpretation Comments POCT GLU (test code = 1231808813) 153 mg/dL 70-110 H Lab Interpretation (test code = Abnormal 26104-8) [facility] TexasPrepare Packed RBC (in units), 2 Units 2019-08-07 07:41:17 Test Item Value Reference Range Interpretation Comments Cross Match Result Compatible (test code = 4409) ISBT Blood Type Code (test code = 133108) Unit Blood Type (test A Pos code = 4410) Unit Number (test [id number] code = 4411) Blood Expiration Date & Time (test code = 004801) Status Information Issued (test code = 4412) Product Red Blood Cells Identification (test code = 4413) Product Code (test S4870N65 Performed at [facility] code = 4414) Laboratory Services - [facility] Blood [address] [place] [id number] Free: [phone] A No. [id number] [facility]HEMOGLOBIN2020-05-16 05:26:00 Test Item Value Reference Range Interpretation Comments HGB (test code = 718-7) 6.8 g/dL 12.2-16.4 L Lab Interpretation (test code = Abnormal 52043-2) [facility]HEMATOCRIT2020-05-16 05:26:00 Test Item Value Reference Range Interpretation Comments HCT (test code = 4544-3) 23.2 % 38.4-49.3 L Lab Interpretation (test code = Abnormal 97766-6) [facility]2019-08-06 22:03:00 Test Item Value Reference Range Interpretation Comments POCT GLU (test code = 3934106083) 130 mg/dL 70-110 H Lab Interpretation (test code = Abnormal 59007-9) [facility] TexasMagnesium [id number] 21:25:00 Test Item Value Reference Range Interpretation Comments MAGNESIUM (test code = 5535430100) 2.4 mg/dL 1.7-2.4 Lab Interpretation (test code = Normal 00385-6) [facility] TexasFERRITIN [id number] 20:43:00 Test Item Value Reference Range Interpretation Comments FERRITIN (test code = 4.7 ng/mL 18-464 L 8700578045) AKHIL (test code = AKHIL) Biotin has been reported to cause a negative bias, interpret results relative to patient's use of biotin. Lab Interpretation (test Abnormal code = 79559-9) [facility] TexasTHYROID STIMULATING [id number] 20:39:00 Test Item Value Reference Range Interpretation Comments TSH (test code = See_Comment [Automated message] 0095615266) The system [employer] h generated this result transmitted ref erence range: 0.45 - 4 .70 mIU/L. The refe rence range was not u sed to interpret this result as normal/abnor mal. Lab Interpretation (test Normal code = 49186-0) [facility] TexasRETICULOCYTES [id number] 20:30:00 Test Item Value Reference Range Interpretation Comments RETIC Count Automated 1.72 % 0.59-2.24 (test code = 5902811866) RETIC Absolute Count See_Comment [Autom ated message] (test code = 9558979123) The system which generated this result transmitted ref erence range: 0.0260 - 0.1170 10*6/?L. The reference range was not used to int erpret this result as normal/abnormal . IRF % (test code = 17.70 % 2-19.4 6149236240) RETIC-HE (test code = 14.1 pg 27.3-36.4 L 7483407100) Lab Interpretation (test Abnormal code = 48469-5) [facility] TexasIRON [id number] 20:15:00 Test Item Value Reference Range Interpretation Comments IRON (test code = 3032038029) 12 ug/dL 50-160 L TIBC (test code = 2081022069) 424 ug/dL 250-410 H % FE SAT (test code = 7085532324) 3 % 20-50 L Lab Interpretation (test code = Abnormal 37196-2) [facility] TexasURINALYSIS2020-05-15 19:43:00 Test Item Value Reference Range Interpretation Comments APPEARANCE (test code = Clear Clear 1063939611) COLOR (test code = Straw Yellow A 3589396092) PH (test code = 4.8-8.0 4686346185) SP GRAVITY (test code = 1.003-1.030 5668385639) GLU U QUAL (test code = Normal Normal 7725250834) BLOOD (test code = Negative Negative 1401985264) KETONES (test code = Negative Negative 9966893457) PROTEIN (test code = Negative Negative 2887-8) UROBILIN (test code = Normal Normal 9253874528) BILIRUBIN (test code = Negative Negative 1847780558) NITRITE (test code = Negative Negative 5132224023) LEUK DEBI (test code = Negative Negative 1740114473) RBC/HPF (test code = See_Comment [Autom ated message] 5730241335) The system [employer] generated this result transmitted ref erence range: 0 - 3 HP F. The reference range was not used to int erpret this result as normal/abnormal . WBC/HPF (test code = <1 See_Comment [Autom ated message] 1582504549) The system 1001 [employer] generated this result transmitted ref erence range: 0 - 5 HP F. The reference range was not used to int erpret this result as normal/abnormal . BACTERIA (test code = Negative Negative 7217209593) MUCOUS (test code = Slight Negative LPF A 6524848047) SQ EPITH (test code = <1 HPF 8206244719) HYAL CAST (test code = See_Comment H [Aut omated message] 9783326302) The system 100[employer] generated this result transmitted ref erence range: <=2 LPF. The reference range was not used to int erpret this result as normal/abnormal . Lab Interpretation (test Abnormal code = 81305-1) [facility] TexasCT ANGIOGRAM [id number] 19:37:52 No acute intracranial abnormality. No large territory infarction identifiedwithin the limitations of CT. MRI with diffusion weighted imaging is moresensitive for the detection of acute ischemia. Suboptimal CTA of the head secondary to significant venous contamination.Scattered atherosclerotic calcifications of the intracranial vasculaturewith severe narrowing of the distal left cavernous and paraclinoidsegments. No proximal anterior large vessel occlusion is seen. While right vertebral artery is hypoplastic, there is non calcified andcalcified atherosclerosis as the right vertebral artery traverses the durawith trace opacification of the right V4 segment, which could reflect highgrade stenosis and/or occlusion. Clinically correlate. ? Approximately 50% stenosis of the left proximal internal carotid artery byNASCET criteria. Preliminary Report Dictated by Resident: Tess Sylvester ?MD Nancy., have reviewed this study and agree with theabove report.CT HEAD WITHOUT CONTRAST HISTORY: Stroke suspected, focal neuro deficit, < 6 hrs Altered mentalstatus (AMS), unclear cause Left sided mouth droop, right sided oblongpupil COMPARISON: ?None. TECHNIQUE: CT axial images of the head were obtained from vertex to skullbase. Multiplanar reformats were submitted for review. FINDINGS: CT HEAD: The ventricles and sulci are prominent, compatible with volume loss. Nointracranial abnormality such as hemorrhage, edema, mass-effect, midlineshift, hydrocephalus or extra axial fluid collection is appreciated. Thebasal cisterns are patent. Scattered periventricular hypodensities most pronounced in the rightfrontal region are nonspecific but likely reflect small vessel ischemicdisease. Coarse bilateral basal ganglia mineralization is noted. Dentatenuclei calcifications. The love-white matter differentiation is preserved. Intracranial atherosclerosis noted. Two non specific small calcificationsright frontal and parietal may reflect sequela of chronic infection. The calvarium and skull base are intact. ?Maxillary sinus mucosalthickening. Bilateral pseudophakia. CTA HEAD: IMAGES QUALITY: Coronal MIP images are reversed in the horizontal plane.MIP reconstructions also demonstrate significant skipping due to suboptimalslice thickness. Suboptimal CTA secondary to poor contrast timing ascontrast is denser in the dural sinuses. The left PICA origin is not seen and left PICA AICA variant is suspected.Dominant left vertebral artery. Progressive low attenuation in thediminutive right vertebral artery which is suspected to terminate in PICA.Atherosclerotic calcifications most pronounced within the left vertebralartery with mild to moderate luminal narrowing. The basilar artery isnormal in caliber. The superior cerebellar arteries are unremarkable. Theposterior cerebral arteries are unremarkable. Small posterior communicatingarteries are seen. Tortuous distal cervical ICA segment on the left . The petrous segments areunremarkable. Scattered atherosclerotic calcifications within the cavernousand supraclinoid segments more pronounced on the left with severe narrowingof the mid and distal left cavernous segments and moderate to severenarrowing of the right supraclinoid segment. The anterior and middlecerebral arteries are patent. Hypoplastic right A1 segment noted. Ananterior communicating artery is faintly visualized. JOSH trifurcation,anatomic variant. CT ANGIOGRAM NECK: Classic three-vessel arch anatomy identified. Scant atheroscleroticcalcifications of the arch with extension to the great vessel ostia. Thegreat vessel ostia are patent. The subclavian arteries demonstrate normal contrast opacification. Soft plaque noted within the distal common carotid arteries with mild tomoderate luminal narrowing on the left. Atherosclerotic calcifications ofthe left carotid bulb without up to moderate luminal narrowing of theproximal left ICA approximately 50% by NASCET criteria. The right internalcarotid artery is patent. The vertebral artery ostia patent. Gradual flow attenuation in the [id number] may reflect chronic high-grade stenosis or occlusion. The cervicalcourse of the left vertebral artery is patent. Dominant left vertebralartery. Cervical spine degenerative changes and sternotomy wires. Multinodularthyroid with mild asymmetric enlargement of the right lobe and 1.4 cm rightthyroid nodule. Subcentimeter calcified nodule on the right also seen. [facility], Radiant Results Inft User -08/06/2019 2:39 PM CDTCT HEAD WITHOUT CONTRASTHISTORY: Stroke suspected, focal neuro deficit, < 6hrs Altered mentalstatus (AMS), unclear cause Left sided mouth droop, right sided oblongpupilCOMPARISON: None.TECHNIQUE: CT axial images of the head were obtained from vertex to skullbase. Multiplanar reformats were submitted for review.FINDINGS:CT HEAD:The ventricles and sulci are prominent, compatible with volume loss. Nointracranial abnormality such as hemorrhage, edema, mass-effect, midlineshift,hydrocephalus or extra axial fluid collection is appreciated. Thebasal cisterns are patent.Scatteredperiventricular hypodensities most pronounced in the rightfrontal region are nonspecific but likely reflect small vessel ischemicdisease. Coarse bilateral basal ganglia mineralization is noted. Dentatenuclei calcifications. The love-white matter differentiation is preserved.Intracranial atherosclerosis noted. Two non specific small calcificationsright frontal and parietal may reflect sequela of chronic infection. The calvarium and skull base are intact. Maxillary sinus mucosalthickening. Bilateral pseudophakia.CTA HEAD:IMAGES QUALITY: Coronal MIP images are reversed in the horizontal plane.MIP reconstructions also demonstrate significant skipping due to suboptimalslice thickness. Suboptimal CTA secondary to poor contrast timing ascontrast is denser in the dural sinuses. The left PICA origin is not seen and left PICA AICA variant is suspected.Dominant left vertebral artery. Progressive low attenuation in thediminutive right vertebral artery which is suspected to terminate in PICA.Atheroscleroticcalcifications most pronounced within the left vertebralartery with mild to moderate luminal narrowing. The basilar artery isnormal in caliber. The superior cerebellar arteries are unremarkable. Theposterior cerebral arteries are unremarkable. Small posterior communicatingarteries are seen.Tortuous distal cervical ICA segment on the left. The petrous segments areunremarkable. Scattered atherosclerotic calcifications within the cavernousand supraclinoid segments more pronounced on the left with severe narrowingof the mid and distal left cavernous segments and moderate to severenarrowing of the rightsupraclinoid segment. The anterior and middlecerebral arteries are patent. Hypoplastic right A1 segment noted. Ananterior communicating artery is faintly visualized. JOSH trifurcation,anatomic variant. CT ANGIOGRAM NECK:Classic three-vessel arch anatomy identified. Scant atheroscleroticcalcifications of the arch with extension to the great vessel ostia. Thegreat vessel ostia are patent. The subclavianarteries demonstrate normal contrast opacification.Soft plaque noted within the distal common carotid arteries with mild tomoderate luminal narrowing on the left. Atherosclerotic calcifications ofthe left carotid bulb without up to moderate luminal narrowing of theproximal left ICA approximately 50% by NASCET criteria. The right internalcarotid artery is patent. The vertebral artery ostia patent. Gradual flow attenuation in the right [id number] may reflect chronic high-grade stenosis or occlusion. The cervicalcourse of the left vertebral artery is patent. Dominant left vertebralartery. Cervical spine degenerative changes and sternotomy wires. Multinodularthyroid with mild asymmetric enlargement of the right lobe and 1.4 cm rightthyroid nodule. Subcentimeter calcified nodule on the right also seen.IMPRESSIONNo acute intracranial abnormality. No large territory infarction identifiedwithin the limitations of CT. MRI with diffusion weighted imaging is moresensitive for the detection of acute ischemia. Suboptimal CTA of the head secondary to significant venous contamination.Scattered atheroscleroticcalcifications of the intracranial vasculaturewith severe narrowing of the distal left cavernous and paraclinoidsegments. No proximal anterior large vessel occlusion is seen.While right vertebral artery is hypoplastic, there is non calcified andcalcified atherosclerosis as the right vertebral artery traverses the durawith trace opacification of the right V4 segment, which could reflect highgrade stenosis and/or occlusion. Clinically correlate. Approximately 50% stenosis of the left proximal internalcarotid artery byNASCET criteria. Preliminary Report Dictated by Resident: Tess El MD., have reviewed this study and agree with theabove report.[facility] [id number] 19:37:52 No acute intracranial abnormality. No large territory infarction identifiedwithin the limitations of CT. MRI with diffusion weighted imaging is moresensitive for the detection of acute ischemia. Subopt imal CTA of the head secondary to significant venous contamination.Scattered atherosclerotic calcifications of the intracranial vasculaturewith severe narrowing of the distal left cavernous and paraclinoidsegments. No proximal anterior large vessel occlusion is seen. While right vertebral artery is hyp oplastic, there is non calcified andcalcified atherosclerosis as the right vertebral artery traverses the durawith trace opacification of the right V4 segment, which could reflect highgrade stenosis and/or occlusion. Clinically correlate. ? Approximately 50% stenosis of the left proximal internal carotid artery byNASCET criteria. Preliminary Report Dictated by Resident: Tess Sylvester MD., have reviewed this study and agree with theabove report.CT HEAD WITHOUT CONTRAST HISTORY: Stroke suspected, focal neuro deficit, < 6 hrs Altered mentalstatus (AMS), unclear cause Left sided mouth droop, right sided oblongpupil COMPARISON: ?None. TECHNIQUE: CT axial images of the head were obtained from vertex to skullbase. Multiplanar reformats were submitted for review. FINDINGS: CT HEAD: The ventricles and sulci are prominent, compatible with volume loss. Nointracranial abnormality such as hemorrhage, edema, mass-effect, midlineshift, hydrocephalus or extra axial fluid collection is appreciated. Thebasal cisterns are patent. Scattered periventricular hypodensities most pronounced in the rightfrontal region are nonspecific but likely reflect small vessel ischemicdisease. Coarse bilateral basal ganglia mineralization is noted. Dentatenuclei calcifications. The love-white matter differentiation is preserved. Intracranial atherosclerosis noted. Two non specific small calcificationsright frontal and parietal may reflect sequela of chronic infection. The calvarium and skull base are intact. ?Maxillary sinus mucosalthickening. Bilateral pseudophakia. CTA HEAD: IMAGES QUALITY: Coronal MIP images are reversed in the horizontal plane.MIP reconstructions also demonstrate significant skipping due to suboptimalslice thickness. Suboptimal CTA secondary to poor contrast timing ascontrast is denser in the dural sinuses. The left PICA origin is not seen and left PICA AICA variant is suspected.Dominant left vertebral artery. Progressive low attenuation in thediminutive right vertebral artery which is suspected to terminate in PICA.Atherosclerotic calcifications most pronounced within the left vertebralartery with mild to moderate luminal narrowing. The basilar artery isnormal in caliber. The superior cerebellar arteries are unremarkable. Theposterior cerebral arteries are unremarkable. Small posterior communicatingarteries are seen. Tortuous distal cervical ICA segment on the left. The petrous segments areunremarkable. Scattered atherosclerotic calcifications within the cavernousand supraclinoid segments more pronounced on the left with severe narrowingof the mid and distal left cavernous segments and moderate to severenarrowing of the right supraclinoid segment. The anterior and middlecerebral arteries are patent. Hypoplastic right A1 segment noted. Ananterior communicating artery is faintly visualized. JOSH trifurcation,anatomic variant. CT ANGIOGRAM NECK: Classic three-vessel arch anatomy identified. Scant atheroscleroticcalcifications of the arch with extension to the great vessel ostia. Thegreat vessel ostia are patent. The subclavian arteries demonstrate normal contrast opacification. Soft plaque noted within the distal common carotid arteries with mild tomoderate luminal narrowing on the left. Atherosclerotic calcifications ofthe left carotid bulb without up to moderate luminal narrowing of theproximal left ICA approximately 50% by NASCET criteria. The right internalcarotid artery is patent. The vertebral artery ostia patent. Gradual flow attenuation in the [id number] may reflect chronic high-grade stenosis or occlusion. The cervicalcourse of the left verteb ral artery is patent. Dominant left vertebralartery. Cervical spine degenerative changes and sternotomy wires. Multinodularthyroid with mild asymmetric enlargement of the right lobe and 1.4 cm rightthyroid nodule. Subcentimeter calcified nodule on the right also seen. [facility], Radiant Results Inft User - 08/06/2019 2:39 PM CDTCT HEAD WITHOUT CONTRASTHISTORY: Stroke suspected, focal neuro deficit, < 6hrs Altered mentalstatus (AMS), unclear cause Left sided mouth droop, right sided oblongpupilCOMPARISON: None.TECHNIQUE: CT axial images of the head were obtained from vertex to skullbase. Multiplanar reformats were submitted for review.FINDINGS:CT HEAD:The ventricles and sulci are prominent, compatible with volume loss. Nointracranial abnormality such as hemorrhage, edema, mass-effect, midlineshift,hydrocephalus or extra axial fluid collection is appreciated. Thebasal cisterns are patent.Scatteredperiventricular hypodensities most pronounced in the rightfrontal region are nonspecific but likely reflect small vessel ischemicdisease. Coarse bilateral basal ganglia mineralization is noted. Dentatenuclei calcifications. The love-white matter differentiation is preserved.Intracranial atherosclerosis noted. Two non specific small calcificationsright frontal and parietal may reflect sequela of chronic infection. The calvarium and skull base are intact. Maxillary sinus mucosalthickening. Bilateral pseudophakia.CTA HEAD:IMAGES QUALITY: Coronal MIP images are reversed in the horizontal plane.MIP reconstructions also demonstrate significant skipping due to suboptimalslice thickness. Suboptimal CTA secondary to poor contrast timing ascontrast is denser in the dural sinuses. The left PICA origin is not seen and left PICA AICA variant is suspected.Dominant left vertebral artery. Progressive low attenuation in thediminutive right vertebral artery which is suspected to terminate in PICA.Atheroscleroticcalcifications most pronounced within the left vertebralartery with mild to moderate luminal narrowing. The basilar artery isnormal in caliber. The superior cerebellar arteries are unremarkable. Theposterior cerebral arteries are unremarkable. Small posterior communicatingarteries are seen.Tortuous distal cervical ICA segment on the left. The petrous segments areunremarkable. Scattered atherosclerotic calcifications within the cavernousand supraclinoid segments more pronounced on the left with severe narrowingof the mid and distal left cavernous segments and moderate to severenarrowing of the rightsupraclinoid segment. The anterior and middlecerebral arteries are patent. Hypoplastic right A1 segment noted. Ananterior communicating artery is faintly visualized. JOSH trifurcation,anatomic variant. CT ANGIOGRAM NECK:Classic three-vessel arch anatomy identified. Scant atheroscleroticcalcifications of the arch with extension to the great vessel ostia. Thegreat vessel ostia are patent. The subclavianarteries demonstrate normal contrast opacification.Soft plaque noted within the distal common carotid arteries with mild tomoderate luminal narrowing on the left. Atherosclerotic calcifications ofthe left carotid bulb without up to moderate luminal narrowing of theproximal left ICA approximately 50% by NASCET criteria. The right internalcarotid artery is patent. The vertebral artery ostia patent. Gradual flow attenuation in the right [id number] may reflect chronic high-grade stenosis or occlusion. The cervicalcourse of the left vertebral artery is patent. Dominant left vertebralartery. Cervical spine degenerative changes and sternotomy wires. Multinodularthyroid with mild asymmetric enlargement of the right lobe and 1.4 cm rightthyroid nodule. Subcentimeter calcified nodule on the right also seen.IMPRESSIONNo acute intracranial abnormality. No large territory infarction identifiedwithin the limitations of CT. MRI with diffusion weighted imaging is moresensitive for the detection of acute ischemia. Suboptimal CTA of the head secondary to significant venous contamination.Scattered atheroscleroticcalcifications of the intracranial vasculaturewith severe narrowing of the distal left cavernous and paraclinoidsegments. No proximal anterior large vessel occlusion is seen.While right vertebral artery is hypoplastic, there is non calcified andcalcified atherosclerosis as the right vertebral artery traverses the durawith trace opacification of the right V4 segment, which could reflect highgrade stenosis and/or occlusion. Clinically correlate. Approximately 50% stenosis of the left proximal internalcarotid artery byNASCET criteria. Preliminary Report Dictated by Resident: Tess El MD., have reviewed this study and agree with theabove report.[facility] WO [id number] 19:37:52 No acute intracranial abnormality. No large territory infarction identifiedwithin the limitations of CT. MRI with diffusion weighted imaging is moresensitive for the detection of acute ischemia. Subopt imal CTA of the head secondary to significant venous contamination.Scattered atherosclerotic calcifications of the intracranial vasculaturewith severe narrowing of the distal left cavernous and paraclinoidsegments. No proximal anterior large vessel occlusion is seen. While right vertebral artery is hyp oplastic, there is non calcified andcalcified atherosclerosis as the right vertebral artery traverses the durawith trace opacification of the right V4 segment, which could reflect highgrade stenosis and/or occlusion. Clinically correlate. ? Approximately 50% stenosis of the left proximal internal carotid artery byNASCET criteria. Preliminary Report Dictated by Resident: Tess Sylvester ?MD Nancy., have reviewed this study and agree with theabove report.CT HEAD WITHOUT CONTRAST HISTORY: Stroke suspected, focal neuro deficit, < 6 hrs Altered mentalstatus (AMS), unclear cause Left sided mouth droop, right sided oblongpupil COMPARISON: ?None. TECHNIQUE: CT axial images of the head were obtained from vertex to skullbase. Multiplanar reformats were submitted for review. FINDINGS: CT HEAD: The ventricles and sulci are prominent, compatible with volume loss. Nointracranial abnormality such as hemorrhage, edema, mass-effect, midlineshift, hydrocephalus or extra axial fluid collection is appreciated. Thebasal cisterns are patent. Scattered periventricular hypodensities most pronounced in the rightfrontal region are nonspecific but likely reflect small vessel ischemicdisease. Coarse bilateral basal ganglia mineralization is noted. Dentatenuclei calcifications. The love-white matter differentiation is preserved. Intracranial atherosclerosis noted. Two non specific small calcificationsright frontal and parietal may reflect sequela of chronic infection. The calvarium and skull base are intact. ?Maxillary sinus mucosalthickening. Bilateral pseudophakia. CTA HEAD: IMAGES QUALITY: Coronal MIP images are reversed in the horizontal plane.MIP reconstructions also demonstrate significant skipping due to suboptimalslice thickness. Suboptimal CTA secondary to poor contrast timing ascontrast is denser in the dural sinuses. The left PICA origin is not seen and left PICA AICA variant is suspected.Dominant left vertebral artery. Progressive low attenuation in thediminutive right vertebral artery which is suspected to terminate in PICA.Atherosclerotic calcifications most pronounced within the left vertebralartery with mild to moderate luminal narrowing. The basilar artery isnormal in caliber. The superior cerebellar arteries are unremarkable. Theposterior cerebral arteries are unremarkable. Small posterior communicatingarteries are seen. Tortuous distal cervical ICA segment on the left. The petrous segments areunremarkable. Scattered atherosclerotic calcifications within the cavernousand supraclinoid segments more pronounced on the left with severe narrowingof the mid and distal left cavernous segments and moderate to severenarrowing of the right supraclinoid segment. The anterior and middlecerebral arteries are patent. Hypoplastic right A1 segment noted. Ananterior communicating artery is faintly visualized. JOSH trifurcation,anatomic variant. CT ANGIOGRAM NECK: Classic three-vessel arch anatomy identified. Scant atheroscleroticcalcifications of the arch with extension to the great vessel ostia. Thegreat vessel ostia are patent. The subclavian arteries demonstrate normal contrast opacification. Soft plaque noted within the distal common carotid arteries with mild tomoderate luminal narrowing on the left. Atherosclerotic calcifications ofthe left carotid bulb without up to moderate luminal narrowing of theproximal left ICA approximately 50% by NASCET criteria. The right internalcarotid artery is patent. The vertebral artery ostia patent. Gradual flow attenuation in the [id number] may reflect chronic high-grade stenosis or occlusion. The cervicalcourse of the left verteb ral artery is patent. Dominant left vertebralartery. Cervical spine degenerative changes and sternotomy wires. Multinodularthyroid with mild asymmetric enlargement of the right lobe and 1.4 cm rightthyroid nodule. Subcentimeter calcified nodule on the right also seen. [facility], Radiant Results Inft User - 08/06/2019 2:39 PM CDTCT HEAD WITHOUT CONTRASTHISTORY: Stroke suspected, focal neuro deficit, < 6hrs Altered mentalstatus (AMS), unclear cause Left sided mouth droop, right sided oblongpupilCOMPARISON: None.TECHNIQUE: CT axial images of the head were obtained from vertex to skullbase. Multiplanar reformats were submitted for review.FINDINGS:CT HEAD:The ventricles and sulci are prominent, compatible with volume loss. Nointracranial abnormality such as hemorrhage, edema, mass-effect, midlineshift,hydrocephalus or extra axial fluid collection is appreciated. Thebasal cisterns are patent.Scatteredperiventricular hypodensities most pronounced in the rightfrontal region are nonspecific but likely reflect small vessel ischemicdisease. Coarse bilateral basal ganglia mineralization is noted. Dentatenuclei calcifications. The love-white matter differentiation is preserved.Intracranial atherosclerosis noted. Two non specific small calcificationsright frontal and parietal may reflect sequela of chronic infection. The calvarium and skull base are intact. Maxillary sinus mucosalthickening. Bilateral pseudophakia.CTA HEAD:IMAGES QUALITY: Coronal MIP images are reversed in the horizontal plane.MIP reconstructions also demonstrate significant skipping due to suboptimalslice thickness. Suboptimal CTA secondary to poor contrast timing ascontrast is denser in the dural sinuses. The left PICA origin is not seen and left PICA AICA variant is suspected.Dominant left vertebral artery. Progressive low attenuation in thediminutive right vertebral artery which is suspected to terminate in PICA.Atheroscleroticcalcifications most pronounced within the left vertebralartery with mild to moderate luminal narrowing. The basilar artery isnormal in caliber. The superior cerebellar arteries are unremarkable. Theposterior cerebral arteries are unremarkable. Small posterior communicatingarteries are seen.Tortuous distal cervical ICA segment on the left. The petrous segments areunremarkable. Scattered atherosclerotic calcifications within the cavernousand supraclinoid segments more pronounced on the left with severe narrowingof the mid and distal left cavernous segments and moderate to severenarrowing of the rightsupraclinoid segment. The anterior and middlecerebral arteries are patent. Hypoplastic right A1 segment noted. Ananterior communicating artery is faintly visualized. JOSH trifurcation,anatomic variant. CT ANGIOGRAM NECK:Classic three-vessel arch anatomy identified. Scant atheroscleroticcalcifications of the arch with extension to the great vessel ostia. Thegreat vessel ostia are patent. The subclavianarteries demonstrate normal contrast opacification.Soft plaque noted within the distal common carotid arteries with mild tomoderate luminal narrowing on the left. Atherosclerotic calcifications ofthe left carotid bulb without up to moderate luminal narrowing of theproximal left ICA approximately 50% by NASCET criteria. The right internalcarotid artery is patent. The vertebral artery ostia patent. Gradual flow attenuation in the right [id number] may reflect chronic high-grade stenosis or occlusion. The cervicalcourse of the left vertebral artery is patent. Dominant left vertebralartery. Cervical spine degenerative changes and sternotomy wires. Multinodularthyroid with mild asymmetric enlargement of the right lobe and 1.4 cm rightthyroid nodule. Subcentimeter calcified nodule on the right also seen.IMPRESSIONNo acute intracranial abnormality. No large territory infarction identifiedwithin the limitations of CT. MRI with diffusion weighted imaging is moresensitive for the detection of acute ischemia. Suboptimal CTA of the head secondary to significant venous contamination.Scattered atheroscleroticcalcifications of the intracranial vasculaturewith severe narrowing of the distal left cavernous and paraclinoidsegments. No proximal anterior large vessel occlusion is seen.While right vertebral artery is hypoplastic, there is non calcified andcalcified atherosclerosis as the right vertebral artery traverses the durawith trace opacification of the right V4 segment, which could reflect highgrade stenosis and/or occlusion. Clinically correlate. Approximately 50% stenosis of the left proximal internalcarotid artery byNASCET criteria. Preliminary Report Dictated by Resident: Tess El MD., have reviewed this study and agree with theabove report.[facility] CORONAVIRUS COVID-19 [id number] 19:23:00 Test Item Value Reference Range Interpretation Comments SARS-CoV-2 (test code = Not Detected Not Detected 37679-5) AKHIL (test code = AKHIL) ID NOW COVID-19 Assay is an isothermal nucleic acid amplification test intended for the qualitative detection of nucleic acid from SARS-CoV-2 viral RNA in nasopharyngeal (WEB MARKETING ANALYST) specimens. It is used under Emergency Use Authorization (EUA) by FDA. The limit of detection (LOD) of the assay is 125 Genome Equivalents/mL. A positive result is indicative of the presence of SARS-CoV-2 RNA. ?Clinical correlation with patient history and other diagnostic information is necessary to determine patient infection status. A negative (Not Detected) result does not preclude SARS-CoV-2 infection. Clinical correlation with patient history and other diagnostic information should be used in patient management decisions. Invalid: Please collect a new specimen for repeat patient testing if clinically indicated. Lab Interpretation Normal (test code = 51796-1) [facility] Texas[facility] Screen - ONCE [id number] 18:56:06 Test Item Value Reference Range Interpretation Comments ABO & RH (test code A Positive Performe d at [facility] = 20) Laboratory [facility] [address] [place] [id number] Free: [phone] A No. [id number] IAT (test code = Negative Performed a t [facility] 1185) Laboratory [facility] [address] [place] [id number] Free: [phone] A No. [id number] [facility] [id number] 18:26:00 Test Item Value Reference Range Interpretation Comments TROPONIN I (test <0.012 See_Comment [Automated code = 5095826222) message] The system which generated this result transmitted reference range : <=0.034 ng/mL. The reference range was not used to interpr et this result as normal/abnormal . AKHIL (test code = Equal or Less than AKHIL) 0.034 ng/ml---Normal ?Note: Cardiac troponin begins to rise 3-4 hours after the onset of ischemia. Repeat in 4-6 hours if the sample was drawn within 3-4 hours of the onset of the symptom and found normal. Between 0.035 and 0.120 ng/mL--- Borderline. Questionable myocardial injury or necrosis ? ?Note: Serial measurement may be necessary to confirm or exclude the diagnosis of myocardial injury or necrosis; Clinical correlation (symptoms, EKGs, imaging studies, and others) required; Repeat in 4-6 hours if clinically indicated. ? Equal or Higher than 0.121 ng/mL---Abnormal. Myocardial Injury or Necrosis Likely ? Biotin has been reported to cause a negative bias, interpret results relative to patient's use of biotin. ? Lab Interpretation Normal (test code = 71545-1) [facility] Texas[facility]. METABOLIC PANEL (04975)2019-08-06 17:59:00 Test Item Value Reference Range Interpretation Comments NA (test code = 139 mmol/L 135-145 0165898717) K (test code = 5.0 mmol/L 3.5-5 3438119088) CL (test code = 106 mmol/L 98-108 7655478159) CO2 TOTAL (test code = 25 mmol/L 23-31 6394897764) AGAP (test code = 2-16 8072272057) BUN (test code = 33 mg/dL 7-23 H 8441314851) GLUCOSE (test code = 107 mg/dL 70-110 8973738899) CREATININE (test code = 1.43 mg/dL 0.6-1.25 H 7159760048) TOTAL BILI (test code = 0.3 mg/dL 0.1-1.5 6875602824) CALCIUM (test code = 8.7 mg/dL 8.6-10.6 9924657340) T PROTEIN (test code = 6.9 g/dL 6.3-8.2 1020871143) ALBUMIN (test code = 4.0 g/dL 3.5-5 1560884255) ALK PHOS (test code = 59 U/L 34-122 6954665007) ALTv (test code = 46 U/L 5-50 1742-6) AST(SGOT) (test code = 29 U/L 13-40 0144322030) eGFR Calculation mL/min/1.73m2 (Non-) (test code = 7636817156) eGFR Calculation mL/min/1.73m2 () (test code = 3835491341) AKHIL (test code = AKHIL) Association of Glomerular Filtration Rate (GFR) and Staging of Kidney Disease* + --+ --+ ------+| GFR (mL/min/1.73 m2) ?| With Kidney Damage ?| ?Without Kidney Damage+ --------+ --------+ +| ?>90 ?| ?Stage one ?| ? Normal ?+ ---+ ---+ -------+| ?60-89 ?| ?Stage two ?| ? Decreased GFR ? + --+ --+ ------+| ?30-59 ?| ?Stage three ?| ? Stage three ? + --+ --+ ------+| ?15-29 ?| ?Stage four ? | ? Stage four ?+ ---+ ---+ -------+| ?<15 (or dialysis) ? ?| ?Stage five ? | ? Stage five ?+ ---+ ---+ -------+ *Each stage assumes the associated GFR level has been in effect for at least three months. ?Stages 1 to 5, with or without kidney disease, indicate chronic kidney disease. Notes: Determination of stages one and two (with eGFR >59mL/min/1.73 m2) requires estimation of kidney damage for at least three months as defined by structural or functional abnormalities of the kidney, manifested by either:Pathological abnormalities or Markers of kidney damage (including abnormalities in the composition of the blood or urine or abnormalities in imaging tests). Lab Interpretation Abnormal (test code = 49574-6) [facility] TexasPROTHROMBIN TIME / [id number] 17:56:00 Test Item Value Reference Range Interpretation Comments PROTIME PATIENT (test See_Comment [Auto mated message] code = 5964-2) The system wh ich generated this result transmitted ref erence range: 12.0 - 1 4.7 Seconds. The re ference range was not u sed to interpret this result as normal/abnor mal. INR (test code = 6301-6) Nor mal INR <1.1; Warfarin Therap eutic range 2.0 to 3. 0 or 2.5 to 3.5, dep ending upon the indica tions. Lab Interpretation (test Normal code = 51173-7) [facility] TexasaPTT2020-05-15 17:55:00 Test Item Value Reference Range Interpretation Comments APTT Patient (test See_Comment [Automat ed code = 3173-2) message] The system which generated this result transmitted reference range : 23 - 38 Seconds . The reference range was not used to interpr et this result as normal/abnormal . AKHIL (test code = AKHIL) The [facility] patient population mean normal value for aPTT is 30 seconds. Lab Interpretation Normal (test code = 76025-5) [facility] TexasCBC WITH [id number] 17:48:00 Test Item Value Reference Range Interpretation Comments WBC (test code = See_Comment [Automated 6690-2) message] The sy stem which generated this result transmitted reference range : 4.20 - 10.70 10*3/?L. The reference range was not used to interpret this result as normal/abnormal . RBC (test code = See_Comment L [Automated 789-8) message] The sy stem which generated this result transmitted reference range : 4.26 - 5.52 10*6/?L. The reference range was not used to interpret this result as normal/abnormal . HGB (test code = 5.7 g/dL 12.2-16.4 L 718-7) HCT (test code = 19.7 % 38.4-49.3 L 4544-3) MCV (test code = 69.1 fL 81.7-95.6 L 787-2) MCH (test code = 20.0 pg 26.1-32.7 L 785-6) MCHC (test code = 28.9 g/dL 31.2-35 L 786-4) RDW-SD (test code = 46.0 fL 38.5-51.6 99461-7) RDW-CV (test code = 18.4 % 12.1-15.4 H 788-0) PLT (test code = See_Comment [Automated 777-3) message] The sy stem which generated this result transmitted reference range : 150 - 328 10*3/ ?L. The reference r jesus was not used to interpret this result as normal/abnormal . MPV (test code = 9.3 fL 9.8-13 L 53099-2) NRBC/100 WBC (test See_Comment [Automat ed code = 1984108738) message] The system which generated this result transmitted reference range : 0.0 - 10.0 /100 WBCs. The refer ence range was not u sed to interpret th is result as normal/abnormal . NRBC x10^3 (test code <0.01 See_Comment [Auto mated = 2358127281) message] The s ystem which generated this result transmitted reference range : 10*3/?L. The reference range was not used to interpret this result as normal/abnormal . GRAN MAT (NEUT) % 69.9 % (test code = 770-8) IMM GRAN % (test code 0.50 % = 9686130897) LYMPH % (test code = 16.5 % 736-9) MONO % (test code = 11.6 % 5905-5) EOS % (test code = 1.3 % 713-8) BASO % (test code = 0.2 % 706-2) GRAN MAT x10^3(ANC) 6.59 10*3/uL 1.99-6.95 (test code = 4589484552) IMM GRAN x10^3 (test 0.05 10*3/uL 0-0.06 code = 4110730800) LYMPH x10^3 (test code 1.56 10*3/uL 1.09-3.23 = 731-0) MONO x10^3 (test code 1.09 10*3/uL 0.36-1.02 H = 742-7) EOS x10^3 (test code = 0.12 10*3/uL 0.06-0.53 711-2) BASO x10^3 (test code <0.03 0.01-0.09 = 704-7) Lab Interpretation Abnormal (test code = 75047-8) [facility] GLUCOSE (AUTOMATED)2019-06-12 17:13:00 Test Item Value Reference Range Interpretation Comments POCT GLU (test code = 8025293338) 145 mg/dL 70-110 H Lab Interpretation (test code = Abnormal 54805-1) [facility] GLUCOSE (AUTOMATED)2019-06-12 13:00:00 Test Item Value Reference Range Interpretation Comments POCT GLU (test code = 8196025836) 159 mg/dL 70-110 H Lab Interpretation (test code = Abnormal 72472-3) [facility] GLUCOSE (AUTOMATED)2019-06-12 11:03:00 Test Item Value Reference Range Interpretation Comments POCT GLU (test code = 7368372943) 174 mg/dL 70-110 H Lab Interpretation (test code = Abnormal 64357-7) [facility] (NA, K, CL, CO2, GLUCOSE, BUN, CREATININE, CA)2019-06-12 10:09:00 Test Item Value Reference Range Interpretation Comments NA (test code = 135 mmol/L 135-145 4959572508) K (test code = 4.6 mmol/L 3.5-5 9670034514) CL (test code = 99 mmol/L 98-108 7196313201) CO2 TOTAL (test code = 27 mmol/L 23-31 5410270210) AGAP (test code = 2-16 3009628465) BUN (test code = 21 mg/dL 7-23 7085395583) GLUCOSE (test code = 163 mg/dL 70-110 H 7424833662) CREATININE (test code = 1.16 mg/dL 0.6-1.25 2632996313) CALCIUM (test code = 8.9 mg/dL 8.6-10.6 3443426044) eGFR Calculation mL/min/1.73m2 (Non-) (test code = 1080653312) eGFR Calculation mL/min/1.73m2 () (test code = 9311671840) AKHIL (test code = AKHIL) Association of Glomerular Filtration Rate (GFR) and Staging of Kidney Disease* + --+ --+ ------+| GFR (mL/min/1.73 m2) ?| With Kidney Damage ?| ?Without Kidney Damage+ --------+ --------+ +| ?>90 ?| ?Stage one ?| ? Normal ?+ ---+ ---+ -------+| ?60-89 ?| ?Stage two ?| ? Decreased GFR ? + --+ --+ ------+| ?30-59 ?| ?Stage three ?| ? Stage three ? + --+ --+ ------+| ?15-29 ?| ?Stage four ? | ? Stage four ?+ ---+ ---+ -------+| ?<15 (or dialysis) ? ?| ?Stage five ? | ? Stage five ?+ ---+ ---+ -------+ *Each stage assumes the associated GFR level has been in effect for at least three months. ?Stages 1 to 5, with or without kidney disease, indicate chronic kidney disease. Notes: Determination of stages one and two (with eGFR >59mL/min/1.73 m2) requires estimation of kidney damage for at least three months as defined by structural or functional abnormalities of the kidney, manifested by either:Pathological abnormalities or Markers of kidney damage (including abnormalities in the composition of the blood or urine or abnormalities in imaging tests). Lab Interpretation Abnormal (test code = 41943-0) [facility] Test Item Value Reference Range Interpretation Comments MAGNESIUM (test code = 1368350321) 2.0 mg/dL 1.7-2.4 Lab Interpretation (test code = Normal 52043-1) [facility] WITH [id number] 09:46:00 Test Item Value Reference Range Interpretation Comments WBC (test code = See_Comment [Automated 6690-2) message] The sy stem which generated this result transmitted reference range : 4.20 - 10.70 10*3/?L. The reference range was not used to interpret this result as normal/abnormal . RBC (test code = See_Comment L [Automated 789-8) message] The sy stem which generated this result transmitted reference range : 4.26 - 5.52 10*6/?L. The reference range was not used to interpret this result as normal/abnormal . HGB (test code = 9.0 g/dL 12.2-16.4 L 718-7) HCT (test code = 29.0 % 38.4-49.3 L 4544-3) MCV (test code = 78.6 fL 81.7-95.6 L 787-2) MCH (test code = 24.4 pg 26.1-32.7 L 785-6) MCHC (test code = 31.0 g/dL 31.2-35 L 786-4) RDW-SD (test code = 46.5 fL 38.5-51.6 09966-1) RDW-CV (test code = 16.4 % 12.1-15.4 H 788-0) PLT (test code = See_Comment [Automated 777-3) message] The sy stem which generated this result transmitted reference range : 150 - 328 10*3/ ?L. The reference r jesus was not used to interpret this result as normal/abnormal . MPV (test code = 9.3 fL 9.8-13 L 45072-5) NRBC/100 WBC (test See_Comment [Automat ed code = 2157667957) message] The system which generated this result transmitted reference range : 0.0 - 10.0 /100 WBCs. The refer ence range was not u sed to interpret th is result as normal/abnormal . NRBC x10^3 (test code <0.01 See_Comment [Auto mated = 1994980920) message] The s ystem which generated this result transmitted reference range : 10*3/?L. The reference range was not used to interpret this result as normal/abnormal . GRAN MAT (NEUT) % 72.3 % (test code = 770-8) IMM GRAN % (test code 0.60 % = 9941172557) LYMPH % (test code = 14.0 % 736-9) MONO % (test code = 9.4 % 5905-5) EOS % (test code = 3.5 % 713-8) BASO % (test code = 0.2 % 706-2) GRAN MAT x10^3(ANC) 6.76 10*3/uL 1.99-6.95 (test code = 2420111085) IMM GRAN x10^3 (test 0.06 10*3/uL 0-0.06 code = 6031236034) LYMPH x10^3 (test code 1.31 10*3/uL 1.09-3.23 = 731-0) MONO x10^3 (test code 0.88 10*3/uL 0.36-1.02 = 742-7) EOS x10^3 (test code = 0.33 10*3/uL 0.06-0.53 711-2) BASO x10^3 (test code <0.03 0.01-0.09 = 704-7) Lab Interpretation Abnormal (test code = 34993-6) [facility]2019-[facility]-12 05:05:00 Test Item Value Reference Range Interpretation Comments POCT GLU (test code = 9436962459) 228 mg/dL 70-110 H Lab Interpretation (test code = Abnormal 68216-8) [facility] Peripheral [id number] 05:02:00 Test Item Value Reference Range Interpretation Comments Blood Culture-Aerobic No organisms No growth Previo us (test code = 38283-6) isolated prelim inary verified result was Culture In Progress on 06/07/2019 at 03 01 CDTPrevious preliminary verified result was No growth a t 24 hours on 06/08/2019 at 00 01 CDTPrevious preliminary verified result was No growth a t 48 hours on 06/09/2019 at 00 01 CDTPrevious preliminary verified result was No growth a t 72 hours on 06/10/2019 at 00 01 CDT Blood No organisms No growth Previous Culture-Anaerobic isolated preliminar y (test code = 09903-0) verifi ed result was Culture In Progress on 06/07/2019 at 03 01 CDTPrevious preliminary verified result was No growth a t 24 hours on 06/08/2019 at 00 01 CDTPrevious preliminary verified result was No growth a t 48 hours on 06/09/2019 at 00 01 CDTPrevious preliminary verified result was No growth a t 72 hours on 06/10/2019 at 00 01 CDT Lab Interpretation Normal (test code = 52788-3) [facility] Culture - Peripheral Vein # [id number] 05:02:00 Test Item Value Reference Range Interpretation Comments Blood Culture-Aerobic No organisms No growth Previo us (test code = 15711-3) isolated prelim inary verified result was Culture In Progress on 06/07/2019 at 03 01 CDTPrevious preliminary verified result was No growth a t 24 hours on 06/08/2019 at 00 01 CDTPrevious preliminary verified result was No growth a t 48 hours on 06/09/2019 at 00 01 CDTPrevious preliminary verified result was No growth a t 72 hours on 06/10/2019 at 00 01 CDT Blood No organisms No growth Previous Culture-Anaerobic isolated preliminar y (test code = 02391-1) verifi ed result was Culture In Progress on 06/07/2019 at 03 01 CDTPrevious preliminary verified result was No growth a t 24 hours on 06/08/2019 at 00 01 CDTPrevious preliminary verified result was No growth a t 48 hours on 06/09/2019 at 00 01 CDTPrevious preliminary verified result was No growth a t 72 hours on 06/10/2019 at 00 01 CDT Lab Interpretation Normal (test code = 70139-7) [facility] GLUCOSE (AUTOMATED)2019-06-11 21:59:00 Test Item Value Reference Range Interpretation Comments POCT GLU (test code = 9257152470) 197 mg/dL 70-110 H Lab Interpretation (test code = Abnormal 98309-0) [facility] GLUCOSE (AUTOMATED)2019-06-11 16:15:00 Test Item Value Reference Range Interpretation Comments POCT GLU (test code = 5325554572) 133 mg/dL 70-110 H Lab Interpretation (test code = Abnormal 69198-0) [facility] (NA, K, CL, CO2, GLUCOSE, BUN, CREATININE, CA)2019-06-11 10:32:00 Test Item Value Reference Range Interpretation Comments NA (test code = 134 mmol/L 135-145 L 7344035658) K (test code = 4.4 mmol/L 3.5-5 Slight 9518808868) hemolysis CL (test code = 102 mmol/L 98-108 7328778271) CO2 TOTAL (test code 25 mmol/L 23-31 = 0750607255) AGAP (test code = 2-16 2049232957) BUN (test code = 25 mg/dL 7-23 H Slight 8948493820) hemolysis GLUCOSE (test code = 143 mg/dL 70-110 H 6091803195) CREATININE (test code 1.01 mg/dL 0.6-1.25 = 4169067568) CALCIUM (test code = 8.3 mg/dL 8.6-10.6 L 2667059552) eGFR Calculation mL/min/1.73m2 (Non-) (test code = 9592774420) eGFR Calculation mL/min/1.73m2 () (test code = 0689780951) AKHIL (test code = AKHIL) Association of Glomerular Filtration Rate (GFR) and Staging of Kidney Disease* + -----+ --------+ +| GFR (mL/min/1.73 m2) ?| With Kidney Damage ?| ?Without Kidney Damage+ +------- +---- --+| ?>90 ?| ?Stage one ?| ? Normal ?+ ------+ ---------+--------- +| ?60-89 ?| ?Stage two ?| ? Decreased GFR ? + -----+ --------+ +| ?30-59 ?| ?Stage three ?| ? Stage three ? + -----+ --------+ +| ?15-29 ?| ?Stage four ? | ? Stage four ?+ ------+ ---------+--------- +| ?<15 (or dialysis) ? ?| ?Stage five ? | ? Stage five ?+ ------+ ---------+--------- + *Each stage assumes the associated GFR level has been in effect for at least three months. ?Stages 1 to 5, with or without kidney disease, indicate chronic kidney disease. Notes: Determination of stages one and two (with eGFR >59mL/min/1.73 m2) requires estimation of kidney damage for at least three months as defined by structural or functional abnormalities of the kidney, manifested by either:Pathological abnormalities or Markers of kidney damage (including abnormalities in the composition of the blood or urine or abnormalities in imaging tests). Lab Interpretation Abnormal (test code = 37796-7) [facility]2020-[facility]-20 10:32:00 Test Item Value Reference Range Interpretation Comments MAGNESIUM (test code = 9784881335) 2.0 mg/dL 1.7-2.4 Lab Interpretation (test code = Normal 64624-4) [facility] WITH [id number] 09:59:00 Test Item Value Reference Range Interpretation Comments WBC (test code = See_Comment [Automated 6690-2) message] The sy stem which generated this result transmitted reference range : 4.20 - 10.70 10*3/?L. The reference range was not used to interpret this result as normal/abnormal . RBC (test code = See_Comment L [Automated 789-8) message] The sy stem which generated this result transmitted reference range : 4.26 - 5.52 10*6/?L. The reference range was not used to interpret this result as normal/abnormal . HGB (test code = 8.7 g/dL 12.2-16.4 L 718-7) HCT (test code = 27.8 % 38.4-49.3 L 4544-3) MCV (test code = 77.9 fL 81.7-95.6 L 787-2) MCH (test code = 24.4 pg 26.1-32.7 L 785-6) MCHC (test code = 31.3 g/dL 31.2-35 786-4) RDW-SD (test code = 46.8 fL 38.5-51.6 25246-2) RDW-CV (test code = 16.4 % 12.1-15.4 H 788-0) PLT (test code = See_Comment [Automated 777-3) message] The sy stem which generated this result transmitted reference range : 150 - 328 10*3/ ?L. The reference r jesus was not used to interpret this result as normal/abnormal . MPV (test code = 10.2 fL 9.8-13 13986-4) NRBC/100 WBC (test See_Comment [Automat ed code = 4230339061) message] The system which generated this result transmitted reference range : 0.0 - 10.0 /100 WBCs. The refer ence range was not u sed to interpret th is result as normal/abnormal . NRBC x10^3 (test code <0.01 See_Comment [Auto mated = 7132681337) message] The s ystem which generated this result transmitted reference range : 10*3/?L. The reference range was not used to interpret this result as normal/abnormal . GRAN MAT (NEUT) % 62.1 % (test code = 770-8) IMM GRAN % (test code 0.40 % = 4161078961) LYMPH % (test code = 22.9 % 736-9) MONO % (test code = 10.7 % 5905-5) EOS % (test code = 3.6 % 713-8) BASO % (test code = 0.3 % 706-2) GRAN MAT x10^3(ANC) 4.82 10*3/uL 1.99-6.95 (test code = 6371878746) IMM GRAN x10^3 (test 0.03 10*3/uL 0-0.06 code = 1114381349) LYMPH x10^3 (test code 1.78 10*3/uL 1.09-3.23 = 731-0) MONO x10^3 (test code 0.83 10*3/uL 0.36-1.02 = 742-7) EOS x10^3 (test code = 0.28 10*3/uL 0.06-0.53 711-2) BASO x10^3 (test code <0.03 0.01-0.09 = 704-7) Lab Interpretation Abnormal (test code = 34117-2) [facility] 05:30:00 Test Item Value Reference Range Interpretation Comments POCT GLU (test code = 7845259124) 189 mg/dL 70-110 H Lab Interpretation (test code = Abnormal 61233-7) [facility] GLUCOSE (AUTOMATED)2019-06-11 05:27:00 Test Item Value Reference Range Interpretation Comments POCT GLU (test code = 5736373687) 196 mg/dL 70-110 H Lab Interpretation (test code = Abnormal 43026-4) [facility] GLUCOSE (AUTOMATED)2019-06-10 22:18:00 Test Item Value Reference Range Interpretation Comments POCT GLU (test code = 2300010854) 144 mg/dL 70-110 H Lab Interpretation (test code = Abnormal 70482-0) [facility] GLUCOSE (AUTOMATED)2019-06-10 18:29:00 Test Item Value Reference Range Interpretation Comments POCT GLU (test code = 2940709520) 231 mg/dL 70-110 H Lab Interpretation (test code = Abnormal 80597-1) [facility] METABOLIC PANEL (NA, K, CL, CO2, GLUCOSE, BUN, CREATININE, CA)2019-06-10 11:34:00 Test Item Value Reference Range Interpretation Comments NA (test code = 136 mmol/L 135-145 1718300408) K (test code = 4.2 mmol/L 3.5-5 9378872448) CL (test code = 101 mmol/L 98-108 3618629558) CO2 TOTAL (test code = 27 mmol/L 23-31 4746739921) AGAP (test code = 2-16 8827325737) BUN (test code = 20 mg/dL 7-23 6203033549) GLUCOSE (test code = 122 mg/dL 70-110 H 8670932156) CREATININE (test code = 1.08 mg/dL 0.6-1.25 2367878669) CALCIUM (test code = 8.9 mg/dL 8.6-10.6 3250055795) eGFR Calculation mL/min/1.73m2 (Non-) (test code = 2848860562) eGFR Calculation mL/min/1.73m2 () (test code = 9822666889) AKHIL (test code = AKHIL) Association of Glomerular Filtration Rate (GFR) and Staging of Kidney Disease* + --+ --+ ------+| GFR (mL/min/1.73 m2) ?| With Kidney Damage ?| ?Without Kidney Damage+ --------+ --------+ +| ?>90 ?| ?Stage one ?| ? Normal ?+ ---+ ---+ -------+| ?60-89 ?| ?Stage two ?| ? Decreased GFR ? + --+ --+ ------+| ?30-59 ?| ?Stage three ?| ? Stage three ? + --+ --+ ------+| ?15-29 ?| ?Stage four ? | ? Stage four ?+ ---+ ---+ -------+| ?<15 (or dialysis) ? ?| ?Stage five ? | ? Stage five ?+ ---+ ---+ -------+ *Each stage assumes the associated GFR level has been in effect for at least three months. ?Stages 1 to 5, with or without kidney disease, indicate chronic kidney disease. Notes: Determination of stages one and two (with eGFR >59mL/min/1.73 m2) requires estimation of kidney damage for at least three months as defined by structural or functional abnormalities of the kidney, manifested by either:Pathological abnormalities or Markers of kidney damage (including abnormalities in the composition of the blood or urine or abnormalities in imaging tests). Lab Interpretation Abnormal (test code = 03122-1) [facility] 11:34:00 Test Item Value Reference Range Interpretation Comments MAGNESIUM (test code = 7420546264) 1.9 mg/dL 1.7-2.4 Lab Interpretation (test code = Normal 29287-1) [facility] WITH [id number] 11:01:00 Test Item Value Reference Range Interpretation Comments WBC (test code = See_Comment [Automated 5082-2) message] The sy stem which generated this result transmitted reference range : 4.20 - 10.70 10*3/?L. The reference range was not used to interpret this result as normal/abnormal . RBC (test code = See_Comment L [Automated 849-2) message] The sy stem which generated this result transmitted reference range : 4.26 - 5.52 10*6/?L. The reference range was not used to interpret this result as normal/abnormal . HGB (test code = 9.6 g/dL 12.2-16.4 L 718-7) HCT (test code = 30.8 % 38.4-49.3 L 4544-3) MCV (test code = 77.4 fL 81.7-95.6 L 787-2) MCH (test code = 24.1 pg 26.1-32.7 L 785-6) MCHC (test code = 31.2 g/dL 31.2-35 786-4) RDW-SD (test code = 46.4 fL 38.5-51.6 43277-6) RDW-CV (test code = 16.5 % 12.1-15.4 H 788-0) PLT (test code = See_Comment [Automated 777-3) message] The sy stem which generated this result transmitted reference range : 150 - 328 10*3/ ?L. The reference r jesus was not used to interpret this result as normal/abnormal . MPV (test code = 9.5 fL 9.8-13 L 82513-7) NRBC/100 WBC (test See_Comment [Automat ed code = 9892244729) message] The system which generated this result transmitted reference range : 0.0 - 10.0 /100 WBCs. The refer ence range was not u sed to interpret th is result as normal/abnormal . NRBC x10^3 (test code <0.01 See_Comment [Auto mated = 8139517857) message] The s ystem which generated this result transmitted reference range : 10*3/?L. The reference range was not used to interpret this result as normal/abnormal . GRAN MAT (NEUT) % 69.5 % (test code = 770-8) IMM GRAN % (test code 0.20 % = 0184254417) LYMPH % (test code = 17.3 % 736-9) MONO % (test code = 9.7 % 5905-5) EOS % (test code = 3.1 % 713-8) BASO % (test code = 0.2 % 706-2) GRAN MAT x10^3(ANC) 5.85 10*3/uL 1.99-6.95 (test code = 5944999288) IMM GRAN x10^3 (test <0.03 0-0.06 code = 3719333315) LYMPH x10^3 (test code 1.46 10*3/uL 1.09-3.23 = 731-0) MONO x10^3 (test code 0.82 10*3/uL 0.36-1.02 = 742-7) EOS x10^3 (test code = 0.26 10*3/uL 0.06-0.53 711-2) BASO x10^3 (test code <0.03 0.01-0.09 = 704-7) Lab Interpretation Abnormal (test code = 10042-8) [facility] GLUCOSE (AUTOMATED)2019-06-10 10:50:00 Test Item Value Reference Range Interpretation Comments POCT GLU (test code = 7120314374) 140 mg/dL 70-110 H Lab Interpretation (test code = Abnormal 53933-9) [facility] GLUCOSE (AUTOMATED)2019-06-10 04:40:00 Test Item Value Reference Range Interpretation Comments POCT GLU (test code = 4588969671) 168 mg/dL 70-110 H Lab Interpretation (test code = Abnormal 34974-4) [facility] GLUCOSE (AUTOMATED)2019-06-10 01:19:00 Test Item Value Reference Range Interpretation Comments POCT GLU (test code = 8255034101) 214 mg/dL 70-110 H Lab Interpretation (test code = Abnormal 51839-2) [facility] (NON-REPORTABLE)2019-06-09 20:41:32 These images do not require a Radiology diagnostic report.[facility] METABOLIC PANEL (NA, K, CL, CO2, GLUCOSE, BUN, CREATININE, CA)2019-06-09 16:40:00 Test Item Value Reference Range Interpretation Comments NA (test code = 138 mmol/L 135-145 0115811993) K (test code = 3.9 mmol/L 3.5-5 1150819963) CL (test code = 102 mmol/L 98-108 7347782270) CO2 TOTAL (test code = 28 mmol/L 23-31 6222044674) AGAP (test code = 2-16 4540300071) BUN (test code = 23 mg/dL 7-23 9267052089) GLUCOSE (test code = 148 mg/dL 70-110 H 6588015042) CREATININE (test code = 1.11 mg/dL 0.6-1.25 0425413549) CALCIUM (test code = 9.0 mg/dL 8.6-10.6 1302765284) eGFR Calculation mL/min/1.73m2 (Non-) (test code = 0842002505) eGFR Calculation mL/min/1.73m2 () (test code = 2020807321) AKHIL (test code = AKHIL) Association of Glomerular Filtration Rate (GFR) and Staging of Kidney Disease* + --+ --+ ------+| GFR (mL/min/1.73 m2) ?| With Kidney Damage ?| ?Without Kidney Damage+ --------+ --------+ +| ?>90 ?| ?Stage one ?| ? Normal ?+ ---+ ---+ -------+| ?60-89 ?| ?Stage two ?| ? Decreased GFR ? + --+ --+ ------+| ?30-59 ?| ?Stage three ?| ? Stage three ? + --+ --+ ------+| ?15-29 ?| ?Stage four ? | ? Stage four ?+ ---+ ---+ -------+| ?<15 (or dialysis) ? ?| ?Stage five ? | ? Stage five ?+ ---+ ---+ -------+ *Each stage assumes the associated GFR level has been in effect for at least three months. ?Stages 1 to 5, with or without kidney disease, indicate chronic kidney disease. Notes: Determination of stages one and two (with eGFR >59mL/min/1.73 m2) requires estimation of kidney damage for at least three months as defined by structural or functional abnormalities of the kidney, manifested by either:Pathological abnormalities or Markers of kidney damage (including abnormalities in the composition of the blood or urine or abnormalities in imaging tests). Lab Interpretation Abnormal (test code = 33207-7) [facility] GLUCOSE (AUTOMATED)2019-06-09 10:46:00 Test Item Value Reference Range Interpretation Comments POCT GLU (test code = 8269034254) 187 mg/dL 70-110 H Lab Interpretation (test code = Abnormal 19853-6) [facility] GLUCOSE (AUTOMATED)2019-06-09 05:48:00 Test Item Value Reference Range Interpretation Comments POCT GLU (test code = 7265661564) 186 mg/dL 70-110 H Lab Interpretation (test code = Abnormal 94537-6) [facility] GLUCOSE (AUTOMATED)2019-06-08 22:55:00 Test Item Value Reference Range Interpretation Comments POCT GLU (test code = 1667741539) 208 mg/dL 70-110 H Lab Interpretation (test code = Abnormal 81352-3) [facility] GLUCOSE (AUTOMATED)2019-06-08 17:51:00 Test Item Value Reference Range Interpretation Comments POCT GLU (test code = 5326366474) 171 mg/dL 70-110 H Lab Interpretation (test code = Abnormal 96114-8) [facility] GLUCOSE (AUTOMATED)2019-06-08 11:54:00 Test Item Value Reference Range Interpretation Comments POCT GLU (test code = 2868879153) 131 mg/dL 70-110 H Lab Interpretation (test code = Abnormal 12647-7) [facility] GLUCOSE (AUTOMATED)2019-06-08 06:01:00 Test Item Value Reference Range Interpretation Comments POCT GLU (test code = 4663742792) 147 mg/dL 70-110 H Lab Interpretation (test code = Abnormal 83291-0) [facility] GLUCOSE (AUTOMATED)2019-06-07 22:52:00 Test Item Value Reference Range Interpretation Comments POCT GLU (test code = 1074448543) 286 mg/dL 70-110 H Lab Interpretation (test code = Abnormal 20060-5) [facility] TexasType and Screen - ONCE [id number] 21:42:40 Test Item Value Reference Range Interpretation Comments ABO & RH (test code A POSITIVE Performe d at [facility] = 20) Laboratory Serv [facility] [place] [address] s [address]Acyh Free: [phone] A No. [id number] IAT (test code = Negative Performed a t [facility] 1185) Laboratory Serv [facility] [address] [facility] s [address]Pjjc Free: [phone] A No. [id number] [facility] GLUCOSE (AUTOMATED)2019-06-07 17:12:00 Test Item Value Reference Range Interpretation Comments POCT GLU (test code = 4399554474) 103 mg/dL 70-110 Lab Interpretation (test code = Normal 83864-3) [facility] TexasLIPID PANEL (77437)(TOTAL CHOLESTEROL, TRIGLYCERIDES, HDL)2019-06-07 16:28:00 Test Item Value Reference Range Interpretation Comments CHOL (test code = 80 mg/dL 120-200 L 5510852631) HDL (test code = 46 mg/dL >40 2149013342) HDLC RATIO (test code = See_Comment [Au tomated message] 8820330934) The system 1001 Menus generated this result transmitted ref erence range: <=5.0. T he reference range was not used to int erpret this result as normal/abnormal . TRIG (test code = 55 mg/dL 30-170 1559842974) LDL CHOL (test code = 23 mg/dL See_Comment [Auto mated message] 58939-5) The system 1001 Men[employer] generated this result transmitted ref erence range: <=160. T he reference range was not used to int erpret this result as normal/abnormal . VLDL (test code = 11 mg/dL 5-60 8138980028) Lab Interpretation (test Abnormal code = 57691-4) [facility] TexasC-REACTIVE [id number] 15:46:00 Test Item Value Reference Range Interpretation Comments CRP (test code = 6593961237) 0.5 mg/dL <0.8 Lab Interpretation (test code = Normal 24722-9) [facility] Metabolic Panel (NA, K, CL, CO2, GLUCOSE, BUN, CREATININE, CA)2019-06-07 11:45:00 Test Item Value Reference Range Interpretation Comments NA (test code = 136 mmol/L 135-145 8081612798) K (test code = 4.7 mmol/L 3.5-5 7046846749) CL (test code = 102 mmol/L 98-108 5489037915) CO2 TOTAL (test code = 25 mmol/L 23-31 4504687124) AGAP (test code = 2-16 3846475018) BUN (test code = 30 mg/dL 7-23 H 7992329040) GLUCOSE (test code = 82 mg/dL 70-110 5670056275) CREATININE (test code = 1.31 mg/dL 0.6-1.25 H 3733909496) CALCIUM (test code = 9.0 mg/dL 8.6-10.6 7628799717) eGFR Calculation mL/min/1.73m2 (Non-) (test code = 2547746113) eGFR Calculation mL/min/1.73m2 () (test code = 7119875039) AKHIL (test code = AKHIL) Association of Glomerular Filtration Rate (GFR) and Staging of Kidney Disease* + --+ --+ ------+| GFR (mL/min/1.73 m2) ?| With Kidney Damage ?| ?Without Kidney Damage+ --------+ --------+ +| ?>90 ?| ?Stage one ?| ? Normal ?+ ---+ ---+ -------+| ?60-89 ?| ?Stage two ?| ? Decreased GFR ? + --+ --+ ------+| ?30-59 ?| ?Stage three ?| ? Stage three ? + --+ --+ ------+| ?15-29 ?| ?Stage four ? | ? Stage four ?+ ---+ ---+ -------+| ?<15 (or dialysis) ? ?| ?Stage five ? | ? Stage five ?+ ---+ ---+ -------+ *Each stage assumes the associated GFR level has been in effect for at least three months. ?Stages 1 to 5, with or without kidney disease, indicate chronic kidney disease. Notes: Determination of stages one and two (with eGFR >59mL/min/1.73 m2) requires estimation of kidney damage for at least three months as defined by structural or functional abnormalities of the kidney, manifested by either:Pathological abnormalities or Markers of kidney damage (including abnormalities in the composition of the blood or urine or abnormalities in imaging tests). Lab Interpretation Abnormal (test code = 07736-5) [facility] TexasMagnesium [id number] 11:45:00 Test Item Value Reference Range Interpretation Comments MAGNESIUM (test code = 9518273751) 1.9 mg/dL 1.7-2.4 Lab Interpretation (test code = Normal 01821-8) [facility] WITH [id number] 11:24:00 Test Item Value Reference Range Interpretation Comments WBC (test code = See_Comment [Automated 6690-2) message] The sy stem which generated this result transmitted reference range : 4.20 - 10.70 10*3/?L. The reference range was not used to interpret this result as normal/abnormal . RBC (test code = See_Comment L [Automated 789-8) message] The sy stem which generated this result transmitted reference range : 4.26 - 5.52 10*6/?L. The reference range was not used to interpret this result as normal/abnormal . HGB (test code = 9.0 g/dL 12.2-16.4 L 718-7) HCT (test code = 29.5 % 38.4-49.3 L 4544-3) MCV (test code = 78.5 fL 81.7-95.6 L 787-2) MCH (test code = 23.9 pg 26.1-32.7 L 785-6) MCHC (test code = 30.5 g/dL 31.2-35 L 786-4) RDW-SD (test code = 47.7 fL 38.5-51.6 18480-9) RDW-CV (test code = 16.7 % 12.1-15.4 H 788-0) PLT (test code = See_Comment [Automated 777-3) message] The sy stem which generated this result transmitted reference range : 150 - 328 10*3/ ?L. The reference r jesus was not used to interpret this result as normal/abnormal . MPV (test code = 9.2 fL 9.8-13 L 33195-5) NRBC/100 WBC (test See_Comment [Automat ed code = 2270242958) message] The system which generated this result transmitted reference range : 0.0 - 10.0 /100 WBCs. The refer ence range was not u sed to interpret th is result as normal/abnormal . NRBC x10^3 (test code <0.01 See_Comment [Auto mated = 0552291797) message] The s ystem which generated this result transmitted reference range : 10*3/?L. The reference range was not used to interpret this result as normal/abnormal . GRAN MAT (NEUT) % 71.8 % (test code = 770-8) IMM GRAN % (test code 0.30 % = 5760124807) LYMPH % (test code = 17.6 % 736-9) MONO % (test code = 8.5 % 5905-5) EOS % (test code = 1.5 % 713-8) BASO % (test code = 0.3 % 706-2) GRAN MAT x10^3(ANC) 6.54 10*3/uL 1.99-6.95 (test code = 4716260293) IMM GRAN x10^3 (test 0.03 10*3/uL 0-0.06 code = 4588607205) LYMPH x10^3 (test code 1.61 10*3/uL 1.09-3.23 = 731-0) MONO x10^3 (test code 0.78 10*3/uL 0.36-1.02 = 742-7) EOS x10^3 (test code = 0.14 10*3/uL 0.06-0.53 711-2) BASO x10^3 (test code 0.03 10*3/uL 0.01-0.09 = 704-7) Lab Interpretation Abnormal (test code = 93416-1) [facility] GLUCOSE (AUTOMATED)2019-06-07 10:58:00 Test Item Value Reference Range Interpretation Comments POCT GLU (test code = 7467216615) 87 mg/dL 70-110 Lab Interpretation (test code = Normal 94535-4) [facility] TexasGlycosylated Hemoglobin (A1C)2019-06-07 06:40:00 Test Item Value Reference Range Interpretation Comments HGB A1C (test code = 4548-4) 7.3 % 4-6 H Lab Interpretation (test code = Abnormal 47053-6) [facility] GLUCOSE (AUTOMATED)2019-06-07 06:22:00 Test Item Value Reference Range Interpretation Comments POCT GLU (test code = 5577731143) 126 mg/dL 70-110 H Lab Interpretation (test code = Abnormal 78786-3) [facility] TexasSEDIMENTATION [id number] 06:12:00 Test Item Value Reference Range Interpretation Comments ESR (test code = See_Comment H [Automated message] 1152364924) The system 1001 Men[employer] generated this result transmitted ref erence range: 0 - 10 m m/HR. The reference r jesus was not used to interpret this result as normal/abnor mal. Lab Interpretation (test Abnormal code = 67476-9) [facility] TexasSODIUM, URINE [id number] 05:51:00 Test Item Value Reference Range Interpretation Comments NA URINE (test code = 8217263947) 48 mmol/L [facility] TexasCREATININE, URINE [id number] 05:51:00 Test Item Value Reference Range Interpretation Comments CREAT U (test code = 2569809906) 50.6 mg/dL [facility] TexasUREA NITROGEN, URINE [id number] 05:51:00 Test Item Value Reference Range Interpretation Comments UREA N UR (test code = 2528184692) 429 mg/dL [facility] TexasUrinalysis2020-03-16 05:46:00 Test Item Value Reference Range Interpretation Comments APPEARANCE (test code = Clear Clear 1792265967) COLOR (test code = Straw Yellow A 8111070561) PH (test code = 4.8-8.0 4806308038) SP GRAVITY (test code = 1.003-1.030 2221487687) GLU U QUAL (test code = Normal Normal 9770627345) BLOOD (test code = Negative Negative 5880954470) KETONES (test code = Negative Negative 7699167370) PROTEIN (test code = Negative Negative 2887-8) UROBILIN (test code = Normal Normal 7444095564) BILIRUBIN (test code = Negative Negative 8295325562) NITRITE (test code = Negative Negative 1076352545) LEUK DEBI (test code = Negative Negative 0006097994) RBC/HPF (test code = See_Comment [Autom ated message] 7469127143) The system 1001 Men[employer] generated this result transmitted ref erence range: 0 - 3 HP F. The reference range was not used to int erpret this result as normal/abnormal . WBC/HPF (test code = <1 See_Comment [Autom ated message] 7721341176) The system 1001 Men[employer] generated this result transmitted ref erence range: 0 - 5 HP F. The reference range was not used to int erpret this result as normal/abnormal . BACTERIA (test code = Negative Negative 3943387561) SPERM (test code = <1 See_Comment [Automat ed message] 1150366283) The system 1001 Men[employer] generated this result transmitted ref erence range: <=1 HPF. The reference range was not used to int erpret this result as normal/abnormal . ASCORBIC ACID (test code Negative = 9575205954) Lab Interpretation (test Abnormal code = 99215-1) [facility] WITH [id number] 05:33:00 Test Item Value Reference Range Interpretation Comments WBC (test code = See_Comment [Automated 6690-2) message] The sy stem which generated this result transmitted reference range : 4.20 - 10.70 10*3/?L. The reference range was not used to interpret this result as normal/abnormal . RBC (test code = See_Comment L [Automated 789-8) message] The sy stem which generated this result transmitted reference range : 4.26 - 5.52 10*6/?L. The reference range was not used to interpret this result as normal/abnormal . HGB (test code = 8.0 g/dL 12.2-16.4 L 718-7) HCT (test code = 25.7 % 38.4-49.3 L 4544-3) MCV (test code = 77.9 fL 81.7-95.6 L 787-2) MCH (test code = 24.2 pg 26.1-32.7 L 785-6) MCHC (test code = 31.1 g/dL 31.2-35 L 786-4) RDW-SD (test code = 47.8 fL 38.5-51.6 44274-0) RDW-CV (test code = 16.7 % 12.1-15.4 H 788-0) PLT (test code = See_Comment [Automated 777-3) message] The sy stem which generated this result transmitted reference range : 150 - 328 10*3/ ?L. The reference r jesus was not used to interpret this result as normal/abnormal . MPV (test code = 10.0 fL 9.8-13 34106-8) NRBC/100 WBC (test See_Comment [Automat ed code = 3390684952) message] The system which generated this result transmitted reference range : 0.0 - 10.0 /100 WBCs. The refer ence range was not u sed to interpret th is result as normal/abnormal . NRBC x10^3 (test code <0.01 See_Comment [Auto mated = 4024530836) message] The s ystem which generated this result transmitted reference range : 10*3/?L. The reference range was not used to interpret this result as normal/abnormal . GRAN MAT (NEUT) % 71.8 % (test code = 770-8) IMM GRAN % (test code 0.30 % = 3204150981) LYMPH % (test code = 18.5 % 736-9) MONO % (test code = 7.4 % 5905-5) EOS % (test code = 1.8 % 713-8) BASO % (test code = 0.2 % 706-2) GRAN MAT x10^3(ANC) 4.34 10*3/uL 1.99-6.95 (test code = 6733957325) IMM GRAN x10^3 (test <0.03 0-0.06 code = 0813999510) LYMPH x10^3 (test code 1.12 10*3/uL 1.09-3.23 = 731-0) MONO x10^3 (test code 0.45 10*3/uL 0.36-1.02 = 742-7) EOS x10^3 (test code = 0.11 10*3/uL 0.06-0.53 711-2) BASO x10^3 (test code <0.03 0.01-0.09 = 704-7) Lab Interpretation Abnormal (test code = 94762-3) [facility] METABOLIC PANEL (NA, K, CL, CO2, GLUCOSE, BUN, CREATININE, CA)2019-06-07 04:52:00 Test Item Value Reference Range Interpretation Comments NA (test code = 135 mmol/L 135-145 7999648736) K (test code = 5.7 mmol/L 3.5-5 H 2494307413) CL (test code = 104 mmol/L 98-108 2225696755) CO2 TOTAL (test code = 23 mmol/L 23-31 8507754272) AGAP (test code = 2-16 2679429775) BUN (test code = 33 mg/dL 7-23 H 4241511139) GLUCOSE (test code = 169 mg/dL 70-110 H 1116855754) CREATININE (test code = 1.41 mg/dL 0.6-1.25 H 6222077391) CALCIUM (test code = 8.3 mg/dL 8.6-10.6 L 8123785584) eGFR Calculation mL/min/1.73m2 (Non-) (test code = 6117562804) eGFR Calculation mL/min/1.73m2 () (test code = 5778460339) AKHIL (test code = AKHIL) Association of Glomerular Filtration Rate (GFR) and Staging of Kidney Disease* + --+ --+ ------+| GFR (mL/min/1.73 m2) ?| With Kidney Damage ?| ?Without Kidney Damage+ --------+ --------+ +| ?>90 ?| ?Stage one ?| ? Normal ?+ ---+ ---+ -------+| ?60-89 ?| ?Stage two ?| ? Decreased GFR ? + --+ --+ ------+| ?30-59 ?| ?Stage three ?| ? Stage three ? + --+ --+ ------+| ?15-29 ?| ?Stage four ? | ? Stage four ?+ ---+ ---+ -------+| ?<15 (or dialysis) ? ?| ?Stage five ? | ? Stage five ?+ ---+ ---+ -------+ *Each stage assumes the associated GFR level has been in effect for at least three months. ?Stages 1 to 5, with or without kidney disease, indicate chronic kidney disease. Notes: Determination of stages one and two (with eGFR >59mL/min/1.73 m2) requires estimation of kidney damage for at least three months as defined by structural or functional abnormalities of the kidney, manifested by either:Pathological abnormalities or Markers of kidney damage (including abnormalities in the composition of the blood or urine or abnormalities in imaging tests). Lab Interpretation Abnormal (test code = 22053-6) [facility] TexasXR FOOT 3+ VW [id number] 22:25:35 1. No acute osseous abnormalities.2. If there is high clinical concern for osteomyelitis MRI is recommended. RL: 501 AF: [id number] End of report ORDERING PHYSICIAN: ?KIRA LEIJA TECHNIQUE: Right foot 3 views HISTORY: Osteomyelitis of the seco nd digit COMPARISON: None FINDINGS:There are no fractures or dislocations. There are no cortical erosions to radiographically suspect osteomyelitis. There are moderate arthritic changes. [facility], Radiant Results Inft User - 06/06/2019 5:26 PM CDTORDERING PHYSICIAN: KIRA LEIJATECHNIQUE: Right foot 3 viewsHISTORY: Osteomyelitis of the second digitCOMPARISON: NoneFINDINGS:There are no fractures or dislocations.There are no cortical erosions to radiographically suspect osteomyelitis.There are moderate arthritic changes.IMPRESSION1. No acute osseous abnormalities.2. If there is high clinical concern for osteomyelitis MRI is recommended.RL: [id number]: [id number] of report UnJoint [facility] and [facility] ResourcesPOTASSIUM SERUM 2019-06-06 20:53:00 Test Item Value Reference Range Interpretation Comments K (test code = 7656385995) 6.1 mmol/L 3.5-5 HH Lab Interpretation (test code = Abnormal 36651-3) [facility] TexasProthrombin Time (PT) / [id number] 19:38:00 Test Item Value Reference Range Interpretation Comments PROTIME PATIENT (test See_Comment [Auto mated message] code = 5964-2) The system wh ich generated this result transmitted ref erence range: 12.0 - 1 4.7 Seconds. The re ference range was not u sed to interpret this result as normal/abnor mal. INR (test code = 6301-6) Nor mal INR <1.1; Warfarin Therap eutic range 2.0 to 3. 0 or 2.5 to 3.5, dep ending upon the indica tions. Lab Interpretation (test Normal code = 33650-2) [facility] TexasaPTT2020-03-15 19:37:00 Test Item Value Reference Range Interpretation Comments APTT Patient (test See_Comment [Automat ed code = 3173-2) message] The system which generated this result transmitted reference range : 23 - 38 Seconds . The reference range was not used to interpr et this result as normal/abnormal . AKHIL (test code = AKHIL) The [facility] patient population mean normal value for aPTT is 30 seconds. Lab Interpretation Normal (test code = 14643-6) [facility] Metabolic Panel (NA, K, CL, CO2, GLUCOSE, BUN, CREATININE, CA)2019-06-06 19:28:00 Test Item Value Reference Range Interpretation Comments NA (test code = 134 mmol/L 135-145 L 4408849315) K (test code = 6.0 mmol/L 3.5-5 H 0085081764) CL (test code = 100 mmol/L 98-108 3627266309) CO2 TOTAL (test code = 22 mmol/L 23-31 L 8954121435) AGAP (test code = 2-16 6122041331) BUN (test code = 39 mg/dL 7-23 H 0225435583) GLUCOSE (test code = 165 mg/dL 70-110 H 7961013209) CREATININE (test code = 1.77 mg/dL 0.6-1.25 H 3413452274) CALCIUM (test code = 8.7 mg/dL 8.6-10.6 3952318999) eGFR Calculation mL/min/1.73m2 (Non-) (test code = 6122633490) eGFR Calculation mL/min/1.73m2 () (test code = 8726305964) AKHIL (test code = AKHIL) Association of Glomerular Filtration Rate (GFR) and Staging of Kidney Disease* + --+ --+ ------+| GFR (mL/min/1.73 m2) ?| With Kidney Damage ?| ?Without Kidney Damage+ --------+ --------+ +| ?>90 ?| ?Stage one ?| ? Normal ?+ ---+ ---+ -------+| ?60-89 ?| ?Stage two ?| ? Decreased GFR ? + --+ --+ ------+| ?30-59 ?| ?Stage three ?| ? Stage three ? + --+ --+ ------+| ?15-29 ?| ?Stage four ? | ? Stage four ?+ ---+ ---+ -------+| ?<15 (or dialysis) ? ?| ?Stage five ? | ? Stage five ?+ ---+ ---+ -------+ *Each stage assumes the associated GFR level has been in effect for at least three months. ?Stages 1 to 5, with or without kidney disease, indicate chronic kidney disease. Notes: Determination of stages one and two (with eGFR >59mL/min/1.73 m2) requires estimation of kidney damage for at least three months as defined by structural or functional abnormalities of the kidney, manifested by either:Pathological abnormalities or Markers of kidney damage (including abnormalities in the composition of the blood or urine or abnormalities in imaging tests). Lab Interpretation Abnormal (test code = 38911-5) [facility] (ALB, T.PRO, BILI T, BU/BC, ALT, AST, ALK PHOS)2019-06-06 19:28:00 Test Item Value Reference Range Interpretation Comments TOTAL BILI (test code = 7191553417) 0.3 mg/dL 0.1-1.1 BILI UNCON (test code = 2991780124) 0.1 mg/dL 0.1-1.1 BILI CONJ (test code = 9339309340) 0.0 mg/dL 0-0.3 T PROTEIN (test code = 8479337521) 7.0 g/dL 6.3-8.2 ALBUMIN (test code = 5528760951) 4.0 g/dL 3.5-5 ALK PHOS (test code = 6868760120) 84 U/L 34-122 ALTv (test code = 1742-6) 20 U/L 5-50 AST(SGOT) (test code = 2306142584) 25 U/L 13-40 Lab Interpretation (test code = Normal 96652-4) [facility] WITH [id number] 19:10:00 Test Item Value Reference Range Interpretation Comments WBC (test code = See_Comment [Automated 8243-2) message] The sy stem which generated this result transmitted reference range : 4.20 - 10.70 10*3/?L. The reference range was not used to interpret this result as normal/abnormal . RBC (test code = See_Comment L [Automated 508-8) message] The sy stem which generated this result transmitted reference range : 4.26 - 5.52 10*6/?L. The reference range was not used to interpret this result as normal/abnormal . HGB (test code = 8.6 g/dL 12.2-16.4 L 718-7) HCT (test code = 28.0 % 38.4-49.3 L 4544-3) MCV (test code = 80.0 fL 81.7-95.6 L 787-2) MCH (test code = 24.6 pg 26.1-32.7 L 785-6) MCHC (test code = 30.7 g/dL 31.2-35 L 786-4) RDW-SD (test code = 48.9 fL 38.5-51.6 74815-9) RDW-CV (test code = 16.8 % 12.1-15.4 H 788-0) PLT (test code = See_Comment [Automated 777-3) message] The sy stem which generated this result transmitted reference range : 150 - 328 10*3/ ?L. The reference r jesus was not used to interpret this result as normal/abnormal . MPV (test code = 9.7 fL 9.8-13 L 16480-8) NRBC/100 WBC (test See_Comment [Automat ed code = 2058970033) message] The system which generated this result transmitted reference range : 0.0 - 10.0 /100 WBCs. The refer ence range was not u sed to interpret th is result as normal/abnormal . NRBC x10^3 (test code <0.01 See_Comment [Auto mated = 5652486449) message] The s ystem which generated this result transmitted reference range : 10*3/?L. The reference range was not used to interpret this result as normal/abnormal . GRAN MAT (NEUT) % 78.5 % (test code = 770-8) IMM GRAN % (test code 0.50 % = 9631654085) LYMPH % (test code = 12.9 % 736-9) MONO % (test code = 6.6 % 5905-5) EOS % (test code = 1.1 % 713-8) BASO % (test code = 0.4 % 706-2) GRAN MAT x10^3(ANC) 5.72 10*3/uL 1.99-6.95 (test code = 2314254588) IMM GRAN x10^3 (test 0.04 10*3/uL 0-0.06 code = 5897931586) LYMPH x10^3 (test code 0.94 10*3/uL 1.09-3.23 L = 731-0) MONO x10^3 (test code 0.48 10*3/uL 0.36-1.02 = 742-7) EOS x10^3 (test code = 0.08 10*3/uL 0.06-0.53 711-2) BASO x10^3 (test code 0.03 10*3/uL 0.01-0.09 = 704-7) Lab Interpretation Abnormal (test code = 51864-5) [facility]2019-06-06 18:38:00 Test Item Value Reference Range Interpretation Comments POCT GLU (test code = 1439000990) 184 mg/dL 70-110 H Lab Interpretation (test code = Abnormal 90696-1) [facility]"
[2022-12-26 15:34] VITALS: BMI 25.8
[2022-12-26] MEDS ORDERED: VANCOMYCIN 1.5 GM in NA CHLORIDE 0.9% 500 ML IVPB ONE (16:00)
[2022-12-26] MEDS: ACETAMINOPHEN 500 MG TAB PO PRN (16:09)
[2022-12-26] MEDS ORDERED: INFLUENZA VACCINE (for 6+ mo) 0.5 ML DOSE IMVAC ONE (17:00)
[2022-12-26 18:00] LABS: Absolute Lymphocytes (CBC) 1.4 K/uL (0.7-4.9); Hematocrit 37.3 % (39.6-49.0); Lymphocytes % 21.4 % (15.3-44.8); MCV 78.6 fL (80-100); MPV 8.3 fL (7.6-11.3); Platelets 187 thou/uL (152-406); RBC Red Blood Cell Count 4.75 M/uL (4.33-5.43)
[2022-12-26 18:04] LABS: Potassium 4.5 mEq/L (3.5-5.1)
--- NOTE | 2022-12-26 18:47 | RAD REPORT ---
EXAM DESCRIPTION: RAD - Chest Single View - 12/26/2022 5:58 pm CLINICAL HISTORY: clearance for OR Chest pain. COMPARISON: Chest Pa And Lat (2 Views) dated 06/29/2020; ABDOMEN ACUTE SERIES dated 11/02/2010 FINDINGS: Portable technique limits examination quality. Mild interstitial pulmonary edema. The heart is moderately enlarged in size. Changes of a prior CABG noted. IMPRESSION: Mild CHF.
[2022-12-26] MEDS: METOPROLOL TAR 25 MG TAB PO SCH (21:21)
[2022-12-27] MEDS: MORPHINE 2 MG/ML SYR IV PRN (04:47)
[2022-12-27] MEDS: GABAPENTIN 100 MG CAP PO SCH (07:55)
[2022-12-27] MEDS: METOPROLOL TAR 25 MG TAB PO SCH ×2 (07:55→20:49)
[2022-12-27] MEDS: LOSARTAN POTASSIUM 50 MG TABLET PO SCH (07:56)
[2022-12-27] MEDS: ONDANSETRON 4 MG/2 ML VIAL IV PRN (07:59)
[2022-12-27] MEDS: CLOPIDOGREL 75 MG TABLET PO SCH (09:00)
--- NOTE | 2022-12-27 09:12 | P.CNS ---
Date of Consult: 12/27/22 Reason for consult: Nonhealing wound left lateral ankle History of present illness: Patient is a 87-year-old gentleman with a nonhealing wound in the left lateral ankle for several months. 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 Patient denies any purulent discharge, fever or chills, chest pain, sore throat, runny nose or cough. Review of systems: Otherwise unremarkable Past medical history: Diabetes hypertension peripheral vascular disease Past surgical history: Right below-knee amputation Allergies: None Social history: Patient does not smoke or drink alcohol Family history: Noncontributory Vital signs: Stable, afebrile Physical exam: Awake, alert and oriented [id number] Head and neck exam: No masses Chest: Clear Heart: S1-S2 Abdomen: Soft Extremity: Left lower extremity with diminished dorsalis pedis and posterior tibial pulses. On the left lateral malleolus there is a 1.5 x 2 cm black necrotic eschar with surrounding erythema and edema and warmth Neuro: Nonfocal Diagnostic data: MRI suggestive of osteomyelitis, laboratory data reviewed Assessment: Nonhealing wound left lateral ankle with osteomyelitis Plan/recommendation: N.p.o., IV fluids, IV antibiotics. To the OR for debridement of left lateral ankle. Patient via cue worker understands risk, benefits, alternatives and agrees to procedure. Plan of care discussed with Dr. Salgado. Patient will need PICC line and 6 weeks of IV antibiotics and wound care. CC: Dr. Salgado's office
[2022-12-27] MEDS ORDERED: LIDOCAINE 2% MPF 5 ML VIAL ONE (09:20)
[2022-12-27] MEDS ORDERED: propofoL 200 MG/20 ML VIAL IV ONE (09:20)
[2022-12-27] MEDS ORDERED: FENTANYL CITR 100 MCG/2 ML ONE (09:20)
[2022-12-27] MEDS ORDERED: ONDANSETRON 4 MG/2 ML VIAL ONE (09:23)
[2022-12-27] MEDS ORDERED: COLLAGENASE 30 GM OINTMENT TOP ONE (09:28)
[2022-12-27] MEDS ORDERED: LIDOCAINE HCL/EPINEPHRINE 20 ML MDV ONE (09:28)
[2022-12-27] MEDS ORDERED: NA CHLORIDE 0.9% 1,000 ML ONE (09:35)
[2022-12-27] MEDS: CEFAZOLIN SODIUM 1 GM/VIAL ONE ×2 (10:05→10:56)
[2022-12-27] MEDS ORDERED: FAMOTIDINE 20 MG/2 ML VIAL IV ONE (10:24)
[2022-12-27] MEDS ORDERED: NA CIT/CITRIC AC 30 ML ORAL UDC ONE (10:24)
--- NOTE | 2022-12-27 10:53 | P.OP ---
Date of Service: 12/27/22 Preop diagnosis: Left lateral ankle wound with osteomyelitis Postop diagnosis: Same Procedure performed: Excisional debridement of left lateral ankle wound 1 x 1 cm to subcutaneous tissue Surgeon: Elia Gonzales MD Brim Edge Trimmer: Denisse MCALLISTER Estimated blood loss: Minimal Specimen: Debridement tissue for culture and sensitivity Findings: As above Anesthesia: MAC Complications: None Drains: None Fluids and blood products: Nonapplicable Disposition: Recovery room Operative note: Patient brought to the OR and placed in supine position. MAC anesthesia begun. Marcaine 0.5% infiltrated locally. Curette used to debride a 1 x 1 cm necrotic wound down through the subcutaneous tissue to the cortex of the bowel. Debridement tissue sent for culture. Bleeding controlled with pressure. Santyl dressing applied. Sterile dressing applied and patient awakened. Patient taken recovery room in good general condition. CC: Dr. Salgado's office
--- NOTE | 2022-12-27 12:20 | EKG ---
Test Date: 2022-12-27 Test Time: 04:11:03 Safety Specialist: LAYLA MEASUREMENT RESULTS: Intervals: Rate: 53 PA: 306 QRSD: 78 QT: 450 QTc: 422 [place]: P: 90 PA: 306 QRS: 81 T: 194 INTERPRETIVE STATEMENTS: Sinus bradycardia with sinus arrhythmia with 1st degree AV block Nonspecific ST and T wave abnormality Abnormal ECG No previous ECG available for comparison Electronically Signed On 12-27-22 12:19:39 CDT by Rafael Irving
[2022-12-27] MEDS: VANCOMYCIN 1.25 GM in NA CHLORIDE 0.9% 250 ML IVPB SCH (16:07)
[2022-12-27] MEDS: Mupirocin NASAL 2 APPL/1 GM TUBE NAS SCH (20:49)
--- NOTE | 2022-12-27 22:02 | PN ---
Date of Progress Note: 12/27/2022 Subjective: The patient was seen postoperatively. He states his leg is still numb. He therefore rosales s no pain. His vital signs are stable. He seem to tolerate the procedure well. Debridement was don e. Cultures were taken. We will order the PICC line and some physical therapy. Final Diagnosis: . HR/MODL Voice ID: [id number] Report ID: [id number]
--- NOTE | 2022-12-27 22:02 | HP ---
Date of Admission: 12/26/2022 Entrance Complaint: Painful left ankle and leg. History Of Present Illness: The patient has had the above-outlined symptoms for the past few months. He has been seen at [facility] with various treatments. However, attempts at debridement of the ulcer in the lateral malleolar area has been somewhat unsuccessful due to the pain involved. He has been on various antibiotics and creams. When seen in the last couple of weeks, it was felt that it was not any better. He would have to undergo surgical debridement under some form of anesthesia. In the meantime, an MRI was quite suspicious for osteo of the area. He also developed some cellulit is and he was therefore admitted for further treatment. He was admitted with the probability of havi ng a PICC line and the surgical debridement. Past History: Patient has had a similar problem on the right lower leg, which required a BKA. He rosales d coronary artery bypass a number of years ago, an aortofemoral bypass as well. Actually has done qu ite well until this last few months with the episode of the ulceration on the medial malleolar area. The patient has a history of diabetes, fairly well controlled on oral medication and history of, as mentioned, coronary artery disease as well. Social History: Nonsmoker, nondrinker. Family History: Noncontributory. Physical Examination: General: Patient is an elderly male in varying degrees of distress with stable vital signs. Head and neck: Normocephalic. Pupils equal to light and accommodation. Fundi negative. Trachea mi dline. Thyroid not palpable ENT negative. Chest: Clear to P and A. Cardiovascular: PMI in midclavicular line. Heart: Sounds normal. Peripheral pulses present and equal bilaterally. Abdomen: No organomegaly. Bowel sounds present. Extremities: The pulses were evaluated on the left lower leg only as he has this BKA on the right. Extremities as mentioned above, BKA on the right. He did have some stump ulcerations a number of mon ths ago. However, these have healed. Rectal: Deferred. Impression: Osteomyelitis of the left lower leg, cellulitis of the left lower leg, post below-knee a mputation; coronary artery disease by history; fyb-znczerl-jmohvplkt diabetes mellitus, good control; hypertension, good control. Plan: The patient will be admitted, placed on IV antibiotics, vancomycin. If tolerated, PICC line w ill be inserted for 6 weeks of treatment. Consultation will be obtained with a surgeon for evaluatio n of debridement under anesthesia. Continue his home medications as well. HR/MODL Voice ID: [id number]
[2022-12-28 04:02] LABS: Absolute Lymphocytes (CBC) 1.4 K/uL (0.7-4.9); Hematocrit 35.6 % (39.6-49.0); Lymphocytes % 17.8 % (15.3-44.8); MCV 78.6 fL (80-100); MPV 8.3 fL (7.6-11.3); Platelets 179 thou/uL (152-406); RBC Red Blood Cell Count 4.53 M/uL (4.33-5.43)
[2022-12-28 04:20] LABS: Potassium 4.4 mEq/L (3.5-5.1)
[2022-12-28] MEDS: HYDROCODONE/APAP 5/325 MG TAB PO PRN ×2 (05:26→11:21)
[2022-12-28] MEDS: Mupirocin NASAL 2 APPL/1 GM TUBE NAS SCH ×2 (08:11→21:20)
[2022-12-28] MEDS: GABAPENTIN 100 MG CAP PO SCH (08:12)
[2022-12-28] MEDS: LOSARTAN POTASSIUM 50 MG TABLET PO SCH (08:13)
[2022-12-28] MEDS: CLOPIDOGREL 75 MG TABLET PO SCH (08:13)
[2022-12-28] MEDS: METOPROLOL TAR 25 MG TAB PO SCH ×2 (08:13→17:49)
[2022-12-28] MEDS: ENOXAPARIN 30 MG/0.3 ML SQ SCH (11:21)
--- NOTE | 2022-12-28 13:14 | PN ---
Date of Progress Note: 12/28/2022 Subjective: Patient is awake and alert. No complaint. Minimal pain in the left lateral ankle. No purulent discharge. Objective: Vital Signs: Stable, afebrile. Cultures pending. Wounds: Examination of the wound reveals minimal fibrin, minimal erythema surrounding it. No purule nt discharge. There is a little better tenderness, but again no purulence. Assessment: Status post excision and debridement of infected left lateral ankle wound. Recommendations: Wound care as ordered. IV antibiotics. We will adjust the antibiotics after we ge t culture report. Discharge planning for 6 weeks of IV antibiotics for the osteomyelitis. The patie nt can follow up with us in the [facility] upon discharge. /MODL Voice ID: [id number] Report ID: [id number]
[2022-12-28] MEDS: VANCOMYCIN 1.25 GM in NA CHLORIDE 0.9% 250 ML IVPB SCH (16:45)
[2022-12-28] MEDS: ACETAMINOPHEN 500 MG TAB PO PRN (16:49)
--- NOTE | 2022-12-28 19:51 | RAD REPORT ---
EXAM DESCRIPTION: XR Chest, 1 View CLINICAL HISTORY: The patient is 87 years old and is Male; S/P PICC insertion TECHNIQUE: Frontal view of the chest. COMPARISON: No relevant prior studies available. FINDINGS: Lungs: Prominent interstitial markings. No consolidation. Pleural space: Unremarkable. No pneumothorax. Heart: Unremarkable. Mediastinum: Postsurgical changes in the mediastinum. Bones/joints: No acute findings. Tubes, lines and devices: Left PICC with tip in the SVC. Upper abdomen: Elevation of the left hemidiaphragm. IMPRESSION: 1. Left PICC with tip in the SVC. 2. Prominent interstitial markings. No consolidation. Electronically signed by: Oliver Bowen MD 12/28/2022 12:48 AM CDT Due to temporary technical issues with the PACS/Fluency reporting system, reports are being signed by the in house radiologists without review as a courtesy to insure prompt reporting. The interpreting radiologist is fully responsible for the content of the report.
[2022-12-28] MEDS ORDERED: cloNIDine HCL 0.1 MG TAB PO ONE (20:57)
[2022-12-28] MEDS: ONDANSETRON 4 MG/2 ML VIAL IV PRN (23:29)
[2022-12-29] MEDS: MORPHINE 2 MG/ML SYR IV PRN (08:21)
[2022-12-29] MEDS: METOPROLOL TAR 25 MG TAB PO SCH ×2 (08:24→20:50)
[2022-12-29] MEDS: LOSARTAN POTASSIUM 50 MG TABLET PO SCH (08:24)
[2022-12-29] MEDS: ENOXAPARIN 30 MG/0.3 ML SQ SCH (08:24)
[2022-12-29] MEDS: Mupirocin NASAL 2 APPL/1 GM TUBE NAS SCH ×2 (08:25→20:50)
[2022-12-29] MEDS: CLOPIDOGREL 75 MG TABLET PO SCH (08:25)
[2022-12-29] MEDS: GABAPENTIN 100 MG CAP PO SCH (08:25)
[2022-12-29] MEDS: HYDROCODONE/APAP 7.5/325 MG TAB PO SCH ×3 (10:51→23:00)
--- NOTE | 2022-12-29 11:12 | PN ---
Date of Progress Note: 12/28/2022 Subjective: The patient is 1 day postop, seems to be doing fine. Vital signs other than some elevat ion in systolic blood pressure, have been stable. He has not been mobilized criteria. We will also add Lovenox to his regimen. He is on Plavix for CAD and PVD, low dose. We will try to se t up his home IV vancomycin for approximately 6 weeks once his dosage is stabilized. HR/MODL Voice ID: [id number] Report ID: [id number]
--- NOTE | 2022-12-29 12:18 | PN ---
Date of Progress Note: 12/29/2022 Patient seems to be in quite a bit of pain when seen today and suspect that is got a lot to do with h is blood pressure. Through translation, he states he has been having difficulty controlling his bloo d pressure at home, I suspect again that was his pain. We will therefore increase his hydrocodone wh ich he says is better than the morphine to 7.5 scheduled q.6, see how that controls both the pain and his blood pressure. He has been mobilized and it is possible he could be discharged tomorrow with t he appropriate vancomycin dosage. His cultures to date have been negative. HR/MODL Voice ID: [id number] Report ID: [id number]
[2022-12-29] MEDS: VANCOMYCIN 1.5 GM in NA CHLORIDE 0.9% 500 ML IVPB SCH (16:06)
[2022-12-30] MEDS: HYDROCODONE/APAP 7.5/325 MG TAB PO SCH ×5 (02:56→20:20)
[2022-12-30 03:16] LABS: Absolute Lymphocytes (CBC) 1.7 K/uL (0.7-4.9); Hematocrit 34.8 % (39.6-49.0); Lymphocytes % 19.1 % (15.3-44.8); MCV 77.8 fL (80-100); MPV 8.2 fL (7.6-11.3); Platelets 169 thou/uL (152-406); RBC Red Blood Cell Count 4.48 M/uL (4.33-5.43)
[2022-12-30 03:45] LABS: Potassium 4.2 mEq/L (3.5-5.1)
[2022-12-30] MEDS: METOPROLOL TAR 25 MG TAB PO SCH ×2 (08:29→20:19)
[2022-12-30] MEDS: ENOXAPARIN 30 MG/0.3 ML SQ SCH (08:29)
[2022-12-30] MEDS: Mupirocin NASAL 2 APPL/1 GM TUBE NAS SCH ×2 (08:29→20:19)
[2022-12-30] MEDS: LOSARTAN POTASSIUM 50 MG TABLET PO SCH (08:29)
[2022-12-30] MEDS: GABAPENTIN 100 MG CAP PO SCH (08:30)
[2022-12-30] MEDS: CLOPIDOGREL 75 MG TABLET PO SCH (08:30)
[2022-12-30] MEDS: BISACODYL E.C. 5 MG TAB PO PRN (16:37)
[2022-12-30] MEDS: VANCOMYCIN 1.5 GM in NA CHLORIDE 0.9% 500 ML IVPB SCH (16:38)
--- NOTE | 2022-12-30 18:54 | PN ---
Date of Progress Note: 12/30/2022 The patient continues to do quite well. His blood pressure was stabilized since increasing the analg esics and . His blood work is stable, other than slight elevations of sugar. The patient is never needed insulin at home. However, we will try usual medication upon discharge and if he does not work, we will obviously change his medication. Plan will be to give him his vancomycin 1.5 at 4 today and have delivery of the medication by tomorrow, so probably discharged in a.m. HR/MODL Voice ID: [id number] Report ID: [id number]
[2022-12-31] MEDS: HYDROCODONE/APAP 7.5/325 MG TAB PO SCH ×4 (04:48→22:13)
[2022-12-31] MEDS ORDERED: VANCOMYCIN 1.5 GM in NA CHLORIDE 0.9% 500 ML IVPB SCH (10:00)
[2022-12-31] MEDS: ENOXAPARIN 30 MG/0.3 ML SQ SCH (10:01)
[2022-12-31] MEDS: CLOPIDOGREL 75 MG TABLET PO SCH (10:02)
[2022-12-31] MEDS: LOSARTAN POTASSIUM 50 MG TABLET PO SCH (10:02)
[2022-12-31] MEDS: METOPROLOL TAR 25 MG TAB PO SCH ×2 (10:02→21:58)
[2022-12-31] MEDS: GABAPENTIN 100 MG CAP PO SCH (10:03)
[2022-12-31] MEDS: VANCOMYCIN 1.5 GM in NA CHLORIDE 0.9% 500 ML IVPB SCH (16:00)
[2022-12-31] MEDS: Mupirocin NASAL 2 APPL/1 GM TUBE NAS SCH ×2 (17:27→21:59)
[2022-12-31] MEDS: VANCOMYCIN 1.75 GM in NA CHLORIDE 0.9% 500 ML IVPB SCH (17:28)
[2023-01-01] MEDS: HYDROCODONE/APAP 7.5/325 MG TAB PO SCH ×4 (05:04→22:34)
[2023-01-01] MEDS: Mupirocin NASAL 2 APPL/1 GM TUBE NAS SCH (09:00)
[2023-01-01] MEDS: LOSARTAN POTASSIUM 50 MG TABLET PO SCH (11:03)
[2023-01-01] MEDS: CLOPIDOGREL 75 MG TABLET PO SCH (11:03)
[2023-01-01] MEDS: METOPROLOL TAR 25 MG TAB PO SCH ×2 (11:03→21:32)
[2023-01-01] MEDS: GABAPENTIN 100 MG CAP PO SCH (11:04)
[2023-01-01] MEDS: VANCOMYCIN 1.75 GM in NA CHLORIDE 0.9% 500 ML IVPB SCH (16:52)
--- NOTE | 2023-01-01 19:15 | PN ---
Date of Progress Note: 01/01/2023 The patient seems status quo. Does take his analgesics, which undoubtedly is leading to significant constipation. Will use SSE, awaiting transfer to SNF. Will continue with the present regimen. HR/MODL Voice ID: [id number] Report ID: [id number]
[2023-01-01] MEDS: BISACODYL E.C. 5 MG TAB PO PRN (21:32)
[2023-01-02] MEDS: HYDROCODONE/APAP 7.5/325 MG TAB PO SCH ×2 (05:49→10:37)
[2023-01-02] MEDS: CLOPIDOGREL 75 MG TABLET PO SCH (08:10)
[2023-01-02] MEDS: GABAPENTIN 100 MG CAP PO SCH (08:11)
[2023-01-02] MEDS: LOSARTAN POTASSIUM 50 MG TABLET PO SCH (08:11)
[2023-01-02] MEDS: METOPROLOL TAR 25 MG TAB PO SCH ×2 (08:11→21:06)
[2023-01-02] MEDS ORDERED: BISACODYL 10 MG RECTAL SUPP PR PRN (14:02)
[2023-01-02] MEDS: VANCOMYCIN 1.75 GM in NA CHLORIDE 0.9% 500 ML IVPB SCH (16:27)
--- NOTE | 2023-01-02 17:19 | PN ---
Date of Progress Note: 01/02/2023 Patient states he does feel better. He is now mobilized. Still states he has not had a bowel movemen t. We will add Dulcolax suppositories to the regimen. Still awaiting SNF arrangements. HR/MODL Voice ID: [id number] Report ID: [id number]
[2023-01-02] MEDS: cloNIDine HCL 0.1 MG TAB PO PRN (21:06)
[2023-01-03] MEDS: LOSARTAN POTASSIUM 50 MG TABLET PO SCH (08:52)
[2023-01-03] MEDS: GABAPENTIN 100 MG CAP PO SCH (08:52)
[2023-01-03] MEDS: METOPROLOL TAR 25 MG TAB PO SCH ×2 (08:52→21:58)
[2023-01-03] MEDS: CLOPIDOGREL 75 MG TABLET PO SCH (08:53)
[2023-01-03] MEDS ORDERED: D50W 25 GM/50 ML SYRINGE IV PRN (11:28)
[2023-01-03] MEDS ORDERED: GLUCAGON 1 MG/VIAL IM PRN (11:28)
[2023-01-03] MEDS: INSULIN REGULAR (HUMAN) 100 UNIT/ML SQ SCH ×3 (11:30→21:58)
[2023-01-03] MEDS ORDERED: D10W 125 ML IV PRN (11:40)
[2023-01-03] MEDS: VANCOMYCIN 1.75 GM in NA CHLORIDE 0.9% 500 ML IVPB SCH (16:47)
[2023-01-04] MEDS: INSULIN REGULAR (HUMAN) 100 UNIT/ML SQ SCH ×4 (07:30→21:20)
[2023-01-04] MEDS: LOSARTAN POTASSIUM 50 MG TABLET PO SCH (08:42)
[2023-01-04] MEDS: CLOPIDOGREL 75 MG TABLET PO SCH (08:42)
[2023-01-04] MEDS: METOPROLOL TAR 25 MG TAB PO SCH ×2 (08:42→21:18)
[2023-01-04] MEDS: GABAPENTIN 100 MG CAP PO SCH (08:42)
[2023-01-04] MEDS: ACETAMINOPHEN 500 MG TAB PO PRN (08:47)
[2023-01-04] MEDS ORDERED: FLUOCINONIDE 0.05% CREAM 30GM TOP PRN (14:55)
[2023-01-04] MEDS: VANCOMYCIN 1.75 GM in NA CHLORIDE 0.9% 500 ML IVPB SCH ×2 (16:01→17:00)
--- NOTE | 2023-01-04 18:05 | PN ---
Date of Progress Note: 01/04/2023 Patient seems somewhat better today. He has now had a bowel movement. His pain has been decreased. We will change the pain management to a p.r.n. basis. Still awaiting insurance clearance for locati on with his SNF in [place] being the most likely. We will continue with the same regimen over the w eekend. HR/MODL Voice ID: [id number] Report ID: [id number]
--- NOTE | 2023-01-04 18:14 | PN ---
Date of Progress Note: 01/04/2023 Patient continues to do better as far as mobilization is concerned. The wound seems to be healing qu ite well. The area of cellulitis anterior portion of the lower leg is improved considerably. We ramses l add a cortisone cream to stop some of the symptoms. His sugar, however, was slightly more elevated than usual and we will therefore consider adding metformin if it stays like this and we will increas e it to a moderate sliding scale. Awaiting insurance disposition. HR/MODL Voice ID: [id number] Report ID: [id number]
[2023-01-05] MEDS ORDERED: PANTOPRAZOLE 40MG TABLET PO ONE (04:44)
[2023-01-05] MEDS: cloNIDine HCL 0.1 MG TAB PO PRN ×2 (05:18→20:49)
[2023-01-05 05:24] LABS: Absolute Lymphocytes (CBC) 1.2 K/uL (0.7-4.9); Lymphocytes % 19.4 % (15.3-44.8); MCV 77.8 fL (80-100); MPV 7.6 fL (7.6-11.3); Platelets 200 thou/uL (152-406)
[2023-01-05 05:49] LABS: Potassium 3.7 mEq/L (3.5-5.1)
[2023-01-05] MEDS: LOSARTAN POTASSIUM 50 MG TABLET PO SCH (10:01)
[2023-01-05] MEDS: GABAPENTIN 100 MG CAP PO SCH (10:01)
[2023-01-05] MEDS: METOPROLOL TAR 25 MG TAB PO SCH ×2 (10:01→20:49)
[2023-01-05] MEDS: CLOPIDOGREL 75 MG TABLET PO SCH (10:02)
[2023-01-05] MEDS: ENOXAPARIN 30 MG/0.3 ML SQ SCH (10:02)
[2023-01-05] MEDS: INSULIN REGULAR (HUMAN) 100 UNIT/ML SQ SCH ×4 (10:11→20:50)
[2023-01-05] MEDS: VANCOMYCIN 1.75 GM in NA CHLORIDE 0.9% 500 ML IVPB SCH (18:27)
[2023-01-05] MEDS: FLUOCINONIDE 0.05% CREAM 30GM TOP SCH ×2 (18:37→20:51)
--- NOTE | 2023-01-05 19:36 | PN ---
Date of Progress Note: 01/05/2023 The patient basically is status quo, awaiting insurance disposition. Sugars, they are being monitore d. His vital signs are stable. HR/MODL Voice ID: [id number] Report ID: [id number]
[2023-01-05] MEDS: DIPHENHYDRAMINE 25 MG TAB/CAP PO PRN (19:54)
[2023-01-05] MEDS: dexAMETHasone 4 MG/ML VIAL IV PRN (19:54)
[2023-01-06] MEDS: PANTOPRAZOLE 40MG TABLET PO SCH (05:37)
[2023-01-06] MEDS: ENOXAPARIN 30 MG/0.3 ML SQ SCH (08:47)
[2023-01-06] MEDS: CLOPIDOGREL 75 MG TABLET PO SCH (08:47)
[2023-01-06] MEDS: LOSARTAN POTASSIUM 50 MG TABLET PO SCH (08:48)
[2023-01-06] MEDS: METOPROLOL TAR 25 MG TAB PO SCH ×2 (08:48→21:00)
[2023-01-06] MEDS: GABAPENTIN 100 MG CAP PO SCH (08:48)
[2023-01-06] MEDS: FLUOCINONIDE 0.05% CREAM 30GM TOP SCH ×2 (08:51→21:00)
[2023-01-06] MEDS: INSULIN REGULAR (HUMAN) 100 UNIT/ML SQ SCH ×5 (08:51→21:00)
--- NOTE | 2023-01-06 09:14 | RAD REPORT ---
EXAM DESCRIPTION: RAD - Foot Left 2 View - 01/06/2023 6:27 am CLINICAL HISTORY: cellulitis COMPARISON: No comparisons TECHNIQUE: Left foot, 3 views. FINDINGS: No fracture, dislocation or periosteal reaction. Sclerotic focus along the lateral and ost ium of the distal tibia is nonspecific and may relate to sequelae of a healed fracture. Mild soft tissue swelling at the base of the great toe. No air or foreign body in the soft tissues. Vascular calcifications. IMPRESSION: Soft tissue swelling as above. No acute osseous abnormality.
--- NOTE | 2023-01-06 11:36 | P.CNS ---
Date of Consult: 01/06/23 Reason for Consult: osteomyelitis Requesting Physician: Yefri Salgado History of Present Illness: Patient is an 87 yo male with a past medical history of CAD s/p CABG, diabetes mellitus type II, prior osteomyelitis s/p right below-knee amputation who presented to the ED with complaints of left lower extremity wound pain. Per report, he has been seen in [facility] and has been on various antibiotics and local wound care treatments without improvement. He was admitted following surgical debridement of left lateral malleolar ulcer on 12/27. He was diagnosed with Osteomyelitis of left lower extremity and started on Vancomycin IV. Plan for antibiotic therapy for 6 weeks duration. Patient developed rash during vancomycin infusion infectious disease was consulted for alternative antibiotic. Allergies vancomycin Allergy (Verified 01/05/23 21:43) Itching/Hives/Rash Home medications list reviewed: Yes Home Medications: Clopidogrel Bisulfate [Plavix] 75 mg PO DAILY 06/29/20 Gabapentin 400 mg PO DAILY 06/29/20 Glipizide [Glipizide Xl] 10 mg PO BID 06/29/20 Metoprolol Tartrate 25 mg PO BID 06/29/20 Pravastatin Sodium 40 mg PO BEDTIME 06/29/20 Tamsulosin [Flomax] 0.4 mg PO BEDTIME 06/29/20 Metformin HCl 1 tab PO BID 07/11/20 cilostazoL [Cilostazol] 2 tab PO DAILY 07/11/20 Cyclobenzaprine [Flexeril*] 5 mg PO TID PRN 12/26/22 Losartan Potassium 25 mg PO DAILY 12/26/22 Omeprazole [Prilosec] 40 mg PO DAILY 12/26/22 - Past Medical/Surgical History -: diabetic -: hypertension -: right BKA -: heart stents - Social History Alcohol use: No CD- Drugs: No Caffeine use: Yes Review of Systems 10-point ROS is otherwise unremarkable Musculoskeletal: Other (righ BKA) Integumentary: Other (left ankle ulcer) Physical Examination Temp Pulse Resp BP Pulse Ox 97.3 F 42 L 17 151/56 H 97 01/06/23 08:00 01/06/23 08:00 01/06/23 08:00 01/06/23 08:00 01/06/23 08:00 General: Alert, In no apparent distress, Oriented x3 HEENT: Atraumatic, Normocephalic, Other (left eye conjunctiva red) Neck: Supple Respiratory: Clear to auscultation bilaterally, Normal air movement Cardiovascular: No edema, Regular rate/rhythm Gastrointestinal: Normal bowel sounds, No tenderness Musculoskeletal: Other (right BKA with prosthesis) Integumentary: Erythema (LLE), Diabetic ulcer (left lateral ankle), Other (onychomycosis) Neurological: Normal speech, Normal tone, Normal affect Laboratory Data - Reviewed Microbiology Data - Reviewed Imagings Data: - Reviewed Conclusions/Impression: Problem List Osteomyelitis of Left Lower Extremity Cellulitis left lower extremity Hypertension Diabetes Mellitus type II CAD s/p CABG Right BKA Osteomyelitis Left Lower Extremity Cellulitis Left Lower Extremity - rash developed during vancomycin infusion. - PICC line in place - no leukocytosis - afebriile - s/p debridement 12/27 Recommendations Osteomyelitis: Due to rash during Vancomycin IV infusion, consider switch to Daptomycin 6 mg/kg IV to complete remainder of antibiotic course. - Obtain CK and BMP labs weekly - Continue wound care per Dr. Salgado - Follow up with Dr. Salgado as outpatient Case discussed with Max Araujo who is in agreement with plan. Thank you Dr. Salgado for consult.
[2023-01-06] MEDS: DAPTOmycin 500 MG in NA CHLORIDE 0.9% 100 ML IVPB SCH (16:28)
--- NOTE | 2023-01-06 20:10 | PN ---
Date of Progress Note: 01/06/2023 The patient has had a questionable reaction to vancomycin. X-ray does not show as well. The fact that it has not progressed, this is a positive as far as his generalized use of antibiotics. Seen by Infectious Disease. We will switch over to daptomycin. The patient has been accepted at a [facility] unit in [place], however, this will be delayed at least 24 hours, so we can get established wheth er he can tolerate this IV antibiotic. The vancomycin status was somewhat confusing, but he did say it itched lower extremities as well as the site of the PICC line. Therefore, we will make the switch . HR/MODL Voice ID: [id number] Report ID: [id number]
[2023-01-07] MEDS: PANTOPRAZOLE 40MG TABLET PO SCH (05:29)
[2023-01-07] MEDS: cloNIDine HCL 0.1 MG TAB PO PRN (08:12)
[2023-01-07] MEDS: LOSARTAN POTASSIUM 50 MG TABLET PO SCH (08:12)
[2023-01-07] MEDS: GABAPENTIN 100 MG CAP PO SCH (08:12)
[2023-01-07] MEDS: CLOPIDOGREL 75 MG TABLET PO SCH (08:12)
[2023-01-07] MEDS: ENOXAPARIN 30 MG/0.3 ML SQ SCH (08:13)
[2023-01-07] MEDS: INSULIN REGULAR (HUMAN) 100 UNIT/ML SQ SCH ×4 (08:13→21:00)
[2023-01-07] MEDS: FLUOCINONIDE 0.05% CREAM 30GM TOP SCH ×2 (08:15→20:56)
--- NOTE | 2023-01-07 08:23 | P.PN ---
Date of Service: 01/07/23 Reason for Consult: osteomyelitis Subjective: Denies any new or worsening complaints. In no apparent distress. No acute events reported overnight. No adverse reactions reported to Daptomycin. Physical Examination Temp Pulse Resp BP Pulse Ox 97.5 F 46 L 18 191/77 H 96 01/07/23 04:00 01/07/23 08:12 01/07/23 04:00 01/07/23 08:12 01/07/23 04:00 General: Alert, In no apparent distress, Oriented x3 HEENT: Atraumatic, Normocephalic. Neck: Supple Respiratory: Clear to auscultation bilaterally, Normal air movement Cardiovascular: No edema, Regular rate/rhythm Gastrointestinal: Normal bowel sounds, No tenderness Musculoskeletal: Other (right BKA with prosthesis) Integumentary: Erythema (LLE), Diabetic ulcer (left lateral ankle), Other (onychomycosis) Neurological: Normal speech, Normal tone, Normal affect Laboratory Data - Reviewed Microbiology Data - Reviewed Imagings Data: - Reviewed Medications List: Reviewed Assessment and Plan Problem List Osteomyelitis of Left Lower Extremity Cellulitis left lower extremity Hypertension Diabetes Mellitus type II CAD s/p CABG Right BKA Osteomyelitis Left Lower Extremity Cellulitis Left Lower Extremity - rash developed during vancomycin infusion. discontinued. - Started on Daptomycin IV 01/06 - PICC line in place - no leukocytosis - afebriile - s/p debridement 12/27 Recommendations Osteomyelitis: Continue Daptomycin IV to complete remainder of antibiotic course. Daptomycin started 01/06. - Obtain CK and BMP labs weekly - Continue wound care per Dr. Salgado - Follow up with Dr. Salgado as outpatient Case discussed with Max Araujo who is in agreement with plan.
[2023-01-07] MEDS: METOPROLOL TAR 25 MG TAB PO SCH ×3 (09:00→20:58)
[2023-01-07 10:49] VITALS: O2SAT 96
[2023-01-07] MEDS: HYDROCODONE/APAP 7.5/325 MG TAB PO PRN (12:20)
[2023-01-07] MEDS: DAPTOmycin 500 MG in NA CHLORIDE 0.9% 100 ML IVPB SCH (17:16)
--- NOTE | 2023-01-07 19:08 | PN ---
Date of Progress Note: 01/07/2023 Patient developed some itching with no rash or urticaria after vancomycin dose last night, was theref ore discontinued. He was given Decadron and Benadryl. There was no significant rash apparent, but c omplained of itch at the site of the PICC line, the lower leg and the back area. This was concurrent with a rash over the lower back today possibly secondary to developing impetigo and feel more of a c ontact dermatitis rather than an allergic reaction. However, due to the possibility of being an stacia rgic reaction, daptomycin was started at the suggestion of the Infectious Disease doctor. He has bee n accepted at [facility] in [place]. However, this is put on delay, so we could get at least 2 doses of dapto mycin given IV, make sure there was no sensitivity there. If in fact he tolerates it, he should be a ble to be transferred, discharged in a.m. HR/MODL Voice ID: [id number] Report ID: [id number]
[2023-01-07] MEDS ORDERED: FLUOCINONIDE 0.05% CREAM 30GM TOP SCH (21:00)
[2023-01-07] MEDS: dexAMETHasone 4 MG/ML VIAL IV PRN (21:44)
[2023-01-07] MEDS: DIPHENHYDRAMINE 25 MG TAB/CAP PO PRN (21:44)
[2023-01-08] MEDS: HYDROCODONE/APAP 7.5/325 MG TAB PO PRN (03:25)
[2023-01-08] MEDS: PANTOPRAZOLE 40MG TABLET PO SCH (05:37)
[2023-01-08] MEDS: INSULIN REGULAR (HUMAN) 100 UNIT/ML SQ SCH ×3 (07:30→16:53)
[2023-01-08] MEDS: CLOPIDOGREL 75 MG TABLET PO SCH (08:26)
[2023-01-08] MEDS: GABAPENTIN 100 MG CAP PO SCH (08:27)
[2023-01-08] MEDS: METOPROLOL TAR 25 MG TAB PO SCH (08:27)
[2023-01-08] MEDS: LOSARTAN POTASSIUM 50 MG TABLET PO SCH (08:27)
[2023-01-08] MEDS: ENOXAPARIN 30 MG/0.3 ML SQ SCH (08:28)
[2023-01-08] MEDS: FLUOCINONIDE 0.05% CREAM 30GM TOP SCH (08:31)
[2023-01-08] MEDS: DAPTOmycin 500 MG in NA CHLORIDE 0.9% 100 ML IVPB SCH (14:55)
[2023-01-08 16:09] VITALS: BP 145/62; TEMP 98
--- NOTE | 2023-01-08 17:11 | P.PN ---
Date of Service: 01/08/23 Reason for Consult: osteomyelitis Subjective: In no apparent distress. Denies any new or worsening complaints. No acute events reported overnight. Pending discharge to [facility] Physical Examination Temp Pulse Resp BP Pulse Ox 98.0 F 51 14 145/62 H 100 01/08/23 16:00 01/08/23 16:00 01/08/23 16:00 01/08/23 16:00 01/08/23 16:00 General: Alert, In no apparent distress, Oriented x3 HEENT: Atraumatic, Normocephalic. Respiratory: Clear to auscultation bilaterally, Normal air movement Cardiovascular: No edema, Regular rate/rhythm Gastrointestinal: Normal bowel sounds, No tenderness Musculoskeletal: right BKA with prosthesis Integumentary: Erythema LLE. Diabetic ulcer left lateral ankle. Onychomycosis. Neurological: Normal speech, Normal tone, Normal affect Laboratory Data - Reviewed Microbiology Data - Reviewed Imagings Data: - Reviewed Medications List: Reviewed Assessment and Plan Problem List Osteomyelitis of Left Lower Extremity Cellulitis left lower extremity Hypertension Diabetes Mellitus type II CAD s/p CABG Right BKA Osteomyelitis Left Lower Extremity Cellulitis Left Lower Extremity - rash developed during vancomycin infusion. discontinued. - Started on Daptomycin IV 01/06 - PICC line in place - no leukocytosis - afebriile - s/p debridement 12/27 Recommendations Osteomyelitis: Continue Daptomycin IV to complete remainder of antibiotic course. Daptomycin started 01/06. - Obtain CK and BMP labs weekly - Continue wound care per Dr. Salgado - Follow up with Dr. Salgado as outpatient Pending discharge to [facility]. Case discussed with Max Araujo who is in agreement with plan.
--- NOTE | 2023-01-08 19:14 | PN ---
Date of Progress Note: 01/08/2023 The patient continues to complain of some itching. However, on close questioning with his granddaugh madiha, I think there is a contact dermatitis rather than a true allergy. In any event, he can be disch arged to the [facility] to continue on the same regimen and using the PICC line for another 3 weeks of the I V antibiotics, even though it was questionable whether the vancomycin was etiology. He will be seen by wound clinic at the [facility] where he has been assigned to. Follow up with Dr. Gonzales or myself w hen he is discharged. HR/MODL Voice ID: [id number] Report ID: [id number]
== END 2023-01-08 19:30 | DRG 623 ==
LOC: 2ND 13:52
PROVIDERS: ADMIT Family Medicine; ATTEND Family Medicine
PROC: 02HV33Z Insertion of Infusion Device into Superior Vena Cava, Percutaneous Approach (ICD-10-PCS; 2022-12-27)
PROC: 0JBR0ZZ Excision of Left Foot Subcutaneous Tissue and Fascia, Open Approach (ICD-10-PCS; principal; 2022-12-27 09:30)
DX: E11.69 Type 2 diabetes mellitus with other specified complication (principal); L03.116 Cellulitis of left lower limb; M86.8X7 Other osteomyelitis, ankle and foot; E11.51 Type 2 diabetes mellitus with diabetic peripheral angiopathy without gangrene; E11.621 Type 2 diabetes mellitus with foot ulcer; L97.529 Non-pressure chronic ulcer of other part of left foot with unspecified severity; I10 Essential (primary) hypertension; I25.10 Atherosclerotic heart disease of native coronary artery without angina pectoris; B35.1 Tinea unguium; Z95.1 Presence of aortocoronary bypass graft; Z95.5 Presence of coronary angioplasty implant and graft; Z79.84 Long term (current) use of oral hypoglycemic drugs; Z79.02 Long term (current) use of antithrombotics/antiplatelets; Z89.511 Acquired absence of right leg below knee; Z79.899 Other long term (current) drug therapy
CPT/HCPCS: 36415; 36569; 36600; 71045; 80048; 80202; 82550; 82947; 83036; 85025; 87070; 87075; 87205; 93005; 97110; 97116; 97163; 97530; 99213; J0690; J0878; J1100; J1650; J1815; J2001; J2270; J2405; J2704; J3010; J3590; J7030; J7040; J7050